=== PATIENT | male | born 1945 | race Caucasian/White ===

== ENCOUNTER → 2016-10-08 | Outpatient (CLI) | payer MEDICARE ==
[~2016-10-08] MED LIST: /ALEN70TA OR; /FENO48TA OR; /PANT40TA OR; /PANT40TA PO; /PRAV20TA PO; ASPI81TA45 PO; ASPI81TA83 OR; ATIV0.5T3 PO; AUGM500T34 PO; AUGM875T27 PO; AZAT50TA2 PO; AZAT5TAB PO; Antibiotic PO; B COCAP4 PO; BACITAB3 PO; BACT400T OR; CALC0.25 PO; CEFT500T OR; CEFT500T PO; DIAZ2TAB PO; DICL13PA TD; DICL50TAB PO; DOCU10CA PO; DOXY150C PO; DYAZCA PO; FENT1DIS14 TD; FERR325T OR; FERR325T69 PO; FOSI10TA PO; FOSI10TA2 OR; GABA300C3 PO; HYDR-4274 PO; HYDR25T PO; HYDR50TA8 OR; HYDROCHLOROTHIAZIDE; HYDROCHLOROTHIAZIDE PO; IMURAN OR; KPHOS PO; LABE10TAB PO; LABE30TA OR; LIDO5DIS36 TD; MAG400TA PO; MAGN500T PO; MAGN500T5 PO; MAGNESIUM GLUCONATE PO; META28.35 PO; METAPKT PO; MILKSUS PO; MONOPRIL PO; MULTCAP PO; NEPH1CAP4 PO; NEUR300C PO; OXYC-208 PO; OXYCO5TA PO; PERCOCET PO; POTA50TAB PO; PRAVASTATIN OR; PRED5TA PO; PRED5TAB OR; PROM25TA PO; RAPA1TAB PO; SENN15UDC PO; SENO8.6T10 PO; SENO8.6T2 PO; SENS60TA PO; SENSIPAR; SENSIPAR OR; SODI1TA PO; SOMA250T PO; SPIR25TA2 PO; SUPETAB PO; TEMA15CA2 PO; TORS20TA2 PO; TRAM50TA2 OR; TRIA37.53 PO; TRIAMTERENE; TRIAMTERENE PO; TYLE325T5 PO; TYLENOL PO; VOLT1GEL24 TD; ZANA4CAP PO; ZITH250T OR; ZOLP10TA2 PO; [UNRECOGNIZED DRUG - CODE]; [UNRECOGNIZED DRUG - CODE]; [UNRECOGNIZED DRUG - OTHER] OR; [UNRECOGNIZED DRUG - OTHER] PO; [UNRECOGNIZED DRUG - OTHER] PO; [UNRECOGNIZED DRUG - OTHER] PO; atarax PO
--- NOTE | 2016-10-08 13:21 | REP ---
MRI study left knee without contrast: History: Left knee pain. Injury in a fall 2 weeks ago. No comparison radiographs available. Technique: Axial, coronal, and sagittal imaging planes are utilized for T1, proton density and T2-weighted scans obtained in the usual fashion with and without fat saturation. MRI findings: There is evidence of mild marrow edema in the posterior aspect and medial aspect of the proximal tibia consistent with some degree of marrow contusion. No occult fracture is visible. There is a zone of marrow edema in the posterior aspect of the medial femoral condyle as well. Subcortical cyst formation is seen in the central patella. Cortical and medullary bone signal intensity are otherwise normal. There is diffuse swelling and heterogeneous increased signal intensity on T2-weighted true FISP sequence in the patellar tendon consistent with patellar tendinosis tendonitis. There is some bony hypertrophy at the patellar tendon insertion on the body of the patella. Quadriceps tendon is unremarkable. There is minimal osteophytic lipping of the patella on sagittal images. Medial and lateral patellar retinacular structures appear intact. There is no evidence of medial or lateral collateral ligament disruption. Anterior and posterior cruciate ligaments have an intact appearance. There is a complex tear involving the midbody and posterior horn of the medial meniscus with increased signal intensity extending predominately to the inferior articular margin of the meniscus. No displaced meniscal material is appreciated. No definite lateral meniscal tear is seen. There is diffuse thinning of the articular cartilage at the medial femoral condyle and medial tibial plateau consistent with chondromalacia. There is some chondromalacia in the patella too with a central fissure through the articular cartilage immediately superficial to the subcortical cyst formation mentioned above. There is a small Tariq's cyst in the posteromedial popliteal soft tissues. Impression: 1. Complex tear medial meniscus. 2. Tariq's cyst. 3. Marrow contusion pattern in the posteromedial tibial plateau and in the posterior aspect of the medial femoral condyle. 4. 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 5. Advanced tendinosis in the patellar tendon diffusely. 6. Early osteoarthritic patellar spurring. Signed by Vadim Warner MD 10/08/2016 01:44 P
== END ==
LOC: M RAD 11:20
PROVIDERS: ATTEND Physician Assistant Medical
DX: M25.562 Pain in left knee (principal)

== ENCOUNTER → 2016-11-01 | Outpatient (REF) | payer MEDICARE ==
[~2016-11-01] MED LIST changes: +OXYC-517 PO; -OXYCO5TA PO
== END ==
LOC: M LAB REF 13:19
PROVIDERS: ATTEND Internal Medicine Nephrology
DX: Z94.0 Kidney transplant status (principal)

== ENCOUNTER → 2017-01-06 | Outpatient (REF) | payer MEDICARE ==
[~2017-01-06] MED LIST changes: +GABA-282 PO; -GABA300C3 PO
== END ==
LOC: M LAB REF 14:04
PROVIDERS: ATTEND Internal Medicine Nephrology
DX: Z94.0 Kidney transplant status (principal)

== ENCOUNTER → 2017-01-20 | Outpatient (REF) | payer MEDICARE | LOC: M LAB REF 10:30 | PROVIDERS: ATTEND Surgery | DX: C44.621 Squamous cell carcinoma of skin of unspecified upper limb, including shoulder (principal) ==

== ENCOUNTER → 2017-04-11 | Outpatient (REF) | payer MEDICARE ==
[~2017-04-11] MED LIST changes: +AMIL25TA; -AUGM875T27 PO; +AUGM875T28 PO; -AZAT5TAB PO; +BACITAB PO; -BACITAB3 PO; +CINA30TA; +HYDR-3363 PO; -HYDR-4274 PO; -HYDR25T PO; +HYDR50TA70 PO; +KPHOS50TA; -LIDO5DIS36 TD; +LIDO5DIS41 TD; +METO50TA7; +POTA10TA17; -SENO8.6T2 PO; +SENO8.6T5 PO; +VOLT1GEL15 TD; -VOLT1GEL24 TD
== END ==
LOC: M LAB REF 13:38
PROVIDERS: ATTEND Internal Medicine Nephrology
DX: Z94.0 Kidney transplant status (principal)

== ENCOUNTER 2017-06-28 11:08 | Emergency (ER) | payer MEDICARE ==
[~2017-06-28] VITALS: Ht 177.8 cm; Wt 77.3 kg
[~2017-06-28 11:08] MED LIST changes: -AMIL25TA; -CINA30TA; -KPHOS50TA; -METO50TA7; -POTA10TA17
[2017-06-28] MEDS ORDERED: AMIL25TA (11:20)
[2017-06-28] MEDS ORDERED: CINA30TA (11:20)
[2017-06-28] MEDS ORDERED: POTA10TA17 (11:20)
[2017-06-28] MEDS ORDERED: METO50TA7 (11:20)
[2017-06-28] MEDS ORDERED: KPHOS50TA (11:20)
[2017-06-28 14:12] LABS: BASO % 0.1 % (0.0-1.0); EOS % 0.1 % (0.0-3.0); IMMATURE GRANULOCYTE % 0.6 % (0-0); LYMPH # 1.7 10^3/uL (1.5-4.5); LYMPH % 20.9 % (24.0-44.0); MEAN CORPUSCULAR HEMOGLOBIN 28.9 pg (27.0-33.0); MEAN CORPUSCULAR HGB CONC 32.7 g/dl (32.0-36.5); MEAN CORPUSCULAR VOLUME 88.5 fl (80.0-96.0); MONO # 0.7 10^3/uL (0.0-0.8); MONO % 8.4 % (0.0-5.0); NEUTROPHILS # 5.6 10^3/uL (1.8-7.7); NEUTROPHILS % 69.9 % (36.0-66.0); PLATELET COUNT, AUTOMATED 191 10^3/uL (150-450); RED CELL DISTRIBUTION WIDTH 14.9 % (11.5-14.5)
[2017-06-28 14:15] LABS: ADD MANUAL DIFFER NO; DIFF SLIDE NUMBER 261
[2017-06-28 14:18] LABS: INR 0.87
[2017-06-28 14:39] LABS: ALBUMIN 3.6 GM/DL (3.2-5.2); ALBUMIN/GLOBULIN RATIO 1.24 (1.00-1.93); ALKALINE PHOSPHATASE 88 U/L (45-117); ALT/SGPT 49 U/L (12-78); ANION GAP 6 MEQ/L (8-16); AST/SGOT 51 U/L (15-37); BILIRUBIN,DIRECT 0.2 MG/DL (0.0-0.2); BILIRUBIN,TOTAL 0.6 MG/DL (0.2-1.0); BLOOD UREA NITROGEN 15 MG/DL (7-18); CALCIUM LEVEL 8.9 MG/DL (8.8-10.2); CARBON DIOXIDE LEVEL 27 MEQ/L (21-32); CHLORIDE LEVEL 109 MEQ/L (98-107); CREATININE FOR GFR 0.77 MG/DL (0.70-1.30); GLOMERULAR FILTRATION RATE > 60.0 (>42); GLUCOSE, FASTING 109 MG/DL (83-110); POTASSIUM SERUM 4.4 MEQ/L (3.5-5.1); SODIUM LEVEL 142 MEQ/L (136-145); TOTAL PROTEIN 6.5 GM/DL (6.4-8.2)
[2017-06-28 15:28] VITALS: BP 143/82
== END 2017-06-28 15:32 | disposition home or self-care (01) ==
LOC: M ED 11:08
DX: K46.9 Unspecified abdominal hernia without obstruction or gangrene (principal); I10 Essential (primary) hypertension; F41.9 Anxiety disorder, unspecified; Z79.899 Other long term (current) drug therapy; Z79.82 Long term (current) use of aspirin; Z79.52 Long term (current) use of systemic steroids; Z88.5 Allergy status to narcotic agent; Z88.8 Allergy status to other drugs, medicaments and biological substances; Z94.0 Kidney transplant status; Z98.890 Other specified postprocedural states

== ENCOUNTER → 2017-09-07 | Outpatient (REF) | payer MEDICARE ==
[~2017-09-07] MED LIST changes: +AMIL25TA; +CINA30TA; +KPHOS50TA; +METO50TA7; +POTA10TA17
== END ==
LOC: M LAB REF 11:14
PROVIDERS: ATTEND Internal Medicine Nephrology
DX: Z94.0 Kidney transplant status (principal); R19.7 Diarrhea, unspecified

== ENCOUNTER → 2017-10-03 | Outpatient (CLI) | payer MEDICARE | LOC: M RAD 13:12 | DX: R13.10 Dysphagia, unspecified (principal) | CPT/HCPCS: 72040 ==

== ENCOUNTER → 2017-10-20 | Outpatient (REF) | payer MEDICARE | LOC: M LAB REF 18:09 | DX: D48.5 Neoplasm of uncertain behavior of skin (principal) | CPT/HCPCS: 88305 ==

== ENCOUNTER 2017-11-11 08:26 | Day surgery (SDC) | payer MEDICARE ==
[2017-11-11] MEDS ORDERED: LR 1,000 ML IV ×2 (08:45→13:00)
[2017-11-11] MEDS: METOPROLOL TART 50 MG TAB PO (10:44)
[2017-11-11] MEDS ORDERED: MIDAZOLAM INJ 2 MG/2 ML VIAL (J2250) As Ordered (11:09)
[2017-11-11] MEDS ORDERED: fentaNYL 100 MCG/2 ML INJECTION (J3010) As Ordered (11:09)
[2017-11-11] MEDS ORDERED: PROPOFOL 200 MG/20 ML VIAL As Ordered ×2 (11:09→12:01)
[2017-11-11] MEDS: BUPIVACAINE HCL 0.25% 10 ML VIAL As Ordered (11:55)
[2017-11-11] MEDS: LIDOCAINE W/EPINEPHRINE 1% 20ML VIAL As Ordered (11:55)
[2017-11-11] MEDS: BACITRACIN OINT 30GM As Ordered (12:00)
[2017-11-11] MEDS ORDERED: ONDANSETRON 4MG/2ML VIAL (J2405) IV ×2 (13:00)
[2017-11-11] MEDS ORDERED: PERCOCET 5MG/325MG TAB PO (13:00)
[2017-11-11] MEDS ORDERED: fentaNYL 100 MCG/2 ML INJECTION (J3010) IV (13:00)
[2017-11-11] MEDS ORDERED: NORCO, ANEXSIA 5/325MG TABLET (HYDROcodone/ACETAMINOPHEN) PO (13:00)
== END 2017-11-11 13:00 | disposition home or self-care (01) ==
LOC: M SDC 08:26
DX: C44.42 Squamous cell carcinoma of skin of scalp and neck (principal); L57.0 Actinic keratosis; I11.0 Hypertensive heart disease with heart failure; I50.32 Chronic diastolic (congestive) heart failure; E78.00 Pure hypercholesterolemia, unspecified; Z94.0 Kidney transplant status; R13.10 Dysphagia, unspecified; E83.42 Hypomagnesemia; N25.81 Secondary hyperparathyroidism of renal origin; G47.00 Insomnia, unspecified; M54.2 Cervicalgia; K21.9 Gastro-esophageal reflux disease without esophagitis; M19.90 Unspecified osteoarthritis, unspecified site; R01.0 Benign and innocent cardiac murmurs; Z79.899 Other long term (current) drug therapy; Z79.82 Long term (current) use of aspirin; Z79.52 Long term (current) use of systemic steroids; Z88.8 Allergy status to other drugs, medicaments and biological substances; Z88.1 Allergy status to other antibiotic agents; Z88.5 Allergy status to narcotic agent
CPT/HCPCS: 14020

== ENCOUNTER 2017-12-09 19:36 | Emergency (ER) | payer MEDICARE ==
[2017-12-09] MEDS: methylPREDNISolone INJ 125 MG/2 ML VIAL (J2930) IM (22:30)
[2017-12-09] MEDS: PREGABALIN 75 MG CAP(LYRICA) PO (22:30)
== END 2017-12-09 23:08 | disposition home or self-care (01) ==
LOC: M ED 19:36
DX: M54.12 Radiculopathy, cervical region (principal); G89.29 Other chronic pain; I12.9 Hypertensive chronic kidney disease with stage 1 through stage 4 chronic kidney disease, or unspecified chronic kidney disease; N18.9 Chronic kidney disease, unspecified; Z88.8 Allergy status to other drugs, medicaments and biological substances; Z88.1 Allergy status to other antibiotic agents; Z88.5 Allergy status to narcotic agent; Z94.0 Kidney transplant status; Z98.890 Other specified postprocedural states; Z87.891 Personal history of nicotine dependence
CPT/HCPCS: J2930

== ENCOUNTER → 2018-01-25 | Outpatient (REF) | payer MEDICARE ==
[2018-01-27 08:06] LABS: SIROLIMUS (RAPAMUNE) LABCORP 23.2 ng/mL (3.0-20.0)
== END ==
LOC: M LAB REF 13:11
DX: Z94.0 Kidney transplant status (principal)
CPT/HCPCS: 80195

== ENCOUNTER → 2018-02-27 | Outpatient (CLI) | payer MEDICARE ==
[2018-02-27 13:58] LABS: HEMATOCRIT 40.2 % (42.0-52.0); HEMOGLOBIN 12.9 g/dl (13.5-17.5); MEAN CORPUSCULAR HEMOGLOBIN 28.9 pg (27.0-33.0); MEAN CORPUSCULAR HGB CONC 32.1 g/dl (32.0-36.5); MEAN CORPUSCULAR VOLUME 89.9 fl (80.0-96.0); PLATELET COUNT, AUTOMATED 208 10^3/uL (150-450); RED BLOOD COUNT 4.47 10^6/uL (4.30-6.10); RED CELL DISTRIBUTION WIDTH 14.5 % (11.5-14.5); WHITE BLOOD COUNT 8.5 10^3/uL (4.0-10.0)
[2018-02-27 14:27] LABS: ANION GAP 2 MEQ/L (8-16); BLOOD UREA NITROGEN 18 MG/DL (7-18); CALCIUM LEVEL 9.4 MG/DL (8.8-10.2); CARBON DIOXIDE LEVEL 31 MEQ/L (21-32); CHLORIDE LEVEL 108 MEQ/L (98-107); CREATININE FOR GFR 0.81 MG/DL (0.70-1.30); GLOMERULAR FILTRATION RATE > 60.0 (>42); GLUCOSE, FASTING 112 MG/DL (70-100); MAGNESIUM LEVEL 1.8 MG/DL (1.8-2.4); POTASSIUM SERUM 4.6 MEQ/L (3.5-5.1); SODIUM LEVEL 141 MEQ/L (136-145); THYROID STIMULATING HORMONE 0.859 uIU/ML (0.358-3.740)
== END ==
LOC: M LAB 13:08
DX: I48.91 Unspecified atrial fibrillation (principal)
CPT/HCPCS: 83735

== ENCOUNTER → 2018-05-09 | Outpatient (REF) | payer MEDICARE ==
[2018-05-13 08:06] LABS: SIROLIMUS (RAPAMUNE) LABCORP 23.7 ng/mL (3.0-20.0)
== END ==
LOC: M LAB REF 13:21
DX: Z94.0 Kidney transplant status (principal); E83.42 Hypomagnesemia; N25.81 Secondary hyperparathyroidism of renal origin
CPT/HCPCS: 80195

== ENCOUNTER → 2018-05-16 | Outpatient (REF) | payer MEDICARE ==
[2018-05-16 13:38] LABS: INR 3.84; PROTHROMBIN TIME 38.7 SECONDS (12.1-14.4)
== END ==
LOC: M LAB REF 13:06
DX: Z79.01 Long term (current) use of anticoagulants (principal)
CPT/HCPCS: 85610

== ENCOUNTER → 2018-06-02 | Outpatient (REF) | payer MEDICARE ==
[2018-06-02 13:39] LABS: PROTHROMBIN TIME 13.3 SECONDS (12.1-14.4)
== END ==
LOC: M LAB REF 13:04
DX: Z51.81 Encounter for therapeutic drug level monitoring (principal); Z79.01 Long term (current) use of anticoagulants
CPT/HCPCS: 85610

== ENCOUNTER → 2018-06-02 | Outpatient (REF) | payer MEDICARE ==
[2018-06-09 00:07] LABS: SIROLIMUS (RAPAMUNE) LABCORP 24.1 ng/mL (3.0-20.0)
== END ==
LOC: M LAB REF 17:24
DX: Z94.0 Kidney transplant status (principal)
CPT/HCPCS: 80195

== ENCOUNTER → 2018-06-09 | Outpatient (REF) | payer MEDICARE ==
[2018-06-14 00:07] LABS: SIROLIMUS (RAPAMUNE) LABCORP 10.8 ng/mL (3.0-20.0)
== END ==
LOC: M LAB REF 13:04
DX: Z94.0 Kidney transplant status (principal); Z51.81 Encounter for therapeutic drug level monitoring; Z79.01 Long term (current) use of anticoagulants
CPT/HCPCS: 85610

== ENCOUNTER → 2018-06-09 | Outpatient (REF) | payer MEDICARE ==
[2018-06-09 14:06] LABS: INR 1.67
== END ==
LOC: M LAB REF 12:55
DX: Z51.81 Encounter for therapeutic drug level monitoring (principal); Z79.01 Long term (current) use of anticoagulants

== ENCOUNTER → 2018-06-13 | Outpatient (REF) | payer MEDICARE | LOC: M LAB REF 15:29 | DX: L08.9 Local infection of the skin and subcutaneous tissue, unspecified (principal) | CPT/HCPCS: 87186 ==

== ENCOUNTER → 2018-06-16 | Outpatient (REF) | payer MEDICARE ==
[2018-06-16 13:40] LABS: INR 2.29; PROTHROMBIN TIME 25.7 SECONDS (12.1-14.4)
== END ==
LOC: M LAB REF 12:59
DX: Z79.01 Long term (current) use of anticoagulants (principal)
CPT/HCPCS: 85610

== ENCOUNTER → 2018-06-19 | Outpatient (CLI) | payer MEDICARE ==
[2018-06-19 16:18] LABS: INR 1.19; PROTHROMBIN TIME 15.3 SECONDS (12.1-14.4)
== END ==
LOC: M LAB 15:37
DX: Z51.81 Encounter for therapeutic drug level monitoring (principal); Z79.899 Other long term (current) drug therapy; L03.113 Cellulitis of right upper limb
CPT/HCPCS: 85610

== ENCOUNTER → 2018-06-23 | Outpatient (REF) | payer MEDICARE ==
[2018-06-23 13:56] LABS: PROTHROMBIN TIME 22.1 SECONDS (12.1-14.4)
== END ==
LOC: M LAB REF 13:06
DX: Z79.01 Long term (current) use of anticoagulants (principal)
CPT/HCPCS: 85610

== ENCOUNTER → 2018-06-30 | Outpatient (REF) | payer MEDICARE ==
[2018-06-30 14:02] LABS: INR 2.34; PROTHROMBIN TIME 26.1 SECONDS (12.1-14.4)
== END ==
LOC: M LAB REF 13:07
DX: Z79.01 Long term (current) use of anticoagulants (principal)
CPT/HCPCS: 85610

== ENCOUNTER → 2018-07-10 | Outpatient (REF) | payer MEDICARE ==
[2018-07-10 14:01] LABS: INR 3.54; PROTHROMBIN TIME 36.3 SECONDS (12.1-14.4)
== END ==
LOC: M LAB REF 12:59
DX: Z79.01 Long term (current) use of anticoagulants (principal); Z94.0 Kidney transplant status
CPT/HCPCS: 85610

== ENCOUNTER → 2018-07-17 | Outpatient (REF) | payer MEDICARE ==
[2018-07-17 13:50] LABS: INR 2.23; PROTHROMBIN TIME 25.1 SECONDS (12.1-14.4)
== END ==
LOC: M LAB REF 13:13
DX: Z51.81 Encounter for therapeutic drug level monitoring (principal); Z79.01 Long term (current) use of anticoagulants
CPT/HCPCS: 85610

== ENCOUNTER → 2018-07-24 | Outpatient (REF) | payer MEDICARE ==
[2018-07-24 13:22] LABS: PROTHROMBIN TIME 20.3 SECONDS (12.1-14.4)
== END ==
LOC: M LAB REF 12:52
DX: Z79.01 Long term (current) use of anticoagulants (principal)
CPT/HCPCS: 85610

== ENCOUNTER → 2018-07-31 | Outpatient (REF) | payer MEDICARE ==
[2018-07-31 14:33] LABS: INR 1.39; PROTHROMBIN TIME 17.3 SECONDS (12.1-14.4)
== END ==
LOC: M LAB REF 12:50
DX: Z79.01 Long term (current) use of anticoagulants (principal)
CPT/HCPCS: 85610

== ENCOUNTER → 2018-08-07 | Outpatient (REF) | payer MEDICARE ==
[2018-08-07 13:50] LABS: PROTHROMBIN TIME 17.4 SECONDS (12.1-14.4)
== END ==
LOC: M LAB REF 12:48
DX: Z79.01 Long term (current) use of anticoagulants (principal)
CPT/HCPCS: 85610

== ENCOUNTER → 2018-08-11 | Outpatient (REF) | payer MEDICARE ==
[2018-08-11 13:45] LABS: INR 1.34; PROTHROMBIN TIME 16.8 SECONDS (12.1-14.4)
[2018-08-13 10:12] LABS: SIROLIMUS (RAPAMUNE) LABCORP 13.6 ng/mL (3.0-20.0)
== END ==
LOC: M LAB REF 13:13
DX: Z94.0 Kidney transplant status (principal); Z79.01 Long term (current) use of anticoagulants
CPT/HCPCS: 85610

== ENCOUNTER 2018-08-23 13:52 | Day surgery (SDC) | payer MEDICARE ==
[2018-08-23] MEDS: LR 1,000 ML IV (14:44)
[2018-08-23] MEDS: VANCOMYCIN HCL 1,000 MG, VIAL MATE ADAPTER 1 EACH in D5W 250 ML IV (15:14)
[2018-08-23 15:20] LABS: INR 0.92; PROTHROMBIN TIME 12.5 SECONDS (12.1-14.4)
[2018-08-23] MEDS ORDERED: METOCLOPRAMIDE INJ 10MG/2ML VIAL (J2765) As Ordered (16:52)
[2018-08-23] MEDS ORDERED: PROPOFOL 200 MG/20 ML VIAL As Ordered (16:52)
[2018-08-23] MEDS ORDERED: dexameTHASONE 4 MG/ML 1ML VIAL (J1100) As Ordered (16:52)
[2018-08-23] MEDS ORDERED: ONDANSETRON 4MG/2ML VIAL (J2405) As Ordered (16:52)
[2018-08-23] MEDS ORDERED: MIDAZOLAM INJ 2 MG/2 ML VIAL (J2250) As Ordered (16:52)
[2018-08-23] MEDS ORDERED: fentaNYL 100 MCG/2 ML INJECTION (J3010) As Ordered (16:52)
[2018-08-23] MEDS ORDERED: LIDOCAINE 2% INJ 100 MG/5 ML SDV (FOR ANES.) As Ordered (16:52)
[2018-08-23] MEDS: TRIAMCINOLONE ACETONIDE SUSP 40 MG/ML VIAL (J3301) As Ordered (17:11)
[2018-08-23] MEDS: ROPIvacaine 0.5% 30 ML INJECTION (J2795 PER 1MG) As Ordered (17:16)
[2018-08-23] MEDS ORDERED: MORPHINE 4 MG/ML 1ML VIAL/SYRINGE (J2270) IV (18:00)
[2018-08-23] MEDS ORDERED: LR 1,000 ML IV ×2 (18:00)
[2018-08-23] MEDS ORDERED: ONDANSETRON 4MG/2ML VIAL (J2405) IV (18:00)
[2018-08-23] MEDS ORDERED: fentaNYL 100 MCG/2 ML INJECTION (J3010) IV (18:00)
[2018-08-23] MEDS ORDERED: NORCO, ANEXSIA 5/325MG TABLET (HYDROcodone/ACETAMINOPHEN) PO ×3 (18:00)
== END 2018-08-23 18:50 | disposition home or self-care (01) ==
LOC: M SDC 13:52
DX: M23.201 Derangement of unspecified lateral meniscus due to old tear or injury, left knee (principal); M23.204 Derangement of unspecified medial meniscus due to old tear or injury, left knee; M11.262 Other chondrocalcinosis, left knee; I35.0 Nonrheumatic aortic (valve) stenosis; I48.91 Unspecified atrial fibrillation; I50.32 Chronic diastolic (congestive) heart failure; N25.81 Secondary hyperparathyroidism of renal origin; E83.42 Hypomagnesemia; N18.2 Chronic kidney disease, stage 2 (mild); F41.9 Anxiety disorder, unspecified; R51 Headache; R01.1 Cardiac murmur, unspecified; E03.9 Hypothyroidism, unspecified; M54.2 Cervicalgia; K44.9 Diaphragmatic hernia without obstruction or gangrene; K21.9 Gastro-esophageal reflux disease without esophagitis; D64.9 Anemia, unspecified; M12.9 Arthropathy, unspecified; M81.0 Age-related osteoporosis without current pathological fracture; Z88.1 Allergy status to other antibiotic agents; Z88.5 Allergy status to narcotic agent; Z88.8 Allergy status to other drugs, medicaments and biological substances; Z79.899 Other long term (current) drug therapy; Z79.01 Long term (current) use of anticoagulants; Z79.82 Long term (current) use of aspirin; Z94.0 Kidney transplant status; Z98.1 Arthrodesis status; Z85.828 Personal history of other malignant neoplasm of skin; Z87.442 Personal history of urinary calculi; Z87.891 Personal history of nicotine dependence
CPT/HCPCS: 29881

== ENCOUNTER → 2018-08-28 | Outpatient (REF) | payer MEDICARE | LOC: M LAB REF 17:20 | DX: Z94.0 Kidney transplant status (principal); N39.0 Urinary tract infection, site not specified | CPT/HCPCS: 87086 ==

== ENCOUNTER → 2018-09-01 | Outpatient (REF) | payer MEDICARE ==
[2018-09-01 13:37] LABS: INR 1.13; PROTHROMBIN TIME 14.7 SECONDS (12.1-14.4)
[2018-09-04 10:08] LABS: SIROLIMUS (RAPAMUNE) LABCORP 4.3 ng/mL (3.0-20.0)
== END ==
LOC: M LAB REF 12:59
DX: Z94.0 Kidney transplant status (principal); Z79.01 Long term (current) use of anticoagulants
CPT/HCPCS: 85610

== ENCOUNTER → 2018-09-05 | Outpatient (CLI) | payer MEDICARE | LOC: M RAD 08:02 | DX: Z94.0 Kidney transplant status (principal); N20.0 Calculus of kidney; K40.90 Unilateral inguinal hernia, without obstruction or gangrene, not specified as recurrent; M51.36 Other intervertebral disc degeneration, lumbar region; N28.1 Cyst of kidney, acquired | CPT/HCPCS: 74176 ==

== ENCOUNTER 2018-10-16 12:51 | Emergency (ER) | payer MEDICARE ==
[~2018-10-16] VITALS: Ht 172.7 cm; Wt 78.2 kg
[~2018-10-16 12:51] MED LIST changes: -AMIL25TA; +AMIL25TA PO; +ASPI81TA85 PO; +CALC1CAP31 PO; -CINA30TA; +CINA30TA PO; +CYCL10TA PO; -GABA-282 PO; +GABA-843 PO; +LYRI150C PO; -METO50TA7; +METO50TA7 PO; +MILK120011 PO; -MILKSUS PO; +ONDA4TAB5 PO; -POTA10TA17; +POTA10TA17 PO; +RANI150T PO; +SPIR-10 PO; -SPIR25TA2 PO; +VIRT1TAB8 PO; +WARF-18 PO
[2018-10-16] MEDS ORDERED: NS 500 ML IV ONE (14:00)
[2018-10-16] MEDS ORDERED: MORPHINE 4 MG/ML 1ML VIAL/SYRINGE (J2270) IV ONE (14:00)
[2018-10-16] MEDS: GASTROGRAFIN SOLUTION 30ML PO SCH ×2 (15:02→15:31)
[2018-10-16 15:09] LABS: BASO % 0.4 % (0.0-1.0); EOS % 0.3 % (0.0-3.0); HEMOGLOBIN 13.2 g/dl (13.5-17.5); LYMPH # 1.9 10^3/uL (1.5-4.5); LYMPH % 20.7 % (24.0-44.0); MEAN CORPUSCULAR VOLUME 90.9 fl (80.0-96.0); MONO % 11.3 % (0.0-5.0); NEUTROPHILS # 5.8 10^3/uL (1.8-7.7); NEUTROPHILS % 63.7 % (36.0-66.0); WHITE BLOOD COUNT 9.1 10^3/uL (4.0-10.0)
[2018-10-16 15:11] LABS: ALBUMIN 3.3 GM/DL (3.2-5.2); ALT/SGPT 31 U/L (12-78); BILIRUBIN,TOTAL 0.5 MG/DL (0.2-1.0); BLOOD UREA NITROGEN 19 MG/DL (7-18); C REACTIVE PROTEIN QUANTITATIV 2.28 MG/DL (0.00-0.30); CALCIUM LEVEL 9.6 MG/DL (8.8-10.2); CARBON DIOXIDE LEVEL 32 MEQ/L (21-32); CHLORIDE LEVEL 105 MEQ/L (98-107); CREATININE FOR GFR 0.87 MG/DL (0.70-1.30); GLOMERULAR FILTRATION RATE > 60.0 (>42); GLUCOSE, FASTING 129 MG/DL (70-100); POTASSIUM SERUM 4.4 MEQ/L (3.5-5.1); SODIUM LEVEL 140 MEQ/L (136-145); TOTAL PROTEIN 6.7 GM/DL (6.4-8.2)
[2018-10-16] MEDS ORDERED: ISOVUE-370 76% 100ML VIAL (Q9967) As Ordered ONE (16:49)
[2018-10-16 18:08] VITALS: BP 131/89
--- NOTE | 2018-10-16 18:31 | REP ---
CT abdomen and pelvis with IV and oral contrast: History: Right lower quadrant pain. History of numerous hernias. Comparison study: September 05, 2018. CT contrast dose: 100 mL of intravenous Isovue 370. Findings: The patient is status post bilateral nephrectomy. In the left renal bed and to a lesser extent, in the right renal bed. There are areas of dystrophic calcifications/fat necrosis. These are unchanged. There is another area of old appearing peripherally calcified fat necrosis in the right mid abdomen unchanged. A ventral hernia is seen transmitting loops of jejunum in the epigastric region above the level of a ventral hernia repair. A left inguinal hernia is again noted transmitting an unobstructed loop of sigmoid colon. A transplant kidney is noted on the right with a 3.4 cm cyst. This is unchanged. There is a calculus in the transplant kidney in the right iliac fossa. The calculus measures 4 mm in greatest diameter. This is also unchanged. There is no evidence of hydronephrosis. A larger calculus is seen in the lower pole of the kidney transplant. This measures 7 mm in diameter. No vascular abnormality is observed. Urinary bladder is unremarkable. No hepatic or splenic abnormality is seen. Pancreas is unremarkable. No adrenal lesion is seen. Gallbladder is unremarkable. Impression: Stable CT findings. The patient status post thoracolumbar fusion, bilateral nephrectomy, right renal transplant and ventral hernia repair. Epigastric hernia transmitting small bowel and left inguinal hernia transmitting large bowel again seen. There is a 3.4 cm cyst in the in the transplant kidney and there are two intrarenal calculi, unchanged. No acute abdominal or pelvic abnormality. Electronically Signed by Vadim Warner MD 10/16/2018 06:57 P
== END 2018-10-16 18:10 | disposition home or self-care (01) ==
LOC: M ED 12:51
DX: R10.31 Right lower quadrant pain (principal); I11.0 Hypertensive heart disease with heart failure; I50.9 Heart failure, unspecified; N28.9 Disorder of kidney and ureter, unspecified; K21.9 Gastro-esophageal reflux disease without esophagitis; F41.9 Anxiety disorder, unspecified; K44.9 Diaphragmatic hernia without obstruction or gangrene; Z87.440 Personal history of urinary (tract) infections; Z87.442 Personal history of urinary calculi; Z79.899 Other long term (current) drug therapy; Z79.82 Long term (current) use of aspirin; Z79.01 Long term (current) use of anticoagulants; Z88.0 Allergy status to penicillin; Z88.1 Allergy status to other antibiotic agents; Z88.5 Allergy status to narcotic agent; Z88.8 Allergy status to other drugs, medicaments and biological substances; Z87.891 Personal history of nicotine dependence
CPT/HCPCS: 36415; 74177; 80053; 81001; 83605; 85025; 86140; 96361; 96374; 99284; J2270; Q9963; Q9967

== ENCOUNTER 2018-10-23 08:59 | Emergency (ER) | payer MEDICARE ==
[~2018-10-23] VITALS: Ht 175.3 cm; Wt 77.3 kg
[2018-10-23 10:31] LABS: HEMATOCRIT 41.2 % (42.0-52.0); HEMOGLOBIN 13.5 g/dl (13.5-17.5); LYMPH % 15.9 % (24.0-44.0); MEAN CORPUSCULAR HEMOGLOBIN 29.8 pg (27.0-33.0); MEAN CORPUSCULAR HGB CONC 32.8 g/dl (32.0-36.5); MEAN CORPUSCULAR VOLUME 90.9 fl (80.0-96.0); MONO % 9.2 % (0.0-5.0); NEUTROPHILS % 72.5 % (36.0-66.0); PLATELET COUNT, AUTOMATED 204 10^3/uL (150-450); RED BLOOD COUNT 4.53 10^6/uL (4.30-6.10)
[2018-10-23 10:32] LABS: BASO % 0.3 % (0.0-1.0); EOS % 0.2 % (0.0-3.0); LYMPH # 1.6 10^3/uL (1.5-4.5); MONO # 0.9 10^3/uL (0.0-0.8); NEUTROPHILS # 7.2 10^3/uL (1.8-7.7)
[2018-10-23 11:04] LABS: ALBUMIN 3.2 GM/DL (3.2-5.2); ALT/SGPT 27 U/L (12-78); BILIRUBIN,DIRECT 0.2 MG/DL (0.0-0.2); BILIRUBIN,TOTAL 0.5 MG/DL (0.2-1.0); BLOOD UREA NITROGEN 19 MG/DL (7-18); CALCIUM LEVEL 9.9 MG/DL (8.8-10.2); CARBON DIOXIDE LEVEL 30 MEQ/L (21-32); CHLORIDE LEVEL 101 MEQ/L (98-107); CREATININE FOR GFR 0.79 MG/DL (0.70-1.30); GLOMERULAR FILTRATION RATE > 60.0 (>42); GLUCOSE, FASTING 132 MG/DL (70-100); LIPASE 50 U/L (73-393); POTASSIUM SERUM 3.7 MEQ/L (3.5-5.1); SODIUM LEVEL 138 MEQ/L (136-145); TOTAL PROTEIN 6.7 GM/DL (6.4-8.2)
[2018-10-23] MEDS ORDERED: MORPHINE 4 MG/ML 1ML VIAL/SYRINGE (J2270) IV ONE (12:00)
[2018-10-23] MEDS ORDERED: NS 1,000 ML IV ONE (12:00)
[2018-10-23 12:16] LABS: INR 1.35; PROTHROMBIN TIME 16.8 SECONDS (12.1-14.4)
[2018-10-23 12:35] LABS: MAGNESIUM LEVEL 1.7 MG/DL (1.8-2.4)
[2018-10-23] MEDS ORDERED: MAG SULF 1GM/100ML (MAG RUN) 1 GM in APPROPRIATE DILUENT 1 EA IV ONE (13:15)
[2018-10-23 15:19] VITALS: BP 127/89
== END 2018-10-23 15:15 | disposition home or self-care (01) ==
LOC: M ED 08:59
DX: M79.10 Myalgia, unspecified site (principal); E83.42 Hypomagnesemia; G89.29 Other chronic pain; M54.9 Dorsalgia, unspecified; Z87.442 Personal history of urinary calculi; Z79.82 Long term (current) use of aspirin; Z79.01 Long term (current) use of anticoagulants; Z79.899 Other long term (current) drug therapy; Z88.0 Allergy status to penicillin; Z88.1 Allergy status to other antibiotic agents; Z88.5 Allergy status to narcotic agent; Z88.8 Allergy status to other drugs, medicaments and biological substances
CPT/HCPCS: 36415; 80048; 80076; 81001; 83605; 83690; 83735; 85025; 85610; 96365; 96375; 99284; J2270; J3475

== ENCOUNTER → 2018-11-20 | Outpatient (REF) | payer MEDICARE ==
[2018-11-20 13:45] LABS: INR 2.11; PROTHROMBIN TIME 24.1 SECONDS (12.1-14.4)
== END ==
LOC: M LAB REF 12:42
PROVIDERS: ATTEND Internal Medicine Nephrology
DX: Z94.0 Kidney transplant status (principal); Z79.01 Long term (current) use of anticoagulants

== ENCOUNTER → 2018-11-29 | Outpatient (CLI) | payer MEDICARE ==
--- NOTE | 2018-11-29 10:53 | REP ---
MRI lumbar spine without contrast: History: Lumbar spine stenosis. Severe back and left leg pain. Comparison is made with CT imaging from October 16, 2018. Technique: Sagittal and axial T1 and T2-weighted scans are acquired in the usual fashion with and without fat saturation. Sequences include spin echo, turbo spin-echo, and STIR imaging sequences. MRI findings: The patient is status post trans pedicle screw placement and dorsal fusion at each level from T11 through L2 as seen on that prior CT study. This metallic hardware produces metallic field susceptibility artifact which obscures visualization at L1 and L2 fairly significantly. The L1-2 disc is obscured. At L2-3, there is a left posterior and left foraminal disc protrusion. This produces left foraminal nerve root compression and left thecal sac compression. There is mild central canal stenosis due to developmentally short pedicles and this disc protrusion and bulging. There is mild ligamentum flavum hypertrophy which contributes to the central canal stenosis somewhat as well. At the L3-4, there is moderate central canal stenosis due to diffuse moderate disc bulging, developmentally short pedicles, and ligamentum flavum and facet hypertrophy. AP dimension of the thecal sac in the midline at the L3-4 is 9 mm. There is bilateral disc bulging laterally, left more so than right. At L4-L5, there is severe central canal stenosis. Moderate ligamentum flavum and mild facet hypertrophy is noted bilaterally contributing to the central canal stenosis. There is a right posterior disc protrusion compressing the thecal sac. There is disc bulging and facet hypertrophy producing significant right-sided neural foraminal narrowing at L4-5. The left neural foramen appears adequate. The L4-5 thecal sac in the midline measures only 5.6 mm in AP dimension. At the L5-S1, there is a small central disc protrusion which just indents the ventral margin of the thecal sac in the midline. No nerve root compression is seen. Facet hypertrophy is noted bilaterally. There is some facet hypertrophy producing mild right-sided neural foraminal impingement. Impression: Surgical fusion hardware obscures the upper lumbar spine and the L1-2 disc levels. Degenerative disc disease and central canal stenosis is noted at L3-4 and L4-5. Most prominent central canal stenosis is noted L4-5. Mild central canal stenosis is also noted L2-3. Focal disc protrusions are visible on L2-3 L4-5 and L5-S1. Electronically Signed by Vadim Warner MD 11/29/2018 11:02 A
== END ==
LOC: M RAD 08:44
PROVIDERS: ATTEND Physician Assistant
DX: M48.061 Spinal stenosis, lumbar region without neurogenic claudication (principal); M51.26 Other intervertebral disc displacement, lumbar region; Z98.1 Arthrodesis status

== ENCOUNTER → 2018-12-20 | Outpatient (CLI) | payer MEDICARE ==
--- NOTE | 2018-12-20 21:32 | ECGEPIP ---
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
== END ==
LOC: M EKG 12:12
PROVIDERS: ATTEND Surgery
DX: Z01.818 Encounter for other preprocedural examination (principal); I48.91 Unspecified atrial fibrillation; I25.2 Old myocardial infarction

== ENCOUNTER 2018-12-22 06:06 | Day surgery (SDC) | payer MEDICARE ==
[~2018-12-22] VITALS: Ht 175.3 cm; Wt 73.9 kg
[~2018-12-22 06:06] MED LIST changes: +LR 1,000 ML IV ONE
[2018-12-22 06:48] LABS: INR 0.89; PROTHROMBIN TIME 12.1 SECONDS (12.1-14.4)
[2018-12-22] MEDS ORDERED: BUPIVACAINE LIPOSOME/PF 1.3% 20ML VIAL (13.3MG/ML)(EXPAREL)(C9290 PER1MG) As Ordered ONE (07:14)
[2018-12-22] MEDS ORDERED: BUPIVACAINE HCL 0.25% 30 ML VIAL As Ordered ONE (07:14)
[2018-12-22] MEDS ORDERED: ROCURONIUM BROMIDE 50 MG/5 ML VIAL As Ordered ONE ×2 (08:05→08:33)
[2018-12-22] MEDS ORDERED: fentaNYL 100 MCG/2 ML INJECTION (J3010) As Ordered ONE (08:05)
[2018-12-22] MEDS ORDERED: PROPOFOL 200 MG/20 ML VIAL As Ordered ONE (08:05)
[2018-12-22] MEDS ORDERED: LIDOCAINE 2% INJ 100 MG/5 ML SDV (FOR ANES.) As Ordered ONE (08:05)
[2018-12-22] MEDS ORDERED: MIDAZOLAM INJ 2 MG/2 ML VIAL (J2250) As Ordered ONE (08:05)
[2018-12-22] MEDS ORDERED: dexameTHASONE 4 MG/ML 1ML VIAL (J1100) As Ordered ONE (08:05)
[2018-12-22] MEDS ORDERED: PHENYLEPHRINE INJ 10MG/ML VIAL (J2370) As Ordered ONE (08:11)
[2018-12-22] MEDS ORDERED: ONDANSETRON 4MG/2ML VIAL (J2405) As Ordered ONE (09:10)
[2018-12-22] MEDS ORDERED: SUGAMMADEX SODIUM 500 MG/5 ML VIAL (BRIDION) As Ordered ONE (09:10)
[2018-12-22] MEDS ORDERED: PHENYLephrine HCL 500 MCG/5 ML (100MCG/ML) SYRINGE (J2370) As Ordered ONE (09:46)
[2018-12-22] MEDS ORDERED: LR 1,000 ML IV SCH (11:30)
[2018-12-22] MEDS ORDERED: METOCLOPRAMIDE INJ 10MG/2ML VIAL (J2765) IV PRN (11:30)
[2018-12-22] MEDS ORDERED: fentaNYL 100 MCG/2 ML INJECTION (J3010) IV PRN (11:30)
[2018-12-22] MEDS ORDERED: ONDANSETRON 4MG/2ML VIAL (J2405) IV PRN (11:30)
[2018-12-22] MEDS ORDERED: PERCOCET 5MG/325MG TAB PO PRN ×2 (11:30)
[2018-12-22] MEDS ORDERED: MEPERIDINE INJ 25 MG/ML VIAL (J2175) IV PRN (11:30)
[2018-12-22 13:30] VITALS: BP 135/79
--- NOTE | 2018-12-25 19:41 | RO ---
DATE OF PROCEDURE: 12/22/2018 PREOPERATIVE DIAGNOSIS: Epigastric incisional hernia. POSTOPERATIVE DIAGNOSIS: Incarcerated ventral incisional hernia. PROCEDURE PERFORMED: Laparoscopic repair of incarcerated incisional hernia with extensive lysis of adhesions. SURGEON: Dr. Yosef Gamble ESTIMATOR PROJECT MANAGER: Dr. Leonel Suarez SECOND RN HEART: Iggy Wan, MS III ANESTHESIA: General. INDICATIONS FOR PROCEDURE: Patient is a 73-year-old man who has had a previous renal transplant and several prior surgical procedures for ventral hernias. He has a fairly large hernia bulge in the epigastrium, though the fascial defect appears to be approximately 3-1/2 [address] in diameter by CT. He also has a known left inguinal hernia which is currently asymptomatic. We have elected to proceed with repair of his epigastric hernia which bothers him quite a bit. DESCRIPTION OF PROCEDURE: The patient was brought to the operating room and placed supine on the operating table. The patient was placed under general endotracheal anesthesia. The patient's abdomen was prepped and draped in a sterile fashion. Initial entry into the abdomen was in the left upper quadrant. 0.25% Marcaine was infiltrated at the trocar sites as needed. A short incision was made and a Veress needle was inserted. After a positive hanging drop test, the abdomen was insufflated with carbon dioxide gas. A 5 mm port was placed over a 5 mm scope, and this was advanced through the abdominal wall without difficulty. The camera was inserted. Examination showed extensive adhesions to the mid abdomen. There was a gap in the adhesions superiorly, and it was possible to advance the scope into the left upper quadrant. Portion of the liver appeared normal. Visualized portions of the small bowel appeared normal. However, there were extensive adhesions of omentum and bowel to the anterior abdominal wall certainly beginning around the periumbilical area and extending up high into the epigastrium. A second 5 mm trocar was placed in the left midabdomen and a third trocar was placed in the left lower quadrant. Using either cauterizing scissors or the Harmonic scalpel, an extensive lysis of adhesions was performed. The patient was found to have at least one and perhaps two pieces of prosthetic mesh placed on the anterior abdominal wall. This appeared consistent with [place] Dualmesh patch. Care was taken to avoid any bowel perforation. The defect in the epigastrium was identified, and the patient was noted to have some bowel incarcerated within this hernia. This was carefully dissected out with gentle traction on the bowel and division of the extensive adhesions. The dissection of the adhesions continued to clear an area around the fascial defect for placement of a new piece of mesh. I elected to excise a portion of the [place] mesh that extended up close to the fascial defect, and I felt this was likely to interfere with adherence of a new piece of mesh if it was not removed. Therefore, a of this mesh that extended toward the fascial defect was dissected away from the abdominal wall and then transected. This was later removed through the fascial defect. Once the anterior abdominal wall had been adequately cleared of adhesions, the defect was measured, and I estimated that a 12 cm Parietex patch would adequately cover the sutured defect and with an acceptable extension out onto surrounding tissue. I would note at this point that inspection in the left lower quadrant had confirmed his left inguinal hernia with a portion of his bowel extending into the opening of the defect, but not appearing to be incarcerated. An approximately 5-6 cm transverse skin incision was made directly over the fascial defect. The abdomen was deflated. The hernia sac was identified and the hernia sac was opened. This was dissected from within the subcutaneous pocket and passed off as a specimen. The fascial defect was approximately 3-1/2 to 4 cm in maximum diameter. The 12 cm Parietex patch was selected. A #1-0 Ethibond suture was placed at the midpoint of the fascial defect taking a very small bite of the mesh midpoint. The mesh was then reduced into the abdomen with care to place the nonadherent side against the bowel. The suture was then tied down, fixing the mesh over the center of the fascial defect. Additional 1-0 Ethibond sutures were placed to complete the closure of the fascial defect. The subcutaneous tissues were elevated off of the fascia for several centimeters surrounding the closure to alleviate some of the tension on the closure. The abdomen was then reinflated to a maximum pressure of 10 mmHg. The mesh was spread out and nicely covered the fascial closure with an excellent overlap. Using a SecureStrap tacker, the mesh was tacked along the midline and then extending out to apply the right side of the mesh to the anterior abdominal wall. A fourth 5 mm port was then placed in the right upper quadrant to insert the tacker from the right, and the left side of the mesh was tacked down to the abdominal wall securely. A total of 50 SecureStrap devices were used to apply the mesh. This resulted in an excellent application of the mesh. 20 mL of Exparel were mixed with 20 mL of 0.25% Marcaine, and this was infiltrated widely into the abdominal wall over the area of the mesh application. Small amounts were infiltrated around the trocar sites. Hemostasis was confirmed within the abdomen. The abdomen was then deflated, and the trocars were all removed. The subcutaneous tissues at the larger incision were closed with #0 Vicryl. The skin edges were approximated with Vicryl, and the wounds were all closed with running subcuticular sutures of #4-0 and #5-0 Vicryl. Steri-Strips were applied followed by light dressings. The patient tolerated the procedure well without apparent complication. He was awakened in the operating room, extubated and moved to the recovery room in stable condition.
== END 2018-12-22 14:00 | disposition home or self-care (01) ==
LOC: M SDC 06:06
PROVIDERS: ATTEND Surgery
DX: K43.0 Incisional hernia with obstruction, without gangrene (principal); K66.0 Peritoneal adhesions (postprocedural) (postinfection); I48.91 Unspecified atrial fibrillation; I10 Essential (primary) hypertension; K44.9 Diaphragmatic hernia without obstruction or gangrene; D64.9 Anemia, unspecified; E21.3 Hyperparathyroidism, unspecified; F41.9 Anxiety disorder, unspecified; Z85.828 Personal history of other malignant neoplasm of skin; Z88.1 Allergy status to other antibiotic agents; Z88.8 Allergy status to other drugs, medicaments and biological substances; Z87.891 Personal history of nicotine dependence; Z94.0 Kidney transplant status; Z79.82 Long term (current) use of aspirin; Z79.899 Other long term (current) drug therapy; Z98.1 Arthrodesis status
CPT/HCPCS: 36415; 49329; 49655; 85610; 88302; C1781; C9290; J0690; J1100; J2250; J2370; J2405; J3010

== ENCOUNTER → 2019-01-19 | Outpatient (REF) | payer MEDICARE ==
[~2019-01-19] MED LIST changes: -/FENO48TA OR; -/PANT40TA OR; -/PANT40TA PO; -/PRAV20TA PO; -CINA30TA PO; +CINA30TA4 PO; +KONS100P4 PO; -LR 1,000 ML IV ONE; -METAPKT PO; +PRAV1TAB39 PO; +PROM-190 PO; -PROM25TA PO; +PROT1TAB2 OR; +PROT1TAB2 PO; -SODI1TA PO; +SODI1TAB12 PO; +TRIC1TAB OR
[2019-01-19 14:44] LABS: PROTHROMBIN TIME 19.8 SECONDS (12.1-14.4)
[2019-01-22 06:56] LABS: INR 1.65
== END ==
LOC: M LAB REF 13:37
PROVIDERS: ATTEND Internal Medicine Nephrology
DX: Z94.0 Kidney transplant status (principal); Z79.01 Long term (current) use of anticoagulants

== ENCOUNTER → 2019-02-20 | Outpatient (REF) | payer MEDICARE ==
[2019-02-20 13:58] LABS: INR 1.46; PROTHROMBIN TIME 17.9 SECONDS (12.1-14.4)
[2019-02-22 00:11] LABS: Lyme Disease IgG/IgM Antibodie <0.91 ISR (0.00-0.90); Lyme Disease IgM Ab Quantitati <0.80 index (0.00-0.79)
== END ==
LOC: M LAB REF 13:23
PROVIDERS: ATTEND Internal Medicine Nephrology
DX: Z94.0 Kidney transplant status (principal); A69.20 Lyme disease, unspecified; Z79.01 Long term (current) use of anticoagulants

== ENCOUNTER → 2019-02-20 | Outpatient (REF) | payer MEDICARE ==
[~2019-02-20] MED LIST changes: +COLA100C5 PO
[2019-02-20 20:00] LABS: BASO % 0.3 % (0.0-1.0); EOS % 0.6 % (0.0-3.0); HEMATOCRIT 43.3 % (42.0-52.0); HEMOGLOBIN 13.6 g/dl (13.5-17.5); LYMPH # 2.3 10^3/uL (1.5-4.5); LYMPH % 33.1 % (24.0-44.0); MEAN CORPUSCULAR HEMOGLOBIN 30.4 pg (27.0-33.0); MEAN CORPUSCULAR HGB CONC 31.4 g/dl (32.0-36.5); MEAN CORPUSCULAR VOLUME 96.7 fl (80.0-96.0); NEUTROPHILS # 3.6 10^3/uL (1.8-7.7); NEUTROPHILS % 51.2 % (36.0-66.0); PLATELET COUNT, AUTOMATED 230 10^3/uL (150-450); RED BLOOD COUNT 4.48 10^6/uL (4.30-6.10); WHITE BLOOD COUNT 7.1 10^3/uL (4.0-10.0)
== END ==
LOC: M LAB REF 17:12
PROVIDERS: ATTEND Internal Medicine Nephrology
DX: Z94.0 Kidney transplant status (principal)

== ENCOUNTER 2019-02-28 08:52 | Emergency (ER) | payer MEDICARE ==
[~2019-02-28] VITALS: Ht 172.7 cm; Wt 75.0 kg
[~2019-02-28 08:52] MED LIST changes: -COLA100C5 PO
[2019-02-28 10:47] LABS: BASO % 0.2 % (0.0-1.0); EOS % 0.2 % (0.0-3.0); HEMATOCRIT 41.8 % (42.0-52.0); HEMOGLOBIN 13.4 g/dl (13.5-17.5); LYMPH # 1.6 10^3/uL (1.5-4.5); MEAN CORPUSCULAR HEMOGLOBIN 29.7 pg (27.0-33.0); MEAN CORPUSCULAR HGB CONC 32.1 g/dl (32.0-36.5); MEAN CORPUSCULAR VOLUME 92.7 fl (80.0-96.0); MONO # 0.9 10^3/uL (0.0-0.8); MONO % 8.3 % (0.0-5.0); NEUTROPHILS # 7.6 10^3/uL (1.8-7.7); NEUTROPHILS % 74.1 % (36.0-66.0); PLATELET COUNT, AUTOMATED 203 10^3/uL (150-450); RED BLOOD COUNT 4.51 10^6/uL (4.30-6.10); WHITE BLOOD COUNT 10.2 10^3/uL (4.0-10.0)
--- NOTE | 2019-02-28 10:54 | REP ---
REASON FOR EXAM: Groin pain. COMPARISON: None. Ultrasonography of the inguinal region was obtained bilaterally. There is no bowel containing right inguinal hernia. On the left there is evidence of a bowel containing inguinal hernia which on this exam has no scrotal extension. IMPRESSION: Left side inguinal hernia as described above. Electronically Signed by Clint Bhatt DO 02/28/2019 01:51 P
[2019-02-28 11:13] LABS: ALBUMIN 3.5 GM/DL (3.2-5.2); ALT/SGPT 25 U/L (12-78); BILIRUBIN,DIRECT 0.1 MG/DL (0.0-0.2); BILIRUBIN,TOTAL 0.5 MG/DL (0.2-1.0); BLOOD UREA NITROGEN 10 MG/DL (7-18); CALCIUM LEVEL 9.7 MG/DL (8.8-10.2); CARBON DIOXIDE LEVEL 29 MEQ/L (21-32); CHLORIDE LEVEL 108 MEQ/L (98-107); CREATININE FOR GFR 0.77 MG/DL (0.70-1.30); GLOMERULAR FILTRATION RATE > 60.0 (>42); GLUCOSE, FASTING 124 MG/DL (70-100); LIPASE 43 U/L (73-393); POTASSIUM SERUM 4.2 MEQ/L (3.5-5.1); SODIUM LEVEL 144 MEQ/L (136-145); TOTAL PROTEIN 6.8 GM/DL (6.4-8.2)
[2019-02-28 12:46] VITALS: BP 167/87
--- NOTE | 2019-02-28 12:53 | REP ---
ABDOMEN, FLAT UPRIGHT PA CHEST, FOUR VIEWS: HISTORY: Rule out perforation. Air is present in small and large intestine. Several air fluid levels are present. There are no dilated loops of intestine. There is no pneumoperitoneum. There is elevation of the right hemidiaphragm. The lungs are clear. The patient is status post T6-T8 and T11-L2 posterior spinal fusion. Metal hardware is present. IMPRESSION: Nonspecific bowel gas pattern. Electronically Signed by Bandar Vu MD 02/28/2019 12:57 P
[2019-02-28] MEDS ORDERED: COLA100C5 PO (13:27)
--- NOTE | 2019-02-28 20:06 | ECGEPIP ---
[facility] - ED Test Date: 2019-02-28 Pat Name: ELDA JACOBSEN Department: Room: - Gender: Male [employer]: JT : 1945 Requested By: Mine Hawley Order Number: [id number] Reading MD: Mine Hawley Measurements Intervals [place] Rate: 66 P: [place]: -1 QRS: QRSD: 87 T: 34 QT: 382 QTc: 401 Interpretive Statements ATRIAL FIBRILLATION MARKED LEFT AXIS DEVIATION ANTEROSEPTAL MYOCARDIAL INFARCTION, OF INDETERMINATE AGE DECREASED RATE 12/20/18 Electronically Signed on 02-28-2019 20:06:18 EDT by Mine Hawley
== END 2019-02-28 13:36 | disposition home or self-care (01) ==
LOC: M ED 08:52
DX: K40.90 Unilateral inguinal hernia, without obstruction or gangrene, not specified as recurrent (principal); I11.0 Hypertensive heart disease with heart failure; I50.9 Heart failure, unspecified; I48.91 Unspecified atrial fibrillation; E78.5 Hyperlipidemia, unspecified; Z87.19 Personal history of other diseases of the digestive system; Z94.0 Kidney transplant status; Z79.899 Other long term (current) drug therapy; Z79.82 Long term (current) use of aspirin; Z79.01 Long term (current) use of anticoagulants; Z88.0 Allergy status to penicillin; Z88.1 Allergy status to other antibiotic agents; Z88.5 Allergy status to narcotic agent; Z88.8 Allergy status to other drugs, medicaments and biological substances

== ENCOUNTER 2019-03-06 12:16 | Emergency (ER) | payer MEDICARE ==
[~2019-03-06] VITALS: Ht 172.7 cm; Wt 74.5 kg
[~2019-03-06 12:16] MED LIST changes: +COLA100C5 PO
[2019-03-06 13:46] LABS: BASO % 0.5 % (0.0-1.0); EOS % 0.4 % (0.0-3.0); HEMATOCRIT 42.1 % (42.0-52.0); HEMOGLOBIN 13.6 g/dl (13.5-17.5); LYMPH # 2.2 10^3/uL (1.5-4.5); LYMPH % 26.7 % (24.0-44.0); MEAN CORPUSCULAR HEMOGLOBIN 30.4 pg (27.0-33.0); MEAN CORPUSCULAR HGB CONC 32.3 g/dl (32.0-36.5); MONO # 1.1 10^3/uL (0.0-0.8); MONO % 13.3 % (0.0-5.0); NEUTROPHILS # 4.6 10^3/uL (1.8-7.7); NEUTROPHILS % 55.6 % (36.0-66.0); PLATELET COUNT, AUTOMATED 211 10^3/uL (150-450); RED BLOOD COUNT 4.48 10^6/uL (4.30-6.10); WHITE BLOOD COUNT 8.3 10^3/uL (4.0-10.0)
[2019-03-06 14:08] LABS: BLOOD UREA NITROGEN 17 MG/DL (7-18); CARBON DIOXIDE LEVEL 31 MEQ/L (21-32); CHLORIDE LEVEL 105 MEQ/L (98-107); CREATININE FOR GFR 0.69 MG/DL (0.70-1.30); GLOMERULAR FILTRATION RATE > 60.0 (>42); GLUCOSE, FASTING 118 MG/DL (70-100); POTASSIUM SERUM 3.8 MEQ/L (3.5-5.1); SODIUM LEVEL 142 MEQ/L (136-145)
[2019-03-06] MEDS: GASTROGRAFIN SOLUTION 30ML PO SCH ×2 (14:08→14:54)
[2019-03-06 14:58] LABS: APPEARANCE, URINE HAZY (CLEAR); BACTERIA, URINE AUTO NEGATIVE (NEGATIVE); BILIRUBIN, URINE AUTO NEGATIVE (NEGATIVE); BLOOD, URINE BLOOD NEGATIVE (NEGATIVE); COLOR, URINE AMBER (YELLOW); GLUCOSE, URINE (UA) AUTO NEGATIVE (NEGATIVE); KETONE, URINE AUTO NEGATIVE (NEGATIVE); LEUKOCYTE ESTERASE, URINE AUTO NEGATIVE (NEGATIVE); MUCUS, URINE SMALL (NEGATIVE); NITRITE, URINE AUTO NEGATIVE (NEGATIVE); PROTEIN, URINE AUTO NEGATIVE (NEGATIVE); RBC, URINE AUTO 5 /HPF (0-3); SPECIFIC GRAVITY URINE AUTO 1.019 (1.002-1.035); SQUAMOUS EPITHELIAL CELL UR AU 0 /HPF (0-6); WBC, URINE AUTO 0 /HPF (0-3)
[2019-03-06] MEDS ORDERED: ISOVUE-370 76% 100ML VIAL (Q9967) As Ordered ONE (15:49)
--- NOTE | 2019-03-06 16:51 | REP ---
CT abdomen and pelvis with IV and oral contrast: History: Pain. Hernia became firm. Constipation. Comparison CT study October 16, 2018. CT contrast dose: 100 ml of intravenous Isovue 70. CT findings: Preliminary digital debt recovery officer radiograph demonstrates one or two dilated small bowel loops in the left central abdomen. Moderate colonic stool is present. Vascular calcification is noted. Thoracolumbar spine fusion hardware is seen. The lung bases remain essentially clear. Mild linear fibrosis is seen. No pleural effusion is noted. No focal hepatic or splenic lesion is seen. There is a small sliding-type hiatal hernia. No adrenal lesion is observed. The gallbladder is unremarkable. No pancreatic mass is seen. There is a small cyst in the body of the pancreas measuring 8 mm in greatest diameter. This it is unchanged from CT study dating back to July 02, 2016. The [place] kidneys are profoundly atrophic and the calcified. There is a transplant kidney in the right iliac fossa unchanged. There is a cyst within the transplanted kidney 3.2 cm in diameter. There is no evidence of hydronephrosis. The recently observed intrarenal calculi are again seen unchanged. A left inguinal hernia is again noted containing unobstructed loops of sigmoid colon. The patient is status post mesh repair of the ventral hernia. Above the mesh, there is a subcutaneous fluid collection consistent with an incarcerated epigastric hernia containing a loop of small bowel. This subcutaneous fluid collection is not opacified with orally administered contrast. It measures 7.3 cm by 3.0 cm by 4.3 cm. There is a some mural thickening and some edema around the hernia sac is seen. Previous CT studies have shown the bowel loops within this hernia sac. The proximal jejunal loops are dilated today. Distal ileal small bowel loops are not dilated but do contain relatively low density small amount of orally administered contrast. This mitigates against complete small bowel obstruction. No pelvic mass or adenopathy is observed. Urinary bladder prostate and seminal vesicles are unremarkable. There is extensive vascular calcification. Impression: The epigastric ventral hernia has changed its appearance. It contains a fluid filled structure presumably representing a partially obstructed small bowel loop with mild mural thickening and edema in the hernia wall. This suggests incarceration. Unobstructed left inguinal hernia containing sigmoid colon is again seen. Right iliac fossa transplant kidney contains a 3.2 cm cyst and two intrarenal calculi without hydronephrosis. Electronically Signed by Vadim Warner MD 03/06/2019 09:11 P
[2019-03-06] MEDS ORDERED: MORPHINE 2 MG/ML 1ML SYRINGE (J2270) IV ONE (17:00)
[2019-03-06] MEDS ORDERED: MIRA3350 PO (19:27)
--- NOTE | 2019-03-06 19:29 | CR.PDOC ---
General Surgery Consultation Date of Consultation 03/06/19 History and Physical CONSULT REPORT FOR: Emergency room provider REASON FOR CONSULTATION: HISTORY OF PRESENT ILLNESS: PAST MEDICAL HISTORY: 1. . PAST SURGICAL HISTORY: INCLUDES: 1. . PREVIOUS ANESTHESIA REACTIONS: ALLERGIES: Please see below. FAMILY HISTORY: . HOME MEDICATIONS: Please see below. REVIEW OF SYSTEMS: GENERAL: [Denies chills, reports weight gain, reports feeling febrile yesterday]. HEENT: [Denies blurred vision and double vision. Denies ear symptoms. Denies hoarseness]. NECK: Denies any neck pain]. CARDIOVASCULAR: [Denies chest pain and palpitations]. MUSCULOSKELETAL: [Denies arthralgias, back pain and thrombophlebitis]. SKIN: [Denies rash]. NEUROLOGIC: [Denies headache, stroke and transient ischemic attack]. PSYCHIATRIC: [Denies anxiety and depression]. ENDOCRINE: [Denies thyroid disease]. HEMATOLOGY/ONCOLOGY: [Denies bleeding or clotting disorder]. HEART: [Denies any chest pains, palpitations, paroxysmal dyspnea, orthopnea]. PULMONARY: [Denies chronic cough, dyspnea and wheezing]. GASTROINTESTINAL: [Denies rectal bleeding, family history of colon cancer, constipation, diarrhea, dysphagia, heartburn and jaundice]. GENITOURINARY: [Denies dysuria, frequency, hematuria and nocturia]. ENDOCRINE: [Denies polydipsia, polyphagia, polyuria, heat or cold intolerance]. INFECTIOUS: [Denies any recent upper respiratory tract infection, UTI, need for use of antibiotics]. NUTRITION: [Reports good appetite]. PHYSICAL EXAMINATION: VITALS SIGNS: Please see below. GENERAL APPEARANCE:[Patient seen, laying in bed, awake, alert, and oriented. Comfortable, in no acute distress]. SKIN: [Warm and moist]. HEENT: [Normocephalic, atraumatic. [place] palpebral conjunctiva, anicteric sclerae. Lips and mucosa appear moist]. NECK: [Supple, no thyromegaly. No obvious jugular venous distention]. LUNGS: [Clear to auscultation bilaterally. No wheezing appreciated]. HEART: [No chest wall abnormalities. Regular rate and rhythm with no murmurs appreciated]. ABDOMEN: Abdomen is , soft, . [No hepatosplenomegaly. No umbilical or groin herniations, nondistended. No noticeable rebound or guarding. No grimacing with palpation. No rebound tenderness. No masses appreciated]. EXTREMITIES: [Extremities have no deformities. No edema identified] ANCILLARIES: . LABORATORY DATA: Please see below. IMAGING STUDIES: CT scan abdomen and pelvis The epigastric ventral hernia has changed its appearance. It contains a fluid filled structure presumably representing a partially obstructed small bowel loop with mild mural thickening and edema in the hernia wall. This suggests incarceration. Unobstructed left inguinal hernia containing sigmoid colon is again seen. Right iliac fossa transplant kidney contains a 3.2 cm cyst and two intrarenal calculi without hydronephrosis. IMPRESSION AND PLAN: Postoperative hematoma Intact ventral hernia repair Left inguinal hernia Constipation The fluid collection observed on the CT scan I don't think is a loop of bowel. The CAT scan that were compared span the. Before the surgery and after the surgery. Patient had laparoscopic repair of his incisional hernia on December [address] Gamble. So the fluid on the CT scan today that was not present on the prior CT was a result of postoperative changes from the prior incisional hernia repair. I aspirated the contents and got about 20 mL's of thick brownish hematin containing fluid consistent with utilizing hematoma. This does not look infected. I reassured him that his previous hernia repair seems to be still intact. He does have a fairly large left inguinal hernia that he is not symptomatic with that this is containing a loop of colon. He has scheduled appointment with Dr. Gamble on March 19. I instructed them to keep this appointment and discuss both the hematoma as well as the inguinal hernia and whether he is willing to have it repaired. Patient's main complaint of abdominal cramping is mostly related to his constipation for which she took MiraLAX yesterday and today. He has had a bowel movement early this morning and reports feeling mildly better. He was concerned about the protrusion that it was not going down in prior lid instructed to go to the emergency room if the protrusion in his epigastrium does not come down for fear of incarceration. Vital Signs Vital Signs Date Time Temp Pulse Resp B/P (MAP) Pulse Ox O2 Delivery O2 Flow Rate FiO2 03/06/19 17:10 17 98 03/06/19 16:55 97.3 70 131/75 (93) Room Air Laboratory Data Labs 24H Laboratory Tests 2 03/06/19 13:30: Immature Granulocyte % (Auto) 3.5H, White Blood Count 8.3, Red Blood Count 4.48, Hemoglobin 13.6, Hematocrit 42.1, Mean Corpuscular Volume 94.0, Mean Corpuscular Hemoglobin 30.4, Mean Corpuscular Hemoglobin Concent 32.3, Red Cell Distribution Width 13.7, Platelet Count 211, Neutrophils (%) (Auto) 55.6, Lymphocytes (%) (Auto) 26.7, Monocytes (%) (Auto) 13.3H, Eosinophils (%) (Auto) 0.4, Basophils (%) (Auto) 0.5, Neutrophils # (Auto) 4.6, Lymphocytes # (Auto) 2.2, Monocytes # (Auto) 1.1H, Eosinophils # (Auto) 0.0, Basophils # (Auto) 0.0, Nucleated Red Blood Cells % (auto) 0.0, Anion Gap 6L, Glomerular Filtration Rate > 60.0, Blood Urea Nitrogen 17, Creatinine 0.69L, Sodium Level 142, Potassium Level 3.8, Chloride Level 105, Carbon Dioxide Level 31, Calcium Level 10.0 03/06/19 14:02: Urine Appearance HAZY, Urine Color SANDEEP, Urine pH 6.0, Urine Specific [place] 1.019, Urine Protein NEGATIVE, Urine Glucose (UA) NEGATIVE, Urine Ketones NEGATIVE, Urine Urobilinogen 4.0H, Urine Bilirubin NEGATIVE, Urine Leukocyte Esterase NEGATIVE, Urine Blood NEGATIVE, Urine Nitrite NEGATIVE, Urine WBC (Auto) 0, Urine RBC (Auto) 5H, Urine Hyaline Casts (Auto) 0, Urine Bacteria (Auto) NEGATIVE, Urine Squamous Epithelial Cells 0, Urine Mucus (Auto) SMALL, Urine Sperm (Auto) CBC/BMP Laboratory Tests 03/06/19 13:30 Red Blood Count 4.48, Mean Corpuscular Volume 94.0, Mean Corpuscular Hemoglobin 30.4, Mean Corpuscular Hemoglobin Concent 32.3, Red Cell Distribution Width 13.7, Neutrophils (%) (Auto) 55.6, Lymphocytes (%) (Auto) 26.7, Monocytes (%) (Auto) 13.3 H, Eosinophils (%) (Auto) 0.4, Basophils (%) (Auto) 0.5, Neutrophils # (Auto) 4.6, Lymphocytes # (Auto) 2.2, Monocytes # (Auto) 1.1 H, Eosinophils # (Auto) 0.0, Basophils # (Auto) 0.0, Calcium Level 10.0 Home Medications Scheduled Amiloride HCl (Amiloride HCl) 2.5 Mg Tab, 5 MG PO DAILY, (Reported) Aspirin (Aspir 81) 81 Mg Tab, 81 MG PO DAILY, (Reported) Azathioprine (Azathioprine) 50 Mg Tab, 100 MG PO DAILY, (Reported) Calcitriol (Calcitriol) 0.25 Mcg Cap, 0.25 MCG PO 3XW, (Reported) tue-tue-tue Cinacalcet (Sensipar) 30 Mg Tab, 30 MG PO QWEEK, (Reported) saturdays Docusate Sodium (Colace) 100 Mg Capsule, 1 CAP PO BID Gabapentin (Gabapentin) 300 Mg Cap, 600 MG PO TID, (Reported) Magnesium Amino Acid Chelate (Magnesium) 500 Mg Tab, 3,000 MG PO BID, (Reported) Metoprolol Tartrate (Metoprolol Tartrate) 50 Mg Tab, 50 MG PO DAILY, (Reported) Potassium Chloride (Potassium Chloride) 10 Meq Tab, 10 MEQ PO DAILY, (Reported) Prednisone (Prednisone) 5 Mg Tab, 5 MG PO DAILY, (Reported) Ranitidine HCl (Ranitidine HCl) 150 Mg Tab, 1 TAB PO DAILYPRN, (Reported) Sirolimus (Rapamune) 1 Mg Tab, 3 MG PO DAILY, (Reported) Sod Phos Di, Deuel/K Phos Deuel (Virt-Phos 250 Neutral Tablet) 1 Tab Tab, 2 TAB PO BID, (Reported) Torsemide (Torsemide) 20 Mg Tab, 20 MG PO DAILY, (Reported) Vitamin B Complex Vit C No.3 (B Complex with Vitamin C) 1 Cap Cap, 1 CAP PO DAILY, (Reported) Warfarin Sodium (Warfarin Sodium) 2.5 Mg Tab, 2.5 MG PO DAILY, (Reported) Scheduled PRN Cyclobenzaprine HCl (Cyclobenzaprine HCl) 10 Mg Tab, 10 MG PO TID PRN for MUSCLE SPASMS, (Reported) Diazepam (Diazepam) 2 Mg Tab, 2 MG PO TIDP PRN for ANXIETY, (Reported) Hydroxyzine HCl (Hydroxyzine HCl) 25 Mg Tab, 25 MG PO BIDP PRN for ANXIETY, (Reported) MAY TAKE A THIRD DOSE IF NEEDED Ondansetron HCl (Ondansetron HCl) 4 Mg Tab, 4 MG PO Q6H PRN for NAUSEA, (Reported) Oxycodone/Acetaminophen (Oxycodone-Acetaminophen 5-325) 1 Tab Tab, 1 TAB PO Q6HP PRN for PAIN, (Reported) Allergies Coded Allergies: ciprofloxacin (Verified Allergy, Unknown, 12/20/18) amoxicillin (Verified Adverse Reaction, Intermediate, can take few prior to dentist but can not take for 10 days, 12/20/18) pregabalin (Verified Adverse Reaction, Intermediate, UNKNOWN, 12/20/18) tizanidine (Verified Adverse Reaction, Intermediate, 12/20/18) Quinolones (Verified Adverse Reaction, Mild, ANXIETY, 12/20/18) cefuroxime (Verified Adverse Reaction, Mild, ANXIETY, 12/20/18) codeine (Verified Adverse Reaction, Mild, AGITATION, 12/20/18) lorazepam (Verified Adverse Reaction, Mild, AGITATION, 12/20/18) XOCHILT PATEL MD Mar 06, 2019 19:29
[2019-03-06 19:33] VITALS: BP 130/76
--- NOTE | 2019-03-07 14:08 | ED PDOC ---
Post-Departure Follow-Up bruna eaton and nancy faxed formal report of ct abd/p for fu Candy Elizondo MD Mar 07, 2019 14:08
== END 2019-03-06 19:40 | disposition home or self-care (01) ==
LOC: M ED 12:16
DX: L76.32 Postprocedural hematoma of skin and subcutaneous tissue following other procedure (principal); K43.6 Other and unspecified ventral hernia with obstruction, without gangrene; K40.90 Unilateral inguinal hernia, without obstruction or gangrene, not specified as recurrent; K59.00 Constipation, unspecified; N28.1 Cyst of kidney, acquired; N20.0 Calculus of kidney; Z94.0 Kidney transplant status; I11.0 Hypertensive heart disease with heart failure; I50.9 Heart failure, unspecified; E78.5 Hyperlipidemia, unspecified; M54.9 Dorsalgia, unspecified; M51.9 Unspecified thoracic, thoracolumbar and lumbosacral intervertebral disc disorder; Z87.442 Personal history of urinary calculi; Z98.1 Arthrodesis status; Z87.891 Personal history of nicotine dependence; Z88.1 Allergy status to other antibiotic agents; Z88.0 Allergy status to penicillin; Z88.8 Allergy status to other drugs, medicaments and biological substances; Z88.5 Allergy status to narcotic agent; Z79.899 Other long term (current) drug therapy; Z79.82 Long term (current) use of aspirin; Z79.52 Long term (current) use of systemic steroids; Z79.01 Long term (current) use of anticoagulants
CPT/HCPCS: 10160; 74177; 80048; 81001; 85025; 96374; 99284; J2270; Q9963; Q9967

== ENCOUNTER → 2019-03-23 | Outpatient (REF) | payer MEDICARE ==
[~2019-03-23] MED LIST changes: +MIRA3350 PO
[2019-03-23 13:12] LABS: INR 2.24; PROTHROMBIN TIME 24.6 SECONDS (11.8-14.0)
== END ==
LOC: M LAB REF 12:40
PROVIDERS: ATTEND Internal Medicine Nephrology
DX: Z94.0 Kidney transplant status (principal); Z79.01 Long term (current) use of anticoagulants

== ENCOUNTER → 2019-04-23 | Outpatient (REF) | payer MEDICARE ==
[2019-04-23 13:56] LABS: INR 2.11; PROTHROMBIN TIME 23.4 SECONDS (11.8-14.0)
== END ==
LOC: M LAB REF 12:59
PROVIDERS: ATTEND Internal Medicine Nephrology
DX: Z94.0 Kidney transplant status (principal); Z79.01 Long term (current) use of anticoagulants

== ENCOUNTER 2019-05-14 13:11 | Emergency (ER) | payer MEDICARE ==
[~2019-05-14] VITALS: Ht 172.7 cm; Wt 75.5 kg
[2019-05-14] MEDS ORDERED: MORPHINE 4 MG/ML 1ML VIAL/SYRINGE (J2270) IV ONE ×3 (16:30→23:15)
[2019-05-14] MEDS ORDERED: ACETAMINOPHEN 500 MG TAB PO ONE (16:30)
[2019-05-14] MEDS ORDERED: LIDOCAINE 5% (LIDODERM) PATCH TD ONE ×2 (16:45→17:30)
[2019-05-14] MEDS ORDERED: diazePAM 5 MG TAB PO ONE ×2 (16:45→17:30)
[2019-05-14] MEDS ORDERED: AMIL25TA PO (16:46)
[2019-05-14] MEDS ORDERED: MAGN500T6 PO (16:51)
[2019-05-14 17:09] LABS: BASO % 0.2 % (0.0-1.0); EOS % 0.1 % (0.0-3.0); HEMATOCRIT 41.9 % (42.0-52.0); HEMOGLOBIN 13.8 g/dl (13.5-17.5); LYMPH # 1.6 10^3/uL (1.5-4.5); LYMPH % 16.4 % (24.0-44.0); MEAN CORPUSCULAR HEMOGLOBIN 30.5 pg (27.0-33.0); MEAN CORPUSCULAR HGB CONC 32.9 g/dl (32.0-36.5); MEAN CORPUSCULAR VOLUME 92.5 fl (80.0-96.0); MONO # 0.5 10^3/uL (0.0-0.8); MONO % 5.7 % (0.0-5.0); NEUTROPHILS # 7.3 10^3/uL (1.8-7.7); NEUTROPHILS % 76.3 % (36.0-66.0); PLATELET COUNT, AUTOMATED 197 10^3/uL (150-450); RED BLOOD COUNT 4.53 10^6/uL (4.30-6.10); WHITE BLOOD COUNT 9.5 10^3/uL (4.0-10.0)
--- NOTE | 2019-05-14 17:45 | REPVR ---
EXAM: CT Abdomen and Pelvis Without Contrast EXAM DATE/TIME: 05/14/2019 5:11 PM CLINICAL HISTORY: 74 years old, male; Constipation; Additional info: HX mult hernias, ? inc no bm x5 days, eval for constipation, TECHNIQUE: Imaging protocol: Axial computed tomography images of the abdomen and pelvis without contrast. Coronal and sagittal reformatted images were created and reviewed. Radiation optimization: All CT scans at this facility use at least one of these dose optimization techniques: automated exposure control; mA and/or kV adjustment per patient size (includes targeted exams where dose is matched to clinical indication); or iterative reconstruction. COMPARISON: CT ABD/PEL W/IV ORAL CONTRAS 03/06/2019 3:45 PM FINDINGS: Liver: Unremarkable. No mass. Gallbladder and bile ducts: Normal. No calcified stones. No ductal dilation. Pancreas: The cyst, measuring 7 mm within the tail of the pancreas seen on the prior examination is poorly visualized on today's study secondary to artifact from spinal instrumentation. No ductal dilation. Spleen: Unremarkable. No splenomegaly. Adrenals: Normal. No mass. Kidneys and ureters: Both nonfunctioning [place] kidneys, which are atrophied and calcified, are unchanged. A right pelvic renal transplant is present. Mild hazy density surrounding the right renal pelvis and ureter is unchanged. No hydronephrosis is present. There are right renal cysts and stones, which are unchanged. Stomach and bowel: Small gastric hiatus hernia. The stomach is otherwise unremarkable. Left inguinal hernia containing a segment of sigmoid colon without bowel obstruction is unchanged. There is a moderate fecal load within the transverse, descending, and sigmoid colon. Appendix: No evidence of appendicitis. Intraperitoneal space: No free air. No significant fluid collection. Vasculature: Severe atherosclerosis of the abdominal aorta and branch vessels is noted. No aneurysm is present. Lymph nodes: No enlarged lymph nodes. Bladder: Unremarkable as visualized. Reproductive: Unremarkable as visualized. Bones/joints: Old fracture deformities of T12 and L1 and posterior spinal fusion with gilmar instrumentation and pedicle screws extending from T11-L2 is unchanged. No acute fracture is seen. Soft tissues: The patient is status post repair of anterior abdominal wall hernia with mesh. There is a low-density collection measuring 6.5 cm transverse by 2.6 cm AP by 3.6 cm long within the subcutaneous tissues at the site of hernia repair consistent with postoperative collection. This has decreased slightly in size since the prior examination at which time it measured approximately 7.3 cm transverse by 3.0 cm AP by 4.3 cm long. IMPRESSION: 1. Moderate fecal load within the transverse, descending, and sigmoid colon. 2. Left inguinal hernia containing a segment of sigmoid colon without bowel obstruction. 3. Right renal transplant with renal stones and cysts, unchanged. Mild hazy density surrounding the right renal pelvis and ureter is unchanged. 4. Severe atherosclerosis of the abdominal aorta and iliac arteries without aneurysm. 5. Status post anterior abdominal wall hernia repair with postoperative collection within the subcutaneous tissues at the operative site, slightly decreased in size compared to the prior exam. COMMENT: Consistent with the [employer]'s Incidental Findings Committee Report (J Am Myrna Radiol 2010): Unless the patient's specific circumstances suggest otherwise, any liver lesion 0.5 cm or less, any cystic kidney lesion less than 1.0 cm, and/or any adrenal lesion 1.0 cm or less not otherwise characterized in this report as possessing suspicious or indeterminate imaging features is/are highly likely to be benign and do not require follow-up imaging or biopsy. Electronically signed by: Oscar Dillard On 05/14/2019 17:45:09 PM
[2019-05-14 17:46] LABS: ALBUMIN 3.5 GM/DL (3.2-5.2); ALT/SGPT 24 U/L (12-78); BILIRUBIN,DIRECT < 0.1 MG/DL (0.0-0.2); BILIRUBIN,TOTAL 0.4 MG/DL (0.2-1.0); BLOOD UREA NITROGEN 16 MG/DL (7-18); CALCIUM LEVEL 10.3 MG/DL (8.8-10.2); CARBON DIOXIDE LEVEL 34 MEQ/L (21-32); CHLORIDE LEVEL 102 MEQ/L (98-107); CK-MB VALUE MASS < 1.0 NG/ML (<3.6); CPK CREATINE PHOSPHOKINASE 54 U/L (39-308); CREATININE FOR GFR 0.78 MG/DL (0.70-1.30); GLOMERULAR FILTRATION RATE > 60.0 (>42); GLUCOSE, FASTING 127 MG/DL (70-100); MB/CK RELATIVE INDEX 1.85 (< OR =4); POTASSIUM SERUM 4.4 MEQ/L (3.5-5.1); SODIUM LEVEL 140 MEQ/L (136-145); THYROID STIMULATING HORMONE 0.555 uIU/ML (0.358-3.740); TOTAL PROTEIN 6.8 GM/DL (6.4-8.2); TROPONIN I < 0.02 NG/ML (< 0.10)
[2019-05-14] MEDS ORDERED: **NOTE PATIENT COMMENT** MISC XX SCH (21:00)
--- NOTE | 2019-05-14 22:58 | REPVR ---
EXAM: MR Lumbar Spine Without Contrast. EXAM DATE/TIME: 05/14/2019 9:47 PM CLINICAL HISTORY: 74 years old, male; Lumbago with sciatica and weakness; Bilateral; Prior surgery; Surgery date: 6+ months; Surgery type: Fusion both upper lspine and tspine; Additional info: Eval for cauda equina, rle weakness, constipation TECHNIQUE: Imaging protocol: Multiplanar magnetic resonance images of the lumbar spine without intravenous contrast. COMPARISON: MRI-Spine, L.S. without con 11/29/2018 9:32 AM FINDINGS: Vertebrae: Normal alignment. Status post interbody fusion of T11-L2. Regional anatomy obscured by extensive magnetic susceptibility artifact. Interval development of a sclerotic focus in the L4 vertebral body with loss of vertebral height. Findings worrisome for sclerotic metastasis versus interval vertebral collapse and sclerosis. Spinal cord: Normal signal. No cord compression. L1-L2: Examination of L1-L2 obscured by magnetic susceptibility artifact L2-L3: There is a moderate asymmetric left greater than right spinal stenosis at L2-L3 secondary to diffuse annular bulging, thickened ligamentum flavum and facet joint arthropathy. No lateral recess stenosis moderate foraminal stenosis on the left. L3-L4: There is a moderate central spinal stenosis at L3-L4 secondary to diffuse annular bulging, thickened ligamentum flavum and facet joint arthropathy. No lateral recess stenosis mild foraminal stenosis on the right and moderate foraminal stenosis on the left. L4-L5: There is a severe asymmetric right greater than left central spinal stenosis at L4-L5 secondary to diffuse annular bulging, thickened ligamentum flavum and facet joint arthropathy. Mild lateral recess stenosis on the right. Severe foraminal stenosis on the right and moderate foraminal stenosis on the left. L5-S1: Diffuse bulging annulus at L5-S1 with small central disc protrusion without evidence of a spinal stenosis or neural compromise. Moderate to severe bilateral facet joint arthropathy. No lateral recess stenosis. Mild bilateral foraminal stenosis. Other bones/joints: Mottling of the marrow space signal on T1-weighted imaging suggest changes related to chronic anemia or other myeloproliferative abnormality. Soft tissues: Unremarkable. IMPRESSION: 1. Interval development of a sclerotic focus in the L4 vertebral body with loss of vertebral height. Findings worrisome for sclerotic metastasis versus interval vertebral collapse and sclerosis. 2. Mottling of the marrow space signal on T1-weighted imaging suggest changes related to chronic anemia or other myeloproliferative abnormality. 3. Moderate spinal stenosis at L2-L3, moderate central spinal stenosis at L3-L4, severe spinal stenosis at L4-L5. 4. Bulging annulus and small central disc protrusion without neural compromise at L5-S1. Electronically signed by: Altaf Crawford On 05/14/2019 22:58:08 PM
--- NOTE | 2019-05-14 23:03 | REPVR ---
EXAM: MR Thoracic Spine Without Contrast EXAM DATE/TIME: 05/14/2019 9:47 PM CLINICAL HISTORY: 74 years old, male; Pain in thoracic spine; With radiculopathy; Bilateral; Prior surgery; Surgery date: 6+ months; Surgery type: Fusion both upper lspine and tspine; Additional info: Pain S/P fall, rle weakness, constipation TECHNIQUE: Imaging protocol: Multiplanar magnetic resonance images of the thoracic spine without contrast. COMPARISON: MRI-Spine,Thoracic without con 11/15/2014 12:35 PM FINDINGS: Vertebrae: Status post posterior interbody fusion and T6-T8 and T11 and T12. Extensive magnetic susceptibility artifact limits visualization of the regional anatomy. Marrow: Model and diffusely decreased signal in the vertebral marrow space may indicate an underlying chronic anemia or myeloproliferative disorder. Spinal cord: Normal signal. No cord compression. Discs/Spinal canal/Neural foramina: Mild loss of disc height at all levels. Soft tissues: Unremarkable. IMPRESSION: 1. Model and diffusely decreased signal in the vertebral marrow space may indicate an underlying chronic anemia or myeloproliferative disorder. 2. No cord impingement or cord abnormality. 3. No significant disc disease. Limited evaluation of the fused portions of the thoracic spine as described above. Electronically signed by: Altaf Crawford On 05/14/2019 23:03:22 PM
--- NOTE | 2019-05-14 23:12 | REPVR ---
EXAM: MR Cervical Spine Without Contrast EXAM DATE/TIME: 05/14/2019 10:08 PM CLINICAL HISTORY: 74 years old, male; Radiculopathy and weakness; Cervicothoracic region; Prior surgery; Surgery date: 6+ months; Surgery type: Cervical fusion; Additional info: Prev discectomy/fusion, pain, weakness, recent falls TECHNIQUE: Imaging protocol: Multiplanar magnetic resonance images of the cervical spine without intravenous contrast. COMPARISON: MRI-Spine,Cervical without con 03/21/2015 11:59 AM FINDINGS: Vertebrae: Status post anterior interbody fusion of C3-C7. Magnetic susceptibility artifact limits visualization of regional anatomy. Anterior compression deformity/destructive focus anterior aspect of T1. Marrow: No marrow edema demonstrated. Sclerotic foci demonstrated in T1 and T2, may represent sclerotic metastases. Spinal cord: Mild cord impingement at C7-T1. Discs/Spinal canal/Neural foramina: No significant disc disease. No significant spinal stenosis. Neural foramina largely obscured throughout the cervical spine. Vasculature: Expected flow voids in the vertebral arteries. Soft tissues: Marked soft tissue hypertrophy and thickening of the transverse ligament measuring 1.5 cm in maximum anterior posterior diameter is resulting in mild to moderate cord impingement at C1-C2. No acute edema on STIR weighted imaging demonstrated to suggest acute inflammation or infection consistent with chronic findings grossly stable in comparison to the 2015 examination. IMPRESSION: 1. Marked soft tissue hypertrophy and thickening of the transverse ligament measuring 1.5 cm in maximum anterior posterior diameter is resulting in mild to moderate cord impingement at C1-C2. No acute edema on STIR weighted imaging demonstrated to suggest acute inflammation or infection consistent with chronic findings grossly stable in comparison to the 2015 examination. 2. Sclerotic foci of T1 and T2 may represent blastic metastatic disease. 3. Mild cord impingement at C7-T1. 4. Marked wedge compression deformity/destructive focus anterior aspect of T1. Electronically signed by: Altaf Crawford On 05/14/2019 23:12:06 PM
[2019-05-14] MEDS ORDERED: PERCOCET 5MG/325MG TAB PO ONE (23:45)
--- NOTE | 2019-05-15 02:37 | CR.PDOC ---
General Date of Consultation: May 15, 2019 Referring Provider: A Primary Care Physician: ZOFIA ALCANTAR MD @ Attending Physician: CATHERINE JAMES Consultation TIME OF SERVICE: 12:30 AM CHIEF COMPLAINT: Near fall HISTORY OF PRESENT ILLNESS: This is a 74-year-old male with a history of chronic back pain and osteoporosis. He has had multiple back and neck surgeries done by Dr. Mccartney in [place]. Prior to the procedures he was evaluated by Dr. Rosales here in [facility], and other orthopedic surgeons in [facility]; he reports that they all did not feel comfortable doing surgery on him. Eventually he was referred to Dr. Mccartney in [place]. Recently he has been experiencing acute worsening of his chronic lower back pain and falls, which he attributes to legs going out from right underneath him. On he went to the hospital in [place], had a CT done reports being told that "everything was okay" and had a follow-up appointment Dr. Mccartney scheduled in In the last 3 days he has had 2 falls. Yesterday evening he presented to the hospital after nearly having a fall. On his way out of his house as he was walking down the steps he lost his balance and almost fell, but caught the banister. As a result of grabbing the banister developed arm pain. He called Dr. Mccartney's nurse who told him to go to the nearest ER. At his baseline he is able to walk 1-1.5 miles with a walker. Currently, he can only walk a few steps. He denies having fevers, chills, and urinary or fecal incontinece. He has lost some weight but is unable to quantify how much amount. He reports having a poor appetite and has not eaten in 2 days. The patient denied knowledge of multiple sclerotic lesions in his vertebrae that may represent malignancy prior to today. Per discussion with ED provider Catherine Aranda the patient did not have any urinary symptoms, fevers or chills. During her exam he could not lift his right leg off of the examination table. MRI showed multiple lesions and L4 mass and T1 fracture. These findings were discussed with the orthopedic surgeon on-call, who did not recommend steroids at this time. After my d/w she recommended that the patient be transferred to either [facility] or back to [place] where he can see his information management specialist. 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 Insomnia/anxiety Chronic back pain and with kyphosis status post back surgeries Unsteady gait, walks with a walker Cervical myelopathy status post cervical fusion and hardware placement History of Chronic hypomagnesemia and hypophosphatemia. Dyslipidemia History of nephrolithiasis Status post right heel ORIF Status post abdominal hernia repair SOCIAL HISTORY: Quit smoking 5 years ago. FAMILY HISTORY: Congestive heart failure ALLERGIES: Please see below. HOME MEDICATIONS: Please see below. PHYSICAL EXAMINATION: VITAL SIGNS: Please see below. GENERAL APPEARANCE: Well-nourished, well-developed, not in apparent distress HEENT: Wearing a c-collar around his neck, extra ocular movements intact, mucous members moist and pink CARDIOVASCULAR: Regular rate and rhythm. No murmurs, rubs or gallops LUNGS: clear auscultation bilaterally on room air MUSCULOSKELETAL: Range of motion intact in all 4 extremities, the patient has difficulty sitting up on his own and it takes a considerable amount of time for him to turn from his back onto his side and push himself to sit up. INTEGUMENT: Dorsal surface of hands and lower arms has purpura NEUROLOGICAL: Cranial nerves II-12 are grossly intact, positive Gonzalez sign bilaterally, deep tendon reflexes 3+ at both biceps, brachioradialis and both patellar tendons, there is no clonus bilaterally, strength 5 out at all extremities (the patient reports he was previously not able to lift his right leg off of the examination table, but this has improved )PSYCHIATRIC: LABORATORY DATA: See below. IMAGING: MRI cervical spine "IMPRESSION: 1. Marked soft tissue hypertrophy and thickening of the transverse ligament measuring 1.5 cm in maximum anterior posterior diameter is resulting in mild to moderate cord impingement at C1-C2. No acute edema on STIR weighted imaging demonstrated to suggest acute inflammation or infection consistent with chronic findings grossly stable in comparison to the 2015 examination. 2. Sclerotic foci of T1 and T2 may represent blastic metastatic disease. 3. Mild cord impingement at C7-T1. 4. Marked wedge compression deformity/destructive focus anterior aspect of T1. " MRI of the thoracic spine "IMPRESSION: 1. Model and diffusely decreased signal in the vertebral marrow space may indicate an underlying chronic anemia or myeloproliferative disorder. 2. No cord impingement or cord abnormality. 3. No significant disc disease. Limited evaluation of the fused portions of the thoracic spine as described above. " MRI of the lumbar spine "IMPRESSION: 1. Interval development of a sclerotic focus in the L4 vertebral body with loss of vertebral height. Findings worrisome for sclerotic metastasis versus interval vertebral collapse and sclerosis. 2. Mottling of the marrow space signal on T1-weighted imaging suggest changes re lated to chronic anemia or other myeloproliferative abnormality. 3. Moderate spinal stenosis at L2-L3, moderate central spinal stenosis at L3-L4, severe spinal stenosis at L4-L5. 4. Bulging annulus and small central disc protrusion without neural compromise at L5-S1." ASSESSMENT: Mr. Kwon is a 74-year-old male with a past medical history of ESRD, status post kidney transplant, secondary hyperparathyroidism, iron deficiency anemia, renal osteodystrophy, chronic hypertension, chronic left right imbalances, depression and anxiety who presented with complaints of acute on chronic back pa in, frequent falls, and worsening right lower extremity weakness. Per discussion with Dr. Bailon . This patient with acute worsening of his back pain and multiple sclerotic lesions on his MRI concerning for malignancy would best be served at a center with a information management specialist preferably at the center where the patient's surgeries were surgeon. PLAN: 1. Acute on chronic lower back pain and RLE weakness Acute back pain is possibly 2/2 sclerotic lesions, and L4 sclerotic lesion The patient also reports having a history of renal osteodystrophy, but denies a prior history of lesions in his spine that may represent a malignancy. Plan: Per discussion with Dr. Bailon this patient with a history of multiple spine surgeries, and osteoporosis should be transferred to another facility such as [facility] or preferably [place] 2. 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 The patient has been falling up with Dr. Alcantar, but has not seen his transplant specialist in over 3 years. Plan: The patient will need to follow up with his transplant specialist as well in the near future. He is is at risk for several malignancies, especially squamous cell cancer. Vital Signs/I&O Vital Signs Date Time Temp Pulse Resp B/P (MAP) Pulse Ox O2 Delivery O2 Flow Rate FiO2 05/15/19 02:30 18 99 05/15/19 02:12 87 05/15/19 02:00 138/84 (102) 05/14/19 23:49 98.4 05/14/19 13:13 Room Air Laboratory Data Labs 24H Laboratory Tests 2 05/14/19 16:07: Immature Granulocyte % (Auto) 1.3, White Blood Count 9.5, Red Blood Count 4.53, Hemoglobin 13.8, Hematocrit 41.9L, Mean Corpuscular Volume 92.5, Mean Corpuscular Hemoglobin 30.5, Mean Corpuscular Hemoglobin Concent 32.9, Red Cell Distribution Width 13.2, Platelet Count 197, Neutrophils (%) (Auto) 76.3H, Lymphocytes (%) (Auto) 16.4L, Monocytes (%) (Auto) 5.7H, Eosinophils (%) (Auto) 0.1, Basophils (%) (Auto) 0.2, Neutrophils # (Auto) 7.3, Lymphocytes # (Auto) 1.6, Monocytes # (Auto) 0.5, Eosinophils # (Auto) 0.0, Basophils # (Auto) 0.0, Nucleated Red Blood Cells % (auto) 0.0, Urine Color SANDEEP, Urine Appearance HAZY, Urine pH 6.0, Urine Specific Austin 1.009, Urine Protein NEGATIVE, Urine Glucose (UA) NEGATIVE, Urine Ketones NEGATIVE, Urine Blood NEGATIVE, Urine Nitrite NEGATIVE, Urine Bilirubin NEGATIVE, Urine Urobilinogen 0.2, Urine Leukocyte Esterase NEGATIVE, Urine WBC (Auto) 1, Urine RBC (Auto) 5H, Urine Hyaline Casts (Auto) 0, Urine Bacteria (Auto) NEGATIVE, Urine Squamous Epithelia l Cells 0, Urine Sperm (Auto) , Anion Gap 4L, Glomerular Filtration Rate > 60.0, Calcium Level 10.3H, Aspartate Amino Transf (AST/SGOT) 22, Alanine Aminotransferase (ALT/SGPT) 24, Alkaline Phosphatase 118H, Total Bilirubin 0.4, Direct Bilirubin < 0.1, Total Creatine Kinase 54, Creatine Kinase MB < 1.0, Creatine Kinase MB Relative Index 1.85, Troponin I < 0.02, Total Protein 6.8, Albumin 3.5, Albumin/Globulin Ratio 1.06, Thyroid Stimulating Hormone (TSH) 0.555 05/14/19 18:29: Lactic Acid Level 0.6 CBC/BMP Laboratory Tests 05/14/19 16:07 Red Blood Count 4.53, Mean Corpuscular Volume 92.5, Mean Corpuscular Hemoglobin 30.5, Mean Corpuscular Hemoglobin Concent 32.9, Red Cell Distribution Width 13.2, Neutrophils (%) (Auto) 76.3 H, Lymphocytes (%) (Auto) 16.4 L, Monocytes (%) (Auto) 5.7 H, Eosinophils (%) (Auto) 0.1, Basophils (%) (Auto) 0.2, Neutrophils # (Auto) 7.3, Lymphocytes # (Auto) 1.6, Monocytes # (Auto) 0.5, Eosinophils # (Auto) 0.0, Basophils # (Auto) 0.0 Allergies Coded Allergies: ciprofloxacin (Verified Allergy, Unknown, 12/20/18) amoxicillin (Verified Adverse Reaction, Intermediate, can take few prior to dentist but can not take for 10 days, 12/20/18) pregabalin (Verified Adverse Reaction, Intermediate, UNKNOWN, 12/20/18) tizanidine (Verified Adverse Reaction, Intermediate, 12/20/18) Quinolones (Verified Adverse Reaction, Mild, ANXIETY, 12/20/18) cefuroxime (Verified Adverse Reaction, Mild, ANXIETY, 12/20/18) codeine (Verified Adverse Reaction, Mild, AGITATION, 12/20/18) lorazepam (Verified Adverse Reaction, Mild, AGITATION, 12/20/18) Home Medications Scheduled Amiloride HCl (Amiloride HCl) 5 Mg Tablet, 5 MG PO DAILY, (Reported) Aspirin (Aspir 81) 81 Mg Tab, 81 MG PO DAILY, (Reported) Azathioprine (Azathioprine) 50 Mg Tab, 100 MG PO DAILY, (Reported) Calcitriol (Calcitriol) 0.25 Mcg Cap, 0.25 MCG PO 5XW, (Reported) tue-tue Gabapentin (Gabapentin) 300 Mg Cap, 600 MG PO TID, (Reported) Magnesium Gluconate (Magnesium Gluconate) 27 Mg Tablet, 3,000 MG PO BID, (Reported) PT TAKES 6 500MG TABLETS BID Metoprolol Tartrate (Metoprolol Tartrate) 50 Mg Tab, 50 MG PO DAILY, (Reported) Potassium Chloride (Potassium Chloride) 10 Meq Tab, 10 MEQ PO DAILY, (Reported) Prednisone (Prednisone) 5 Mg Tab, 5 MG PO DAILY, (Reported) Ranitidine HCl (Ranitidine HCl) 150 Mg Tab, 1 TAB PO DAILYPRN, (Reported) Sirolimus (Rapamune) 1 Mg Tab, 3 MG PO DAILY, (Reported) Sod Phos Di, Barrow/K Phos Barrow (Virt-Phos 250 Neutral Tablet) 1 Tab Tab, 2 TAB PO BID, (Reported) Torsemide (Torsemide) 20 Mg Tab, 20 MG PO DAILY, (Reported) Vitamin B Complex Vit C No.3 (B Complex with Vitamin C) 1 Cap Cap, 1 CAP PO DAILY, (Reported) Warfarin Sodium (Warfarin Sodium) 2.5 Mg Tab, 2.5 MG PO QPM, (Reported) Scheduled PRN Cyclobenzaprine HCl (Cyclobenzaprine HCl) 10 Mg Tab, 10 MG PO TID PRN for MUSCLE SPASMS, (Reported) Diazepam (Diazepam) 2 Mg Tab, 2 MG PO TID PRN for ANXIETY, (Reported) Hydroxyzine HCl (Hydroxyzine HCl) 25 Mg Tab, 25 MG PO BID PRN for ANXIETY, (Reported) Ondansetron HCl (Ondansetron HCl) 4 Mg Tab, 4 MG PO Q6H PRN for NAUSEA, (Reported) Oxycodone/Acetaminophen (Oxycodone-Acetaminophen 5-325) 1 Tab Tab, 1 TAB PO Q6HP PRN for PAIN, (Reported) MERON HOLMAN MD May 15, 2019 02:37
[2019-05-15 05:01] VITALS: BP 148/77
--- NOTE | 2019-05-15 10:06 | REP ---
REASON FOR EXAM: Chest pain from trauma. COMPARISON: Frontal view obtained as part of an abdominal series 02/28/2019. AP and lateral views were obtained. There is global cardiomegaly accentuated by technique status quo. The technique utilized in obtaining the radiograph has magnified the cardiac silhouette and accentuated the interstitial markings. Mild fibrotic changes are again seen throughout the lung little status quo. No acute patchy parenchymal opacities or pleural effusions have developed. There is no change in the osseous structures. IMPRESSION: Stable appearing chronic changes. Electronically Signed by Clint Bhatt DO 05/15/2019 11:28 A
--- NOTE | 2019-05-15 10:21 | ECGEPIP ---
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
[2019-05-16] MEDS ORDERED: PREVNAR 13 VACCINE SYRINGE (CPT CODE:90670) IM ONE (09:00)
== END 2019-05-15 05:07 | disposition short-term general hospital (02) ==
LOC: M ED 13:11 → CANBEDREQ 05-15 03:31 → M ED 05-15 05:07
DX: S32.000A Wedge compression fracture of unspecified lumbar vertebra, initial encounter for closed fracture (principal); Y92.9 Unspecified place or not applicable; Y93.9 Activity, unspecified; G95.20 Unspecified cord compression; I48.91 Unspecified atrial fibrillation; I70.0 Atherosclerosis of aorta; K40.90 Unilateral inguinal hernia, without obstruction or gangrene, not specified as recurrent; M51.36 Other intervertebral disc degeneration, lumbar region; N20.0 Calculus of kidney; N28.1 Cyst of kidney, acquired; Z79.01 Long term (current) use of anticoagulants; Z79.82 Long term (current) use of aspirin; Z79.899 Other long term (current) drug therapy; Z88.1 Allergy status to other antibiotic agents; Z88.5 Allergy status to narcotic agent; Z88.8 Allergy status to other drugs, medicaments and biological substances; Z94.0 Kidney transplant status; Z96.0 Presence of urogenital implants
CPT/HCPCS: 36415; 71046; 72141; 72146; 72148; 74176; 80048; 80076; 81001; 82550; 82553; 83605; 84443; 84484; 85025; 93005; 96372; 96374; 96376; 99285; J2270

== ENCOUNTER 2019-06-20 14:57 | Inpatient (IN) | payer MEDICARE ==
[~2019-06-20] VITALS: Ht 175.3 cm; Wt 79.2 kg
[~2019-06-20 14:57] MED LIST changes: +MAGN500T6 PO
[2019-06-20 17:00] VITALS: BP 131/76
[2019-06-20] MEDS ORDERED: ACETAMINOPHEN TAB 650MG DOSE (2X325MG) PO PRN (17:00)
[2019-06-20] MEDS ORDERED: CYCLOBENZAPRINE 10 MG TAB PO PRN (17:00)
[2019-06-20] MEDS ORDERED: BISACODYL 10 MG SUPP PR PRN (17:00)
[2019-06-20] MEDS ORDERED: MIRA3350 PO (17:50)
[2019-06-20] MEDS ORDERED: ACET1TAB55 PO (17:50)
[2019-06-20] MEDS ORDERED: DIGO0.25 PO (17:50)
[2019-06-20] MEDS ORDERED: TORS10TA3 PO (17:50)
[2019-06-20] MEDS ORDERED: GABA-843 PO (17:50)
[2019-06-20] MEDS ORDERED: LIDO1PAD TOP (17:50)
[2019-06-20] MEDS ORDERED: BISA10SU27 PR (17:55)
[2019-06-20] MEDS ORDERED: ICY2.5GE TOP (17:55)
[2019-06-20] MEDS ORDERED: DOCU100C17 PO (17:59)
[2019-06-20] MEDS ORDERED: RA S8.6T3 PO (17:59)
--- NOTE | 2019-06-20 18:14 | CR.PDOC ---
General Date of Consultation: Jun 20, 2019 Consultation REASON FOR CONSULTATION/CHIEF COMPLAINT: Who presented to [facility] acute rehabilitation unit as a transfer from [facility] after having a laminectomy on 06/11/2019 HISTORY OF PRESENT ILLNESS: Patient is a 74-year-old male with a PMHx of CAD, Aortic stenosis, Atrial fibrillation (s/p Coumadin), HTN, DLP, IgA Nephropathy (s/p Renal transplant 2006, s/p ESRD on HD), Multiple spinal surgeries, Multiple ventral hernia repairs, Neuropathy, Iron deficiency anemia, Osteoporosis, GERD who was transferred from [facility] after receiving a laminectomy on 06/11/2019. Patient has had a complicated course of multiple hospitalizations. Patient initially presented to [facility] on 05/15/2019 and had complained of back pain after experiencing a fall. Patient was evaluated by hospitalist service as well as orthopedic surgery who had recommended the patient be tr ansferred to a higher level of care. Patient was ultimately transferred to [facility] where he was managed by his own neurosurgeon, Dr. Mccartney. Patient remains as an inpatient for 1 week duration and was subsequent discharged home. Patient again experience a fall on June 05 while he was at home. This slowly progressed to worsening pain and difficulty walking. By June 07. Patient was unable to walk and was transported to [facility] where his found to have multiple acute on chronic vertebral fractures. Patient was admitted to [facility] where he received MRI, CT scan and x-ray imaging, which are consistent with acute on chronic spinal injury. There was compression of L4-L5 spine. Laminectomy was successfully completed on 2018. After the procedure, neurosurgery had recommended that patient be kept off of his anticoagulation with Coumadin for 2 weeks following the surgery. Patients hospital course was complicated with the development of a urinary tract infection and urinary retention. Patient did receive a Villa catheter that was subsequent the removed. . He was also treated for an Escherichia coli urinary tract infection with Bactrim for 3 days duration. Patient had developed atrial fibrillation with rapid ventricular response and was hypotensive. Patient was transitioned from metoprolol to digoxin and has remained well controlled since that point. On 06/17/2019 patient was found to have a right upper extremity DVT as a result of the midline that was placed Coumadin and anticoagulation is being held until 2 weeks after procedure. Currently, patient was transferred to [facility] for continued physical therapy and rehabilitation. Hospital services consultation for further medical management. Currently patient denies any headache, nausea, vomiting, abdominal pain, constipation, diarrhea, discomfort with urination, chest pain, shortness of breath, cough or palpitations. Patient denies any fevers over the last 1 week, but does report experiencing chills. Patient notes that his weight has relatively been consistent and his appetite is fair. ALLERGIES: Please see below. HOME MEDICATIONS: Please see below. PAST MEDICAL HISTORY: CAD, Aortic stenosis, Atrial fibrillation (s/p Coumadin), HTN, DLP, IgA Nephropathy (s/p Renal transplant 2006, s/p ESRD on HD), Neuropathy, Iron deficiency anemia, Osteoporosis, GERD PAST SURGICAL HISTORY: Multiple spinal surgeries Multiple ventral hernia repairs Status post AV facial placement and partial resection on left arm Right heel open reduction internal fixation Appendectomy FAMILY HISTORY: - Patients family history is significant for congestive heart failure SOCIAL HISTORY: - Denies the use of alcohol or illicit drugs; - Denies recent travel or sick contacts - Lives with - 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; 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 REVIEW OF SYSTEMS: 10 point review of systems complete, all negative otherwise stated in HPI PHYSICAL EXAMINATION: - Vitals: BP 131/76, HR 89, RR 18, Sat 97%RA, Temp 99.8F - General: Lying in bed, No acute distress, Speaking in full sentences, AAOx3 - HEENT: NC, AT, PERRLA, EOMI - CVS: +S1S2, no appreciable rubs / gallops - Lungs: Fair air entry bilaterally, No appreciable wheezing / rales / rhonchi - Abdomen: Soft, Non-distended, Non-tender - Extremities: 1+ pitting edema bilaterally, No calf tenderness - Neuro: No focal motor or sensory deficit - Skin: Multiple areas of ecchymosis noted on abdomen and arms LABORATORY DATA: Please see below. ASSESSMENT/PLAN: Multiple vertebral fractures - 2/2 mechanical fall - Patient was noted to have L4-6 and T11-T12 compression fractures, status post laminectomy 06/11/2019 - Patient has been transferred by [facility] neurosurgical team for continued physical therapy and rehabilitation - As per neurosurgical team recommendations; Anticoagulation will be held for 2 weeks duration from the point of surgery; patient will be reevaluated by their team prior to anticoagulation restarting - Pain control and bowel regimen as per ARU - Patient will continue with physical therapy and occupation therapy at the direction of ARU Atrial fibrillation - Currently, patient appears to be rate and rhythm control - Patient was taken off of metoprolol because of hypotension - c/w rate / rhythm control with Digoxin - Will check Digoxin level in AM; will adjust dose of digoxin accordingly - Full anticoagulation with Coumadin will be held until 2 weeks after procedure; patient will be reevaluated by neurosurgical team - Again risks and benefits about holding anticoagulation in this setting have been discussed thoroughly with patient, and daughter - they have verbalized understanding of holding anticoagulation in the setting IgA Nephropathy - s/p Renal transplant 2006 - s/p ESRD on HD - c/w Prednisone, Sirolimus and Azathioprine - Patient follows with Dr. Katharine KHANNA DVT - Patient was found to have a DVT of his right upper extremity on 06/17/2019 at [facility], as a result of the midline - Currently neurosurgical team would like to hold off on anticoagulation until 2 weeks after procedure - Again risks and benefits about holding anticoagulation in this setting have been discussed thoroughly with patient, and daughter - they have verbalized understanding of holding anticoagulation in the setting Aortic stenosis - Clinically patient appears to have signs of fluid overload - Lower extremities do reveal 1+ pitting edema - Will order 2-D echocardiogram - c/w Torsemide 10 and Amiloride 5 - Will likely have to increase dose within next 24-48 hours if no resolution is noted HTN - Blood pressure is well controlled CAD - c/w ASA 81 DLP - Currently not on medications Neuropathy - c/w Gabapentin Iron deficiency anemia - Will follow Hg trend Anxiety - c/w Hydroxyzine and Diazepam GERD - c/w Protonix DVT prophylaxis - Will start TEDs/Sequentials Vital Signs/I&O Vital Signs Date Time Temp Pulse Resp B/P (MAP) Pulse Ox O2 Delivery O2 Flow Rate FiO2 06/20/19 17:00 99.8 89 18 131/76 (94) 97 Allergies Coded Allergies: ciprofloxacin (Verified Allergy, Unknown, 12/20/18) amoxicillin (Verified Adverse Reaction, Intermediate, can take few prior to dentist but can not take for 10 days, 12/20/18) pregabalin (Verified Adverse Reaction, Intermediate, UNKNOWN, 12/20/18) tizanidine (Verified Adverse Reaction, Intermediate, 12/20/18) Quinolones (Verified Adverse Reaction, Mild, ANXIETY, 3/27/19) cefuroxime (Verified Adverse Reaction, Mild, ANXIETY, 12/20/18) codeine (Verified Adverse Reaction, Mild, AGITATION, 12/20/18) lorazepam (Verified Adverse Reaction, Mild, AGITATION, 12/20/18) Home Medications Scheduled Amiloride HCl (Amiloride HCl) 5 Mg Tablet, 5 MG PO DAILY, (Reported) Aspirin (Aspir 81) 81 Mg Tab, 81 MG PO DAILY, (Reported) Azathioprine (Azathioprine) 50 Mg Tab, 100 MG PO DAILY, (Reported) Calcitriol (Calcitriol) 0.25 Mcg Cap, 0.25 MCG PO 5XW, (Reported) MON-FRI Digoxin (Digoxin) 250 Mcg Tablet, 250 MCG PO DAILY, (Reported) Gabapentin (Gabapentin) 300 Mg Cap, 300 MG PO BID, (Reported) AM/AFTERNOON Gabapentin (Gabapentin) 300 Mg Capsule, 600 MG PO QHS, (Reported) Lidocaine (Lidocaine) 5% Adh..patch, 1 PATCH TOP DAILY, (Reported) Magnesium Gluconate (Magnesium Gluconate) 27 Mg Tablet, 3,000 MG PO BID, (Reported) Potassium Chloride (Potassium Chloride) 10 Meq Tab, 10 MEQ PO DAILY, (Reported) Prednisone (Prednisone) 5 Mg Tab, 5 MG PO DAILY, (Reported) Ranitidine HCl (Ranitidine HCl) 150 Mg Tab, 1 TAB PO QPM, (Reported) Sennosides (Senna Lax) 8.6 Mg Tablet, 17.2 MG PO QHS, (Reported) Sirolimus (Rapamune) 1 Mg Tab, 3 MG PO DAILY, (Reported) Sod Phos Di, Mcmullen/K Phos Mcmullen (Virt-Phos 250 Neutral Tablet) 1 Tab Tab, 2 TAB PO TID, (Reported) Torsemide (Torsemide) 10 Mg Tablet, 10 MG PO DAILY, (Reported) Vitamin B Complex Vit C No.3 (B Complex with Vitamin C) 1 Cap Cap, 1 CAP PO DAILY, (Reported) Scheduled PRN Acetaminophen (Acetaminophen) 325 Mg Tablet, 650 MG PO Q4H PRN for PAIN, (Reported) Bisacodyl (Bisacodyl) 10 Mg Supp.rect, 10 MG ND DAILY PRN for CONSTIPATION, (Reported) Cyclobenzaprine HCl (Cyclobenzaprine HCl) 10 Mg Tab, 10 MG PO TID PRN for MUSCLE SPASMS, (Reported) Diazepam (Diazepam) 2 Mg Tab, 2 MG PO TID PRN for ANXIETY, (Reported) Docusate Sodium (Docusate Sodium) 100 Mg Capsule, 100 MG PO DAILY PRN for CONSTIPATION, (Reported) Hydroxyzine HCl (Hydroxyzine HCl) 25 Mg Tab, 25 MG PO TID PRN for ANXIETY, (Reported) Menthol (Icy Hot Pain Relieving) 70.8 Gm Gel..gram., 1 APLCT TOP DAILY PRN for PAIN, (Reported) APPLY TO BACK/SHOULDERS Ondansetron HCl (Ondansetron HCl) 4 Mg Tab, 4 MG PO Q6H PRN for NAUSEA, (Reported) Oxycodone/Acetaminophen (Oxycodone-Acetaminophen 5-325) 1 Tab Tab, 1 TAB PO Q6HP PRN for PAIN, (Reported) Polyethylene Glycol 3350 (Miralax) 119 Gm Powder, 17 GM PO DAILY PRN for CONSTIPATION, (Reported) dilute in 8 ounces of water or juice JOVANY LEMONS MD Jun 20, 2019 18:14
[2019-06-20 20:00] VITALS: BP 167/72
[2019-06-20] MEDS: GABAPENTIN 300 MG CAP PO SCH (20:46)
[2019-06-20] MEDS: SENNA 8.6 MG TAB (SENOKOT) PO SCH (20:46)
[2019-06-20] MEDS: oxyCODONE 5MG TAB PO PRN (20:46)
[2019-06-20] MEDS: diazePAM 2 MG TAB PO PRN (20:47)
[2019-06-20] MEDS: DOCUSATE SODIUM 100 MG CAP PO SCH (20:47)
[2019-06-21] MEDS: oxyCODONE 5MG TAB PO PRN ×3 (03:33→20:46)
[2019-06-21 04:00] VITALS: BP 109/52
[2019-06-21 09:14] LABS: BASO % 0.1 % (0.0-1.0); EOS % 0.2 % (0.0-3.0); HEMATOCRIT 31.1 % (42.0-52.0); LYMPH # 1.4 10^3/uL (1.5-5.0); LYMPH % 17.1 % (24.0-44.0); MEAN CORPUSCULAR HEMOGLOBIN 29.9 pg (27.0-33.0); MEAN CORPUSCULAR HGB CONC 32.2 g/dl (32.0-36.5); MEAN CORPUSCULAR VOLUME 93.1 fl (80.0-96.0); MONO # 1.1 10^3/uL (0.0-0.8); MONO % 13.1 % (0.0-5.0); NEUTROPHILS # 5.6 10^3/uL (1.5-8.5); NEUTROPHILS % 68.4 % (36.0-66.0); PLATELET COUNT, AUTOMATED 346 10^3/uL (150-450); RED BLOOD COUNT 3.34 10^6/uL (4.30-6.10); WHITE BLOOD COUNT 8.2 10^3/uL (4.0-10.0)
[2019-06-21] MEDS: VITAMIN B COMPLEX/VIT C CAP PO SCH (09:15)
[2019-06-21] MEDS: TORSEMIDE 10 MG TABLET PO SCH (09:15)
[2019-06-21] MEDS: POTASSIUM CHLORIDE 10 MEQ SR TABLET PO SCH (09:15)
[2019-06-21] MEDS: ASPIRIN 81 MG CHEW TABLET PO SCH (09:15)
[2019-06-21] MEDS: PANTOPRAZOLE 40MG TAB (PROTONIX) PO SCH (09:15)
[2019-06-21] MEDS: DOCUSATE SODIUM 100 MG CAP PO SCH ×2 (09:16→20:46)
[2019-06-21] MEDS: aMILoride 5 MG TAB PO SCH (09:16)
[2019-06-21] MEDS: azaTHIOprine 50 MG TAB (J7500) PO SCH (09:16)
[2019-06-21] MEDS: DIGOXIN 0.25 MG TAB PO SCH (09:16)
[2019-06-21] MEDS: GABAPENTIN 300 MG CAP PO SCH ×3 (09:16→20:47)
[2019-06-21] MEDS: CALCITRIOL 0.25 MCG CAP (S0169) PO SCH (09:16)
[2019-06-21] MEDS: predniSONE 5 MG TAB PO SCH (09:19)
[2019-06-21 09:45] LABS: ALBUMIN 2.6 GM/DL (3.2-5.2); ALT/SGPT 19 U/L (12-78); BILIRUBIN,TOTAL 0.3 MG/DL (0.2-1.0); BLOOD UREA NITROGEN 13 MG/DL (7-18); CALCIUM LEVEL 9.8 MG/DL (8.8-10.2); CARBON DIOXIDE LEVEL 26 MEQ/L (21-32); CHLORIDE LEVEL 103 MEQ/L (98-107); CREATININE FOR GFR 0.76 MG/DL (0.70-1.30); DIGOXIN LEVEL 0.6 NG/ML (0.5-2.0); GLOMERULAR FILTRATION RATE > 60.0 (>42); GLUCOSE, FASTING 98 MG/DL (70-100); MAGNESIUM LEVEL 1.6 MG/DL (1.8-2.4); SODIUM LEVEL 138 MEQ/L (136-145); TOTAL PROTEIN 5.9 GM/DL (6.4-8.2)
[2019-06-21] MEDS: MAGNESIUM GLUCONATE 500 MG TAB PO SCH ×3 (12:22→20:46)
[2019-06-21] MEDS: BACTRIM 160MG/800MG DS TAB PO SCH ×2 (12:23→20:46)
[2019-06-21] MEDS: diazePAM 2 MG TAB PO PRN ×2 (12:27→20:46)
[2019-06-21 14:00] VITALS: BP 108/72
--- NOTE | 2019-06-21 14:34 | HPEPDOC ---
Credit Analysis Manager Note DATE OF ADMISSION: 06/20/19 SOURCE OF ADMISSION INFORMATION: [facility] records and patient CHIEF COMPLAINT: lumbar stenosis s/p laminectomy HISTORY OF PRESENT ILLNESS: 74M pmh Afib, IgA Nephropathy s/p kidney transplant 2006, Aortic stenosis, spinal stenosis, restless leg syndrome, CAD who presented to [facility] on 06/07/19 reporting worsening weakness in his legs and difficulty walking in addition to urinary stream weakness. MR spine without contrast showed, Acute/subacute mild compression fracture of the L4 and L5 vertebral bodiesStable chronic compression fractures of the T12 and L1 vertebral bodiesThere is moderate crowding of cauda equina. Neurosurgery was consulted, his Warfarin held, ECHO showed [id number] Aortic Stenosis, was ult imately cleared by medicine and underwent a L4-5 laminectomy performed without complications. He had burning with urination and intermittent hematuria with culture growing E. coli and started on Bactrim with partial resolution of his symptoms. He also developed a RUE DVT with US showing, Acute non occlusive deep venous thrombosis of one of the paired right brachial veins directly involving the intravenous line in the mid upper arm. Neurosurgery did not recommend anticoagulation until follow-up visit on 06/28/19. His beta-violette was held due to low blood pressures, however he had an episode of RVR and was started on digoxin. He was evaluated by therapy and noted to have difficulties in mobility and ADLs below his prior level of function and deemed medically appropriate for discharge to ARU on 06/20/19. REVIEW OF SYSTEMS: The following is a completed review of systems and has been reviewed. Review of systems otherwise unremarkable. PAIN: Patient self reports low back pain EYES: No recent vision changes EARS, NOSE, & THROAT: No throat pain, or dysphagia, or rhinorrhea CARDIOVASCULAR: Denies chest pain or palpitations PULMONARY: Denies shortness of breath GASTROINTESTINAL: Denies constipation/diarrhea GENITOURINARY: +dysuria with retention MUSCULOSKELETAL: +cervical and lumbar stenosis NEUROLOGICAL:no focal tremor or seizure activity HEMATOLOGICAL: +easy bruising SKIN: lumbar incision PSYCHIATRIC: Unremarkable All other review of systems found to be negative. PAST MEDICAL HISTORY: as per HPI PAST SURGICAL HISTORY: Appendectomy, kidney transplant, ventral hernia repairs, spinal surgeries, AV fistula ALLERGIES: Please see below. MEDICATIONS: Please see below. FAMILY HISTORY: DM, CAD, Kidney disease SOCIAL HISTORY: +ETOH, former smoker, no illicit drugs DIET: low sodium PHYSICAL EXAMINATION: VITAL SIGNS: Please see below. GENERAL: Pleasant and cooperative. No acute distress. HEENT: PERRL. Extraocular movements intact. Clear conjunctiva CARDIOVASCULAR: Irregular rate and rhythm. No murmurs, rubs, or gallops LUNGS: Clear to auscultation bilaterally. No wheezes. No rhonchi ABDOMEN: Soft, nontender, nondistended. Positive bowel sounds. NEUROLOGICAL: Alert and oriented times three. Cranial nerves II through XII grossly intact. Sensation grossly intact in all 4 extremities EXTREMITIES: 4\5 strength bilateral upper extremities. 4-\5 strength right lower extremity. 4+/5 strength in left lower extremity. +bilateral calf edema left>right SKIN: lumbar incision and drain mildly erythematous, no induration LUE old AV fistula LABORATORY DATA: Please see below. IMAGING:Imaging documentation personally reviewed by record FUNCTIONAL STATUS: Premorbid: Modified Independent with all activities of daily life as well as mobility with RW On Admission: Minimum assistance for bathing, upper body dressing, bed chair and wheelchair transfers, toilet transfers, ambulation. GOALS: Modified Independent with all activities of daily life as well as mobility with RW, Mod-I functional transfers, stairs, fall recovery ASSESSMENT:74-year-old M with past medical history of IgA nephropathy s/p kidney transplant, lumbar stenosis with claudication who presents status post L4-5 laminectomy. PLAN: 1. rehab- PT strengthen/stretch/maintain ROM bilat LE, improve gait endurance, dynamic balance training, stairs, fall recovery- spinal precautions OT strengthen/stretch/maintain ROM bilat UE, improve coordination for optimal ADL management maintaining spinal precautions 2. Neuro/Ortho- patient s/p L4-L5 laminectomy with psh of multiple spine surgeries for cervical myelopathy and spinal stenosis with gait and balance impairment with recurrent falls -f/u neurosurgery 06-28-19 3. Cardio: pmh Afib currently on digoxin started at [facility] , beta-violette held at [facility] due to drops in BP -Mod-severe aortic stenosis c/u amiloride and Torsemide, medicine consulted to assist in management 4. Resp: encourage incentive spirometry and monitor for infection 5. Renal: s/p kidney transplant 2006 c/u prednisone, sirolimus, azathioprine 6. GI ppx: protonix, optimize bowel meds 7. DVT ppx: TEDs, +DVT RUE treatment on hold until cleared by neurosurgery 8. Pain: Tylenol, oxycodone prn, valium, gabapentin 9. : patient had +Ucx for E coli and received 4 days of Bactrim with partial resolution of symptoms, will recheck UA and continue Bactrim for total dosing 14 days given complicated UTI- will monitor [employer] while on this med 10. Dispo: TBD POST ADMISSION PHYSICIAN EVALUATION: Medical and functional status: Description of medical status, medical assessment: As above. Rehabilitation diagnosis and current and prior cold morbid medical conditions as above. Risk of complications and plans to mitigate them as above. Description of functional status current status is as above. Prior status as above. Status compared to preadmission: There are no clinically significant differences between the patient's current status and the information described on the preadmission screening document. Treatment plan anticipated: Treatment plan is as described above. Required disciplines including physical therapy, occupational therapy, others as noted above. Intensity of services: 3 hours a day, 6 days a week. Special considerations: There are no specific special or safety considerations that would likely preclude immediate implementation of an intensive rehabilitation program or subsequently influence the plan of care. ATTESTATION: Considering all the information above, it is my best judgment that this patient requires intensive rehabilitation therapy as described above and an inpatient hospital environment due to the complexity of nursing, medical, and rehabilitation needs required by the patient. Furthermore, this patient can reasonably be expected to participate in an benefit from an inpatient rehabilitation stay with an interdisciplinary team approach to the delivery of rehabilitation care under the direction and supervision of rehabilitation physician. PROGNOSIS: Good ESTIMATED LENGTH OF STAY:14-18 days. PROJECTED DISCHARGE DESTINATION: Home with family support and any durable medical equipment required to increase functional safety and mobility TIME SPENT COUNSELING AND COORDINATING INITIAL CARE: Greater than 70 minutes. Vital Signs Vital Sign - Last 24 Hours 06/20/19 06/20/19 06/20/19 06/20/19 17:00 20:00 20:46 21:00 Temp 99.8 98.9 Pulse 89 87 Resp 18 18 18 18 B/P (MAP) 131/76 (94) 167/72 (103) Pulse Ox 97 99 06/20/19 06/21/19 06/21/19 06/21/19 21:16 03:33 04:00 04:18 Temp 100.2 Pulse 100 Resp 18 18 18 18 B/P (MAP) 109/52 (71) Pulse Ox 92 06/21/19 06/21/19 06/21/19 06/21/19 06:00 09:00 09:16 12:23 Temp 99.9 Pulse 74 Resp 18 16 06/21/19 12:53 Resp 16 Laboratory Data CBC/BMP Laboratory Tests 06/21/19 09:01 Red Blood Count 3.34 L, Mean Corpuscular Volume 93.1, Mean Corpuscular Hemoglobin 29.9, Mean Corpuscular Hemoglobin Concent 32.2, Red Cell Distribution Width 13.6, Neutrophils (%) (Auto) 68.4 H, Lymphocytes (%) (Auto) 17.1 L, Monocytes (%) (Auto) 13.1 H, Eosinophils (%) (Auto) 0.2, Basophils (%) (Auto) 0.1, Neutrophils # (Auto) 5.6, Lymphocytes # (Auto) 1.4 L, Monocytes # (Auto) 1.1 H, Eosinophils # (Auto) 0.0, Basophils # (Auto) 0.0, Calcium Level 9.8, Aspartate Amino Transf (AST/SGOT) 38 H, Alanine Aminotransferase (ALT/SGPT) 19, Alkaline Phosphatase 121 H, Total Bilirubin 0.3, Total Protein 5.9 L, Albumin 2.6 L Labs 24H Laboratory Tests 2 06/21/19 09:01: Immature Granulocyte % (Auto) 1.1, White Blood Count 8.2, Red Blood Count 3.34L, Hemoglobin 10.0L, Hematocrit 31.1L, Mean Corpuscular Volume 93.1, Mean Corpuscular Hemoglobin 29.9, Mean Corpuscular Hemoglobin Concent 32.2, Red Cell Distribution Width 13.6, Platelet Count 346, Neutrophils (%) (Auto) 68.4H, Lymphocytes (%) (Auto) 17.1L, Monocytes (%) (Auto) 13.1H, Eosinophils (%) (Auto) 0.2, Basophils (%) (Auto) 0.1, Neutrophils # (Auto) 5.6, Lymphocytes # (Auto) 1.4L, Monocytes # (Auto) 1.1H, Eosinophils # (Auto) 0.0, Basophils # (Auto) 0.0, Nucleated Red Blood Cells % (auto) 0.0, Anion Gap 9, Glomerular Filtration Rate > 60.0, Blood Urea Nitrogen 13, Creatinine 0.76, Sodium Level 138, Potassium Level 4.0, Chloride Level 103, Carbon Dioxide Level 26, Calcium Level 9.8, Aspartate Amino Transf (AST/SGOT) 38H, Alanine Aminotransferase (ALT/SGPT) 19, Alkaline Phosphatase 121H, Total Bilirubin 0.3, Total Protein 5.9L, Albumin 2.6L, Magnesium Level 1.6L, Albumin/Globulin Ratio 0.79L, Digoxin Level 0.6 Microbiology Microbiology 06/21/19 Blood Culture, Received Pending 06/21/19 Blood Culture, Received Pending Home Medications Scheduled Amiloride HCl (Amiloride HCl) 5 Mg Tablet, 5 MG PO DAILY, (Reported) Aspirin (Aspir 81) 81 Mg Tab, 81 MG PO DAILY, (Reported) Azathioprine (Azathioprine) 50 Mg Tab, 100 MG PO DAILY, (Reported) Calcitriol (Calcitriol) 0.25 Mcg Cap, 0.25 MCG PO 5XW, (Reported) MON-FRI Digoxin (Digoxin) 250 Mcg Tablet, 250 MCG PO DAILY, (Reported) Gabapentin (Gabapentin) 300 Mg Cap, 300 MG PO BID, (Reported) AM/AFTERNOON Gabapentin (Gabapentin) 300 Mg Capsule, 600 MG PO QHS, (Reported) Lidocaine (Lidocaine) 5% Adh..patch, 1 PATCH TOP DAILY, (Reported) Magnesium Gluconate (Magnesium Gluconate) 27 Mg Tablet, 3,000 MG PO BID, (Reported) Potassium Chloride (Potassium Chloride) 10 Meq Tab, 10 MEQ PO DAILY, (Reported) Prednisone (Prednisone) 5 Mg Tab, 5 MG PO DAILY, (Reported) Ranitidine HCl (Ranitidine HCl) 150 Mg Tab, 1 TAB PO QPM, (Reported) Sennosides (Senna Lax) 8.6 Mg Tablet, 17.2 MG PO QHS, (Reported) Sirolimus (Rapamune) 1 Mg Tab, 3 MG PO DAILY, (Reported) Sod Phos Di, [place]/K Phos [place] (Virt-Phos 250 Neutral Tablet) 1 Tab Tab, 2 TAB PO TID, (Reported) Torsemide (Torsemide) 10 Mg Tablet, 10 MG PO DAILY, (Reported) Vitamin B Complex Vit C No.3 (B Complex with Vitamin C) 1 Cap Cap, 1 CAP PO DAILY, (Reported) Scheduled PRN Acetaminophen (Acetaminophen) 325 Mg Tablet, 650 MG PO Q4H PRN for PAIN, (Reported) Bisacodyl (Bisacodyl) 10 Mg Supp.rect, 10 MG IN DAILY PRN for CONSTIPATION, (Reported) Cyclobenzaprine HCl (Cyclobenzaprine HCl) 10 Mg Tab, 10 MG PO TID PRN for MUSCLE SPASMS, (Reported) Diazepam (Diazepam) 2 Mg Tab, 2 MG PO TID PRN for ANXIETY, (Reported) Docusate Sodium (Docusate Sodium) 100 Mg Capsule, 100 MG PO DAILY PRN for CONSTIPATION, (Reported) Hydroxyzine HCl (Hydroxyzine HCl) 25 Mg Tab, 25 MG PO TID PRN for ANXIETY, (Reported) Menthol (Icy Hot Pain Relieving) 70.8 Gm Gel..gram., 1 APLCT TOP DAILY PRN for PAIN, (Reported) APPLY TO BACK/SHOULDERS Ondansetron HCl (Ondansetron HCl) 4 Mg Tab, 4 MG PO Q6H PRN for NAUSEA, (Reported) Oxycodone/Acetaminophen (Oxycodone-Acetaminophen 5-325) 1 Tab Tab, 1 TAB PO Q6HP PRN for PAIN, (Reported) Polyethylene Glycol 3350 (Miralax) 119 Gm Powder, 17 GM PO DAILY PRN for CONSTIPATION, (Reported) dilute in 8 ounces of water or juice Allergies Coded Allergies: ciprofloxacin (Verified Allergy, Unknown, 12/20/18) amoxicillin (Verified Adverse Reaction, Intermediate, can take few prior to dentist but can not take for 10 days, 12/20/18) pregabalin (Verified Adverse Reaction, Intermediate, UNKNOWN, 12/20/18) tizanidine (Verified Adverse Reaction, Intermediate, 12/20/18) Quinolones (Verified Adverse Reaction, Mild, ANXIETY, 12/20/18) cefuroxime (Verified Adverse Reaction, Mild, ANXIETY, 12/20/18) codeine (Verified Adverse Reaction, Mild, AGITATION, 12/20/18) lorazepam (Verified Adverse Reaction, Mild, AGITATION, 12/20/18) A-FIB/CHADSVASC A-FIB History Current/History of A-Fib/PAF?: Yes Current PO Anticoag Therapy: No FARHAN LAMAR MD Jun 21, 2019 14:34
[2019-06-21 20:00] VITALS: BP 113/68
[2019-06-21] MEDS: SENNA 8.6 MG TAB (SENOKOT) PO SCH (20:47)
--- NOTE | 2019-06-21 21:06 | CR ---
DATE OF CONSULTATION: 06/21/2019 NEPHROLOGY CONSULTATION FOR: Vivian Abdul MD HISTORY OF PRESENT ILLNESS: Mr. Kwon is very well known to me. He is a 74-year-old male with multiple chronic medical problems. He had end-stage renal disease several years ago and was on hemodialysis for a number of years. In 2006 he underwent a donor kidney transplant, which has been functioning well with serum creatinine at about 1.0 mg/dL at baseline. He does have a history of kidney stones in his transplant kidney and has required a nephrolithotomy in the past. Other medical problems include hypertension, severe osteoporosis due to long- term steroid use and end-stage renal disease with compression fractures. He had extensive surgery on his cervical and thoracic spine in the past. He has severe spinal stenosis. The patient also has moderate to severe aortic stenosis, which has been stable for the last few years. He has difficulty in ambulation due to severe degenerative arthritis and chronic spinal stenosis. The patient had difficulty walking and a couple of falls at home suddenly without any reason and then he presented to [facility] where he was found to have compression fractures of L4 and L5. He had been on long-term anticoagulation due to paroxysmal atrial fibrillation and Coumadin was held, and the patient was finally cleared for surgery. He had L4-L5 laminectomy done. He is very weak and had difficulty ambulating due to which he is now transferred to acute rehab unit at [facility]. A nephrology consultation was requested, and the patient is seen this morning. Past surgical history is significant for history of appendectomy, history of multiple surgeries for arteriovenous (AV) fistulas and grafts in the past, history of multiple hernia repairs - incisional and ventral hernias, history of kidney transplant, and history of spinal surgeries. ALLERGIES: The patient has multiple allergies including CIPROFLOXACIN, LYRICA, AMOXICILLIN, QUINOLONES, TIZANIDINE, CODEINE, CEFUROXIME, LORAZEPAM AND PREGABALIN. I believe most of these are not true allergies but just patient intolerance of them. MEDICATIONS: His home medications include amiloride 5 mg daily, aspirin 81 mg daily, Imuran 100 mg daily, calcitriol 0.25 mcg five times a week, digoxin 250 mcg once a day, gabapentin 300 mg twice a day and 600 mg at bedtime, magnesium gluconate 500 mg six tablets twice a day, potassium chloride 10 mEq daily, prednisone 5 mg daily, ranitidine 150 mg daily, Rapamune 3 mg daily, torsemide 10 mg daily, vitamin B complex with C one tablet daily, cyclobenzaprine 10 mg three times a day for muscle spasm, diazepam 2 mg every 6 hours as needed for anxiety, hydroxyzine 50 mg three times a day as needed for anxiety, Percocet 5/325 mg one tablet every 6 hours as needed for severe pain, Zofran 4 mg as needed for nausea. 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 No history of alcohol or drug use. He denies any tobacco use. FAMILY HISTORY: Noncontributory for this admission. There is no family history for end-stage renal disease. REVIEW OF SYSTEMS: The patient denies any fever or chills. He reports sudden falls at home prior to admission and was found to have crowding of cauda equina and compression fractures of L4 and L5 vertebrae. Ears, nose and throat are unremarkable. Cardiovascular system significant for moderate to severe aortic stenosis. Respiratory system is negative for cough or hemoptysis. Gastrointestinal (GI) system is negative for vomiting or diarrhea. Genitourinary () system is significant for dysuria and urgency. He has been treated for a urinary tract infection during recent hospitalization. He still has some symptoms. Musculoskeletal system is as per history of present illness. Endocrine system is significant for secondary hyperparathyroidism and no history of diabetes. Neurological system is significant for severe peripheral neuropathy and spinal stenosis. Psychosocial system is significant for anxiety and mild depression. Hematological system is significant for chronic anticoagulation due to atrial fibrillation. PHYSICAL EXAMINATION: At the time of my visit, the patient is sitting in the chair. He is still feeling very weak and has difficulty getting up. Temperature 97.8 degrees Fahrenheit, heart rate 74 per minute and respiratory rate 16 per minute. Blood pressure 108/72 mmHg and oxygen saturation 92% on room air. Head is atraumatic. Pupils equal and reactive to light and sclera is anicteric. Ears, nose and throat are unremarkable. Heart exam reveals regular rhythm and grade 3/6 systolic murmur at aortic area. There is no pericardial friction rub. Lungs sound clear to auscultation. Abdomen is soft and nontender and multiple old surgical scars from his prior hernia surgeries and kidney transplant. Transplant kidney in right lower quadrant is nontender. Extremities have no cyanosis or clubbing. He has mild edema on his right hand and trace edema on his ankles. Neurologically he is awake, alert and oriented times three. LABORATORY DATA: WBC count 8.2, hemoglobin 10.0 and hematocrit 31. Platelets 346. Sodium 138, potassium 4.0, CO2 26, BUN 13 and creatinine 0.76. Calcium 9.8 and magnesium 1.6. Total protein 5.9 and albumin 2.6. Digoxin level is 0.6. PROBLEM #1: Kidney transplant status. The patient has well-functioning transplant kidney since 2006. His function is stable at baseline and electrolytes are normal range except a magnesium level of 1.6. He has been on chronic antirejection medications with prednisone, azathioprine and sirolimus. I would recommend to continue with chronic medications. Sirolimus is not available at [facility], and the patient will take his own pills. PROBLEM #2: Aortic stenosis. He has known history of moderate to severe aortic stenosis for which at this point there is no emergent indication for any surgical intervention. We will monitor him closely. PROBLEM #3: Atrial fibrillation. The patient does have history of paroxysmal atrial fibrillation, and he did have an episode while at the hospital after surgery and he has been put on digoxin but anticoagulation is currently on hold due to recent surgery. PROBLEM #4: Hypomagnesemia. This is chronic and the patient would require magnesium supplement. At this point, will start with 500 mg four times a day and recheck his magnesium level in a few days. PROBLEM #5: Urinary tract infection (UTI). The patient was treated in the hospital with Bactrim for UTI. However, he still reports symptoms, and I will get another urinalysis and culture. If his symptoms do not improve, then we will consider an ultrasound of transplant kidney and bladder in order to rule out any possibility of kidney stones. PROBLEM #6: Anemia. This is most likely related to recent hospitalization. He normally does not have any significant anemia. Thank you for involving me in the care of Mr. Kwon. I will follow him along with you. VAIBHAV
[2019-06-22 06:00] VITALS: BP 94/55
[2019-06-22] MEDS: SIROLIMUS PO SCH (09:34)
[2019-06-22] MEDS: POTASSIUM CHLORIDE 10 MEQ SR TABLET PO SCH (09:35)
[2019-06-22] MEDS: VITAMIN B COMPLEX/VIT C CAP PO SCH (09:35)
[2019-06-22] MEDS: DOCUSATE SODIUM 100 MG CAP PO SCH ×2 (09:35→20:44)
[2019-06-22] MEDS: CALCITRIOL 0.25 MCG CAP (S0169) PO SCH (09:35)
[2019-06-22] MEDS: predniSONE 5 MG TAB PO SCH (09:35)
[2019-06-22] MEDS: MAGNESIUM GLUCONATE 500 MG TAB PO SCH ×4 (09:35→20:43)
[2019-06-22] MEDS: TORSEMIDE 10 MG TABLET PO SCH (09:35)
[2019-06-22] MEDS: ASPIRIN 81 MG CHEW TABLET PO SCH (09:35)
[2019-06-22] MEDS: aMILoride 5 MG TAB PO SCH (09:35)
[2019-06-22] MEDS: GABAPENTIN 300 MG CAP PO SCH ×3 (09:36→20:43)
[2019-06-22] MEDS: DIGOXIN 0.25 MG TAB PO SCH (09:36)
[2019-06-22] MEDS: PANTOPRAZOLE 40MG TAB (PROTONIX) PO SCH (09:36)
[2019-06-22] MEDS: BACTRIM 160MG/800MG DS TAB PO SCH ×2 (09:36→20:43)
[2019-06-22] MEDS: azaTHIOprine 50 MG TAB (J7500) PO SCH (09:38)
[2019-06-22] MEDS: oxyCODONE 5MG TAB PO PRN ×3 (11:20→23:41)
[2019-06-22] MEDS: diazePAM 2 MG TAB PO PRN (11:20)
--- NOTE | 2019-06-22 11:48 | ECHO ---
DATE OF PROCEDURE: 06/21/2019 HEIGHT: 69 inches WEIGHT: 160 pounds. BODY SURFACE AREA: 1.88 meters squared. REFERRING PHYSICIAN: Dr. Luz Deng. INDICATION: Edema. MEASUREMENTS: 2D Measurements: RV - 3.4 cm LV - 5.1 cm Septum -1.1 cm Posterior wall -1.1 cm Aortic root - 3.4 cm LA - 4.9 cm LVEF - 65% Doppler Measurements: AV - 3.48 meters per second LVOT - 0.88 meters per second Mean AV gradient - 21 mmHg Dimensionless index - 0.28 LVOT diameter - 1.8 cm MV-E - 149 Early mitral deceleration time - 183 milliseconds E prime 5.5 E/E prime ratio 27 PV - 0.75 Pulmonary artery acceleration time - 85 milliseconds RVSP - 41 mmHg IVC - 1.5 cm COMMENTS: Underlying atrial flutter with controlled ventricular response. No intraventricular conduction disturbance. Technically challenging study in light of the patient's body habitus but diagnostically useful information was still obtained. M-mode and two-dimensional echocardiography was performed with pulsed, continuous wave, color flow and tissue Doppler studies. Mild concentric left ventricle hypertrophy with normal wall motion. At least moderately dilated left atrium. Somewhat difficult to comment on LV diastolic function with atrial flutter/fibrillation but mean left atrial pressure was believed to be elevated. Normal right ventricular size and motion with Doppler evidence of moderate pulmonary retention. Mildly dilated right atrium but normal IVC size and collapse against an elevated central venous pressure. Severe aortic valvular sclerosis/calcification with moderately severe aortic stenosis and mild - moderate insufficiency. Normal aortic root size. Severe mitral annular calcification without significant leaflet thickening and no posterior systolic buckling but mild to possibly moderate insufficiency. Normal appearing tricuspid valve with mild insufficiency. No separate intracardiac mass or pericardial effusion. In light of the above test findings, should this the patient developed anginal pain, congestive heart failure (CHF) or syncope, cardiac catheterization would be recommended with view to aortic valve replacement. Otherwise a followup study should be obtained in 1 year.
--- NOTE | 2019-06-22 11:51 | REP ---
CT of the abdomen and pelvis without IV or bowel contrast for calculi in the transplanted kidney: Comparison is 05/14/2019. There is a transplanted kidney in the pelvis on the right as previously. There is a non obstructive calculus at the mid pole measuring up to 5 mm, unchanged. There is a nonobstructive calculus at the lower pole measuring 5 x 8 mm, unchanged. There is no hydronephrosis in the transplanted kidney. There is a renal cortical cyst in the mid pole of the transplanted kidney measuring 3.2 cm, unchanged. There is no hydronephrosis in the transplanted kidney. The [place] kidneys are markedly atrophic and calcified, as previously. There is mesh along the anterior abdominal wall in the midline . There is an ovoid fluid collection in the anterior abdominal wall subcutaneous soft tissues, unchanged from the prior study, measuring 6.1 by 2.0 centimeters, likely a seroma. Just superior to the upper margin of the mesh. There is a large left inguinal hernia containing a loop of sigmoid colon. This is unchanged. There is no evidence of bowel strangulation or obstruction. The visualized lung little demonstrate small bilateral pleural effusions as an interval change. Cardiac size is mildly enlarged. This is unchanged. The hepatic parenchyma, gallbladder, pancreas, spleen, adrenals and abdominal aorta are unremarkable. Pelvis: The bladder is unremarkable. Left inguinal hernia as described. No ascites or adenopathy. Impression: No significant interval change except for small bilateral pleural effusions. There is a pelvic renal transplant on the right. There are two nonobstructive calculi within the transplanted kidney. There is no hydronephrosis in the transplanted kidney. There is a cyst in the transplanted kidney. All of these findings are unchanged. The [place] kidneys are markedly atrophic and calcified. This is unchanged. There is midline anterior abdominal wall mesh, unchanged. There is a fluid collection in the anterior abdominal wall just above the level of the mesh, unchanged, likely a seroma. There is a large left inguinal hernia containing a loop of colon, unchanged. There is no evidence of bowel obstruction or strangulation. There are small bilateral pleural effusions as an interval change. Cardiac size is mildly enlarged, unchanged. Electronically Signed by Fantasma Clements MD 06/22/2019 11:42 A
--- NOTE | 2019-06-22 13:49 | IPNPDOC ---
PM&R Progress Note DATE OF SERVICE: Jun 21, 2019 [facility] Nurse Progress Note Subjective: Patient seen today stating he feels well, reporting he was able to walk and do some stairs in therapy. His brought in Sirolimus. REVIEW OF SYSTEMS: The following is a completed review of systems and has been reviewed. Review of systems otherwise unremarkable. PAIN: Patient self reports low back pain EYES: No recent vision changes EARS, NOSE, & THROAT: No throat pain, or dysphagia, or rhinorrhea CARDIOVASCULAR: Denies chest pain or palpitations PULMONARY: Denies shortness of breath GASTROINTESTINAL: Denies constipation/diarrhea GENITOURINARY: +dysuria with retention MUSCULOSKELETAL: +cervical and lumbar stenosis NEUROLOGICAL:no focal tremor or seizure activity HEMATOLOGICAL: +easy bruising SKIN: lumbar incision PSYCHIATRIC: Unremarkable All other review of systems found to be negative. PHYSICAL EXAMINATION: VITAL SIGNS: Please see below. GENERAL: Pleasant and cooperative. No acute distress. HEENT: PERRL. Extraocular movements intact. Clear conjunctiva CARDIOVASCULAR: Irregular rate and rhythm. No murmurs, rubs, or gallops LUNGS: Clear to auscultation bilaterally. No wheezes. No rhonchi ABDOMEN: Soft, nontender, nondistended. Positive bowel sounds. NEUROLOGICAL: Alert and oriented times three. Cranial nerves II through XII grossly intact. Sensation grossly intact in all 4 extremities EXTREMITIES: 4\5 strength bilateral upper extremities. 4-\5 strength right lower extremity. 4+/5 strength in left lower extremity. +bilateral calf edema left>right SKIN: lumbar incision and drain mildly erythematous, no induration LUE old AV fistula ASSESSMENT:74-year-old M with past medical history of IgA nephropathy s/p kidney transplant, lumbar stenosis with claudication who presents status post L4-5 laminectomy. PLAN: 1. rehab- PT strengthen/stretch/maintain ROM bilat LE, improve gait endurance, dynamic balance training, stairs, fall recovery- spinal precautions OT strengthen/stretch/maintain ROM bilat UE, improve coordination for optimal ADL management maintaining spinal precautions 2. Neuro/Ortho- patient s/p L4-L5 laminectomy with psh of multiple spine surgeries for cervical myelopathy and spinal stenosis with gait and balance impairment with recurrent falls -f/u neurosurgery 06-28-19 3. Cardio: pmh Afib currently on digoxin started at [facility] , beta-violette held at [facility] due to drops in BP -Mod-severe aortic stenosis c/u amiloride and Torsemide, medicine consulted to assist in management 4. Resp: encourage incentive spirometry and monitor for infection 5. Renal: s/p kidney transplant 2006 c/u prednisone, sirolimus, azathioprine -ok to use left arm for BPs as fistula is inactive 6. GI ppx: protonix, optimize bowel meds 7. DVT ppx: TEDs, +DVT RUE treatment on hold until cleared by neurosurgery 8. Pain: Tylenol, oxycodone prn, valium, gabapentin 9. : patient had +Ucx for E coli and received 4 days of Bactrim with partial resolution of symptoms, continue Bactrim for total dosing 14 days given complicated UTI- will monitor Integration Manager while on this med 10. ID: given immunocompromised state will check Blood cultures in addition to repeat UA and Ucx 10. Dispo: TBD Allergies Coded Allergies: ciprofloxacin (Verified Allergy, Unknown, 12/20/18) amoxicillin (Verified Adverse Reaction, Intermediate, can take few prior to dentist but can not take for 10 days, 12/20/18) pregabalin (Verified Adverse Reaction, Intermediate, UNKNOWN, 12/20/18) tizanidine (Verified Adverse Reaction, Intermediate, 12/20/18) Quinolones (Verified Adverse Reaction, Mild, ANXIETY, 12/20/18) cefuroxime (Verified Adverse Reaction, Mild, ANXIETY, 12/20/18) codeine (Verified Adverse Reaction, Mild, AGITATION, 12/20/18) lorazepam (Verified Adverse Reaction, Mild, AGITATION, 12/20/18) Vital Signs Vital Signs Date Time Temp Pulse Resp B/P (MAP) Pulse Ox O2 Delivery O2 Flow Rate FiO2 06/22/19 11:50 18 06/22/19 09:36 68 06/22/19 06:00 98.8 94/55 (68) 96 Laboratory Data Labs 24H Laboratory Tests 2 06/21/19 23:41: Urine Color YELLOW, Urine Appearance HAZY, Urine pH 7.0, Urine Specific [place] 1.011, Urine Protein NEGATIVE, Urine Glucose (UA) NEGATIVE, Urine Ketones NEGATIVE, Urine Blood NEGATIVE, Urine Nitrite NEGATIVE, Urine Bilirubin NEGATIVE, Urine Urobilinogen 4.0H, Urine Leukocyte Esterase 1+H, Urine WBC (Auto) 14H, Urine RBC (Auto) 9H, Urine Hyaline Casts (Auto) 0, Urine Bacteria (Auto) NEGATIVE, Urine Squamous Epithelial Cells 1, Urine Sperm (Auto) Microbiology Microbiology 06/21/19 Urine Culture, Received Pending 06/21/19 Blood Culture, Received Pending 06/21/19 Blood Culture - Preliminary, Resulted No growth after 24 hours . All specim... Current Medications Current Medications Current Medications Medications (Trade) Dose Ordered Sig/Dionte Route PRN Reason Start Time Stop Time Status Last Admin Dose Admin Acetaminophen (Tylenol Tab) 650 mg Q4HP PRN PO fever/MILD PAIN (PS 1-4) 06/20/19 17:00 Amiloride HCl (Midamor) 5 mg DAILY PO 06/21/19 09:00 06/22/19 09:35 Aspirin (Aspirin Chewable) 81 mg DAILY PO 06/21/19 09:00 06/22/19 09:35 Azathioprine (Imuran) 100 mg DAILY PO 06/21/19 09:00 06/22/19 09:38 Bisacodyl (Dulcolax Suppository) 10 mg DAILYPRN PRN [place] CONSTIPATION 06/20/19 17:00 Calcitriol (Rocaltrol) 0.25 mcg MoTuWeThFr@0900 PO 06/21/19 09:00 06/22/19 09:35 Cyclobenzaprine HCl (Flexeril) 10 mg Q8HP PRN PO SPASMS 06/20/19 17:00 06/21/19 14:04 DC Diazepam (Valium) 2 mg Q12HP PRN PO ANXIETY 06/20/19 17:00 06/22/19 11:20 Digoxin (Lanoxin) 0.25 mg DAILY PO 06/21/19 09:00 06/22/19 09:36 Docusate Sodium (Colace) 100 mg BID PO 06/20/19 21:00 06/22/19 09:35 Gabapentin (Neurontin) 300 mg BID@0900,1600 PO 06/21/19 09:00 06/22/19 09:36 Gabapentin (Neurontin) 600 mg QHS PO 06/20/19 21:00 06/21/19 20:47 Home Med (Med Rec Complete!) ASDIRECTED XX 06/20/19 18:00 06/20/19 18:08 DC Hydroxyzine HCl (Atarax) 25 mg Q6HP PRN PO ANXIETY 06/20/19 17:00 Magnesium Gluconate (Magnesium Gluconate) 500 mg QID PO 06/21/19 13:00 06/22/19 13:06 Magnesium Hydroxide (Milk Of Magnesia) 30 ml DAILYPRN PRN PO CONSTIPATION 06/20/19 17:00 Miscellaneous (Unresolved Patient Own Med Order) SEE LABEL COMMENTS DAILY XX 06/20/19 09:00 06/21/19 14:50 DC Ondansetron HCl (Zofran Odt) 4 mg Q6HP PRN PO NAUSEA OR VOMITING 06/20/19 17:00 Oxycodone HCl (Roxicodone, Oxyir) 5 mg Q6HP PRN PO PAIN 06/20/19 17:00 06/22/19 11:20 Pantoprazole Sodium (Protonix) 40 mg DAILY PO 06/21/19 09:00 06/22/19 09:36 Patient Own Medication (Patient'S Own Med) TAKE 3 TABLETS BY MOUTH DAILY DAILY@0900 PO 06/22/19 09:00 06/22/19 09:34 Potassium Chloride (Micro-K Extencaps) 10 meq DAILY PO 06/21/19 09:00 06/22/19 09:35 Prednisone (Deltasone) 5 mg DAILY PO 06/21/19 09:00 06/22/19 09:35 Senna (Senokot) 1 tab QHS PO 06/20/19 21:00 06/21/19 20:47 Torsemide (Demadex) 10 mg DAILY PO 06/21/19 09:00 06/22/19 09:35 Trimethoprim/ Sulfamethoxazole (Bactrim Ds, Septra Ds 160mg/ 800mg) 1 tab BID PO 06/21/19 09:00 06/22/19 09:36 Vitamin B Complex/ Vitamin C (Therapeutic B Complex w/C) 1 cap DAILY PO 06/21/19 09:00 06/22/19 09:35 FARHAN LAMAR MD Jun 22, 2019 13:49
--- NOTE | 2019-06-22 13:55 | IPNPDOC ---
PM&R Progress Note DATE OF SERVICE: Jun 22, 2019 [facility] Progress Note Subjective: Patient seen this morning stating he feels well, but would like to take Valium 3 times a day as he usually does. REVIEW OF SYSTEMS: The following is a completed review of systems and has been reviewed. Review of systems otherwise unremarkable. PAIN: Patient self reports low back pain EYES: No recent vision changes EARS, NOSE, & THROAT: No throat pain, or dysphagia, or rhinorrhea CARDIOVASCULAR: Denies chest pain or palpitations PULMONARY: Denies shortness of breath GASTROINTESTINAL: Denies constipation/diarrhea GENITOURINARY: +dysuria with retention MUSCULOSKELETAL: +cervical and lumbar stenosis NEUROLOGICAL:no focal tremor or seizure activity HEMATOLOGICAL: +easy bruising SKIN: lumbar incision PSYCHIATRIC: Unremarkable All other review of systems found to be negative. PHYSICAL EXAMINATION: VITAL SIGNS: Please see below. GENERAL: Pleasant and cooperative. No acute distress. HEENT: PERRL. Extraocular movements intact. Clear conjunctiva CARDIOVASCULAR: Irregular rate and rhythm. No murmurs, rubs, or gallops LUNGS: Clear to auscultation bilaterally. No wheezes. No rhonchi ABDOMEN: Soft, nontender, nondistended. Positive bowel sounds. NEUROLOGICAL: Alert and oriented times three. Cranial nerves II through XII grossly intact. Sensation grossly intact in all 4 extremities EXTREMITIES: 4\5 strength bilateral upper extremities. 4-\5 strength right lower extremity. 4+/5 strength in left lower extremity. +bilateral calf edema left>right SKIN: lumbar incision and drain mildly erythematous, no induration LUE old AV fistula ASSESSMENT:74-year-old M with past medical history of IgA nephropathy s/p kidney transplant, lumbar stenosis with claudication who presents status post L4-5 laminectomy. PLAN: 1. rehab- PT strengthen/stretch/maintain ROM bilat LE, improve gait endurance, dynamic balance training, stairs, fall recovery- spinal precautions OT strengthen/stretch/maintain ROM bilat UE, improve coordination for optimal ADL management maintaining spinal precautions 2. Neuro/Ortho- patient s/p L4-L5 laminectomy with psh of multiple spine surgeries for cervical myelopathy and spinal stenosis with gait and balance impairment with recurrent falls -f/u neurosurgery 06-28-19 3. Cardio: pmh Afib currently on digoxin started at [facility] , beta-violette held at [facility] due to drops in BP -Mod-severe aortic stenosis c/u amiloride and Torsemide, medicine consulted to assist in management 4. Resp: encourage incentive spirometry and monitor for infection 5. Renal: s/p kidney transplant 2006 c/u prednisone, sirolimus, azathioprine -ok to use left arm for BPs as fistula is inactive -renal following, recs appreciated, CT abdomen-pelvis ordered per Dr. Alcantar 6. GI ppx: protonix, optimize bowel meds 7. DVT ppx: TEDs, +DVT RUE treatment on hold until cleared by neurosurgery 8. Pain: Tylenol, oxycodone prn, valium, gabapentin 9. : patient had +Ucx for E coli and received 4 days of Bactrim with partial resolution of symptoms, continue Bactrim for total dosing 14 days given complicated UTI- will monitor Specialist Physicians while on this med 10. ID: given immunocompromised state checking Blood cultures in addition to repeat UA and Ucx 10. Dispo: TBD Allergies Coded Allergies: ciprofloxacin (Verified Allergy, Unknown, 12/20/18) amoxicillin (Verified Adverse Reaction, Intermediate, can take few prior to dentist but can not take for 10 days, 12/20/18) pregabalin (Verified Adverse Reaction, Intermediate, UNKNOWN, 12/20/18) tizanidine (Verified Adverse Reaction, Intermediate, 12/20/18) Quinolones (Verified Adverse Reaction, Mild, ANXIETY, 12/20/18) cefuroxime (Verified Adverse Reaction, Mild, ANXIETY, 12/20/18) codeine (Verified Adverse Reaction, Mild, AGITATION, 12/20/18) lorazepam (Verified Adverse Reaction, Mild, AGITATION, 12/20/18) Vital Signs Vital Signs Date Time Temp Pulse Resp B/P (MAP) Pulse Ox O2 Delivery O2 Flow Rate FiO2 06/22/19 11:50 18 06/22/19 09:36 68 06/22/19 06:00 98.8 94/55 (68) 96 Laboratory Data Labs 24H Laboratory Tests 2 06/21/19 23:41: Urine Color YELLOW, Urine Appearance HAZY, Urine pH 7.0, Urine Specific [place] 1.011, Urine Protein NEGATIVE, Urine Glucose (UA) NEGATIVE, Urine Ketones NEGATIVE, Urine Blood NEGATIVE, Urine Nitrite NEGATIVE, Urine Bilirubin NEGATIVE, Urine Urobilinogen 4.0H, Urine Leukocyte Esterase 1+H, Urine WBC (Auto) 14H, Urine RBC (Auto) 9H, Urine Hyaline Casts (Auto) 0, Urine Bacteria (Auto) NEGATIVE, Urine Squamous Epithelial Cells 1, Urine Sperm (Auto) Microbiology Microbiology 06/21/19 Urine Culture, Received Pending 06/21/19 Blood Culture - Preliminary, Resulted No growth after 24 hours . All specim... 06/21/19 Blood Culture - Preliminary, Resulted No growth after 24 hours . All specim... Current Medications Current Medications Current Medications Medications (Trade) Dose Ordered Sig/Dionte Route PRN Reason Start Time Stop Time Status Last Admin Dose Admin Acetaminophen (Tylenol Tab) 650 mg Q4HP PRN PO fever/MILD PAIN (PS 1-4) 06/20/19 17:00 Amiloride HCl (Midamor) 5 mg DAILY PO 06/21/19 09:00 06/22/19 09:35 Aspirin (Aspirin Chewable) 81 mg DAILY PO 06/21/19 09:00 06/22/19 09:35 Azathioprine (Imuran) 100 mg DAILY PO 06/21/19 09:00 06/22/19 09:38 Bisacodyl (Dulcolax Suppository) 10 mg DAILYPRN PRN [place] CONSTIPATION 06/20/19 17:00 Calcitriol (Rocaltrol) 0.25 mcg MoTuWeThFr@0900 PO 06/21/19 09:00 06/22/19 09:35 Cyclobenzaprine HCl (Flexeril) 10 mg Q8HP PRN PO SPASMS 06/20/19 17:00 06/21/19 14:04 DC Diazepam (Valium) 2 mg Q12HP PRN PO ANXIETY 06/20/19 17:00 06/22/19 11:20 Digoxin (Lanoxin) 0.25 mg DAILY PO 06/21/19 09:00 06/22/19 09:36 Docusate Sodium (Colace) 100 mg BID PO 06/20/19 21:00 06/22/19 09:35 Gabapentin (Neurontin) 300 mg BID@0900,1600 PO 06/21/19 09:00 06/22/19 09:36 Gabapentin (Neurontin) 600 mg QHS PO 06/20/19 21:00 06/21/19 20:47 Home Med (Med Rec Complete!) ASDIRECTED XX 06/20/19 18:00 06/20/19 18:08 DC Hydroxyzine HCl (Atarax) 25 mg Q6HP PRN PO ANXIETY 06/20/19 17:00 Magnesium Gluconate (Magnesium Gluconate) 500 mg QID PO 06/21/19 13:00 06/22/19 13:06 Magnesium Hydroxide (Milk Of Magnesia) 30 ml DAILYPRN PRN PO CONSTIPATION 06/20/19 17:00 Miscellaneous (Unresolved Patient Own Med Order) SEE LABEL COMMENTS DAILY XX 06/20/19 09:00 06/21/19 14:50 DC Ondansetron HCl (Zofran Odt) 4 mg Q6HP PRN PO NAUSEA OR VOMITING 06/20/19 17:00 Oxycodone HCl (Roxicodone, Oxyir) 5 mg Q6HP PRN PO PAIN 06/20/19 17:00 06/22/19 11:20 Pantoprazole Sodium (Protonix) 40 mg DAILY PO 06/21/19 09:00 06/22/19 09:36 Patient Own Medication (Patient'S Own Med) TAKE 3 TABLETS BY MOUTH DAILY DAILY@0900 PO 06/22/19 09:00 06/22/19 09:34 Potassium Chloride (Micro-K Extencaps) 10 meq DAILY PO 06/21/19 09:00 06/22/19 09:35 Prednisone (Deltasone) 5 mg DAILY PO 06/21/19 09:00 06/22/19 09:35 Senna (Senokot) 1 tab QHS PO 06/20/19 21:00 06/21/19 20:47 Torsemide (Demadex) 10 mg DAILY PO 06/21/19 09:00 06/22/19 09:35 Trimethoprim/ Sulfamethoxazole (Bactrim Ds, Septra Ds 160mg/ 800mg) 1 tab BID PO 06/21/19 09:00 06/22/19 09:36 Vitamin B Complex/ Vitamin C (Therapeutic B Complex w/C) 1 cap DAILY PO 06/21/19 09:00 06/22/19 09:35 FARHAN LAMAR MD Jun 22, 2019 13:55
[2019-06-22 14:00] VITALS: BP 122/80
--- NOTE | 2019-06-22 15:48 | IPNPDOC ---
Text Note Date of Service The patient was seen on 06/22/19. NOTE Subjective: Patient is a 74-year-old male with a PMHx of CAD, Aortic stenosis, Atrial fibrillation (s/p Coumadin), HTN, DLP, IgA Nephropathy (s/p Renal transplant 2006, s/p ESRD on HD), Multiple spinal surgeries, Multiple ventral hernia repairs, Neuropathy, Iron deficiency anemia, Osteoporosis, GERD who was transferred from [facility] after receiving a laminectomy on 06/11/2019. Patient has had a complicated course of multiple hospitalizations. Patient initially presented to [facility] on 05/15/2019 and had complained of back pain after experiencing a fall. Patient was evaluated by hospitalist service as well as orthopedic surgery who had recommended the patient be transferred to a higher level of care. Patient was ultimately transferred to [facility] where he was managed by his own neurosurgeon, Dr. Mccartney. Patient remains as an inpatient for 1 week duration and was subsequent discharged home. Patient again experience a fall on June 05 while he was at home. This slowly progressed to worsening pain and difficulty walking. By June 07. Patient was unable to walk and was transported to [facility] where his found to have multiple acute on chronic vertebral fractures. Patient was admitted to [facility] where he received MRI, CT scan and x-ray imaging, which are consistent with acute on chronic spinal injury. There was compression of L4-L5 spine. Laminectomy was successfully completed on 06/11/2019. After the procedure, neurosurgery had recommended that patient be kept off of his anticoagulation with Coumadin for 2 weeks following the surgery. Patients hospital course was complicated with the development of a urinary tract infection and urinary retention. Patient did receive a Villa catheter that was subsequent the removed. . He was also treated for an Escherichia coli urinary tract infection with Bactrim for 3 days duration. Patient had developed atrial fibrillation with rapid ventricular response and was hypotensive. Patient was transitioned from metoprolol to digoxin and has remained well controlled since that point. On 06/17/2019 patient was found to have a right upper extremity DVT as a result of the midline that was placed Coumadin and anticoagulation is being held until 2 weeks after procedure. Currently, patient was transferred to [facility] on 06/20/2019 for continued physical therapy and rehabilitation. Hospital services consultation for further medical management. Patient was seen and examined at the bedside. Is seen sitting up in chair, working with physical therapy. Denies chest pain, shortness of breath or palpitations. He does report some extremity swelling. He denies any nausea, vomiting, abdominal pain, diarrhea, or urinary discomfort. Objective: Vitals (See below) General: Lying in bed, no acute distress, comfortable, AAOx3 HEENT: NC, AT CVS: RRR, +S1S2 Lungs: Fair air entry b/l, no appreciable wheezing, rhonchi or rales Abdomen: Soft, ND, NT Extremities: 1+ pitting edema bilaterally, - Calf tenderness Assessment and plan: Multiple vertebral fractures - 2/ mechanical fall - Patient was noted to have L4-6 and T11-T12 compression fractures, status post laminectomy 06/11/2019 - Patient has been transferred by [facility] neurosurgical team for continued physical therapy and rehabilitation - As per neurosurgical team recommendations; Anticoagulation will be held for 2 weeks duration from the point of surgery; patient will be reevaluated by their team prior to anticoagulation restarting - Pain control and bowel regimen as per ARU - Patient will continue with physical therapy and occupation therapy at the direction of ARU Atrial fibrillation - Currently, patient appears to be rate and rhythm control - Patient was taken off of metoprolol because of hypotension - c/w rate / rhythm control with Digoxin - Will check Digoxin level in AM; will adjust dose of digoxin accordingly - Full anticoagulation with Coumadin will be held until 2 weeks after procedure; patient will be reevaluated by neurosurgical team - Again risks and benefits about holding anticoagulation in this setting have been discussed thoroughly with patient, and daughter - they have verbalized understanding of holding anticoagulation in the setting IgA Nephropathy - s/p Renal transplant 2006 - s/p ESRD on HD - c/w Prednisone, Sirolimus and Azathioprine - Patient follows with Dr. Katharine KHANNA DVT - Patient was found to have a DVT of his right upper extremity on 06/17/2019 at [facility], as a result of the midline - Currently neurosurgical team would like to hold off on anticoagulation until 2 weeks after procedure - Again risks and benefits about holding anticoagulation in this setting have been discussed thoroughly with patient, and daughter - they have verbalized understanding of holding anticoagulation in the setting Aortic stenosis - Clinically patient appears to have signs of fluid overload - Lower extremities do reveal 1+ pitting edema - ECHO 06/21: Preserved EF, unable to evaluate diastolic function, dilated right atrium, normal IVC size and collapsed against an elevated CVP, moderately severe ASA, mildmoderate AR, - c/w Torsemide 10 and Amiloride 5; will increase frequency of torsemide to BID for single day - Return back to Torsemide 10 daily thereafter HTN - Blood pressure is well controlled CAD - c/w ASA 81 DLP - Currently not on medications Neuropathy - c/w Gabapentin Iron deficiency anemia - Will follow Hg trend Anxiety - c/w Hydroxyzine and Diazepam GERD - c/w Protonix DVT prophylaxis - c/w TEDs/Sequentials VS,Fishbone, I+O VS, Fishbone, I+O Vital Signs Date Time Temp Pulse Resp B/P (MAP) Pulse Ox O2 Delivery O2 Flow Rate FiO2 06/22/19 14:00 97.7 91 16 122/80 (94) 90 I&O- Last 24 Hours up to 6 AM 06/22/19 05:59 Intake Total 840 ml Output Total 1125 ml Balance -285 ml JOVANY LEMONS MD Jun 22, 2019 15:48
[2019-06-22] MEDS: diazePAM 2 MG TAB PO SCH ×2 (16:03→20:46)
[2019-06-22] MEDS: ACETAMINOPHEN 500 MG TAB PO SCH ×2 (16:04→20:44)
[2019-06-22 20:00] VITALS: BP 113/58
[2019-06-22] MEDS: SENNA 8.6 MG TAB (SENOKOT) PO SCH (20:44)
[2019-06-22] MEDS ORDERED: TORSEMIDE 10 MG TABLET PO ONE (21:00)
[2019-06-23 06:57] LABS: BASO % 0.3 % (0.0-1.0); EOS % 0.6 % (0.0-3.0); HEMATOCRIT 28.5 % (42.0-52.0); HEMOGLOBIN 9.1 g/dl (13.5-17.5); LYMPH # 1.7 10^3/uL (1.5-5.0); MEAN CORPUSCULAR HEMOGLOBIN 29.6 pg (27.0-33.0); MEAN CORPUSCULAR HGB CONC 31.9 g/dl (32.0-36.5); MEAN CORPUSCULAR VOLUME 92.8 fl (80.0-96.0); MONO # 0.9 10^3/uL (0.0-0.8); MONO % 14.4 % (0.0-5.0); NEUTROPHILS # 3.6 10^3/uL (1.5-8.5); NEUTROPHILS % 54.6 % (36.0-66.0); PLATELET COUNT, AUTOMATED 343 10^3/uL (150-450); RED BLOOD COUNT 3.07 10^6/uL (4.30-6.10); WHITE BLOOD COUNT 6.5 10^3/uL (4.0-10.0)
[2019-06-23 07:35] LABS: BLOOD UREA NITROGEN 13 MG/DL (7-18); CALCIUM LEVEL 9.6 MG/DL (8.8-10.2); CARBON DIOXIDE LEVEL 26 MEQ/L (21-32); CHLORIDE LEVEL 106 MEQ/L (98-107); CREATININE FOR GFR 0.81 MG/DL (0.70-1.30); DIGOXIN LEVEL 0.9 NG/ML (0.5-2.0); GLOMERULAR FILTRATION RATE > 60.0 (>42); GLUCOSE, FASTING 110 MG/DL (70-100); MAGNESIUM LEVEL 1.7 MG/DL (1.8-2.4); POTASSIUM SERUM 3.8 MEQ/L (3.5-5.1); SODIUM LEVEL 139 MEQ/L (136-145)
[2019-06-23] MEDS: ASPIRIN 81 MG CHEW TABLET PO SCH (08:03)
[2019-06-23] MEDS: DIGOXIN 0.25 MG TAB PO SCH (08:03)
[2019-06-23] MEDS: SIROLIMUS PO SCH (08:03)
[2019-06-23] MEDS: BACTRIM 160MG/800MG DS TAB PO SCH ×2 (08:03→20:28)
[2019-06-23] MEDS: MAGNESIUM GLUCONATE 500 MG TAB PO SCH ×4 (08:03→20:29)
[2019-06-23] MEDS: predniSONE 5 MG TAB PO SCH (08:04)
[2019-06-23] MEDS: GABAPENTIN 300 MG CAP PO SCH ×3 (08:04→20:29)
[2019-06-23] MEDS: TORSEMIDE 10 MG TABLET PO SCH (08:04)
[2019-06-23] MEDS: PANTOPRAZOLE 40MG TAB (PROTONIX) PO SCH (08:04)
[2019-06-23] MEDS: diazePAM 2 MG TAB PO SCH ×3 (08:04→20:29)
[2019-06-23] MEDS: VITAMIN B COMPLEX/VIT C CAP PO SCH (08:04)
[2019-06-23] MEDS: aMILoride 5 MG TAB PO SCH (08:04)
[2019-06-23] MEDS: POTASSIUM CHLORIDE 10 MEQ SR TABLET PO SCH (08:04)
[2019-06-23] MEDS: oxyCODONE 5MG TAB PO PRN ×3 (08:05→21:40)
[2019-06-23] MEDS: ACETAMINOPHEN 500 MG TAB PO SCH ×3 (08:06→20:28)
[2019-06-23] MEDS: DOCUSATE SODIUM 100 MG CAP PO SCH ×2 (08:06→20:29)
[2019-06-23] MEDS: azaTHIOprine 50 MG TAB (J7500) PO SCH (08:06)
[2019-06-23 12:48] LABS: FERRITIN 893 NG/ML (26-388); IRON (FE) 45 UG/DL (65-175); PERCENT SATURATION 29.8 % (19.7-50.0); TOTAL IRON BINDING CAPACITY 151 UG/DL (250-450)
[2019-06-23] MEDS ORDERED: MAGNESIUM OXIDE 400 MG TAB (MAG-OX) PO ONE (13:00)
[2019-06-23 14:00] VITALS: BP 119/83
--- NOTE | 2019-06-23 15:05 | IPN ---
DATE: 06/23/2019 SUBJECTIVE: The patient was seen and examined at the bedside today morning at the rehabilitation unit. He was sitting in the sofa. He had just come back after doing the physical therapy. The patient denies any active complaints. His renal functions are stable. He is hemodynamically stable. OBJECTIVE: Vital signs: Temperature is 97.5 degrees Fahrenheit, fundi blood pressure 113/58, pulses is 87, respiratory of 18, saturating 100% on room air. Intake and output: Urine output recorded is 1500 mL yesterday, 250 mL so far today since overnight. Weight in the bed scale is not available. PHYSICAL EXAMINATION: GENERAL: The patient is awake, alert, oriented times three, sitting up in the sofa in no apparent distress. HEAD AND NECK: Extraocular muscles intact. The patient is wearing a soft collar at the neck. CARDIOVASCULAR: S1, S2, regular rate. Edema 1+ of the bilateral lower extremities. RESPIRATORY: Chest is clear to auscultation bilaterally. Bilateral equal air entry. No rales or rhonchi. ABDOMEN: Soft, positive bowel sounds. Nontender. MUSCULOSKELETAL: No clubbing or cyanosis. Pulses are 2+. Edema 1+ of the bilateral extremities. CENTRAL NERVOUS SYSTEM: No focal deficit. The patient is able to move extremities. LABORATORY REVIEW: CBC showed WBC 6.5, hemoglobin is 9.1, platelets are 343. BMP showed sodium 139, potassium 3.8, chloride 106, bicarbonate 26, BUN 13, creatinine is 0.81, magnesium 1.7. Microbiology: Urine culture is negative. CURRENT INPATIENT MEDICATIONS: The patient's medications were all reviewed by me, and there is no significant change in the medications today as compared with yesterday. He continues to be on torsemide 10 mg by mouth daily ASSESSMENT AND PLAN: 1. Renal allograft status. The patient has very good renal function. Creatinine has been stable. Continue current dose of prednisone, azathioprine, and sirolimus. 2. Paroxysmal atrial fibrillation. It is rate control with digoxin. He is not on anticoagulation because of recent surgery. 3. Chronic hypomagnesemia. The patient continues to be on high dose of magnesium. Hypomagnesemia is secondary to use of immunosuppression for renal transplant. 4. Anemia. Hemoglobin is 9.1. I am going to add on the iron levels with today's labs. 5. Lower extremity edema. Continue current dose of torsemide 10 mg by mouth daily and amiloride 5 mg by mouth daily.
[2019-06-23 20:00] VITALS: BP 138/81
[2019-06-23] MEDS: SENNA 8.6 MG TAB (SENOKOT) PO SCH (20:29)
[2019-06-24] MEDS: oxyCODONE 5MG TAB PO PRN ×4 (03:42→23:24)
[2019-06-24 06:00] VITALS: BP 108/66
[2019-06-24] MEDS: BACTRIM 160MG/800MG DS TAB PO SCH ×2 (09:57→20:31)
[2019-06-24] MEDS: azaTHIOprine 50 MG TAB (J7500) PO SCH (09:57)
[2019-06-24] MEDS: VITAMIN B COMPLEX/VIT C CAP PO SCH (09:57)
[2019-06-24] MEDS: SIROLIMUS PO SCH (09:58)
[2019-06-24] MEDS: PANTOPRAZOLE 40MG TAB (PROTONIX) PO SCH (09:58)
[2019-06-24] MEDS: predniSONE 5 MG TAB PO SCH (09:58)
[2019-06-24] MEDS: DOCUSATE SODIUM 100 MG CAP PO SCH ×2 (09:58→20:31)
[2019-06-24] MEDS: POTASSIUM CHLORIDE 10 MEQ SR TABLET PO SCH (09:58)
[2019-06-24] MEDS: TORSEMIDE 10 MG TABLET PO SCH (09:58)
[2019-06-24] MEDS: aMILoride 5 MG TAB PO SCH (09:58)
[2019-06-24] MEDS: MAGNESIUM GLUCONATE 500 MG TAB PO SCH ×4 (09:58→20:32)
[2019-06-24] MEDS: ASPIRIN 81 MG CHEW TABLET PO SCH (09:58)
[2019-06-24] MEDS: GABAPENTIN 300 MG CAP PO SCH ×3 (09:58→20:31)
[2019-06-24] MEDS: diazePAM 2 MG TAB PO SCH ×3 (09:58→20:31)
[2019-06-24] MEDS: ACETAMINOPHEN 500 MG TAB PO SCH ×3 (09:59→20:32)
[2019-06-24] MEDS: DIGOXIN 0.25 MG TAB PO SCH (10:01)
[2019-06-24 14:00] VITALS: BP 128/78
--- NOTE | 2019-06-24 14:29 | IPNPDOC ---
Text Note Date of Service The patient was seen on 06/24/19. NOTE Subjective: Patient is a 74-year-old male with a PMHx of CAD, Aortic stenosis, Atrial fibrillation (s/p Coumadin), HTN, DLP, IgA Nephropathy (s/p Renal transplant 2006, s/p ESRD on HD), Multiple spinal surgeries, Multiple ventral hernia repairs, Neuropathy, Iron deficiency anemia, Osteoporosis, GERD who was transferred from [facility] after receiving a laminectomy on 06/11/2019. Patient has had a complicated course of multiple hospitalizations. Patient initially presented to [facility] on 05/15/2019 and had complained of back pain after experiencing a fall. Patient was evaluated by hospitalist service as well as orthopedic surgery who had recommended the patient be transferred to a higher level of care. Patient was ultimately transferred to [facility] where he was managed by his own neurosurgeon, Dr. Mccartney. Patient remains as an inpatient for 1 week duration and was subsequent discharged home. Patient again experience a fall on June 05 while he was at home. This slowly progressed to worsening pain and difficulty walking. By June 07. Patient was unable to walk and was transported to [facility] where his found to have multiple acute on chronic vertebral fractures. Patient was admitted to [facility] where he received MRI, CT scan and x-ray imaging, which are consistent with acute on chronic spinal injury. There was compression of L4-L5 spine. Laminectomy was successfully completed on 06/11/2019. After the procedure, neurosurgery had recommended that patient be kept off of his anticoagulation with Coumadin for 2 weeks following the surgery. Patients hospital course was complicated with the development of a urinary tract infection and urinary retention. Patient did receive a Villa catheter that was subsequent the removed. . He was also treated for an Escherichia coli urinary tract infection with Bactrim for 3 days duration. Patient had developed atrial fibrillation with rapid ventricular response and was hypotensive. Patient was transitioned from metoprolol to digoxin and has remained well controlled since that point. On 06/17/2019 patient was found to have a right upper extremity DVT as a result of the midline that was placed Coumadin and anticoagulation is being held until 2 weeks after procedure. Currently, patient was transferred to [facility] on 06/20/2019 for continued physical therapy and rehabilitation. Hospital services consultation for further medical management. Patient was seen and examined at the bedside. Patient was taking a nap in his recliner. Patient reports that he has been urinating frequently after receiving an additional dose of diuretic yesterday. He reports that he still experiences of LE swelling. Denies any chest pain, shortness of breath or palpitations. Denies nausea, vomiting, abdominal pain or diarrhea. Objective: Vitals (See below) General: Lying in bed, no acute distress, comfortable, AAOx3 HEENT: NC, AT CVS: +S1S2 Lungs: Air entry remains fair bilaterally, without any auscultated rales or Abdomen: Abdomen is soft without distention, tenderness Extremities: Pitting edema at 1+ bilaterally, - Calf tenderness Assessment and plan: Multiple vertebral fractures - 2/2 mechanical fall - Patient was noted to have L4-6 and T11-T12 compression fractures, status post laminectomy 06/11/2019 - Patient has been transferred by [facility] neurosurgical team for continued physical therapy and rehabilitation - As per neurosurgical team recommendations; Anticoagulation will be held for 2 weeks duration from the point of surgery; patient will be reevaluated by their team prior to anticoagulation restarting - Pain control and bowel regimen as per ARU - Patient will continue with physical therapy and occupation therapy at the direction of ARU Atrial fibrillation - Currently, patient appears to be rate and rhythm control - Patient was taken off of metoprolol because of hypotension - c/w rate / rhythm control with Digoxin - Digoxin levels have been appropriate - will check level again on 06/25/19 - Full anticoagulation with Coumadin will be held until 2 weeks after procedure; patient will be reevaluated by neurosurgical team - Again risks and benefits about holding anticoagulation in this setting have been discussed thoroughly with patient, and daughter - they have verbalized understanding of holding anticoagulation in the setting IgA Nephropathy - s/p Renal transplant 2006 - s/p ESRD on HD - c/w Prednisone, Sirolimus and Azathioprine - Patient follows with Dr. Katharine KHANNA DVT - Patient was found to have a DVT of his right upper extremity on 06/17/2019 at [facility], as a result of the midline - Currently neurosurgical team would like to hold off on anticoagulation until 2 weeks after procedure - Again risks and benefits about holding anticoagulation in this setting have been discussed thoroughly with patient, and daughter - they have verbalized understanding of holding anticoagulation in the setting Aortic stenosis - Clinically patient appears to have signs of fluid overload - Lower extremities do reveal 1+ pitting edema - ECHO 06/21: Preserved EF, unable to evaluate diastolic function, dilated right atrium, normal IVC size and collapsed against an elevated CVP, moderately severe ASA, mildmoderate AR, - c/w Torsemide 10 and Amiloride 5; was given additional dose of diuretic on 06/23 with improved diuresis - Return back to Torsemide 10 daily thereafter HTN - Blood pressure is well controlled CAD - c/w ASA 81 DLP - Currently not on medications Neuropathy - c/w Gabapentin Iron deficiency anemia - Will follow Hg trend Anxiety - c/w Hydroxyzine and Diazepam GERD - c/w Protonix DVT prophylaxis - c/w TEDs/Sequentials Disposition: - Will consider giving additional dose of diuresis tomorrow if required VS,Fishbone, I+O VS, Fishbone, I+O Vital Signs Date Time Temp Pulse Resp B/P (MAP) Pulse Ox O2 Delivery O2 Flow Rate FiO2 06/24/19 14:00 97.9 71 18 128/78 (95) 95 I&O- Last 24 Hours up to 6 AM 06/24/19 06:00 Intake Total 1800 ml Output Total 1200 ml Balance 600 ml JOVANY LEMONS MD Jun 24, 2019 14:29
[2019-06-24 20:00] VITALS: BP 93/55
[2019-06-24] MEDS: SENNA 8.6 MG TAB (SENOKOT) PO SCH (20:31)
[2019-06-24] MEDS: ONDANSETRON 4 MG ORAL DISINTEGRATING TAB (Q0162 PER 1MG) PO PRN (23:23)
[2019-06-25 06:00] VITALS: BP 101/54
[2019-06-25] MEDS: oxyCODONE 5MG TAB PO PRN (06:55)
[2019-06-25 07:36] LABS: DIGOXIN LEVEL 1.1 NG/ML (0.5-2.0)
[2019-06-25] MEDS: diazePAM 2 MG TAB PO SCH ×3 (08:30→21:34)
[2019-06-25] MEDS: PANTOPRAZOLE 40MG TAB (PROTONIX) PO SCH (08:30)
[2019-06-25] MEDS: DIGOXIN 0.25 MG TAB PO SCH (08:30)
[2019-06-25] MEDS: TORSEMIDE 10 MG TABLET PO SCH (08:30)
[2019-06-25] MEDS: ASPIRIN 81 MG CHEW TABLET PO SCH (08:30)
[2019-06-25] MEDS: GABAPENTIN 300 MG CAP PO SCH ×3 (08:30→21:33)
[2019-06-25] MEDS: DOCUSATE SODIUM 100 MG CAP PO SCH ×2 (08:30→21:33)
[2019-06-25] MEDS: ACETAMINOPHEN 500 MG TAB PO SCH ×3 (08:31→21:33)
[2019-06-25] MEDS: azaTHIOprine 50 MG TAB (J7500) PO SCH (08:31)
[2019-06-25] MEDS: POTASSIUM CHLORIDE 10 MEQ SR TABLET PO SCH (08:31)
[2019-06-25] MEDS: predniSONE 5 MG TAB PO SCH (08:31)
[2019-06-25] MEDS: CALCITRIOL 0.25 MCG CAP (S0169) PO SCH (08:32)
[2019-06-25] MEDS: MAGNESIUM GLUCONATE 500 MG TAB PO SCH ×4 (08:32→21:33)
[2019-06-25] MEDS: VITAMIN B COMPLEX/VIT C CAP PO SCH (08:32)
[2019-06-25] MEDS: BACTRIM 160MG/800MG DS TAB PO SCH ×2 (08:32→21:33)
[2019-06-25] MEDS: aMILoride 5 MG TAB PO SCH (08:35)
[2019-06-25] MEDS: SIROLIMUS PO SCH (08:43)
[2019-06-25] MEDS: ONDANSETRON 4 MG ORAL DISINTEGRATING TAB (Q0162 PER 1MG) PO PRN (09:42)
[2019-06-25 10:17] LABS: HEMOGLOBIN 10.2 g/dl (13.5-17.5); MEAN CORPUSCULAR HEMOGLOBIN 28.7 pg (27.0-33.0); MEAN CORPUSCULAR HGB CONC 30.9 g/dl (32.0-36.5); MEAN CORPUSCULAR VOLUME 92.7 fl (80.0-96.0); PLATELET COUNT, AUTOMATED 467 10^3/uL (150-450); RED BLOOD COUNT 3.56 10^6/uL (4.30-6.10); WHITE BLOOD COUNT 7.5 10^3/uL (4.0-10.0)
[2019-06-25 10:30] LABS: BLOOD UREA NITROGEN 11 MG/DL (7-18); CALCIUM LEVEL 10.5 MG/DL (8.8-10.2); CARBON DIOXIDE LEVEL 26 MEQ/L (21-32); CHLORIDE LEVEL 106 MEQ/L (98-107); CREATININE FOR GFR 0.75 MG/DL (0.70-1.30); GLOMERULAR FILTRATION RATE > 60.0 (>42); GLUCOSE, FASTING 102 MG/DL (70-100); SODIUM LEVEL 140 MEQ/L (136-145)
[2019-06-25 14:00] VITALS: BP 118/67
[2019-06-25] MEDS: oxyCODONE 5MG TAB PO SCH ×2 (15:18→21:34)
[2019-06-25] MEDS: ANALGESIC BALM CRM 120 GM TOP SCH ×3 (15:19→22:27)
[2019-06-25 19:55] VITALS: BP 103/63
[2019-06-25] MEDS: SENNA 8.6 MG TAB (SENOKOT) PO SCH (21:34)
[2019-06-25] MEDS: hydrOXYzine 25 MG TAB PO PRN (22:27)
[2019-06-26] MEDS ORDERED: oxyCODONE 5MG TAB PO ONE (02:30)
[2019-06-26 06:00] VITALS: BP 106/58
[2019-06-26 07:14] LABS: HEMATOCRIT 31.3 % (42.0-52.0); MEAN CORPUSCULAR HGB CONC 31.9 g/dl (32.0-36.5); PLATELET COUNT, AUTOMATED 415 10^3/uL (150-450); RED BLOOD COUNT 3.33 10^6/uL (4.30-6.10)
[2019-06-26 07:38] LABS: ALBUMIN 2.7 GM/DL (3.2-5.2); BLOOD UREA NITROGEN 12 MG/DL (7-18); CALCIUM LEVEL 10.2 MG/DL (8.8-10.2); CARBON DIOXIDE LEVEL 26 MEQ/L (21-32); CHLORIDE LEVEL 106 MEQ/L (98-107); CREATININE FOR GFR 0.75 MG/DL (0.70-1.30); GLOMERULAR FILTRATION RATE > 60.0 (>42); GLUCOSE, FASTING 96 MG/DL (70-100); PHOSPHORUS LEVEL 2.4 MG/DL (2.5-4.9); POTASSIUM SERUM 4.4 MEQ/L (3.5-5.1); SODIUM LEVEL 141 MEQ/L (136-145)
[2019-06-26 08:30] LABS: ANISOCYTOSIS 1+; EOSINOPHILS 2 % (0-3); LYMPHOCYTES 29 % (16-44); METAMYELOCYTES 1 % (0-0); MONOCYTES 6 % (0-5); MYELOCYTES 3 % (0-0); NEUTROPHILS 58 % (28-66); PLATELET ESTIMATE NORMAL (NORMAL)
[2019-06-26] MEDS: SIROLIMUS PO SCH (08:31)
[2019-06-26] MEDS: azaTHIOprine 50 MG TAB (J7500) PO SCH (08:32)
[2019-06-26] MEDS: diazePAM 2 MG TAB PO SCH ×3 (08:32→21:46)
[2019-06-26] MEDS: aMILoride 5 MG TAB PO SCH (08:32)
[2019-06-26] MEDS: PANTOPRAZOLE 40MG TAB (PROTONIX) PO SCH (08:32)
[2019-06-26] MEDS: ASPIRIN 81 MG CHEW TABLET PO SCH (08:32)
[2019-06-26] MEDS: DOCUSATE SODIUM 100 MG CAP PO SCH ×2 (08:33→21:46)
[2019-06-26] MEDS: predniSONE 5 MG TAB PO SCH (08:33)
[2019-06-26] MEDS: ACETAMINOPHEN 500 MG TAB PO SCH ×3 (08:33→21:47)
[2019-06-26] MEDS: MAGNESIUM GLUCONATE 500 MG TAB PO SCH ×4 (08:33→21:48)
[2019-06-26] MEDS: CALCITRIOL 0.25 MCG CAP (S0169) PO SCH (08:34)
[2019-06-26] MEDS: BACTRIM 160MG/800MG DS TAB PO SCH ×2 (08:34→21:46)
[2019-06-26] MEDS: VITAMIN B COMPLEX/VIT C CAP PO SCH (08:34)
[2019-06-26] MEDS: TORSEMIDE 10 MG TABLET PO SCH (08:34)
[2019-06-26] MEDS: POTASSIUM CHLORIDE 10 MEQ SR TABLET PO SCH (08:34)
[2019-06-26] MEDS: DIGOXIN 0.25 MG TAB PO SCH (08:34)
[2019-06-26] MEDS: GABAPENTIN 300 MG CAP PO SCH ×3 (08:35→21:48)
[2019-06-26] MEDS: oxyCODONE 5MG TAB PO SCH ×3 (08:35→21:48)
[2019-06-26] MEDS ORDERED: PHENAZOPYRIDINE 100 MG TAB PO ONE (12:00)
--- NOTE | 2019-06-26 12:42 | IPNPDOC ---
PM&R Progress Note DATE OF SERVICE: Jun 25, 2019 Economic Development Specialist Progress Note Subjective: Patient stating he has left arm soreness now that his BPs are being taken on that side. He denies chest pain. He states he would like to take his Valium and oxycodone together as he has been doing for years. REVIEW OF SYSTEMS: The following is a completed review of systems and has been reviewed. Review of systems otherwise unremarkable. PAIN: Patient self reports low back pain EYES: No recent vision changes EARS, NOSE, & THROAT: No throat pain, or dysphagia, or rhinorrhea CARDIOVASCULAR: Denies chest pain or palpitations PULMONARY: Denies shortness of breath GASTROINTESTINAL: Denies constipation/diarrhea GENITOURINARY: +dysuria with retention MUSCULOSKELETAL: +cervical and lumbar stenosis NEUROLOGICAL:no focal tremor or seizure activity HEMATOLOGICAL: +easy bruising SKIN: lumbar incision PSYCHIATRIC: Unremarkable All other review of systems found to be negative. PHYSICAL EXAMINATION: VITAL SIGNS: Please see below. GENERAL: Pleasant and cooperative. No acute distress. HEENT: PERRL. Extraocular movements intact. Clear conjunctiva CARDIOVASCULAR: Irregular rate and rhythm. No murmurs, rubs, or gallops LUNGS: Clear to auscultation bilaterally. No wheezes. No rhonchi ABDOMEN: Soft, nontender, nondistended. Positive bowel sounds. NEUROLOGICAL: Alert and oriented times three. Cranial nerves II through XII grossly intact. Sensation grossly intact in all 4 extremities EXTREMITIES: 4\5 strength bilateral upper extremities. 4-\5 strength right lower extremity. 4+/5 strength in left lower extremity. +bilateral calf edema left>right SKIN: lumbar incision and drain mildly erythematous, no induration LUE old AV fistula ASSESSMENT:74-year-old M with past medical history of IgA nephropathy s/p kidney transplant, lumbar stenosis with claudication who presents status post L4-5 laminectomy. PLAN: 1. rehab- PT strengthen/stretch/maintain ROM bilat LE, improve gait endurance, dynamic balance training, stairs, fall recovery- spinal precautions OT strengthen/stretch/maintain ROM bilat UE, improve coordination for optimal ADL management maintaining spinal precautions 2. Neuro/Ortho- patient s/p L4-L5 laminectomy with psh of multiple spine surgeries for cervical myelopathy and spinal stenosis with gait and balance impairment with recurrent falls -f/u neurosurgery 06-28-19 3. Cardio: pmh Afib currently on digoxin started at [facility] , beta-violette held at [facility] due to drops in BP -Mod-severe aortic stenosis c/u amiloride and Torsemide, medicine consulted to assist in management 4. Resp: encourage incentive spirometry and monitor for infection 5. Renal: s/p kidney transplant 2006 c/u prednisone, sirolimus, azathioprine -ok to use left arm for BPs as fistula is inactive -renal following, recs appreciated, CT abdomen-pelvis ordered per Dr. Alcantar 6. GI ppx: protonix, optimize bowel meds 7. DVT ppx: TEDs, +DVT RUE treatment on hold until cleared by neurosurgery 8. Pain: Tylenol,gabapentin -patient reporting at home he takes valium and oxycodone together and has been doing this for years without falling, he is asking to go back to this regimen- agreed to try this, but will decrease dose of Valium to 1mg TID to be taken with oxycodone, hole for sedation- will monitor while here and adjust prn 9. : patient had +Ucx for E coli and received 4 days of Bactrim with partial resolution of symptoms, continue Bactrim for total dosing 14 days given complicated UTI- will monitor Crude Unit Operator while on this med- stable 10. ID: given immunocompromised state ordered Blood cx- negative Ucx also negative, however patient reporting improvements in burning while on Bactrim 10. Dispo: TBD Allergies Coded Allergies: ciprofloxacin (Verified Allergy, Unknown, 12/20/18) amoxicillin (Verified Adverse Reaction, Intermediate, can take few prior to dentist but can not take for 10 days, 12/20/18) pregabalin (Verified Adverse Reaction, Intermediate, UNKNOWN, 12/20/18) tizanidine (Verified Adverse Reaction, Intermediate, 12/20/18) Quinolones (Verified Adverse Reaction, Mild, ANXIETY, 12/20/18) cefuroxime (Verified Adverse Reaction, Mild, ANXIETY, 12/20/18) codeine (Verified Adverse Reaction, Mild, AGITATION, 12/20/18) lorazepam (Verified Adverse Reaction, Mild, AGITATION, 12/20/18) Vital Signs Vital Signs Date Time Temp Pulse Resp B/P (MAP) Pulse Ox O2 Delivery O2 Flow Rate FiO2 06/26/19 09:05 18 06/26/19 08:34 82 06/26/19 06:00 98.7 106/58 (74) 98 Laboratory Data CBC/BMP Laboratory Tests 06/26/19 07:01 Red Blood Count 3.33 L, Mean Corpuscular Volume 94.0, Mean Corpuscular Hemoglobin 30.0, Mean Corpuscular Hemoglobin Concent 31.9 L, Red Cell D istribution Width 14.2, Anion Gap 9 Labs 24H Laboratory Tests 2 06/26/19 07:01: Immature Granulocyte % (Auto) , Nucleated Red Blood Cells % (auto) 0.0, Neutro phils 58, Band Neutrophils 1, Lymphocytes (Manual) 29, Monocytes (Manual) 6H, Eosinophils (Manual) 2, Metamyelocytes 1H, Myelocytes 3H, Platelet Estimate NORMAL, Anisocytosis 1+, Macrocytosis 1+, Blood Urea Nitrogen 12, Creatinine 0.75, Sodium Level 141, Potassium Level 4.4, Chloride Level 106, Carbon Dioxide Level 26, Anion Gap 9, Glomerular Filtration Rate > 60.0, Calcium Level 10.2, Phosphorus Level 2.4L, Albumin 2.7L Microbiology Microbiology 06/21/19 Urine Culture - Final, Complete 06/21/19 Blood Culture - Preliminary, Resulted No Growth after 72 hours. All specime... 06/21/19 Blood Culture - Preliminary, Resulted No Growth after 72 hours. All specime... Current Medications Current Medications Current Medications Medications (Trade) Dose Ordered Sig/Dionte Route PRN Reason Start Time Stop Time Status Last Admin Dose Admin Acetaminophen (Tylenol Tab) 650 mg Q4HP PRN PO fever/MILD PAIN (PS 1-4) 06/20/19 17:00 06/22/19 13:54 DC Acetaminophen (Tylenol Tab) 1,000 mg TID PO 06/22/19 16:00 06/26/19 08:33 Amiloride HCl (Midamor) 5 mg DAILY PO 06/21/19 09:00 06/26/19 08:32 Aspirin (Aspirin Chewable) 81 mg DAILY PO 06/21/19 09:00 06/26/19 08:32 Azathioprine (Imuran) 100 mg DAILY PO 06/21/19 09:00 06/26/19 08:32 Bisacodyl (Dulcolax Suppository) 10 mg DAILYPRN PRN [place] CONSTIPATION 06/20/19 17:00 Calcitriol (Rocaltrol) 0.25 mcg MoTuWeThFr@0900 PO 06/21/19 09:00 06/26/19 08:34 Cyclobenzaprine HCl (Flexeril) 10 mg Q8HP PRN PO SPASMS 06/20/19 17:00 06/21/19 14:04 DC Diazepam (Valium) 1 mg TID PO 06/25/19 16:00 06/26/19 08:32 Diazepam (Valium) 2 mg Q12HP PRN PO ANXIETY 06/20/19 17:00 06/22/19 13:53 DC 06/22/19 11:20 Diazepam (Valium) 2 mg TID PO 06/22/19 16:00 06/25/19 14:54 DC 06/25/19 08:30 Digoxin (Lanoxin) 0.25 mg DAILY PO 06/21/19 09:00 06/26/19 08:34 Docusate Sodium (Colace) 100 mg BID PO 06/20/19 21:00 06/26/19 08:33 Gabapentin (Neurontin) 300 mg BID@0900,1600 PO 06/21/19 09:00 06/26/19 08:35 Gabapentin (Neurontin) 600 mg QHS PO 06/20/19 21:00 06/25/19 21:33 Home Med (Med Rec Complete!) ASDIRECTED XX 06/20/19 18:00 06/20/19 18:08 DC Hydroxyzine HCl (Atarax) 25 mg Q6HP PRN PO ANXIETY 06/20/19 17:00 06/25/19 22:27 Magnesium Gluconate (Magnesium Gluconate) 500 mg QID PO 06/21/19 13:00 06/26/19 08:33 Magnesium Hydroxide (Milk Of Magnesia) 30 ml DAILYPRN PRN PO CONSTIPATION 06/20/19 17:00 Menthol/Methyl Salicylate (Bengay Cream) 1 dose TID TOP 06/25/19 16:00 06/25/19 22:27 Miscellaneous (Unresolved Patient Own Med Order) SEE LABEL COMMENTS DAILY XX 06/20/19 09:00 06/21/19 14:50 DC Ondansetron HCl (Zofran Odt) 4 mg Q4HP PRN SL NAUSEA OR VOMITING 06/25/19 10:00 Ondansetron HCl (Zofran Odt) 4 mg Q6HP PRN PO NAUSEA OR VOMITING 06/20/19 17:00 06/25/19 10:03 DC 06/25/19 09:42 Oxycodone HCl (Roxicodone, Oxyir) 5 mg Q6HP PRN PO PAIN 06/20/19 17:00 06/25/19 14:54 DC 06/25/19 06:55 Oxycodone HCl (Roxicodone, Oxyir) 5 mg TID PO 06/25/19 16:00 06/26/19 08:35 Pantoprazole Sodium (Protonix) 40 mg DAILY PO 06/21/19 09:00 06/26/19 08:32 Patient Own Medication (Patient'S Own Med) TAKE 3 TABLETS BY MOUTH DAILY DAILY@0900 PO 06/22/19 09:00 06/26/19 08:31 Phenazopyridine HCl (Pyridium) 100 mg Q8H PO 06/26/19 22:00 06/28/19 06:01 Potassium Chloride (Micro-K Extencaps) 10 meq DAILY PO 06/21/19 09:00 06/26/19 08:34 Prednisone (Deltasone) 5 mg DAILY PO 06/21/19 09:00 06/26/19 08:33 Senna (Senokot) 1 tab QHS PO 06/20/19 21:00 06/25/19 21:34 Torsemide (Demadex) 10 mg DAILY PO 06/21/19 09:00 06/22/19 15:42 DC 06/22/19 09:35 Torsemide (Demadex) 10 mg DAILY PO 06/23/19 09:00 06/26/19 08:34 Trimethoprim/ Sulfamethoxazole (Bactrim Ds, Septra Ds 160mg/ 800mg) 1 tab BID PO 06/21/19 09:00 06/26/19 08:34 Vitamin B Complex/ Vitamin C (Therapeutic B Complex w/C) 1 cap DAILY PO 06/21/19 09:00 06/26/19 08:34 FARHAN LAMAR MD Jun 26, 2019 12:42
--- NOTE | 2019-06-26 12:45 | IPNPDOC ---
PM&R Progress Note DATE OF SERVICE: Jun 26, 2019 Abstracter Progress Note Subjective: Patient stating he is very tired today because he was up all night urinating and felt burning. He states it is still better on the antibiotic. REVIEW OF SYSTEMS: The following is a completed review of systems and has been reviewed. Review of systems otherwise unremarkable. PAIN: Patient self reports low back pain EYES: No recent vision changes EARS, NOSE, & THROAT: No throat pain, or dysphagia, or rhinorrhea CARDIOVASCULAR: Denies chest pain or palpitations PULMONARY: Denies shortness of breath GASTROINTESTINAL: Denies constipation/diarrhea GENITOURINARY: +dysuria with retention MUSCULOSKELETAL: +cervical and lumbar stenosis NEUROLOGICAL:no focal tremor or seizure activity HEMATOLOGICAL: +easy bruising SKIN: lumbar incision PSYCHIATRIC: Unremarkable All other review of systems found to be negative. PHYSICAL EXAMINATION: VITAL SIGNS: Please see below. GENERAL: Pleasant and cooperative. No acute distress. HEENT: PERRL. Extraocular movements intact. Clear conjunctiva CARDIOVASCULAR: Irregular rate and rhythm. No murmurs, rubs, or gallops LUNGS: Clear to auscultation bilaterally. No wheezes. No rhonchi ABDOMEN: Soft, nontender, nondistended. Positive bowel sounds. NEUROLOGICAL: Alert and oriented times three. Cranial nerves II through XII grossly intact. Sensation grossly intact in all 4 extremities EXTREMITIES: 4\5 strength bilateral upper extremities. 4-\5 strength right lower extremity. 4+/5 strength in left lower extremity. +bilateral calf edema left>right SKIN: lumbar incision and drain mildly erythematous, no induration LUE old AV fistula ASSESSMENT:74-year-old M with past medical history of IgA nephropathy s/p kidney transplant, lumbar stenosis with claudication who presents status post L4-5 laminectomy. PLAN: 1. rehab- PT strengthen/stretch/maintain ROM bilat LE, improve gait endurance, dynamic balance training, stairs, fall recovery- spinal precautions OT strengthen/stretch/maintain ROM bilat UE, improve coordination for optimal ADL management maintaining spinal precautions 2. Neuro/Ortho- patient s/p L4-L5 laminectomy with psh of multiple spine surgeries for cervical myelopathy and spinal stenosis with gait and balance impairment with recurrent falls -f/u neurosurgery 06-28-19 3. Cardio: pmh Afib currently on digoxin started at [facility] , beta-violette held at [facility] due to drops in BP -Mod-severe aortic stenosis c/u amiloride and Torsemide, medicine consulted to assist in management 4. Resp: encourage incentive spirometry and monitor for infection 5. Renal: s/p kidney transplant 2006 c/u prednisone, sirolimus, azathioprine -ok to use left arm for BPs as fistula is inactive -renal following, recs appreciated, CT abdomen-pelvis ordered per Dr. Alcantar 6. GI ppx: protonix, optimize bowel meds 7. DVT ppx: TEDs, +DVT RUE treatment on hold until cleared by neurosurgery 8. Pain: Tylenol,gabapentin -patient reporting at home he takes valium and oxycodone together and has been doing this for years without falling, he is asking to go back to this regimen- agreed to try this, but will decrease dose of Valium to 1mg TID to be taken with oxycodone, hole for sedation- will monitor while here and adjust prn 9. : patient had +Ucx for E coli and received 4 days of Bactrim with partial resolution of symptoms, continue Bactrim for total dosing 14 days given complicated UTI- will monitor Risk Management Internship while on this med- stable -however patient reporting improvements in burning, but that it kept him up last night will start Pyridium 10. ID: given immunocompromised state ordered Blood cx- negative 11. Psych: Insomnia, will trial trazodone, patient asking for extra dose of valium at night, but will avoid this at this time 10. Dispo: TBD Allergies Coded Allergies: ciprofloxacin (Verified Allergy, Unknown, 12/20/18) amoxicillin (Verified Adverse Reaction, Intermediate, can take few prior to dentist but can not take for 10 days, 12/20/18) pregabalin (Verified Adverse Reaction, Intermediate, UNKNOWN, 12/20/18) tizanidine (Verified Adverse Reaction, Intermediate, 12/20/18) Quinolones (Verified Adverse Reaction, Mild, ANXIETY, 12/20/18) cefuroxime (Verified Adverse Reaction, Mild, ANXIETY, 12/20/18) codeine (Verified Adverse Reaction, Mild, AGITATION, 12/20/18) lorazepam (Verified Adverse Reaction, Mild, AGITATION, 12/20/18) Vital Signs Vital Signs Date Time Temp Pulse Resp B/P (MAP) Pulse Ox O2 Delivery O2 Flow Rate FiO2 06/26/19 09:05 18 06/26/19 08:34 82 06/26/19 06:00 98.7 106/58 (74) 98 Laboratory Data CBC/BMP Laboratory Tests 06/26/19 07:01 Red Blood Count 3.33 L, Mean Corpuscular Volume 94.0, Mean Corpuscular Hemoglobin 30.0, Mean Corpuscular Hemoglobin Concent 31.9 L, Red Cell Distribution Width 14.2, Anion Gap 9 Labs 24H Laboratory Tests 2 06/26/19 07:01: Immature Granulocyte % (Auto) , Nucleated Red Blood Cells % (auto) 0.0, Neutrophils 58, Band Neutrophils 1, Lymphocytes (Manual) 29, Monocytes (Manual) 6H, Eosinophils (Manual) 2, Metamyelocytes 1H, Myelocytes 3H, Platelet Estimate NORMAL, Anisocytosis 1+, Macrocytosis 1+, Blood Urea Nitrogen 12, Creatinine 0.75, Sodium Level 141, Potassium Level 4.4, Chloride Level 106, Carbon Dioxide Level 26, Anion Gap 9, Glomerular Filtration Rate > 60.0, Calcium Level 10.2, Phosphorus Level 2.4L, Albumin 2.7L Microbiology Microbiology 06/21/19 Urine Culture - Final, Complete 06/21/19 Blood Culture - Preliminary, Resulted No Growth after 72 hours. All specime... 06/21/19 Blood Culture - Preliminary, Resulted No Growth after 72 hours. All specime... Current Medications Current Medications Current Medications Medications (Trade) Dose Ordered Sig/Dionte Route PRN Reason Start Time Stop Time Status Last Admin Dose Admin Acetaminophen (Tylenol Tab) 650 mg Q4HP PRN PO fever/MILD PAIN (PS 1-4) 06/20/19 17:00 06/22/19 13:54 DC Acetaminophen (Tylenol Tab) 1,000 mg TID PO 06/22/19 16:00 06/26/19 08:33 Amiloride HCl (Midamor) 5 mg DAILY PO 06/21/19 09:00 06/26/19 08:32 Aspirin (Aspirin Chewable) 81 mg DAILY PO 06/21/19 09:00 06/26/19 08:32 Azathioprine (Imuran) 100 mg DAILY PO 06/21/19 09:00 06/26/19 08:32 Bisacodyl (Dulcolax Suppository) 10 mg DAILYPRN PRN [place] CONSTIPATION 06/20/19 17:00 Calcitriol (Rocaltrol) 0.25 mcg MoTuWeThFr@0900 PO 06/21/19 09:00 06/26/19 08:34 Cyclobenzaprine HCl (Flexeril) 10 mg Q8HP PRN PO SPASMS 06/20/19 17:00 06/21/19 14:04 DC Diazepam (Valium) 1 mg TID PO 06/25/19 16:00 06/26/19 08:32 Diazepam (Valium) 2 mg Q12HP PRN PO ANXIETY 06/20/19 17:00 06/22/19 13:53 DC 06/22/19 11:20 Diazepam (Valium) 2 mg TID PO 06/22/19 16:00 06/25/19 14:54 DC 06/25/19 08:30 Digoxin (Lanoxin) 0.25 mg DAILY PO 06/21/19 09:00 06/26/19 08:34 Docusate Sodium (Colace) 100 mg BID PO 06/20/19 21:00 06/26/19 08:33 Gabapentin (Neurontin) 300 mg BID@0900,1600 PO 06/21/19 09:00 06/26/19 08:35 Gabapentin (Neurontin) 600 mg QHS PO 06/20/19 21:00 06/25/19 21:33 Home Med (Med Rec Complete!) ASDIRECTED XX 06/20/19 18:00 06/20/19 18:08 DC Hydroxyzine HCl (Atarax) 25 mg Q6HP PRN PO ANXIETY 06/20/19 17:00 06/25/19 22:27 Magnesium Gluconate (Magnesium Gluconate) 500 mg QID PO 06/21/19 13:00 06/26/19 08:33 Magnesium Hydroxide (Milk Of Magnesia) 30 ml DAILYPRN PRN PO CONSTIPATION 06/20/19 17:00 Menthol/Methyl Salicylate (Bengay Cream) 1 dose TID TOP 06/25/19 16:00 06/25/19 22:27 Miscellaneous (Unresolved Patient Own Med Order) SEE LABEL COMMENTS DAILY XX 06/20/19 09:00 06/21/19 14:50 DC Ondansetron HCl (Zofran Odt) 4 mg Q4HP PRN SL NAUSEA OR VOMITING 06/25/19 10:00 Ondansetron HCl (Zofran Odt) 4 mg Q6HP PRN PO NAUSEA OR VOMITING 06/20/19 17:00 06/25/19 10:03 DC 06/25/19 09:42 Oxycodone HCl (Roxicodone, Oxyir) 5 mg Q6HP PRN PO PAIN 06/20/19 17:00 06/25/19 14:54 DC 06/25/19 06:55 Oxycodone HCl (Roxicodone, Oxyir) 5 mg TID PO 06/25/19 16:00 06/26/19 08:35 Pantoprazole Sodium (Protonix) 40 mg DAILY PO 06/21/19 09:00 06/26/19 08:32 Patient Own Medication (Patient'S Own Med) TAKE 3 TABLETS BY MOUTH DAILY DAILY@0900 PO 06/22/19 09:00 06/26/19 08:31 Phenazopyridine HCl (Pyridium) 100 mg Q8H PO 06/26/19 22:00 06/28/19 06:01 Potassium Chloride (Micro-K Extencaps) 10 meq DAILY PO 06/21/19 09:00 06/26/19 08:34 Prednisone (Deltasone) 5 mg DAILY PO 06/21/19 09:00 06/26/19 08:33 Senna (Senokot) 1 tab QHS PO 06/20/19 21:00 06/25/19 21:34 Torsemide (Demadex) 10 mg DAILY PO 06/21/19 09:00 06/22/19 15:42 DC 06/22/19 09:35 Torsemide (Demadex) 10 mg DAILY PO 06/23/19 09:00 06/26/19 08:34 Trimethoprim/ Sulfamethoxazole (Bactrim Ds, Septra Ds 160mg/ 800mg) 1 tab BID PO 06/21/19 09:00 06/26/19 08:34 Vitamin B Complex/ Vitamin C (Therapeutic B Complex w/C) 1 cap DAILY PO 06/21/19 09:00 06/26/19 08:34 FARHAN LAMAR MD Jun 26, 2019 12:45
[2019-06-26 14:00] VITALS: BP 114/89
[2019-06-26] MEDS: ANALGESIC BALM CRM 120 GM TOP SCH ×2 (16:13→21:48)
--- NOTE | 2019-06-26 20:19 | IPN ---
DATE: 06/26/2019 SUBJECTIVE: The patient was seen and examined at the bedside today morning. The patient reports that he was feeling tired today morning, and he took a long nap. He continues to get physical therapy. Renal function is stable. He is hemodynamically stable. He denies any active complaints at this time. OBJECTIVE: Vital signs: Temperature is 97.4 degrees Fahrenheit, blood pressure 114/89, pulse is 75, respiratory rate of 18, saturating 98% on room air. Intake and output: Urine output recorded is 1 liter since overnight. Weight on the bed scale is not available. PHYSICAL EXAMINATION: General: The patient is awake, alert, oriented times three, sitting up on the sofa in no apparent distress. Head and neck exam: Pupils are equally round and reactive to light. He is wearing a neck collar. Cardiovascular: S1, S2, regular rate. Trace edema of the bilateral lower extremities. Respiratory: Chest is clear to auscultation bilaterally. Bilateral equal air entry. No rales or rhonchi. Abdomen: Soft, positive bowel sounds. Nontender. Musculoskeletal: No clubbing or cyanosis. Pulses are 2+. 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 The patient is able to move all extremities. LAB REVIEW: CBC showed a WBC of 7, hemoglobin is 10, platelets are 415. BMP showed sodium 141, potassium 4.4, chloride 106, bicarbonate 26, BUN 12, creatinine 0.75, calcium 10.2, phosphorus is 2.4, albumin 2.7. CURRENT INPATIENT MEDICATIONS: The patient's medications were all reviewed by me. He was started on Pyridium today. He was also started on trazodone 25 mg nightly. ASSESSMENT/PLAN: 1. Renal allograft status. Renal function is stable. Continue current dose of sirolimus, azathioprine, and prednisone. 2. Paroxysmal atrial fibrillation. Rate controlled with digoxin. No anticoagulation. 3. Chronic hypomagnesemia. Continue current dose of oral magnesium (mag). 4. Dysuria. The patient has been started on Pyridium. Continue current dose. 5. Lower extremity edema. Continue current dose of torsemide and amiloride.
[2019-06-26 21:00] VITALS: BP 113/61
[2019-06-26] MEDS: PHENAZOPYRIDINE 100 MG TAB PO SCH (21:46)
[2019-06-26] MEDS: MOM 30ML SUSPENSION UDC PO PRN (21:46)
[2019-06-26] MEDS: traZODone 25MG PER 1/2 TABLET PO SCH (21:46)
[2019-06-26] MEDS: SENNA 8.6 MG TAB (SENOKOT) PO SCH (21:47)
[2019-06-27] MEDS: PHENAZOPYRIDINE 100 MG TAB PO SCH ×3 (06:10→21:21)
[2019-06-27 06:15] VITALS: BP 122/73
[2019-06-27] MEDS: CALCITRIOL 0.25 MCG CAP (S0169) PO SCH (08:40)
[2019-06-27] MEDS: DOCUSATE SODIUM 100 MG CAP PO SCH ×2 (08:41→21:21)
[2019-06-27] MEDS: TORSEMIDE 10 MG TABLET PO SCH (08:41)
[2019-06-27] MEDS: ASPIRIN 81 MG CHEW TABLET PO SCH (08:41)
[2019-06-27] MEDS: MAGNESIUM GLUCONATE 500 MG TAB PO SCH ×4 (08:41→21:21)
[2019-06-27] MEDS: DIGOXIN 0.25 MG TAB PO SCH (08:41)
[2019-06-27] MEDS: POTASSIUM CHLORIDE 10 MEQ SR TABLET PO SCH (08:41)
[2019-06-27] MEDS: BACTRIM 160MG/800MG DS TAB PO SCH ×2 (08:41→21:21)
[2019-06-27] MEDS: PANTOPRAZOLE 40MG TAB (PROTONIX) PO SCH (08:41)
[2019-06-27] MEDS: diazePAM 2 MG TAB PO SCH ×3 (08:42→21:18)
[2019-06-27] MEDS: ACETAMINOPHEN 500 MG TAB PO SCH ×3 (08:42→21:20)
[2019-06-27] MEDS: VITAMIN B COMPLEX/VIT C CAP PO SCH (08:42)
[2019-06-27] MEDS: azaTHIOprine 50 MG TAB (J7500) PO SCH (08:42)
[2019-06-27] MEDS: predniSONE 5 MG TAB PO SCH (08:42)
[2019-06-27] MEDS: aMILoride 5 MG TAB PO SCH (08:43)
[2019-06-27] MEDS: GABAPENTIN 300 MG CAP PO SCH ×3 (08:43→21:20)
[2019-06-27] MEDS: oxyCODONE 5MG TAB PO SCH ×3 (08:43→21:19)
[2019-06-27] MEDS: SIROLIMUS PO SCH (08:44)
[2019-06-27] MEDS: ANALGESIC BALM CRM 120 GM TOP SCH ×3 (08:45→21:23)
--- NOTE | 2019-06-27 15:10 | IPNPDOC ---
PM&R Progress Note DATE OF SERVICE: Jun 27, 2019 Manager Analysis Progress Note Subjective: Patient reporting he still has pain all over his body, but is participating in therapy well. REVIEW OF SYSTEMS: The following is a completed review of systems and has been reviewed. Review of systems otherwise unremarkable. PAIN: Patient self reports low back pain EYES: No recent vision changes EARS, NOSE, & THROAT: No throat pain, or dysphagia, or rhinorrhea CARDIOVASCULAR: Denies chest pain or palpitations PULMONARY: Denies shortness of breath GASTROINTESTINAL: Denies constipation/diarrhea GENITOURINARY: +dysuria with retention MUSCULOSKELETAL: +cervical and lumbar stenosis NEUROLOGICAL:no focal tremor or seizure activity HEMATOLOGICAL: +easy bruising SKIN: lumbar incision PSYCHIATRIC: Unremarkable All other review of systems found to be negative. PHYSICAL EXAMINATION: VITAL SIGNS: Please see below. GENERAL: Pleasant and cooperative. No acute distress. HEENT: PERRL. Extraocular movements intact. Clear conjunctiva CARDIOVASCULAR: Irregular rate and rhythm. No murmurs, rubs, or gallops LUNGS: Clear to auscultation bilaterally. No wheezes. No rhonchi ABDOMEN: Soft, nontender, nondistended. Positive bowel sounds. NEUROLOGICAL: Alert and oriented times three. Cranial nerves II through XII grossly intact. Sensation grossly intact in all 4 extremities EXTREMITIES: 4\5 strength bilateral upper extremities. 4-\5 strength right lower extremity. 4+/5 strength in left lower extremity. +bilateral calf edema left>right SKIN: lumbar incision and drain mildly erythematous, no induration LUE old AV fistula ASSESSMENT:74-year-old M with past medical history of IgA nephropathy s/p kidney transplant, lumbar stenosis with claudication who presents status post L4-5 laminectomy. PLAN: 1. rehab- PT strengthen/stretch/maintain ROM bilat LE, improve gait endurance, dynamic balance training, stairs, fall recovery- spinal precautions OT strengthen/stretch/maintain ROM bilat UE, improve coordination for optimal ADL management maintaining spinal precautions 2. Neuro/Ortho- patient s/p L4-L5 laminectomy with psh of multiple spine surgeries for cervical myelopathy and spinal stenosis with gait and balance impairment with recurrent falls -f/u neurosurgery 06-28-19 3. Cardio: pmh Afib currently on digoxin started at [facility] , beta-violette held at [facility] due to drops in BP -Mod-severe aortic stenosis c/u amiloride and Torsemide, medicine consulted to assist in management 4. Resp: encourage incentive spirometry and monitor for infection 5. Renal: s/p kidney transplant 2006 c/u prednisone, sirolimus, azathioprine -ok to use left arm for BPs as fistula is inactive -renal following, recs appreciated, CT abdomen-pelvis ordered per Dr. Alcantar 6. GI ppx: protonix, optimize bowel meds 7. DVT ppx: TEDs, +DVT RUE treatment on hold until cleared by neurosurgery 8. Pain: Tylenol,gabapentin -patient reporting at home he takes valium and oxycodone together and has been doing this for years without falling, he is asking to go back to this regimen- agreed to try this, but will decrease dose of Valium to 1mg TID to be taken with oxycodone, hold for sedation- will monitor while here and adjust prn 9. : patient had +Ucx for E coli and received 4 days of Bactrim with partial resolution of symptoms, continue Bactrim for total dosing 14 days given complicated UTI- will monitor [employer] while on this med- stable -however patient reporting improvements in burning, c/u Pyridium 10. ID: given immunocompromised state ordered Blood cx- negative 11. Psych: Insomnia, c/u trazodone 10. Dispo: 07-06-19 to home Allergies Coded Allergies: ciprofloxacin (Verified Allergy, Unknown, 12/20/18) amoxicillin (Verified Adverse Reaction, Intermediate, can take few prior to dentist but can not take for 10 days, 12/20/18) pregabalin (Verified Adverse Reaction, Intermediate, UNKNOWN, 12/20/18) tizanidine (Verified Adverse Reaction, Intermediate, 12/20/18) Quinolones (Verified Adverse Reaction, Mild, ANXIETY, 12/20/18) cefuroxime (Verified Adverse Reaction, Mild, ANXIETY, 12/20/18) codeine (Verified Adverse Reaction, Mild, AGITATION, 12/20/18) lorazepam (Verified Adverse Reaction, Mild, AGITATION, 12/20/18) Vital Signs Vital Signs Date Time Temp Pulse Resp B/P (MAP) Pulse Ox O2 Delivery O2 Flow Rate FiO2 06/27/19 09:13 16 06/27/19 08:41 70 06/27/19 06:15 97.6 122/73 (89) 98 Laboratory Data Labs 24H Laboratory Tests 2 06/27/19 06:19: Digoxin Level 1.2 Microbiology Microbiology 06/21/19 Urine Culture - Final, Complete 06/21/19 Blood Culture - Final, Complete NO GROWTH AFTER 5 DAYS 06/21/19 Blood Culture - Final, Complete NO GROWTH AFTER 5 DAYS Current Medications Current Medications Current Medications Medications (Trade) Dose Ordered Sig/Dionte Route PRN Reason Start Time Stop Time Status Last Admin Dose Admin Acetaminophen (Tylenol Tab) 650 mg Q4HP PRN PO fever/MILD PAIN (PS 1-4) 06/20/19 17:00 06/22/19 13:54 DC Acetaminophen (Tylenol Tab) 1,000 mg TID PO 06/22/19 16:00 06/27/19 08:42 Amiloride HCl (Midamor) 5 mg DAILY PO 06/21/19 09:00 06/27/19 08:43 Aspirin (Aspirin Chewable) 81 mg DAILY PO 06/21/19 09:00 06/27/19 08:41 Azathioprine (Imuran) 100 mg DAILY PO 06/21/19 09:00 06/27/19 08:42 Bisacodyl (Dulcolax Suppository) 10 mg DAILYPRN PRN VT CONSTIPATION 06/20/19 17:00 Calcitriol (Rocaltrol) 0.25 mcg MoTuWeThFr@0900 PO 06/21/19 09:00 06/27/19 08:40 Cyclobenzaprine HCl (Flexeril) 10 mg Q8HP PRN PO SPASMS 06/20/19 17:00 06/21/19 14:04 DC Diazepam (Valium) 1 mg TID PO 06/25/19 16:00 06/27/19 08:42 Diazepam (Valium) 2 mg Q12HP PRN PO ANXIETY 06/20/19 17:00 06/22/19 13:53 DC 06/22/19 11:20 Diazepam (Valium) 2 mg TID PO 06/22/19 16:00 06/25/19 14:54 DC 06/25/19 08:30 Digoxin (Lanoxin) 0.25 mg DAILY PO 06/21/19 09:00 06/27/19 08:41 Docusate Sodium (Colace) 100 mg BID PO 06/20/19 21:00 06/27/19 08:41 Gabapentin (Neurontin) 300 mg BID@0900,1600 PO 06/21/19 09:00 06/27/19 08:43 Gabapentin (Neurontin) 600 mg QHS PO 06/20/19 21:00 06/26/19 21:48 Home Med (Med Rec Complete!) ASDIRECTED XX 06/20/19 18:00 06/20/19 18:08 DC Hydroxyzine HCl (Atarax) 25 mg Q6HP PRN PO ANXIETY 06/20/19 17:00 06/25/19 22:27 Magnesium Gluconate (Magnesium Gluconate) 500 mg QID PO 06/21/19 13:00 06/27/19 12:25 Magnesium Hydroxide (Milk Of Magnesia) 30 ml DAILYPRN PRN PO CONSTIPATION 06/20/19 17:00 06/26/19 21:46 Menthol/Methyl Salicylate (Bengay Cream) 1 dose TID TOP 06/25/19 16:00 06/27/19 08:45 Miscellaneous (Unresolved Patient Own Med Order) SEE LABEL COMMENTS DAILY XX 06/20/19 09:00 06/21/19 14:50 DC Ondansetron HCl (Zofran Odt) 4 mg Q4HP PRN SL NAUSEA OR VOMITING 06/25/19 10:00 Ondansetron HCl (Zofran Odt) 4 mg Q6HP PRN PO NAUSEA OR VOMITING 06/20/19 17:00 06/25/19 10:03 DC 06/25/19 09:42 Oxycodone HCl (Roxicodone, Oxyir) 5 mg Q6HP PRN PO PAIN 06/20/19 17:00 06/25/19 14:54 DC 06/25/19 06:55 Oxycodone HCl (Roxicodone, Oxyir) 5 mg TID PO 06/25/19 16:00 06/27/19 08:43 Pantoprazole Sodium (Protonix) 40 mg DAILY PO 06/21/19 09:00 06/27/19 08:41 Patient Own Medication (Patient'S Own Med) TAKE 3 TABLETS BY MOUTH DAILY DAILY@0900 PO 06/22/19 09:00 06/27/19 08:44 Phenazopyridine HCl (Pyridium) 100 mg Q8H PO 06/26/19 22:00 06/28/19 06:01 06/27/19 06:10 Potassium Chloride (Micro-K Extencaps) 10 meq DAILY PO 06/21/19 09:00 06/27/19 08:41 Prednisone (Deltasone) 5 mg DAILY PO 06/21/19 09:00 06/27/19 08:42 Senna (Senokot) 1 tab QHS PO 06/20/19 21:00 06/26/19 21:47 Torsemide (Demadex) 10 mg DAILY PO 06/21/19 09:00 06/22/19 15:42 DC 06/22/19 09:35 Torsemide (Demadex) 10 mg DAILY PO 06/23/19 09:00 06/27/19 08:41 Trazodone HCl (Desyrel) 25 mg QHS PO 06/26/19 21:00 06/26/19 21:46 Trimethoprim/ Sulfamethoxazole (Bactrim Ds, Septra Ds 160mg/ 800mg) 1 tab BID PO 06/21/19 09:00 06/27/19 08:41 Vitamin B Complex/ Vitamin C (Therapeutic B Complex w/C) 1 cap DAILY PO 06/21/19 09:00 06/27/19 08:42 FARHAN LAMAR MD Jun 27, 2019 15:10
[2019-06-27 15:17] VITALS: BP 170/94
--- NOTE | 2019-06-27 15:31 | IPNPDOC ---
Text Note Date of Service The patient was seen on 06/27/19. NOTE Subjective: Patient is a 74-year-old male with a PMHx of CAD, Aortic stenosis, Atrial fibrillation (s/p Coumadin), HTN, DLP, IgA Nephropathy (s/p Renal transplant 2006, s/p ESRD on HD), Multiple spinal surgeries, Multiple ventral hernia repairs, Neuropathy, Iron deficiency anemia, Osteoporosis, GERD who was transferred from [facility] after receiving a laminectomy on 06/11/2019. Patient has had a complicated course of multiple hospitalizations. Patient initially presented to [facility] on 05/15/2019 and had complained of back pain after experiencing a fall. Patient was evaluated by hospitalist service as well as orthopedic surgery who had recommended the patient be transferred to a higher level of care. Patient was ultimately transferred to [facility] where he was managed by his own neurosurgeon, Dr. Mccartney. Patient remains as an inpatient for 1 week duration and was subsequent discharged home. Patient again experience a fall on June 05 while he was at home. This slowly progressed to worsening pain and difficulty walking. By June 07. Patient was unable to walk and was transported to [facility] where his found to have multiple acute on chronic vertebral fractures. Patient was admitted to [facility] where he received MRI, CT scan and x-ray imaging, which are consistent with acute on chronic spinal injury. There was compression of L4-L5 spine. Laminectomy was successfully completed on 06/11/2019. After the procedure, neurosurgery had recommended that patient be kept off of his anticoagulation with Coumadin for 2 weeks following the surgery. Patients hospital course was complicated with the development of a urinary tract infection and urinary retention. Patient did receive a Villa catheter that was subsequent the removed. . He was also treated for an Escherichia coli urinary tract infection with Bactrim for 3 days duration. Patient had developed atrial fibrillation with rapid ventricular response and was hypotensive. Patient was transitioned from metoprolol to digoxin and has remained well controlled since that point. On 06/17/2019 patient was found to have a right upper extremity DVT as a result of the midline that was placed Coumadin and anticoagulation is being held until 2 weeks after procedure. Currently, patient was transferred to [facility] on 06/20/2019 for continued physical therapy and rehabilitation. Hospital services consultation for further medical management. Patient was seen and examined at the bedside. Patient reported that he has had no events overnight. Denies nausea, vomiting, abdominal pain, diarrhea, or urinary discomfort. He has reported that he is urinating and a however, his frequency has decreased and was ordered yesterday evening he is only gotten up twice to urinate. Objective: Vitals (See below) General: Lying in bed, no acute distress, comfortable, AAOx3 HEENT: NC, AT CVS: +S1S2 Lungs: There is fair air entry bilaterally without auscultated wheezing, rhonchi or crackles Abdomen: Soft without distention or tenderness Extremities: 1+ pitting edema still appreciated bilaterally. Lower extremities, tye compression stockings are noted, - Calf tenderness Assessment and plan: Multiple vertebral fractures - 2/2 mechanical fall - Patient was noted to have L4-6 and T11-T12 compression fractures, status post laminectomy 06/11/2019 - Patient has been transferred by [facility] neurosurgical team for continued physical therapy and rehabilitation - As per neurosurgical team recommendations; Anticoagulation will be held for 2 weeks duration from the point of surgery; patient will be reevaluated by their team prior to anticoagulation restarting; following up with neurosurgery 06/28/2019 - Pain control and bowel regimen as per ARU - Patient will continue with physical therapy and occupation therapy at the direction of ARU Atrial fibrillation - Currently, patient appears to be rate and rhythm control - Patient was taken off of metoprolol because of hypotension - c/w rate / rhythm control with Digoxin - Digoxin levels are appropriate - Full anticoagulation with Coumadin will be held until 2 weeks after procedure - Again risks and benefits about holding anticoagulation in this setting have been discussed thoroughly with patient, and daughter - they have verbalized understanding of holding anticoagulation in the setting - Resume anticoagulation when cleared by Neurosurgery - Follow up appointment on 06/28/19 IgA Nephropathy - s/p Renal transplant 2006 - s/p ESRD on HD - c/w Prednisone, Sirolimus and Azathioprine - Patient follows with Dr. Katharine KHANNA DVT - Patient was found to have a DVT of his right upper extremity on 06/17/2019 at [facility], as a result of the midline - Currently neurosurgical team would like to hold off on anticoagulation until 2 weeks after procedure - Again risks and benefits about holding anticoagulation in this setting have been discussed thoroughly with patient, and daughter - they have verbalized understanding of holding anticoagulation in the setting - Plan on resuming anticoagulation when cleared by Neurosurgery Aortic stenosis - Clinically patient appears to have signs of fluid overload - Lower extremities do reveal 1+ pitting edema - ECHO 06/21: Preserved EF, unable to evaluate diastolic function, dilated right atrium, normal IVC size and collapsed against an elevated CVP, moderately severe ASA, mildmoderate AR, - c/w Torsemide 10 and Amiloride 5 HTN - Blood pressure is well controlled CAD - c/w ASA 81 DLP - Currently not on medications Neuropathy - c/w Gabapentin Iron deficiency anemia - Will follow Hg trend Anxiety - c/w Hydroxyzine and Diazepam GERD - c/w Protonix DVT prophylaxis - c/w TEDs/Sequentials Disposition: - Will need to resume anticoagulation when cleared by Neurosurgery VS,Josebone, I+O VS, Josebone, I+O Vital Signs Date Time Temp Pulse Resp B/P (MAP) Pulse Ox O2 Delivery O2 Flow Rate FiO2 06/27/19 15:17 97.8 61 18 170/94 (119) 96 I&O- Last 24 Hours up to 6 AM 06/27/19 06:00 Intake Total 1320 ml Output Total 825 ml Balance 495 ml JOVANY LEMONS MD Jun 27, 2019 15:31
[2019-06-27] MEDS: ONDANSETRON 4 MG ORAL DISINTEGRATING TAB (Q0162 PER 1MG) SL PRN (16:12)
[2019-06-27 20:00] VITALS: BP 160/94
[2019-06-27] MEDS: traZODone 25MG PER 1/2 TABLET PO SCH (21:21)
[2019-06-27] MEDS: SENNA 8.6 MG TAB (SENOKOT) PO SCH (21:21)
[2019-06-28] MEDS: hydrOXYzine 25 MG TAB PO PRN (01:03)
[2019-06-28] MEDS: PHENAZOPYRIDINE 100 MG TAB PO SCH (06:23)
[2019-06-28 06:33] VITALS: BP 135/77
[2019-06-28] MEDS: diazePAM 2 MG TAB PO SCH ×3 (08:15→21:51)
[2019-06-28] MEDS: SIROLIMUS PO SCH (08:15)
[2019-06-28] MEDS: ACETAMINOPHEN 500 MG TAB PO SCH ×3 (08:16→21:51)
[2019-06-28] MEDS: CALCITRIOL 0.25 MCG CAP (S0169) PO SCH (08:16)
[2019-06-28] MEDS: ASPIRIN 81 MG CHEW TABLET PO SCH (08:16)
[2019-06-28] MEDS: VITAMIN B COMPLEX/VIT C CAP PO SCH (08:16)
[2019-06-28] MEDS: BACTRIM 160MG/800MG DS TAB PO SCH ×2 (08:16→21:51)
[2019-06-28] MEDS: DOCUSATE SODIUM 100 MG CAP PO SCH ×2 (08:16→21:50)
[2019-06-28] MEDS: PANTOPRAZOLE 40MG TAB (PROTONIX) PO SCH (08:16)
[2019-06-28] MEDS: predniSONE 5 MG TAB PO SCH (08:17)
[2019-06-28] MEDS: GABAPENTIN 300 MG CAP PO SCH ×3 (08:18→21:50)
[2019-06-28] MEDS: TORSEMIDE 10 MG TABLET PO SCH (08:18)
[2019-06-28] MEDS: aMILoride 5 MG TAB PO SCH (08:18)
[2019-06-28] MEDS: POTASSIUM CHLORIDE 10 MEQ SR TABLET PO SCH (08:18)
[2019-06-28] MEDS: azaTHIOprine 50 MG TAB (J7500) PO SCH (08:18)
[2019-06-28] MEDS: oxyCODONE 5MG TAB PO SCH ×3 (08:18→21:52)
[2019-06-28] MEDS: MAGNESIUM GLUCONATE 500 MG TAB PO SCH ×4 (08:18→21:51)
[2019-06-28] MEDS: DIGOXIN 0.25 MG TAB PO SCH (08:20)
[2019-06-28] MEDS: ANALGESIC BALM CRM 120 GM TOP SCH ×3 (08:21→21:00)
[2019-06-28 14:00] VITALS: BP 132/63
[2019-06-28] MEDS: traZODone 25MG PER 1/2 TABLET PO SCH (21:50)
[2019-06-28] MEDS: SENNA 8.6 MG TAB (SENOKOT) PO SCH (21:50)
[2019-06-28 22:03] VITALS: BP 123/75
[2019-06-29] MEDS: ONDANSETRON 4 MG ORAL DISINTEGRATING TAB (Q0162 PER 1MG) SL PRN (03:45)
--- NOTE | 2019-06-29 06:35 | IPNPDOC ---
Text Note Date of Service The patient was seen on 06/29/19. NOTE Subjective: -No events overnight. -ROS negative for chest pain, nausea, vomiting, abdominal pain, diarrhea, or dysuria. Objective: Vitals (See below) General: Lying in bed, no acute distress, comfortable, AAOx3 HEENT: NC, AT CVS: +S1S2 Lungs: CTAB, no crackles or wheezing Abdomen: Soft without distention or tenderness Extremities: 1+ pitting edema bilaterally. Compression stockings on with no calf tenderness Assessment and plan: Multiple vertebral fractures - 2/2 mechanical fall - L4-6 and T11-T12 compression fractures, s/p laminectomy 06/11/2019 - Transferred from [facility] neurosurgical team for continued physical therapy and rehabilitation - Seen by neurosurgery 06/28/2019, pending anticoagulation recs given ongoing upper extremity DVT during a period which he is supposed off anticoagulation for 2 weeks - Pain control and bowel regimen as per ARU - Patient will continue with physical therapy and occupation therapy at the direction of ARU Atrial fibrillation - Currently rate and rhythm controlled - metoprolol held due to hypotension - c/w with Digoxin, w/ levels check - Follow up anticoagulation recs per neurosurgery, was to see patient on yesterday 06/28/2019, AC was to be held for 2 weeks after procedure but has DVT - Risks and benefits about holding anticoagulation in this setting have been discussed thoroughly with patient, and daughter and they previously verbalized understanding of holding anticoagulation in the setting IgA Nephropathy - s/p Renal transplant 2006 - s/p ESRD on HD - c/w Prednisone, Sirolimus and Azathioprine - Patient follows with Dr. Katharine KHANNA DVT - Patient was found to have a DVT of his right upper extremity on 06/17/2019 at [facility], as a result of the midline - Currently neurosurgical team would like to hold off on anticoagulation until 2 weeks after procedure, was to be reassessed yesterday and pending recs on anticoagulation. Will follow up their recs today. - Plan on resuming anticoagulation when cleared by Neurosurgery Aortic stenosis - Clinically patient appears to have signs of fluid overload - Lower extremities do reveal 1+ pitting edema - ECHO 06/21: Preserved EF, unable to evaluate diastolic function, dilated right atrium, normal IVC size and collapsed against an elevated CVP, moderately severe ASA, mildmoderate AR, - c/w Torsemide 10 and Amiloride 5 HTN - Blood pressure is well controlled CAD - c/w ASA 81 DLP - Currently not on medications Neuropathy - c/w Gabapentin Iron deficiency anemia - Will follow Hg trend Anxiety - c/w Hydroxyzine and Diazepam GERD - c/w Protonix DVT prophylaxis - c/w TEDs/Sequentials Disposition: - To resume anticoagulation when cleared by Neurosurgery - Otherwise continue w/ PT VS,Fishbone, I+O VS, Fishbone, I+O Vital Signs Date Time Temp Pulse Resp B/P (MAP) Pulse Ox O2 Delivery O2 Flow Rate FiO2 06/28/19 22:22 18 06/28/19 22:03 99.3 86 123/75 (91) 98 I&O- Last 24 Hours up to 6 AM 06/29/19 06:00 Intake Total 1200 ml Balance 1200 ml MANNY HERRERA MD Jun 29, 2019 06:34
[2019-06-29] MEDS: diazePAM 2 MG TAB PO SCH ×3 (06:52→21:57)
[2019-06-29] MEDS: oxyCODONE 5MG TAB PO SCH ×3 (06:52→21:57)
[2019-06-29 07:21] LABS: BASO % 0.4 % (0.0-1.0); EOS % 0.3 % (0.0-3.0); HEMATOCRIT 33.2 % (42.0-52.0); HEMOGLOBIN 10.6 g/dl (13.5-17.5); LYMPH # 1.8 10^3/uL (1.5-5.0); LYMPH % 26.2 % (24.0-44.0); MEAN CORPUSCULAR HEMOGLOBIN 30.4 pg (27.0-33.0); MEAN CORPUSCULAR HGB CONC 31.9 g/dl (32.0-36.5); MEAN CORPUSCULAR VOLUME 95.1 fl (80.0-96.0); MONO # 0.8 10^3/uL (0.0-0.8); MONO % 11.2 % (0.0-5.0); NEUTROPHILS # 3.9 10^3/uL (1.5-8.5); NEUTROPHILS % 57.9 % (36.0-66.0); PLATELET COUNT, AUTOMATED 419 10^3/uL (150-450); RED BLOOD COUNT 3.49 10^6/uL (4.30-6.10); WHITE BLOOD COUNT 6.7 10^3/uL (4.0-10.0)
[2019-06-29 07:35] VITALS: BP 134/66
[2019-06-29 07:42] LABS: ALBUMIN 3.1 GM/DL (3.2-5.2); BLOOD UREA NITROGEN 11 MG/DL (7-18); CALCIUM LEVEL 10.5 MG/DL (8.8-10.2); CARBON DIOXIDE LEVEL 28 MEQ/L (21-32); CHLORIDE LEVEL 106 MEQ/L (98-107); CREATININE FOR GFR 0.81 MG/DL (0.70-1.30); GLOMERULAR FILTRATION RATE > 60.0 (>42); GLUCOSE, FASTING 98 MG/DL (70-100); PHOSPHORUS LEVEL 2.3 MG/DL (2.5-4.9); POTASSIUM SERUM 4.3 MEQ/L (3.5-5.1); SODIUM LEVEL 140 MEQ/L (136-145)
[2019-06-29] MEDS: POTASSIUM CHLORIDE 10 MEQ SR TABLET PO SCH (08:49)
[2019-06-29] MEDS: ASPIRIN 81 MG CHEW TABLET PO SCH (08:49)
[2019-06-29] MEDS: predniSONE 5 MG TAB PO SCH (08:49)
[2019-06-29] MEDS: BACTRIM 160MG/800MG DS TAB PO SCH ×2 (08:49→21:58)
[2019-06-29] MEDS: GABAPENTIN 300 MG CAP PO SCH ×3 (08:49→21:56)
[2019-06-29] MEDS: CALCITRIOL 0.25 MCG CAP (S0169) PO SCH (08:49)
[2019-06-29] MEDS: DOCUSATE SODIUM 100 MG CAP PO SCH ×2 (08:49→21:58)
[2019-06-29] MEDS: PANTOPRAZOLE 40MG TAB (PROTONIX) PO SCH (08:49)
[2019-06-29] MEDS: MAGNESIUM GLUCONATE 500 MG TAB PO SCH ×4 (08:50→21:58)
[2019-06-29] MEDS: ACETAMINOPHEN 500 MG TAB PO SCH ×3 (08:50→21:57)
[2019-06-29] MEDS: SIROLIMUS PO SCH (08:51)
[2019-06-29] MEDS: VITAMIN B COMPLEX/VIT C CAP PO SCH (08:51)
[2019-06-29] MEDS: DIGOXIN 0.25 MG TAB PO SCH (08:51)
[2019-06-29] MEDS: azaTHIOprine 50 MG TAB (J7500) PO SCH (08:51)
[2019-06-29] MEDS: TORSEMIDE 10 MG TABLET PO SCH (08:51)
[2019-06-29] MEDS: aMILoride 5 MG TAB PO SCH (08:51)
[2019-06-29] MEDS: ANALGESIC BALM CRM 120 GM TOP SCH ×3 (08:52→21:59)
[2019-06-29] MEDS: MOM 30ML SUSPENSION UDC PO PRN (10:01)
--- NOTE | 2019-06-29 12:26 | IPN ---
DATE: 06/29/2019 SUBJECTIVE: The patient was seen and examined at the bedside this morning in the rehabilitation unit. He was getting his physical therapy when I saw him. The patient is afebrile, hemodynamically stable. His renal function continues to be stable. He reports he has low back pain and he is going to discuss this with the rehab physician. OBJECTIVE: Vital signs: Temperature is 98.9 degrees Fahrenheit, blood pressure 134/66, pulse is 82, respiratory of 20, saturating 97% on room air. Intake and output: There is no urine output recorded. There of five voids recorded. Weight on the bed scale is not available. PHYSICAL EXAMINATION: GENERAL: The patient is awake, alert, oriented x3. Standing up and in no apparent distress. Head and neck exam: Extraocular muscles intact. Pupils equally round and reactive to light. Mucous membranes are moist. Neck is supple. Cardiovascular: S1, S2. Regular rate. 1+ edema of the ankles. Respiratory: Chest is clear to auscultation bilaterally. Bilateral equal air entry. No rales or rhonchi. Abdomen: Soft, positive bowel sounds. Nontender. Musculoskeletal: No clubbing or cyanosis. He is doing physical therapy at this point. LABORATORY REVIEW: CBC showed WBC of 6.7, hemoglobin 10.6, platelets of 419. BMP showed sodium 140, potassium 4.3, chloride 106, bicarbonate 28, BUN 11, creatinine is 0.81, calcium 10.5, albumin is 3.1. Parathyroid hormone was 19.2. CURRENT INPATIENT MEDICATIONS: The patient's medications were all reviewed by me. I am stopping the calcitriol at this time because of hypercalcemia. No other change in the medications today. ASSESSMENT/PLAN: 1. Renal allograft status. The patient has excellent renal allograft function. Continue current dose azathioprine, sirolimus and prednisone. 2. Hypercalcemia, most likely secondary to use of calcitriol. The patient is not on any calcium supplements. Calcitriol is being stopped. 3. Secondary hyperparathyroidism. PTH level is mildly elevated because of high calcium levels. Calcitriol was being held now. It will be restarted once the calcium level gets better but it would be a lower dose. 4. Lower extremity edema. Continue current dose of torsemide and amiloride. Potassium level is within the acceptable limit.
[2019-06-29 14:00] VITALS: BP 127/57
[2019-06-29] MEDS: WARFARIN SOD 2.5 MG TAB PO SCH (17:59)
[2019-06-29 20:00] VITALS: BP 136/78
[2019-06-29] MEDS: SENNA 8.6 MG TAB (SENOKOT) PO SCH (21:56)
[2019-06-29] MEDS: traZODone 25MG PER 1/2 TABLET PO SCH (21:56)
[2019-06-30 04:00] VITALS: BP 182/80
[2019-06-30] MEDS: diazePAM 2 MG TAB PO SCH ×3 (05:32→21:29)
[2019-06-30] MEDS: oxyCODONE 5MG TAB PO SCH ×3 (05:34→21:29)
[2019-06-30 07:36] VITALS: BP 140/91
[2019-06-30 08:09] LABS: PROTHROMBIN TIME 12.9 SECONDS (11.8-14.0)
--- NOTE | 2019-06-30 08:14 | IPNPDOC ---
Text Note Date of Service The patient was seen on 06/30/19. NOTE Subjective: -No events overnight. Has some lower back pain. -ROS negative for chest pain, nausea, vomiting, abdominal pain, diarrhea, or dysuria. Objective: Vitals (See below) General: Lying in bed, no acute distress, comfortable, AAOx3 HEENT: NC, AT CVS: +S1S2, RRR Lungs: CTAB, no crackles or wheezing Abdomen: Soft without distention or tenderness Extremities: Stable pitting edema bilaterally. Compression stockings on with no calf tenderness Assessment and plan: Multiple vertebral fractures - 2/2 mechanical fall - L4-6 and T11-T12 compression fractures, s/p laminectomy 06/11/2019 - Transferred from [facility] neurosurgical team for continued physical therapy and rehabilitation - Seen by neurosurgery 06/28/2019, pending anticoagulation recs given ongoing upper extremity DVT during a period which he is supposed off anticoagulation for 2 weeks - Pain control and bowel regimen as per ARU - Patient will continue with physical therapy and occupation therapy at the direction of ARU Atrial fibrillation - Currently rate and rhythm controlled - metoprolol held due to hypotension - c/w with Digoxin, w/ levels check - AC to be held for 2 weeks after procedure despite DVT per neurosurgery. There had been a mention of a 06/28 review but being inpatient at this time, he will not see the neurosurgeon until he is discharged from the ARU - Risks and benefits about holding anticoagulation in this setting were previously discussed thoroughly with patient, and daughter and they previously verbalized understanding of holding anticoagulation in the setting IgA Nephropathy - s/p Renal transplant 2006 - s/p ESRD on HD - c/w Prednisone, Sirolimus and Azathioprine - Patient follows with Dr. Alcantar, being followed inpatient by Dr. Federico KHANNA DVT - Patient was found to have a DVT of his right upper extremity on 06/17/2019 at [facility], as a result of the midline - Currently neurosurgical team would like to hold off on anticoagulation until 2 weeks after procedure. - Plan on resuming anticoagulation when cleared by Neurosurgery Aortic stenosis - Clinically patient appears to have signs of fluid overload - Lower extremities do reveal 1+ pitting edema - ECHO 06/21: Preserved EF, unable to evaluate diastolic function, dilated right atrium, normal IVC size and collapsed against an elevated CVP, moderately severe ASA, mildmoderate AR, - c/w Torsemide 10 and Amiloride 5 HTN - Blood pressure is well controlled CAD - c/w ASA 81 DLP - Currently not on medications Neuropathy - c/w Gabapentin Iron deficiency anemia - Will follow Hg trend Anxiety - c/w Hydroxyzine and Diazepam GERD - c/w Protonix DVT prophylaxis - c/w TEDs/Sequentials Disposition: - To resume anticoagulation when cleared by Neurosurgery - Otherwise continue w/ PT VS,Fishbone, I+O VS, Fishbone, I+O Vital Signs Date Time Temp Pulse Resp B/P (MAP) Pulse Ox O2 Delivery O2 Flow Rate FiO2 06/30/19 07:36 140/91 (107) 06/30/19 06:11 18 06/30/19 04:00 97.3 78 97 I&O- Last 24 Hours up to 6 AM 06/30/19 06:00 Intake Total 1160 ml Output Total 350 ml Balance 810 ml MANNY HERRERA MD Jun 30, 2019 08:14
[2019-06-30] MEDS: POTASSIUM CHLORIDE 10 MEQ SR TABLET PO SCH (08:49)
[2019-06-30] MEDS: SIROLIMUS PO SCH (08:49)
[2019-06-30] MEDS: predniSONE 5 MG TAB PO SCH (08:49)
[2019-06-30] MEDS: VITAMIN B COMPLEX/VIT C CAP PO SCH (08:49)
[2019-06-30] MEDS: MAGNESIUM GLUCONATE 500 MG TAB PO SCH ×4 (08:49→21:27)
[2019-06-30] MEDS: aMILoride 5 MG TAB PO SCH (08:49)
[2019-06-30] MEDS: BACTRIM 160MG/800MG DS TAB PO SCH ×2 (08:49→21:27)
[2019-06-30] MEDS: DOCUSATE SODIUM 100 MG CAP PO SCH ×2 (08:49→21:27)
[2019-06-30] MEDS: azaTHIOprine 50 MG TAB (J7500) PO SCH (08:50)
[2019-06-30] MEDS: ASPIRIN 81 MG CHEW TABLET PO SCH (08:50)
[2019-06-30] MEDS: DIGOXIN 0.25 MG TAB PO SCH (08:50)
[2019-06-30] MEDS: TORSEMIDE 10 MG TABLET PO SCH (08:50)
[2019-06-30] MEDS: PANTOPRAZOLE 40MG TAB (PROTONIX) PO SCH (08:50)
[2019-06-30] MEDS: GABAPENTIN 300 MG CAP PO SCH ×3 (08:50→21:28)
[2019-06-30] MEDS: ACETAMINOPHEN 500 MG TAB PO SCH ×3 (08:51→21:27)
[2019-06-30] MEDS: ANALGESIC BALM CRM 120 GM TOP SCH ×3 (08:51→21:30)
[2019-06-30 13:46] VITALS: BP 147/80
[2019-06-30] MEDS ORDERED: TORSEMIDE 10 MG TABLET PO ONE (14:00)
[2019-06-30] MEDS: ONDANSETRON 4 MG ORAL DISINTEGRATING TAB (Q0162 PER 1MG) SL PRN (16:01)
[2019-06-30] MEDS: hydrOXYzine 25 MG TAB PO PRN (16:01)
[2019-06-30] MEDS: WARFARIN SOD 2.5 MG TAB PO SCH (16:01)
--- NOTE | 2019-06-30 16:37 | IPN ---
DATE: 06/30/2019 Mr. Kwon is seen this morning in acute rehabilitation floor. He is currently in the gym performing his physical therapy. He is feeling gradual improvement in his strength; however, back pain is still significant. He reports it about level 9 out of 10. He has lower extremity edema but denies any dyspnea or chest pain. He does not have any nausea, vomiting, fever, or chills. PHYSICAL EXAMINATION: Temperature 97.3 degrees Fahrenheit, heart rate 78 per minute, respiratory rate 18 per minute, blood pressure 140/90 mm of mercury, and oxygen saturation 97% on room air. He is wearing a cervical collar. Head is atraumatic. Heart sounds are regular with systolic murmur grade 2/6. Lungs clear to auscultation. Abdomen soft and nontender, and bowel sounds are present. Transplant kidney nontender. Extremities without any cyanosis or clubbing. Lower extremity edema is about 1+ bilaterally. The patient did not have any labs done today. His labs from yesterday showed a BUN 11 and creatinine 0.81. Calcium level 10.5 and phosphorus 2.3. Albumin 3.1. Hemoglobin 10.6 and hematocrit 33.2. INR today is 1.0. PROBLEMS: 1. Kidney transplant status. Kidney function has been stable and doing well. Electrolytes are stable at this time. We will continue with chronic immunosuppressive therapy. 2. Anemia. His anemia is mild and stable and does not need any intervention at present. 3. Hypertension. Earlier his blood pressure was high at 182/80; however, now it is down to 140/90 mm of mercury. His chronic antihypertensive medications are not being changed. 4. Lower extremity edema. The patient has been on chronic diuretic therapy, and I will give him an extra dose of torsemide 10 mg this afternoon. 5. Hypercalcemia. This is related to calcitriol, which has already been stopped. The patient will be given one dose of Sensipar 30 mg tomorrow morning. I will put him on Sensipar 30 mg three times a week while he is here in the hospital.
[2019-06-30 19:43] VITALS: BP 133/65
[2019-06-30] MEDS: SENNA 8.6 MG TAB (SENOKOT) PO SCH (21:28)
[2019-06-30] MEDS: traZODone 25MG PER 1/2 TABLET PO SCH (21:28)
[2019-07-01] MEDS: diazePAM 2 MG TAB PO SCH ×3 (05:56→21:34)
[2019-07-01] MEDS: oxyCODONE 5MG TAB PO SCH ×3 (05:57→21:35)
[2019-07-01 07:49] LABS: PROTHROMBIN TIME 12.9 SECONDS (11.8-14.0)
[2019-07-01] MEDS: ASPIRIN 81 MG CHEW TABLET PO SCH (09:07)
[2019-07-01] MEDS: MAGNESIUM GLUCONATE 500 MG TAB PO SCH ×4 (09:07→21:36)
[2019-07-01] MEDS: PANTOPRAZOLE 40MG TAB (PROTONIX) PO SCH (09:07)
[2019-07-01] MEDS: VITAMIN B COMPLEX/VIT C CAP PO SCH (09:07)
[2019-07-01] MEDS: DOCUSATE SODIUM 100 MG CAP PO SCH ×2 (09:07→21:36)
[2019-07-01] MEDS: DIGOXIN 0.25 MG TAB PO SCH (09:08)
[2019-07-01] MEDS: predniSONE 5 MG TAB PO SCH (09:08)
[2019-07-01] MEDS: azaTHIOprine 50 MG TAB (J7500) PO SCH (09:09)
[2019-07-01] MEDS: GABAPENTIN 300 MG CAP PO SCH ×3 (09:09→21:36)
[2019-07-01] MEDS: POTASSIUM CHLORIDE 10 MEQ SR TABLET PO SCH (09:09)
[2019-07-01] MEDS: TORSEMIDE 10 MG TABLET PO SCH (09:09)
[2019-07-01] MEDS: BACTRIM 160MG/800MG DS TAB PO SCH ×2 (09:09→21:36)
[2019-07-01] MEDS: aMILoride 5 MG TAB PO SCH (09:09)
[2019-07-01] MEDS: ACETAMINOPHEN 500 MG TAB PO SCH ×3 (09:09→21:36)
[2019-07-01] MEDS: SIROLIMUS PO SCH (09:10)
[2019-07-01] MEDS: CINACALCET 30 MG TAB (SENSIPAR) PO SCH (09:10)
[2019-07-01] MEDS: ANALGESIC BALM CRM 120 GM TOP SCH ×3 (09:11→21:37)
[2019-07-01 14:00] VITALS: BP 140/84
[2019-07-01] MEDS: WARFARIN SOD 5 MG TAB PO SCH (17:46)
[2019-07-01] MEDS: ONDANSETRON 4 MG ORAL DISINTEGRATING TAB (Q0162 PER 1MG) SL PRN (18:46)
[2019-07-01 19:55] VITALS: BP 116/58
[2019-07-01] MEDS: SENNA 8.6 MG TAB (SENOKOT) PO SCH (21:34)
[2019-07-01] MEDS: traZODone 25MG PER 1/2 TABLET PO SCH (21:36)
[2019-07-02 05:33] VITALS: BP 118/64
[2019-07-02] MEDS: oxyCODONE 5MG TAB PO SCH ×3 (05:43→20:48)
[2019-07-02] MEDS: diazePAM 2 MG TAB PO SCH ×3 (05:43→20:48)
[2019-07-02] MEDS: PANTOPRAZOLE 40MG TAB (PROTONIX) PO SCH (08:40)
[2019-07-02] MEDS: ASPIRIN 81 MG CHEW TABLET PO SCH (08:40)
[2019-07-02] MEDS: POTASSIUM CHLORIDE 10 MEQ SR TABLET PO SCH (08:40)
[2019-07-02] MEDS: GABAPENTIN 300 MG CAP PO SCH ×3 (08:40→20:49)
[2019-07-02] MEDS: predniSONE 5 MG TAB PO SCH (08:40)
[2019-07-02] MEDS: DOCUSATE SODIUM 100 MG CAP PO SCH ×2 (08:40→20:49)
[2019-07-02] MEDS: VITAMIN B COMPLEX/VIT C CAP PO SCH (08:40)
[2019-07-02] MEDS: BACTRIM 160MG/800MG DS TAB PO SCH (08:40)
[2019-07-02] MEDS: DIGOXIN 0.25 MG TAB PO SCH (08:41)
[2019-07-02] MEDS: MAGNESIUM GLUCONATE 500 MG TAB PO SCH ×4 (08:41→20:49)
[2019-07-02] MEDS: ACETAMINOPHEN 500 MG TAB PO SCH ×3 (08:41→20:49)
[2019-07-02] MEDS: TORSEMIDE 10 MG TABLET PO SCH (08:41)
[2019-07-02] MEDS: aMILoride 5 MG TAB PO SCH (08:41)
[2019-07-02] MEDS: azaTHIOprine 50 MG TAB (J7500) PO SCH (08:42)
[2019-07-02] MEDS: SIROLIMUS PO SCH (08:42)
[2019-07-02] MEDS: ANALGESIC BALM CRM 120 GM TOP SCH ×3 (08:42→20:48)
[2019-07-02 08:43] LABS: INR 1.3; PROTHROMBIN TIME 15.9 SECONDS (11.8-14.0)
[2019-07-02 14:00] VITALS: BP 134/70
[2019-07-02] MEDS: WARFARIN SOD 5 MG TAB PO SCH (16:36)
--- NOTE | 2019-07-02 17:02 | IPNPDOC ---
Text Note Date of Service The patient was seen on 07/02/19. NOTE Subjective: Patient continues to complain of back pain, legs and neck pain. He denies fever, chills, nausea, vomiting, shortness of breath, palpitations, diarrhea or dysuria. Objective:Vitals (See below) General: Lying in bed, no acute distress, comfortable, AAOx3 HEENT: NC, AT CVS: +S1S2, RRR Lungs: CTAB, no crackles or wheezing Abdomen: Soft without distention or tenderness Extremities: +1 pitting edema bilaterally Assessment and plan Patient is 74 years old male with past medical history of kidney transplant, hypertension, severe osteoporosis currently in the ARU after transfer from [facility] where he had T11-T12, L4 and L5 laminectomy. Multiple vertebral fractures - 2/2 mechanical fall - L4-6 and T11-T12 compression fractures, s/p laminectomy 06/11/2019 - Transferred from [facility] neurosurgical team for continued physical therapy and rehabilitation - Seen by neurosurgery 06/28/2019, pending anticoagulation recs given ongoing upper extremity DVT during a period which he is supposed off anticoagulation for 2 weeks - Pain control and bowel regimen as per ARU - Patient will continue with physical therapy and occupation therapy at the direction of ARU Atrial fibrillation - Currently rate and rhythm controlled - metoprolol held due to hypotension - c/w with Digoxin, w/ levels check - Anticoagulation started with Coumadin on 06/28/19 -Continue to monitor INR. Keep INR in therapeutic range 2-3 IgA Nephropathy - s/p Renal transplant 2006 - s/p ESRD on HD - c/w Prednisone, Sirolimus and Azathioprine - Patient follows with Dr. Alcantar, being followed inpatient by Dr. Federico KHANNA DVT - Patient was found to have a DVT of his right upper extremity on 06/17/2019 at [facility], as a result of the midline -Was 2 weeks off Coumadin therapy after laminectomy Aortic stenosis - Clinically patient appears to have signs of fluid overload - Lower extremities do reveal 1+ pitting edema - ECHO 06/21: Preserved EF, unable to evaluate diastolic function, dilated right atrium, normal IVC size and collapsed against an elevated CVP, moderately severe ASA, mildmoderate AR, - c/w Torsemide 10 and Amiloride 5 HTN - Blood pressure is well controlled CAD - c/w ASA 81 DLP - Currently not on medications Neuropathy - c/w Gabapentin Iron deficiency anemia - Will follow Hg trend Anxiety - c/w Hydroxyzine and Diazepam GERD - c/w Protonix DVT prophylaxis - c/w TEDs/Sequentials Currently on Coumadin Disposition: - Otherwise continue w/ PT VS,Fishbone, I+O VS, Fishbone, I+O Vital Signs Date Time Temp Pulse Resp B/P (MAP) Pulse Ox O2 Delivery O2 Flow Rate FiO2 07/02/19 16:36 20 07/02/19 08:41 85 07/02/19 05:33 97.8 118/64 (82) 96 I&O- Last 24 Hours up to 6 AM 07/02/19 06:00 Intake Total 1200 ml Output Total 2300 ml Balance -1100 ml CICI LI DO Jul 02, 2019 17:02
--- NOTE | 2019-07-02 17:54 | IPNPDOC ---
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 He is asking for his pain medication earlier in the morning. REVIEW OF SYSTEMS: The following is a completed review of systems and has been reviewed. Review of systems otherwise unremarkable. PAIN: Patient self reports low back pain EYES: No recent vision changes EARS, NOSE, & THROAT: No throat pain, or dysphagia, or rhinorrhea CARDIOVASCULAR: Denies chest pain or palpitations PULMONARY: Denies shortness of breath GASTROINTESTINAL: Denies constipation/diarrhea GENITOURINARY: +dysuria with retention MUSCULOSKELETAL: +cervical and lumbar stenosis NEUROLOGICAL:no focal tremor or seizure activity HEMATOLOGICAL: +easy bruising SKIN: lumbar incision PSYCHIATRIC: Unremarkable All other review of systems found to be negative. PHYSICAL EXAMINATION: VITAL SIGNS: Please see below. GENERAL: Pleasant and cooperative. No acute distress. HEENT: PERRL. Extraocular movements intact. Clear conjunctiva CARDIOVASCULAR: Irregular rate and rhythm. No murmurs, rubs, or gallops LUNGS: Clear to auscultation bilaterally. No wheezes. No rhonchi ABDOMEN: Soft, nontender, nondistended. Positive bowel sounds. NEUROLOGICAL: Alert and oriented times three. Cranial nerves II through XII grossly intact. Sensation grossly intact in all 4 extremities EXTREMITIES: 4\5 strength bilateral upper extremities. 4-\5 strength right lower extremity. 4+/5 strength in left lower extremity. +bilateral calf edema left>right SKIN: lumbar incision and drain mildly erythematous, no induration LUE old AV fistula ASSESSMENT:74-year-old M with past medical history of IgA nephropathy s/p kidney transplant, lumbar stenosis with claudication who presents status post L4-5 laminectomy. PLAN: 1. rehab- PT strengthen/stretch/maintain ROM bilat LE, improve gait endurance, dynamic balance training, stairs, fall recovery- spinal precautions OT strengthen/stretch/maintain ROM bilat UE, improve coordination for optimal ADL management maintaining spinal precautions 2. Neuro/Ortho- patient s/p L4-L5 laminectomy with psh of multiple spine surgeries for cervical myelopathy and spinal stenosis with gait and balance impairment with recurrent falls -f/u neurosurgery 06-28-19 3. Cardio: pmh Afib currently on digoxin started at [facility] , beta-violette held at [facility] due to drops in BP -Mod-severe aortic stenosis c/u amiloride and Torsemide, medicine consulted to assist in management 4. Resp: encourage incentive spirometry and monitor for infection 5. Renal: s/p kidney transplant 2006 c/u prednisone, sirolimus, azathioprine -ok to use left arm for BPs as fistula is inactive -renal following, recs appreciated, CT abdomen-pelvis ordered per Dr. Alcantar 6. GI ppx: protonix, optimize bowel meds 7. DVT ppx: TEDs, +DVT RUE treatment on hold until cleared by neurosurgery 8. Pain: Tylenol, c/u gabapentin -patient reporting at home he takes valium and oxycodone together and has been doing this for years without falling, c/u combination while here with lower dose Valium (1mg) and will coordinate so patient receives it earlier in the morning 9. 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 ID: given immunocompromised state ordered Blood cx- negative 11. Psych: Insomnia, c/u trazodone 10. Dispo: 07-06-19 to home Allergies Coded Allergies: ciprofloxacin (Verified Allergy, Unknown, 12/20/18) amoxicillin (Verified Adverse Reaction, Intermediate, can take few prior to dentist but can not take for 10 days, 12/20/18) pregabalin (Verified Adverse Reaction, Intermediate, UNKNOWN, 12/20/18) tizanidine (Verified Adverse Reaction, Intermediate, 12/20/18) Quinolones (Verified Adverse Reaction, Mild, ANXIETY, 12/20/18) cefuroxime (Verified Adverse Reaction, Mild, ANXIETY, 12/20/18) codeine (Verified Adverse Reaction, Mild, AGITATION, 12/20/18) lorazepam (Verified Adverse Reaction, Mild, AGITATION, 12/20/18) Vital Signs Vital Signs Date Time Temp Pulse Resp B/P (MAP) Pulse Ox O2 Delivery O2 Flow Rate FiO2 07/02/19 16:36 20 07/02/19 08:41 85 07/02/19 05:33 97.8 118/64 (82) 96 Laboratory Data Labs 24H Laboratory Tests 2 07/02/19 08:06: Prothrombin Time 15.9H, Prothromb Time International Ratio 1.30 Current Medications Current Medications Current Medications Medications (Trade) Dose Ordered Sig/Dionte Route PRN Reason Start Time Stop Time Status Last Admin Dose Admin Acetaminophen (Tylenol Tab) 650 mg Q4HP PRN PO fever/MILD PAIN (PS 1-4) 06/20/19 17:00 06/22/19 13:54 DC Acetaminophen (Tylenol Tab) 1,000 mg TID PO 06/22/19 16:00 07/02/19 16:35 Amiloride HCl (Midamor) 5 mg DAILY PO 06/21/19 09:00 07/02/19 08:41 Aspirin (Aspirin Chewable) 81 mg DAILY PO 06/21/19 09:00 07/02/19 08:40 Azathioprine (Imuran) 100 mg DAILY PO 06/21/19 09:00 07/02/19 08:42 Bisacodyl (Dulcolax Suppository) 10 mg DAILYPRN PRN SD CONSTIPATION 06/20/19 17:00 Calcitriol (Rocaltrol) 0.25 mcg MoTuWeThFr@0900 PO 06/21/19 09:00 06/29/19 09:04 DC 06/29/19 08:49 Cinacalcet (Sensipar) 30 mg Q48H PO 07/01/19 09:00 07/01/19 09:10 Cyclobenzaprine HCl (Flexeril) 10 mg Q8HP PRN PO SPASMS 06/20/19 17:00 06/21/19 14:04 DC Diazepam (Valium) 1 mg 0600,1600,2100 PO 06/28/19 10:32 07/02/19 16:36 Diazepam (Valium) 1 mg TID PO 06/25/19 16:00 06/28/19 10:32 DC 06/28/19 08:15 Diazepam (Valium) 2 mg Q12HP PRN PO ANXIETY 06/20/19 17:00 06/22/19 13:53 DC 06/22/19 11:20 Diazepam (Valium) 2 mg TID PO 06/22/19 16:00 06/25/19 14:54 DC 06/25/19 08:30 Digoxin (Lanoxin) 0.25 mg DAILY PO 06/21/19 09:00 07/02/19 08:41 Docusate Sodium (Colace) 100 mg BID PO 06/20/19 21:00 07/02/19 08:40 Gabapentin (Neurontin) 300 mg BID@0900,1600 PO 06/21/19 09:00 07/02/19 16:36 Gabapentin (Neurontin) 600 mg QHS PO 06/20/19 21:00 07/01/19 21:36 Home Med (Med Rec Complete!) ASDIRECTED XX 06/20/19 18:00 06/20/19 18:08 DC Hydroxyzine HCl (Atarax) 25 mg Q6HP PRN PO ANXIETY 06/20/19 17:00 06/30/19 16:01 Magnesium Gluconate (Magnesium Gluconate) 500 mg QID PO 06/21/19 13:00 07/02/19 16:35 Magnesium Hydroxide (Milk Of Magnesia) 30 ml DAILYPRN PRN PO CONSTIPATION 06/20/19 17:00 06/29/19 10:01 Menthol/Methyl Salicylate (Bengay Cream) 1 dose TID TOP 06/25/19 16:00 07/01/19 21:37 Miscellaneous (Unresolved Clarification Entry) SEE LABEL COMMENTS DAILY XX 07/02/19 09:00 07/02/19 12:40 DC Miscellaneous (Unresolved Patient Own Med Order) SEE LABEL COMMENTS DAILY XX 06/20/19 09:00 06/21/19 14:50 DC Ondansetron HCl (Zofran Odt) 4 mg Q4HP PRN SL NAUSEA OR VOMITING 06/25/19 10:00 07/01/19 18:46 Ondansetron HCl (Zofran Odt) 4 mg Q6HP PRN PO NAUSEA OR VOMITING 06/20/19 17:00 06/25/19 10:03 DC 06/25/19 09:42 Oxycodone HCl (Roxicodone, Oxyir) 5 mg 0600,1600,2100 PO 06/28/19 10:34 07/02/19 16:36 Oxycodone HCl (Roxicodone, Oxyir) 5 mg Q6HP PRN PO PAIN 06/20/19 17:00 06/25/19 14:54 DC 06/25/19 06:55 Oxycodone HCl (Roxicodone, Oxyir) 5 mg TID PO 06/25/19 16:00 06/28/19 10:34 DC 06/28/19 08:18 Pantoprazole Sodium (Protonix) 40 mg DAILY PO 06/21/19 09:00 07/02/19 08:40 Patient Own Medication (Patient'S Own Med) TAKE 3 TABLETS BY MOUTH DAILY DAILY@0900 PO 06/22/19 09:00 07/02/19 08:42 Phenazopyridine HCl (Pyridium) 100 mg Q8H PO 06/26/19 22:00 06/28/19 06:01 DC 06/28/19 06:23 Potassium Chloride (Micro-K Extencaps) 10 meq DAILY PO 06/21/19 09:00 07/02/19 08:40 Prednisone (Deltasone) 5 mg DAILY PO 06/21/19 09:00 07/02/19 08:40 Senna (Senokot) 1 tab QHS PO 06/20/19 21:00 07/01/19 21:34 Torsemide (Demadex) 10 mg DAILY PO 06/21/19 09:00 06/22/19 15:42 DC 06/22/19 09:35 Torsemide (Demadex) 10 mg DAILY PO 06/23/19 09:00 07/02/19 08:41 Trazodone HCl (Desyrel) 25 mg QHS PO 06/26/19 21:00 07/01/19 21:36 Trimethoprim/ Sulfamethoxazole (Bactrim Ds, Septra Ds 160mg/ 800mg) 1 tab BID PO 06/21/19 09:00 07/02/19 12:40 DC 07/02/19 08:40 Vitamin B Complex/ Vitamin C (Therapeutic B Complex w/C) 1 cap DAILY PO 06/21/19 09:00 07/02/19 08:40 Warfarin Sodium (Coumadin) 2.5 mg DAILY@17 PO 06/29/19 17:00 07/01/19 11:56 DC 06/30/19 16:01 Warfarin Sodium (Coumadin) 5 mg DAILY@17 PO 07/01/19 17:00 07/02/19 16:36 FARHAN LAMAR MD Jul 02, 2019 17:54
--- NOTE | 2019-07-02 17:58 | IPNPDOC ---
PM&R Progress Note DATE OF SERVICE: Jul 02, 2019 [employer] Progress Note Subjective: Patient reporting he slept well last night because he turned over onto his left side. He reports when he is not using his cervical collar it feels like his throat is closing up and he has difficulty swallowing water. He says this sometimes happens when he doesn't wear the collar. REVIEW OF SYSTEMS: The following is a completed review of systems and has been reviewed. Review of systems otherwise unremarkable. PAIN: Patient self reports low back pain EYES: No recent vision changes EARS, NOSE, & THROAT: No throat pain, or dysphagia, or rhinorrhea CARDIOVASCULAR: Denies chest pain or palpitations PULMONARY: Denies shortness of breath GASTROINTESTINAL: Denies constipation/diarrhea GENITOURINARY: +dysuria with retention MUSCULOSKELETAL: +cervical and lumbar stenosis NEUROLOGICAL:no focal tremor or seizure activity HEMATOLOGICAL: +easy bruising SKIN: lumbar incision PSYCHIATRIC: Unremarkable All other review of systems found to be negative. PHYSICAL EXAMINATION: VITAL SIGNS: Please see below. GENERAL: Pleasant and cooperative. No acute distress. HEENT: PERRL. Extraocular movements intact. Clear conjunctiva CARDIOVASCULAR: Irregular rate and rhythm. No murmurs, rubs, or gallops LUNGS: Clear to auscultation bilaterally. No wheezes. No rhonchi ABDOMEN: Soft, nontender, nondistended. Positive bowel sounds. NEUROLOGICAL: Alert and oriented times three. Cranial nerves II through XII grossly intact. Sensation grossly intact in all 4 extremities EXTREMITIES: 4\5 strength bilateral upper extremities. 4-\5 strength right lower extremity. 4+/5 strength in left lower extremity. +bilateral calf edema left>right SKIN: lumbar incision and drain mildly erythematous, no induration LUE old AV fistula ASSESSMENT:74-year-old M with past medical history of IgA nephropathy s/p kidney transplant, lumbar stenosis with claudication who presents status post L4-5 laminectomy. PLAN: 1. rehab- PT strengthen/stretch/maintain ROM bilat LE, improve gait endurance, dynamic balance training, stairs, fall recovery- spinal precautions OT strengthen/stretch/maintain ROM bilat UE, improve coordination for optimal ADL management maintaining spinal precautions [employer] eval ordered for dysphagia screen 2. Neuro/Ortho- patient s/p L4-L5 laminectomy with psh of multiple spine surgeri es for cervical myelopathy and spinal stenosis with gait and balance impairment with recurrent falls -f/u neurosurgery postponed till after rehab stay 3. Cardio: pmh Afib currently on digoxin started at [facility] , beta-violette held at [facility] due to drops in BP -Mod-severe aortic stenosis c/u amiloride and Torsemide, medicine consulted to assist in management -Coumadin restarted 06-29-19 goal INR 2-3 4. Resp: encourage incentive spirometry and monitor for infection 5. Renal: s/p kidney transplant 2006 c/u prednisone, sirolimus, azathioprine -ok to use left arm for BPs as fistula is inactive -renal following, recs appreciated, CT abdomen-pelvis ordered per Dr. Alcantar 6. GI ppx: protonix, optimize bowel meds 7. DVT ppx: TEDs, +DVT RUE treatment initially on hold until cleared by neurosurgery- discussed with [facility] neurosurgeon on-call 06-29-19 ok to restart AC, started on Coumadin over the weekend, patient unaware of his dose, per his pharmacy it is 5mg daily 8. Pain: Tylenol, c/u gabapentin -patient reporting at home he takes valium and oxycodone together and has been doing this for years without falling, c/u combination while here with lower dose Valium (1mg) and will coordinate so patient receives it earlier in the morning 9. : patient had +Ucx for E coli s/p 14 day course of Bactrim, dysuria improving 10. ID: given immunocompromised state ordered Blood cx- negative 11. Psych: Insomnia, c/u trazodone 10. Dispo: 07-06-19 to home Allergies Coded Allergies: ciprofloxacin (Verified Allergy, Unknown, 12/20/18) amoxicillin (Verified Adverse Reaction, Intermediate, can take few prior to dentist but can not take for 10 days, 12/20/18) pregabalin (Verified Adverse Reaction, Intermediate, UNKNOWN, 12/20/18) tizanidine (Verified Adverse Reaction, Intermediate, 12/20/18) Quinolones (Verified Adverse Reaction, Mild, ANXIETY, 12/20/18) cefuroxime (Verified Adverse Reaction, Mild, ANXIETY, 12/20/18) codeine (Verified Adverse Reaction, Mild, AGITATION, 12/20/18) lorazepam (Verified Adverse Reaction, Mild, AGITATION, 12/20/18) Vital Signs Vital Signs Date Time Temp Pulse Resp B/P (MAP) Pulse Ox O2 Delivery O2 Flow Rate FiO2 07/02/19 16:36 20 07/02/19 08:41 85 07/02/19 05:33 97.8 118/64 (82) 96 Laboratory Data Labs 24H Laboratory Tests 2 07/02/19 08:06: Prothrombin Time 15.9H, Prothromb Time International Ratio 1.30 Current Medications Current Medications Current Medications Medications (Trade) Dose Ordered Sig/Dionte Route PRN Reason Start Time Stop Time Status Last Admin Dose Admin Acetaminophen (Tylenol Tab) 650 mg Q4HP PRN PO fever/MILD PAIN (PS 1-4) 06/20/19 17:00 06/22/19 13:54 DC Acetaminophen (Tylenol Tab) 1,000 mg TID PO 06/22/19 16:00 07/02/19 16:35 Amiloride HCl (Midamor) 5 mg DAILY PO 06/21/19 09:00 07/02/19 08:41 Aspirin (Aspirin Chewable) 81 mg DAILY PO 06/21/19 09:00 07/02/19 08:40 Azathioprine (Imuran) 100 mg DAILY PO 06/21/19 09:00 07/02/19 08:42 Bisacodyl (Dulcolax Suppository) 10 mg DAILYPRN PRN [place] CONSTIPATION 06/20/19 17:00 Calcitriol (Rocaltrol) 0.25 mcg MoTuWeThFr@0900 PO 06/21/19 09:00 06/29/19 09:04 DC 06/29/19 08:49 Cinacalcet (Sensipar) 30 mg Q48H PO 07/01/19 09:00 07/01/19 09:10 Cyclobenzaprine HCl (Flexeril) 10 mg Q8HP PRN PO SPASMS 06/20/19 17:00 06/21/19 14:04 DC Diazepam (Valium) 1 mg 0600,1600,2100 PO 06/28/19 10:32 07/02/19 16:36 Diazepam (Valium) 1 mg TID PO 06/25/19 16:00 06/28/19 10:32 DC 06/28/19 08:15 Diazepam (Valium) 2 mg Q12HP PRN PO ANXIETY 06/20/19 17:00 06/22/19 13:53 DC 06/22/19 11:20 Diazepam (Valium) 2 mg TID PO 06/22/19 16:00 06/25/19 14:54 DC 06/25/19 08:30 Digoxin (Lanoxin) 0.25 mg DAILY PO 06/21/19 09:00 07/02/19 08:41 Docusate Sodium (Colace) 100 mg BID PO 06/20/19 21:00 07/02/19 08:40 Gabapentin (Neurontin) 300 mg BID@0900,1600 PO 06/21/19 09:00 07/02/19 16:36 Gabapentin (Neurontin) 600 mg QHS PO 06/20/19 21:00 07/01/19 21:36 Home Med (Med Rec Complete!) ASDIRECTED XX 06/20/19 18:00 06/20/19 18:08 DC Hydroxyzine HCl (Atarax) 25 mg Q6HP PRN PO ANXIETY 06/20/19 17:00 06/30/19 16:01 Magnesium Gluconate (Magnesium Gluconate) 500 mg QID PO 06/21/19 13:00 07/02/19 16:35 Magnesium Hydroxide (Milk Of Magnesia) 30 ml DAILYPRN PRN PO CONSTIPATION 06/20/19 17:00 06/29/19 10:01 Menthol/Methyl Salicylate (Bengay Cream) 1 dose TID TOP 06/25/19 16:00 07/01/19 21:37 Miscellaneous (Unresolved Clarification Entry) SEE LABEL COMMENTS DAILY XX 07/02/19 09:00 07/02/19 12:40 DC Miscellaneous (Unresolved Patient Own Med Order) SEE LABEL COMMENTS DAILY XX 06/20/19 09:00 06/21/19 14:50 DC Ondansetron HCl (Zofran Odt) 4 mg Q4HP PRN SL NAUSEA OR VOMITING 06/25/19 10:00 07/01/19 18:46 Ondansetron HCl (Zofran Odt) 4 mg Q6HP PRN PO NAUSEA OR VOMITING 06/20/19 17:00 06/25/19 10:03 DC 06/25/19 09:42 Oxycodone HCl (Roxicodone, Oxyir) 5 mg 0600,1600,2100 PO 06/28/19 10:34 07/02/19 16:36 Oxycodone HCl (Roxicodone, Oxyir) 5 mg Q6HP PRN PO PAIN 06/20/19 17:00 06/25/19 14:54 DC 06/25/19 06:55 Oxycodone HCl (Roxicodone, Oxyir) 5 mg TID PO 06/25/19 16:00 06/28/19 10:34 DC 06/28/19 08:18 Pantoprazole Sodium (Protonix) 40 mg DAILY PO 06/21/19 09:00 07/02/19 08:40 Patient Own Medication (Patient'S Own Med) TAKE 3 TABLETS BY MOUTH DAILY DAILY@0900 PO 06/22/19 09:00 07/02/19 08:42 Phenazopyridine HCl (Pyridium) 100 mg Q8H PO 06/26/19 22:00 06/28/19 06:01 DC 06/28/19 06:23 Potassium Chloride (Micro-K Extencaps) 10 meq DAILY PO 06/21/19 09:00 07/02/19 08:40 Prednisone (Deltasone) 5 mg DAILY PO 06/21/19 09:00 07/02/19 08:40 Senna (Senokot) 1 tab QHS PO 06/20/19 21:00 07/01/19 21:34 Torsemide (Demadex) 10 mg DAILY PO 06/21/19 09:00 06/22/19 15:42 DC 06/22/19 09:35 Torsemide (Demadex) 10 mg DAILY PO 06/23/19 09:00 07/02/19 08:41 Trazodone HCl (Desyrel) 25 mg QHS PO 06/26/19 21:00 07/01/19 21:36 Trimethoprim/ Sulfamethoxazole (Bactrim Ds, Septra Ds 160mg/ 800mg) 1 tab BID PO 06/21/19 09:00 07/02/19 12:40 DC 07/02/19 08:40 Vitamin B Complex/ Vitamin C (Therapeutic B Complex w/C) 1 cap DAILY PO 06/21/19 09:00 07/02/19 08:40 Warfarin Sodium (Coumadin) 2.5 mg DAILY@17 PO 06/29/19 17:00 07/01/19 11:56 DC 06/30/19 16:01 Warfarin Sodium (Coumadin) 5 mg DAILY@17 PO 07/01/19 17:00 07/02/19 16:36 FARHAN LAMAR MD Jul 02, 2019 17:58
[2019-07-02 20:40] VITALS: BP 135/72
[2019-07-02] MEDS: SENNA 8.6 MG TAB (SENOKOT) PO SCH (20:49)
[2019-07-02] MEDS: traZODone 25MG PER 1/2 TABLET PO SCH (20:49)
[2019-07-03] MEDS: hydrOXYzine 25 MG TAB PO PRN (03:22)
[2019-07-03] MEDS: diazePAM 2 MG TAB PO SCH ×3 (06:12→20:18)
[2019-07-03] MEDS: oxyCODONE 5MG TAB PO SCH ×3 (06:12→20:19)
[2019-07-03 06:14] VITALS: BP 112/68
[2019-07-03 06:44] LABS: BASO % 0.2 % (0.0-1.0); EOS % 0.6 % (0.0-3.0); HEMATOCRIT 32.3 % (42.0-52.0); LYMPH # 1.9 10^3/uL (1.5-5.0); LYMPH % 29.8 % (24.0-44.0); MEAN CORPUSCULAR HEMOGLOBIN 29.5 pg (27.0-33.0); MEAN CORPUSCULAR VOLUME 95.3 fl (80.0-96.0); MONO # 0.7 10^3/uL (0.0-0.8); MONO % 11.4 % (0.0-5.0); NEUTROPHILS # 3.7 10^3/uL (1.5-8.5); NEUTROPHILS % 56.3 % (36.0-66.0); PLATELET COUNT, AUTOMATED 337 10^3/uL (150-450); RED BLOOD COUNT 3.39 10^6/uL (4.30-6.10); WHITE BLOOD COUNT 6.5 10^3/uL (4.0-10.0)
[2019-07-03 06:56] LABS: INR 1.9; PROTHROMBIN TIME 21.6 SECONDS (11.8-14.0)
[2019-07-03 07:21] LABS: BLOOD UREA NITROGEN 12 MG/DL (7-18); CALCIUM LEVEL 10.1 MG/DL (8.8-10.2); CARBON DIOXIDE LEVEL 30 MEQ/L (21-32); CHLORIDE LEVEL 103 MEQ/L (98-107); CREATININE FOR GFR 0.76 MG/DL (0.70-1.30); DIGOXIN LEVEL 1.2 NG/ML (0.5-2.0); GLOMERULAR FILTRATION RATE > 60.0 (>42); GLUCOSE, FASTING 108 MG/DL (70-100); POTASSIUM SERUM 4.3 MEQ/L (3.5-5.1); SODIUM LEVEL 139 MEQ/L (136-145)
[2019-07-03] MEDS: SIROLIMUS PO SCH (08:22)
[2019-07-03] MEDS: DIGOXIN 0.25 MG TAB PO SCH (08:23)
[2019-07-03] MEDS: ACETAMINOPHEN 500 MG TAB PO SCH ×3 (08:23→20:18)
[2019-07-03] MEDS: aMILoride 5 MG TAB PO SCH (08:24)
[2019-07-03] MEDS: CINACALCET 30 MG TAB (SENSIPAR) PO SCH (08:24)
[2019-07-03] MEDS: azaTHIOprine 50 MG TAB (J7500) PO SCH (08:24)
[2019-07-03] MEDS: POTASSIUM CHLORIDE 10 MEQ SR TABLET PO SCH (08:24)
[2019-07-03] MEDS: ASPIRIN 81 MG CHEW TABLET PO SCH (08:24)
[2019-07-03] MEDS: PANTOPRAZOLE 40MG TAB (PROTONIX) PO SCH (08:25)
[2019-07-03] MEDS: VITAMIN B COMPLEX/VIT C CAP PO SCH (08:25)
[2019-07-03] MEDS: MAGNESIUM GLUCONATE 500 MG TAB PO SCH ×4 (08:25→20:19)
[2019-07-03] MEDS: ANALGESIC BALM CRM 120 GM TOP SCH ×3 (08:25→20:20)
[2019-07-03] MEDS: GABAPENTIN 300 MG CAP PO SCH ×3 (08:25→20:18)
[2019-07-03] MEDS: DOCUSATE SODIUM 100 MG CAP PO SCH ×2 (08:26→20:19)
[2019-07-03] MEDS: predniSONE 5 MG TAB PO SCH (08:28)
[2019-07-03] MEDS: TORSEMIDE 10 MG TABLET PO SCH (08:28)
--- NOTE | 2019-07-03 11:32 | REP ---
Right upper extremity deep vein duplex ultrasound for thrombus: The deep veins demonstrate normal compression, normal Doppler color flow and normal Doppler waveforms with respiration augmentation at multiple levels from the brachial veins to the jugular vein. Impression: There is no right upper extremity deep vein thrombus. However, there is a focal zone of acoustic shadowing measuring approximately 9 mm in diameter arising from the soft tissues of the right bicep, possibly a calcification. Plain films of the right humerus might be worthwhile for further evaluation of this finding. Electronically Signed by Fantasma Clements MD 07/03/2019 11:23 A
--- NOTE | 2019-07-03 11:43 | REP ---
ULTRASOUND RIGHT RENAL TRANSPLANT: Real-time sonographic evaluation of the right renal transplant performed with duplex Doppler evaluation. Transplant measures 13.3 x 5.7 x 8.0 cm. There is very mild hydronephrosis. A cyst in the upper aspect measures 3.0 x 2.4 x 2.9 cm. There is another adjacent subcentimeter cyst just superior to that approximately 7 mm. 8 mm calculus is seen in the lower pole. Duplex Doppler evaluation of the intrarenal vasculature demonstrates resistive indices in the upper, middle, and lower thirds ranged between 0.72 and 0.77 and acceleration times to range between 0.04 and 0.06. Peak systolic velocity of the iliac artery above the level of the renal artery anastomosis is 134 cm/s. Peak systolic velocity of the transplant renal artery at the anastomosis is 233 cm/s, mid aspect 192 cm/s and at the renal hilum 67.8 cm/s. Renal to iliac artery ratio is 1.7. There is patent flow of the main renal vein. Doppler evaluation at the urinary bladder shows a right ureteral jet. IMPRESSION: Right renal transplant demonstrates very mild hydronephrosis with 3 cm cyst in the upper pole and 8 mm calculus in the lower pole. There is no definite duplex Doppler sonographic evidence of hemodynamically significant stenosis of the transplant renal artery. Electronically Signed by Fantasma Dunn MD 07/04/2019 04:13 P
--- NOTE | 2019-07-03 12:37 | IPNPDOC ---
PM&R Progress Note DATE OF SERVICE: Jul 03, 2019 [employer] Progress Note Subjective: REVIEW OF SYSTEMS: The following is a completed review of systems and has been reviewed. Review of systems otherwise unremarkable. PAIN: Patient self reports low back pain EYES: No recent vision changes EARS, NOSE, & THROAT: No throat pain, or dysphagia, or rhinorrhea CARDIOVASCULAR: Denies chest pain or palpitations PULMONARY: Denies shortness of breath GASTROINTESTINAL: Denies constipation/diarrhea GENITOURINARY: +dysuria with retention MUSCULOSKELETAL: +cervical and lumbar stenosis NEUROLOGICAL:no focal tremor or seizure activity HEMATOLOGICAL: +easy bruising SKIN: lumbar incision PSYCHIATRIC: Unremarkable All other review of systems found to be negative. PHYSICAL EXAMINATION: VITAL SIGNS: Please see below. GENERAL: Pleasant and cooperative. No acute distress. HEENT: PERRL. Extraocular movements intact. Clear conjunctiva CARDIOVASCULAR: Irregular rate and rhythm. No murmurs, rubs, or gallops LUNGS: Clear to auscultation bilaterally. No wheezes. No rhonchi ABDOMEN: Soft, nontender, nondistended. Positive bowel sounds. NEUROLOGICAL: Alert and oriented times three. Cranial nerves II through XII grossly intact. Sensation grossly intact in all 4 extremities EXTREMITIES: 4\\5 strength bilateral upper extremities. 4-\\5 strength right lower extremity. 4+/5 strength in left lower extremity. +bilateral calf edema left>right SKIN: lumbar incision and drain mildly erythematous, no induration LUE old AV fistula ASSESSMENT:74-year-old M with past medical history of IgA nephropathy s/p kidney transplant, lumbar stenosis with claudication who presents status post L4-5 laminectomy. PLAN: 1. rehab- PT strengthen/stretch/maintain ROM bilat LE, improve gait endurance, dynamic balance training, stairs, fall recovery- spinal precautions OT strengthen/stretch/maintain ROM bilat UE, improve coordination for optimal ADL management maintaining spinal precautions [employer] eval ordered for dysphagia screen 2. Neuro/Ortho- patient s/p L4-L5 laminectomy with psh of multiple spine surgeries for cervical myelopathy and spinal stenosis with gait and balance impairment with recurrent falls -f/u neurosurgery postponed till after rehab stay 3. Cardio: pmh Afib currently on digoxin started at [facility] , beta-violette held at [facility] due to drops in BP -Mod-severe aortic stenosis c/u amiloride and Torsemide, medicine consulted to assist in management -Coumadin restarted 06-29-19 goal INR 2-3 4. Resp: encourage incentive spirometry and monitor for infection 5. Renal: s/p kidney transplant 2006 c/u prednisone, sirolimus, azathioprine -ok to use left arm for BPs as fistula is inactive -renal following, recs appreciated, CT abdomen-pelvis ordered per Dr. Alcantar 6. GI ppx: protonix, optimize bowel meds 7. DVT ppx: TEDs, +DVT RUE on admission, US today shows resolution of DVT 8. Pain: Tylenol, c/u gabapentin -patient reporting at home he takes valium and oxycodone together and has been doing this for years without falling, c/u combination while here with lower dose Valium (1mg) and will coordinate so patient receives it earlier in the morning 9. : patient had +Ucx for E coli s/p 14 day course of Bactrim, dysuria improving, however episode of hematuria overnight, repeat UA ordered and REnal US- showing mild hydronephrosis with 3 cm cyst the upper pole and 8mm calculus in the lower pole".-discussed ese chichi Alcantar who recommends no intervention at this time, but will come see the patient tomorrow 10. ID: given immunocompromised state ordered Blood cx- negative 11. Psych: Insomnia, c/u trazodone 10. Dispo: 07-06-19 to home Allergies Coded Allergies: ciprofloxacin (Verified Allergy, Unknown, 12/20/18) amoxicillin (Verified Adverse Reaction, Intermediate, can take few prior to dentist but can not take for 10 days, 12/20/18) pregabalin (Verified Adverse Reaction, Intermediate, UNKNOWN, 12/20/18) tizanidine (Verified Adverse Reaction, Intermediate, 12/20/18) Quinolones (Verified Adverse Reaction, Mild, ANXIETY, 12/20/18) cefuroxime (Verified Adverse Reaction, Mild, ANXIETY, 12/20/18) codeine (Verified Adverse Reaction, Mild, AGITATION, 12/20/18) lorazepam (Verified Adverse Reaction, Mild, AGITATION, 12/20/18) Vital Signs Vital Signs Date Time Temp Pulse Resp B/P (MAP) Pulse Ox O2 Delivery O2 Flow Rate FiO2 07/03/19 08:23 80 07/03/19 07:12 18 07/03/19 06:14 98.5 112/68 (83) 99 Laboratory Data CBC/BMP Laboratory Tests 07/03/19 06:33 Red Blood Count 3.39 L, Mean Corpuscular Volume 95.3, Mean Corpuscular Hemoglobin 29.5, Mean Corpuscular Hemoglobin Concent 31.0 L, Red Cell Distribution Width 16.2 H, Neutrophils (%) (Auto) 56.3, Lymphocytes (%) (Auto) 29.8, Monocytes (%) (Auto) 11.4 H, Eosinophils (%) (Auto) 0.6, Basophils (%) (A uto) 0.2, Neutrophils # (Auto) 3.7, Lymphocytes # (Auto) 1.9, Monocytes # (Auto) 0.7, Eosinophils # (Auto) 0.0, Basophils # (Auto) 0.0, Calcium Level 10.1 Labs 24H Laboratory Tests 2 07/03/19 06:33: Immature Granulocyte % (Auto) 1.7, White Blood Count 6.5, Red Blood Count 3.39L, Hemoglobin 10.0L, Hematocrit 32.3L, Mean Corpuscular Volume 95.3, Mean Corpusc ular Hemoglobin 29.5, Mean Corpuscular Hemoglobin Concent 31.0L, Red Cell Distribution Width 16.2H, Platelet Count 337, Neutrophils (%) (Auto) 56.3, Lymphocytes (%) (Auto) 29.8, Monocytes (%) (Auto) 11.4H, Eosinophils (%) (Auto) 0.6, Basophils (%) (Auto) 0.2, Neutrophils # (Auto) 3.7, Lymphocytes # (Auto) 1.9, Monocytes # (Auto) 0.7, Eosinophils # (Auto) 0.0, Basophils # (Auto) 0.0, Nucleated Red Blood Cells % (auto) 0.0, Prothrombin Time 21.6H, Prothromb Time International Ratio 1.90, Anion Gap 6L, Glomerular Filtration Rate > 60.0, Blood Urea Nitrogen 12, Creatinine 0.76, Sodium Level 139, Potassium Level 4.3, Chloride Level 103, Carbon Dioxide Level 30, Calcium Level 10.1, Digoxin Level 1 .2 07/03/19 06:54: Urine Color SANDEEP, Urine Appearance CLOUDYH, Urine pH 7.0, Urine Specific [place] 1.010, Urine Protein 2+H, Urine Glucose (UA) NEGATIVE, Urine Ketones NEGATIVE, Urine Blood 3+H, Urine Nitrite NEGATIVE, Urine Bilirubin NEGATIVE, Urine Urobilinogen 0.2, Urine Leukocyte Esterase TRACEH, Urine WBC (Auto) 9H, Urine RBC (Auto) TNTCH, Urine Hyaline Casts (Auto) 0, Urine Bacteria (Auto) 1+H, Urine Squamous Epithelial Cells 0, Urine Amorphous Sediment MODERATEH, Urine Mucus (Auto) SMALL, Urine Sperm (Auto) Microbiology Microbiology 07/03/19 Urine Culture, Received Pending Current Medications Current Medications Current Medications Medications (Trade) Dose Ordered Sig/Dionte Route PRN Reason Start Time Stop Time Status Last Admin Dose Admin Acetaminophen (Tylenol Tab) 650 mg Q4HP PRN PO fever/MILD PAIN (PS 1-4) 06/20/19 17:00 06/22/19 13:54 DC Acetaminophen (Tylenol Tab) 1,000 mg TID PO 06/22/19 16:00 07/03/19 08:23 Amiloride HCl (Midamor) 5 mg DAILY PO 06/21/19 09:00 07/03/19 08:24 Aspirin (Aspirin Chewable) 81 mg DAILY PO 06/21/19 09:00 07/03/19 08:24 Azathioprine (Imuran) 100 mg DAILY PO 06/21/19 09:00 07/03/19 08:24 Bisacodyl (Dulcolax Suppository) 10 mg DAILYPRN PRN [place] CONSTIPATION 06/20/19 17:00 Calcitriol (Rocaltrol) 0.25 mcg MoTuWeThFr@0900 PO 06/21/19 09:00 06/29/19 09:04 DC 06/29/19 08:49 Cinacalcet (Sensipar) 30 mg Q48H PO 07/01/19 09:00 07/03/19 08:24 Cyclobenzaprine HCl (Flexeril) 10 mg Q8HP PRN PO SPASMS 06/20/19 17:00 06/21/19 14:04 DC Diazepam (Valium) 1 mg 0600,1600,2100 PO 06/28/19 10:32 07/03/19 06:12 Diazepam (Valium) 1 mg TID PO 06/25/19 16:00 06/28/19 10:32 DC 06/28/19 08:15 Diazepam (Valium) 2 mg Q12HP PRN PO ANXIETY 06/20/19 17:00 06/22/19 13:53 DC 06/22/19 11:20 Diazepam (Valium) 2 mg TID PO 06/22/19 16:00 06/25/19 14:54 DC 06/25/19 08:30 Digoxin (Lanoxin) 0.25 mg DAILY PO 06/21/19 09:00 07/03/19 08:23 Docusate Sodium (Colace) 100 mg BID PO 06/20/19 21:00 07/03/19 08:26 Gabapentin (Neurontin) 300 mg BID@0900,1600 PO 06/21/19 09:00 07/03/19 08:25 Gabapentin (Neurontin) 600 mg QHS PO 06/20/19 21:00 07/02/19 20:49 Home Med (Med Rec Complete!) ASDIRECTED XX 06/20/19 18:00 06/20/19 18:08 DC Hydroxyzine HCl (Atarax) 25 mg Q6HP PRN PO ANXIETY 06/20/19 17:00 07/03/19 03:22 Magnesium Gluconate (Magnesium Gluconate) 500 mg QID PO 06/21/19 13:00 07/03/19 12:08 Magnesium Hydroxide (Milk Of Magnesia) 30 ml DAILYPRN PRN PO CONSTIPATION 06/20/19 17:00 06/29/19 10:01 Menthol/Methyl Salicylate (Bengay Cream) 1 dose TID TOP 06/25/19 16:00 07/03/19 08:25 Miscellaneous (Unresolved Clarification Entry) SEE LABEL COMMENTS DAILY XX 07/02/19 09:00 07/02/19 12:40 DC Miscellaneous (Unresolved Patient Own Med Order) SEE LABEL COMMENTS DAILY XX 06/20/19 09:00 06/21/19 14:50 DC Ondansetron HCl (Zofran Odt) 4 mg Q4HP PRN SL NAUSEA OR VOMITING 06/25/19 10:00 07/01/19 18:46 Ondansetron HCl (Zofran Odt) 4 mg Q6HP PRN PO NAUSEA OR VOMITING 06/20/19 17:00 06/25/19 10:03 DC 06/25/19 09:42 Oxycodone HCl (Roxicodone, Oxyir) 5 mg 0600,1600,2100 PO 06/28/19 10:34 07/03/19 06:12 Oxycodone HCl (Roxicodone, Oxyir) 5 mg Q6HP PRN PO PAIN 06/20/19 17:00 06/25/19 14:54 DC 06/25/19 06:55 Oxycodone HCl (Roxicodone, Oxyir) 5 mg TID PO 06/25/19 16:00 06/28/19 10:34 DC 06/28/19 08:18 Pantoprazole Sodium (Protonix) 40 mg DAILY PO 06/21/19 09:00 07/03/19 08:25 Patient Own Medication (Patient'S Own Med) TAKE 3 TABLETS BY MOUTH DAILY DAILY@0900 PO 06/22/19 09:00 07/03/19 08:22 Phenazopyridine HCl (Pyridium) 100 mg Q8H PO 06/26/19 22:00 06/28/19 06:01 DC 06/28/19 06:23 Potassium Chloride (Micro-K Extencaps) 10 meq DAILY PO 06/21/19 09:00 07/03/19 08:24 Prednisone (Deltasone) 5 mg DAILY PO 06/21/19 09:00 07/03/19 08:28 Senna (Senokot) 1 tab QHS PO 06/20/19 21:00 07/02/19 20:49 Torsemide (Demadex) 10 mg DAILY PO 06/21/19 09:00 06/22/19 15:42 DC 06/22/19 09:35 Torsemide (Demadex) 10 mg DAILY PO 06/23/19 09:00 07/03/19 08:28 Trazodone HCl (Desyrel) 25 mg QHS PO 06/26/19 21:00 07/02/19 20:49 Trimethoprim/ Sulfamethoxazole (Bactrim Ds, Septra Ds 160mg/ 800mg) 1 tab BID PO 06/21/19 09:00 07/02/19 12:40 DC 07/02/19 08:40 Vitamin B Complex/ Vitamin C (Therapeutic B Complex w/C) 1 cap DAILY PO 06/21/19 09:00 07/03/19 08:25 Warfarin Sodium (Coumadin) 2.5 mg DAILY@17 PO 06/29/19 17:00 07/01/19 11:56 DC 06/30/19 16:01 Warfarin Sodium (Coumadin) 5 mg DAILY@17 PO 07/01/19 17:00 07/02/19 16:36 FARHAN LAMAR MD Jul 03, 2019 12:37
[2019-07-03 14:00] VITALS: BP 128/63
[2019-07-03] MEDS ORDERED: PILL CUTTER 1 EACH XX PRN (16:15)
[2019-07-03] MEDS: WARFARIN SOD 5 MG TAB PO SCH (17:35)
[2019-07-03 20:00] VITALS: BP 129/64
[2019-07-03] MEDS: SENNA 8.6 MG TAB (SENOKOT) PO SCH (20:19)
[2019-07-03] MEDS: traZODone 25MG PER 1/2 TABLET PO SCH (20:20)
[2019-07-03] MEDS: AMITRIPTYLINE 25 MG TAB PO SCH (20:20)
[2019-07-03] MEDS: diazePAM 2 MG TAB PO PRN (23:46)
[2019-07-04] MEDS: diazePAM 2 MG TAB PO SCH ×3 (05:16→21:58)
[2019-07-04] MEDS: oxyCODONE 5MG TAB PO SCH ×3 (05:16→21:59)
[2019-07-04 06:00] VITALS: BP 142/68
[2019-07-04 06:43] LABS: BASO % 0.3 % (0.0-1.0); EOS # 0.1 10^3/uL (0.0-0.5); EOS % 0.9 % (0.0-3.0); HEMATOCRIT 34.2 % (42.0-52.0); HEMOGLOBIN 10.5 g/dl (13.5-17.5); LYMPH # 2.2 10^3/uL (1.5-5.0); LYMPH % 32.9 % (24.0-44.0); MEAN CORPUSCULAR HEMOGLOBIN 29.2 pg (27.0-33.0); MEAN CORPUSCULAR HGB CONC 30.7 g/dl (32.0-36.5); MEAN CORPUSCULAR VOLUME 95.3 fl (80.0-96.0); MONO # 0.8 10^3/uL (0.0-0.8); MONO % 12.5 % (0.0-5.0); NEUTROPHILS # 3.4 10^3/uL (1.5-8.5); PLATELET COUNT, AUTOMATED 325 10^3/uL (150-450); RED BLOOD COUNT 3.59 10^6/uL (4.30-6.10); WHITE BLOOD COUNT 6.5 10^3/uL (4.0-10.0)
[2019-07-04 06:55] LABS: INR 2.46; PROTHROMBIN TIME 26.5 SECONDS (11.8-14.0)
[2019-07-04] MEDS: SIROLIMUS PO SCH (08:26)
[2019-07-04] MEDS: MAGNESIUM GLUCONATE 500 MG TAB PO SCH ×4 (08:26→21:59)
[2019-07-04] MEDS: aMILoride 5 MG TAB PO SCH (08:26)
[2019-07-04] MEDS: ASPIRIN 81 MG CHEW TABLET PO SCH (08:26)
[2019-07-04] MEDS: VITAMIN B COMPLEX/VIT C CAP PO SCH (08:26)
[2019-07-04] MEDS: azaTHIOprine 50 MG TAB (J7500) PO SCH (08:28)
[2019-07-04] MEDS: ACETAMINOPHEN 500 MG TAB PO SCH ×3 (08:28→21:59)
[2019-07-04] MEDS: PANTOPRAZOLE 40MG TAB (PROTONIX) PO SCH (08:29)
[2019-07-04] MEDS: GABAPENTIN 300 MG CAP PO SCH ×3 (08:29→22:00)
[2019-07-04] MEDS: DIGOXIN 0.25 MG TAB PO SCH (08:29)
[2019-07-04] MEDS: DOCUSATE SODIUM 100 MG CAP PO SCH ×2 (08:29→22:00)
[2019-07-04] MEDS: TORSEMIDE 10 MG TABLET PO SCH (08:29)
[2019-07-04] MEDS: predniSONE 5 MG TAB PO SCH (08:29)
[2019-07-04] MEDS: POTASSIUM CHLORIDE 10 MEQ SR TABLET PO SCH (08:29)
[2019-07-04] MEDS: ANALGESIC BALM CRM 120 GM TOP SCH ×3 (08:30→21:00)
[2019-07-04] MEDS: MOM 30ML SUSPENSION UDC PO PRN (08:47)
[2019-07-04] MEDS ORDERED: MIRALAX *UNIT DOSE* 17GM PACKET PO PRN (12:00)
[2019-07-04] MEDS: diazePAM 2 MG TAB PO PRN (12:05)
--- NOTE | 2019-07-04 13:20 | IPN ---
DATE: 07/04/2019 Mr. Kwon is seen this morning on his bedside. I received a call from Dr. Pennington yesterday afternoon about his right lower quadrant pain and dysuria. Patient has transplant kidney in his right lower quadrant. He had a CT scan of abdomen and pelvis done on June 22 with two nonobstructing calculi without any hydronephrosis and a renal cyst which is unchanged. The patient did have hematuria previously and was treated with Bactrim for 2 weeks for possible UTI. His symptoms never completely resolved but they did improve. Now since yesterday he has complained of pain in his right lower quadrant and groin area. He has no fever or chills. He does have known history of left inguinal hernia. The patient had an ultrasound done on July 03 due to discomfort in his transplant kidney area and groin area. Ultrasound showed only one stone with mild hydronephrosis. PHYSICAL EXAMINATION: The patient is awake and alert and without any acute distress. Temperature is 97.4 degrees Fahrenheit, heart rate 76 per minute and respiratory rate 18 per minute. Blood pressure 142/68 mmHg and oxygen saturation 97% on room air. His head is atraumatic. Neck is supple and without JVD or thyroid enlargement. Heart sounds regular and with systolic murmur, grade 2/6, which is unchanged. Lungs with slightly diminished breath sounds at bases. Abdomen is soft and old surgical scars are all well-healed. He has a small fluid collection in his anterior abdominal wall where he had a seroma just above the mesh for his incisional hernia repair. He has a large left inguinal hernia which is not easily reducible and a small right inguinal hernia which was easily reducible. He has some tenderness in right lower quadrant around the transplant kidney. Extremities have no cyanosis or clubbing. Neurologically, he is at his baseline mentation. Today's labs show WBC count 6.5, hemoglobin 10.5 and hematocrit 34.2. Platelets 325. Sodium 139, potassium 4.3, CO2 30, BUN 12 and creatinine 0.76. His calcium is 10.1. PROBLEMS: 1. Right lower quadrant pain, probably multifactorial. He had two stones on the CT scan done on June 22 and ultrasound on July 03 showed only one stone and probably he has passed one stone, which may have caused his pain and hematuria. His urine culture has been negative since he was treated for UTI. He had another culture done on July 03 which was again negative. At this point, we will continue to monitor his renal function closely. The patient will continue to receive his pain medications as needed. He also has a new right inguinal hernia, which may have caused some of the pain and hernia is easily reducible. 2. Transplant kidney status. His kidney function is stable at baseline and he will continue with his chronic immunosuppressive therapy. 3. Hypercalcemia. Calcium level has improved with Sensipar and we will continue the same as long as he is here in the hospital. Unfortunately, he could not afford Sensipar as outpatient due to very high copay. 4. Hyperparathyroidism. This is very mild and we will continue to monitor and his calcitriol has already been stopped due to hypercalcemia. 5. Inguinal hernia. The patient has a large left inguinal hernia and a small and new right inguinal hernia. He has seen Dr. Gamble in the past and will need his hernia repair done. He can follow up with Dr. Gamble as an outpatient. I do not feel that any urgent intervention is indicated at this point. 6. Anemia. His anemia has been stable and does not need any intervention.
[2019-07-04 14:00] VITALS: BP 163/91
--- NOTE | 2019-07-04 17:08 | IPNPDOC ---
PM&R Progress Note [employer] Progress Note DATE OF ADMISSION: Jun 20, 2019 at 16:30 INPATIENT REHABILITATION ADMISSION DAY: # SUBJECTIVE: Patient is a -year-old with . ALLERGIES: See Below MEDICATIONS: Reviewed, see below. OBJECTIVE: VITAL SIGNS: Please see below. PHYSICAL EXAMINATION: GENERAL: [Cachectic, well developed, sitting up in bed, no acute distress]. HEENT: [Normocephalic, atraumatic]. [No facial droop]. [Poor dentition, missing teeth. PERRL, EOMI]. CARDIOVASCULAR: [S1, S2, irregular rate]. [No lower limb edema or calf tenderness]. LUNGS: [Decreased breath sounds, coarse throughout]. ABDOMEN: [Soft, nontender, nondistended. Normoactive bowel sounds throughout]. MUSCULOSKELETAL: MMT: /5 strength proximally bilateral shoulder abduction, forward flexion and bilateral hip flexion. /5 strength bilateral elbow flexion, knee flexion, /5 bilateral elbow extension and knee extension. /5 sheet metal superintendent, dorsiflexion, plantar flexion. NEUROLOGICAL: [Alert and oriented times three]. [Answers all question appropriately]. SKIN: . LABORATORY DATA: Reviewed. Please see below. MICROBIOLOGY: Please see below. IMAGING: ASSESSMENT AND PLAN: 1. . 2. . 3. . TIME SPENT: Chart Review, examination and documentation minutes. Allergies Coded Allergies: ciprofloxacin (Verified Allergy, Unknown, 12/20/18) amoxicillin (Verified Adverse Reaction, Intermediate, can take few prior to dentist but can not take for 10 days, 12/20/18) pregabalin (Verified Adverse Reaction, Intermediate, UNKNOWN, 12/20/18) tizanidine (Verified Adverse Reaction, Intermediate, 12/20/18) Quinolones (Verified Adverse Reaction, Mild, ANXIETY, 12/20/18) cefuroxime (Verified Adverse Reaction, Mild, ANXIETY, 12/20/18) codeine (Verified Adverse Reaction, Mild, AGITATION, 12/20/18) lorazepam (Verified Adverse Reaction, Mild, AGITATION, 12/20/18) Vital Signs Vital Signs Date Time Temp Pulse Resp B/P (MAP) Pulse Ox O2 Delivery O2 Flow Rate FiO2 07/04/19 14:00 98.2 64 18 163/91 (115) 90 Laboratory Data CBC/BMP Laboratory Tests 07/04/19 06:22 Red Blood Count 3.59 L, Mean Corpuscular Volume 95.3, Mean Corpuscular H emoglobin 29.2, Mean Corpuscular Hemoglobin Concent 30.7 L, Red Cell Distribution Width 16.4 H, Neutrophils (%) (Auto) 52.0, Lymphocytes (%) (Auto) 32.9, Monocytes (%) (Auto) 12.5 H, Eosinophils (%) (Auto) 0.9, Basophils (%) (Auto) 0.3, Neutrophils # (Auto) 3.4, Lymphocytes # (Auto) 2.2, Monocytes # (Auto) 0.8, Eosinophils # (Auto) 0.1, Basophils # (Auto) 0.0 Labs 24H Laboratory Tests 2 07/04/19 06:22: Immature Granulocyte % (Auto) 1.4, White Blood Count 6.5, Red Blood Count 3.59L, Hemoglobin 10.5L, Hematocrit 34.2L, Mean Corpuscular Volume 95.3, Mean Corpuscular Hemoglobin 29.2, Mean Corpuscular Hemoglobin Concent 30.7L, Red Cell Distribution Width 16.4H, Platelet Count 325, Neutrophils (%) (Auto) 52.0, Lymphocytes (%) (Auto) 32.9, Monocytes (%) (Auto) 12.5H, Eosinophils (%) (Auto) 0.9, Basophils (%) (Auto) 0.3, Neutrophils # (Auto) 3.4, Lymphocytes # (Auto) 2.2, Monocytes # (Auto) 0.8, Eosinophils # (Auto) 0.1, Basophils # (Auto) 0.0, Nucleated Red Blood Cells % (auto) 0.0, Prothrombin Time 26.5H, Prothromb Time International Ratio 2.46 Microbiology Microbiology 07/03/19 Urine Culture - Final, Complete Current Medications Current Medications Current Medications Medications (Trade) Dose Ordered Sig/Dionte Route PRN Reason Start Time Stop Time Status Last Admin Dose Admin Acetaminophen (Tylenol Tab) 650 mg Q4HP PRN PO fever/MILD PAIN (PS 1-4) 06/20/19 17:00 06/22/19 13:54 DC Acetaminophen (Tylenol Tab) 1,000 mg TID PO 06/22/19 16:00 07/04/19 08:28 Amiloride HCl (Midamor) 5 mg DAILY PO 06/21/19 09:00 07/04/19 08:26 Amitriptyline HCl (Elavil) 25 mg QHS PO 07/03/19 21:00 Aspirin (Aspirin Chewable) 81 mg DAILY PO 06/21/19 09:00 07/04/19 08:26 Azathioprine (Imuran) 100 mg DAILY PO 06/21/19 09:00 07/04/19 08:28 Bisacodyl (Dulcolax Suppository) 10 mg DAILYPRN PRN MI CONSTIPATION 06/20/19 17:00 Calcitriol (Rocaltrol) 0.25 mcg MoTuWeThFr@0900 PO 06/21/19 09:00 06/29/19 09:04 DC 06/29/19 08:49 Cinacalcet (Sensipar) 30 mg Q48H PO 07/01/19 09:00 07/03/19 08:24 Cyclobenzaprine HCl (Flexeril) 10 mg Q8HP PRN PO SPASMS 06/20/19 17:00 06/21/19 14:04 DC Diazepam (Valium) 1 mg 0600,1600,2100 PO 06/28/19 10:32 07/04/19 05:16 Diazepam (Valium) 1 mg Q8HP PRN PO pain 07/03/19 16:00 07/04/19 12:05 Diazepam (Valium) 1 mg TID PO 06/25/19 16:00 06/28/19 10:32 DC 06/28/19 08:15 Diazepam (Valium) 2 mg Q12HP PRN PO ANXIETY 06/20/19 17:00 06/22/19 13:53 DC 06/22/19 11:20 Diazepam (Valium) 2 mg TID PO 06/22/19 16:00 06/25/19 14:54 DC 06/25/19 08:30 Digoxin (Lanoxin) 0.25 mg DAILY PO 06/21/19 09:00 07/04/19 08:29 Docusate Sodium (Colace) 100 mg BID PO 06/20/19 21:00 07/04/19 08:29 Gabapentin (Neurontin) 300 mg BID@0900,1600 PO 06/21/19 09:00 07/04/19 08:29 Gabapentin (Neurontin) 600 mg QHS PO 06/20/19 21:00 07/03/19 20:18 Home Med (Med Rec Complete!) ASDIRECTED XX 06/20/19 18:00 06/20/19 18:08 DC Hydroxyzine HCl (Atarax) 25 mg Q6HP PRN PO ANXIETY 06/20/19 17:00 07/03/19 03:22 Magnesium Gluconate (Magnesium Gluconate) 500 mg QID PO 06/21/19 13:00 07/04/19 12:05 Magnesium Hydroxide (Milk Of Magnesia) 30 ml DAILYPRN PRN PO CONSTIPATION 06/20/19 17:00 07/04/19 08:47 Menthol/Methyl Salicylate (Bengay Cream) 1 dose TID TOP 06/25/19 16:00 07/04/19 08:30 Miscellaneous (Unresolved Clarification Entry) SEE LABEL COMMENTS DAILY XX 07/02/19 09:00 07/02/19 12:40 DC Miscellaneous (Unresolved Patient Own Med Order) SEE LABEL COMMENTS DAILY XX 06/20/19 09:00 06/21/19 14:50 DC Ondansetron HCl (Zofran Odt) 4 mg Q4HP PRN SL NAUSEA OR VOMITING 06/25/19 10:00 07/01/19 18:46 Ondansetron HCl (Zofran Odt) 4 mg Q6HP PRN PO NAUSEA OR VOMITING 06/20/19 17:00 06/25/19 10:03 DC 06/25/19 09:42 Oxycodone HCl (Roxicodone, Oxyir) 5 mg 0600,1600,2100 PO 06/28/19 10:34 07/04/19 05:16 Oxycodone HCl (Roxicodone, Oxyir) 5 mg Q6HP PRN PO PAIN 06/20/19 17:00 06/25/19 14:54 DC 06/25/19 06:55 Oxycodone HCl (Roxicodone, Oxyir) 5 mg TID PO 06/25/19 16:00 06/28/19 10:34 DC 06/28/19 08:18 Pantoprazole Sodium (Protonix) 40 mg DAILY PO 06/21/19 09:00 07/04/19 08:29 Patient Own Medication (Patient'S Own Med) TAKE 3 TABLETS BY MOUTH DAILY DAILY@0900 PO 06/22/19 09:00 07/04/19 08:26 Phenazopyridine HCl (Pyridium) 100 mg Q8H PO 06/26/19 22:00 06/28/19 06:01 DC 06/28/19 06:23 Polyethylene Glycol (Miralax) 1 pkt DAILYPRN PRN PO CONSTIPATION 07/04/19 12:00 07/04/19 12:05 Potassium Chloride (Micro-K Extencaps) 10 meq DAILY PO 06/21/19 09:00 07/04/19 08:29 Prednisone (Deltasone) 5 mg DAILY PO 06/21/19 09:00 07/04/19 08:29 Senna (Senokot) 1 tab QHS PO 06/20/19 21:00 07/03/19 20:19 Torsemide (Demadex) 10 mg DAILY PO 06/21/19 09:00 06/22/19 15:42 DC 06/22/19 09:35 Torsemide (Demadex) 10 mg DAILY PO 06/23/19 09:00 07/04/19 08:29 Trazodone HCl (Desyrel) 25 mg QHS PO 06/26/19 21:00 07/03/19 20:20 Trimethoprim/ Sulfamethoxazole (Bactrim Ds, Septra Ds 160mg/ 800mg) 1 tab BID PO 06/21/19 09:00 07/02/19 12:40 DC 07/02/19 08:40 Vitamin B Complex/ Vitamin C (Therapeutic B Complex w/C) 1 cap DAILY PO 06/21/19 09:00 07/04/19 08:26 Warfarin Sodium (Coumadin) 2.5 mg DAILY@17 PO 06/29/19 17:00 07/01/19 11:56 DC 06/30/19 16:01 Warfarin Sodium (Coumadin) 4 mg DAILY@17 PO 07/04/19 17:00 Warfarin Sodium (Coumadin) 5 mg DAILY@17 PO 07/01/19 17:00 07/04/19 10:23 DC 07/03/19 17:35 FARHAN LAMAR MD Jul 04, 2019 17:08
[2019-07-04] MEDS: WARFARIN SOD 4 MG TAB PO SCH (17:44)
[2019-07-04 19:55] VITALS: BP 115/55
[2019-07-04] MEDS: PREPARATION H PR PRN (20:36)
[2019-07-04] MEDS: traZODone 25MG PER 1/2 TABLET PO SCH (21:59)
[2019-07-04] MEDS: SENNA 8.6 MG TAB (SENOKOT) PO SCH (21:59)
[2019-07-04] MEDS: AMITRIPTYLINE 25 MG TAB PO SCH (22:09)
[2019-07-05 06:00] VITALS: BP 120/68
[2019-07-05] MEDS: oxyCODONE 5MG TAB PO SCH ×3 (06:29→21:52)
[2019-07-05] MEDS: diazePAM 2 MG TAB PO SCH ×3 (06:29→21:50)
[2019-07-05 07:14] LABS: INR 2.75
[2019-07-05] MEDS: CINACALCET 30 MG TAB (SENSIPAR) PO SCH (09:00)
[2019-07-05] MEDS: TORSEMIDE 10 MG TABLET PO SCH (10:05)
[2019-07-05] MEDS: predniSONE 5 MG TAB PO SCH (10:05)
[2019-07-05] MEDS: ASPIRIN 81 MG CHEW TABLET PO SCH (10:05)
[2019-07-05] MEDS: DOCUSATE SODIUM 100 MG CAP PO SCH ×2 (10:05→21:49)
[2019-07-05] MEDS: aMILoride 5 MG TAB PO SCH (10:06)
[2019-07-05] MEDS: VITAMIN B COMPLEX/VIT C CAP PO SCH (10:06)
[2019-07-05] MEDS: DIGOXIN 0.25 MG TAB PO SCH (10:07)
[2019-07-05] MEDS: ACETAMINOPHEN 500 MG TAB PO SCH ×3 (10:08→21:51)
[2019-07-05] MEDS: POTASSIUM CHLORIDE 10 MEQ SR TABLET PO SCH (10:08)
[2019-07-05] MEDS: GABAPENTIN 300 MG CAP PO SCH ×3 (10:08→21:51)
[2019-07-05] MEDS: MAGNESIUM GLUCONATE 500 MG TAB PO SCH ×4 (10:10→21:52)
[2019-07-05] MEDS: PANTOPRAZOLE 40MG TAB (PROTONIX) PO SCH (10:10)
[2019-07-05] MEDS: SIROLIMUS PO SCH (10:11)
[2019-07-05] MEDS: ANALGESIC BALM CRM 120 GM TOP SCH ×3 (10:12→21:00)
[2019-07-05] MEDS: azaTHIOprine 50 MG TAB (J7500) PO SCH (10:13)
[2019-07-05 15:20] VITALS: BP 132/90
[2019-07-05] MEDS: WARFARIN SOD 4 MG TAB PO SCH (17:36)
[2019-07-05 20:19] VITALS: BP 139/97
[2019-07-05] MEDS: AMITRIPTYLINE 25 MG TAB PO SCH (21:00)
--- NOTE | 2019-07-05 21:33 | IPNPDOC ---
Subjective Date Seen The patient was seen on 07/05/19. Subjective Chief Complaint/HPI Back pain, shortness of breath when he went around the hospital in his wheel chair and inguinal hernia pain. Does not want to take Elavil for neuropathy pain in legs just Diazepam General: Reports: Fatigue Constitutional: Reports: Weakness Eyes: Reports: Pain ENT: Denies: Head Aches, Ear Pain, Dysphagia, Sinus Congestion, Post Nasal Drip, Sore Throat, Epistaxis, Other Symptoms Skin: Denies: Rash, Lesions, Jaundice, Bruising, Itching, Dry, Breakdown, Nail Changes, Other Pulmonary: Denies: Dyspnea, Cough, Pleuritic Chest Pain, Other Symptoms Cardiovascular: Denies: Chest Pain, Palpitations, Orthopnea, Paroxysmal Noc. Dyspnea, Edema, Lt Headedness, Other Symptoms Gastrointestinal: Denies: Nausea, Vomiting, Abdominal Pain, Diarrhea, Constipation, Melena, Hematochezia, Other Symptoms Hematologic: Reports: Bruising, Bleeding Excessively Endocrine: Denies: Polydipsia, Polyphagia, Polyuria, Heat Intolerance, Cold Intolerance, Other Endocrine Sx Musculoskeletal: Reports: Back Pain, Leg Pain, Joint Pain Neurological: Denies: Weakness, Numbness, Incoordination, Change in speech, Confusion, Seizures, Other Symptoms Psych: Denies: Mood Normal, Anxiety, Depression, Memory Issues, Thoughts of Self Harm, Anger, Thoughts of Harming Other, Other Psych Objective Physical Examination General Exam: Positive: Alert, Cooperative, Mild Distress Eye Exam: Positive: PERRLA, Conjunctiva & lids normal ENT Exam: Positive: Atraumatic, Mucous membr. moist/pink, Pharynx Normal Neck Exam: Positive: Supple, +2 carotid pulse wo bruit Chest Exam: Positive: Clear to auscultation, Normal air movement Heart Exam: Positive: Rate Normal, Normal S1, Normal S2 Abdomen Exam: Positive: Normal bowel sounds, Soft Extremity Exam: Positive: Edema (right hand and upper arm due to DVT), Tenderness (right upper extremity), Swelling Skin Exam: Positive: Other skin issue (bruising, bilateral upper extremities) Neuro Exam: Positive: Cranial Nerves 3-12 NL Psych Exam: Positive: Mental status NL, Anxiety (on diazepam and approved for extra half a tablet as needed), Oriented x 3 Assessment /Plan Problems (1) S/P laminectomy Status: Acute Response to Treatment: Improving Discussed With: Patient Problem Specific Plan: Monitor Clinically Problem Text: 74-year-old elderly male on contact precaution had no overnight events been seen today follow-up visit by hospitalist services for medical assessment. He is currently receiving inpatient acute rehabilitation for spinal fractures. -No acute events overnight. -ROS negative for chest pain, nausea, vomiting, abdominal pain, diarrhea, or dysuria. Objective: Vitals (See below) General: Lying in bed, no acute distress, comfortable, AAOx3 HEENT: NC, AT CVS: +S1S2 Lungs: CTAB, no crackles or wheezing Abdomen: Soft without distention or tenderness Extremities: 1+ pitting edema bilaterally. Compression stockings on with no calf tenderness Assessment and plan: RUE DVT - Patient was found to have a DVT of his right upper extremity on 06/17/2019 at [facility], as a result of the midline -Continue taking Coumadin 4 mg by mouth , frequent PT/INR Multiple vertebral fractures - 2/2 mechanical fall - L4-6 and T11-T12 compression fractures, s/p laminectomy 06/11/2019 - Transferred from [facility] neurosurgical team for continued physical therapy and rehabilitation - Seen by neurosurgery 06/28/2019, pending anticoagulation recs given ongoing upper extremity DVT during a period which he is supposed off anticoagulation for 2 weeks - Pain control and bowel regimen oxycodone 5 mg every 4 hours along with diazepam - Patient will continue with physical therapy and occupation therapy at the direction of [facility] Atrial fibrillation - Currently rate and rhythm controlled - metoprolol held due to hypotension - c/w with Digoxin, w/ levels check Insomnia -Continue taking Trazodone at bedtime IgA Nephropathy - s/p Renal transplant 2006 - s/p ESRD on HD - c/w Prednisone, Sirolimus and Azathioprine - Patient follows with Dr. Alcantar Aortic stenosis - Clinically patient appears to have signs of fluid overload - Lower extremities do reveal 1+ pitting edema - ECHO 06/21: Preserved EF, unable to evaluate diastolic function, dilated right atrium, normal IVC size and collapsed against an elevated CVP, moderately severe ASA, mildmoderate AR, - c/w Torsemide 10 and Amiloride 5 HTN -Continue taking Amloride 5mg po daily CAD - c/w ASA 81 DLP - Currently not on medications Neuropathy -Continue taking Gabapentin 300 mg 9:00 AM, 4:00 PM and 600 mg at bedtime Iron deficiency anemia - Monitor CBC and ferrous sulfate 325 mg by mouth daily Anxiety - c/w Hydroxyzine and Diazepam GERD - c/w Protonix DR 40 mg daily DVT prophylaxis - c/w TEDs/Sequentials Disposition: - To resume anticoagulation when cleared by Neurosurgery - Otherwise continue w/ PT Plan/VTE VTE Prophylaxis Ordered?: Yes VTE Exclusion Pharmacological: N/A:VTE Prophy Ordered Plan Diet: Continue Current Therapy: PT (continue therapy), OT (continue therapy) Medications: Bowel Regimen, Other Med: (continue current pain management plan) Diagnostics: Check Labs Anticipated Discharge: Sub Acute Rehab (per acute rehabilitation unit) VS, I&O, 24H, Fishbone Vital Signs/I&O Vital Signs Date Time Temp Pulse Resp B/P (MAP) Pulse Ox O2 Delivery O2 Flow Rate FiO2 07/05/19 20:19 99.0 95 18 139/97 (111) 95 I&O- Last 24 Hours up to 6 AM 07/05/19 06:00 Intake Total 840 ml Output Total 2125 ml Balance -1285 ml Laboratory Data 24H LABS Laboratory Tests 2 07/05/19 06:45: Prothrombin Time 29.0H, Prothromb Time International Ratio 2.75 Microbiology Microbiology 07/03/19 Urine Culture - Final, Complete DOLORES HARDY Jul 05, 2019 21:33
[2019-07-05] MEDS: traZODone 25MG PER 1/2 TABLET PO SCH (21:51)
[2019-07-05] MEDS: SENNA 8.6 MG TAB (SENOKOT) PO SCH (21:51)
[2019-07-05] MEDS: PREPARATION H PR PRN (21:53)
[2019-07-06] MEDS: diazePAM 2 MG TAB PO PRN (01:43)
[2019-07-06] MEDS: oxyCODONE 5MG TAB PO SCH (05:56)
[2019-07-06 05:57] VITALS: BP 129/79
[2019-07-06] MEDS: diazePAM 2 MG TAB PO SCH (06:04)
[2019-07-06 08:13] LABS: INR 2.63
[2019-07-06] MEDS ORDERED: FERROUS SULFATE 325MG TAB PO SCH (09:00)
[2019-07-06] MEDS: SIROLIMUS PO SCH (09:08)
[2019-07-06] MEDS: GABAPENTIN 300 MG CAP PO SCH (09:09)
[2019-07-06] MEDS: TORSEMIDE 10 MG TABLET PO SCH (09:09)
[2019-07-06] MEDS: predniSONE 5 MG TAB PO SCH (09:09)
[2019-07-06] MEDS: DIGOXIN 0.25 MG TAB PO SCH (09:09)
[2019-07-06] MEDS: PANTOPRAZOLE 40MG TAB (PROTONIX) PO SCH (09:09)
[2019-07-06] MEDS: ASPIRIN 81 MG CHEW TABLET PO SCH (09:09)
[2019-07-06] MEDS: aMILoride 5 MG TAB PO SCH (09:09)
[2019-07-06] MEDS: MAGNESIUM GLUCONATE 500 MG TAB PO SCH (09:10)
[2019-07-06] MEDS: ACETAMINOPHEN 500 MG TAB PO SCH (09:10)
[2019-07-06] MEDS: azaTHIOprine 50 MG TAB (J7500) PO SCH (09:11)
[2019-07-06] MEDS: POTASSIUM CHLORIDE 10 MEQ SR TABLET PO SCH (09:11)
[2019-07-06] MEDS: ANALGESIC BALM CRM 120 GM TOP SCH (09:11)
[2019-07-06] MEDS: DOCUSATE SODIUM 100 MG CAP PO SCH (09:11)
[2019-07-06] MEDS: VITAMIN B COMPLEX/VIT C CAP PO SCH (09:11)
[2019-07-06] MEDS ORDERED: AMIL5TAB4 PO (10:30)
[2019-07-06] MEDS ORDERED: DIGO0.25 PO (10:30)
[2019-07-06] MEDS ORDERED: CINA30TA5 PO (10:30)
[2019-07-06] MEDS ORDERED: KLOR10TA76 PO (10:30)
[2019-07-06] MEDS ORDERED: GABA-843 PO ×2 (10:30)
[2019-07-06] MEDS ORDERED: PRED5TA PO (10:30)
[2019-07-06] MEDS ORDERED: COUM1TAB14 PO (10:30)
[2019-07-06] MEDS ORDERED: DIAZ2TAB PO (10:30)
[2019-07-06] MEDS ORDERED: ASPI81CH8 PO (10:30)
[2019-07-06] MEDS ORDERED: TORS10TA3 PO (10:30)
[2019-07-06] MEDS ORDERED: AZAT50TA2 PO (10:30)
[2019-07-06] MEDS ORDERED: OXYCO5TA PO (10:30)
== END 2019-07-06 12:20 | disposition home or self-care (01) | DRG 551 ==
LOC: M PM&R 16:30
PROVIDERS: ADMIT Physical Medicine & Rehabilitation; ATTEND Physical Medicine & Rehabilitation
DX: M48.062 Spinal stenosis, lumbar region with neurogenic claudication (principal); N18.6 End stage renal disease; Z94.0 Kidney transplant status; N39.0 Urinary tract infection, site not specified; N25.81 Secondary hyperparathyroidism of renal origin; I35.0 Nonrheumatic aortic (valve) stenosis; G25.81 Restless legs syndrome; I25.10 Atherosclerotic heart disease of native coronary artery without angina pectoris; Z79.899 Other long term (current) drug therapy; Z79.82 Long term (current) use of aspirin; Z88.0 Allergy status to penicillin; Z88.8 Allergy status to other drugs, medicaments and biological substances; I48.0 Paroxysmal atrial fibrillation; D50.9 Iron deficiency anemia, unspecified; M81.0 Age-related osteoporosis without current pathological fracture; K21.9 Gastro-esophageal reflux disease without esophagitis; B96.29 Other Escherichia coli [E. coli] as the cause of diseases classified elsewhere; G62.9 Polyneuropathy, unspecified; F41.9 Anxiety disorder, unspecified; Z79.52 Long term (current) use of systemic steroids; E83.42 Hypomagnesemia; R29.6 Repeated falls; R26.89 Other abnormalities of gait and mobility; E83.52 Hypercalcemia; K40.90 Unilateral inguinal hernia, without obstruction or gangrene, not specified as recurrent; Z86.718 Personal history of other venous thrombosis and embolism

== ENCOUNTER → 2019-07-09 | Outpatient (REF) | payer MEDICARE ==
[~2019-07-09] MED LIST changes: +ACET1TAB55 PO; +AMIL5TAB4 PO; +ASPI81CH8 PO; +BISA10SU27 PR; +CINA30TA5 PO; +COUM1TAB14 PO; +DIGO0.25 PO; +DOCU100C17 PO; +ICY2.5GE TOP; +KLOR10TA76 PO; +LIDO1PAD TOP; +OXYCO5TA PO; +RA S8.6T3 PO; +TORS10TA3 PO
[2019-07-09 18:19] LABS: INR 2.74; PROTHROMBIN TIME 28.9 SECONDS (11.8-14.0)
== END ==
LOC: M LAB REF 17:02
PROVIDERS: ATTEND Internal Medicine Nephrology
DX: Z79.01 Long term (current) use of anticoagulants (principal); Z94.0 Kidney transplant status

== ENCOUNTER → 2019-07-11 | Outpatient (REF) | payer MEDICARE ==
[2019-07-11 17:23] LABS: INR 3.37; PROTHROMBIN TIME 34.1 SECONDS (11.8-14.0)
== END ==
LOC: M LAB REF 16:38
PROVIDERS: ATTEND Internal Medicine Nephrology
DX: Z94.0 Kidney transplant status (principal); Z79.01 Long term (current) use of anticoagulants

== ENCOUNTER → 2019-07-11 | Outpatient (REF) | payer MEDICARE | LOC: M LAB REF 13:12 | PROVIDERS: ATTEND Nurse Practitioner Family | DX: N39.0 Urinary tract infection, site not specified (principal) ==

== ENCOUNTER → 2019-07-16 | Outpatient (REF) | payer MEDICARE ==
[2019-07-16 13:53] LABS: INR 3.35; PROTHROMBIN TIME 33.9 SECONDS (11.8-14.0)
== END ==
LOC: M LAB REF 13:13
PROVIDERS: ATTEND Nurse Practitioner Family
DX: Z79.01 Long term (current) use of anticoagulants (principal)
CPT/HCPCS: 85610; G0463

== ENCOUNTER → 2019-07-16 | Outpatient (REF) | payer MEDICARE ==
[2019-07-16 19:53] LABS: APPEARANCE, URINE CLOUDY (CLEAR); BACTERIA, URINE AUTO NEGATIVE (NEGATIVE); BILIRUBIN, URINE AUTO NEGATIVE (NEGATIVE); BLOOD, URINE BLOOD 3+ (NEGATIVE); CALCIUM OXALATE CRYSTALS MODERATE; COLOR, URINE AMBER (YELLOW); GLUCOSE, URINE (UA) AUTO NEGATIVE (NEGATIVE); KETONE, URINE AUTO NEGATIVE (NEGATIVE); LEUKOCYTE ESTERASE, URINE AUTO NEGATIVE (NEGATIVE); NITRITE, URINE AUTO NEGATIVE (NEGATIVE); PROTEIN, URINE AUTO 2+ mg/dL (NEGATIVE); RBC, URINE AUTO TNTC /HPF (0-3); SPECIFIC GRAVITY URINE AUTO 1.019 (1.002-1.035); SQUAMOUS EPITHELIAL CELL UR AU 2 /HPF (0-6); WBC, URINE AUTO 0 /HPF (0-3)
== END ==
LOC: M SMT 18:09
PROVIDERS: ATTEND Nurse Practitioner Family
DX: R31.0 Gross hematuria (principal)

== ENCOUNTER → 2019-07-26 | Outpatient (RCR) | payer MEDICARE | LOC: M OT 07-09 08:11 → M PT 07-09 09:15 → M OT 07-12 08:15 → M PT 07-12 08:48 → M OT 07-12 08:48 → M PT 07-17 09:05 → M OT 07-19 08:20 | PROVIDERS: ATTEND Internal Medicine Nephrology | DX: M96.1 Postlaminectomy syndrome, not elsewhere classified (principal) ==

== ENCOUNTER → 2019-08-07 | Outpatient (REF) | payer MEDICARE ==
[2019-08-07 18:18] LABS: INR 1.57; PROTHROMBIN TIME 18.5 SECONDS (11.8-14.0)
== END ==
LOC: M LAB REF 17:17
PROVIDERS: ATTEND Nurse Practitioner Family
DX: Z79.01 Long term (current) use of anticoagulants (principal)

== ENCOUNTER → 2019-08-22 | Outpatient (REF) | payer MEDICARE ==
[2019-08-22 17:56] LABS: APPEARANCE, URINE CLOUDY (CLEAR); BACTERIA, URINE AUTO NEGATIVE (NEGATIVE); BILIRUBIN, URINE AUTO NEGATIVE (NEGATIVE); BLOOD, URINE BLOOD 3+ (NEGATIVE); COLOR, URINE AMBER (YELLOW); GLUCOSE, URINE (UA) AUTO NEGATIVE (NEGATIVE); KETONE, URINE AUTO NEGATIVE (NEGATIVE); LEUKOCYTE ESTERASE, URINE AUTO NEGATIVE (NEGATIVE); NITRITE, URINE AUTO NEGATIVE (NEGATIVE); PROTEIN, URINE AUTO 2+ mg/dL (NEGATIVE); RBC, URINE AUTO TNTC /HPF (0-3); SPECIFIC GRAVITY URINE AUTO 1.008 (1.002-1.035); SQUAMOUS EPITHELIAL CELL UR AU 0 /HPF (0-6); UROBILINOGEN, URINE AUTO 0.2 mg/dL (0.0-2.0); WBC, URINE AUTO 9 /HPF (0-3)
== END ==
LOC: M SMT 17:02
PROVIDERS: ATTEND Nurse Practitioner Family
DX: N39.0 Urinary tract infection, site not specified (principal)

== ENCOUNTER → 2019-09-10 | Outpatient (REF) | payer MEDICARE ==
[~2019-09-10] MED LIST changes: -DIGO0.25 PO; +DIGO0.253 PO
[2019-09-10 13:34] LABS: INR 2.07; PROTHROMBIN TIME 23.1 SECONDS (11.8-14.0)
== END ==
LOC: M LAB REF 12:46
PROVIDERS: ATTEND Nurse Practitioner Family
DX: Z79.01 Long term (current) use of anticoagulants (principal)

== ENCOUNTER 2019-09-12 19:11 | Emergency (ER) | payer MEDICARE ==
[~2019-09-12] VITALS: Ht 175.3 cm; Wt 67.3 kg
[~2019-09-12 19:11] MED LIST changes: -GASTROGRAFIN SOLUTION 30ML (Q9963) As Ordered ONE
[2019-09-12] MEDS ORDERED: MORPHINE 2 MG/ML 1ML VIAL (J2270) IV ONE (19:45)
[2019-09-12] MEDS ORDERED: ONDANSETRON 4MG/2ML VIAL (J2405) IV ONE (19:45)
[2019-09-12] MEDS ORDERED: KETOROLAC 30 MG/ML VIAL (J1885) IV ONE (19:45)
[2019-09-12 20:05] LABS: BASO % 0.1 % (0.0-1.0); HEMATOCRIT 43.3 % (42.0-52.0); HEMOGLOBIN 13.4 g/dl (13.5-17.5); LYMPH # 2.1 10^3/uL (1.5-5.0); LYMPH % 29.1 % (24.0-44.0); MEAN CORPUSCULAR HEMOGLOBIN 29.5 pg (27.0-33.0); MEAN CORPUSCULAR HGB CONC 30.9 g/dl (32.0-36.5); MEAN CORPUSCULAR VOLUME 95.4 fl (80.0-96.0); MONO # 0.8 10^3/uL (0.0-0.8); MONO % 10.5 % (0.0-5.0); NEUTROPHILS # 4.4 10^3/uL (1.5-8.5); PLATELET COUNT, AUTOMATED 177 10^3/uL (150-450); RED BLOOD COUNT 4.54 10^6/uL (4.30-6.10); WHITE BLOOD COUNT 7.3 10^3/uL (4.0-10.0)
[2019-09-12 20:16] LABS: INR 1.82; PROTHROMBIN TIME 20.8 SECONDS (11.8-14.0)
[2019-09-12 20:45] LABS: ALBUMIN 3.8 GM/DL (3.2-5.2); ALT/SGPT 17 U/L (12-78); BILIRUBIN,DIRECT 0.1 MG/DL (0.0-0.2); BILIRUBIN,TOTAL 0.5 MG/DL (0.2-1.0); DIGOXIN LEVEL 0.8 NG/ML (0.5-2.0)
[2019-09-12 21:06] LABS: BLOOD UREA NITROGEN 10 MG/DL (7-18); CALCIUM LEVEL 10.1 MG/DL (8.8-10.2); CARBON DIOXIDE LEVEL 32 MEQ/L (21-32); CHLORIDE LEVEL 100 MEQ/L (98-107); GLOMERULAR FILTRATION RATE > 60.0 (>42); GLUCOSE, FASTING 114 MG/DL (70-100); SODIUM LEVEL 139 MEQ/L (136-145)
[2019-09-12] MEDS ORDERED: TAMSULOSIN 0.4 MG CAP PO ONE (22:15)
[2019-09-12 22:29] VITALS: BP 135/63
== END 2019-09-12 22:34 | disposition home or self-care (01) ==
LOC: M ED 19:11
DX: N13.30 Unspecified hydronephrosis (principal); N23 Unspecified renal colic; N20.1 Calculus of ureter; I10 Essential (primary) hypertension; Z79.899 Other long term (current) drug therapy; Z79.82 Long term (current) use of aspirin; Z79.01 Long term (current) use of anticoagulants; Z88.0 Allergy status to penicillin; Z88.1 Allergy status to other antibiotic agents; Z88.5 Allergy status to narcotic agent; Z88.8 Allergy status to other drugs, medicaments and biological substances
CPT/HCPCS: 80048; 80076; 80162; 81001; 85025; 85610; 96374; 96375; 99284; J1885; J2270; J2405

== ENCOUNTER → 2019-09-12 | Outpatient (CLI) | payer MEDICARE ==
[~2019-09-12] MED LIST changes: +GASTROGRAFIN SOLUTION 30ML (Q9963) As Ordered ONE
--- NOTE | 2019-09-12 18:50 | REPVR ---
PROCEDURE INFORMATION: Exam: CT Abdomen And Pelvis Without Contrast Exam date and time: 09/12/2019 6:03 PM Age: 74 years old Clinical indication: Abdominal pain; Generalized; Prior surgery; Surgery date: 6+ months; Surgery type: Kidney transplant; Additional info: Generalized abd pain ? bilateral inguinal hernia TECHNIQUE: Imaging protocol: Computed tomography of the abdomen and pelvis without contrast. Oral contrast was administered. Radiation optimization: All CT scans at this facility use at least one of these dose optimization techniques: automated exposure control; mA and/or kV adjustment per patient size (includes targeted exams where dose is matched to clinical indication); or iterative reconstruction. Other contrast: Route: Oral, Material: GASTROGRAPHIN DILUTED IN WATER, Volume: 600CC; COMPARISON: CT ABD PELVIS W/O CONTRAST 06/22/2019 8:39 AM FINDINGS: Limitations: Lack of intravenous contrast material limits evaluation of the vascular and visceral structures. Liver: Normal. No mass. Gallbladder and bile ducts: Normal. No calcified stones. No ductal dilation. Pancreas: Hypoplastic or atrophic pancreatic tail. Spleen: Normal. No splenomegaly. Adrenals: Normal. No mass. Kidneys and ureters: Severely atrophic and calcified [place] kidneys. Right lower quadrant renal transplant. Mild hydronephrosis of the transplant kidney secondary to an obstructing 5 mm x 5 mm calculus in the proximal transplant ureter. 2.7 cm cyst within the right lower quadrant transplant kidney. Nonobstructing 3 mm calyceal calculus of the transplant kidney. Stomach and bowel: See Soft Tissues Finding. Appendix: No evidence of appendicitis. Intraperitoneal space: Unremarkable. No free air. No significant fluid collection. Vasculature: Mitral annulus and coronary artery calcifications. Moderate atherosclerotic vascular calcifications. Lymph nodes: Unremarkable. No enlarged lymph nodes. Bladder: Mild wall thickening of the bladder dome. Reproductive: Unremarkable as visualized. Bones/joints: Postsurgical change of the lumbar spine. Chronic T12, L1, L4, and L5 vertebral body compression fractures. New L3 vertebral body moderate compression fracture with mild retropulsion. Posterior spinal fixation hardware. Imaged portion of the hardware appears intact. Bilateral hip and sacroiliac joint DJD. Chondrocalcinosis. Mild degenerative change of the pubic symphysis. Soft tissues: Moderate sized indirect left inguinal hernia, containing the proximal sigmoid colon. No evidence of bowel obstruction or strangulation. Surgical mesh associated with the ventral abdominal wall. Low density fluid collection within the subcutaneous tissues along the cephalad ventral aspect of this mesh. This measures 5.1 cm x 1.5 cm, slightly decreased in size. This is favored to represent a seroma. Fluid collection within the posterior paraspinal muscles and overlying dorsal subcutaneous tissues at the L2-L5 levels. This appears increased in size since the prior CT. IMPRESSION: 1. Mild hydronephrosis of the right lower quadrant transplant kidney secondary to an obstructing 5 mm x 5 mm calculus in the proximal right ureter. 2. New L3 vertebral body compression fracture, with mild retropulsion. 3. Fluid collection within the posterior paraspinal musculature and overlying subcutaneous tissues at the L2-L5 levels. This appears increased in size since the prior CT. Sterility is indeterminant. Correlate clinically. 4. Mild bladder wall thickening. Correlate with urinalysis. 5. Several additional non-acute findings, as above. Electronically signed by: Donna Singer On 09/12/2019 18:50:13 PM
== END ==
LOC: M RAD 16:19
PROVIDERS: ATTEND Nurse Practitioner Family
DX: R10.84 Generalized abdominal pain (principal); Z94.0 Kidney transplant status; K40.01 Bilateral inguinal hernia, with obstruction, without gangrene, recurrent
CPT/HCPCS: 74176; Q9963

== ENCOUNTER 2019-09-17 17:07 | Emergency (ER) | payer MEDICARE ==
[~2019-09-17] VITALS: Ht 175.3 cm; Wt 65.4 kg
[2019-09-17] MEDS ORDERED: LIDO5DIS41 TOP (19:25)
[2019-09-17] MEDS ORDERED: ZOFR4TAB16 PO (19:25)
[2019-09-17] MEDS ORDERED: CYMB1CAP5 PO (19:25)
[2019-09-17] MEDS ORDERED: CYCL10TA PO (19:25)
[2019-09-17] MEDS ORDERED: MELA10CA2 PO (19:25)
[2019-09-17 21:08] LABS: BASO % 0.2 % (0.0-1.0); EOS % 0.5 % (0.0-3.0); HEMATOCRIT 38.2 % (42.0-52.0); LYMPH # 2.2 10^3/uL (1.5-5.0); LYMPH % 37.5 % (24.0-44.0); MEAN CORPUSCULAR HEMOGLOBIN 29.6 pg (27.0-33.0); MEAN CORPUSCULAR HGB CONC 31.4 g/dl (32.0-36.5); MEAN CORPUSCULAR VOLUME 94.1 fl (80.0-96.0); MONO # 0.6 10^3/uL (0.0-0.8); MONO % 10.3 % (0.0-5.0); NEUTROPHILS % 51.3 % (36.0-66.0); PLATELET COUNT, AUTOMATED 168 10^3/uL (150-450); RED BLOOD COUNT 4.06 10^6/uL (4.30-6.10); WHITE BLOOD COUNT 5.8 10^3/uL (4.0-10.0)
[2019-09-17 21:19] LABS: INR 1.16; PROTHROMBIN TIME 14.5 SECONDS (11.8-14.0)
[2019-09-17 21:20] LABS: PARTIAL THROMBOPLASTIN TIME 31.3 SECONDS (25.0-38.4)
[2019-09-17 22:14] LABS: ALBUMIN 3.3 GM/DL (3.2-5.2); ALT/SGPT 29 U/L (12-78); BILIRUBIN,DIRECT 0.2 MG/DL (0.0-0.2); BILIRUBIN,TOTAL 0.5 MG/DL (0.2-1.0); BLOOD UREA NITROGEN 12 MG/DL (7-18); CALCIUM LEVEL 9.9 MG/DL (8.8-10.2); CARBON DIOXIDE LEVEL 29 MEQ/L (21-32); CHLORIDE LEVEL 105 MEQ/L (98-107); CK-MB VALUE MASS < 1.0 NG/ML (<3.6); CPK CREATINE PHOSPHOKINASE 32 U/L (39-308); GLOMERULAR FILTRATION RATE > 60.0 (>42); GLUCOSE, FASTING 91 MG/DL (70-100); LIPASE 38 U/L (73-393); MB/CK RELATIVE INDEX 3.12 (< OR =4); POTASSIUM SERUM 4.2 MEQ/L (3.5-5.1); SODIUM LEVEL 143 MEQ/L (136-145); TOTAL PROTEIN 6.5 GM/DL (6.4-8.2); TROPONIN I < 0.02 NG/ML (< 0.10)
[2019-09-17] MEDS ORDERED: MORPHINE 4 MG/ML 1ML VIAL/SYRINGE (J2270) IV ONE (22:30)
[2019-09-17] MEDS ORDERED: ONDANSETRON 4MG/2ML VIAL (J2405) IV ONE (22:30)
[2019-09-17] MEDS ORDERED: ISOVUE-370 76% 100ML VIAL (Q9967) As Ordered ONE (22:41)
--- NOTE | 2019-09-17 23:35 | REPVR ---
PROCEDURE INFORMATION: Exam: XR Chest, 2 Views Exam date and time: 09/17/2019 9:45 PM Age: 74 years old Clinical indication: Pain; Other: Abdomen; Additional info: Abdominal pain TECHNIQUE: Imaging protocol: XR of the chest Views: 2 views. COMPARISON: CR Chest, 2 view PA, Lat 2019-05-14 16:06 FINDINGS: Lungs: No focal airspace consolidation. Pleural space: Unremarkable. No pleural effusion. No pneumothorax. Heart/Mediastinum: Small hiatal hernia. Upper abdomen: No free air under the diaphragm. Bones/joints: Unremarkable. Other findings: Spinal hardware. IMPRESSION: 1. No focal airspace consolidation. 2. Small hiatal hernia. Electronically signed by: Yassine Kunz On 09/17/2019 23:35:19 PM
--- NOTE | 2019-09-17 23:40 | REPVR ---
PROCEDURE INFORMATION: Exam: CT Abdomen And Pelvis With Contrast Exam date and time: 09/17/2019 10:57 PM Age: 74 years old Clinical indication: Abdominal pain; Generalized; Prior surgery; Surgery date: 3-7 days post-operative; Additional info: Diffuse abd pain sp nephrostomy placement TECHNIQUE: Imaging protocol: Computed tomography of the abdomen and pelvis with intravenous contrast. Radiation optimization: All CT scans at this facility use at least one of these dose optimization techniques: automated exposure control; mA and/or kV adjustment per patient size (includes targeted exams where dose is matched to clinical indication); or iterative reconstruction. Contrast material: ISOVUE 370; Contrast volume: 100 ml; Contrast route: IV; COMPARISON: CT ABD/PEL W/PO CONTRAST ONLY 2019-09-12 18:10 FINDINGS: Tubes, catheters and devices: Right lower quadrant percutaneous nephrostomy tube extending into the bladder. Mediastinum: Small gastroesophageal sliding type hiatal hernia. Liver: Normal. No mass. Gallbladder and bile ducts: Gallbladder distention with calcification at the gallbladder neck. No pericholecystic inflammation. Pancreas: Normal. No ductal dilation. Spleen: Normal. No splenomegaly. Adrenals: Normal. No mass. Kidneys and ureters: Dilated calyx or cyst measuring 2.2 cm in the right lower quadrant kidney is unchanged. Small region of renal scarring. Absent koi kidneys. Stomach and bowel: Left inguinal hernia containing nondilated bowel loop, sigmoid colon. Appendix: No evidence of appendicitis. Intraperitoneal space: Unremarkable. No free air. No significant fluid collection. Retroperitoneal space: Left retroperitoneal calcifications. Vasculature: Unremarkable. No abdominal aortic aneurysm. Lymph nodes: Unremarkable. No enlarged lymph nodes. Bladder: Unremarkable as visualized. Reproductive: Unremarkable as visualized. Bones/joints: Thoracic lumbar junction spinal hardware. Relatively hypodense bones indicating osteopenia. Multiple insufficiency fractures of the spine. L3 moderate compression fracture is unchanged but appears recent, presumably occurred within the last couple months. Soft tissues: Ventral abdominal wall hernia. Small amount of fluid within the anterior abdominal wall, unchanged from the comparison. Ventral abdominal wall hernia repair. Lower lumbar laminectomies with fluid in the laminectomy bed and posterior spinal soft tissues. IMPRESSION: 1. Interval percutaneous right iliac fossa transplant kidney nephrostomy tube in appropriate position. Otherwise no substantial change. 2. Left inguinal hernia containing nondilated bowel loop, sigmoid colon. 3. Lower lumbar laminectomies with fluid in the laminectomy bed and posterior spinal soft tissues. 4. L3 moderate compression fracture is unchanged but appears recent, presumably occurred within the last couple months. Electronically signed by: Yassine Kunz On 09/17/2019 23:40:20 PM
[2019-09-18] MEDS ORDERED: MORPHINE 4 MG/ML 1ML VIAL/SYRINGE (J2270) IV ONE ×2 (00:30→03:45)
[2019-09-18] MEDS ORDERED: cefTRIAXone SOD 1 GM in D5W MINI-BAG PLUS 50 ML IV ONE (01:00)
[2019-09-18 03:52] VITALS: BP 174/79
--- NOTE | 2019-09-18 05:42 | ECGEPIP ---
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
== END 2019-09-18 03:55 | disposition short-term general hospital (02) ==
LOC: M ED 17:07
DX: K40.90 Unilateral inguinal hernia, without obstruction or gangrene, not specified as recurrent (principal); K44.9 Diaphragmatic hernia without obstruction or gangrene; T86.13 Kidney transplant infection; N10 Acute pyelonephritis; N39.0 Urinary tract infection, site not specified; R31.9 Hematuria, unspecified; I44.4 Left anterior fascicular block; I48.91 Unspecified atrial fibrillation; I77.0 Arteriovenous fistula, acquired; I10 Essential (primary) hypertension; M48.00 Spinal stenosis, site unspecified; N18.6 End stage renal disease; Z79.52 Long term (current) use of systemic steroids; Z79.82 Long term (current) use of aspirin; Z79.899 Other long term (current) drug therapy; Z88.1 Allergy status to other antibiotic agents; Z88.5 Allergy status to narcotic agent; Z88.8 Allergy status to other drugs, medicaments and biological substances; Z96.0 Presence of urogenital implants
CPT/HCPCS: 71046; 74177; 80047; 80048; 80076; 81001; 82550; 82553; 83605; 83690; 84484; 85025; 85610; 85730; 87086; 93005; 96365; 96374; 96375; 96376; 99284; J0696; J2270; J2405; Q9967

== ENCOUNTER → 2019-09-24 | Outpatient (REF) | payer MEDICARE ==
[~2019-09-24] MED LIST changes: +CYMB1CAP5 PO; +LIDO5DIS41 TOP; +MELA10CA2 PO; +ZOFR4TAB16 PO
[2019-09-24 13:53] LABS: INR 1.63; PROTHROMBIN TIME 19.1 SECONDS (11.8-14.0)
[2019-09-24 13:54] LABS: TOTAL PROTEIN 6.5 GM/DL (6.4-8.2)
[2019-09-24 14:28] LABS: URINE TOTAL PROTEIN 138.9 MG/DL (0-12)
[2019-09-28 08:30] LABS: ALBUMIN 3.84 GM/DL (3.29-5.55); ALBUMIN % 59.1 % (55.8-66.1); ALPHA-1-GLOBULIN % 5.7 % (2.9-4.9); ALPHA-1-GLOBULINS 0.37 GM/DL (0.17-0.41); ALPHA-2-GLOBULINS 0.84 GM/DL (0.42-0.99); ALPHA-2-GLOBULINS % 12.9 % (7.1-11.8); BETA-1-GLOBULINS 0.38 GM/DL (0.28-0.60); BETA-1-GLOBULINS % 5.8 % (4.7-7.2); BETA-2-GLOBULINS 0.33 GM/DL (0.19-0.55); BETA-2-GLOBULINS % 5.1 % (3.2-6.5); GAMMA GLOBULIN % 11.4 % (11.1-18.8); GAMMA GLOBULINS 0.74 GM/DL (0.65-1.58)
[2019-09-28 08:39] LABS: UPEP INTERPRETATION NO M-SPIKE NOTED; URINE VOLUME RANDOM ML
== END ==
LOC: M LAB REF 13:00
PROVIDERS: ATTEND Nurse Practitioner Family
DX: Z79.01 Long term (current) use of anticoagulants (principal); E83.52 Hypercalcemia; Z94.0 Kidney transplant status

== ENCOUNTER → 2019-10-05 | Outpatient (REF) | payer MEDICARE ==
[~2019-10-05] MED LIST changes: +ONDA-83 PO; -ONDA4TAB5 PO
[2019-10-05 14:06] LABS: ALBUMIN 3.5 GM/DL (3.2-5.2); BLOOD UREA NITROGEN 11 MG/DL (7-18); CALCIUM LEVEL 10.3 MG/DL (8.8-10.2); CARBON DIOXIDE LEVEL 29 MEQ/L (21-32); CHLORIDE LEVEL 104 MEQ/L (98-107); CREATININE FOR GFR 0.76 MG/DL (0.70-1.30); GLOMERULAR FILTRATION RATE > 60.0 (>42); GLUCOSE, FASTING 144 MG/DL (70-100); MAGNESIUM LEVEL 1.4 MG/DL (1.8-2.4); PHOSPHORUS LEVEL 2.6 MG/DL (2.5-4.9); SODIUM LEVEL 141 MEQ/L (136-145)
[2019-10-05 14:20] LABS: INR 1.02; PROTHROMBIN TIME 13.1 SECONDS (11.8-14.0)
== END ==
LOC: M LAB REF 13:14
PROVIDERS: ATTEND Internal Medicine Nephrology
DX: Z94.0 Kidney transplant status (principal); E83.42 Hypomagnesemia; N39.0 Urinary tract infection, site not specified; Z79.01 Long term (current) use of anticoagulants

== ENCOUNTER 2019-10-11 12:52 | Outpatient (CLI) | payer MEDICARE ==
[~2019-10-11] VITALS: Ht 175.3 cm; Wt 65.4 kg
[2019-10-11 12:55] VITALS: BP 128/89
[2019-10-11] MEDS: MAG SULF 1GM/100ML (MAG RUN) X 2 DOSES (2GM TOTAL) IV SCH ×4 (13:31→14:30)
[2019-10-11] MEDS ORDERED: NEUR600T PO (13:45)
[2019-10-11] MEDS ORDERED: MIRA3350 PO (13:46)
[2019-10-11 16:00] VITALS: BP 119/72
== END 2019-10-11 16:00 | disposition home or self-care (01) ==
LOC: M INFU 12:52
PROVIDERS: ATTEND Internal Medicine Nephrology
DX: E83.42 Hypomagnesemia (principal); Z88.1 Allergy status to other antibiotic agents; Z88.5 Allergy status to narcotic agent; Z88.8 Allergy status to other drugs, medicaments and biological substances
CPT/HCPCS: 96365; 96366; J3475

== ENCOUNTER → 2019-10-15 | Outpatient (REF) | payer MEDICARE ==
[~2019-10-15] MED LIST changes: +NEUR600T PO
[2019-10-15 14:30] LABS: INR 2.72; PROTHROMBIN TIME 28.7 SECONDS (11.8-14.0)
== END ==
LOC: M LAB REF 12:50
PROVIDERS: ATTEND Internal Medicine Nephrology
DX: Z79.01 Long term (current) use of anticoagulants (principal)

== ENCOUNTER → 2019-10-24 | Outpatient (REF) | payer MEDICARE ==
[2019-10-24 15:51] LABS: INR 2.26; PARTIAL THROMBOPLASTIN TIME 38.5 SECONDS (25.0-38.4); PROTHROMBIN TIME 24.8 SECONDS (11.8-14.0)
== END ==
LOC: M LAB REF 12:48
PROVIDERS: ATTEND Internal Medicine Nephrology
DX: N39.0 Urinary tract infection, site not specified (principal); Z79.01 Long term (current) use of anticoagulants; I48.0 Paroxysmal atrial fibrillation

== ENCOUNTER 2019-10-30 07:31 | Outpatient (CLI) | payer MEDICARE ==
[~2019-10-30] VITALS: Ht 177.8 cm; Wt 71.2 kg
[2019-10-30 07:59] VITALS: BP 124/76
[2019-10-30] MEDS: MAG SULF 1GM/100ML (MAG RUN) X 2 DOSES (2GM TOTAL) IV SCH ×4 (10:11→11:09)
[2019-10-30 12:30] VITALS: BP 129/66
--- NOTE | 2019-10-30 18:38 | ECGEPIP ---
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
== END 2019-10-30 12:50 | disposition home or self-care (01) ==
LOC: M INFU 07:31
PROVIDERS: ATTEND Internal Medicine Nephrology
DX: E83.42 Hypomagnesemia (principal); Z88.0 Allergy status to penicillin; Z88.1 Allergy status to other antibiotic agents; Z88.5 Allergy status to narcotic agent; Z88.8 Allergy status to other drugs, medicaments and biological substances
CPT/HCPCS: 93005; 96365; 96366; J3475

== ENCOUNTER 2019-11-04 08:24 | Inpatient (IN) | payer MEDICARE ==
[~2019-11-04] VITALS: Ht 177.8 cm; Wt 70.5 kg
--- NOTE | 2019-11-04 09:24 | REP ---
Clinical: Right-sided chest pain. Technique: Portable upright AP view. Comparison: 09/17/2019. Findings: Stable cardiomegaly. Lung little demonstrate chronic interstitial changes and calcified granulomata/hilar lymph nodes unchanged from prior examination. No acute consolidation, effusion, or pneumothorax. Skeletal structures demonstrate osteopenia and degenerative changes along with evidence for prior spinal surgery. Impression: Chronic stable changes. No acute cardiopulmonary process. Electronically Signed by Grupo Christianson MD 11/04/2019 09:15 A
[2019-11-04 10:13] LABS: BASO % 0.1 % (0.0-1.0); EOS # 0.1 10^3/uL (0.0-0.5); HEMATOCRIT 41.6 % (42.0-52.0); HEMOGLOBIN 12.6 g/dl (13.5-17.5); LYMPH # 1.5 10^3/uL (1.5-5.0); LYMPH % 20.8 % (24.0-44.0); MEAN CORPUSCULAR HGB CONC 30.3 g/dl (32.0-36.5); MEAN CORPUSCULAR VOLUME 95.6 fl (80.0-96.0); MONO # 0.9 10^3/uL (0.0-0.8); MONO % 11.9 % (0.0-5.0); NEUTROPHILS # 4.7 10^3/uL (1.5-8.5); NEUTROPHILS % 65.5 % (36.0-66.0); PLATELET COUNT, AUTOMATED 197 10^3/uL (150-450); RED BLOOD COUNT 4.35 10^6/uL (4.30-6.10); WHITE BLOOD COUNT 7.2 10^3/uL (4.0-10.0)
[2019-11-04 10:24] LABS: INR 3.21; PROTHROMBIN TIME 32.8 SECONDS (11.8-14.0)
[2019-11-04 10:25] LABS: PARTIAL THROMBOPLASTIN TIME 60.9 SECONDS (25.0-38.4)
[2019-11-04] MEDS ORDERED: cefTRIAXone SOD 1 GM in D5W MINI-BAG PLUS 50 ML IV ONE (10:30)
[2019-11-04] MEDS ORDERED: NS 1,000 ML IV ONE (10:30)
--- NOTE | 2019-11-04 10:30 | REP ---
Clinical: Abdominal pain. History of kidney transplant along with ureteral stent placement at Technique: Axial noncontrast images from the lung bases to the pubic symphysis with coronal and sagittal re-formations. Comparison: 09/12/2019, 09/17/2019. Findings: Transplant kidney in the right liz pelvis is again identified and the percutaneous ureteral stent extending via the right anterolateral abdominal wall into the kidney and extending via the right ureter into the bladder is in stable position as compared to prior examination. The previously identified 9 mm obstructing ureteral calculus has now regressed back into the renal pelvis. Current examination demonstrates mild perinephric stranding and small amount of gas in the renal collecting system and bladder. Correlation with urinalysis is recommended to exclude pyelonephritis. Liver, spleen, pancreas, gallbladder, and bilateral adrenal glands are normal / stable. Evaluation of the enteric system demonstrates stable left inguinal hernia containing nonobstructed loop of sigmoid colon. There is no evidence for bowel obstruction or acute inflammatory process of the enteric system. Pelvis demonstrates partially collapsed bladder along with age appropriate prostate/seminal vesicles. No ascites. No free air. No significant adenopathy. Atherosclerotic changes to the aorta and vasculature noted. Evidence for prior ventral hernia repair with small stable seroma in the anterior subcutaneous tissue. Osseous structures demonstrate degenerative changes and evidence for prior fixation and laminectomy with stable fluid collection in the subcutaneous tissue posterior midline surrounding the L3 - S1 region. Impression: 1. Right transplant kidney as described above with mild perinephric stranding raising the possibility of pyelonephritis and correlation with urinalysis is recommended. The previously identified 9 mm obstructing proximal ureteral calculus has regressed back into the right renal pelvis. 2. Stable nonobstructing left inguinal hernia with loop of sigmoid colon. 3. Further nonacute chronic findings as described above. Electronically Signed by Grupo Christianson MD 11/04/2019 10:20 A
[2019-11-04 10:40] LABS: BILIRUBIN, URINE MANUAL NEGATIVE (NEGATIVE); GLUCOSE, URINE (UA) MANUAL NEGATIVE (NEGATIVE); KETONE, URINE MANUAL NEGATIVE (NEGATIVE); UROBILINOGEN, URINE MANUAL NORMAL (NORMAL)
[2019-11-04 10:46] LABS: ALBUMIN 3.4 GM/DL (3.2-5.2); ALT/SGPT 17 U/L (12-78); BILIRUBIN,DIRECT 0.2 MG/DL (0.0-0.2); BILIRUBIN,TOTAL 0.6 MG/DL (0.2-1.0); CPK CREATINE PHOSPHOKINASE 52 U/L (39-308); LIPASE 40 U/L (73-393); MAGNESIUM LEVEL 1.6 MG/DL (1.8-2.4); MB/CK RELATIVE INDEX 1.92 (< OR =4); TOTAL PROTEIN 6.4 GM/DL (6.4-8.2); TROPONIN I < 0.02 NG/ML (< 0.10)
[2019-11-04 10:51] LABS: RBC, URINE 40-50 /hpf (0-3)
[2019-11-04 10:53] LABS: SQUAMOUS EPITHELIAL CELL URINE NONE SEEN /hpf (SMALL AMT)
[2019-11-04 10:55] LABS: BACTERIA, URINE MOD AMOUNT; HYALINE CAST, URINE NONE SEEN /lpf (0-1); RENAL EPITHELIAL CELLS, URINE SMALL AMOUNT /hpf
[2019-11-04 10:56] LABS: AMORPHOUS SEDIMENT, URINE SMALL AMOUNT (NEGATIVE)
[2019-11-04] MEDS ORDERED: WARF-58 PO (11:28)
[2019-11-04] MEDS ORDERED: SIRO1TAB4 PO (11:28)
[2019-11-04] MEDS ORDERED: AZAT50TA2 PO (11:28)
[2019-11-04] MEDS ORDERED: TORS10TA3 PO (11:28)
[2019-11-04] MEDS ORDERED: OXYC1TAB23 PO (11:28)
[2019-11-04] MEDS ORDERED: DIGO0.253 PO (11:28)
[2019-11-04] MEDS ORDERED: DIAZ2TAB PO (11:28)
[2019-11-04] MEDS ORDERED: ACETAMINOPHEN TAB 650MG DOSE (2X325MG) PO PRN (12:00)
[2019-11-04] MEDS ORDERED: ONDANSETRON 4 MG TAB (S0181) PO PRN (12:00)
[2019-11-04] MEDS ORDERED: NS 1,000 ML IV SCH (12:00)
[2019-11-04] MEDS ORDERED: BISACODYL 10 MG SUPP PR PRN (12:00)
[2019-11-04] MEDS ORDERED: DOCUSATE SODIUM 100 MG CAP PO PRN (12:00)
[2019-11-04] MEDS ORDERED: MIRALAX *UNIT DOSE* 17GM PACKET PO PRN (12:00)
--- NOTE | 2019-11-04 12:09 | HPEPDOC ---
[facility] Medical History & Physical Date of Admission Nov 04, 2019 Date of Service: Nov 04, 2019 Attending Physician: BLESSING DIEZ MD History and Physical CHIEF COMPLAINT: Dysuria, chills HISTORY OF PRESENT ILLNESS: 74-year-old male with past medical history of end- stage renal disease, was temporarily on dialysis, status post renal transplant in 2006, atrial fibrillation (on Coumadin), hypertension, compression fracture, status post multiple back surgeries, presents from home with dysuria, chills and decreased urine output. Patient has a nephrostomy tube placed in the transplanted kidney, less than 2 months ago due to an obstructive calculi, reports hematuria started a few days ago through the nephrostomy tube, usually makes less than 30 mL of urine from the bladder per day, reports slight dysuria with urination along with suprapubic pain. Patient has chronic back pain from multiple compression fractures and back surgeries, reports pain is also worsened recently. Imaging in the ED shows pallor nephritis, evaluated by nephrology in the ED and I reviewed were recommended. 10 point review of system is negative except for above PAST MEDICAL HISTORY: 1. End-stage renal disease. 2. Hypertension. 3. Atrial fibrillation. 4. Compression fracture. 5. Hypomagnesemia PAST SURGICAL HISTORY: 1. AV fistula. 2. Renal transplant. 3. Multiple back surgeries. SOCIAL HISTORY: Previous smoker, quit over 30 years ago. Denies alcohol use. Denies drug use FAMILY HISTORY: Father had heart disease ALLERGIES: Please see below. HOME MEDICATIONS: Please see below. PHYSICAL EXAMINATION: VITAL SIGNS: Please see below. GENERAL: No distress HEENT: Normocephalic, atraumatic, moist mucous membranes NECK: Supple CARDIOVASCULAR EXAMINATION: S1, S2, systolic murmur appreciated RESPIRATORY EXAMINATION: Clear to auscultation, no wheezing ABDOMINAL EXAMINATION: Soft, transplanted kidney appreciated in the right lower quadrant, mild tenderness over the kidney, nephrostomy draining pink/red urine, nondistended, positive bowel sounds EXTREMITIES: Range of motion intact SKIN: No rash NEUROLOGICAL EXAMINATION: Alert and oriented 3, no focal deficits PSYCHIATRIC EXAMINATION: Calm and cooperative LABORATORY DATA: See below. IMAGING: CT scan of the abdomen and pelvis concerning for pyelonephritis MICROBIOLOGY: Please see below. ASSESSMENT: 74-year-old male with history of end-stage renal disease, status post renal transplant, now presenting with pyelonephritis. PLAN: 1. Pyelonephritis. History of renal transplant, recent obstructive calculi in the transplanted kidney, status post nephrostomy tube placement less than 2 months ago, continue ceftriaxone, urine and blood cultures pending. Evaluated by nephrology in the emergency department. Gentle IV hydration. 2. End-stage renal disease. Was on hemodialysis, status post renal transplant in 2006, recent nephrostomy placement, reportedly had decreased urine output and having hematuria, creatinine at baseline, will hold torsemide for now, continue amiloride, gentle IV hydration, will monitor clinically. Continue azathioprine sirolimus and prednisone 5 mg daily 3. Atrial fibrillation. Continue Coumadin, INR therapeutic, digoxin for rate control. 4. Hypomagnesemia. Continue oral magnesium supplementation. DVT prophylaxis on Coumadin. GI prophylaxis: Not needed Vital Signs Vital Signs Date Time Temp Pulse Resp B/P (MAP) Pulse Ox O2 Delivery O2 Flow Rate FiO2 11/04/19 08:38 11/04/19 08:24 98.4 84 20 97 Room Air Laboratory Data Labs 24H Laboratory Tests 2 11/04/19 09:01: Urine Color YELLOW, Urine Appearance CLOUDYH, Urine pH 7.0, Urine Specific [place] 1.013, Urine Protein 2+H, Urine Glucose (UA) NEGATIVE, Urine Ketones NEGATIVE, Urine Blood 3+H, Urine Nitrite POSITIVEH, Urine Bilirubin NEGATIVE, Urine Urobilinogen 0.2, Urine Leukocyte Esterase 3+H, Urine WBC (Auto) 171H, Urine RBC (Auto) TNTCH, Urine Hyaline Casts (Auto) 0, Urine Bacteria (Auto) 3+H, Urine Squamous Epithelial Cells 1, Urine Mucus (Auto) SMALL, Urine Sperm (Auto) 11/04/19 09:45: Magnesium Level 1.6L, Total Bilirubin 0.6, Direct Bilirubin 0.2, Aspartate Amino Transf (AST/SGOT) 14, Alanine Aminotransferase (ALT/SGPT) 17, Alkaline Phosphatase 109, Total Creatine Kinase 52, Creatine Kinase MB 1.0, Creatine Kinase MB Relative Index 1.92, Troponin I < 0.02, Total Protein 6.4, Albumin 3.4, Albumin/Globulin Ratio 1.13, Lipase 40L 11/04/19 09:46: Immature Granulocyte % (Auto) 0.7, Neutrophils (%) (Auto) 65.5, Lymphocytes (%) (Auto) 20.8L, Monocytes (%) (Auto) 11.9H, Eosinophils (%) (Auto) 1.0, Basophils (%) (Auto) 0.1, Neutrophils # (Auto) 4.7, Lymphocytes # (Auto) 1.5, Monocytes # (Auto) 0.9H, Eosinophils # (Auto) 0.1, Basophils # (Auto) 0.0, Nucleated Red Blood Cells % (auto) 0.0, Prothrombin Time 32.8H, Prothromb Time International Ratio 3.21, Activated Partial Thromboplast Time 60.9H, Lactic Acid Level 0.9 11/04/19 10:07: POC Glucose (Misc Panel) 107H, POC Sodium (Misc Panel) 140, POC Potassium (Misc Panel) 4.3, POC Chloride (Misc Panel) 103, POC Total CO2 (Misc Panel) 31.0H, POC Blood Urea Nitrogen (Misc Panel 11, POC Ionized Calcium (Misc Panel) 5.7H, POC Creatinine (Misc Panel) 0.8, POC Hematocrit (Misc Panel) 39.0 11/04/19 10:12: Urine Color (SHERON) PINKH, Urine Appearance (SHERON) CLOUDYH, Urine pH (SHERON) 8.0, Urine Specific [place] (SHERON) 1.010, Bedside Urine Glucose (UA) NEGATIVE, Bedside Urine Ketones (LAB) NEGATIVE, Bedside Urine Blood POSITIVEH, Bedside Urine Nitrite (LAB) POSITIVEH, Bedside Urine Bilirubin (LAB) NEGATIVE, Bedside Urine Urobilinogen (LAB) NORMAL, Bedside Urine Leukocyte Esterase (L POSITIVEH, Urine Sediment Examination PERFORMED, Urine RBC 40-50, Urine WBC 20-30H, Urine Bladder Epithelial Cells , Urine Squamous Epithelial Cells NONE SEEN, Urine Transitional Epithelial Cells , Urine Renal Epithelial Cells SMALL AMOUNTH, Urine Amorphous Sediment SMALL AMOUNTH, Urine Bacteria MOD AMOUNTH, Urine Hyaline Casts NONE SEEN CBC/BMP Laboratory Tests 11/04/19 09:46 Microbiology Microbiology 11/04/19 Blood Culture, Received Pending 11/04/19 Urine Culture, Received Pending 11/04/19 Urine Culture, Received Pending 11/04/19 Blood Culture, Received Pending Home Medications Scheduled Amiloride HCl (Amiloride HCl) 5 Mg Tablet, 5 MG PO DAILY Aspirin (Aspir 81) 81 Mg Tab, 81 MG PO DAILY Azathioprine (Azathioprine) 50 Mg Tablet, 100 MG PO DAILY Calcitriol (Calcitriol) 0.25 Mcg Cap, 0.25 MCG PO 5XW MON-FRI Digoxin (Digoxin) 250 Mcg Tablet, 250 MCG PO DAILY Duloxetine Hcl (Cymbalta) 30 Mg Capsule.dr, 30 MG PO DAILY Gabapentin (Neurontin) 600 Mg Tablet, 600 MG PO TID Magnesium Gluconate (Magnesium Gluconate) 27 Mg Tablet, 3,000 MG PO BID Prednisone (Prednisone) 5 Mg Tab, 5 MG PO DAILY Sennosides (Senna Lax) 8.6 Mg Tablet, 17.2 MG PO QHS Sirolimus (Sirolimus) 2 Mg Tablet, 2 MG PO DAILY Sod Phos Di, Swift/K Phos Swift (Virt-Phos 250 Neutral Tablet) 1 Tab Tab, 2 TAB PO TID Torsemide (Torsemide) 10 Mg Tablet, 10 MG PO DAILY Vitamin B Complex Vit C No.3 (B Complex with Vitamin C) 1 Cap Cap, 1 CAP PO DAILY Warfarin Sodium (Warfarin Sodium) 3 Mg Tablet, 3 MG PO QHS Scheduled PRN Acetaminophen (Acetaminophen) 325 Mg Tablet, 650 MG PO Q4H PRN for PAIN Bisacodyl (Bisacodyl) 10 Mg Supp.rect, 10 MG TN DAILY PRN for CONSTIPATION Cyclobenzaprine HCl (Cyclobenzaprine HCl) 10 Mg Tablet, 10 MG PO BID PRN for MUSCLE SPASMS Diazepam (Diazepam) 2 Mg Tablet, 2 MG PO TID PRN for ANXIETY Docusate Sodium (Docusate Sodium) 100 Mg Capsule, 100 MG PO DAILY PRN for CONS TIPATION Lidocaine (Lidoderm) 5% Adh..patch, 1 PATCH TOP DAILY PRN for PAIN may wear up to 12 hours Melatonin (Melatonin) 10 Mg Capsule, 10 MG PO QHS PRN for SLEEP Ondansetron HCl (Zofran) 4 Mg Tablet, 4 MG PO TID PRN for NAUSEA OR VOMITING Oxycodone HCl/Acetaminophen (Oxycodone-Acetaminophen 5-325) 1 Each Tablet, 1 TAB PO Q6H PRN for PAIN Polyethylene Glycol 3350 (Miralax) 119 Gm Powder, 17 GRAM PO DAILY PRN for CONSTIPATION DISSOLVE IN WATER OR JUICE Allergies Coded Allergies: ciprofloxacin (Verified Allergy, Unknown, 12/20/18) amoxicillin (Verified Adverse Reaction, Intermediate, can take few prior to dentist but can not take for 10 days, 12/20/18) pregabalin (Verified Adverse Reaction, Intermediate, UNKNOWN, 12/20/18) tizanidine (Verified Adverse Reaction, Intermediate, 12/20/18) Quinolones (Verified Adverse Reaction, Mild, ANXIETY, 12/20/18) cefuroxime (Verified Adverse Reaction, Mild, ANXIETY, 12/20/18) codeine (Verified Adverse Reaction, Mild, AGITATION, 12/20/18) lorazepam (Verified Adverse Reaction, Mild, AGITATION, 12/20/18) A-FIB/CHADSVASC A-FIB History Current/History of A-Fib/PAF?: Yes Current PO Anticoag Therapy: Yes BLESSING DIEZ MD Nov 04, 2019 12:09
[2019-11-04] MEDS: LIDOCAINE 5% (LIDODERM) PATCH TOP PRN (13:04)
[2019-11-04] MEDS: CYCLOBENZAPRINE 10 MG TAB PO PRN (13:04)
[2019-11-04] MEDS: predniSONE 5 MG TAB PO SCH (13:05)
[2019-11-04] MEDS: DULoxetine 30 MG CAP (CYMBALTA) PO SCH (13:05)
[2019-11-04] MEDS: DIGOXIN 0.25 MG TAB PO SCH (13:05)
[2019-11-04] MEDS: ASPIRIN 81 MG ENTERIC TAB PO SCH (13:05)
[2019-11-04] MEDS: PERCOCET 5MG/325MG TAB PO PRN ×2 (13:05→19:46)
[2019-11-04 13:52] VITALS: BP 135/86
[2019-11-04] MEDS: MORPHINE 2 MG/ML 1ML VIAL (J2270) IV PRN ×2 (14:09→20:28)
[2019-11-04] MEDS: azaTHIOprine 50 MG TAB (J7500) PO SCH (16:02)
[2019-11-04] MEDS: aMILoride 5 MG TAB PO SCH (16:03)
[2019-11-04] MEDS: VITAMIN B COMPLEX/VIT C CAP PO SCH (16:03)
[2019-11-04] MEDS: GABAPENTIN 300 MG CAP PO SCH ×2 (16:03→20:14)
[2019-11-04] MEDS: K-PHOS NEUTRAL 250MG TABLET (SOD.PHOSPHATE/POT.PHOSPHATE) PO SCH ×2 (16:03→20:13)
[2019-11-04] MEDS ORDERED: WARFARIN SOD 3 MG TAB PO SCH (17:00)
--- NOTE | 2019-11-04 19:12 | ECGEPIP ---
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
[2019-11-04] MEDS: MAGNESIUM GLUCONATE 500 MG TAB PO SCH (20:14)
[2019-11-04] MEDS: **NOTE PATIENT COMMENT** MISC XX SCH (20:14)
[2019-11-04] MEDS: SENNA 8.6 MG TAB (SENOKOT) PO SCH (20:14)
[2019-11-04 22:00] VITALS: BP 110/81
[2019-11-04] MEDS: diazePAM 2 MG TAB PO PRN (23:03)
[2019-11-05] MEDS: PERCOCET 5MG/325MG TAB PO PRN ×3 (02:17→16:49)
[2019-11-05] MEDS: MORPHINE 2 MG/ML 1ML VIAL (J2270) IV PRN ×3 (03:27→20:57)
[2019-11-05] MEDS: CYCLOBENZAPRINE 10 MG TAB PO PRN (05:20)
[2019-11-05 06:00] VITALS: BP 118/80
[2019-11-05 06:49] LABS: HEMATOCRIT 34.9 % (42.0-52.0); HEMOGLOBIN 10.8 g/dl (13.5-17.5); MEAN CORPUSCULAR HEMOGLOBIN 29.7 pg (27.0-33.0); MEAN CORPUSCULAR HGB CONC 30.9 g/dl (32.0-36.5); MEAN CORPUSCULAR VOLUME 95.9 fl (80.0-96.0); PLATELET COUNT, AUTOMATED 180 10^3/uL (150-450); RED BLOOD COUNT 3.64 10^6/uL (4.30-6.10); WHITE BLOOD COUNT 6.4 10^3/uL (4.0-10.0)
--- NOTE | 2019-11-05 06:51 | CR ---
DATE OF CONSULTATION: 11/04/2019 REQUESTING PHYSICIAN: Dr. Dunn CONSULTING PHYSICIAN: Dr. Caballero. CHIEF COMPLAINT: Dysuria and pain at the transplant site. HISTORY OF PRESENT ILLNESS: Mr. 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 A few days ago he started having hematuria to the nephrostomy tube and then the amount of urine output from the nephrostomy decreased and then he started urinating through the urethra and it was a bloody tinged urine. After that the patient started having some chills. The patient presented to the emergency room for further evaluation. On further evaluation in the emergency room the patient was found to have cloudy urine with large leukocyte esterase and nitrites in the urine with too numerous to count rbc's and a high amount of wbc's and bacteria. CAT scan of the abdomen was also done which showed stranding around the renal allograft but with no hydronephrosis. The patient is being admitted under the hospitalist service for acute pyelonephritis of the renal allograft. The nephrology service was called for further help in the management of this patient with history of renal allograft status. I saw and evaluated the patient at the bedside today morning. Plan of care was discussed with the emergency room (ER) physician Dr. Candy Dunn; managed to get this patient intravenous (IV) antibiotics and if he had any issues with the nephrostomy tube he can be seen by interventional radiology tomorrow morning. PAST MEDICAL HISTORY: 1. Renal allograft status. 2. Hypertension. 3. Atrial fibrillation. 4. Multiple compression fractures because of severe osteoporosis. 5. Hypomagnesemia. 6. History of appendectomy in the past. 7. History of arteriovenous (AV) graft placement in the left. 8. Hernia repair surgery. 9. Spinal surgery. 10. Renal allograft surgery. ALLERGIES: The patient the patient is allergic to QUINOLONES, PENICILLINS, CEFUROXIME, CODEINE, LORAZEPAM, PREGABALIN and TIZANIDINE. FAMILY HISTORY: No significant family history of end-stage renal disease requiring hemodialysis. SOCIAL HISTORY: The patient lives at home denies any illicit drug abuse or alcohol abuse. REVIEW OF SYSTEMS: Constitutional: The patient does report some weakness and chills. Eyes: He denies any blurry vision, or double vision. ENT: Denies any dysphagia, odynophagia. Cardiovascular: Denies any chest pain, palpitation. Respiratory: Denies any shortness of breath. Gastrointestinal (GI) Denies any nausea, vomiting. Genitourinary: He reports pain at the transplant site, dysuria and hematuria in the nephrostomy tube. Musculoskeletal: He denies any muscle aches and pains but he does report multiple spinal surgeries and history of back pain. Skin: He denies any rashes or ulcers. Hematology/Oncology: He denies any easy bleeding or bruising. Psych: He denies any depression or anxiety. 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 All other review of systems is negative. PHYSICAL EXAMINATION: General: The patient is awake, alert, oriented times three laying in bed. Vital signs: Temperature is 97.6 degrees Fahrenheit, blood pressure 135/86, pulse is 81, respiratory of 18, saturating 96% on room air. Head and neck exam: Extraocular muscles intact. Pupils equally round and reactive to light. Mucous membranes are moist. Neck is supple. There is no jugular venous distention (JVD). Cardiovascular: S1, S2, regular rate. Trace edema of the bilateral lower extremities. Respiratory: Chest is clear to auscultation bilaterally. Bilateral equal air entry. No rales or rhonchi. Abdomen: Soft, mildly tender, right lower quadrant renal allograft and there is a nephrostomy tube coming out from the allograft. The urine in the bag is slightly blood tinged. Musculoskeletal: No clubbing or cyanosis. Pulses are 2+. Central nervous system (DROP FORGER HELPER): No focal deficits, power is 5/5 in bilateral upper extremities. LABORATORY REVIEW: CBC showed WBC 7.2, hemoglobin 12.6, platelets of 197, INR is 3.2. Urinalysis done showed it was cloudy with positive blood. Rbc's are too numerous to count, wbc's are 171, 3+ bacteria. Microbiology: Urine culture is pending. IMAGING STUDIES: A CAT scan of the abdomen and pelvis was done today which showed right transplant kidney with mild perinephric stranding raising the possibility of pyelonephritis. Previously identified 9 mm obstructing proximal ureteral calculus has regressed back into the right renal pelvis. Stable non obstructing left inguinal hernia. CURRENT INPATIENT MEDICATIONS: The patient is currently on: - ceftriaxone 1 gram IV daily - he was given normal saline 1 liter bolus followed by 50 mL an hour - Tylenol taken as needed - amiloride 5 mg by mouth daily - aspirin 81 mg daily - azathioprine 100 mg by mouth daily - calcitriol 0.25 mcg by mouth Tuesday, Tuesday, Tuesday, and Tuesday - Flexeril 10 mg by mouth twice a day as needed - diazepam 2 mg by mouth three times as needed for anxiety - digoxin 0. 25 mg by mouth daily - Colace 100 mg by mouth daily as needed - Cymbalta 30 mg by mouth daily - gabapentin 600 mg by mouth three times a day - magnesium 3000 mg by mouth twice a day - morphine injection as needed - Zofran as needed - Percocet as needed - MiraLAX 1 packet daily as needed - K-Phos 500 mg by mouth three times a day - prednisone 5 mg by mouth daily - Senokot 2 tablets nightly - vitamin B complex - Warfarin 3 mg by mouth daily ASSESSMENT/PLAN: 1. Acute pyelonephritis. Urinary tract infection (UTI) in a transplant the patient is treated as a complicated UTI because of proximity of the renal allograft to the bladder, short transplanted ureter and the reflux from the bladder to the transplanted kidney. The patient is being treated empirically with IV ceftriaxone, final culture reports are pending. The patient is hemodynamically stable. I am going to stop the IV fluids at this time. 2. Renal allograft status. Continue current dose of prednisone and azathioprine 100 mg by mouth daily. The allograft function is normal. 3. Secondary hyperparathyroidism. Continue home dose of calcitriol. 4. Atrial fibrillation. Heart rate is controlled with digoxin. He is currently anticoagulated with Coumadin 3 mg by mouth daily. 5. Chronic hypomagnesemia. Continue current dose of oral magnesium oxide. Continue amiloride 5 mg by mouth daily. 6. Lower extremity edema. The patient's torsemide is being held. 7. Nephrostomy status. The patient has a nephrostomy tube and a renal allograft. If he has further issues with the nephrostomy tube drainage he can be seen by interventional radiology tomorrow morning. Thank you for involving me in the care of this patient. I shall be happy to follow the patient along with you tomorrow morning. Plan of care was discussed with the emergency room (ER) physician, Dr. Candy Dunn. VAIBHAV
[2019-11-05 07:06] LABS: INR 3.62; PROTHROMBIN TIME 36.1 SECONDS (11.8-14.0)
[2019-11-05 07:17] LABS: ALBUMIN 2.7 GM/DL (3.2-5.2); ALT/SGPT 12 U/L (12-78); BILIRUBIN,TOTAL 0.5 MG/DL (0.2-1.0); BLOOD UREA NITROGEN 10 MG/DL (7-18); CALCIUM LEVEL 9.3 MG/DL (8.8-10.2); CARBON DIOXIDE LEVEL 27 MEQ/L (21-32); CHLORIDE LEVEL 107 MEQ/L (98-107); CREATININE FOR GFR 0.62 MG/DL (0.70-1.30); GLOMERULAR FILTRATION RATE > 60.0 (>42); GLUCOSE, FASTING 101 MG/DL (70-100); MAGNESIUM LEVEL 1.5 MG/DL (1.8-2.4); POTASSIUM SERUM 3.8 MEQ/L (3.5-5.1); SODIUM LEVEL 138 MEQ/L (136-145); TOTAL PROTEIN 5.8 GM/DL (6.4-8.2)
[2019-11-05] MEDS: GABAPENTIN 300 MG CAP PO SCH ×3 (08:26→20:37)
[2019-11-05] MEDS: RAPAMUNE 1 MG PO SCH (08:26)
[2019-11-05] MEDS: ASPIRIN 81 MG ENTERIC TAB PO SCH (08:26)
[2019-11-05] MEDS: CALCITRIOL 0.25 MCG CAP (S0169) PO SCH (08:26)
[2019-11-05] MEDS: MAGNESIUM GLUCONATE 500 MG TAB PO SCH ×2 (08:27→20:38)
[2019-11-05] MEDS: K-PHOS NEUTRAL 250MG TABLET (SOD.PHOSPHATE/POT.PHOSPHATE) PO SCH ×3 (08:27→20:37)
[2019-11-05] MEDS: VITAMIN B COMPLEX/VIT C CAP PO SCH (08:27)
[2019-11-05] MEDS: DULoxetine 30 MG CAP (CYMBALTA) PO SCH (08:27)
[2019-11-05] MEDS: predniSONE 5 MG TAB PO SCH (08:27)
[2019-11-05] MEDS: LIDOCAINE 5% (LIDODERM) PATCH TOP PRN (08:28)
[2019-11-05] MEDS: azaTHIOprine 50 MG TAB (J7500) PO SCH (08:28)
[2019-11-05] MEDS: aMILoride 5 MG TAB PO SCH (08:28)
[2019-11-05] MEDS: DIGOXIN 0.25 MG TAB PO SCH (08:28)
--- NOTE | 2019-11-05 09:11 | IPN ---
DATE: 11/05/2019 Chato Kwon is a hospitalist patient seen on . He was admitted with presumed pyelonephritis. He has a history of a renal transplant, has a nephrostomy tube that has been in place to his kidney since the end of August. He was admitted with presumed pyelonephritis and decreased urinary output through the nephrostomy. Currently on intravenous (IV) ceftriaxone with cultures pending. He has been seen by nephrology, Dr. Caballero. His consultation has been reviewed. The patient has a history of chronic lower extremity edema, atrial fibrillation, chronic hypomagnesemia. He feels well, better than yesterday. No flank pain. He is putting out urine into the nephrostomy, 600 mL overnight. PHYSICAL EXAM: Afebrile, maximum temperature (Tmax) 100.2, 118/80. General Appearance: Alert, conversant, in no distress. Lungs: Clear. Heart: Regular rhythm. Abdomen: Soft, nontender. Nephrostomy is draining clear urine. 1+ peripheral edema. LABS: White count 6.4, hemoglobin 10.8, platelets 180. Sodium 138, potassium 3.8, BUN 10, creatinine 0.6, glucose 101, magnesium 1.5. Cultures are pending. IMPRESSION: 1. Presumed pyelonephritis in transplanted kidney. Continue ceftriaxone until cultures back. 2. Nephrostomy tube issues. Interventional radiology consulted. He did put out quite a bit more urine yesterday. If nephrology does not feel the that the interventional radiology evaluation is warranted, I can cancel it. 3. Chronic hypomagnesemia. Continue his magnesium supplement. 4. Atrial fibrillation. His rate is controlled. His international normalized ratio (INR) is supratherapeutic at 3.6. I will hold his warfarin today, then use warfarin eventually restarted and daily INRs have been ordered.
[2019-11-05] MEDS: cefTRIAXone SOD 1 GM in D5W MINI-BAG PLUS 50 ML IV SCH (11:13)
[2019-11-05] MEDS ORDERED: WARFARIN SOD 3 MG TAB PO SCH (17:00)
[2019-11-05] MEDS: SENNA 8.6 MG TAB (SENOKOT) PO SCH (20:37)
[2019-11-05] MEDS: diazePAM 2 MG TAB PO PRN (20:37)
[2019-11-05] MEDS: **NOTE PATIENT COMMENT** MISC XX SCH (20:38)
[2019-11-05 22:00] VITALS: BP 107/72
[2019-11-06] MEDS: PERCOCET 5MG/325MG TAB PO PRN ×3 (02:06→18:38)
[2019-11-06 06:00] VITALS: BP 138/66
[2019-11-06 06:30] LABS: HEMATOCRIT 35.6 % (42.0-52.0); HEMOGLOBIN 10.9 g/dl (13.5-17.5); MEAN CORPUSCULAR HEMOGLOBIN 29.3 pg (27.0-33.0); MEAN CORPUSCULAR HGB CONC 30.6 g/dl (32.0-36.5); MEAN CORPUSCULAR VOLUME 95.7 fl (80.0-96.0); PLATELET COUNT, AUTOMATED 190 10^3/uL (150-450); RED BLOOD COUNT 3.72 10^6/uL (4.30-6.10); WHITE BLOOD COUNT 6.1 10^3/uL (4.0-10.0)
[2019-11-06 06:41] LABS: INR 2.6; PROTHROMBIN TIME 27.7 SECONDS (11.8-14.0)
[2019-11-06 06:50] LABS: ALBUMIN 2.8 GM/DL (3.2-5.2); BLOOD UREA NITROGEN 9 MG/DL (7-18); CALCIUM LEVEL 9.7 MG/DL (8.8-10.2); CARBON DIOXIDE LEVEL 27 MEQ/L (21-32); CHLORIDE LEVEL 109 MEQ/L (98-107); CREATININE FOR GFR 0.65 MG/DL (0.70-1.30); GLOMERULAR FILTRATION RATE > 60.0 (>42); GLUCOSE, FASTING 109 MG/DL (70-100); MAGNESIUM LEVEL 1.6 MG/DL (1.8-2.4); PHOSPHORUS LEVEL 2.7 MG/DL (2.5-4.9); POTASSIUM SERUM 4.1 MEQ/L (3.5-5.1); SODIUM LEVEL 142 MEQ/L (136-145)
--- NOTE | 2019-11-06 07:24 | IPN ---
DATE: 11/05/2019 SUBJECTIVE: The patient was seen and examined at the bedside this morning. He reports that his pain at the renal allograft site is better today as compared with yesterday. He denies any fevers and chills. Renal allograft function is stable and urine in the percutaneous nephrostomy bag is getting more clear now. OBJECTIVE: Vital Signs: Temperature was 99.2 degrees Fahrenheit early in the morning. T-max was 100.1 degrees Fahrenheit at around 2-o'clock in the morning. Blood pressure is 118/80, pulse is 82, respiratory of 18, saturating 99% on room air. Intake and output urine output recorded is 300 mL yesterday, almost 2 liters so far today since overnight. Weight on the bed scale is not available. PHYSICAL EXAMINATION: GENERAL: The patient is awake, alert, oriented times three, laying in bed in no apparent distress. HEAD AND NECK EXAM: Extraocular muscles intact. Pupils equally round and reactive to light. Mucous membranes are moist. Neck is supple. There is no jugular venous distention (JVD). CARDIOVASCULAR: S1, S2 regular rate. Trace edema of the bilateral lower extremities. RESPIRATORY: Chest is clear to auscultation bilaterally. Bilateral equal air entry. No rales or rhonchi. ABDOMEN: Soft, positive bowel sounds. He has a right lower quadrant renal allograft which is mildly tender to deep palpation. There is percutaneous nephrostomy in the renal allograft. Urine in the <<1:38>> nephrostomy bag is getting more clear now. MUSCULOSKELETAL: No clubbing or cyanosis. Pulses are 2+. PROPERTY MAINTENANCE TECHNICIAN: No focal deficit. Power is 5/5 in bilateral upper extremities. LAB REVIEW: CBC showed WBC 6.4, hemoglobin 10.8, platelets of 780. BMP showed sodium 138, potassium 3.85, chloride 107, bicarb 27, BUN 10, creatinine is 0.62, calcium 9.3, magnesium 1.5, albumin is 2.7. Microbiology: Blood cultures are negative so far. Urine cultures are still pending. CURRENT INPATIENT MEDICATIONS: The patient's medications were all reviewed by me. He continues to been IV ceftriaxone. He continues to be on amiloride. Loop diuretic is on hold at this time. Warfarin was held today because of supratherapeutic INR. ASSESSMENT/PLAN: 1. Acute pyelonephritis of the renal allograft: The patient's cultures are pending so far. He continues to be on empiric IV ceftriaxone. His pain is better now. Urine is getting more clear. 2. Renal allograft status. Continue current dose of azathioprine, prednisone and sirolimus 2 mg p.o. daily. 3. Percutaneous nephrostomy status: I have discussed the nephrostomy tube with interventional radiology today. The patient got the nephrostomy placed on September 20, 2019. The patient will be placed on outpatient list for regular nephrostomy tube exchange every 3 months. No urgent need to change nephrostomy as recommended by interventional radiology. 4. Atrial fibrillation: Heart rate is controlled with digoxin. Coumadin was held today because supratherapeutic INR. 5. Chronic hypomagnesemia. Continue current dose of magnesium oxide and amiloride.
[2019-11-06] MEDS: MORPHINE 2 MG/ML 1ML VIAL (J2270) IV PRN (10:06)
[2019-11-06] MEDS ORDERED: FUROSEMIDE 40 MG/4 ML VIAL (J1940) IV ONE (11:00)
[2019-11-06] MEDS ORDERED: MAG SULF 1GM/100ML (MAG RUN) 1 GM in IV 1 EA IV ONE (11:00)
[2019-11-06] MEDS: VITAMIN B COMPLEX/VIT C CAP PO SCH (11:14)
[2019-11-06] MEDS: RAPAMUNE 1 MG PO SCH (11:14)
[2019-11-06] MEDS: MAGNESIUM GLUCONATE 500 MG TAB PO SCH ×2 (11:15→20:41)
[2019-11-06] MEDS: K-PHOS NEUTRAL 250MG TABLET (SOD.PHOSPHATE/POT.PHOSPHATE) PO SCH ×3 (11:15→20:41)
[2019-11-06] MEDS: GABAPENTIN 300 MG CAP PO SCH ×3 (11:15→20:40)
[2019-11-06] MEDS: ASPIRIN 81 MG ENTERIC TAB PO SCH (11:16)
[2019-11-06] MEDS: DULoxetine 30 MG CAP (CYMBALTA) PO SCH (11:16)
[2019-11-06] MEDS: aMILoride 5 MG TAB PO SCH (11:16)
[2019-11-06] MEDS: CALCITRIOL 0.25 MCG CAP (S0169) PO SCH (11:16)
[2019-11-06] MEDS: predniSONE 5 MG TAB PO SCH (11:16)
[2019-11-06] MEDS: cefTRIAXone SOD 1 GM in D5W MINI-BAG PLUS 50 ML IV SCH (11:17)
[2019-11-06] MEDS: azaTHIOprine 50 MG TAB (J7500) PO SCH (11:17)
[2019-11-06] MEDS: DIGOXIN 0.25 MG TAB PO SCH (11:17)
--- NOTE | 2019-11-06 11:34 | IPN ---
DATE: 11/06/2019 SUBJECTIVE: The patient was seen and examined at the bedside this morning. He is afebrile, hemodynamically stable. I talked to the microbiology laboratories, preliminarily he is growing gram-negative rods in the urine culture, final speciation is not available at this time. He continues to be on intravenous ceftriaxone. His renal function is stable. He does complain of worsening lower extremity edema. OBJECTIVE Vital signs: Temperature is 98.2 degrees Fahrenheit, blood pressure 138/66, pulse is 54, respiratory of 18, saturating 99% on room air. Intake and output: urine output recorded is 1.5 liters yesterday, 750 mL so far today. Weight on the bed scale is not available. PHYSICAL EXAMINATION General: The patient is awake, alert, oriented times three, laying in bed in no apparent distress. Head and neck exam: Extraocular muscles intact. Pupils equal round and reactive to light. Mucous membranes are moist. Neck is supple. THere is no jugular venous distention (JVD). Cardiovascular: S1, S2 regular rate, 2+ edema of the ankles and 1+ edema of the upper extremities. Respiratory: Chest is clear to auscultation bilaterally. Bilateral equal air entry. No rales or rhonchi. Abdomen: Soft, positive bowel sounds. Right lower quadrant nephrostomy tube and the renal allograft was noted. There is no tenderness of the nephrostomy site. Musculoskeletal: No clubbing or cyanosis. Pulses are 2+. Central nervous system (TREATING ENGINEER): No focal deficit. Power is 5/5 in all extremities. LABORATORY REVIEW: CBC showed WBC 6.1, hemoglobin 10.9, platelets of 190. BMP showed sodium 142, potassium 4.1, chloride 109, bicarb 27, BUN 9, creatinine is 0.65, calcium 9.7, phosphorus 2.7, magnesium is 1.6, albumin 2.8. Microbiology: Final urine culture result is still pending; however, preliminary verbal report shows that it looks like gram-negative rods. CURRENT INPATIENT MEDICATIONS: The patient's medications were all reviewed by me. There is no significant change in the medications today as compared with yesterday, warfarin is still on hold. I have restarted the patient on torsemide 10 mg p.o. daily starting tomorrow and I ordered a dose of Lasix 40 mg IV times one dose today. ASSESSMENT/PLAN 1. Acute pyelonephritis of the renal allograft. The patient continues to been IV ceftriaxone. Final urine culture results are pending. Symptomatically, he is getting better. 2. Renal allograft status. Continue current dose of azathioprine, prednisone and sirolimus. 3. Percutaneous nephrostomy status. Interventional radiology plans to change it as an outpatient. It is due to be exchanged in mid November. The patient is more interested in having it changed during this hospitalization. Final decision will be made once the culture sensitivity results come back. 4. Atrial fibrillation. Heart rate is controlled with digoxin, Coumadin is on hold. 5. Lower extremity edema. The patient has been restarted on torsemide. He continues to be on amiloride. He was also given a dose of IV Lasix today.
--- NOTE | 2019-11-06 12:52 | IPNPDOC ---
Text Note Date of Service The patient was seen on 11/06/19. NOTE S: Pt examined at bedside. No events overnight. Continues to have right flank pain and hematuria in nephrostomy output. H&H stable at 10. Remains on antibiotics with question of nephrostomy removal vs exchange. Urine output has improved, with 1.5L out yesterday. PE: Vitals: see below General: NAD, A&Ox3, resting comfortably HEENT: NCAT, EOMI, anicteric sclera, MMM CV: rate controlled, irregular rhythm, 2/6 pansystolic murmue, no clicks or rub. 1+ b/l LE edema, edematous b/l hands as well RESP: CTAB, no w/r/r/ ABD: soft, NT, ND. Benign : nephrostomy tube in right flank without signs of infection in surrounding skin. Urine output bloody without visible clots. +CVA tenderness right side EXTREMITIES: 2+ radial pulses b/l, able to move all extremities NEURO: no focal deficits or acute changes A/P: Mr. Kwon is a 74-year-old male with a history of end-stage renal disease previously on dialysis, underwent a kidney transplant in 2006, with recurrent nephrolithiasis in that kidney, with a nephrostomy tube placed in end of August 2019. Came in for flank pain and decreased urine output and found to have perinephric stranding & 9 mm obstructing stone. 1. Pyelonephritis 2/2 obstructing nephrolithiasis in transplanted kidney: * He continues on ceftriaxone and urine cultures currently pending. Microbiology Lab was called who reported that his initial results showed gram-negative rods in the urine culture, with sensitivities pending - likely to result tomorrow morning. Blood cultures negative thus far. Continue antibiotic and supportive care. * There were tentative plans for patient to have nephrostomy tube removal versus exchange with IR today. However, after discussions with nephrology and IR, they suggest to leave the tube in place and to have Mr. Kwon follow-up with his initial transplant center for further management of the tube and obstructing stone. * Continue chronic azithioprine, sirolimus, prednisone for hx of kidney transplant 2. Chronic hypomagnesemia: * Despite chronic supplementation, continues to have low mag this am. * Asymptomatic. Additional supplement added 3. Chronic A. fib: * Rate is controlled on Amiloride & Digoxin * INR 2.6 today. Will f/u INR tomorrow and consider resuming Warfarin-on hold for initially supra-therapeutic levels 4. Depression/anxiety * Controlled continue Valium and Cymbalta 5. Chronic low back pain with history of fractures * S/P multiple spinal surgeries * No acute complaint. Continue chronic pain meds DVT ppx: chronic coumadin DISPO: pending urine culture sensitivity & clinical improvement. Likely dc home tomorrow. VS,Fishbone, I+O VS, Fishbone, I+O Laboratory Tests 11/06/19 05:28 Vital Signs Date Time Temp Pulse Resp B/P (MAP) Pulse Ox O2 Delivery O2 Flow Rate FiO2 11/06/19 11:17 77 11/06/19 10:06 16 133/87 11/06/19 06:00 98.2 99 Room Air I&O- Last 24 Hours up to 6 AM 11/06/19 05:59 Intake Total 2060 ml Output Total 2650 ml Balance -590 ml GME ATTESTATION GME ATTESTATION My faculty preceptor for this patient encounter was physically present during the encounter and was fully available. All aspects of the patient interview, examination, medical decision making process, and medical care plan development were reviewed and approved by the faculty preceptor. The faculty preceptor is aware and concurs with the plan as stated in the body of this note and will attest to such by his/her cosignature. ATTENDING NOTE I, Luz Lemons, have independently examined this patient and performed my own physical exam, as well as reviewed the documentation and edited where necessary. I have discussed in detail with the resident / student the findings and plan of treatment as documented by the resident / student and edited their note. I agree with their findings and treatment plan and have edited their documentation. I will continue to follow the patient during this hospital stay. LIBIA MANRIQUE DO Nov 06, 2019 12:03 LUZ LEMONS MD Nov 06, 2019 14:38
[2019-11-06 13:40] VITALS: BP 131/87
[2019-11-06] MEDS ORDERED: MAGNESIUM OXIDE 400 MG TAB (MAG-OX) PO ONE (15:00)
[2019-11-06] MEDS ORDERED: FUROSEMIDE 80 MG TAB PO ONE (15:00)
[2019-11-06] MEDS: diazePAM 2 MG TAB PO PRN ×2 (17:37→23:45)
[2019-11-06] MEDS ORDERED: traMADol 50 MG TAB PO PRN (17:45)
[2019-11-06] MEDS: SENNA 8.6 MG TAB (SENOKOT) PO SCH (20:40)
[2019-11-06] MEDS: CEFDINIR 300 MG CAP (OMNICEF) PO SCH (20:40)
[2019-11-06] MEDS: **NOTE PATIENT COMMENT** MISC XX SCH (21:26)
[2019-11-06 22:00] VITALS: BP 112/71
[2019-11-07] MEDS: PERCOCET 5MG/325MG TAB PO PRN ×2 (04:06→13:16)
[2019-11-07 06:00] VITALS: BP 121/73
[2019-11-07] MEDS ORDERED: LevoFLOXacin 750 MG TABLET PO SCH (06:00)
[2019-11-07 06:48] LABS: HEMATOCRIT 36.7 % (42.0-52.0); HEMOGLOBIN 11.2 g/dl (13.5-17.5); MEAN CORPUSCULAR HEMOGLOBIN 28.7 pg (27.0-33.0); MEAN CORPUSCULAR HGB CONC 30.5 g/dl (32.0-36.5); MEAN CORPUSCULAR VOLUME 94.1 fl (80.0-96.0); PLATELET COUNT, AUTOMATED 208 10^3/uL (150-450); WHITE BLOOD COUNT 6.2 10^3/uL (4.0-10.0)
[2019-11-07 06:57] LABS: INR 1.63; PROTHROMBIN TIME 19.1 SECONDS (11.8-14.0)
[2019-11-07 07:05] LABS: BLOOD UREA NITROGEN 15 MG/DL (7-18); CALCIUM LEVEL 9.4 MG/DL (8.8-10.2); CARBON DIOXIDE LEVEL 30 MEQ/L (21-32); CHLORIDE LEVEL 104 MEQ/L (98-107); CREATININE FOR GFR 0.73 MG/DL (0.70-1.30); GLOMERULAR FILTRATION RATE > 60.0 (>42); GLUCOSE, FASTING 119 MG/DL (70-100); MAGNESIUM LEVEL 1.6 MG/DL (1.8-2.4); PHOSPHORUS LEVEL 2.9 MG/DL (2.5-4.9); POTASSIUM SERUM 3.6 MEQ/L (3.5-5.1); SODIUM LEVEL 140 MEQ/L (136-145)
[2019-11-07] MEDS ORDERED: TORSEMIDE 10 MG TABLET PO SCH (09:00)
[2019-11-07] MEDS: DIGOXIN 0.25 MG TAB PO SCH (09:44)
[2019-11-07] MEDS: K-PHOS NEUTRAL 250MG TABLET (SOD.PHOSPHATE/POT.PHOSPHATE) PO SCH (09:44)
[2019-11-07] MEDS: ASPIRIN 81 MG ENTERIC TAB PO SCH (09:45)
[2019-11-07] MEDS: MAGNESIUM GLUCONATE 500 MG TAB PO SCH (09:45)
[2019-11-07] MEDS: aMILoride 5 MG TAB PO SCH (09:45)
[2019-11-07] MEDS: diazePAM 2 MG TAB PO PRN (09:45)
[2019-11-07] MEDS: VITAMIN B COMPLEX/VIT C CAP PO SCH (09:45)
[2019-11-07] MEDS: CALCITRIOL 0.25 MCG CAP (S0169) PO SCH (09:45)
[2019-11-07] MEDS: CEFDINIR 300 MG CAP (OMNICEF) PO SCH ×2 (09:46→10:00)
[2019-11-07] MEDS: RAPAMUNE 1 MG PO SCH (09:46)
[2019-11-07] MEDS: GABAPENTIN 300 MG CAP PO SCH (09:46)
[2019-11-07] MEDS: DULoxetine 30 MG CAP (CYMBALTA) PO SCH (09:46)
[2019-11-07] MEDS: predniSONE 5 MG TAB PO SCH (09:46)
[2019-11-07] MEDS: azaTHIOprine 50 MG TAB (J7500) PO SCH (09:46)
[2019-11-07] MEDS ORDERED: LEVA750T7 PO ×2 (10:43→12:31)
--- NOTE | 2019-11-07 12:19 | DS.PDOC ---
Discharge Summary General Date of Admission Nov 04, 2019 at 11:51 Date of Discharge 11/07/19 Specialist/Consultants Involve: PATRIA KHAN MD Discharge Summary PROCEDURES PERFORMED DURING STAY: None. DISCHARGE DIAGNOSES: 1. Pyelonephritis 2. Occluding nephrolithiasis 3. ESRD with HD in past, s/p renal transplant 2006 4. Chronic A. fib on Coumadin 5. Depression/anxiety 6. Chronic low back pain with history of fractures 7. Chronic hypomagnesemia HISTORY OF PRESENT ILLNESS: This is 74-year-old male with a history of end-stage renal disease previously on dialysis, s/p renal transplant 2006 with history of nephrolithiasis in the new kidney. He presented for decreased urine output and new onset hematuria. He reports he has had multiple episodes of kidney stones in his new transplanted kidney, however no urologic intervention was done in the past. It appears it was managed symptomatically and with supportive care. He recently had nephrostomy tube placed in the end of August 2019, however recently started noting bloody output and decreased urine along with suprapubic tenderness and pelvic discomfort. Imaging on admission revealed pyelonephritis. HOSPITAL COURSE: Patient was admitted and started on IV Ceftriaxone ultimately switched to po abx as he improved and neared discharge. Seen by nephrology - recommended gentle fluids and adjusted diuretics. Blood cultures were negative, and urine cultures grew Aeromonas Hydrophilia/Caviae susceptible to quinolones. His Cefdinir was switched to Levaquin, which he tolerated well and was sent home on 6 additional doses, equaling a total 10-day course of antibiotices. Also note, he was supratherapeutic on admission, Coumadin was held, INR monitored, and Coumadin resumed on discharge as he was no longer supratherapeutic. His hematuria resolved and urine output greatly increased, nearing 3L/day. He felt ready to go home, ambulated hallways well. He was discharged with instructions to follow-up closely with his renal transfer center in [place] regarding his nephrostomy tube and recent infection of his transplanted kidney. DISCHARGE MEDICATIONS: Please see below. ALLERGIES: Please see below. PHYSICAL EXAMINATION ON DISCHARGE: VITAL SIGNS: Please see below. General: NAD, A&Ox3, resting comfortably HEENT: NCAT, EOMI, anicteric sclera, MMM CV: rate controlled, irregular rhythm, 2/6 pansystolic murmur, no clicks or rub. 1+ b/l LE edema, edematous b/l hands RESP: CTAB, no w/r/r/ ABD: soft, NT, ND. Benign : nephrostomy tube in right flank without signs of infection, clear urine output. +CVA tenderness right side EXTREMITIES: 2+ radial pulses b/l, able to move all extremities NEURO: no focal deficits or acute changes LABORATORY DATA: Please see below. IMAGING: * 11/04/2019 CXR: Chronic stable changes. No acute cardiopulmonary process. * 11/04/2019 CT abdomen and pelvis: 1. Right transplant kidney as described above with mild perinephric stranding raising the possibility of pyelonephritis and correlation with urinalysis is recommended. The previously identified 9 mm obstructing proximal ureteral calculus has regressed back into the right renal pelvis. 2. Stable nonobstructing left inguinal hernia with loop of sigmoid colon. 3. Further nonacute chronic findings as described above. PROGNOSIS: good ACTIVITY: As tolerated. DIET: 2g sodium DISPOSITION: home DISCHARGE INSTRUCTIONS: 1. Follow-up with PCP within a week 2. Return to ER for emergency 3. Follow up with your renal transplant center within the week 4. Follow up with Nephrology within 1-2 weeks DISCHARGE CONDITION: Stable. TIME SPENT ON DISCHARGE: Greater than 35 minutes. Vital Signs/I&Os Vital Signs Date Time Temp Pulse Resp B/P (MAP) Pulse Ox O2 Delivery O2 Flow Rate FiO2 11/07/19 09:44 85 11/07/19 06:00 98.2 17 121/73 (89) 96 Room Air I&O- Last 24 Hours up to 6 AM 11/07/19 06:00 Intake Total 1590 ml Output Total 2700 ml Balance -1110 ml Laboratory Data Labs 24H Laboratory Tests 2 11/07/19 06:10: Nucleated Red Blood Cells % (auto) 0.0, Prothrombin Time 19.1H, Prothromb Time International Ratio 1.63, Anion Gap 6L, Glomerular Filtration Rate > 60.0, Calcium Level 9.4, Phosphorus Level 2.9, Magnesium Level 1.6L, Albumin 3.0L CBC/BMP Laboratory Tests 11/07/19 06:10 Microbiology Microbiology 11/04/19 Blood Culture - Preliminary, Resulted No Growth after 72 hours. All specime... 11/04/19 Urine Culture - Preliminary, Resulted Aeromonas Hydrophila/Caviae 11/04/19 Urine Culture - Preliminary, Resulted Aeromonas Hydrophila/Caviae 11/04/19 Blood Culture - Preliminary, Resulted No Growth after 72 hours. All specime... Discharge Medications Scheduled Amiloride HCl (Amiloride HCl) 5 Mg Tablet, 5 MG PO DAILY, (Reported) Aspirin (Aspir 81) 81 Mg Tab, 81 MG PO DAILY, (Reported) Azathioprine (Azathioprine) 50 Mg Tablet, 100 MG PO DAILY, (Reported) Calcitriol (Calcitriol) 0.25 Mcg Cap, 0.25 MCG PO 5XW, (Reported) MON-TUE Digoxin (Digoxin) 250 Mcg Tablet, 250 MCG PO DAILY, (Reported) Duloxetine Hcl (Cymbalta) 30 Mg Capsule.dr, 30 MG PO DAILY, (Reported) Gabapentin (Neurontin) 600 Mg Tablet, 600 MG PO TID, (Reported) Levofloxacin (Levaquin) 750 Mg Tablet, 750 MG PO DAILY@06 Magnesium Gluconate (Magnesium Gluconate) 27 Mg Tablet, 3,000 MG PO BID, (Reported) Prednisone (Prednisone) 5 Mg Tab, 5 MG PO DAILY, (Reported) Sennosides (Senna Lax) 8.6 Mg Tablet, 17.2 MG PO QHS, (Reported) Sirolimus (Sirolimus) 2 Mg Tablet, 2 MG PO DAILY, (Reported) Sod Phos Di, [place]/K Phos [place] (Virt-Phos 250 Neutral Tablet) 1 Tab Tab, 2 TAB PO TID, (Reported) Torsemide (Torsemide) 10 Mg Tablet, 10 MG PO DAILY, (Reported) Vitamin B Complex Vit C No.3 (B Complex with Vitamin C) 1 Cap Cap, 1 CAP PO DAILY, (Reported) Warfarin Sodium (Warfarin Sodium) 3 Mg Tablet, 3 MG PO QHS, (Reported) Scheduled PRN Acetaminophen (Acetaminophen) 325 Mg Tablet, 650 MG PO Q4H PRN for PAIN, (Reported) Bisacodyl (Bisacodyl) 10 Mg Supp.rect, 10 MG AL DAILY PRN for CONSTIPATION, (Reported) Cyclobenzaprine HCl (Cyclobenzaprine HCl) 10 Mg Tablet, 10 MG PO BID PRN for MUSCLE SPASMS, (Reported) Diazepam (Diazepam) 2 Mg Tablet, 2 MG PO TID PRN for ANXIETY, (Reported) Docusate Sodium (Docusate Sodium) 100 Mg Capsule, 100 MG PO DAILY PRN for CONSTIPATION, (Reported) Lidocaine (Lidoderm) 5% Adh..patch, 1 PATCH TOP DAILY PRN for PAIN, (Reported) APPLY TO AFFECTED SHOULDER. 12HR ON, 12HR OFF Melatonin (Melatonin) 10 Mg Capsule, 10 MG PO QHS PRN for SLEEP, (Reported) Ondansetron HCl (Zofran) 4 Mg Tablet, 4 MG PO TID PRN for NAUSEA OR VOMITING, (Reported) Oxycodone HCl/Acetaminophen (Oxycodone-Acetaminophen 5-325) 1 Each Tablet, 1 TAB PO Q6H PRN for PAIN, (Reported) Polyethylene Glycol 3350 (Miralax) 119 Gm Powder, 17 GRAM PO DAILY PRN for CONSTIPATION, (Reported) DISSOLVE IN WATER OR JUICE Allergies Coded Allergies: amoxicillin (Verified Adverse Reaction, Intermediate, can take few prior to dentist but can not take for 10 days, 12/20/18) pregabalin (Verified Adverse Reaction, Intermediate, UNKNOWN, 12/20/18) tizanidine (Verified Adverse Reaction, Intermediate, 12/20/18) cefuroxime (Verified Adverse Reaction, Mild, ANXIETY, 12/20/18) codeine (Verified Adverse Reaction, Mild, AGITATION, 12/20/18) lorazepam (Verified Adverse Reaction, Mild, AGITATION, 12/20/18) GME ATTESTATION GME ATTESTATION My faculty preceptor for this patient encounter was physically present during the encounter and was fully available. All aspects of the patient interview, examination, medical decision making process, and medical care plan development were reviewed and approved by the faculty preceptor. The faculty preceptor is aware and concurs with the plan as stated in the body of this note and will attest to such by his/her cosignature. ATTENDING NOTE I, Luz Lemons, have independently examined this patient and performed my own physical exam, as well as reviewed the documentation and edited where necessary. I have discussed in detail with the resident / student the findings and plan of treatment as documented by the resident / student and edited their note. I agree with their findings and treatment plan and have edited their documentation. I will continue to follow the patient during this hospital stay. Time spent on discharge 35 minutes LIBIA MANRIQUE DO Nov 07, 2019 12:18 LUZ LEMONS MD Nov 07, 2019 12:31
[2019-11-07 14:56] LABS: APPEARANCE, URINE HAZY (CLEAR); BACTERIA, URINE AUTO 1+ (NEGATIVE); BILIRUBIN, URINE AUTO NEGATIVE (NEGATIVE); BLOOD, URINE BLOOD 2+ (NEGATIVE); COLOR, URINE YELLOW (YELLOW); GLUCOSE, URINE (UA) AUTO NEGATIVE (NEGATIVE); KETONE, URINE AUTO NEGATIVE (NEGATIVE); LEUKOCYTE ESTERASE, URINE AUTO 3+ (NEGATIVE); MUCUS, URINE SMALL (NEGATIVE); NITRITE, URINE AUTO NEGATIVE (NEGATIVE); PROTEIN, URINE AUTO 1+ mg/dL (NEGATIVE); RBC, URINE AUTO TNTC /HPF (0-3); SPECIFIC GRAVITY URINE AUTO 1.009 (1.002-1.035); SQUAMOUS EPITHELIAL CELL UR AU 1 /HPF (0-6); UROBILINOGEN, URINE AUTO 0.2 mg/dL (0.0-2.0); WBC, URINE AUTO 12 /HPF (0-3)
--- NOTE | 2019-11-07 16:16 | IPNPDOC ---
Text Note Date of Service The patient was seen on 11/07/19. NOTE This note pertains to the nephrology service with Lucrecia Caballero MD super vising my work. Please see E attestation below. SUBJECTIVE: Patient was seen in the at bedside this morning. He remains afebrile and in no acute distress. Pt states that he still has mild generalized right-sided abdominal pain, but that this corresponds with him habitually laying on that side. That side is also where his nephrostomy tubing lies. OBJECTIVE: Vital Signs: See below. General: Pt appears stated age, is in no acute distress, and is seated in a chair. HEENT: Normocephalic, atraumatic. EOMI. Mucous membranes are moist. Neck is supple. Cardiovascular: Regular rate and rhythm. Normal S1 and S2. 2+ b/l ankle and 1+ b/l forearm swelling present. Respiratory: Lungs are clear to auscultation b/l. No wheezes, rales, or rhonchi. Abdomen: Soft. Right lower quadrant nephrostomy tube present with no tenderness at the site. Psychological: Pt is calm and cooperative. He answers questions appropriately. Insight is good. Intake and Output: Urine output recorded as 2.90L yesterday, 575 mL so far today. Lab values: BMP showed sodium 140, potassium 3.6, chloride 104, bicarb 30, BUN 15, and creatinine 0.73. ASSESSMENT/PLAN: 1. Acute pyelonephritis of the renal allograft - Urine culture final report lists growth of Aeromonas hydrophila/caviae and states that this species is typically sensitive to quinolones and resistant to ampicillin, cefazoil, cephalotin, cefoxitin, cefotetan and cefmetazole. - Pt has been on ceftriaxone with concurrent improvement in clinical status. Further discussion of pt's allergy list revealed that his documented adverse reaction to ciprofloxacin was confusion. Pt stated that he is willing to try levofloxacin per likely sensitivity of the pathogen above. This was discussed with Dr. Rowan from the hospitalist team. Pt received his first dose of levofloxacin in the hospital and will complete the 10-day course on an outpati ent basis. - Recommend continuing care from renal transplant center. We will also be happy to follow up with him in 2 weeks. 2. Renal allograft status - Continue current dose of azathioprine, prednisone, and sirolimus. Pt will follow with the renal transplant center. 3. Percutaneous nephrostomy status - Tubing was not changed during this admission per recommendation by interventional radiology. Pt will have it changed as scheduled as an outpatient. 4. Atrial fibrillation - Continue digoxin and continue to hold warfarin. This is being managed by the hospitalist team. 5. Lower extremity edema - Continue torsemide and amiloride. VS,Fishbone, I+O VS, Fishbone, I+O Laboratory Tests 11/07/19 06:10 Vital Signs Date Time Temp Pulse Resp B/P (MAP) Pulse Ox O2 Delivery O2 Flow Rate FiO2 11/07/19 13:46 20 11/07/19 09:44 85 11/07/19 06:00 98.2 121/73 (89) 96 Room Air I&O- Last 24 Hours up to 6 AM 11/07/19 06:00 Intake Total 1590 ml Output Total 2700 ml Balance -1110 ml GME ATTESTATION GME ATTESTATION My faculty preceptor for this patient encounter was physically present during the encounter and was fully available. All aspects of the patient interview, examination, medical decision making process, and medical care plan development were reviewed and approved by the faculty preceptor. The faculty preceptor is aware and concurs with the plan as stated in the body of this note and will attest to such by his/her cosignature. SHARRON SEVILLA OMS-III Nov 07, 2019 15:50
[2019-11-07] MEDS ORDERED: WARFARIN SOD 3 MG TAB PO SCH (17:00)
== END 2019-11-07 15:30 | disposition home or self-care (01) | DRG 698 ==
LOC: M ED 08:24 → M ED INP 11:51 → ENRESERVDT 12:49 → ENRESERVTM 12:49 → M MS5PR 13:45
PROVIDERS: ADMIT Internal Medicine; ATTEND Internal Medicine
DX: T86.13 Kidney transplant infection (principal); N18.6 End stage renal disease; N10 Acute pyelonephritis; I48.20 Chronic atrial fibrillation, unspecified; N25.81 Secondary hyperparathyroidism of renal origin; N20.0 Calculus of kidney; E83.42 Hypomagnesemia; M54.5 Low back pain; F41.9 Anxiety disorder, unspecified; F32.9 Major depressive disorder, single episode, unspecified; Z79.01 Long term (current) use of anticoagulants; R31.9 Hematuria, unspecified; Z79.82 Long term (current) use of aspirin; Z79.899 Other long term (current) drug therapy; Z88.0 Allergy status to penicillin; Z88.5 Allergy status to narcotic agent; Z88.8 Allergy status to other drugs, medicaments and biological substances; Z87.891 Personal history of nicotine dependence; M81.0 Age-related osteoporosis without current pathological fracture; Y83.0 Surgical operation with transplant of whole organ as the cause of abnormal reaction of the patient, or of later complication, without mention of misadventure at the time of the procedure

== ENCOUNTER → 2019-11-30 | Outpatient (REF) | payer MEDICARE ==
[~2019-11-30] MED LIST changes: +LEVA750T7 PO; +OXYC1TAB23 PO; +SIRO1TAB4 PO; +WARF-58 PO
[2019-11-30 13:48] LABS: INR 2.69; PROTHROMBIN TIME 28.5 SECONDS (11.8-14.0)
== END ==
LOC: M LAB REF 13:06
PROVIDERS: ATTEND Internal Medicine Nephrology
DX: Z79.01 Long term (current) use of anticoagulants (principal)

== ENCOUNTER 2019-12-06 13:55 | Outpatient (CLI) | payer MEDICARE ==
[~2019-12-06] VITALS: Ht 177.8 cm; Wt 71.3 kg
[2019-12-06] MEDS: MAGNESIUM SULFATE 1 GM/100 ML D5W BAG (10MG/ML) (J3475) IV SCH ×2 (14:25→15:27)
[2019-12-06 14:50] VITALS: BP 119/78
[2019-12-06 16:34] VITALS: BP 133/81
== END 2019-12-06 16:35 | disposition home or self-care (01) ==
LOC: M INFU 13:55
PROVIDERS: ATTEND Internal Medicine Nephrology
DX: E83.42 Hypomagnesemia (principal); Z88.1 Allergy status to other antibiotic agents; Z88.5 Allergy status to narcotic agent; Z88.8 Allergy status to other drugs, medicaments and biological substances
CPT/HCPCS: 96365; 96366; J3475

== ENCOUNTER 2019-12-10 11:52 | Emergency (ER) | payer MEDICARE ==
[~2019-12-10] VITALS: Ht 172.7 cm; Wt 69.7 kg
[~2019-12-10 11:52] MED LIST changes: -ISOVUE-300 61% 50ML VIAL (Q9967) As Ordered ONE; -LIDOCAINE 1% MDV 20ML VIAL As Ordered ONE; -MIDAZOLAM INJ 2 MG/2 ML VIAL (J2250) As Ordered ONE; -ceFAZolin 1GM INJ (J0690 PER 500MG) As Ordered ONE; -diphenhydrAMINE INJ 50MG/ML VIAL (J1200) As Ordered ONE; -fentaNYL 100 MCG/2 ML INJECTION (J3010) As Ordered ONE
[2019-12-10 13:09] LABS: BASO % 0.1 % (0.0-1.0); EOS % 0.6 % (0.0-3.0); HEMATOCRIT 41.7 % (42.0-52.0); HEMOGLOBIN 13.3 g/dl (13.5-17.5); LYMPH # 1.3 10^3/uL (1.5-5.0); LYMPH % 18.6 % (24.0-44.0); MEAN CORPUSCULAR HEMOGLOBIN 30.1 pg (27.0-33.0); MEAN CORPUSCULAR HGB CONC 31.9 g/dl (32.0-36.5); MEAN CORPUSCULAR VOLUME 94.3 fl (80.0-96.0); MONO # 0.7 10^3/uL (0.0-0.8); MONO % 9.6 % (0.0-5.0); NEUTROPHILS # 4.9 10^3/uL (1.5-8.5); NEUTROPHILS % 70.5 % (36.0-66.0); PLATELET COUNT, AUTOMATED 205 10^3/uL (150-450); RED BLOOD COUNT 4.42 10^6/uL (4.30-6.10)
[2019-12-10 13:41] LABS: ALBUMIN 3.5 GM/DL (3.2-5.2); ALT/SGPT 18 U/L (12-78); BILIRUBIN,DIRECT 0.2 MG/DL (0.0-0.2); BILIRUBIN,TOTAL 0.8 MG/DL (0.2-1.0); BLOOD UREA NITROGEN 12 MG/DL (7-18); CALCIUM LEVEL 10.6 MG/DL (8.8-10.2); CARBON DIOXIDE LEVEL 33 MEQ/L (21-32); CHLORIDE LEVEL 104 MEQ/L (98-107); CREATININE FOR GFR 0.77 MG/DL (0.70-1.30); GLOMERULAR FILTRATION RATE > 60.0 (>42); GLUCOSE, FASTING 115 MG/DL (70-100); LIPASE 31 U/L (73-393); POTASSIUM SERUM 4.4 MEQ/L (3.5-5.1); SODIUM LEVEL 139 MEQ/L (136-145); TOTAL PROTEIN 6.9 GM/DL (6.4-8.2)
[2019-12-10 14:11] LABS: PROTHROMBIN TIME 22.5 SECONDS (11.8-14.0)
[2019-12-10 14:12] LABS: PARTIAL THROMBOPLASTIN TIME 38.5 SECONDS (25.0-38.4)
[2019-12-10 14:35] VITALS: BP 142/69
== END 2019-12-10 14:36 | disposition home or self-care (01) ==
LOC: M ED 11:52
DX: R31.9 Hematuria, unspecified (principal); T83.192A Other mechanical complication of indwelling ureteral stent, initial encounter; T81.9XXA Unspecified complication of procedure, initial encounter; I48.91 Unspecified atrial fibrillation; N18.6 End stage renal disease; I11.9 Hypertensive heart disease without heart failure; E78.5 Hyperlipidemia, unspecified; G89.29 Other chronic pain; M54.5 Low back pain; F41.9 Anxiety disorder, unspecified; Z88.1 Allergy status to other antibiotic agents; Z88.5 Allergy status to narcotic agent; Z79.01 Long term (current) use of anticoagulants; Z79.82 Long term (current) use of aspirin; Z79.899 Other long term (current) drug therapy

== ENCOUNTER → 2019-12-10 | Outpatient (CLI) | payer MEDICARE ==
[~2019-12-10] MED LIST changes: +ISOVUE-300 61% 50ML VIAL (Q9967) As Ordered ONE; +LIDOCAINE 1% MDV 20ML VIAL As Ordered ONE; +MIDAZOLAM INJ 2 MG/2 ML VIAL (J2250) As Ordered ONE; +ceFAZolin 1GM INJ (J0690 PER 500MG) As Ordered ONE; +diphenhydrAMINE INJ 50MG/ML VIAL (J1200) As Ordered ONE; +fentaNYL 100 MCG/2 ML INJECTION (J3010) As Ordered ONE
--- NOTE | 2019-12-10 15:49 | IRMSE ---
[facility] IR Moderate Sedation Eval. Date and Time Date: Dec 10, 2019 Time: 15:49 ASA Classification ASA Classification: III-Severe systemic dis. Mallampati Score: II NPO: Yes Obstructive Sleep Apnea: No Interval Plan: moderate sedation ERICH TATUM MD Dec 10, 2019 15:49
--- NOTE | 2019-12-10 16:46 | POST-OPPD ---
Postoperative Procedure Note Date Of Procedure: Dec 10, 2019 Time Of Procedure: 16:43 PREOPERATIVE DIAGNOSIS: right ureteral obstruction. transplant kidney. right NEphU hurts. can't tolerate stent without bag. hematuria. POSTOPERATIVE DIAGNOSIS: same FINDINGS: right transplant neph U. PROCEDURE: neph U removed over wire. nephrostomy placed over the wire. routine exchange every 12 weeks. SURGEON: mihaela ANESTHESIA: mod sed ESTIMATED BLOOD LOSS: < 5 ml COMPLICATIONS: none POSTOPERATIVE CONDITION: stable ERICH TATUM MD Dec 10, 2019 16:46
[2019-12-10 18:29] VITALS: BP 177/90
--- NOTE | 2019-12-11 12:06 | REP ---
IR Nephrostomy catheter exchange. IR Nephroureteral catheter to nephrostomy conversion. IR Nephrostogram and ureterogram. Clinical information: Right lower quadrant transplant kidney. Ureteral obstruction. Hydronephrosis. The patient had a nephroureteral catheter placed at [facility] however, complains of pain and bleeding. Unable to cap catheter for internal drainage due to difficulties with urination and therefore always has bag attached to the catheter. Physician: Dr. Quach. Procedure: The patient was advised of the benefits, risks and alternatives of the procedure and informed consent was obtained. The time-out was performed with verification of the patient's name, MRN, site of procedure and type of procedure to be performed. The patient was positioned in the supine position on the angiographic table. The site was prepped and draped in the usual sterile fashion. Moderate sedation was performed by the physician including the presence of an independent trained observer who assisted in monitoring the patient's level of consciousness and physiologic status. Following the administration of Versed and Fentanyl, the physician spent 45 minutes of continuous face to face time with the patient. 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 The distal pigtail is not formed. An initial nephrostogram and ureterogram was performed through the preexisting catheter confirming patency. There is moderate hydronephrosis. The catheter terminates proximal to the bladder; at the ureterovesicular junction. The pigtail is not formed. Lidocaine was injected around the catheter exit site. The catheter and sutures were cut, an Amplatz wire was passed into the renal collecting system. The preexisting nephroureteral catheter was removed over the wire. A new 10 -[place] nephrostomy catheter was advanced into the renal collecting system and formed. A final nephrostogram and ureterogram was performed confirming position of the pigtail in the renal pelvis with hydronephrosis. The catheter was secured in position with 2-0 Prolene and a sterile dressing was applied. The catheter was placed gravity drainage. The patient tolerated the procedure well and was returned to the P R U in stable condition. EBL: Less than 5 ml. Complications: None. Conclusion: 1. Nephrostogram and ureterogram demonstrate hydronephrosis. The existing nephroureteral catheter distal pigtail is unformed and terminates proximal to the ureterovesicular junction. 2. Failed stent due to pain and hematuria. Nephroureteral catheter converted to nephrostomy. Successful right nephrostomy catheter exchange. Patient to return in 12 weeks for routine catheter exchange. Thank you this referral. Electronically Signed by Rafia Quach MD 12/11/2019 12:05 P
== END ==
LOC: M IRPRO 14:52
PROVIDERS: ATTEND Radiology Diagnostic Radiology
DX: N13.0 Hydronephrosis with ureteropelvic junction obstruction (principal)
CPT/HCPCS: 50435; 99152; 99153; C1729; C1769; J0690; J1200; J1644; J2250; J3010; Q9967

== ENCOUNTER → 2019-12-28 | Outpatient (REF) | payer MEDICARE ==
[2019-12-28 14:11] LABS: INR 2.83; PROTHROMBIN TIME 29.7 SECONDS (11.8-14.0)
== END ==
LOC: M LAB REF 13:09
PROVIDERS: ATTEND Internal Medicine Nephrology
DX: Z79.01 Long term (current) use of anticoagulants (principal); Z48.22 Encounter for aftercare following kidney transplant; I48.20 Chronic atrial fibrillation, unspecified; N39.0 Urinary tract infection, site not specified

== ENCOUNTER → 2020-01-02 | Outpatient (REF) | payer MEDICARE | LOC: M LAB REF 09:40 | PROVIDERS: ATTEND Dermatology | DX: L90.5 Scar conditions and fibrosis of skin (principal) ==

== ENCOUNTER → 2020-01-09 | Outpatient (REF) | payer MEDICARE ==
[~2020-01-09] MED LIST changes: +CYCL-707 PO; -CYCL10TA PO
[2020-01-09 14:05] LABS: INR 1.81; PROTHROMBIN TIME 20.7 SECONDS (11.8-14.0)
== END ==
LOC: M LAB REF 13:03
PROVIDERS: ATTEND Internal Medicine Nephrology
DX: Z79.01 Long term (current) use of anticoagulants (principal)

== ENCOUNTER 2020-01-14 15:24 | Inpatient (IN) | payer MEDICARE ==
[~2020-01-14] VITALS: Ht 177.8 cm; Wt 69.0 kg
[2020-01-14] MEDS ORDERED: CEFEPIME HCL 2 GM in D5W MINI-BAG PLUS 50 ML IV ONE (16:00)
[2020-01-14] MEDS ORDERED: NS 2,100 ML in IV 1 EA IV ONE (16:00)
[2020-01-14] MEDS ORDERED: ACETAMINOPHEN TAB 650MG DOSE (2X325MG) PO ONE (16:00)
[2020-01-14 16:10] LABS: VENOUS BASE EXCESS -0.8 (-2.0-2.0); VENOUS HCO3 26.4 MEQ/L (23.0-27.0); VENOUS O2 SATURATION 57.9 % (60.0-80.0); VENOUS PARTIAL PRESSURE O2 33.8 mmHg (30.0-50.0); VENOUS PH 7.299 UNITS (7.330-7.430); VENOUS STANDARD HCO3 23.1 MEQ/L; VENOUS TOTAL CO2 28.1 MEQ/L (24.0-28.0)
[2020-01-14] MEDS: MORPHINE 2 MG/ML 1ML VIAL (J2270) IV PRN ×2 (16:11→16:59)
[2020-01-14 16:14] LABS: BASO % 0.1 % (0.0-1.0); HEMATOCRIT 35.2 % (42.0-52.0); HEMOGLOBIN 11.2 g/dl (13.5-17.5); LYMPH # 1.4 10^3/uL (1.5-5.0); LYMPH % 9.3 % (24.0-44.0); MEAN CORPUSCULAR HEMOGLOBIN 29.5 pg (27.0-33.0); MEAN CORPUSCULAR HGB CONC 31.8 g/dl (32.0-36.5); MEAN CORPUSCULAR VOLUME 92.6 fl (80.0-96.0); MONO # 1.5 10^3/uL (0.0-0.8); MONO % 10.2 % (0.0-5.0); NEUTROPHILS # 11.9 10^3/uL (1.5-8.5); NEUTROPHILS % 79.9 % (36.0-66.0); PLATELET COUNT, AUTOMATED 247 10^3/uL (150-450); WHITE BLOOD COUNT 14.9 10^3/uL (4.0-10.0)
[2020-01-14] MEDS ORDERED: RAPA1TAB PO (16:18)
[2020-01-14 16:29] LABS: INR 1.73
[2020-01-14 16:30] LABS: PARTIAL THROMBOPLASTIN TIME 50.4 SECONDS (25.0-38.4)
[2020-01-14] MEDS ORDERED: HYDR-3363 PO (16:30)
[2020-01-14] MEDS ORDERED: GABA-843 PO (16:30)
[2020-01-14] MEDS ORDERED: ICYCRE TOP (16:30)
[2020-01-14] MEDS ORDERED: DIGO0.123 PO (16:30)
[2020-01-14 16:59] LABS: APPEARANCE, URINE CLOUDY (CLEAR); BACTERIA, URINE AUTO 1+ (NEGATIVE); BILIRUBIN, URINE AUTO NEGATIVE (NEGATIVE); BLOOD, URINE BLOOD 1+ (NEGATIVE); COLOR, URINE AMBER (YELLOW); GLUCOSE, URINE (UA) AUTO NEGATIVE (NEGATIVE); KETONE, URINE AUTO NEGATIVE (NEGATIVE); LEUKOCYTE ESTERASE, URINE AUTO 3+ (NEGATIVE); MUCUS, URINE SMALL (NEGATIVE); NITRITE, URINE AUTO NEGATIVE (NEGATIVE); PROTEIN, URINE AUTO NEGATIVE (NEGATIVE); RBC, URINE AUTO 30 /HPF (0-3); SPECIFIC GRAVITY URINE AUTO 1.014 (1.002-1.035); SQUAMOUS EPITHELIAL CELL UR AU 0 /HPF (0-6); WBC, URINE AUTO TNTC /HPF (0-3)
[2020-01-14 17:03] LABS: ALBUMIN 3.4 GM/DL (3.2-5.2); ALT/SGPT 14 U/L (12-78); AMYLASE 21 U/L (25-115); BILIRUBIN,DIRECT 0.3 MG/DL (0.0-0.2); BILIRUBIN,TOTAL 1.1 MG/DL (0.2-1.0); BLOOD UREA NITROGEN 15 MG/DL (7-18); CALCIUM LEVEL 9.5 MG/DL (8.8-10.2); CARBON DIOXIDE LEVEL 30 MEQ/L (21-32); CHLORIDE LEVEL 98 MEQ/L (98-107); CK-MB VALUE MASS 1.2 NG/ML (<3.6); CPK CREATINE PHOSPHOKINASE 83 U/L (39-308); CREATININE FOR GFR 1.04 MG/DL (0.70-1.30); DIGOXIN LEVEL 0.9 NG/ML (0.5-2.0); GLOMERULAR FILTRATION RATE > 60.0 (>42); GLUCOSE, FASTING 162 MG/DL (70-100); MB/CK RELATIVE INDEX 1.45 (< OR =4); SODIUM LEVEL 133 MEQ/L (136-145); TOTAL PROTEIN 6.8 GM/DL (6.4-8.2); TROPONIN I < 0.02 NG/ML (< 0.10)
[2020-01-14] MEDS ORDERED: diazePAM 2 MG TAB PO PRN (17:30)
[2020-01-14] MEDS ORDERED: ACETAMINOPHEN TAB 650MG DOSE (2X325MG) PO PRN (17:30)
[2020-01-14] MEDS ORDERED: MIRALAX *UNIT DOSE* 17GM PACKET PO PRN (17:30)
[2020-01-14 18:33] VITALS: BP 97/75
[2020-01-14 19:07] VITALS: BP 102/58
--- NOTE | 2020-01-14 19:08 | HPEPDOC ---
[facility] Medical History & Physical Date of Admission Jan 14, 2020 Date of Service: Jan 14, 2020 Attending Physician: BLESSING DIEZ MD History and Physical CHIEF COMPLAINT: Sent by Engine Buildup Mechanic for urinary infection HISTORY OF PRESENT ILLNESS: 74-year-old male with past medical history of end-stage renal disease, was temporarily on dialysis, status post renal transplant in 2006, atrial fibrillation (on Coumadin), hypertension, compression fracture, status post multiple back surgeries, presents from Engine Buildup Mechanic office for UTI. Patient has a nephrostomy tube placed in the transplanted kidney due to an obstructive calculi. He was admitted in October, for the same reason and has been feeling well since discharge. He reports experiencing lower abdominal pain, radiating towards his back & legs along with nausea & fever for the past 3-4 days. He went to his Engine Buildup Mechanic's office & UA was concerning for UTI. He reports decreased urine output via Nephrostomy for the past few days along with urination; he normally urinates <50 ml/day. He has no other complaints at this time. He denies any SOB, CP, headache or diarrhea. 10 point review of system is negative except for above PAST MEDICAL HISTORY: 1. End-stage renal disease. 2. Hypertension. 3. Atrial fibrillation. 4. Compression fracture. 5. Hypomagnesemia PAST SURGICAL HISTORY: 1. AV fistula. 2. Renal transplant. 3. Multiple back surgeries. SOCIAL HISTORY: Previous smoker, quit over 30 years ago. Denies alcohol use. Denies drug use FAMILY HISTORY: Father had heart disease ALLERGIES: Please see below. HOME MEDICATIONS: Please see below. PHYSICAL EXAMINATION: VITAL SIGNS: Please see below. GENERAL: Mild distress HEENT: Normocephalic, atraumatic, moist mucous membranes NECK: Supple CARDIOVASCULAR EXAMINATION: S1, S2, systolic murmur appreciated RESPIRATORY EXAMINATION: Clear to auscultation, no wheezing ABDOMINAL EXAMINATION: Soft, RLQ nephrostomy with moderate tenderness to palpation over transplanted kidney, nondistended, positive bowel sounds EXTREMITIES: Range of motion intact SKIN: No rash NEUROLOGICAL EXAMINATION: Alert and oriented 3, no focal deficits PSYCHIATRIC EXAMINATION: Calm and cooperative LABORATORY DATA: See below. IMAGING: CXR without acute pathology MICROBIOLOGY: Please see below. ASSESSMENT: 74-year-old male with history of end-stage renal disease, status post renal transplant being admitted for Pyelonephritis. PLAN: 1. Pyelonephritis. History of renal transplant, status post nephrostomy tube due to obstructing calculi, urine and blood cultures pending, admitted 2 months ago for Pyelonephritis, Vancomycin based on cultures at that time along with ceftriaxone. s/p IV fluids in the ED. 2. End-stage renal disease. Was on hemodialysis, status post renal transplant in 2006, creatinine at baseline, will hold torsemide for now, continue amiloride, azathioprine, sir olimus and prednisone 5 mg daily 3. Atrial fibrillation. Continue Coumadin, INR sub-therapeutic, digoxin for rate control. 4. Hypomagnesemia. Continue oral magnesium supplementation. DVT prophylaxis on Coumadin. GI prophylaxis: Not needed Vital Signs Vital Signs Date Time Temp Pulse Resp B/P (MAP) Pulse Ox O2 Delivery O2 Flow Rate FiO2 01/14/20 18:33 100.4 83 97/75 (82) 96 01/14/20 17:59 18 01/14/20 16:59 Room Air Laboratory Data Labs 24H Laboratory Tests 2 01/14/20 15:58: Immature Granulocyte % (Auto) 0.5, Neutrophils (%) (Auto) 79.9H, Lymphocytes (%) (Auto) 9.3L, Monocytes (%) (Auto) 10.2H, Eosinophils (%) (Auto) 0.0, Basophils (%) (Auto) 0.1, Neutrophils # (Auto) 11.9H, Lymphocytes # (Auto) 1.4L, Monocytes # (Auto) 1.5H, Eosinophils # (Auto) 0.0, Basophils # (Auto) 0.0, Nucleated Red Blood Cells % (auto) 0.0, Prothrombin Time 20.0H, Prothromb Time International Ratio 1.73, Activated Partial Thromboplast Time 50.4H, Blood Gas Bicarbonate Standard 23.1, Venous Blood pH 7.299L, Venous Blood Partial Pressure CO2 55.0H, Venous Blood Partial Pressure O2 33.8, Venous Blood Total Carbon Dioxide 28.1H, Venous Blood HCO3 26.4, Venous Blood Oxygen Saturation 57.9L, Venous Blood Base Excess -0.8, Anion Gap 5L, Glomerular Filtration Rate > 60.0, Lactic Acid Level 3.0*H, Calcium Level 9.5, Total Bilirubin 1.1H, Direct Bilirubin 0.3H, Aspartate Amino Transf (AST/SGOT) 19, Alanine Aminotransferase (ALT/SGPT) 14, Alkaline Phosphatase 91, Total Creatine Kinase 83, Creatine Kinase MB 1.2, Creatine Kinase MB Relative Index 1.45, Troponin I < 0.02, C-Reactive Protein, Quantitative 14.40H, Total Protein 6.8, Albumin 3.4, Albumin/Globulin Ratio 1.00, Amylase Level 21L, Digoxin Level 0.9 01/14/20 16:35: Urine Color SANDEEP, Urine Appearance CLOUDYH, Urine pH 6.0, Urine Specific [place] 1.014, Urine Protein NEGATIVE, Urine Glucose (Auto)(UA) NEGATIVE, Urine Ketones (Auto) NEGATIVE, Urine Blood 1+H, Urine Nitrite NEGATIVE, Urine Bilirubi n NEGATIVE, Urine Urobilinogen 2.0H, Urine Leukocyte Esterase (Auto) 3+H, Urine WBC (Auto) TNTCH, Urine RBC (Auto) 30H, Urine Hyaline Casts (Auto) 0, Urine Bacteria (Auto) 1+H, Urine Squamous Epithelial Cells 0, Urine Mucus (Auto) SMALL, Urine Sperm (Auto) CBC/BMP Laboratory Tests 01/14/20 15:58 Microbiology Microbiology 01/14/20 Blood Culture, Received Pending 01/14/20 Urine Culture, Received Pending 01/14/20 Blood Culture, Received Pending Home Medications Scheduled Amiloride HCl (Amiloride HCl) 5 Mg Tablet, 5 MG PO DAILY Aspirin (Aspir 81) 81 Mg Tab, 81 MG PO DAILY Azathioprine (Azathioprine) 50 Mg Tablet, 100 MG PO DAILY Calcitriol (Calcitriol) 0.25 Mcg Cap, 0.25 MCG PO 5XW MON-FRI Digoxin (Digoxin) 125 Mcg Tablet, 125 MCG PO DAILY Docusate Sodium (Docusate Sodium) 100 Mg Capsule, 100 MG PO QHS Duloxetine Hcl (Cymbalta) 30 Mg Capsule.dr, 30 MG PO DAILY Gabapentin (Gabapentin) 300 Mg Capsule, 600 MG PO TID Magnesium Gluconate (Magnesium Gluconate) 27 Mg Tablet, 6 TABS PO BID Melatonin (Melatonin) 10 Mg Capsule, 10 MG PO QHS Oxycodone HCl/Acetaminophen (Oxycodone-Acetaminophen 5-325) 1 Each Tablet, 1 TAB PO Q6H Polyethylene Glycol 3350 (Miralax) 119 Gm Powder, 17 GRAM PO QHS DISSOLVE IN WATER OR JUICE Prednisone (Prednisone) 5 Mg Tab, 5 MG PO DAILY Sennosides (Senna Lax) 8.6 Mg Tablet, 17.2 MG PO QHS Sirolimus (Rapamune) 1 Mg Tablet, 2 MG PO DAILY Sod Phos Di, Ceiba/K Phos Ceiba (Virt-Phos 250 Neutral Tablet) 1 Tab Tab, 2 TAB PO BID Vitamin B Complex Vit C No.3 (B Complex with Vitamin C) 1 Cap Cap, 1 CAP PO DAILY Warfarin Sodium (Warfarin Sodium) 3 Mg Tablet, 3 MG PO QHS Scheduled PRN Acetaminophen (Acetaminophen) 325 Mg Tablet, 650 MG PO Q4H PRN for PAIN Cyclobenzaprine HCl (Cyclobenzaprine HCl) 10 Mg Tablet, 10 MG PO BID PRN for MUSCLE SPASMS Diazepam (Diazepam) 2 Mg Tablet, 2 MG PO TID PRN for ANXIETY Hydroxyzine HCl (Hydroxyzine HCl) 25 Mg Tablet, 50 MG PO QHS PRN for INSOMNIA Lidocaine (Lidoderm) 5% Adh..patch, 1 PATCH TOP DAILY PRN for PAIN APPLY TO BACK 12HR ON, 12HR OFF Methyl Salicylate/Menthol (Icy Hot Cream) 35.4 Gm Cream..g., 1 APLCT TOP DAILY PRN for BACK PAIN Ondansetron HCl (Zofran) 4 Mg Tablet, 4 MG PO TID PRN for NAUSEA OR VOMITING Allergies Coded Allergies: cefuroxime (Verified Adverse Reaction, Mild, ANXIETY, 12/20/18) codeine (Verified Adverse Reaction, Mild, AGITATION, 12/20/18) doxycycline (Verified Adverse Reaction, Mild, UPSET STOMACH, 01/14/20) lorazepam (Verified Adverse Reaction, Mild, AGITATION, 12/20/18) pregabalin (Verified Adverse Reaction, Mild, ANXIETY, DROWSINESS, 01/14/20) amoxicillin (Verified Adverse Reaction, Unknown, can take few prior to dentist but can not take for 10 days, 01/14/20) tizanidine (Verified Adverse Reaction, Unknown, 01/14/20) A-FIB/CHADSVASC A-FIB History Current/History of A-Fib/PAF?: Yes Current PO Anticoag Therapy: Yes BLESSING DIEZ MD Jan 14, 2020 19:08
--- NOTE | 2020-01-14 19:11 | ECGEPIP ---
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
[2020-01-14] MEDS: PERCOCET 5MG/325MG TAB PO SCH ×2 (19:30→23:36)
[2020-01-14] MEDS: NS 1,000 ML IV SCH ×2 (19:34→20:45)
[2020-01-14] MEDS ORDERED: VANCOMYCIN HCL 1,000 MG, VIAL MATE ADAPTER 1 EACH in D5W 250 ML IV ONE (20:00)
[2020-01-14] MEDS: MAGNESIUM GLUCONATE 500 MG TAB PO SCH (20:43)
[2020-01-14] MEDS: SENNA 8.6 MG TAB (SENOKOT) PO SCH (20:43)
[2020-01-14] MEDS: hydrOXYzine 25 MG TAB PO PRN (20:43)
[2020-01-14] MEDS: WARFARIN SOD 3 MG TAB PO SCH (20:43)
[2020-01-14] MEDS: GABAPENTIN 300 MG CAP PO SCH (20:44)
[2020-01-14] MEDS: K-PHOS NEUTRAL 250MG TABLET (SOD.PHOSPHATE/POT.PHOSPHATE) PO SCH (20:44)
[2020-01-14] MEDS: DOCUSATE SODIUM 100 MG CAP PO SCH (20:44)
[2020-01-14] MEDS: **NOTE PATIENT COMMENT** MISC XX SCH (21:00)
[2020-01-14 22:00] VITALS: BP 113/66
[2020-01-14] MEDS: CYCLOBENZAPRINE 10MG TABLET PO PRN (22:09)
--- NOTE | 2020-01-14 23:33 | REP ---
REASON: Sepsis. COMPARISON: 11/04/2019, the latest prior. The technique utilized in obtaining the radiograph has magnified the cardiac silhouette and accentuated the interstitial markings. There is cardiomegaly accentuated by technique. Mild interstitial fibrotic changes are noted, status quo. No acute patchy parenchymal opacities or pleural effusions have developed. Chronic changes are seen involving the imaged spine. IMPRESSION: Stable appearing chronic changes without plain radiographic evidence of acute cardiopulmonary disease. Electronically Signed by Clint Bhatt DO 01/15/2020 08:30 A
[2020-01-15] MEDS: PERCOCET 5MG/325MG TAB PO SCH ×4 (05:50→23:28)
[2020-01-15 06:00] VITALS: BP 120/76
[2020-01-15 07:19] LABS: ALBUMIN 2.6 GM/DL (3.2-5.2); ALT/SGPT 14 U/L (12-78); BILIRUBIN,TOTAL 0.8 MG/DL (0.2-1.0); BLOOD UREA NITROGEN 13 MG/DL (7-18); CARBON DIOXIDE LEVEL 20 MEQ/L (21-32); CHLORIDE LEVEL 109 MEQ/L (98-107); CREATININE FOR GFR 0.85 MG/DL (0.70-1.30); GLOMERULAR FILTRATION RATE > 60.0 (>42); GLUCOSE, FASTING 114 MG/DL (70-100); MAGNESIUM LEVEL 1.3 MG/DL (1.8-2.4); POTASSIUM SERUM 4.2 MEQ/L (3.5-5.1); SODIUM LEVEL 138 MEQ/L (136-145)
[2020-01-15 08:49] LABS: HEMOGLOBIN 9.7 g/dl (13.5-17.5); MEAN CORPUSCULAR HEMOGLOBIN 29.4 pg (27.0-33.0); MEAN CORPUSCULAR HGB CONC 32.3 g/dl (32.0-36.5); MEAN CORPUSCULAR VOLUME 90.9 fl (80.0-96.0); PLATELET COUNT, AUTOMATED 169 10^3/uL (150-450); WHITE BLOOD COUNT 11.3 10^3/uL (4.0-10.0)
[2020-01-15] MEDS: ONDANSETRON 4 MG TAB PO PRN ×2 (08:58→16:29)
[2020-01-15] MEDS ORDERED: cefTRIAXone SOD 1 GM in D5W MINI-BAG PLUS 50 ML IV SCH (09:00)
[2020-01-15] MEDS ORDERED: ENTER DRUG NAME HERE (PATIENT'S OWN MED) PO SCH (09:00)
[2020-01-15] MEDS ORDERED: azaTHIOprine 50 MG TAB (J7500) PO SCH (09:00)
[2020-01-15] MEDS ORDERED: aMILoride 5 MG TAB PO SCH (09:00)
[2020-01-15 09:06] LABS: INR 2.21; PROTHROMBIN TIME 24.3 SECONDS (11.8-14.0)
[2020-01-15] MEDS ORDERED: PERCOCET 5MG/325MG TAB PO PRN (10:15)
[2020-01-15] MEDS ORDERED: PILL CUTTER 1 EACH XX PRN (10:30)
[2020-01-15] MEDS: VANCOMYCIN HCL 1,000 MG, VIAL MATE ADAPTER 1 EACH in D5W 250 ML IV SCH (10:31)
[2020-01-15] MEDS: CALCITRIOL 0.25 MCG CAP (S0169) PO SCH (10:53)
[2020-01-15] MEDS: MAGNESIUM GLUCONATE 500 MG TAB PO SCH ×2 (10:54→21:29)
[2020-01-15] MEDS: predniSONE 5 MG TAB PO SCH (10:54)
[2020-01-15] MEDS: GABAPENTIN 300 MG CAP PO SCH ×3 (10:54→21:29)
[2020-01-15] MEDS: ASPIRIN 81 MG ENTERIC TAB PO SCH (10:55)
[2020-01-15] MEDS: VITAMIN B COMPLEX/VIT C CAP PO SCH (10:57)
[2020-01-15] MEDS: DIGOXIN 0.125 MG TAB PO SCH (10:57)
[2020-01-15] MEDS: K-PHOS NEUTRAL 250MG TABLET (SOD.PHOSPHATE/POT.PHOSPHATE) PO SCH ×2 (10:57→21:29)
[2020-01-15] MEDS: DULoxetine 30 MG CAP (CYMBALTA) PO SCH (10:57)
--- NOTE | 2020-01-15 13:32 | IPNPDOC ---
Subjective Date Seen The patient was seen on 01/15/20. Subjective Chief Complaint/HPI Patient seen and examined at bedside this morning. Patient was in good spirits although complained of having intermittent fevers and chills. He states that he has not been feeling well and is likely due to urinary infection that he has. He also states that his catheter is leaking at times and it was last changed several weeks ago. Otherwise, patient denies any chest pain, shortness of breath, nausea, vomiting, headaches. He has no other complaints at this time. General: Reports: Chills, Fatigue Constitutional: Reports: Fever, Weakness Eyes: Denies: Pain, Vision change ENT: Denies: Head Aches, Ear Pain, Dysphagia Skin: Denies: Rash, Lesions, Jaundice, Bruising Pulmonary: Denies: Dyspnea, Cough Cardiovascular: Denies: Chest Pain, Palpitations, Orthopnea, Edema Gastrointestinal: Reports: Abdominal Pain; Denies: Nausea, Vomiting Genitourinary: Reports: Incontinence, Other Symptoms (leaking of nephrostomy tube and foul-smelling urine) Musculoskeletal: Reports: Neck Pain, Back Pain Neurological: Denies: Change in speech, Confusion, Seizures Psych: Reports: Mood Normal Objective Physical Examination General Exam: Positive: Alert, Cooperative, No Acute Distress, Other (wearing neck brace) Eye Exam: Positive: PERRLA, Conjunctiva & lids normal, EOMI ENT Exam: Positive: Atraumatic, Mucous membr. moist/pink, Pharynx Normal Chest Exam: Positive: Other (mild crackles at lung base with decreased air entry and movement); Negative: Rales, Rhonchi, Wheezing Heart Exam: Positive: Rate Normal, Regular Rhythm, Normal S1, Normal S2, Murmu rs (faint systolic murmur appreciated); Negative: Tachycardic Abdomen Exam: Positive: Normal bowel sounds, Soft, Other (right-sided nephrostomy tube noted. Dressing up round and appears to be slightly moist. Urine is dark in color but appears mainly clear in nephrostomy bag); Negative: Tenderness, Hepatospenomegaly Extremity Exam: Negative: Clubbing, Cyanosis, Edema Skin Exam: Positive: Nl turgor and temperature; Negative: Rash, Breakdown Neuro Exam: Positive: Normal Tone, Sensation Intact, Cranial Nerves 3-12 NL Psych Exam: Positive: Mental status NL Assessment /Plan Assessment 75-year-old male status post renal transplant in 2006, A. fib, chronic back pain, presents from regulation supervisor office for likely UTI. Patient has a nephrostomy tube due to obstructive calculi and has been getting UTIs ever since. Urine [place] consistent with infection with ID and sensitivity still pending. Blood cultures are now showing gram-negative bacteremia which is likely seeded from this urine infection. Currently remains hemodynamic stable. We'll need to continue IV antibiotics for now as well as fluids when necessary. Plan/VTE VTE Prophylaxis Ordered?: Yes Plan IVF: Initiate Activity: Continue Current Therapy: PT, OT Medications: Replete Electrolytes PO, Increase Pain Meds 1. Complicated pyelonephritis, nephrostomy tube placement, gram-negative bacteremia Patient has history of UTI secondary to infected nephrostomy tubes in the past. P is to have gram-negative bacteremia which is likely seeded from urinary source. We'll continue with broad-spectrum antibiotics with vancomycin and ceftriaxone for now. - Follow up blood cultures - follow up urine culture - Continue with ceftriaxone and vancomycin - Continue with IV fluids as needed 2. History of renal transplant, on immunosuppression No signs of acute rejection currently. Creatinine appears to be slightly above baseline around baseline. - We'll continue with amiloride, azathioprine, sirolimus, prednisone as per home dose 3. Chronic atrial fibrillation On Coumadin at home. INR now therapeutic today. - Continue with current dose warfarin as well as digoxin for rate control. 4. Hypomagnesemia - Replete as needed via oral supplementation 5. Chronic back pain We'll continue his home regimen and dosage pain medications when necessary - Percocet 1.5 tablets every 6 hours when necessary VS, I&O, 24H, Fishbone Vital Signs/I&O Vital Signs Date Time Temp Pulse Resp B/P (MAP) Pulse Ox O2 Delivery O2 Flow Rate FiO2 01/15/20 11:23 18 01/15/20 10:57 98 01/15/20 06:00 99.1 120/76 (91) 92 Room Air I&O- Last 24 Hours up to 6 AM 01/15/20 05:59 Intake Total 1570 ml Output Total 675 ml Balance 895 ml Laboratory Data 24H LABS Laboratory Tests 2 01/14/20 15:58: Immature Granulocyte % (Auto) 0.5, Neutrophils (%) (Auto) 79.9H, Lymphocytes (%) (Auto) 9.3L, Monocytes (%) (Auto) 10.2H, Eosinophils (%) (Auto) 0.0, Basophils (%) (Auto) 0.1, Neutrophils # (Auto) 11.9H, Lymphocytes # (Auto) 1.4L, Monocytes # (Auto) 1.5H, Eosinophils # (Auto) 0.0, Basophils # (Auto) 0.0, Nucleated Red Blood Cells % (auto) 0.0, Prothrombin Time 20.0H, Prothromb Time International Ratio 1.73, Activated Partial Thromboplast Time 50.4H, Blood Gas Bicarbonate Standard 23.1, Venous Blood pH 7.299L, Venous Blood Partial Pressure CO2 55.0H, Venous Blood Partial Pressure O2 33.8, Venous Blood Total Carbon Dioxide 28.1H, Venous Blood HCO3 26.4, Venous Blood Oxygen Saturation 57.9L, Venous Blood Base Excess -0.8, Anion Gap 5L, Glomerular Filtration Rate > 60.0, Lactic Acid Level 3.0*H, Calcium Level 9.5, Total Bilirubin 1.1H, Direct Bilirubin 0.3H, Aspartate Amino Transf (AST/SGOT) 19, Alanine Aminotransferase (ALT/SGPT) 14, Alkaline Phosphatase 91, Total Creatine Kinase 83, Creatine Kinase MB 1.2, Creatine Kinase MB Relative Index 1.45, Troponin I < 0.02, C-Reactive Protein, Quantitative 14.40H, Total Protein 6.8, Albumin 3.4, Albumin/Globulin Ratio 1.00, Amylase Level 21L, Digoxin Level 0.9 01/14/20 16:35: Urine Color SANDEEP, Urine Appearance CLOUDYH, Urine pH 6.0, Urine Specific [place] 1.014, Urine Protein NEGATIVE, Urine Glucose (Auto)(UA) NEGATIVE, Urine Ketones (Auto) NEGATIVE, Urine Blood 1+H, Urine Nitrite NEGATIVE, Urine Bilirubin NEGATIVE, Urine Urobilinogen 2.0H, Urine Leukocyte Esterase (Auto) 3+H, Urine WBC (Auto) TNTCH, Urine RBC (Auto) 30H, Urine Hyaline Casts (Auto) 0, Urine Bacteria (Auto) 1+H, Urine Squamous Epithelial Cells 0, Urine Mucus (Auto) SMALL, Urine Sperm (Auto) 01/14/20 20:34: Lactic Acid Followup at 4 Hours 1.7 01/15/20 06:49: Anion Gap 9, Glomerular Filtration Rate > 60.0, Calcium Level 8.0#L, Total Bilirubin 0.8, Aspartate Amino Transf (AST/SGOT) 32, Alanine Aminotransferase (ALT/SGPT) 14, Alkaline Phosphatase 79, Total Protein 6.0L, Albumin 2.6#L, Albumin/Globulin Ratio 0.76L, Magnesium Level 1.3L 01/15/20 08:16: Nucleated Red Blood Cells % (auto) 0.0, Prothrombin Time 24.3H, Prothromb Time International Ratio 2.21 CBC/BMP Laboratory Tests 01/14/20 15:58 01/15/20 06:49 01/15/20 08:16 Microbiology Microbiology 01/14/20 Blood Culture - Preliminary, Resulted 01/14/20 Urine Culture, Received Pending 01/14/20 Blood Culture, Received Pending TRENA SIMPSON MD Jan 15, 2020 13:32
[2020-01-15 14:00] VITALS: BP 99/64
[2020-01-15] MEDS: RAPAMUNE 1 MG PO SCH (16:29)
[2020-01-15] MEDS: WARFARIN SOD 3 MG TAB PO SCH (16:30)
--- NOTE | 2020-01-15 17:41 | CR ---
DATE OF CONSULTATION: 01/15/2020 REQUESTING PHYSICIAN: Dr. Jacky Hadley CONSULTING PHYSICIAN: Dr. Cablalero REASON FOR CONSULTATION: Management of renal allograft status in this patient with acute pyelonephritis. CHIEF COMPLAINT: He was sent from nephrology office because of acute pyelonephritis. HISTORY OF PRESENT ILLNESS: Mr. David Kwon is a 75-year-old male with past medical history of renal allograft status, history of multiple compression fractures in the spine, atrial fibrillation. 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 He has a history of urinary tract infection (UTI) and pyelonephritis in the past as well. He was having generalized body aches and pains, fever and chills for the last 3-4 days. He was found to have a dirty UA in the nephrology office, and he was also complaining of decreased urine output from the nephrostomy and the urine was cloudy, so the patient was sent to the hospital for admission. The patient was found to have leukocytosis with a WBC count of 14.9 on arrival. His urine was cloudy and too numerous to count WBCs in the urine. The patient was admitted under the hospitalist service. He initially had an elevated lactic acid level as well. He has been started on broad-spectrum antibiotic. Nephrology service was called for further help in the management of this patient because of history of renal allograft status. I saw and evaluated the patient today morning at the bedside. He reports that he is still feeling almost the same as yesterday. PAST MEDICAL HISTORY: Past medical history of renal allograft status, history of nephrostomy in the renal allograft secondary to obstructive uropathy, hypertension, atrial fibrillation, compression fractures of the vertebra, hypomagnesemia secondary to immunosuppression, chronic pain syndrome, secondary hyperparathyroidism of renal origin. PAST SURGICAL HISTORY: Status post right lower quadrant renal allograft placement, status post arteriovenous (AV) fistula placement in the past, back surgeries in the past. ALLERGIES: The patient is allergic to AMOXICILLIN, CEFUROXIME, CODEINE, DOXYCYCLINE, ATIVAN, PREGABALIN and TIZANIDINE. FAMILY HISTORY: No significant family history of end-stage renal disease. SOCIAL HISTORY: The patient lives at home. He denies any smoking, illicit drug abuse or alcohol abuse. REVIEW OF SYSTEMS: Constitutional: Patient reports generalized weakness, chills. Eyes: He denies any blurry vision, double vision. ENT: Denies any dysphagia, odynophagia. Cardiovascular: He denies any chest pain or palpitations. Respiratory: He denies any shortness of breath or cough. Gastrointestinal (GI): He reports nausea and decreased appetite. Genitourinary: He reports decreased urine output from renal allograft nephrostomy and cloudy urine. Musculoskeletal: He reports generalized muscle aches and pains. Skin: He denies any rashes or ulcers. Central nervous system (CHANGE MANAGEMENT ANALYST): He denies any strokes or seizures. Psychiatric: He denies any depression or anxiety at this time. Hematology/Oncology: He denies any easy bleeding or bruising. All other review of systems is negative. PHYSICAL EXAMINATION: General: The patient is awake, alert, oriented times three, mild painful distress, laying in bed. Vital signs: Temperature is 99.1 degrees Fahrenheit, blood pressure 120/76, pulse is 85, respiratory rate of 20, saturating 92% on room air. Head and neck exam: Extraocular muscles intact. Pupils are equally round and reactive to light. He is wearing a soft collar around the neck. Mucous membranes are moist. Cardiovascular: S1, S2, regular rate. Trace edema of the bilateral lower extremities. Respiratory: Chest is clear to auscultation bilaterally. Bilateral equal air entry. No rales or rhonchi. Abdomen: Soft, positive bowel sounds. He has right lower quadrant renal allograft with a nephrostomy tube. Urine in the bag is slightly cloudy. Musculoskeletal: No clubbing or cyanosis. Pulses are 2+. CHANGE MANAGEMENT ANALYST: No focal deficit. The patient is moving all extremities. Psychiatric: Normal mood and affect. LAB REVIEW: CBC showed a WBC of 14.9 yesterday. Repeat CBC done today morning shows WBC 11.3, hemoglobin 9.7, platelets of 169, INR is 2.2. Urinalysis done yesterday showed it was cloudy with 1+ blood, leukocyte esterase was 3+, too numerous to count WBCs and some RBCs. BMP done today morning showed sodium 138, potassium 4.2, chloride 109, bicarbonate 20, BUN 13, creatinine is 0.85. Lactic acid initially was 3, repeat one is 1.7, magnesium is 1.3, albumin is 2.6. Digoxin level is 0.9. Microbiology: Blood cultures prelim is growing gram-negative rods. Urine culture is pending. IMAGING STUDIES: A chest x-ray was done yesterday, which showed stable appearing chronic changes. No acute cardiopulmonary disease. CURRENT INPATIENT MEDICATIONS: The patient is currently on ceftriaxone 1 gram IV daily; I have changed it 1 gram IV twice a day because of bacteremia. He was given normal saline bolus, and he is also getting normal saline at 60 mL an hour. He is also getting vancomycin 1 gram IV every 24 hours. He is on amiloride 5 mg by mouth daily; I am going to hold it for now when he is getting IV fluids. Aspirin 81 mg daily. Azathioprine 100 mg by mouth daily, calcitriol 0.25 mcg by mouth Tuesday, Tuesday, Tuesday, Flexeril 10 mg by mouth twice a day as needed for muscle spasm, Valium 2 mg by mouth three times a day as needed for anxiety and digoxin 0.125 mg by mouth daily, Colace 100 mg by mouth nightly, Cymbalta 30 mg nightly, gabapentin 600 mg by mouth three times a day, hydroxyzine as needed, magnesium gluconate 3 grams by mouth twice a day, Zofran as needed, Percocet 1.5 tablets every 6 hours as needed for pain, Rapamune 1 mg by mouth daily, MiraLax one packet by mouth nightly as needed for constipation, K-Phos 500 mg by mouth twice a day, prednisone 5 mg by mouth daily, Senna one tablet nightly, vitamin B complex and warfarin 3 mg by mouth nightly. ASSESSMENT: 75-year-old male with a history of renal allograft status, history of atrial fibrillation, chronic hypomagnesemia, nephrostomy tube status in the renal allograft, admitted at this time with sepsis secondary to pyelonephritis. PLAN: 1. Sepsis secondary to pyelonephritis. The patient has gram-negative gilmar bacteremia. He had fever, leukocytosis, lactic acidosis and evidence of urinary tract infection (UTI). Continue broad-spectrum antibiotics until the final culture/sensitivity results come back. As mentioned above, ceftriaxone dose has been increased to 1 gram twice a day. Continue IV fluid hydration. Amiloride has been stopped, but it will be restarted because it is being used for renal magnesium wasting. Because of sepsis and bacteremia, I am going to hold the Azathioprine for a few days. 2. Pyelonephritis of the renal allograft. The patient has a nephrostomy tube in the renal allograft. He is getting the IV antibiotics at this time. Renal allograft function is stable. If needed once his infection clears, he might need exchange of the nephrostomy tube. 3. Renal allograft status. Continue current dose of Rapamune and prednisone. Azathioprine is being held because of sepsis. 4. Chronic hypomagnesemia. Continue current dose of oral magnesium. Amiloride will be started once his sepsis resolves. 5. Chronic hypophosphatemia. Continue current dose of K-Phos. 6. Secondary hyperparathyroidism of renal origin. Continue current dose of calcitriol 0.25 mcg Tuesday, Tuesday, Tuesday. 7. Chronic pain syndrome. Continue current dose of Valium, Flexeril and Percocet. 8. Atrial fibrillation. Continue current dose of her digoxin. Heart rate is controlled. He is anticoagulated with Coumadin. Thank you for involving me in the care of this patient. I shall be happy to follow the patient along with you tomorrow morning.
[2020-01-15] MEDS: **NOTE PATIENT COMMENT** MISC XX SCH (21:00)
[2020-01-15] MEDS: cefTRIAXone SOD 1 GM in D5W MINI-BAG PLUS 50 ML IV SCH (21:28)
[2020-01-15] MEDS: DOCUSATE SODIUM 100 MG CAP PO SCH (21:29)
[2020-01-15] MEDS: SENNA 8.6 MG TAB (SENOKOT) PO SCH (21:29)
[2020-01-15 22:00] VITALS: BP 135/70
[2020-01-16] MEDS: NS 1,000 ML IV SCH (05:42)
[2020-01-16] MEDS: PERCOCET 5MG/325MG TAB PO SCH ×4 (05:42→23:59)
[2020-01-16 06:00] VITALS: BP 123/68
[2020-01-16 06:47] LABS: INR 2.86; PROTHROMBIN TIME 29.9 SECONDS (11.8-14.0)
[2020-01-16 07:04] LABS: BASO % 0.1 % (0.0-1.0); EOS % 0.1 % (0.0-3.0); HEMATOCRIT 30.8 % (42.0-52.0); HEMOGLOBIN 9.9 g/dl (13.5-17.5); LYMPH # 1.3 10^3/uL (1.5-5.0); MEAN CORPUSCULAR HEMOGLOBIN 29.3 pg (27.0-33.0); MEAN CORPUSCULAR HGB CONC 32.1 g/dl (32.0-36.5); MEAN CORPUSCULAR VOLUME 91.1 fl (80.0-96.0); MONO % 11.8 % (0.0-5.0); NEUTROPHILS % 72.4 % (36.0-66.0); PLATELET COUNT, AUTOMATED 195 10^3/uL (150-450); RED BLOOD COUNT 3.38 10^6/uL (4.30-6.10); WHITE BLOOD COUNT 8.3 10^3/uL (4.0-10.0)
[2020-01-16 07:07] LABS: ALBUMIN 2.7 GM/DL (3.2-5.2); BLOOD UREA NITROGEN 15 MG/DL (7-18); CALCIUM LEVEL 9.1 MG/DL (8.8-10.2); CARBON DIOXIDE LEVEL 26 MEQ/L (21-32); CHLORIDE LEVEL 102 MEQ/L (98-107); CREATININE FOR GFR 0.91 MG/DL (0.70-1.30); GLOMERULAR FILTRATION RATE > 60.0 (>42); GLUCOSE, FASTING 113 MG/DL (70-100); MAGNESIUM LEVEL 1.5 MG/DL (1.8-2.4); PHOSPHORUS LEVEL 2.4 MG/DL (2.5-4.9); POTASSIUM SERUM 3.9 MEQ/L (3.5-5.1); SODIUM LEVEL 136 MEQ/L (136-145)
[2020-01-16] MEDS: VANCOMYCIN HCL 1,000 MG, VIAL MATE ADAPTER 1 EACH in D5W 250 ML IV SCH (08:21)
[2020-01-16] MEDS: GABAPENTIN 300 MG CAP PO SCH ×3 (08:22→21:10)
[2020-01-16] MEDS: VITAMIN B COMPLEX/VIT C CAP PO SCH (08:22)
[2020-01-16] MEDS: K-PHOS NEUTRAL 250MG TABLET (SOD.PHOSPHATE/POT.PHOSPHATE) PO SCH ×2 (08:23→21:10)
[2020-01-16] MEDS: DULoxetine 30 MG CAP (CYMBALTA) PO SCH (08:23)
[2020-01-16] MEDS: ASPIRIN 81 MG ENTERIC TAB PO SCH (08:23)
[2020-01-16] MEDS: DIGOXIN 0.125 MG TAB PO SCH (08:23)
[2020-01-16] MEDS: CALCITRIOL 0.25 MCG CAP (S0169) PO SCH (08:23)
[2020-01-16] MEDS: MAGNESIUM GLUCONATE 500 MG TAB PO SCH ×2 (08:23→21:09)
[2020-01-16] MEDS: predniSONE 5 MG TAB PO SCH (08:23)
[2020-01-16] MEDS: RAPAMUNE 1 MG PO SCH (08:24)
[2020-01-16] MEDS: cefTRIAXone SOD 1 GM in D5W MINI-BAG PLUS 50 ML IV SCH ×2 (09:56→21:09)
[2020-01-16] MEDS ORDERED: MAG SULF 1GM/100ML (MAG RUN) 1 GM in IV 1 EA IV ONE (10:15)
--- NOTE | 2020-01-16 12:55 | IPN ---
DATE OF SERVICE: 01/16/2020 SUBJECTIVE: The patient was seen and examined at the bedside today morning. He had fever spikes yesterday. However, he is afebrile today. His renal function is stable. He continues to get intravenous (IV) antibiotics. Leukocytosis is getting significantly better. He continues to complain about leakage at the percutaneous nephrostomy site. His pain is better optimized today. OBJECTIVE: Vital signs: Temperature is 97.6 degrees Fahrenheit, blood pressure 123/68, pulse is 64, respiratory rate of 17, saturating 93% on room air. Intake and output: Urine output recorded is 1.3 liters yesterday, 500 mL so far today since overnight. PHYSICAL EXAMINATION: General: The patient is awake, alert, oriented times three, laying in bed, no apparent distress. Head and neck examination: Pupils are equally round and reactive to light. Mucous membranes are moist. Neck is supple. He is wearing a soft collar. Cardiovascular: S1, S2, regular rate. Trace edema of the bilateral lower extremities. Respiratory: Chest is clear to auscultation bilaterally. Bilateral equal air entry. No rales or rhonchi. Abdomen: Soft, positive bowel sounds. Right lower quadrant renal allograft with a percutaneous nephrostomy. There is some leakage around the nephrostomy site. Musculoskeletal: No clubbing or cyanosis. Pulses are 2+. Central nervous system (COOLER SERVICE SUPERVISOR): No focal deficit. Power is 5/5 in bilateral upper extremities. LABORATORY REVIEW: Complete blood count (CBC) showed a WBC 8.3, hemoglobin 9.9, platelets are 195. INR is 2.8. Basic metabolic profile (BMP) showed sodium 136, potassium 3.9, chloride 102, bicarbonate 26, BUN 15, creatinine is 0.9, calcium 9.1, phosphorus 2.4, magnesium is 1.5, albumin 2.7. MICROBIOLOGY: Urine culture is growing Enterobacter cloacae complex, which is sensitive to ceftriaxone. Blood culture preliminary is growing gram negative rods. CURRENT INPATIENT MEDICATIONS: The patient's medications were all reviewed by me. The patient continues to be on intravenous (IV) ceftriaxone. I ordered a dose of magnesium sulfate 1 gram IV to be given. I stopped the IV fluids, and IV vancomycin has been stopped. No other change in the medications today as compared with yesterday. ASSESSMENT AND PLAN: 1. Sepsis secondary to pyelonephritis. The patient's sepsis is resolving. Leukocytosis is getting better. Urine culture sensitivity were reviewed. Continue current dose of ceftriaxone for now. Final culture results on the blood cultures are still pending. Continue to hold azathioprine at this time. 2. Pyelonephritis of the renal allograft. The patient has a nephrostomy tube in the renal allograft. It is leaking. I have ordered exchange of nephrostomy tube to be done by interventional radiology. 3. Renal allograft status. Continue Rapamune and prednisone. Azathioprine is on hold because he is recovering from sepsis. 4. Chronic hypomagnesemia. Continue current dose of oral magnesium. I have ordered IV magnesium, as well. Amiloride will be started in another one or two days. 5. Chronic hypophosphatemia. Continue current dose of K-Phos. 6. Secondary hyperparathyroidism. Continue current dose of calcitriol Tuesday, Tuesday, Tuesday. 7. Atrial fibrillation. Continue current dose of digoxin. International normalized ratio (INR) is therapeutic. Coumadin is being adjusted by primary team.
--- NOTE | 2020-01-16 13:45 | IPNPDOC ---
Subjective Date Seen The patient was seen on 01/16/20. Subjective Chief Complaint/HPI Patient seen and examined at bedside this morning. Patient appears to be in much better spirits than he was yesterday. He was sitting in the chair and appeared to be more energetic. States that he has not had any recent fevers, chills, shortness of breath, chest pain, abdominal pain. He does have continuous leakage at his nephrostomy tube site that he wishes to be addressed. Otherwise patient has no other complaints at this time. Other systems 10 point review of systems is negative except for what is stated above in the subjective Objective Physical Examination General Exam: Positive: Alert, Cooperative, No Acute Distress, Other (wearing neck brace) Eye Exam: Positive: PERRLA, Conjunctiva & lids normal, EOMI ENT Exam: Positive: Atraumatic, Mucous membr. moist/pink, Pharynx Normal Chest Exam: Positive: Other (mild crackles at lung base with decreased air entry and movement); Negative: Rales, Rhonchi, Wheezing Heart Exam: Positive: Rate Normal, Regular Rhythm, Normal S1, Normal S2, Murmurs (faint systolic murmur appreciated); Negative: Tachycardic Abdomen Exam: Positive: Normal bowel sounds, Soft, Other (right-sided nephrostomy tube noted. Dressing up round and appears to be slightly moist. Urine is dark in color but appears mainly clear in nephrostomy bag); Negative: Tenderness, Hepatospenomegaly Extremity Exam: Negative: Clubbing, Cyanosis, Edema Skin Exam: Positive: Nl turgor and temperature; Negative: Rash, Breakdown Neuro Exam: Positive: Normal Tone, Sensation Intact, Cranial Nerves 3-12 NL Psych Exam: Positive: Mental status NL Assessment /Plan Assessment 75-year-old male status post renal transplant in 2007, A. fib, chronic back pain, presents from [facility] for likely UTI. Patient has a ne phrostomy tube due to obstructive calculi and has been getting UTIs ever since. Patient now has gram-negative bacteremia. White count is beginning to defervesce with antibiotic therapy. Patient appears to be much more alert and clinically well today. Urine cultures are growing Enterobacter which is sensitive to ceftriaxone. As per nephrology, patient will undergo IR procedure for nephrostomy tube exchange to help prevent the leak. We will continue current management for now. Plan/VTE VTE Prophylaxis Ordered?: Yes Plan IVF: Initiate Activity: Continue Current Therapy: PT, OT Medications: Replete Electrolytes PO, Increase Pain Meds 1. Complicated pyelonephritis, nephrostomy tube placement, gram-negative bacteremia Patient has history of UTI secondary to infected nephrostomy tubes in the past. P is to have gram-negative bacteremia which is likely seeded from urinary source. Urine cultures growing Enterobacter which is sensitive to ceftriaxone. Vancomycin to be discontinued. Nephrostomy tube continues to leak. As per nephrology note, IR to be contacted for nephrostomy tube exchange - Follow up blood cultures - follow up urine culture - growing Enterobacter - Continue with ceftriaxone - DC Vanco - Continue with IV fluids as needed - IR for nephrostomy tube exchange 2. History of renal transplant, on immunosuppression No signs of acute rejection currently. Creatinine appears to be slightly above baseline around baseline. - continue with amiloride, sirolimus, prednisone as per home dose - Hold as a azathioprine in the setting of sepsis as per nephro recs 3. Chronic atrial fibrillation On Coumadin at home. INR now therapeutic today. - Continue with current dose warfarin as well as digoxin for rate control. 4. Hypomagnesemia - Replete as needed via oral supplementation 5. Chronic back pain We'll continue his home regimen and dosage pain medications when necessary - Percocet 1.5 tablets every 6 hours when necessary VS, I&O, 24H, [facility] Vital Signs/I&O Vital Signs Date Time Temp Pulse Resp B/P (MAP) Pulse Ox O2 Delivery O2 Flow Rate FiO2 01/16/20 12:28 18 01/16/20 08:23 95 01/16/20 06:00 97.6 123/68 (86) 93 Room Air I&O- Last 24 Hours up to 6 AM 01/16/20 06:00 Intake Total 1537 ml Output Total 1875 ml Balance -338 ml Laboratory Data 24H LABS Laboratory Tests 2 01/16/20 06:01: Immature Granulocyte % (Auto) 0.6, Neutrophils (%) (Auto) 72.4H, Lymphocytes (%) (Auto) 15.0L, Monocytes (%) (Auto) 11.8H, Eosinophils (%) (Auto) 0.1, Basophils (%) (Auto) 0.1, Neutrophils # (Auto) 6.0, Lymphocytes # (Auto) 1.3L, Monocytes # (Auto) 1.0H, Eosinophils # (Auto) 0.0, Basophils # (Auto) 0.0, Nucleated Red Blood Cells % (auto) 0.2H, Prothrombin Time 29.9H, Prothromb Time International Ratio 2.86, Anion Gap 8, Glomerular Filtration Rate > 60.0, Calcium Level 9.1, Phosphorus Level 2.4L, Magnesium Level 1.5L, Albumin 2.7L CBC/BMP Laboratory Tests 01/16/20 06:01 Microbiology Microbiology 01/14/20 Blood Culture - Preliminary, Resulted 01/14/20 Urine Culture - Final, Complete Enterobacter Cloacae Complex 01/14/20 Blood Culture - Preliminary, Resulted No growth after 24 hours . All specim... TRENA SIMPSON MD Jan 16, 2020 13:45
[2020-01-16 14:00] VITALS: BP 115/62
[2020-01-16] MEDS: WARFARIN SOD 3 MG TAB PO SCH (17:21)
[2020-01-16] MEDS: DOCUSATE SODIUM 100 MG CAP PO SCH (21:00)
[2020-01-16] MEDS: **NOTE PATIENT COMMENT** MISC XX SCH (21:00)
[2020-01-16] MEDS: SENNA 8.6 MG TAB (SENOKOT) PO SCH (21:00)
[2020-01-16 22:00] VITALS: BP 99/62
[2020-01-16] MEDS: hydrOXYzine 25 MG TAB PO PRN (23:58)
[2020-01-17] VITALS (8 sets, daily range): BP systolic 96–144; BP diastolic 52–84
[2020-01-17] MEDS: PERCOCET 5MG/325MG TAB PO SCH ×4 (05:34→23:04)
[2020-01-17 07:29] LABS: HEMATOCRIT 28.6 % (42.0-52.0); HEMOGLOBIN 9.4 g/dl (13.5-17.5); MEAN CORPUSCULAR HEMOGLOBIN 29.3 pg (27.0-33.0); MEAN CORPUSCULAR HGB CONC 32.9 g/dl (32.0-36.5); MEAN CORPUSCULAR VOLUME 89.1 fl (80.0-96.0); PLATELET COUNT, AUTOMATED 189 10^3/uL (150-450); RED BLOOD COUNT 3.21 10^6/uL (4.30-6.10); WHITE BLOOD COUNT 6.7 10^3/uL (4.0-10.0)
[2020-01-17 07:49] LABS: ALBUMIN 2.3 GM/DL (3.2-5.2); ALT/SGPT 17 U/L (12-78); BILIRUBIN,TOTAL 0.5 MG/DL (0.2-1.0); BLOOD UREA NITROGEN 12 MG/DL (7-18); CALCIUM LEVEL 8.6 MG/DL (8.8-10.2); CARBON DIOXIDE LEVEL 25 MEQ/L (21-32); CHLORIDE LEVEL 102 MEQ/L (98-107); CREATININE FOR GFR 0.63 MG/DL (0.70-1.30); GLOMERULAR FILTRATION RATE > 60.0 (>42); GLUCOSE, FASTING 104 MG/DL (70-100); MAGNESIUM LEVEL 1.8 MG/DL (1.8-2.4); POTASSIUM SERUM 3.7 MEQ/L (3.5-5.1); SODIUM LEVEL 134 MEQ/L (136-145); TOTAL PROTEIN 5.5 GM/DL (6.4-8.2)
[2020-01-17 07:55] LABS: INR 3.32; PROTHROMBIN TIME 33.7 SECONDS (11.8-14.0)
[2020-01-17] MEDS: RAPAMUNE 1 MG PO SCH (08:43)
[2020-01-17] MEDS: ASPIRIN 81 MG ENTERIC TAB PO SCH (08:43)
[2020-01-17] MEDS: CALCITRIOL 0.25 MCG CAP (S0169) PO SCH (08:43)
[2020-01-17] MEDS: predniSONE 5 MG TAB PO SCH (08:44)
[2020-01-17] MEDS: DIGOXIN 0.125 MG TAB PO SCH (08:45)
[2020-01-17] MEDS: K-PHOS NEUTRAL 250MG TABLET (SOD.PHOSPHATE/POT.PHOSPHATE) PO SCH ×2 (08:45→21:58)
[2020-01-17] MEDS: GABAPENTIN 300 MG CAP PO SCH ×3 (08:45→21:57)
[2020-01-17] MEDS: cefTRIAXone SOD 1 GM in D5W MINI-BAG PLUS 50 ML IV SCH ×2 (08:46→21:59)
[2020-01-17] MEDS: DULoxetine 30 MG CAP (CYMBALTA) PO SCH (08:46)
[2020-01-17] MEDS: MAGNESIUM GLUCONATE 500 MG TAB PO SCH ×2 (08:46→21:58)
[2020-01-17] MEDS: VITAMIN B COMPLEX/VIT C CAP PO SCH (08:46)
[2020-01-17] MEDS: CYCLOBENZAPRINE 10MG TABLET PO PRN (08:55)
[2020-01-17] MEDS: LIDOCAINE 5% (LIDODERM) PATCH TOP PRN (08:56)
--- NOTE | 2020-01-17 12:04 | IPNPDOC ---
Subjective Date Seen The patient was seen on 01/17/20. Subjective Chief Complaint/HPI Patient seen and examined at bedside this morning. Patient reports that he slept well last night. He denies any new fevers, chills, shortness of breath, chest pain, nausea, vomiting. He still states that the nephrostomy tube is leaking. Otherwise patient has no other complaints at this time Other systems 10 point review systems is negative except for what is stated above in subjective Objective Physical Examination General Exam: Positive: Alert, Cooperative, No Acute Distress, Other (wearing neck brace) Eye Exam: Positive: PERRLA, Conjunctiva & lids normal, EOMI ENT Exam: Positive: Atraumatic, Mucous membr. moist/pink, Pharynx Normal Chest Exam: Positive: Other (mild crackles at lung base with decreased air entry and movement); Negative: Rales, Rhonchi, Wheezing Heart Exam: Positive: Rate Normal, Regular Rhythm, Normal S1, Normal S2, Murmurs (faint systolic murmur appreciated); Negative: Tachycardic Abdomen Exam: Positive: Normal bowel sounds, Soft, Other (right-sided nephrostomy tube noted. Dressing up round and appears to be slightly moist. Uri ne is dark in color but appears mainly clear in nephrostomy bag); Negative: Tenderness, Hepatospenomegaly Extremity Exam: Negative: Clubbing, Cyanosis, Edema Skin Exam: Positive: Nl turgor and temperature; Negative: Rash, Breakdown Neuro Exam: Positive: Normal Tone, Sensation Intact, Cranial Nerves 3-12 NL Psych Exam: Positive: Mental status NL Assessment /Plan Assessment 75-year-old male status post renal transplant in 2007, A. fib, chronic back pain, presents from [facility] office for likely UTI. Patient has a nephrostomy tube due to obstructive calculi and has been getting UTIs ever since. Patient is being treated appropriately for Enterobacter infection at this time. White count has now normalized. Currently pending IR evaluation to see whether or not patient can get his nephrostomy tubes exchanged today. Otherwise, patient should be medically stable for discharge tomorrow morning. Plan/VTE VTE Prophylaxis Ordered?: Yes Plan IVF: Decrease Diet: Continue Current Activity: Continue Current Therapy: PT, OT Medications: Replete Electrolytes PO, Increase Pain Meds, Taper Antibiotics 1. Complicated pyelonephritis, nephrostomy tube placement, gram-negative bacteremia Patient has history of UTI secondary to infected nephrostomy tubes in the past. P is to have gram-negative bacteremia which is likely seeded from urinary source. Urine cultures growing Enterobacter which is sensitive to ceftriaxone. Vancomycin to be discontinued. Nephrostomy tube continues to leak. As per nephrology note, IR to be contacted for nephrostomy tube exchange - Follow up blood cultures - follow up urine culture - growing Enterobacter - c/w ceftriaxone - Pending IR consult for nephrostomy tube exchange 2. History of renal transplant, on immunosuppression No signs of acute rejection currently. Creatinine appears to be slightly above baseline around baseline. - continue with amiloride, sirolimus, prednisone as per home dose - Hold as a azathioprine in the setting of sepsis as per nephro recs 3. Chronic atrial fibrillation On Coumadin at home. INR now therapeutic today. - Continue with current dose warfarin as well as digoxin for rate control. 4. Hypomagnesemia - Replete as needed via oral supplementation 5. Chronic back pain We'll continue his home regimen and dosage pain medications when necessary - Percocet 1.5 tablets every 6 hours when necessary VS, I&O, [facility]H, [facility] Vital Signs/I&O Vital Signs Date Time Temp Pulse Resp B/P (MAP) Pulse Ox O2 Delivery O2 Flow Rate FiO2 01/17/20 11:53 16 Room Air 01/17/20 08:45 75 01/17/20 06:00 99.8 102/64 (77) 94 I&O- Last 24 Hours up to 6 AM 01/17/20 05:59 Intake Total 1150 ml Output Total 250 ml Balance 900 ml Laboratory Data 24H LABS Laboratory Tests 2 01/17/20 06:57: Nucleated Red Blood Cells % (auto) 0.0, Prothrombin Time 33.7H, Prothromb Time International Ratio 3.32, Anion Gap 7L, Glomerular Filtration Rate > 60.0, Calcium Level 8.6L, Magnesium Level 1.8, Total Bilirubin 0.5, Aspartate Amino Transf (AST/SGOT) 28, Alanine Aminotransferase (ALT/SGPT) 17, Alkaline Phosphatase 68, Total Protein 5.5L, Albumin 2.3L, Albumin/Globulin Ratio 0.72L CBC/BMP Laboratory Tests 01/17/20 06:57 Microbiology Microbiology 01/17/20 Blood Culture, Received Pending 01/17/20 Blood Culture, Received Pending 01/14/20 Blood Culture - Final, Complete Enterobacter Cloacae Complex 01/14/20 Urine Culture - Final, Complete Enterobacter Cloacae Complex 01/14/20 Blood Culture - Preliminary, Resulted No Growth after 48 hours. All Specime... TRENA SIMPSON MD Jan 17, 2020 12:04
--- NOTE | 2020-01-17 12:30 | REP ---
CT ABDOMEN AND PELVIS WITHOUT CONTRAST: CT abdomen and pelvis performed without oral or IV contrast. Sagittal and coronal reconstruction images are performed. Comparison is made with a prior study of 11/04/2019. A new moderate right effusion with mild adjacent right lower lobe atelectasis/infiltrate. There is a very small left pleural effusion with mild dependent atelectatic changes in the left lung base. The liver is grossly unremarkable. The spleen, adrenals and pancreas are grossly unremarkable. Left retroperitoneal calcifications are unchanged. Right lower quadrant renal transplant is again noted. There is a right percutaneous nephrostomy tube. The pigtail is located in the region of the cortex of the mid aspect of the renal transplant. There does not appear to be definite hydronephrosis. Anteriorly in the cortex just below the level of the pigtail drainage catheter, there is a rounded area of fluid containing a small focus of air as well as a small dependent calcification, the calcification measures 3 mm. The diameter of this fluid is approximately 2.2 cm and appears slightly less than on the prior CT exam. There is a 3 mm calcification in the adjacent posterior collecting system and a 7 mm calcification in the lower pole collecting system. No perinephric fluid collection is seen. There appear to be focal fat necrosis just above the renal transplant. There is moderate atherosclerotic calcification of he abdominal aorta without aneurysm. There is no adenopathy. There is no free air or free fluid. There is no bowel wall thickening. There is evidence of prior anterior abdominal wall hernia surgery. There is again noted a left inguinal hernia containing nonobstructed bowel. Urinary bladder is not well distended. There are degenerative changes of the spine. Metallic rods and screws are seen in the lower thoracic and upper lumbar spine. There are multiple compression deformities of the vertebral bodies unchanged since the prior exam. There is a chronic stable area of focal fluid in the midline of the posterior lumbar soft tissues which measures about 5.9 x 5.6 cm. IMPRESSION: New moderate right effusion. Small left effusion. There is mild streaky atelectasis or infiltrate in the right lung base. Right lower quadrant renal transplant is again noted. The percutaneous nephrostomy tube demonstrates the distal pigtail tip in the cortical medullary region of the renal transplant. I do not see evidence of definite hydronephrosis. In the anterior cortex of the renal transplant there is again noted a small area of fluid containing a tiny focus of air which appears mildly decreased in size since the prior study 2.2 cm in maximum diameter. There is no perinephric fluid collection. Renal calculi are again noted as discussed above. Left inguinal hernia is again noted containing nonobstructed bowel. There is a chronic stable area of focal fluid in the midline of the posterior lumbar soft tissues which measures about 5.9 x 5.6 cm. Electronically Signed by Fantasma Dunn MD 01/17/2020 12:56 P
[2020-01-17] MEDS ORDERED: MIDAZOLAM INJ 2MG/2ML VIAL (J2250 PER 1MG) As Ordered ONE (13:03)
[2020-01-17] MEDS ORDERED: diphenhydrAMINE 50MG/ML VIAL (J1200) As Ordered ONE (13:03)
[2020-01-17] MEDS ORDERED: fentaNYL 100 MCG/2 ML INJECTION (J3010) As Ordered ONE (13:03)
[2020-01-17] MEDS ORDERED: ceFAZolin 1GM VIAL (J0690 PER 500MG) As Ordered ONE (13:12)
[2020-01-17] MEDS ORDERED: LIDOCAINE 1% MDV 20ML VIAL As Ordered ONE (13:15)
[2020-01-17] MEDS ORDERED: ISOVUE-300 61% 50ML VIAL As Ordered ONE (13:16)
--- NOTE | 2020-01-17 13:50 | POST-OPPD ---
Postoperative Procedure Note Date Of Procedure: Jan 17, 2020 Time Of Procedure: 13:49 PREOPERATIVE DIAGNOSIS: ureteral stricture. Transplant kidney POSTOPERATIVE DIAGNOSIS: same FINDINGS: retracted right PCN PROCEDURE: right PCN replacement SURGEON: mihaela ANESTHESIA: mod sed ESTIMATED BLOOD LOSS: < 5 ml COMPLICATIONS: none POSTOPERATIVE CONDITION: stable ERICH TATUM MD Jan 17, 2020 13:50
[2020-01-17] MEDS: aMILoride 5 MG TAB PO SCH (14:22)
--- NOTE | 2020-01-17 14:58 | REP ---
IR Nephrostomy Catheter ReplacementClinical Information: Patient with indwelling right transplant nephrostomy catheter which is inadvertently dislodged.Physician: Dr. AceProcedure: The patient was advised of the benefits, risks, and alternatives of the procedure and informed consent was obtained.A time out was performed with verification of the patient's name, MRN, site of procedure, and type of procedure to be performed. The patient was positioned in the supine position on the angiographic table. The site was prepped and draped in the usual sterile fashion.Moderate sedation was not required. 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 Lidocaine was used for local anesthesia. A Glidewire was advanced through the existing nephrostomy catheter into the right renal collecting system. The catheter was removed and a new 10 Fr nephrostomy catheter was advanced over the wire and the pigtail was formed in the renal pelvis. A final nephrostogram demonstrates hydropnephrosis and hydroureter and confirms appropriate position of the pigtail within the renal pelvis.The nephrostomy catheter was secured to the skin using 2-0 Prolene sutures. The catheter was attached to a gravity drainage bag. The patient tolerated the procedure well and was returned to the PRU in stable condition.EBL: < 5 mlComplications: NoneConclusion:1. Patient with indwelling right sided nephrostomy catheter which was inadvertently disclodged.2. Successful fluoroscopically guided nephrostomy catheter replacement with a new 10 Fr Resolve nephrostomy catheter.3. Patient should return for routine Nephrostomy catheter exchange in 12 weeks. Thank you for this referral. Electronically Signed by Rafia Quach MD 01/17/2020 02:50 P
[2020-01-17] MEDS: WARFARIN SOD 3 MG TAB PO SCH (15:22)
[2020-01-17] MEDS: **NOTE PATIENT COMMENT** MISC XX SCH (21:00)
[2020-01-17] MEDS: hydrOXYzine 25 MG TAB PO PRN (21:58)
[2020-01-17] MEDS: SENNA 8.6 MG TAB (SENOKOT) PO SCH (21:59)
[2020-01-17] MEDS: DOCUSATE SODIUM 100 MG CAP PO SCH (21:59)
--- NOTE | 2020-01-17 23:21 | IPN ---
DATE: 01/17/2020 SUBJECTIVE: The patient was seen and examined at the bedside today morning. The patient is afebrile, hemodynamically stable. He reports that he persistently is having leakage around the percutaneous nephrostomy tube site. He also feels like there is a fluid collection in the right lower quadrant close to his transplant site, and this fluid collection is getting worse. I had requested the nephrostomy tube change to be done yesterday; it has not been done so far. I discussed with radiology, and they requested a stat CT scan of the abdomen and pelvis to rule out a collection of fluid around the right lower quadrant renal allograft. OBJECTIVE: Vital signs: Temperature is 98.4 degrees Fahrenheit, blood pressure 96/54, pulse is 88, respiratory rate of 18, saturating 93% on room air. Intake and output: Urine output recorded is 550 mL yesterday, 1000 mL so far today since overnight. Weight in the bed scale is not available. PHYSICAL EXAMINATION: General: The patient is awake, alert and oriented times three, laying in bed, no apparent distress. Head and neck exam: Pupils are equally round and reactive to light. Mucous membranes are moist. Neck is supple. He is wearing a soft neck collar. Cardiovascular: S1, S2, regular rate. Trace edema of the bilateral lower extremities. Respiratory: Chest is clear to auscultation bilaterally. Bilateral equal air entry. No rales or rhonchi. Abdomen: Soft, positive bowel sounds. The patient has a right lower quadrant renal allograft with mild tenderness and some fluid collection around the renal allograft site, and he has a nephrostomy tube in the renal allograft, and there is some leakage of urine at the exit site. Musculoskeletal: No clubbing or cyanosis. Pulses are 2+. 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 He moves all of his extremities. LAB REVIEW: CBC showed a WBC of 6.7, hemoglobin 9.4, platelets are 189, INR is 3.3. BMP showed sodium 134, potassium 3.7, chloride 102, bicarbonate 25, BUN 12, creatinine is 0.6, calcium 8.6, magnesium is 1.8 today, albumin is 2.3. Microbiology: Blood culture and urine culture both are growing Enterobacter cloacae complex and both of the cultures are sensitive to ceftriaxone. IMAGING: CT scan abdomen and pelvis without contrast showed nephrostomy tube and distal pigtail tip in the cortical medullary region of the renal transplant. CURRENT INPATIENT MEDICATIONS: The patient continues to be on ceftriaxone 1 gram IV twice a day. He is being started back on amiloride 5 mg by mouth daily. Azathioprine will be restarted in 2 days. No other change in the medications today as compared with yesterday. ASSESSMENT/PLAN: 1. Pyelonephritis of the renal allograft. The patient is growing Enterobacter cloacae in the urine culture, which is sensitive to ceftriaxone. Continue current dose of ceftriaxone. 2. Enterobacter cloacae bacteremia. The patient is growing the same organism in the blood culture as well. He will need at least 2 weeks of IV antibiotics; duration of the antibiotics is being increased. 3. Renal allograft status. Continue Rapamune and prednisone. Azathioprine is on hold, and it will be restarted in 2 days. 4. Chronic hypomagnesemia. Amiloride has been restarted. He was given IV magnesium. Magnesium level is better today. 5. Chronic hypophosphatemia. Continue current dose of K-Phos. 6. Dislodged right lower quadrant renal allograft nephrostomy tube. The patient is going to have a new nephrostomy tube placed by interventional radiology (IR) today.
[2020-01-18] MEDS: PERCOCET 5MG/325MG TAB PO SCH ×2 (05:37→11:29)
[2020-01-18 05:47] VITALS: BP 109/63
[2020-01-18 05:57] LABS: HEMATOCRIT 28.7 % (42.0-52.0); HEMOGLOBIN 9.3 g/dl (13.5-17.5); MEAN CORPUSCULAR HEMOGLOBIN 29.2 pg (27.0-33.0); MEAN CORPUSCULAR HGB CONC 32.4 g/dl (32.0-36.5); MEAN CORPUSCULAR VOLUME 90.3 fl (80.0-96.0); PLATELET COUNT, AUTOMATED 191 10^3/uL (150-450); RED BLOOD COUNT 3.18 10^6/uL (4.30-6.10); WHITE BLOOD COUNT 5.8 10^3/uL (4.0-10.0)
[2020-01-18 06:07] LABS: INR 3.12
[2020-01-18 06:24] LABS: ALBUMIN 2.1 GM/DL (3.2-5.2); ALT/SGPT 15 U/L (12-78); BILIRUBIN,TOTAL 0.3 MG/DL (0.2-1.0); BLOOD UREA NITROGEN 15 MG/DL (7-18); CALCIUM LEVEL 9.4 MG/DL (8.8-10.2); CARBON DIOXIDE LEVEL 26 MEQ/L (21-32); CHLORIDE LEVEL 105 MEQ/L (98-107); CREATININE FOR GFR 0.69 MG/DL (0.70-1.30); GLOMERULAR FILTRATION RATE > 60.0 (>42); GLUCOSE, FASTING 99 MG/DL (70-100); MAGNESIUM LEVEL 1.2 MG/DL (1.8-2.4); POTASSIUM SERUM 3.6 MEQ/L (3.5-5.1); SODIUM LEVEL 138 MEQ/L (136-145); TOTAL PROTEIN 5.8 GM/DL (6.4-8.2)
[2020-01-18] MEDS: WARFARIN SOD 3 MG TAB PO SCH (08:18)
[2020-01-18] MEDS: CYCLOBENZAPRINE 10MG TABLET PO PRN (08:45)
[2020-01-18] MEDS: VITAMIN B COMPLEX/VIT C CAP PO SCH (08:45)
[2020-01-18] MEDS: GABAPENTIN 300 MG CAP PO SCH (08:45)
[2020-01-18] MEDS: ASPIRIN 81 MG ENTERIC TAB PO SCH (08:45)
[2020-01-18] MEDS: RAPAMUNE 1 MG PO SCH (08:45)
[2020-01-18] MEDS: DULoxetine 30 MG CAP (CYMBALTA) PO SCH (08:46)
[2020-01-18] MEDS: CALCITRIOL 0.25 MCG CAP (S0169) PO SCH (08:46)
[2020-01-18] MEDS: DIGOXIN 0.125 MG TAB PO SCH (08:46)
[2020-01-18] MEDS: predniSONE 5 MG TAB PO SCH (08:46)
[2020-01-18] MEDS: aMILoride 5 MG TAB PO SCH (08:46)
[2020-01-18] MEDS: MAGNESIUM GLUCONATE 500 MG TAB PO SCH (08:47)
[2020-01-18] MEDS: cefTRIAXone SOD 1 GM in D5W MINI-BAG PLUS 50 ML IV SCH (08:47)
[2020-01-18] MEDS: LIDOCAINE 5% (LIDODERM) PATCH TOP PRN (08:50)
[2020-01-18] MEDS: K-PHOS NEUTRAL 250MG TABLET (SOD.PHOSPHATE/POT.PHOSPHATE) PO SCH (08:53)
[2020-01-18] MEDS ORDERED: LEVA1TAB2 PO (10:01)
--- NOTE | 2020-01-18 10:10 | DS.PDOC ---
Discharge Summary General Date of Admission Jan 14, 2020 at 17:24 Date of Discharge 01/18/20 Specialist/Consultants Involve: PATRIA KHAN MD Discharge Summary PROCEDURES PERFORMED DURING STAY: Nephrostomy tube exchange via IR. ADMITTING DIAGNOSES: 1. Sepsis due to UTI. DISCHARGE DIAGNOSES: 1. Sepsis and bacteremia due to Enterobacter. COMPLICATIONS/CHIEF COMPLAINT: Afib,Esrd,Htn,Pyelonephritis. HISTORY OF PRESENT ILLNESS: HISTORY OF PRESENT ILLNESS: 74-year-old male with past medical history of end-stage renal disease, was temporarily on dialysis, status post renal transplant in 2006, atrial fibrillation (on Coumadin), hypertension, compression fracture, status post multiple back surgeries, presents from [employer] office for UTI. Patient has a nephrostomy tube placed in the transplanted kidney due to an obstructive calculi. He was admitted in October, for the same reason and has been feeling well since discharge. He reports experiencing lower abdominal pain, radiating towards his back & legs along with nausea & fever for the past 3-4 days. He went to his Middleware Consultant's office & UA was concerning for UTI. He reports decreased urine output via Neph rostomy for the past few days along with urination; he normally urinates <50 ml/day. He has no other complaints at this time. He denies any SOB, CP, headache or diarrhea. . HOSPITAL COURSE: Patient was admitted to the medical floor for further evaluation and management. Blood cultures were drawn and patient was started on empiric ceftriaxone therapy. Urine cultures and blood cultures grew Enterobacter that was sensitive to ceftriaxone. Patient's labs were monitored and his white count defervesced patient clinically improved. Patient's nephrostomy tube was seen to be leaking a copious monitor urine making the patient comfortable as well as serving as a nidus for infection. Interventional radiology was consult to nephrostomy tube exchange was done under fluoroscopy. Repeat blood cultures d rawn at the appropriate times and were found to be negative after initiation of antibiotics. Patient will require 2 weeks of antibiotic therapy after his last set of negative blood cultures. He is now currently medically stable for discharge at this time. Patient will be discharged on Levaquin for 13 additional days. Patient will need to follow-up with his outside maintenance worker as well as his PCP given his mildly elevated INR. DISCHARGE MEDICATIONS: Please see below. ALLERGIES: Please see below. PHYSICAL EXAMINATION ON DISCHARGE: General Exam: Positive: Alert, Cooperative, No Acute Distress, Other (wearing neck brace) Eye Exam: Positive: PERRLA, Conjunctiva & lids normal, EOMI ENT Exam: Positive: Atraumatic, Mucous membr. moist/pink, Pharynx Normal Chest Exam: Positive: Other (mild crackles at lung base with decreased air entry and movement); Negative: Rales, Rhonchi, Wheezing Heart Exam: Positive: Rate Normal, Regular Rhythm, Normal S1, Normal S2, Murmurs (faint systolic murmur appreciated); Negative: Tachycardic Abdomen Exam: Positive: Normal bowel sounds, Soft, Other (right-sided nephrostomy tube noted. Dressing is clean/dry/intact. Urine is clear and yellow); Negative: Tenderness, Hepatospenomegaly Extremity Exam: Negative: Clubbing, Cyanosis, Edema Skin Exam: Positive: Nl turgor and temperature; Negative: Rash, Breakdown Neuro Exam: Positive: Normal Tone, Sensation Intact, Cranial Nerves 3-12 NL Psych Exam: Positive: Mental status NL LABORATORY DATA: Please see below. IMAGING: CT abd pelvis - IMPRESSION: New moderate right effusion. Small left effusion. There is mild streaky atelectasis or infiltrate in the right lung base. Right lower quadrant renal transplant is again noted. The percutaneous nephrostomy tube demonstrates the distal pigtail tip in the cortical medullary region of the renal transplant. I do not see evidence of definite hydronephrosis. In the anterior cortex of the renal transplant there is again noted a small area of fluid containing a tiny focus of air which appears mildly decreased in size since the prior study 2.2 cm in maximum diameter. There is no perinephric fluid collection. Renal calculi are again noted as discussed above. Left inguinal hernia is again noted containing nonobstructed bowel. There is a chronic stable area of focal fluid in the midline of the posterior lumbar soft tissues which measures about 5.9 x 5.6 cm. PROGNOSIS: Good, patient expected to make full recovery ACTIVITY: As tolerated. DIET: No dietary selections DISCHARGE PLAN: Medically stable for discharge home DISCHARGE INSTRUCTIONS: 1. Please resume your home medications as prescribed. 2. Please take 1 Levaquin 500 mg tab daily for the next 13 days to complete antibiotic treatment. 3. Please follow up with the nephrology clinic within the next 7 days. Appointment has been made for you by the nursing staff. 4. Please follow-up with the INR clinic CP within the next 3 days. He will need to hold her home dose of warfarin tonight and resume tomorrow. ITEMS TO FOLLOWUP ON ON OUTPATIENT: 1. INR 2. Follow-up after UTI and nephrostomy tube exchange. DISCHARGE CONDITION: Medically stable for discharge. TIME SPENT ON DISCHARGE: 20 minutes Vital Signs/I&Os Vital Signs Date Time Temp Pulse Resp B/P (MAP) Pulse Ox O2 Delivery O2 Flow Rate FiO2 01/18/20 08:46 67 01/18/20 06:07 14 01/18/20 05:47 98.5 109/63 (78) 97 Room Air I&O- Last 24 Hours up to 6 AM 01/18/20 06:00 Intake Total 1590 ml Output Total 1750 ml Balance -160 ml Laboratory Data Labs 24H Laboratory Tests 2 01/18/20 05:36: Nucleated Red Blood Cells % (auto) 0.0, Prothrombin Time 32.0H, Prothromb Time International Ratio 3.12, Anion Gap 7L, Glomerular Filtration Rate > 60.0, Calcium Level 9.4, Magnesium Level 1.2L, Total Bilirubin 0.3, Aspartate Amino Transf (AST/SGOT) 25, Alanine Aminotransferase (ALT/SGPT) 15, Alkaline Phosphatase 63, Total Protein 5.8L, Albumin 2.1L, Albumin/Globulin Ratio 0.57L CBC/BMP Laboratory Tests 01/18/20 05:36 Microbiology Microbiology 01/17/20 Blood Culture - Preliminary, Resulted No growth after 24 hours . All specim... 01/17/20 Blood Culture - Preliminary, Resulted No growth after 24 hours . All specim... 01/14/20 Blood Culture - Final, Complete Enterobacter Cloacae Complex 01/14/20 Urine Culture - Final, Complete Enterobacter Cloacae Complex 01/14/20 Blood Culture - Preliminary, Resulted No Growth after 72 hours. All specime... Discharge Medications Scheduled Amiloride HCl (Amiloride HCl) 5 Mg Tablet, 5 MG PO DAILY, (Reported) Aspirin (Aspir 81) 81 Mg Tab, 81 MG PO DAILY, (Reported) Azathioprine (Azathioprine) 50 Mg Tablet, 100 MG PO DAILY, (Reported) Calcitriol (Calcitriol) 0.25 Mcg Cap, 0.25 MCG PO 5XW, (Reported) MON-FRI Digoxin (Digoxin) 125 Mcg Tablet, 125 MCG PO DAILY, (Reported) Docusate Sodium (Docusate Sodium) 100 Mg Capsule, 100 MG PO QHS, (Reported) Duloxetine Hcl (Cymbalta) 30 Mg Capsule.dr, 30 MG PO DAILY, (Reported) Gabapentin (Gabapentin) 300 Mg Capsule, 600 MG PO TID, (Reported) Levofloxacin (Levaquin) 500 Mg Tablet, 500 MG PO DAILY Magnesium Gluconate (Magnesium Gluconate) 27 Mg Tablet, 6 TABS PO BID, (Reported) Melatonin (Melatonin) 10 Mg Capsule, 10 MG PO QHS, (Reported) Oxycodone HCl/Acetaminophen (Oxycodone-Acetaminophen 5-325) 1 Each Tablet, 1 TAB PO Q6H, (Reported) Polyethylene Glycol 3350 (Miralax) 119 Gm Powder, 17 GRAM PO QHS, (Reported) DISSOLVE IN WATER OR JUICE Prednisone (Prednisone) 5 Mg Tab, 5 MG PO DAILY, (Reported) Sennosides (Senna Lax) 8.6 Mg Tablet, 17.2 MG PO QHS, (Reported) Sirolimus (Rapamune) 1 Mg Tablet, 2 MG PO DAILY, (Reported) Sod Phos Di, Ector/K Phos Ector (Virt-Phos 250 Neutral Tablet) 1 Tab Tab, 2 TAB PO BID, (Reported) Vitamin B Complex Vit C No.3 (B Complex with Vitamin C) 1 Cap Cap, 1 CAP PO DAILY, (Reported) Warfarin Sodium (Warfarin Sodium) 3 Mg Tablet, 3 MG PO QHS, (Reported) Scheduled PRN Acetaminophen (Acetaminophen) 325 Mg Tablet, 650 MG PO Q4H PRN for PAIN, (Reported) Cyclobenzaprine HCl (Cyclobenzaprine HCl) 10 Mg Tablet, 10 MG PO BID PRN for MUSCLE SPASMS, (Reported) Diazepam (Diazepam) 2 Mg Tablet, 2 MG PO TID PRN for ANXIETY, (Reported) Hydroxyzine HCl (Hydroxyzine HCl) 25 Mg Tablet, 50 MG PO QHS PRN for INSOMNIA, (Reported) Lidocaine (Lidoderm) 5% Adh..patch, 1 PATCH TOP DAILY PRN for PAIN, (Reported) APPLY TO BACK 12HR ON, 12HR OFF Methyl Salicylate/Menthol (Icy Hot Cream) 35.4 Gm Cream..g., 1 APLCT TOP DAILY PRN for BACK PAIN, (Reported) Ondansetron HCl (Zofran) 4 Mg Tablet, 4 MG PO TID PRN for NAUSEA OR VOMITING, (Reported) Allergies Coded Allergies: cefuroxime (Verified Adverse Reaction, Mild, ANXIETY, 12/20/18) codeine (Verified Adverse Reaction, Mild, AGITATION, 12/20/18) doxycycline (Verified Adverse Reaction, Mild, UPSET STOMACH, 01/14/20) lorazepam (Verified Adverse Reaction, Mild, AGITATION, 12/20/18) pregabalin (Verified Adverse Reaction, Mild, ANXIETY, DROWSINESS, 01/14/20) amoxicillin (Verified Adverse Reaction, Unknown, can take few prior to dentist but can not take for 10 days, 01/14/20) tizanidine (Verified Adverse Reaction, Unknown, 01/14/20) TRENA SIMPSON MD Jan 18, 2020 10:10
[2020-01-18 11:59] VITALS: BP 109/63
[2020-01-30] MEDS ORDERED: cefTRIAXone SOD 1 GM in D5W MINI-BAG PLUS 50 ML IV SCH (08:00)
== END 2020-01-18 12:16 | disposition home or self-care (01) | DRG 698 ==
LOC: M ED 15:24 → M ED INP 17:24 → ENRESERV 17:39 → M MSPAV 18:31
PROVIDERS: ADMIT Internal Medicine; ATTEND Internal Medicine
PROC: 0T767DZ Dilation of Right Ureter with Intraluminal Device, Via Natural or Artificial Opening (ICD-10-PCS; 2020-01-17)
PROC: 0TP98DZ Removal of Intraluminal Device from Ureter, Via Natural or Artificial Opening Endoscopic (ICD-10-PCS; principal; 2020-01-17 13:00)
DX: T86.13 Kidney transplant infection (principal); A41.9 Sepsis, unspecified organism; N18.6 End stage renal disease; N10 Acute pyelonephritis; I48.20 Chronic atrial fibrillation, unspecified; I12.0 Hypertensive chronic kidney disease with stage 5 chronic kidney disease or end stage renal disease; N25.81 Secondary hyperparathyroidism of renal origin; N20.0 Calculus of kidney; E83.42 Hypomagnesemia; Z79.01 Long term (current) use of anticoagulants; Z79.899 Other long term (current) drug therapy; Z79.82 Long term (current) use of aspirin; Z88.5 Allergy status to narcotic agent; Z88.0 Allergy status to penicillin; Z88.8 Allergy status to other drugs, medicaments and biological substances; Z87.891 Personal history of nicotine dependence; G89.29 Other chronic pain; E83.39 Other disorders of phosphorus metabolism; Y83.0 Surgical operation with transplant of whole organ as the cause of abnormal reaction of the patient, or of later complication, without mention of misadventure at the time of the procedure

== ENCOUNTER → 2020-01-21 | Outpatient (REF) | payer MEDICARE ==
[~2020-01-21] MED LIST changes: +DIGO0.123 PO; +ICYCRE TOP; +LEVA1TAB2 PO
[2020-01-21 17:33] LABS: INR 2.15; PROTHROMBIN TIME 23.8 SECONDS (11.8-14.0)
== END ==
LOC: M LAB REF 16:46
PROVIDERS: ATTEND Internal Medicine Nephrology
DX: Z79.01 Long term (current) use of anticoagulants (principal)

== ENCOUNTER 2020-01-23 15:59 | Outpatient (CLI) | payer MEDICARE ==
[~2020-01-23] VITALS: Ht 177.8 cm; Wt 69.0 kg
[2020-01-23 16:05] VITALS: BP 118/63
[2020-01-23] MEDS ORDERED: cefTRIAXone SOD 2 GM in D5W MINI-BAG PLUS 50 ML IV SCH (16:30)
[2020-01-23 17:15] VITALS: BP 135/83
== END 2020-01-23 17:15 | disposition home or self-care (01) ==
LOC: M INFU 15:59
PROVIDERS: ATTEND Internal Medicine Nephrology
DX: R78.81 Bacteremia (principal); N17.9 Acute kidney failure, unspecified; Z88.1 Allergy status to other antibiotic agents; Z88.5 Allergy status to narcotic agent; Z88.8 Allergy status to other drugs, medicaments and biological substances
CPT/HCPCS: 96365; J0696

== ENCOUNTER → 2020-01-23 | Outpatient (REF) | payer MEDICARE | LOC: M LAB REF 10:27 | PROVIDERS: ATTEND Dermatology | DX: C44.320 Squamous cell carcinoma of skin of unspecified parts of face (principal); D04.4 Carcinoma in situ of skin of scalp and neck; L90.5 Scar conditions and fibrosis of skin ==

== ENCOUNTER → 2020-01-24 | Outpatient (CLI) | payer MEDICARE ==
[~2020-01-24] VITALS: Ht 175.3 cm; Wt 69.0 kg
[~2020-01-24] MED LIST changes: +cefTRIAXone SOD 2 GM in D5W MINI-BAG PLUS 50 ML IV ONE
[2020-01-24 16:00] VITALS: BP 126/57
[2020-01-24 16:46] VITALS: BP 120/58
== END ==
LOC: M INFU 15:58
PROVIDERS: ATTEND Internal Medicine Nephrology
DX: R78.81 Bacteremia (principal); Z88.1 Allergy status to other antibiotic agents; Z88.5 Allergy status to narcotic agent; Z88.8 Allergy status to other drugs, medicaments and biological substances
CPT/HCPCS: 96365; J0696

== ENCOUNTER → 2020-01-24 | Outpatient (REF) | payer MEDICARE ==
[~2020-01-24] MED LIST changes: -cefTRIAXone SOD 2 GM in D5W MINI-BAG PLUS 50 ML IV ONE
[2020-01-24 18:25] LABS: INR 2.37; PROTHROMBIN TIME 25.8 SECONDS (11.8-14.0)
== END ==
LOC: M LAB REF 16:37
PROVIDERS: ATTEND Internal Medicine Nephrology
DX: Z79.01 Long term (current) use of anticoagulants (principal)

== ENCOUNTER 2020-01-25 16:06 | Outpatient (CLI) | payer MEDICARE ==
[~2020-01-25] VITALS: Ht 180.3 cm; Wt 69.0 kg
[~2020-01-25 16:06] MED LIST changes: +cefTRIAXone SOD 2 GM in D5W MINI-BAG PLUS 50 ML IV ONE
[2020-01-25 16:21] VITALS: BP 126/66
[2020-01-25 16:45] VITALS: BP 114/65
== END 2020-01-25 16:45 | disposition home or self-care (01) ==
LOC: M INFU 16:06
PROVIDERS: ATTEND Internal Medicine Nephrology
DX: R78.81 Bacteremia (principal); Z88.1 Allergy status to other antibiotic agents; Z88.5 Allergy status to narcotic agent; Z88.8 Allergy status to other drugs, medicaments and biological substances
CPT/HCPCS: 96365; J0696

== ENCOUNTER 2020-01-26 15:29 | Outpatient (CLI) | payer MEDICARE ==
[~2020-01-26] VITALS: Ht 172.7 cm; Wt 67.3 kg
[~2020-01-26 15:29] MED LIST changes: -cefTRIAXone SOD 2 GM in D5W MINI-BAG PLUS 50 ML IV ONE
[2020-01-26] MEDS ORDERED: cefTRIAXone SOD 2 GM in D5W MINI-BAG PLUS 50 ML IV ONE (16:15)
[2020-01-26 16:50] VITALS: BP 128/75
[2020-01-26 17:15] VITALS: BP 127/77
== END 2020-01-26 17:45 | disposition home or self-care (01) ==
LOC: M OPCLI4PV 15:29 → M MSPAV 15:29 → M OPCLI4PV 17:45
PROVIDERS: ATTEND Internal Medicine Nephrology
DX: R78.81 Bacteremia (principal); Z88.1 Allergy status to other antibiotic agents; Z88.5 Allergy status to narcotic agent; Z88.8 Allergy status to other drugs, medicaments and biological substances
CPT/HCPCS: 96365; J0696

== ENCOUNTER 2020-01-27 15:32 | Outpatient (CLI) | payer MEDICARE ==
[~2020-01-27] VITALS: Ht 172.7 cm; Wt 68.1 kg
[2020-01-27] MEDS ORDERED: cefTRIAXone SOD 2 GM in D5W MINI-BAG PLUS 50 ML IV ONE (16:00)
[2020-01-27 16:01] VITALS: BP 133/72
== END 2020-01-27 17:44 | disposition home or self-care (01) ==
LOC: M OPCLI4PV 15:32 → M MSPAV 15:34 → M OPCLI4PV 17:44
PROVIDERS: ATTEND Internal Medicine Nephrology
DX: R78.81 Bacteremia (principal); Z88.1 Allergy status to other antibiotic agents; Z88.5 Allergy status to narcotic agent; Z88.8 Allergy status to other drugs, medicaments and biological substances
CPT/HCPCS: 96374; J0696

== ENCOUNTER 2020-01-28 15:48 | Outpatient (CLI) | payer MEDICARE ==
[~2020-01-28] VITALS: Ht 177.8 cm; Wt 69.0 kg
[~2020-01-28 15:48] MED LIST changes: +cefTRIAXone SOD 2 GM in D5W MINI-BAG PLUS 50 ML IV ONE
[2020-01-28 15:55] VITALS: BP 132/67
[2020-01-28 17:00] VITALS: BP 123/71
== END 2020-01-28 17:00 | disposition home or self-care (01) ==
LOC: M INFU 15:48
PROVIDERS: ATTEND Internal Medicine Nephrology
DX: R78.81 Bacteremia (principal); Z88.0 Allergy status to penicillin; Z88.5 Allergy status to narcotic agent; Z88.8 Allergy status to other drugs, medicaments and biological substances
CPT/HCPCS: 96365; J0696

== ENCOUNTER 2020-01-29 15:38 | Outpatient (CLI) | payer MEDICARE ==
[~2020-01-29] VITALS: Ht 177.8 cm; Wt 69.0 kg
[2020-01-29 15:51] VITALS: BP 157/83
[2020-01-29 16:35] VITALS: BP 127/74
== END 2020-01-29 16:39 | disposition home or self-care (01) ==
LOC: M INFU 15:38
PROVIDERS: ATTEND Internal Medicine Nephrology
DX: R78.81 Bacteremia (principal); Z88.1 Allergy status to other antibiotic agents; Z88.5 Allergy status to narcotic agent
CPT/HCPCS: 96365; J0696

== ENCOUNTER 2020-01-30 16:19 | Outpatient (CLI) | payer MEDICARE ==
[~2020-01-30] VITALS: Ht 182.9 cm; Wt 69.0 kg
[~2020-01-30 16:19] MED LIST changes: +cefTRIAXone SOD 2 GM in D5W MINI-BAG PLUS 50 ML IV ONE
[2020-01-30 16:30] VITALS: BP 139/78
[2020-01-30 17:29] VITALS: BP 125/61
== END 2020-01-30 17:32 | disposition home or self-care (01) ==
LOC: M INFU 16:19
PROVIDERS: ATTEND Internal Medicine Nephrology
DX: R78.81 Bacteremia (principal); Z88.1 Allergy status to other antibiotic agents; Z88.5 Allergy status to narcotic agent; Z88.8 Allergy status to other drugs, medicaments and biological substances
CPT/HCPCS: 11102; 11603; 11604; 12034; 88305; 96365; J0696

== ENCOUNTER → 2020-01-30 | Outpatient (REF) | payer MEDICARE ==
[~2020-01-30] MED LIST changes: -cefTRIAXone SOD 2 GM in D5W MINI-BAG PLUS 50 ML IV ONE
== END ==
LOC: M LAB REF 07:52
PROVIDERS: ATTEND Dermatology
DX: C44.612 Basal cell carcinoma of skin of right upper limb, including shoulder (principal); C44.619 Basal cell carcinoma of skin of left upper limb, including shoulder; L90.5 Scar conditions and fibrosis of skin; L57.8 Other skin changes due to chronic exposure to nonionizing radiation

== ENCOUNTER 2020-01-31 15:52 | Outpatient (CLI) | payer MEDICARE ==
[~2020-01-31] VITALS: Ht 177.8 cm; Wt 69.0 kg
[~2020-01-31 15:52] MED LIST changes: -cefTRIAXone SOD 2 GM in D5W MINI-BAG PLUS 50 ML IV ONE
[2020-01-31 16:00] VITALS: BP 143/85
[2020-01-31] MEDS ORDERED: cefTRIAXone SOD 2 GM in D5W MINI-BAG PLUS 50 ML IV ONE (16:00)
[2020-01-31 17:10] VITALS: BP 132/81
== END 2020-01-31 17:10 | disposition home or self-care (01) ==
LOC: M INFU 15:52
PROVIDERS: ATTEND Internal Medicine Nephrology
DX: R78.81 Bacteremia (principal); Z88.0 Allergy status to penicillin; Z88.1 Allergy status to other antibiotic agents; Z88.5 Allergy status to narcotic agent; Z88.8 Allergy status to other drugs, medicaments and biological substances
CPT/HCPCS: 96365; J0696

== ENCOUNTER 2020-02-01 15:39 | Outpatient (CLI) | payer MEDICARE ==
[~2020-02-01] VITALS: Ht 177.8 cm; Wt 69.0 kg
[~2020-02-01 15:39] MED LIST changes: +cefTRIAXone SOD 2 GM in D5W MINI-BAG PLUS 50 ML IV ONE
[2020-02-01 15:55] VITALS: BP 134/75
[2020-02-01 17:01] VITALS: BP 143/72
== END 2020-02-01 17:00 | disposition home or self-care (01) ==
LOC: M INFU 15:39
PROVIDERS: ATTEND Internal Medicine Nephrology
DX: R78.81 Bacteremia (principal); Z88.0 Allergy status to penicillin; Z88.1 Allergy status to other antibiotic agents; Z88.5 Allergy status to narcotic agent; Z88.8 Allergy status to other drugs, medicaments and biological substances
CPT/HCPCS: 96365; J0696

== ENCOUNTER 2020-02-07 12:10 | Inpatient (IN) | payer MEDICARE ==
[~2020-02-07] VITALS: Ht 172.7 cm; Wt 68.5 kg
[~2020-02-07 12:10] MED LIST changes: -cefTRIAXone SOD 2 GM in D5W MINI-BAG PLUS 50 ML IV ONE
[2020-02-07] MEDS ORDERED: NS 1,000 ML IV ONE (13:30)
[2020-02-07 14:40] LABS: BASO % 0.2 % (0.0-1.0); EOS % 0.6 % (0.0-3.0); HEMATOCRIT 38.5 % (42.0-52.0); HEMOGLOBIN 12.2 g/dl (13.5-17.5); LYMPH # 1.3 10^3/uL (1.5-5.0); LYMPH % 19.8 % (24.0-44.0); MEAN CORPUSCULAR HEMOGLOBIN 29.3 pg (27.0-33.0); MEAN CORPUSCULAR HGB CONC 31.7 g/dl (32.0-36.5); MEAN CORPUSCULAR VOLUME 92.5 fl (80.0-96.0); MONO # 0.6 10^3/uL (0.0-0.8); MONO % 8.6 % (0.0-5.0); NEUTROPHILS # 4.5 10^3/uL (1.5-8.5); NEUTROPHILS % 70.2 % (36.0-66.0); PLATELET COUNT, AUTOMATED 183 10^3/uL (150-450); RED BLOOD COUNT 4.16 10^6/uL (4.30-6.10); WHITE BLOOD COUNT 6.4 10^3/uL (4.0-10.0)
[2020-02-07 14:50] LABS: INR 1.15; PROTHROMBIN TIME 14.4 SECONDS (11.8-14.0)
[2020-02-07 15:21] LABS: BLOOD UREA NITROGEN 11 MG/DL (7-18); CALCIUM LEVEL 9.6 MG/DL (8.8-10.2); CARBON DIOXIDE LEVEL 30 MEQ/L (21-32); CHLORIDE LEVEL 104 MEQ/L (98-107); GLOMERULAR FILTRATION RATE > 60.0 (>42); GLUCOSE, FASTING 113 MG/DL (70-100); POTASSIUM SERUM 4.6 MEQ/L (3.5-5.1); SODIUM LEVEL 140 MEQ/L (136-145)
[2020-02-07] MEDS ORDERED: cefTRIAXone SOD 1 GM in D5W MINI-BAG PLUS 50 ML IV ONE (15:30)
--- NOTE | 2020-02-07 16:22 | REP ---
CHEST, TWO VIEWS: Two views of the chest are performed and compared to a prior study of 01/14/2020 as well as other prior exams. There is no acute infiltrate. Mild chronic interstitial prominence is stable. There is mild elevation of the right hemidiaphragm. The heart is upper limits of normal in size. There is mild calcification and tortuosity of the thoracic aorta. Mediastinal silhouette is unchanged. Metallic rods and screws are seen in the thoracic spine. There are degenerative changes of the spine. IMPRESSION: Stable chronic findings. No acute pulmonary disease. Electronically Signed by Fantasma Dunn MD 02/07/2020 04:25 P
--- NOTE | 2020-02-07 16:26 | REP ---
CT ABDOMEN AND PELVIS WITHOUT IV OR ORAL CONTRAST: HISTORY: Malaise. Possible UTI. Renal transplant patient. Comparison CT study January 17, 2020. CT FINDINGS: Preliminary digital electric tripper machine operator radiograph demonstrates air-filled loops of small and large bowel at the mid abdomen with some air in the rectum. There is stool overlying left inguinal soft tissues consistent with a previously noted left inguinal hernia. Spine fusion hardware is seen at the thoracolumbar junction. There is bibasilar fibrosis. Mild discoid atelectasis is seen in the right base. The previously noted pleural effusions have resolved. No focal hepatic or splenic lesion is seen. There are some splenic granulomatous calcifications. A small hiatal hernia is noted. Gallbladder is mildly distended and appears to contain sludge or noncalcified gravel-like stones. No adrenal lesion is seen. There are calcifications in the renal fossa bilaterally. The [place] kidneys are not otherwise visible. There is a right iliac fossa renal transplant. The right nephrostomy tube in the transplanted kidney is in good position today in the renal pelvis. It was partially dislodged previously. There is a cyst in the renal transplant anteriorly which contains a calcific density. This cyst is unchanged measuring 2.4 cm in diameter. There is another intrarenal calculus in the transplant kidney lower pole and yet a third in the upper pole region. There is a UPJ calculus in the transplant kidney just below the nephrostomy tube. This calculus measures 8 mm. No bladder calculus is seen. The patient is status post ventral hernia repair. Left inguinal hernia containing unobstructed loop of sigmoid colon is again seen. Nonspecific large and small bowel loops containing air and some fluid. These are prominently large bowel. No evidence of obstruction. Dorsal paraspinal hematoma seroma cavity versus at the L3 through L5 level unchanged. IMPRESSION: The nephrostomy tube in the transplant kidney in the right fossa has been repositioned and is seen in good position. There is intrarenal nephrolithiasis in the right transplant kidney and there is an 8 mm calculus in the proximal ureter in the right kidney. There is a left inguinal hernia containing an unobstructed loop of sigmoid colon. The gallbladder is mildly distended. The recently identified pleural effusions have resolved. Chronic dorsal paraspinal hematoma seroma cavity persists unchanged measuring up to a 8 cm in craniocaudal span. Electronically Signed by Vadim Warner MD 02/07/2020 04:40 P
[2020-02-07] MEDS ORDERED: PERCOCET 5MG/325MG TAB PO ONE (16:45)
[2020-02-07] MEDS ORDERED: MEROPENEM INJ 1 GM in IV 1 EA IV ONE (17:15)
[2020-02-07] MEDS ORDERED: TORS20TA2 PO (17:32)
[2020-02-07] MEDS ORDERED: PERCOCET 5MG/325MG TAB PO SCH (18:00)
[2020-02-07] MEDS ORDERED: MIRALAX *UNIT DOSE* 17GM PACKET PO PRN (19:00)
[2020-02-07] MEDS ORDERED: hydrOXYzine 25 MG TAB PO PRN (19:00)
[2020-02-07] MEDS ORDERED: diazePAM 2 MG TAB PO PRN (19:00)
[2020-02-07] MEDS ORDERED: ACETAMINOPHEN 325 MG TAB PO PRN (19:00)
[2020-02-07] MEDS ORDERED: ONDANSETRON 4 MG TAB PO PRN (19:00)
[2020-02-07] MEDS ORDERED: DOCUSATE SODIUM 100 MG CAP PO PRN (19:00)
[2020-02-07 20:03] LABS: INR 1.16; PROTHROMBIN TIME 14.5 SECONDS (11.8-14.0)
[2020-02-07] MEDS ORDERED: K-PHOS NEUTRAL 250MG TABLET (SOD.PHOSPHATE/POT.PHOSPHATE) PO SCH (21:00)
[2020-02-07] MEDS: **NOTE PATIENT COMMENT** MISC XX SCH (21:00)
--- NOTE | 2020-02-07 21:39 | HPE ---
DATE OF ADMISSION: 02/07/2020 CHIEF COMPLAINT: Muscle aches. HISTORY OF THE PRESENT ILLNESS: This is a 75-year-old male with a history of end-stage renal disease, status post renal transplant in 2006, atrial fibrillation, hypertension, compression fractures, multiple back surgeries, obstructive calculi requiring nephrostomy tube and nephrostomy tube exchange with previous admissions for sepsis due to urinary tract infection (UTI) from Enterobacter. Had completed his last dose of IV ceftriaxone infusion last Tuesday, felt well and on Tuesday walked about a half a mile, felt great walking about 30 laps with his walker, to and from the house, about 50 feet. Patient then noticed into later on Tuesday that he had body aches and muscle aches, most notably in bilateral arms, back. He felt much more lethargic, had taken oxycodone 1-1/2 tablets every 6 hours. He had not noted any fever. He saw Dr. Vargas yesterday, who is the principal network architect who had done a skin biopsy, and told him that he was hurting all over. Dr. Vargas, his principal network architect, told him to come to the hospital, but he said he could not come yesterday and decided to come in first thing this morning. During his visit with Dr. Vargas, his temperature was 100.1. Ten minutes after, he asked the nurse to recheck and it was 98. Patient had his nephrostomy tube changed last Tuesday. His temperature at that time was 98.6. He had not noticed any cloudiness or malodorous urine as he has been emptying out his urostomy bag. He has not noted any chills, but felt a lot of body aches. In the emergency room (ER), he was found to have a temperature of 100.4 times two, white count was normal. Lactic acid was normal. Urinalysis showed 3+ leukocyte esterase, 57 WBCs, and 1+ bacteria. Urine culture, blood cultures had been sent. Repeat CT abdomen showed nephrostomy tube in the transplant kidney in the right fossa, repositioned and in good position, intrarenal nephrolithiasis in the right transplant kidney, and an 8 mm calculus proximal ureter of the right kidney, left inguinal hernia containing unobstructed loop of sigmoid colon. Gallbladder is mildly distended. Recent identified pleural effusions have resolved. Chronic dorsal paraspinal hematoma seroma cavity persists and unchanged in the craniocaudal span of 8 cm. Hospitalist was asked to admit for complicated urinary tract infection (UTI) due to retained stones with right-sided nephrostomy in a transplanted kidney. PAST MEDICAL HISTORY: Renal transplant 2006. Atrial fibrillation. Hypertension. Compression fractures. Multiple back surgeries. UTI with Enterobacter, sepsis and bacteremia due to Enterobacter. Nephrostomy tube placement on the right. PAST SURGICAL HISTORY: Arteriovenous (AV) fistula graft placement on the left. Hernia repair surgeries. Spinal surgery. Renal allograft surgery. ALLERGIES: QUINOLONE, PENICILLIN, CEFUROXIME, CODEINE, LORAZEPAM, PREGABALIN, TIZANIDINE. HOME MEDICATIONS: The patient had completed IV ceftriaxone as an infusion previously. Last dose was Tuesday. CURRENT HOME MEDICATIONS: - acetaminophen 650 mg every 4 hours as needed - amiloride 5 mg daily - aspirin 81 mg daily - azathioprine 100 mg daily - calcitriol 0.25 mcg five times a week - cyclobenzaprine 10 mg twice a day as needed - diazepam 2 mg three times a day as needed for anxiety - digoxin 125 mcg daily - Colace 100 mg daily as needed - Cymbalta 30 mg daily - gabapentin 600 mg three times a day - hydroxyzine 50 mg nightly as needed for insomnia - Lidoderm patch daily - magnesium gluconate six tablets by mouth twice a day - Zofran 4 mg by mouth three times a day - oxycodone 1-1/2 tablets every 6 hours - MiraLAX 17 grams nightly as needed - prednisone 5 mg daily - Senokot 17.2 mg nightly - sodium phosphate di mono potassium phosphate neutral tablet two tablets twice a day - torsemide 10 mg daily - vitamin B complex one daily - warfarin 3 mg nightly - melatonin 10 mg daily - Icy Hot cream as needed - Rapamune 2 mg daily SOCIAL HISTORY: Lives with his at home, 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 Walks with a walker. Denies alcohol or smoking history. Denies illicit drug use. FAMILY HISTORY: Father of heart failure at the age of 85, had CVA, diabetes. Mother ae 91 of old age, had a hip fracture. Patient does not speak with his two brothers, one at the age of 72, possible CVA. Older brother with kidney problems, still alive, 2 years older than he is currently, possibly 78 years old. REVIEW OF SYSTEMS: Per history of the present illness. 12-point system otherwise negative. PHYSICAL EXAMINATION: Vital Signs: Temperature 98.5, maximum temperature (T max) 100.4, pulse 90, respiratory rate 17, blood pressure 121/82, 96% on room air. Generally, patient is awake, alert, oriented times three, answering questions appropriately, no conversational dyspnea. No use of respiratory accessory muscles. Patient has a cervical collar. He has multiple ecchymotic areas bilateral upper extremities. No use of respiratory accessory muscles. Lungs are clear to auscultation. No wheezing, rales or rhonchi. Heart: S1, S2, irregularly irregular. Abdomen is soft, nontender, nondistended. Urostomy has cloudy urine. Extremities: No cyanosis, clubbing or pitting edema. LABORATORY DATA: White count 6.4, hemoglobin 12, hematocrit 38, platelet count 183. Sodium 140, potassium 4.6, chloride 104, bicarbonate 30, BUN 11, creatinine 0.7, glucose of 113, INR 1.15, digoxin 1.0. ASSESSMENT AND PLAN: This is a 75-year-old male with a history of transplanted kidney on the right secondary to obstructive recurrent urolithiasis with retained stones requiring nephrostomy tube placement, sepsis secondary to UTI from Enterobacter, returns with body aches, as well as fever 100.7. Patient is admitted for a UTI secondary to retained stone with nephrostomy tube. IMPRESSION: 1. Urinary tract infection. Currently on meropenem. Patient completed IV ceftriaxone last Tuesday, said that he felt well until recently. Blood cultures, urine culture have been checked. Patient will be continued on his home medications. 2. Transplanted kidney, on Imuran and Rapamune. Nephrology has been consulted. He is on chronic prednisone for chronic immunosuppression. 3. Atrial fibrillation, on chronic warfarin, which we may continue. Continue with checking serial INRs. 4. Deep vein thrombosis (DVT) prophylaxis. Continue on Coumadin. MTDD
[2020-02-07 22:00] VITALS: BP 120/86
--- NOTE | 2020-02-07 22:19 | ECGEPIP ---
[facility] - ED Test Date: 2020-02-07 Pat Name: ELDA JACOBSEN Department: Room: - Gender: Male Project Administrative Assistant: : [id number] Requested By: AARON AMAYA PA-C. Order Number: [id number] Reading MD: Chuck Vázquez Measurements Intervals [place] Rate: 76 P: IA: 0 QRS: -58 QRSD: 96 T: 5 QT: 358 QTc: 403 Interpretive Statements ATRIAL FIBRILLATION LEFT ANTERIOR FASCICULAR BLOCK MODERATE VOLTAGE CRITERIA FOR LVH, CONSIDER NORMAL VARIANT ANTEROSEPTAL MYOCARDIAL INFARCTION, OF INDETERMINATE AGE SIMILAR TO 01/14/20 Electronically Signed on 02-07-2020 22:19:06 EDT by Chuck Vázquez
[2020-02-07] MEDS: WARFARIN SOD 3 MG TAB PO SCH (22:44)
[2020-02-07] MEDS: K-PHOS NEUTRAL 250MG TABLET (SOD.PHOSPHATE/POT.PHOSPHATE) PO SCH (22:45)
[2020-02-07] MEDS: SENNA 8.6 MG TAB (SENOKOT) PO SCH (22:45)
[2020-02-07] MEDS: MAGNESIUM GLUCONATE 500 MG TAB PO SCH (22:45)
[2020-02-07] MEDS: GABAPENTIN 300 MG CAP PO SCH (22:45)
[2020-02-08] MEDS: PERCOCET 5MG/325MG TAB PO SCH ×4 (00:13→18:10)
[2020-02-08] MEDS: MEROPENEM INJ 1 GM in IV 1 EA IV SCH ×3 (01:10→17:08)
[2020-02-08] MEDS ORDERED: RAMELTEON 8 MG TAB (ROZEREM) PO ONE (01:15)
[2020-02-08 06:00] VITALS: BP 125/69
[2020-02-08 07:17] LABS: BASO % 0.2 % (0.0-1.0); EOS # 0.2 10^3/uL (0.0-0.5); EOS % 2.7 % (0.0-3.0); HEMATOCRIT 35.4 % (42.0-52.0); HEMOGLOBIN 10.8 g/dl (13.5-17.5); LYMPH # 2.3 10^3/uL (1.5-5.0); LYMPH % 40.8 % (24.0-44.0); MEAN CORPUSCULAR HEMOGLOBIN 28.3 pg (27.0-33.0); MEAN CORPUSCULAR HGB CONC 30.5 g/dl (32.0-36.5); MEAN CORPUSCULAR VOLUME 92.9 fl (80.0-96.0); MONO # 0.7 10^3/uL (0.0-0.8); MONO % 13.4 % (0.0-5.0); NEUTROPHILS # 2.3 10^3/uL (1.5-8.5); NEUTROPHILS % 42.2 % (36.0-66.0); PLATELET COUNT, AUTOMATED 189 10^3/uL (150-450); RED BLOOD COUNT 3.81 10^6/uL (4.30-6.10); WHITE BLOOD COUNT 5.5 10^3/uL (4.0-10.0)
[2020-02-08 07:45] LABS: BLOOD UREA NITROGEN 11 MG/DL (7-18); CALCIUM LEVEL 9.6 MG/DL (8.8-10.2); CARBON DIOXIDE LEVEL 29 MEQ/L (21-32); CHLORIDE LEVEL 105 MEQ/L (98-107); CPK CREATINE PHOSPHOKINASE 54 U/L (39-308); GLOMERULAR FILTRATION RATE > 60.0 (>42); GLUCOSE, FASTING 123 MG/DL (70-100); SODIUM LEVEL 142 MEQ/L (136-145)
[2020-02-08] MEDS ORDERED: PREVNAR 13 VACCINE SYRINGE (CPT CODE:90670) IM ONE (09:00)
[2020-02-08] MEDS ORDERED: MORPHINE 2 MG/ML 1ML VIAL (J2270) IV ONE (09:30)
[2020-02-08] MEDS: ASPIRIN 81 MG ENTERIC TAB PO SCH (10:23)
[2020-02-08] MEDS: GABAPENTIN 300 MG CAP PO SCH ×3 (10:24→20:45)
[2020-02-08] MEDS: MAGNESIUM GLUCONATE 500 MG TAB PO SCH ×2 (10:24→20:45)
[2020-02-08] MEDS: TORSEMIDE 10 MG TABLET PO SCH (10:27)
[2020-02-08] MEDS: DIGOXIN 0.125 MG TAB PO SCH (10:27)
[2020-02-08] MEDS: predniSONE 5 MG TAB PO SCH (10:28)
[2020-02-08] MEDS: RAPAMUNE PO SCH (10:28)
[2020-02-08] MEDS: K-PHOS NEUTRAL 250MG TABLET (SOD.PHOSPHATE/POT.PHOSPHATE) PO SCH ×2 (10:28→20:45)
[2020-02-08] MEDS: VITAMIN B COMPLEX/VIT C CAP PO SCH (10:28)
[2020-02-08] MEDS: azaTHIOprine 50 MG TAB (J7500) PO SCH (10:28)
[2020-02-08] MEDS: aMILoride 5 MG TAB PO SCH (10:28)
[2020-02-08] MEDS: CALCITRIOL 0.25 MCG CAP (S0169) PO SCH (10:28)
[2020-02-08] MEDS: DULoxetine 30 MG CAP (CYMBALTA) PO SCH (10:29)
[2020-02-08 11:41] LABS: INR 1.27; PROTHROMBIN TIME 15.6 SECONDS (11.8-14.0)
[2020-02-08 14:00] VITALS: BP 125/85
--- NOTE | 2020-02-08 14:05 | IPNPDOC ---
Date Seen The patient was seen on 02/08/20. Progress Note CHRONIC AFIB-resumed on warfarin. check serial INR. will adjust dose if needed. SECONDARY HYPERPARATHYROIDISM-resumed home meds. VS, I&O, 24H, Fishbone Vital Signs/I&O Vital Signs Date Time Temp Pulse Resp B/P (MAP) Pulse Ox O2 Delivery O2 Flow Rate FiO2 02/08/20 12:22 18 02/08/20 10:27 76 02/08/20 06:50 Room Air 02/08/20 06:00 98.5 125/69 (87) 100 I&O- Last 24 Hours up to 6 AM 02/08/20 06:00 Intake Total 2550 ml Output Total 625 ml Balance 1925 ml Laboratory Data 24H LABS Laboratory Tests 2 02/07/20 14:20: Urine Color SANDEEP, Urine Appearance CLOUDYH, Urine pH 6.0, Urine Specific [place] 1.009, Urine Protein 1+H, Urine Glucose (UA) NEGATIVE, Urine Ketones NEGATIVE, Urine Blood NEGATIVE, Urine Nitrite NEGATIVE, Urine Bilirubin NEGATIVE, Urine Urobilinogen 0.2, Urine Leukocyte Esterase 3+H, Urine WBC (Auto) 57H, Urine RBC (Auto) 10H, Urine Hyaline Casts (Auto) 4, Urine Bacteria (Auto) 1+H, Urine Squamous Epithelial Cells 0, Urine Mucus (Auto) SMALL, Urine Sperm (Auto) 02/07/20 19:13: Coronavirus (COVID-19)(PCR) NEGATIVE 02/07/20 19:34: Prothrombin Time 14.5H, Prothromb Time International Ratio 1.16 02/08/20 06:34: Immature Granulocyte % (Auto) 0.7, Neutrophils (%) (Auto) 42.2, Lymphocytes (%) (Auto) 40.8, Monocytes (%) (Auto) 13.4H, Eosinophils (%) (Auto) 2.7, Basophils (%) (Auto) 0.2, Neutrophils # (Auto) 2.3, Lymphocytes # (Auto) 2.3, Monocytes # (Auto) 0.7, Eosinophils # (Auto) 0.2, Basophils # (Auto) 0.0, Nucleated Red Blood Cells % (auto) 0.0, Anion Gap 8, Glomerular Filtration Rate > 60.0, Calcium Level 9.6, Total Creatine Kinase 54 02/08/20 11:13: Prothrombin Time 15.6H, Prothromb Time International Ratio 1.27 CBC/BMP Laboratory Tests 02/08/20 06:34 Microbiology Microbiology 02/07/20 Respiratory Virus Panel (PCR) (VAL) - Final, Complete 02/07/20 Blood Culture, Received Pending 02/07/20 Urine Culture - Final, Complete 02/07/20 Blood Culture - Preliminary, Resulted No growth after 24 hours . All specim... MARIA DEL CARMEN CAMPBELL MD February 08, 2020 14:05
[2020-02-08] MEDS ORDERED: LIDOCAINE 1% MDV 20ML VIAL As Ordered ONE (14:29)
--- NOTE | 2020-02-08 15:17 | REP ---
ULTRASOUND-GUIDED ABSCESS DRAIN The procedure was performed under the direct supervision of Dr. Dunn. The patient has a history of a dorsal paraspinal hematoma from the L3-L5 level seen on a previous CT scan dated 02/07/2020. The risks and benefits of the procedure were explained to the patient and informed consent was obtained. The paraspinal hematoma was localized using ultrasound guidance. The skin was prepped and draped in a sterile fashion. 1% lidocaine was used as a local anesthetic. Using ultrasound guidance a 5-Belgian centesis catheter was inserted using trocar technique. 90 ml of low viscosity red colored fluid was withdrawn and sent to the lab for analysis. The patient tolerated the procedure well and there were no immediate complications. After the appropriate amount of monitored convalescence the patient was discharged from the department. Electronically Signed by СЕРГЕЙ Blas 02/08/2020 03:04 P Electronically Signed by Fantasma Dunn MD 02/08/2020 03:08 P
[2020-02-08] MEDS: MORPHINE 4 MG/ML 1ML VIAL/SYRINGE (J2270) IV PRN (17:09)
[2020-02-08 19:33] LABS: APPEARANCE, BODY FLUID TURBID
[2020-02-08 20:09] VITALS: BP 105/68
[2020-02-08] MEDS: WARFARIN SOD 3 MG TAB PO SCH (20:44)
[2020-02-08] MEDS: SENNA 8.6 MG TAB (SENOKOT) PO SCH (20:45)
[2020-02-08] MEDS: **NOTE PATIENT COMMENT** MISC XX SCH (20:46)
--- NOTE | 2020-02-08 21:30 | IPN ---
DATE: 02/08/2020 Patient complains of severe pain yesterday rated at 10/10 despite his hydrocodone, which has been continued at 1-1/2 tablets every 6 hours. Patient complained of insomnia, unable to sleep due to severe pain yesterday in the flank. No diarrhea, nausea, vomiting. Continues to have body aches and muscle aches in bilateral upper extremities. Maximum temperature (T max) of 100.4, current temperature 98.5, pulse 76, respiratory rate 18, blood pressure is 125/69, saturating 100% on room air. Generally, patient is awake, alert, oriented times three. Anicteric sclerae. No jaundice/icterus. Pupils round and reactive. Extraocular muscles are intact. Dry mucous membranes. Patient has a collar around his neck. No conversational dyspnea. No use of respiratory accessory muscles. Lungs are clear to auscultation. No wheezing, rales or rhonchi. Heart: S1, S2, irregularly irregular. Abdomen is soft, nontender, nondistended. Urostomy in place. No erythema around the area. Patient does have multiple well-healed scars on the back with a mobile sacral nontender spinal seroma. LABORATORY DATA: White count 5.5, hemoglobin 10, hematocrit 35, platelet count 189. Sodium 142, potassium 4, chloride 105, bicarbonate 29, BUN 11, creatinine 0.7, glucose of 123. Blood culture pending. Urine culture 02/07/2020: No growth. Respiratory panel negative. COVID-19 negative. IMAGING STUDIES: Chest x-ray, 02/07/2020: Stable chronic findings. No acute pulmonary disease. CT abdomen and pelvis: Nephrostomy tube in the transplant kidney in the right fossa has been repositioned and seen in good position. There is intrarenal nephrolithiasis in the right transplant kidney. There is an 8 mm calculus in the proximal ureter in the right kidney. There is a left inguinal hernia containing an obstructive loop of sigmoid colon. Gallbladder is mildly distended. 1. Complicated Urinary tract infection in the setting of nephrostomy tube due to recurrent UTIs with a transplanted kidney. Currently on meropenem. Patient completed IV ceftriaxone last week, said that he felt well until recently. Blood cultures, urine culture have been checked. Patient will be continued on his home medications. ID consulted. 2. Transplanted kidney, on Imuran and Rapamune. Nephrology has been consulted. He is on chronic prednisone for chronic immunosuppression. 3. Atrial fibrillation, on chronic warfarin, which we may continue. Continue with checking serial INRs. 4. Dorsal paraspinal seroma incision and drainage per ID recommendations. follow culture results and await sensitivities Deep vein thrombosis (DVT) prophylaxis. Continue on Coumadin. MTDD
[2020-02-09] MEDS: MEROPENEM INJ 1 GM in IV 1 EA IV SCH ×3 (00:17→15:55)
[2020-02-09] MEDS: PERCOCET 5MG/325MG TAB PO SCH ×4 (00:18→17:59)
[2020-02-09] MEDS: RAMELTEON 8 MG TAB (ROZEREM) PO PRN (01:20)
[2020-02-09 06:35] VITALS: BP 114/60
[2020-02-09 08:22] LABS: BASO % 0.2 % (0.0-1.0); EOS # 0.2 10^3/uL (0.0-0.5); EOS % 2.5 % (0.0-3.0); HEMOGLOBIN 10.5 g/dl (13.5-17.5); LYMPH % 33.4 % (24.0-44.0); MEAN CORPUSCULAR HEMOGLOBIN 28.3 pg (27.0-33.0); MEAN CORPUSCULAR HGB CONC 30.9 g/dl (32.0-36.5); MEAN CORPUSCULAR VOLUME 91.6 fl (80.0-96.0); MONO # 0.8 10^3/uL (0.0-0.8); MONO % 14.2 % (0.0-5.0); NEUTROPHILS # 2.9 10^3/uL (1.5-8.5); NEUTROPHILS % 49.2 % (36.0-66.0); PLATELET COUNT, AUTOMATED 167 10^3/uL (150-450); RED BLOOD COUNT 3.71 10^6/uL (4.30-6.10); WHITE BLOOD COUNT 5.9 10^3/uL (4.0-10.0)
[2020-02-09 08:33] LABS: BLOOD UREA NITROGEN 11 MG/DL (7-18); CARBON DIOXIDE LEVEL 29 MEQ/L (21-32); CHLORIDE LEVEL 108 MEQ/L (98-107); CREATININE FOR GFR 0.63 MG/DL (0.70-1.30); GLOMERULAR FILTRATION RATE > 60.0 (>42); GLUCOSE, FASTING 105 MG/DL (70-100); SODIUM LEVEL 143 MEQ/L (136-145)
[2020-02-09 08:35] LABS: INR 1.74; PROTHROMBIN TIME 20.1 SECONDS (11.8-14.0)
[2020-02-09] MEDS ORDERED: PREVNAR 13 VACCINE SYRINGE (CPT CODE:90670) IM ONE (09:00)
[2020-02-09] MEDS: RAPAMUNE PO SCH (09:00)
[2020-02-09] MEDS: ASPIRIN 81 MG ENTERIC TAB PO SCH (10:04)
[2020-02-09] MEDS: MAGNESIUM GLUCONATE 500 MG TAB PO SCH ×2 (10:05→21:09)
[2020-02-09] MEDS: DULoxetine 30 MG CAP (CYMBALTA) PO SCH (10:05)
[2020-02-09] MEDS: GABAPENTIN 300 MG CAP PO SCH ×3 (10:05→21:08)
[2020-02-09] MEDS: azaTHIOprine 50 MG TAB (J7500) PO SCH (10:05)
[2020-02-09] MEDS: TORSEMIDE 10 MG TABLET PO SCH (10:07)
[2020-02-09] MEDS: aMILoride 5 MG TAB PO SCH (10:07)
[2020-02-09] MEDS: DIGOXIN 0.125 MG TAB PO SCH (10:07)
[2020-02-09] MEDS: K-PHOS NEUTRAL 250MG TABLET (SOD.PHOSPHATE/POT.PHOSPHATE) PO SCH ×2 (10:08→21:09)
[2020-02-09] MEDS: VITAMIN B COMPLEX/VIT C CAP PO SCH (10:08)
[2020-02-09] MEDS: predniSONE 5 MG TAB PO SCH (10:08)
[2020-02-09] MEDS ORDERED: ONDANSETRON 4MG/2ML VIAL IV PRN (10:30)
[2020-02-09] MEDS: NS 1,000 ML IV SCH (10:53)
[2020-02-09] MEDS: MORPHINE 4 MG/ML 1ML VIAL/SYRINGE (J2270) IV PRN ×2 (10:53→22:41)
[2020-02-09] MEDS ORDERED: ONDANSETRON 4MG/2ML VIAL IV ONE (11:00)
[2020-02-09] MEDS: LIDOCAINE 5% (LIDODERM) PATCH TOP PRN (11:09)
[2020-02-09 11:13] VITALS: BP 113/63
--- NOTE | 2020-02-09 11:47 | CR ---
DATE OF CONSULTATION: 02/08/2020 Asked to consult by Dr. Davis for evaluation of recurrent fever in a patient with renal transplant and recurrent urinary tract infection. Mr. Kwon is a 75-year-old gentleman with a history of end-stage renal disease, status post renal transplant in 2006 from IgA nephropathy who has been treated for recurrent urinary tract infection for the past 6 months. The patient was recently on hospitalized on 01/15/2020 with fever, leukocytosis of 14.9 and positive blood cultures for Enterobacter cloacae with a positive urine culture. The patient had a right percutaneous nephrostomy tube that had dislodged in his transplanted kidney that was replaced by Dr. Quach. He was discharged home on Levaquin. According to the patient, it did not help him and therefore he was restarted on IV Rocephin on 01/23/2020 through the infusion unit. He finished his IV antibiotic on 02/01/2020. He was receiving 2 grams of Rocephin and received a total of 2 weeks of IV Rocephin and 4 days of Levaquin. The patient did well on the weekend, Tuesday and Tuesday, was able to walk and be outdoors then for the past couple of days he was having increasing body aches, muscle aches, especially the low back, the upper arms and neck area associated with low grade fever. He went to see Dr. Vargas, Dermatology for followup on squamous cell carcinoma biopsy. His temperature was 100.1. He refused admission at that point, went home, but due to worsening symptoms he came back to be hospitalized. The patient states he had some discomfort in the right lower quadrant but his right nephrostomy bag looks like it has clear urine. He denied any cloudiness or malodorous urine. He has increasing low back pain at the site of his previous back surgery for spinal stenosis where he has a seroma. He also complains of severe neck pain and headache. His past medical history is significant for end-stage renal disease, IgA nephropathy status post renal transplantation in 2006, history of hemodialysis prior to that, atrial fibrillation, hypertension, multiple compression fractures requiring surgery, including recent surgery that was done in May 2019 at [facility] where he presented with lower extremity weakness and decreased urinary stream. He had an L4-L5 laminectomy, transferred to acute rehab on 06/20/2020, where he was discharged on 07/06 rehabilitation. The patient states since that surgery he has had this bulge in his low back that has caused increasing pain. Urinary tract infection most recently with Enterobacter cloacae. Prior to that, he had erogenous and Staphylococcus warneri admission for urinary tract infection in October of 2018. Right nephrostomy tube in the transplanted kidney, nephrolithiasis that need to be surgically removed but patient was still waiting for his surgical clearance, severe aortic stenosis. History of right upper extremity deep venous thrombosis (DVT). PAST SURGICAL HISTORY: Arteriovenous (AV) fistula graft placement on the left, multiple hernia repairs, colonoscopy [place] [address] 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 Reed, July 2018 left medial meniscectomy by Dr. Gross, [facility] L4-L5 laminectomy May 2019. ALLERGIES: QUINOLONE, PENICILLIN, CEFUROXIME, CODEINE, LORAXEPAM, PREGABALIN, TIZANIDINE. MEDICATIONS: - Tylenol 650 mg every 4 as needed - amiloride 5 mg by mouth daily - aspirin 81 mg by mouth daily - azathioprine 100 mg by mouth daily - calcitriol 0.25 mcg five times a week - cyclobenzaprine 10 mg twice a day as needed - diazepam 2 mg three times a day as needed for anxiety - digoxin 125 mcg daily - Colace 100 mg daily as needed - Cymbalta 30 mg daily - gabapentin 600 mg three times a day - hydroxyzine 50 mg at bedtime as needed - Lidoderm patch daily - prednisone 5 mg by mouth daily - Senokot 1 tablet at bedtime - torsemide 10 mg by mouth daily - warfarin 3 mg by mouth daily - melatonin 10 mg by mouth at bedtime - Rapamune 2 mg daily - meropenem 1 gram intravenous every 8 hours - currently day #2 LABORATORY DATA: White count 5.5, hemoglobin 10.8, hematocrit 35.4, platelets 189, 42% neutrophils, 40% lymphocytes, 13% monocytes. Sodium 142, potassium 4, chloride 105, bicarbonate 29, BUN 11, creatinine 0.7, glucose 123, calcium 9.6, CPK 54. Digoxin 1. COVID negative. Urinalysis had 57 white cells. Urine culture was negative. Blood culture on 02/07/2020, two sets are negative so far. Respiratory panel is negative. IMAGING: Needle aspiration was done by Jordan Briceño, 90 mL of flow viscosity red-colored fluid was withdrawn and sent to the lab for analysis. That was drained from a dorsal paraspinal hematoma at L3-L4-L5. Chest x-ray: No acute pulmonary findings, two view PA and lateral, chronic interstitial changes. CT abdomen and pelvis done on 02/07/2020, nephrostomy tube in the transplanted kidney in the right fossa has been repositioned in good position. There is intrarenal nephrolithiasis in the right transplanted kidney, 8 mm calculus in the proximal ureter. Left inguinal hernia containing unobstructed loop of sigmoid colon. Gallbladder is slightly distended and a large dorsal paraspinal seroma measuring about 8 cm in length. On physical exam, he is a frail elderly gentleman, in no acute distress, seems to be in pain. Temperature is 100.2, pulse 80, respirations 16, oxygen saturation 96% on room air. Blood pressure 125/85. HEENT: Pupils are equal and reactive. Oropharynx is clear. He has poor dentition. He has poor teeth on the bottom and with some periodontal disease but there is no tenderness along the mandible. No lesions. Heart: Normal, S1, S2 with a systolic ejection murmur 2/6 at the left upper sternal border. Lungs: Clear. No wheezes, rales, or rhonchi. Abdomen is soft. Multiple surgical scars well healed midline with umbilical hernia. Right lower quadrant mild tenderness. Back: No costovertebral angle (CVA) tenderness. He has a large fluid bones along the paraspinal area measuring about 8-9 cm, soft. Neck: Stiff. He is in a neck brace. He has difficulty with neck movement. Extremities: Trace edema bilaterally. No clubbing or cyanosis. Skin: No rashes. Musculoskeletal Exam: He has a large scar in the cervical area where he had a discectomy. His neck is in a flexed position. Back: Large midline scar lumbar area with the paraspinal fluid. IMPRESSION: This is a 75-year-old gentleman status post renal transplant immunocompromised on Rapamune, prednisone, history of recurrent urinary tract infection, nephrolithiasis, has a nephrostomy tube, just recently finished a 2 week course of IV ceftriaxone for Enterobacter cloacae, bacteremia and with IV Rocephin. He presented within 5 days with recurrent fever mostly associated with generalized body aches, specifically neck pain, back pain and headache. The patient states that the paraspinal fluid collection has been there since his surgery over 6 months ago and has stayed the same size but he seems to have increasing pain at the site. He has improved with IV antibiotics, currently on meropenem 1 gram every 8 hours. Urine culture was negative. PLAN: Suggest aspiration of paraspinal fluid collection to make sure that it is not infected causing a source of nidus of infection. I will discuss the case with nephrology. I am not sure whether this is a postoperative seroma versus a cerebrospinal fluid (CSF) leak which puts him at of having chronic low grade meningitis. I am not sure of the details of that surgery. In the time being, he will go down to interventional radiology, under ultrasound guidance will have fluid aspirated and sent for aerobic, anaerobic cultures, cell count, gram stain, fungal, AFB smear and culture. Continue IV meropenem 1 gram every 8 hours.
[2020-02-09] MEDS: METOCLOPRAMIDE INJ 10MG/2ML VIAL (J2765 PER 1) IV SCH ×3 (12:33→21:08)
--- NOTE | 2020-02-09 13:38 | CR ---
DATE OF CONSULTATION: 02/08/2020 REQUESTING PHYSICIAN: Dr. Mary Davis. CONSULTING PHYSICIAN: Dr. Caballero. REASON FOR CONSULTATION: Management of immunosuppression in this patient with history of renal transplant and admission with sepsis. CHIEF COMPLAINT: The patient presented to the hospital yesterday with generalized body aches and pains and fevers with chills. HISTORY OF PRESENT ILLNESS: Mr. Chato Kwon is a 75-year-old male with past medical history of renal allograft status. He has a renal transplant in the right lower quadrant since 2006 and the patient has a stone in renal allograft ureter causing hydronephrosis and requiring percutaneous nephrostomy of the renal allograft which is complicated by recurrent urinary tract infection (UTI) and pyelonephritis. He was recently admitted with sepsis secondary to UTI from Enterobacter. He was discharged on IV antibiotics. He finished the IV ceftriaxone course of 1 week ago on Tuesday. He presented to the emergency room (ER) yesterday with generalized body aches and pains. He was feeling very weak. His pains are not relieved by the oxycodone medication pain medication that he was taking at home. He was found to have low grade temperatures in the emergency room maximum temperature (T-max) of 100.4 degrees Fahrenheit. Urinalysis showed that he had leukocyte esterase and elevated WBC count. Because of the immunocompromise status, the patient was discussed with myself by the ER physician and decision was made to admit the patient and start him on broad-spectrum IV antibiotic meropenem and repeat his urine and blood cultures. The patient was admitted under the hospitalist service. I saw and evaluated the patient this morning at the bedside. The patient reports that he is feeling much better today as compared with yesterday ever since the IV antibiotics were started. PAST MEDICAL HISTORY: Past medical history of renal allograft status is 2017. History of atrial fibrillation. Hypertension. Chronic pain syndrome. Multiple compression fractures in the spine. Multiple spine surgeries with severe osteoporosis. Chronic hypomagnesemia. Recurrent UTI and sepsis. Most recent episode was about 2 weeks ago. Percutaneous nephrostomy status in the renal allograft. Secondary hyperparathyroidism. PAST SURGICAL HISTORY: History of left arm AV fistula placement. History of hernia repair surgery. Spinal surgeries. Renal allograft since 2006. Percutaneous nephrostomy in the renal allograft. ALLERGIES: The patient is allergic to AMOXICILLIN, CEFUROXIME. CODEINE, DOXYCYCLINE LEVAQUIN LORAZEPAM, PREGABALIN TIZANIDINE. FAMILY HISTORY: No significant family history of end-stage renal disease requiring hemodialysis. SOCIAL HISTORY: The patient lives at home denies any smoking, illicit drug abuse or alcohol abuse. REVIEW OF SYSTEMS: CONSTITUTIONAL: Patient reported generalized weakness when he came in. EYES: He denies any blurry vision, double vision. ENT: Denies any dysphagia, odynophagia. CARDIOVASCULAR: Denies any chest pain or palpitation. RESPIRATORY: Denies any shortness of breath or cough. GASTROINTESTINAL (GI): Denies any nausea, vomiting. GENITOURINARY: He reports the percutaneous nephrostomy and renal allograft status. MUSCULOSKELETAL: He reported generalized muscle aches and pains when he presented. SKIN: He denies any rashes or ulcers. PSYCH: He denies any depression or anxiety. ENDOCRINE: Reports secondary hyperparathyroidism. Central nervous system (BUSINESS RECORDS MANAGER): He denies any strokes or seizures. He does report spinal stenosis. All other review of systems is negative. PHYSICAL EXAMINATION: GENERAL: The patient is awake, alert, oriented times three, laying in the bed. VITAL SIGNS: Temperature T-max is 100.4 degrees Fahrenheit, blood pressure is 105/68, pulse is 82, respiratory of 20, saturating 96% on room air. HEAD AND NECK EXAM: Patient is wearing a soft cervical collar. Pupils are equally round and reactive to light. Mucous membranes are moist. CARDIOVASCULAR: S1, S2, regular rate. Trace edema of the bilateral lower extremities. RESPIRATORY: Chest is clear to auscultation bilaterally. Bilateral equal air entry. No rales or rhonchi. ABDOMEN: Soft, positive bowel sounds. He has a right lower quadrant renal allograft which is slightly tender to deep palpation and a right-sided percutaneous nephrostomy in the renal allograft is noted and there is some debris in the urine in the bag. MUSCULOSKELETAL: No clubbing or cyanosis. BUSINESS RECORDS MANAGER: No focal deficit. Power is 5/5 in bilateral upper extremities. LABORATORY REVIEW: CBC showed WBC of 5.5, hemoglobin 10.8, platelets are 189, INR is 1.27. Urinalysis done on arrival showed it was cloudy with 1+ protein, 3+ leukocyte esterase, 57 WBCs and 10 RBCs. BMP showed sodium 142, potassium 4, chloride 105, bicarb 29, BUN 11, creatinine 0.7, lactic acid 0.7, calcium 9.6. Digoxin 1. Urine culture done on arrival is negative so far. Blood cultures negative so far. Respiratory: Viral panel is negative. IMAGING: A chest x-ray was done which showed no acute cardiopulmonary disease. A CT scan of the abdomen, pelvis was done yesterday which showed nephrostomy tube in the transplanted kidney in good position. Intrarenal left lower lithiasis in the right transplanted kidney in the proximal ureter. Left inguinal hernia, gallbladder is mildly distended. Chronic dorsal paraspinal hematoma or seroma cavity persistent which measures 8 cm. CURRENT INPATIENT MEDICATIONS: The patient's medications were all reviewed by myself. He is currently on meropenem 1 gram IV every 8 hours. He is on Tylenol as needed, amiloride 5 mg by mouth daily, aspirin 81 mg daily, [id number] mg by mouth daily, calcitriol 0.25 mcg by mouth Tuesday, Tuesday, Tuesday, , Tuesday. Flexeril 10 mg by mouth twice a day, diazepam 2 mg three times a day as needed anxiety, digoxin 0.15 mcg by mouth daily, Colace 100 mg by mouth daily, Cymbalta 30 mg by mouth daily, gabapentin 600 mg by mouth three times a day, Lidoderm patch, magnesium gluconate 3 grams by mouth twice a day, morphine sulfate 3 mg IV every 2 hours as needed severe pain, Zofran as needed, Percocet 1.5 tablets every 6 hours as needed, MiraLAX as needed, K-phos tablet 500 mg by mouth twice a day, prednisone 5 mg by mouth daily, Rozerem 8 mg by mouth nightly as needed insomnia, Senokot two tablets nightly, torsemide 10 mg by mouth daily, warfarin 3 mg by mouth nightly. ASSESSMENT: 75-year-old male with history of renal allograft status on immunosuppression, percutaneous nephrostomy status in the renal allograft, history of osteoporosis secondary hyperparathyroidism, depression, anxiety, chronic pain syndrome, admitted this time with fevers, chills and a recent outpatient treatment for Enterobacter urinary tract infection. PLAN: 1. Fevers, chills and generalized body aches. Urine culture is negative so far blood culture is pending. The patient was recently treated as outpatient. He is currently covered with broad-spectrum antibiotic IV meropenem. I discussed with infectious disease and they commended draining the paraspinal absence and sending it for cultures. Continue the antibiotic at this time. 2. Renal allograft status. The patient is currently on azathioprine, Imuran and prednisone. Continue the current immunosuppression at this time. 3. Atrial fibrillation: Heart rate is controlled. Continue digoxin and warfarin. 4. Chronic hypomagnesemia: Continue current dose amiloride 5 mg by mouth daily along with magnesium 3 grams by mouth twice a day. 5. Secondary hyperparathyroidism. Continue calcitriol 0.25 mcg Tuesday and Tuesday. 6. Chronic pain syndrome: Continue current dose of her Percocet, gabapentin. He is also getting as needed IV morphine injections. 7. Lower extremity edema: It is well controlled with current dose of torsemide continue current dose. 8. Anemia on chronic kidney disease: Hemoglobin level is 10.8 which is optimal. No need of MAEVE administration at this time. Thank you for involving me in the care of this patient. I shall be happy to follow the patient along with you tomorrow morning.
--- NOTE | 2020-02-09 13:44 | IPNPDOC ---
Date Seen The patient was seen on 02/09/20. Progress Note SUBJECTIVE: "I woke up alright, but I feel bad now." pt c/o nausea and didn't feel like eating much. he tolerated peaches this morning, but "I don't feel good." No fever, chills, abd pain, dysuria, urgency. Pt says nephrostomy tube has not drained much over the past 24hrs."I empty it out about 3x at night when I'm at home. " s/p drainage of dorsal paraspinal seroma yesterday with cultures pending. still on merem PHYSICAL EXAMINATION: Vital Signs: pls see below Generally, patient is awake, alert, oriented times three, answering questions appropriately, no conversational dyspnea. No use of respiratory accessory muscles. HEENT:Patient has a cervical collar.PERRL. EOMI. He has multiple ecchymotic areas bilateral upper extremities. No use of respiratory accessory muscles. Lungs are clear to auscultation. No wheezing, rales or rhonchi. Heart: S1, S2, irregularly irregular. Abdomen is soft, nontender, nondistended. Urostomy has cloudy urine. Extremities: No cyanosis, clubbing or pitting edema. skin: s/p aspiration of dorsal spinal seroma. multiple well healed scars. on back. LABORATORY DATA: pls see below MICROBIOLOGY: PLS see below IMAGING STUDIES: reviewed. ASSESSMENT AND PLAN: This is a 75-year-old male with a history of end-stage renal disease, status post renal transplant in 2006, atrial fibrillation, hypertension, compression fractures, multiple back surgeries, obstructive calculi requiring nephrostomy tube and nephrostomy tube exchange with previous admissions for sepsis due to urinary tract infection (UTI) from Enterobacter. Had completed his last dose of IV ceftriaxone infusion last Tuesday, felt well and on Tuesday walked about a half a mile, felt great walking about 30 laps with his walker, to and from the house, about 50 feet. Patient then noticed into later on Tuesday that he had body aches and muscle aches, most notably in bilateral arms, back. He felt much more lethargic, had taken oxycodone 1-1/2 tablets every 6 hours. He had not noted any fever. He saw Dr. Vargas , ferruler who had done a skin biopsy, and told him to come to the hospital.He had not noticed any cloudiness or malodorous urine as he has been emptying out his urostomy bag. He has not noted any chills, but felt a lot of body aches. In the emergency room (ER), he was found to have a temperature of 100.4 times two, white count was normal. Lactic acid was normal. Urinalysis showed 3+ leukocyte esterase, 57 WBCs, and 1+ bacteria. Urine culture, blood cultures had been sent.Repeat CT abdomen showed nephrostomy tube in the transplant kidney in the right fossa, repositioned and in good position, intrarenal nephrolithiasis in the right transplant kidney, and an 8 mm calculus proximal ureter of the right kidney, left inguinal hernia containing unobstructed loop of sigmoid colon. Gallbladder is mildly distended. Recent identified pleural effusions have resolved. Chronic dorsal paraspinal hematoma seroma cavity persists and unchanged in the craniocaudal span of 8 cm.Hospitalist was asked to admit for complicated urinary tract infection (UTI) due to retained stones with right-sided nephrostomy in a transplanted kidney. 1. Complicated Urinary tract infection. Currently on meropenem. Patient completed IV ceftriaxone last week, said that he felt well until recently. Blood cultures, urine culture have been checked. Patient will be continued on his home medications. ID consulted. 2. Transplanted kidney, on Imuran and Rapamune. Nephrology has been consulted. He is on chronic prednisone for chronic immunosuppression. 3. Atrial fibrillation, on chronic warfarin, which we may continue. Continue with checking serial INRs. 4. Dorsal paraspinal seroma s/p incision and drainage 02/08/20 per ID recommendations. awaiting culture results. 5.Recurrent nausea. will monitor for dehydration. prn antiemetics. Deep vein thrombosis (DVT) prophylaxis. Continue on Coumadin. VS, I&O, 24H, Fishbone Vital Signs/I&O Vital Signs Date Time Temp Pulse Resp B/P (MAP) Pulse Ox O2 Delivery O2 Flow Rate FiO2 02/09/20 12:34 18 02/09/20 11:13 66 113/63 (80) Room Air 02/09/20 06:35 97.0 95 I&O- Last 24 Hours up to 6 AM 02/09/20 06:00 Intake Total 1190 ml Output Total 1500 ml Balance -310 ml Laboratory Data 24H LABS Laboratory Tests 2 02/08/20 13:49: Body Fluid Source OTHER, Body Fluid Color RED, Body Fluid Appearance TURBID, Body Fluid WBC (Auto) 371H, Body Fluid RBC (Auto) 424, Body Fluid Mononuclear Cells % Auto 83.9H, Fluid Polymorphonuclear Cell % Auto 16.1H 02/08/20 15:00: 02/09/20 07:53: Immature Granulocyte % (Auto) 0.5, Neutrophils (%) (Auto) 49.2, Lymphocytes (%) (Auto) 33.4, Monocytes (%) (Auto) 14.2H, Eosinophils (%) (Auto) 2.5, Basophils (%) (Auto) 0.2, Neutrophils # (Auto) 2.9, Lymphocytes # (Auto) 2.0, Monocytes # (Auto) 0.8, Eosinophils # (Auto) 0.2, Basophils # (Auto) 0.0, Nucleated Red Blood Cells % (auto) 0.0, Prothrombin Time 20.1H, Prothromb Time International Ratio 1.74, Anion Gap 6L, Glomerular Filtration Rate > 60.0, Calcium Level 9.0 CBC/BMP Laboratory Tests 02/09/20 07:53 Microbiology Microbiology 02/08/20 Gram Stain - Final, Resulted 02/08/20 Abscess Culture, Resulted Pending 02/08/20 Acid Fast Stain, Received Pending 02/08/20 Mycobacterial Culture, Received Pending 02/08/20 Fungal Smear, Received Pending 02/08/20 Fungal Culture, Received Pending 02/07/20 Respiratory Virus Panel (PCR) (VAL) - Final, Complete 02/07/20 Blood Culture - Preliminary, Resulted No growth after 24 hours . All specim... 02/07/20 Urine Culture - Final, Complete 02/07/20 Blood Culture - Preliminary, Resulted No growth after 24 hours . All specim... MARIA DEL CARMEN CAMPBELL MD February 09, 2020 13:33
[2020-02-09 14:00] VITALS: BP 128/72
[2020-02-09] MEDS: **NOTE PATIENT COMMENT** MISC XX SCH (21:00)
[2020-02-09] MEDS: CYCLOBENZAPRINE 10MG TABLET PO PRN (21:08)
[2020-02-09] MEDS: SENNA 8.6 MG TAB (SENOKOT) PO SCH (21:08)
[2020-02-09] MEDS: WARFARIN SOD 3 MG TAB PO SCH (21:09)
[2020-02-10] MEDS: NS 1,000 ML IV SCH (01:24)
[2020-02-10] MEDS: MEROPENEM INJ 1 GM in IV 1 EA IV SCH ×3 (01:24→16:34)
[2020-02-10] MEDS: PERCOCET 5MG/325MG TAB PO SCH ×4 (01:25→17:15)
[2020-02-10] MEDS: RAMELTEON 8 MG TAB (ROZEREM) PO PRN ×2 (01:28→21:02)
[2020-02-10 05:37] LABS: EOS # 0.1 10^3/uL (0.0-0.5); EOS % 2.1 % (0.0-3.0); HEMATOCRIT 34.8 % (42.0-52.0); HEMOGLOBIN 10.7 g/dl (13.5-17.5); LYMPH # 2.2 10^3/uL (1.5-5.0); LYMPH % 40.9 % (24.0-44.0); MEAN CORPUSCULAR HEMOGLOBIN 28.6 pg (27.0-33.0); MEAN CORPUSCULAR HGB CONC 30.7 g/dl (32.0-36.5); MONO # 0.7 10^3/uL (0.0-0.8); MONO % 13.6 % (0.0-5.0); NEUTROPHILS # 2.3 10^3/uL (1.5-8.5); PLATELET COUNT, AUTOMATED 173 10^3/uL (150-450); RED BLOOD COUNT 3.74 10^6/uL (4.30-6.10); WHITE BLOOD COUNT 5.3 10^3/uL (4.0-10.0)
[2020-02-10 05:59] LABS: BLOOD UREA NITROGEN 12 MG/DL (7-18); CALCIUM LEVEL 8.9 MG/DL (8.8-10.2); CARBON DIOXIDE LEVEL 28 MEQ/L (21-32); CHLORIDE LEVEL 108 MEQ/L (98-107); CREATININE FOR GFR 0.64 MG/DL (0.70-1.30); GLOMERULAR FILTRATION RATE > 60.0 (>42); GLUCOSE, FASTING 89 MG/DL (70-100); SODIUM LEVEL 142 MEQ/L (136-145)
[2020-02-10 06:00] VITALS: BP 138/78
[2020-02-10] MEDS: METOCLOPRAMIDE INJ 10MG/2ML VIAL (J2765 PER 1) IV SCH ×4 (06:34→21:02)
--- NOTE | 2020-02-10 08:16 | IPN ---
DATE: 02/09/2020 Mr. Kwon is seen this morning on his bedside. He has complicated medical problems with prior history of end-stage renal disease, status post kidney transplant. He has a stone in his transplant kidney ureter for which he had a nephrostomy tube placed several months ago. Plan was to remove his nephrostomy tube after PC, however, it was delayed due to various problems including COVID-19. In any event he was recently admitted with urosepsis and treated with 2 weeks of IV antibiotic. He is now admitted again with worsening pains and aches and possible sepsis. His transplant kidney has been functioning very well and nephrostomy tube was replaced during this recent admission. This morning, he is not feeling well and reports worsening pain and nausea while he was feeling better yesterday. PHYSICAL EXAMINATION: Temperature 97 degrees Fahrenheit, heart rate 66 per minute and respiratory rate 18 per minute. Blood pressure 113/63 mmHg and oxygen saturation 95% on room air. His head is atraumatic. Neck: Supple and without jugular venous distention (JVD) or thyroid enlargement. He is edentulous with upper and lower dentures. Heart sounds are regular with systolic murmur grade 3/6 which is chronic and unchanged. Lungs sound clear to auscultation. Abdomen is soft and nontender. Bowel sounds are normal. Multiple old surgical scars from his hernia surgeries are present. Extremities have no cyanosis or clubbing. Neurologically he is awake, alert and at his baseline mentation. Today's labs show WBC count 5.9, hemoglobin 10.5 and hematocrit 34.0. Platelets 167, sodium 143, potassium 4.0, CO2 29, BUN 11 and creatinine 0.63, glucose 105 and calcium 9.0. Blood and urine cultures have been negative so far. His respiratory panel was also negative. He had a fluid collection drained from his lumbar area in the back and those cultures are still pending. PROBLEMS: 1. Kidney transplant status: Kidney function is stable and the patient will continue with his chronic immunosuppressive medications. He has been on [id number] mg daily, prednisone 5 mg daily and sirolimus 2 mg daily. The patient will continue his own sirolimus as it is not available in the hospital. 2. History of recurrent kidney stones with ureteral stone and status post transplant nephrostomy. Nephrostomy has been draining well and urine culture is negative. He was recently treated for urosepsis. At this point he will need to continue maintaining his nephrostomy tube until he is medically stable and cleared by cardiology for his surgery. 3. Degenerative arthritis and chronic disc disease. The patient had spinal reconstruction done with bilateral rods. He has chronic pains and aches related to degenerative arthritis and radiculopathy. He has been on gabapentin and Percocet as an outpatient which works reasonably well. 4. Sepsis: The patient remains on meropenem at present and being followed by infectious disease.
[2020-02-10] MEDS: ASPIRIN 81 MG ENTERIC TAB PO SCH (08:30)
[2020-02-10] MEDS: TORSEMIDE 10 MG TABLET PO SCH (08:30)
[2020-02-10] MEDS: RAPAMUNE PO SCH (08:30)
[2020-02-10] MEDS: DULoxetine 30 MG CAP (CYMBALTA) PO SCH (08:31)
[2020-02-10] MEDS: azaTHIOprine 50 MG TAB (J7500) PO SCH (08:31)
[2020-02-10] MEDS: MAGNESIUM GLUCONATE 500 MG TAB PO SCH ×2 (08:31→21:03)
[2020-02-10] MEDS: VITAMIN B COMPLEX/VIT C CAP PO SCH (08:31)
[2020-02-10] MEDS: GABAPENTIN 300 MG CAP PO SCH ×3 (08:31→21:03)
[2020-02-10] MEDS: aMILoride 5 MG TAB PO SCH (08:31)
[2020-02-10] MEDS: predniSONE 5 MG TAB PO SCH (08:31)
[2020-02-10] MEDS: K-PHOS NEUTRAL 250MG TABLET (SOD.PHOSPHATE/POT.PHOSPHATE) PO SCH ×2 (08:31→21:03)
[2020-02-10] MEDS: DIGOXIN 0.125 MG TAB PO SCH (08:32)
[2020-02-10] MEDS ORDERED: ACETAMINOPHEN TAB 650MG DOSE (2X325MG) PO PRN (10:30)
[2020-02-10] MEDS ORDERED: ANEXSIA, NORCO 7.5MG/325MG TABLET(HYDROCODONE/APAP) PO ONE (10:45)
--- NOTE | 2020-02-10 12:14 | IPNPDOC ---
Date Seen The patient was seen on 02/10/20. Progress Note SUBJECTIVE: afebrile. no white count. no recurrent nausea/vomiting. pt c/o 7/10 pain lower back where i&d done. no c/o dysuria. walked around floor with walker several times w/o dizziness, weakness, or muscle pain. PHYSICAL EXAMINATION: Vital Signs: pls see below Generally, patient is awake, alert, oriented times three, answering questions appropriately, no conversational dyspnea. No use of respiratory accessory muscles. HEENT:face is symmetric. Patient has a cervical collar.PERRL. EOMI. He has multiple ecchymotic areas bilateral upper extremities. No use of respiratory accessory muscles. Lungs are clear to auscultation. No wheezing, rales or rhonchi. Heart: S1, S2, irregularly irregular. Abdomen is soft, nontender, nondistended. Urostomy has cloudy urine. Extremities: No cyanosis, clubbing or pitting edema. skin: s/p aspiration of dorsal spinal seroma. multiple well healed scars. on back. LABORATORY DATA: pls see below MICROBIOLOGY: PLS see below IMAGING STUDIES: reviewed. ASSESSMENT AND PLAN: This is a 75-year-old male with a history of end-stage renal disease, status post renal transplant in 2006, atrial fibrillation, hypertension, compression fractures, multiple back surgeries, obstructive calculi requiring nephrostomy tube and nephrostomy tube exchange with previous admissions for sepsis due to urinary tract infection (UTI) from Enterobacter. Had completed his last dose of IV ceftriaxone infusion last Tuesday, felt well and on Tuesday walked about a half a mile, felt great walking about 30 laps with his walker, to and from the house, about 50 feet. Patient then noticed into later on Tuesday that he had body aches and muscle aches, most notably in bilateral arms, back. He felt much more lethargic, had taken oxycodone 1-1/2 tablets every 6 hours. He had not noted any fever. He saw Dr. Vargas , mixed crop and livestock farm worker who had done a skin biopsy, and told him to come to the hospital.He had not noticed any cloudiness or malodorous urine as he has been emptying out his urostomy bag. He has not noted any chills, but felt a lot of body aches. In the emergency room (ER), he was found to have a temperature of 100.4 times two, white count was normal. Lactic acid was normal. Urinalysis showed 3+ leukocyte esterase, 57 WBCs, and 1+ bacteria. Urine culture, blood cultures had been sent.Repeat CT abdomen showed nephrostomy tube in the transplant kidney in the right fossa, repositioned and in good position, intrarenal nephrolithiasis in the right transplant kidney, and an 8 mm calculus proximal ureter of the right kidney, left inguinal hernia containing unobstructed loop of sigmoid colon. Gallbladder is mildly distended. Recent identified pleural effusions have resolved. Chronic dorsal paraspinal hematoma seroma cavity persists and unchanged in the craniocaudal span of 8 cm.Hospitalist was asked to admit for complicated urinary tract infection (UTI) due to retained stones with right-sided nephrostomy in a transplanted kidney. 1. Complicated Urinary tract infection in the setting of a transplanted kidney due to recurrent nephrolithiasis .Currently on meropenem. Patient completed IV ceftriaxone last week, said that he felt well until recently. Blood cultures, urine culture reviewed.Patient will be continued on his home medications. ID consulted. 2. Transplanted kidney, on Imuran and Rapamune. Nephrology has been consulted. He is on chronic prednisone for chronic immunosuppression. 3. Atrial fibrillation, on chronic warfarin, which we may continue. Continue with checking serial INRs. 4. Dorsal paraspinal seroma s/p incision and drainage 02/08/20 per ID recommendations. culture: no organism. negative. 5.Recurrent nausea. will monitor for dehydration. prn antiemetics. Deep vein thrombosis (DVT) prophylaxis. Continue on Coumadin. VS, I&O, 24H, Fishbone Vital Signs/I&O Vital Signs Date Time Temp Pulse Resp B/P (MAP) Pulse Ox O2 Delivery O2 Flow Rate FiO2 02/10/20 11:20 18 02/10/20 08:32 75 02/10/20 06:35 Room Air 02/10/20 06:00 98.9 138/78 (98) 97 I&O- Last 24 Hours up to 6 AM 02/10/20 06:00 Intake Total 2120 ml Output Total 1420 ml Balance 700 ml Laboratory Data 24H LABS Laboratory Tests 2 02/10/20 05:10: Immature Granulocyte % (Auto) 0.4, Neutrophils (%) (Auto) 43.0, Lymphocytes (%) (Auto) 40.9, Monocytes (%) (Auto) 13.6H, Eosinophils (%) (Auto) 2.1, Basophils (%) (Auto) 0.0, Neutrophils # (Auto) 2.3, Lymphocytes # (Auto) 2.2, Monocytes # (Auto) 0.7, Eosinophils # (Auto) 0.1, Basophils # (Auto) 0.0, Nucleated Red Blood Cells % (auto) 0.0, Anion Gap 6L, Glomerular Filtration Rate > 60.0, Calcium Level 8.9 CBC/BMP Laboratory Tests 02/10/20 05:10 Microbiology Microbiology 02/08/20 Gram Stain - Final, Complete 02/08/20 Abscess Culture - Final, Complete 02/08/20 Acid Fast Stain, Received Pending 02/08/20 Mycobacterial Culture, Received Pending 02/08/20 Fungal Smear, Received Pending 02/08/20 Fungal Culture, Received Pending 02/07/20 Respiratory Virus Panel (PCR) (VAL) - Final, Complete 02/07/20 Blood Culture - Preliminary, Resulted No Growth after 48 hours. All Specime... 02/07/20 Urine Culture - Final, Complete 02/07/20 Blood Culture - Preliminary, Resulted No Growth after 48 hours. All Specime... MARIA DEL CARMEN CAMPBELL MD February 10, 2020 12:14
--- NOTE | 2020-02-10 13:05 | IPN ---
DATE OF VISIT: 02/10/2020 Mr. Kwon is seen this morning on his bedside. He is feeling much better today and reports that his nausea and generalized pains and aches improved significantly. He still has some chronic back pain, which is not any worse than his usual. He denies any fever or chills. On physical exam, temperature 98.9 degrees Fahrenheit, heart rate 68 per minute and respiratory rate 18 per minute. Blood pressure 138/78 mmHg and oxygen saturation 97% on room air. Head is atraumatic. Neck supple and without jugular venous distention (JVD) or thyroid enlargement. Heart sounds regular with systolic murmur grade 3/6. There is no pericardial friction rub. Abdomen soft and nontender. Transplant kidney has a nephrostomy tube in the right lower quadrant. Extremities without any cyanosis or clubbing. Neurologically, he is at his baseline mentation without focal deficit. Today's labs show WBC count 5.3, hemoglobin 10.7 and hematocrit 34.8. Sodium 142, potassium 4.0, CO2 28, BUN 12 and creatinine 0.64. Glucose 89 and calcium 8.9. PROBLEMS: 1. Kidney transplant status. Kidney function has been stable and patient will continue with his chronic immunosuppressive therapy including prednisone, sirolimus, and Imuran. 2. Secondary hyperparathyroidism. Patient has been on calcitriol, which should be continued as per home dose. No changes are being made today. 3. Sepsis. He is currently on meropenem with all cultures negative so far. 4. Hypertension. Blood pressure very well controlled on current antihypertensives and no changes are being made today.
[2020-02-10 14:00] VITALS: BP 134/79
[2020-02-10] MEDS: LACTOBACILLUS ACIDOPHILUS CAP (BACID) PO SCH (18:31)
[2020-02-10] MEDS: **NOTE PATIENT COMMENT** MISC XX SCH (21:00)
[2020-02-10] MEDS: SENNA 8.6 MG TAB (SENOKOT) PO SCH (21:00)
[2020-02-10] MEDS: WARFARIN SOD 3 MG TAB PO SCH (21:04)
[2020-02-10] MEDS: MORPHINE 4 MG/ML 1ML VIAL/SYRINGE (J2270) IV PRN (21:05)
[2020-02-10 22:00] VITALS: BP 131/78
[2020-02-11] MEDS: RAMELTEON 8 MG TAB (ROZEREM) PO PRN (00:28)
[2020-02-11] MEDS: PERCOCET 5MG/325MG TAB PO SCH ×4 (00:29→16:22)
[2020-02-11] MEDS: MEROPENEM INJ 1 GM in IV 1 EA IV SCH ×2 (00:29→08:18)
[2020-02-11] MEDS: MORPHINE 4 MG/ML 1ML VIAL/SYRINGE (J2270) IV PRN ×2 (05:00→20:33)
[2020-02-11 06:00] VITALS: BP 122/61
[2020-02-11 06:21] LABS: BASO % 0.2 % (0.0-1.0); EOS # 0.1 10^3/uL (0.0-0.5); EOS % 2.3 % (0.0-3.0); HEMATOCRIT 32.8 % (42.0-52.0); LYMPH # 1.8 10^3/uL (1.5-5.0); LYMPH % 38.3 % (24.0-44.0); MEAN CORPUSCULAR HEMOGLOBIN 28.2 pg (27.0-33.0); MEAN CORPUSCULAR HGB CONC 30.5 g/dl (32.0-36.5); MEAN CORPUSCULAR VOLUME 92.7 fl (80.0-96.0); MONO # 0.7 10^3/uL (0.0-0.8); MONO % 14.7 % (0.0-5.0); NEUTROPHILS # 2.1 10^3/uL (1.5-8.5); NEUTROPHILS % 44.1 % (36.0-66.0); PLATELET COUNT, AUTOMATED 164 10^3/uL (150-450); RED BLOOD COUNT 3.54 10^6/uL (4.30-6.10); WHITE BLOOD COUNT 4.7 10^3/uL (4.0-10.0)
[2020-02-11 06:42] LABS: BLOOD UREA NITROGEN 9 MG/DL (7-18); CALCIUM LEVEL 9.3 MG/DL (8.8-10.2); CARBON DIOXIDE LEVEL 29 MEQ/L (21-32); CHLORIDE LEVEL 109 MEQ/L (98-107); CREATININE FOR GFR 0.58 MG/DL (0.70-1.30); GLOMERULAR FILTRATION RATE > 60.0 (>42); GLUCOSE, FASTING 101 MG/DL (70-100); POTASSIUM SERUM 3.7 MEQ/L (3.5-5.1); SODIUM LEVEL 142 MEQ/L (136-145)
[2020-02-11] MEDS: METOCLOPRAMIDE INJ 10MG/2ML VIAL (J2765 PER 1) IV SCH ×2 (08:18→12:47)
[2020-02-11] MEDS: LACTOBACILLUS ACIDOPHILUS CAP (BACID) PO SCH ×3 (08:19→16:22)
[2020-02-11] MEDS: DULoxetine 30 MG CAP (CYMBALTA) PO SCH (08:19)
[2020-02-11] MEDS: ASPIRIN 81 MG ENTERIC TAB PO SCH (08:19)
[2020-02-11] MEDS: predniSONE 5 MG TAB PO SCH (08:19)
[2020-02-11] MEDS: GABAPENTIN 300 MG CAP PO SCH ×3 (08:19→20:31)
[2020-02-11] MEDS: RAPAMUNE PO SCH (08:19)
[2020-02-11] MEDS: K-PHOS NEUTRAL 250MG TABLET (SOD.PHOSPHATE/POT.PHOSPHATE) PO SCH ×2 (08:20→20:31)
[2020-02-11] MEDS: aMILoride 5 MG TAB PO SCH (08:20)
[2020-02-11] MEDS: CALCITRIOL 0.25 MCG CAP (S0169) PO SCH (08:20)
[2020-02-11] MEDS: TORSEMIDE 10 MG TABLET PO SCH (08:20)
[2020-02-11] MEDS: DIGOXIN 0.125 MG TAB PO SCH (08:20)
[2020-02-11] MEDS: VITAMIN B COMPLEX/VIT C CAP PO SCH (08:20)
[2020-02-11] MEDS: azaTHIOprine 50 MG TAB (J7500) PO SCH (08:20)
[2020-02-11] MEDS: MAGNESIUM GLUCONATE 500 MG TAB PO SCH ×2 (08:21→20:32)
[2020-02-11 13:19] LABS: MAGNESIUM LEVEL 1.7 MG/DL (1.8-2.4)
[2020-02-11 14:00] VITALS: BP 121/61
--- NOTE | 2020-02-11 14:11 | REP ---
CT ABDOMEN/PELVIS WITHOUT CONTRAST: CT abdomen/pelvis performed without oral or IV contrast. Sagittal and coronal reconstruction images are performed. COMPARISON: 02/07/2020 There is a small right pleural effusion. There are chronic interstitial changes in both lung bases. The liver is grossly unremarkable as is the spleen and adrenal glands. Pancreas is grossly unremarkable. Calcified densities are seen in the renal fossae bilaterally. There is a right renal transplant again seen containing a nephrostomy tube with the pigtail formed in the renal pelvis. A calculus is seen in the adjacent proximal ureter. It measures 8 mm. There is a cystic structure anteriorly in the renal transplant. There is moderate atherosclerotic calcification of the abdominal aorta without aneurysm. There is no adenopathy, free air, or free fluid. I see no bowel wall thickening. Anterior mesh is seen in the abdominal wall from prior surgery for hernia repair. There is a left inguinal hernia containing colon. There is no bowel wall thickening, inflammatory change, or free fluid, with no CT findings of strangulation. This could be incarcerated but needs to be correlated clinically. Urinary bladder is not well distended and not well evaluated. There are degenerative changes of the spine with multiple compression deformities, unchanged. Metallic rods and screws are seen in the lower thoracic and upper lumbar spine. IMPRESSION: Left inguinal hernia contains sigmoid colon with no signs of strangulation. There is no complete bowel obstruction. There could be incarceration but this needs to be correlated clinically. Small right pleural effusion. No other acute finding. Electronically Signed by Fantasma Dunn MD 02/11/2020 02:25 P
[2020-02-11] MEDS: cefTRIAXone SOD 2 GM in D5W MINI-BAG PLUS 50 ML IV SCH (15:50)
[2020-02-11] MEDS ORDERED: METOCLOPRAMIDE 5 MG TAB PO PRN (16:45)
--- NOTE | 2020-02-11 19:06 | IPN ---
DATE: 02/11/2020 Patient complains of left lower quadrant abdominal pain, rated at a 10/10, continues to have a cervical collar. No fever or chills, nausea, vomiting, tolerating his diet. Temperature 97.1, pulse 70, respiratory rate 16, blood pressure 122/61, 96% on room air. Generally, awake, alert, oriented, has a cervical collar, answering questions appropriately. Moist mucous membranes. Lungs are clear to auscultation. No wheezing or rales. Heart: S1, S2, irregularly irregular. Abdomen is soft, has a nephrostomy tube, clear urine, and a left inguinal hernia that is reducible but tender. Positive bowel sounds times four quadrants. No rebound or guarding. No costovertebral angle tenderness. Right lower quadrant transplant kidney nephrostomy tube. Dorsal paraspinal seroma still slightly tender but decreased in size. No erythema. Extremities: Chronic venous stasis changes. LABORATORY DATA: White count 4.7, hemoglobin 10, hematocrit 32, platelet count 164. Sodium 142, potassium 3.7, chloride 109, bicarbonate 29, BUN 9, creatinine 0.58, glucose 101. Lactic acid is pending. Respiratory panel, blood culture is negative. Urine culture negative. Dorsal paraspinal stoma fluid pending, gram stain no organism, no growth aerobically. ASSESSMENT AND PLAN: This is a 75-year-old male with a history of end-stage renal disease, status post renal transplant 2006, chronic atrial fibrillation, hypertension, compression fracture, multiple back surgeries with a dorsal paraspinal seroma, recurrent obstructive calculi requiring nephrostomy tube, nephrostomy tube exchanged with prior history of urinary tract infection (UTI) from Enterobacter and sepsis. He completed last dose of IV ceftriaxone infusion a week ago and felt well. On Tuesday, he walked about a mile but then developed significant muscle aches. He was found to have a low grade temperature 100.4 and was sent to the emergency room (ER) by his global technical writer that he had seen on scheduled followup for skin cancer and biopsies. He was found to have 3+ leukocyte esterase, 57 WBCs and 1+ bacteria on UA. CT abdomen showed left inguinal hernia but no abscesses or perinephric stranding. Patient was started on renally dosed intravenous Zosyn, apartment leasing manager was consulted due to renal allograft management. Dr. Johns was consulted due to complicated UTI and the dorsal paraspinal hematoma seroma cavity was evaluated with incision and drainage. Patient's urine culture remained negative. The seroma fluid has no organisms and no growth. IMPRESSION: 1. Low grade fever. Patient's urine culture was negative. Reason for low grade fever is unknown. Seroma fluid is negative with no organisms and negative cultures. Currently still on renally dosed IV Zosyn. Defer to infectious disease regarding further changes in antibiotics. 2. Left lower quadrant inguinal hernia. Patient has complained of pain 7/10, as well as clinically tender. The hernia itself is reducible. We have decided to check a lactic acid and repeat CT abdomen and pelvis without oral or IV contrast. General Surgeon, Dr. Tor Kiran, has been consulted for evaluation of the left inguinal hernia to see if it needs to be emergently repaired. 3. Chronic atrial fibrillation. On warfarin. International normalized ratio (INR) is 1.74 on 02/09/2020, will check daily INR. If patient is going for hernia repair, we will have to hold the patient's warfarin until the INR is less than 1.5. 4. Deep vein thrombosis (DVT) prophylaxis. On warfarin.
--- NOTE | 2020-02-11 20:18 | IPN ---
DATE: 02/11/2020 Mr. Kwon is seen this morning on his bedside. He continues to have liquid stools. He is also complaining of bloating in his abdomen. He has a left inguinal hernia, and he has been pushing on it. His chronic back pain is unchanged. He denies any vomiting, fever or chills. He has no dyspnea. PHYSICAL EXAMINATION: Temperature 97.1 degrees Fahrenheit, heart rate 70 per minute and respiratory rate 14 per minute. Blood pressure 122/60 mmHg and oxygen saturation 96% on room air. Head is atraumatic. Neck: Supple and without jugular venous distention (JVD) or thyroid enlargement. Heart sounds are regular with systolic murmur grade 3/6. Lungs: Clear to auscultation. Abdomen: Soft and bowel sounds are present. He has a left inguinal hernia with swishing sounds when he presses on it. Transplant kidney in right lower quadrant has a nephrostomy tube in it. Extremities have no cyanosis or clubbing. Chronic edema on right upper extremity and trace edema on bilateral lower extremities is unchanged. Neurologically he is awake, alert and oriented times three. Today's labs show a lactic acid level of 2.7, sodium 142, potassium 3.7, CO2 of 29, BUN 9, and creatinine 0.58. Glucose 101 and calcium 9.3. WBC count is 4.7, hemoglobin 10.0, and hematocrit 32.8. He also had a CT scan of abdomen and pelvis done this morning; the results are still pending. PROBLEMS: 1. Kidney transplant status. Kidney function is stable, and the patient will continue with chronic immunosuppressive therapy. No changes are needed. 2. Diarrhea and lactic acidosis. I am concerned about possibility of Clostridium difficile colitis as he does have a history of antibiotic use for a couple of weeks for urosepsis recently and he is still on antibiotic. I would strongly recommend to test for C diff. 3. Anemia. At present, his anemia is stable and does not need any urgent intervention. 4. Generalized pains and aches. Chronic issue and had been on chronic pain medications. 5. Sepsis. At present, all his cultures have been negative so far. He is being followed by Dr. Johns and remains on meropenem. 6. Hypertension. Blood pressure is very well controlled and no changes are being made today.
[2020-02-11] MEDS: WARFARIN SOD 3 MG TAB PO SCH (20:31)
[2020-02-11] MEDS: SENNA 8.6 MG TAB (SENOKOT) PO SCH (20:32)
[2020-02-11] MEDS: LIDOCAINE 5% (LIDODERM) PATCH TOP PRN (20:36)
[2020-02-11] MEDS: **NOTE PATIENT COMMENT** MISC XX SCH (21:00)
[2020-02-11 22:00] VITALS: BP 110/75
[2020-02-12] MEDS: RAMELTEON 8 MG TAB (ROZEREM) PO PRN
[2020-02-12 06:00] VITALS: BP 137/88
[2020-02-12 06:15] LABS: BASO % 0.2 % (0.0-1.0); EOS # 0.1 10^3/uL (0.0-0.5); EOS % 2.2 % (0.0-3.0); HEMATOCRIT 34.3 % (42.0-52.0); HEMOGLOBIN 10.5 g/dl (13.5-17.5); LYMPH # 1.9 10^3/uL (1.5-5.0); LYMPH % 37.3 % (24.0-44.0); MEAN CORPUSCULAR HEMOGLOBIN 28.3 pg (27.0-33.0); MEAN CORPUSCULAR HGB CONC 30.6 g/dl (32.0-36.5); MEAN CORPUSCULAR VOLUME 92.5 fl (80.0-96.0); MONO # 0.7 10^3/uL (0.0-0.8); MONO % 14.1 % (0.0-5.0); NEUTROPHILS # 2.3 10^3/uL (1.5-8.5); NEUTROPHILS % 45.8 % (36.0-66.0); PLATELET COUNT, AUTOMATED 179 10^3/uL (150-450); RED BLOOD COUNT 3.71 10^6/uL (4.30-6.10); WHITE BLOOD COUNT 5.1 10^3/uL (4.0-10.0)
[2020-02-12] MEDS: PERCOCET 5MG/325MG TAB PO SCH ×3 (06:15→11:50)
[2020-02-12 06:24] LABS: INR 3.51; PROTHROMBIN TIME 35.2 SECONDS (11.8-14.0)
[2020-02-12 06:33] LABS: BLOOD UREA NITROGEN 11 MG/DL (7-18); CALCIUM LEVEL 9.5 MG/DL (8.8-10.2); CARBON DIOXIDE LEVEL 28 MEQ/L (21-32); CHLORIDE LEVEL 108 MEQ/L (98-107); CREATININE FOR GFR 0.55 MG/DL (0.70-1.30); GLOMERULAR FILTRATION RATE > 60.0 (>42); GLUCOSE, FASTING 96 MG/DL (70-100); POTASSIUM SERUM 3.8 MEQ/L (3.5-5.1); SODIUM LEVEL 143 MEQ/L (136-145)
[2020-02-12 07:41] LABS: ERYTHROCYTE SEDIMENTATION RATE 50 mm/hr (0-20)
--- NOTE | 2020-02-12 07:51 | IPN ---
DATE: 02/11/2020 Mr. Kwon seems to be doing better. He states his neck pain and back pain have improved since we have drained some fluid from his lower back. He denies any nausea or vomiting. He does complain of some pain in his groin, which he relates to his hernia. He had CT of abdomen and pelvis which does not show any incarceration. He does complain of diarrhea as well. On physical exam, heart normal S1, S2, with a systolic ejection murmur. Irregularly irregular. Lungs are clear. No wheezes, rales or rhonchi. Abdomen soft, nontender. No hepatosplenomegaly. Nephrostomy with clear urine with some specks. Extremities: No clubbing, cyanosis or edema. Lower back has a seroma along the dorsal spine which has decreased in size. Multiple healed scars on the back. LABS: White count 4.7, hemoglobin 10, hematocrit 32.8, platelets 164, with 44% neutrophils, 38% lymphocytes, 14% monocytes. Sodium 142, potassium 3.7, chloride 109, bicarbonate 29, BUN 9, creatinine 0.58, glucose 101, lactic acid 2.7 down to 1.5 six hours later, calcium 9.3, magnesium 1.7, CRP 1.41, digoxin level 1. Urine culture was negative. Blood culture two sets were negative. Respiratory panel was negative. COVID-19 was negative. Seroma fluid had no cells, no organisms seen, and culture was negative. AFB smear and culture, fungal smear and culture pending. IMPRESSION: 1. History of renal transplant infection previously treated with IV Rocephin with recurrent symptoms in spite of a negative urine culture this hospitalization. Patient has improved with IV meropenem except for diarrhea. CT of abdomen and pelvis showed no evidence of infection. 2. History of kidney transplant. On Imuran, Rapamune and prednisone with stable creatinine. 3. Dorsal paraspinal seroma. Status post aspiration. Culture negative. That does not seem to be the source of infection either. 4. Diarrhea. Most likely antibiotic induced. PLAN: Will switch meropenem to Rocephin. He is currently day #5 of IV antibiotics. Will discuss with primary team plan of treatment upon discharge as well as with his primary attending Dr. Alcantar in the morning anticipating his discharge. [facility] CENTERJuan
[2020-02-12] MEDS: RAPAMUNE PO SCH (09:00)
[2020-02-12] MEDS: predniSONE 5 MG TAB PO SCH (09:48)
[2020-02-12] MEDS: GABAPENTIN 300 MG CAP PO SCH ×2 (09:48→15:30)
[2020-02-12] MEDS: TORSEMIDE 10 MG TABLET PO SCH (09:48)
[2020-02-12] MEDS: DIGOXIN 0.125 MG TAB PO SCH (09:48)
[2020-02-12] MEDS: DULoxetine 30 MG CAP (CYMBALTA) PO SCH (09:48)
[2020-02-12] MEDS: VITAMIN B COMPLEX/VIT C CAP PO SCH (09:49)
[2020-02-12] MEDS: LACTOBACILLUS ACIDOPHILUS CAP (BACID) PO SCH ×2 (09:49→11:50)
[2020-02-12] MEDS: K-PHOS NEUTRAL 250MG TABLET (SOD.PHOSPHATE/POT.PHOSPHATE) PO SCH (09:49)
[2020-02-12] MEDS: aMILoride 5 MG TAB PO SCH (09:49)
[2020-02-12] MEDS: CALCITRIOL 0.25 MCG CAP (S0169) PO SCH (09:49)
[2020-02-12] MEDS: ASPIRIN 81 MG ENTERIC TAB PO SCH (09:49)
[2020-02-12] MEDS: azaTHIOprine 50 MG TAB (J7500) PO SCH (09:49)
[2020-02-12] MEDS: MAGNESIUM GLUCONATE 500 MG TAB PO SCH (09:50)
[2020-02-12] MEDS: CYCLOBENZAPRINE 10MG TABLET PO PRN (09:56)
--- NOTE | 2020-02-12 13:52 | CR ---
DATE OF CONSULTATION: 02/11/2020 The patient is a 75-year-old male who was hospitalized for infection of unknown etiology possibly secondary to a urosepsis. Has had a renal transplant and essentially a nephrostomy tube and presented to the hospital with ongoing infection. During his admission, he has been doing well but was complaining of some left groin discomfort. He has had a longstanding left inguinal hernia that has not been as of yet repaired. He has had a previous ventral hernia that was repaired laparoscopically. PAST MEDICAL HISTORY: His past medical history is significant for history of renal transplantation, Atrial fibrillation, hypertension, compression fracture and with multiple back surgery, history of urinary tract infection (UTI) sepsis, bacteremia, nephrostomy tubes, AV fistula placement on the left, hernia repairs, spinal surgery, renal allograft. MEDICATIONS AT HOME: Include - Tylenol - amiloride - aspirin - azathioprine - Calcitriol - cyclobenzaprine - Valium - digoxin - Colace - Cymbalta - gabapentin - hydroxyzine - Lidoderm patch - magnesium gluconate - Zofran - oxycodone - MiraLax - prednisone - Senokot - sodium phosphate - torsemide - vitamin B complex - Coumadin - melatonin - Rapamune PHYSICAL EXAMINATION: Reveals a pleasant 75-year-old male of stated age. HEENT is unremarkable. Lungs were clear anteriorly. Heart: Irregular with multiple irregular beats. Abdomen is softly distended and nontender. He has a nephrostomy tube in the right- hand side. His left inguinal hernia is nontender and easily reducible. IMPRESSION AND PLAN: The patient has evidence of a left inguinal hernia. I am not appreciate any residual ventral hernia present after his previous mesh repair. He has a mildly symptomatic inguinal hernia. However, with all of his current infectious processes that are ongoing at this time, it is a relative if not, an absolute contraindication to place a mesh in at this time when he has episodes of bacteremia, sepsis, etc. I would recommend that he be treated with some more aggressive stool softeners and if he becomes more symptomatic, then consideration of operative intervention is reasonable. Operative intervention may be possible laparoscopically/robotically, although given his previous abdominal surgery, this may be somewhat difficult and an open operative intervention may be required. In any case at this time I would recommend observation and followup as an outpatient. He has seen Dr. Gamble in the past. He can either followup with Dr. Gamble or myself in 2-3 weeks after discharge.
[2020-02-12 14:00] VITALS: BP 140/84
[2020-02-12] MEDS: cefTRIAXone SOD 2 GM in D5W MINI-BAG PLUS 50 ML IV SCH (15:30)
[2020-02-12] MEDS: MORPHINE 4 MG/ML 1ML VIAL/SYRINGE (J2270) IV PRN (15:56)
--- NOTE | 2020-02-12 16:29 | DS.PDOC ---
Discharge Summary General Date of Admission February 07, 2020 at 17:40 Date of Discharge 02/12/20 Discharge Summary CHIEF COMPLAINT: Muscle aches. Final diagnosis: UTI Dorsal paraspinal seroma Chronic A. fib History of present illness the hospital course This is a 75-year-old male with a history of end-stage renal disease, status post renal transplant 2006, chronic atrial fibrillation, hypertension, jyoti emery fracture, multiple back surgeries with a dorsal paraspinal seroma, recurrent obstructive calculi requiring nephrostomy tube, nephrostomy tube exchanged with prior history of urinary tract infection (UTI) from Enterobacter and sepsis. He completed last dose of IV ceftriaxone infusion a week ago and felt well. On Tuesday, he walked about a mile but then developed significant muscle aches. He was found to have a low grade temperature 100.4 and was sent to the emergency room (ER) by his automotive tire tester that he had seen on scheduled followup for skin cancer and biopsies. He was found to have 3+ leukocyte esterase, 57 WBCs and 1+ bacteria on UA. CT abdomen showed left inguinal hernia but no abscesses or perinephric stranding. Patient was started on renally dosed intravenous Zosyn, salesperson used cars was consulted due to renal allograft management. Dr. Johns was consulted due to complicated UTI and the dorsal paraspinal hematoma seroma cavity was evaluated with incision and drainage. Patient's urine culture remained negative. The seroma fluid has no organisms and no growth. The patient was continued on IV antibiotics with IV Rocephin and ID, as well as nephrology saw the patient and as per ID, the patient will be discharged on cefdinir 300 mg twice a day for 8 more days. He'll be continued on his immunosuppressants for his renal transplant. As per recommendations from nephrology. The patient's urostomy site looks okay. The patient's urostomy bag is clear urine. He already has an appointment scheduled with his urologist to change urostomy tube in ending February as per him, which he is going to comply the appointment with. The patient has been afebrile counts have been normal and he is medically optimized for discharge and maximal benefit from this inpatient stay has been optimized. Lyla severino is in rate control and continues to be on warfarin home dose and has been advised to follow up INRs with his PCP. His Respiratory panel, blood culture is negative. Urine culture negative.Dorsal paraspinal stoma fluid culture is negative so far, gram stain no organism, no growth aerobically. He is medically optimized for discharge. His advised to follow with PCP and ID, urology as an outpatient as an outpatient Physical examination Generally, awake, alert, oriented, has a cervical collar, answering questions appropriately. Moist mucous membranes. Lungs are clear to auscultation. No wheezing or rales. Heart: S1, S2, irregularly irregular. Abdomen is soft, has a nephrostomy tube, clear urine, and a left inguinal hernia that is reducible but tender. Positive bowel sounds times four quadrants. No rebound or guarding. No costovertebral angle tenderness. Right lower quadrant transplant kidney nephrostomy tube. Back : Dorsal paraspinal seroma still slightly tender but decreased in size. Noerythema. Extremities: Chronic venous stasis changes. Medications. As per discharge reconciliation medication list Activity as tolerated Diet. 2 g sodium diet Follow-up appointments. PCP in 1 week, nephrology in 1 week. Urology in 4 weeks Condition on discharge. Patient is medically optimized for discharge Discharge disposition: Home Total time spent on this discharge including coordination of care, review of chart documentation and extubation contact is around 35 minutes Vital Signs/I&Os Vital Signs Date Time Temp Pulse Resp B/P (MAP) Pulse Ox O2 Delivery O2 Flow Rate FiO2 02/12/20 16:06 18 Room Air 02/12/20 14:00 97.8 69 140/84 (102) 95 I&O- Last 24 Hours up to 6 AM 02/12/20 06:00 Intake Total 1010 ml Output Total 1835 ml Balance -825 ml Laboratory Data Labs 24H Laboratory Tests 2 02/12/20 05:36: Immature Granulocyte % (Auto) 0.4, Neutrophils (%) (Auto) 45.8, Lymphocytes (%) (Auto) 37.3, Monocytes (%) (Auto) 14.1H, Eosinophils (%) (Auto) 2.2, Basophils (%) (Auto) 0.2, Neutrophils # (Auto) 2.3, Lymphocytes # (Auto) 1.9, Monocytes # (Auto) 0.7, Eosinophils # (Auto) 0.1, Basophils # (Auto) 0.0, Nucleated Red Blood Cells % (auto) 0.0, Erythrocyte Sedimentation Rate 50H, Prothrombin Time 35.2H, Prothromb Time International Ratio 3.51, Anion Gap 7L, Glomerular Filtration Rate > 60.0, Calcium Level 9.5 CBC/BMP Laboratory Tests 02/12/20 05:36 Microbiology Microbiology 02/08/20 Gram Stain - Final, Complete 02/08/20 Abscess Culture - Final, Complete 02/08/20 Acid Fast Stain, Received Pending 02/08/20 Mycobacterial Culture, Received Pending 02/08/20 Fungal Smear, Received Pending 02/08/20 Fungal Culture, Received Pending 02/07/20 Respiratory Virus Panel (PCR) (VAL) - Final, Complete 02/07/20 Blood Culture - Preliminary, Resulted No Growth after 72 hours. All specime... 02/07/20 Urine Culture - Final, Complete 02/07/20 Blood Culture - Final, Complete NO GROWTH AFTER 5 DAYS Discharge Medications Scheduled Amiloride HCl (Amiloride HCl) 5 Mg Tablet, 5 MG PO DAILY, (Reported) Aspirin (Aspir 81) 81 Mg Tab, 81 MG PO DAILY, (Reported) Azathioprine (Azathioprine) 50 Mg Tablet, 100 MG PO DAILY, (Reported) Calcitriol (Calcitriol) 0.25 Mcg Cap, 0.25 MCG PO 5XW, (Reported) MON-FRI Digoxin (Digoxin) 125 Mcg Tablet, 125 MCG PO DAILY, (Reported) Duloxetine Hcl (Cymbalta) 30 Mg Capsule.dr, 30 MG PO DAILY, (Reported) Gabapentin (Gabapentin) 300 Mg Capsule, 600 MG PO TID, (Reported) Magnesium Gluconate (Magnesium Gluconate) 27 Mg Tablet, 6 TABS PO BID, (Reported) Melatonin (Melatonin) 10 Mg Capsule, 10 MG PO QHS, (Reported) Oxycodone HCl/Acetaminophen (Oxycodone-Acetaminophen 5-325) 1 Each Tablet, 1.5 TAB PO Q6H, (Reported) Prednisone (Prednisone) 5 Mg Tab, 5 MG PO DAILY, (Reported) Sennosides (Senna Lax) 8.6 Mg Tablet, 17.2 MG PO QHS, (Reported) Sirolimus (Rapamune) 1 Mg Tablet, 2 MG PO DAILY, (Reported) Sod Phos Di, Knott/K Phos Knott (Virt-Phos 250 Neutral Tablet) 1 Tab Tab, 2 TAB PO BID, (Reported) Torsemide (Torsemide) 20 Mg Tablet, 10 MG PO DAILY, (Reported) Vitamin B Complex Vit C No.3 (B Complex with Vitamin C) 1 Cap Cap, 1 CAP PO DAILY, (Reported) Warfarin Sodium (Warfarin Sodium) 3 Mg Tablet, 3 MG PO QHS, (Reported) Scheduled PRN Acetaminophen (Acetaminophen) 325 Mg Tablet, 650 MG PO Q4H PRN for PAIN, (Reported) Cyclobenzaprine HCl (Cyclobenzaprine HCl) 10 Mg Tablet, 10 MG PO BID PRN for MUSCLE SPASMS, (Reported) Diazepam (Diazepam) 2 Mg Tablet, 2 MG PO TID PRN for ANXIETY, (Reported) Docusate Sodium (Docusate Sodium) 100 Mg Capsule, 100 MG PO DAILY PRN for CONSTIPATION, (Reported) Hydroxyzine HCl (Hydroxyzine HCl) 25 Mg Tablet, 50 MG PO QHS PRN for INSOMNIA, (Reported) Lidocaine (Lidoderm) 5% Adh..patch, 1 PATCH TOP DAILY PRN for PAIN, (Reported) APPLY TO BACK 12HR ON, 12HR OFF Methyl Salicylate/Menthol (Icy Hot Cream) 35.4 Gm Cream..g., 1 APLCT TOP DAILY PRN for BACK PAIN, (Reported) Ondansetron HCl (Zofran) 4 Mg Tablet, 4 MG PO TID PRN for NAUSEA OR VOMITING, (Reported) Polyethylene Glycol 3350 (Miralax) 119 Gm Powder, 17 GRAM PO QHS PRN for CONSTIPATION, (Reported) DISSOLVE IN WATER OR JUICE Allergies Coded Allergies: cefuroxime (Verified Adverse Reaction, Mild, ANXIETY, 12/20/18) codeine (Verified Adverse Reaction, Mild, AGITATION, 12/20/18) doxycycline (Verified Adverse Reaction, Mild, UPSET STOMACH, 01/14/20) lorazepam (Verified Adverse Reaction, Mild, AGITATION, 12/20/18) pregabalin (Verified Adverse Reaction, Mild, ANXIETY, DROWSINESS, 01/14/20) amoxicillin (Verified Adverse Reaction, Unknown, can take few prior to dentist but can not take for 10 days, 01/14/20) levofloxacin (Verified Adverse Reaction, Unknown, HEART RACES, 02/07/20) tizanidine (Verified Adverse Reaction, Unknown, 01/14/20) HERMILA LIANG MD February 12, 2020 16:29
[2020-02-12] MEDS ORDERED: CEFD300CAP PO (16:55)
--- NOTE | 2020-02-12 21:27 | IPN ---
DATE: 02/12/2020 Mr. Kwon is seen this morning on his bedside. He just finished physical therapy and walked in the hallway. He is feeling much better now and is looking forward to going home. He had a CT scan of the abdomen and pelvis done yesterday, which showed left inguinal hernia containing sigmoid colon with no signs of strangulation. Small right pleural effusion was noted. The patient is feeling much better now and denies any dyspnea or chest pain. Diarrhea is also improved. He has no fever or chills. PHYSICAL EXAMINATION: Temperature 98.5 degrees Fahrenheit, heart rate 70 per minute and respiratory rate 18 per minute. Blood pressure 137/88 mmHg and oxygen saturation 94% on room air. Head is atraumatic. Neck is supple and without jugular venous distention (JVD) or thyroid enlargement. Heart sounds are irregular with systolic murmur grade 3/6. Lungs sound clear to auscultation. Abdomen: Soft and nontender. Bowel sounds are normal. Left sided inguinal hernia is unchanged. Extremities have chronic edema on the right hand and forearm. Lower extremity edema is minimal. There is no cyanosis or clubbing. His transplant kidney in right lower quadrant has a nephrostomy tube in place. Today's labs show sodium 143, potassium 3.8, CO2 of 28, BUN 11 and creatinine 0.55. WBC count 5.1, hemoglobin 10.5 and hematocrit 34.3. INR is 3.5. Blood cultures have remained negative so far. PROBLEMS: 1. Kidney transplant status. Kidney function remains stable at baseline, and the patient remains on chronic immunosuppressive therapy with Imuran, prednisone and sirolimus. 2. Chronic kidney disease. His kidney function is stable at baseline and electrolytes are stable. 3. Hypertension. Blood pressure is very well controlled on current medications and no changes are being made today. 4. Anemia. His anemia is also stable and no changes are being made today. 5. Recurrent kidney stone, status post nephrostomy right kidney. The patient has a stone in his transplant kidney ureter. He is going to need a nephrolithotomy done at some point once he gets cleared medically. At this point, he has a nephrostomy tube which is draining urine clear and will continue to maintain it. 6. Weakness and back pain. The patient seems to be making good progress and walked four laps on the floor. His chronic back pain is related to severe degenerative arthritis and spine problems. He remains on pain medications.
--- NOTE | 2020-02-13 05:13 | IPN ---
DATE: 02/12/2020 Mr. Kwon is doing well. He walks, and he is anxious to go home. He denies any fever or chills. No nausea, vomiting, or diarrhea. LABS: White count is 5.1, hemoglobin 10.5, hematocrit 34.3, platelets 179, ESR 50. Sodium 143, potassium 3.8, chloride 108, bicarbonate 28, BUN 11, creatinine 0.55, glucose 96, calcium 9.5, lactic acid 1.5, CRP 1.4. All cultures have remained negative. IMPRESSION: 1. Probable lower urinary tract infection. Patient is currently day #6 of intravenous (IV) antibiotics with Rocephin. 2. History of paraspinal seroma. Culture negative. Acid-fast bacillus (AFB) smear and culture are pending on that specimen. 3. History of renal transplant. On immunosuppressive therapy with prednisone. Imuran and Rapamune stable. PLAN: Patient is stable for discharge. He could be discharged home on oral cefdinir 300 mg twice a day for 8 days to finish a 14-day course of antibiotic.
[2020-02-13] MEDS ORDERED: CEFDINIR 300 MG CAP (OMNICEF) PO SCH (09:00)
== END 2020-02-12 17:51 | disposition home or self-care (01) | DRG 920 ==
LOC: M ED 12:10 → M ED INP 17:40 → ENRESERV 19:19 → M MSPAV 21:06
PROVIDERS: ADMIT General Practice; ATTEND Internal Medicine
PROC: 009U3ZX Drainage of Spinal Canal, Percutaneous Approach, Diagnostic (ICD-10-PCS; principal; 2020-02-08 14:30)
DX: M96.842 Postprocedural seroma of a musculoskeletal structure following a musculoskeletal system procedure (principal); I48.20 Chronic atrial fibrillation, unspecified; N25.81 Secondary hyperparathyroidism of renal origin; N39.0 Urinary tract infection, site not specified; Z94.0 Kidney transplant status; N20.0 Calculus of kidney; I10 Essential (primary) hypertension; Z79.899 Other long term (current) drug therapy; Z88.5 Allergy status to narcotic agent; Z88.8 Allergy status to other drugs, medicaments and biological substances; Z79.82 Long term (current) use of aspirin; Z88.0 Allergy status to penicillin; D63.1 Anemia in chronic kidney disease; E83.42 Hypomagnesemia; K40.90 Unilateral inguinal hernia, without obstruction or gangrene, not specified as recurrent; R19.7 Diarrhea, unspecified

== ENCOUNTER → 2020-02-15 | Outpatient (CLI) | payer MEDICARE ==
[~2020-02-15] MED LIST changes: +CEFD300CAP PO
[2020-02-15 17:19] LABS: INR 3.92; PROTHROMBIN TIME 38.5 SECONDS (11.8-14.0)
== END ==
LOC: M LAB 14:27
DX: Z51.81 Encounter for therapeutic drug level monitoring (principal); Z79.01 Long term (current) use of anticoagulants

== ENCOUNTER → 2020-03-03 | Outpatient (CLI) | payer MEDICARE ==
[~2020-03-03] MED LIST changes: +CIPROFLOXACIN/D5W 400 MG/200 ML BAG (J0744) As Ordered ONE; -COUM1TAB14 PO; +COUM4TAB8 PO; +ISOVUE-300 61% 50ML VIAL As Ordered ONE; +LIDOCAINE 1% MDV 20ML VIAL As Ordered ONE; +MIDAZOLAM INJ 2MG/2ML VIAL (J2250 PER 1MG) As Ordered ONE; +fentaNYL 100 MCG/2 ML INJECTION (J3010) As Ordered ONE
--- NOTE | 2020-03-03 14:17 | IRHP ---
[facility] IR Pre-Procedure H & P General Date of Service: Mar 03, 2020 Procedure: Same Day Surgery Interval History and Physical I have seen the patient and reviewed last H & P performed within 30 days. There is no significant interval change. History of Present Illness Chief Complaint The patient is a 75-year-old male admitted with a reason for visit of Obstructive Uropathy. PRE-PROCEDURE DIAGNOSIS:ureteral stricture HEART: normal rate. LUNGS: normal breathing at rest. ASA Classification ASA Classification: III-Severe systemic dis. Mallampati Score: II NPO: Yes Problems with prior sedation: No Obstructive Sleep Apnea: No Plan moderate sedation Allergies Coded Allergies: cefuroxime (Verified Adverse Reaction, Mild, ANXIETY, 12/20/18) codeine (Verified Adverse Reaction, Mild, AGITATION, 12/20/18) doxycycline (Verified Adverse Reaction, Mild, UPSET STOMACH, 01/14/20) lorazepam (Verified Adverse Reaction, Mild, AGITATION, 12/20/18) pregabalin (Verified Adverse Reaction, Mild, ANXIETY, DROWSINESS, 01/14/20) amoxicillin (Verified Adverse Reaction, Unknown, can take few prior to dentist but can not take for 10 days, 01/14/20) levofloxacin (Verified Adverse Reaction, Unknown, HEART RACES, 02/07/20) tizanidine (Verified Adverse Reaction, Unknown, 01/14/20) Home Medications Scheduled Amiloride HCl (Amiloride HCl), 5 MG PO DAILY, (Reported) Aspirin (Aspir 81), 81 MG PO DAILY, (Reported) Azathioprine (Azathioprine), 100 MG PO DAILY, (Reported) Calcitriol (Calcitriol), 0.25 MCG PO 5XW, (Reported) Digoxin (Digoxin), 125 MCG PO DAILY, (Reported) Duloxetine Hcl (Cymbalta), 30 MG PO DAILY, (Reported) Gabapentin (Gabapentin), 600 MG PO TID, (Reported) Magnesium Gluconate (Magnesium Gluconate), 6 TABS PO BID, (Reported) Melatonin (Melatonin), 10 MG PO QHS, (Reported) Oxycodone HCl/Acetaminophen (Oxycodone-Acetaminophen 5-325), 1.5 TAB PO Q6H, (Reported) Prednisone (Prednisone), 5 MG PO DAILY, (Reported) Sennosides (Senna Lax), 17.2 MG PO QHS, (Reported) Sirolimus (Rapamune), 2 MG PO DAILY, (Reported) Sod Phos Di, [place]/K Phos [place] (Virt-Phos 250 Neutral Tablet), 2 TAB PO BID, (Reported) Torsemide (Torsemide), 10 MG PO DAILY, (Reported) Vitamin B Complex Vit C No.3 (B Complex with Vitamin C), 1 CAP PO DAILY, (Reported) Warfarin Sodium (Warfarin Sodium), 3 MG PO QHS, (Reported) Scheduled PRN Acetaminophen (Acetaminophen), 650 MG PO Q4H PRN for PAIN, (Reported) Cyclobenzaprine HCl (Cyclobenzaprine HCl), 10 MG PO BID PRN for MUSCLE SPASMS, (Reported) Diazepam (Diazepam), 2 MG PO TID PRN for ANXIETY, (Reported) Docusate Sodium (Docusate Sodium), 100 MG PO DAILY PRN for CONSTIPATION, (Reported) Hydroxyzine HCl (Hydroxyzine HCl), 50 MG PO QHS PRN for INSOMNIA, (Reported) Lidocaine (Lidoderm), 1 PATCH TOP DAILY PRN for PAIN, (Reported) Methyl Salicylate/Menthol (Icy Hot Cream), 1 APLCT TOP DAILY PRN for BACK PAIN, (Reported) Ondansetron HCl (Zofran), 4 MG PO TID PRN for NAUSEA OR VOMITING, (Reported) Polyethylene Glycol 3350 (Miralax), 17 GRAM PO QHS PRN for CONSTIPATION, (Reported) Discontinued Medications Cefdinir (Cefdinir), 300 MG PO BID Discontinued Reason: Pt states not taking VS, I&O, 24H, Fishbone Vital Signs/I&O Vital Signs Date Time Temp Pulse Resp B/P (MAP) Pulse Ox O2 Delivery O2 Flow Rate FiO2 03/03/20 14:08 62 18 100 Nasal Cannula 2 03/03/20 13:00 100 ERICH TATUM MD Mar 03, 2020 14:17
--- NOTE | 2020-03-03 14:17 | REP ---
IR Nephrostomy catheter exchange. IR Nephrostogram and ureterogram. Clinical information: Transplant kidney. Ureteral stricture. Physician: Dr. Quach. Procedure: The patient was advised of the benefits, risks and alternatives of the procedure and informed consent was obtained. The time-out was performed with verification of the patient's name, MRN, site of procedure and type of procedure to be performed. The patient was positioned in the supine position on the angiographic table. The site was prepped and draped in the usual sterile fashion. Moderate sedation was performed by the physician including the presence of an independent trained observer who assisted in monitoring the patient's level of consciousness and physiologic status. Following the administration of Versed and Fentanyl, the physician spent 30 minutes of continuous face to face time with the patient. A sap manager radiograph reveals a right-sided transplant nephrostomy catheter in expected location. An initial nephrostogram and ureterogram was performed through the preexisting catheter confirming pigtail positioned in the renal collecting system. The catheter and sutures were cut, an Amplatz wire was passed into the renal collecting system. The preexisting nephrostomy catheter was removed over the wire. A new 10 -Bengali nephrostomy catheter was advanced in the renal collecting system. A final nephrostogram and ureterogram was performed confirming position of the pigtail in the renal pelvis with mild hydronephrosis. Ureterogram demonstrates the ureter is patent to the bladder. The catheter was secured in position with 2-0 Prolene and a sterile dressing was applied. The catheter was placed gravity drainage. The patient tolerated the procedure well and was returned to the [facility] in stable condition. EBL: Less than 5 ml. Complications: None. Conclusion: 1. Nephrostogram and ureterogram demonstrate ureter is patent to bladder. Consider capping trial. 2. Successful right nephrostomy catheter exchange. Patient to return in 3 months for routine catheter exchange. Thank you this referral. Cc patient's urologist Electronically Signed by Rafia Quach MD 03/03/2020 02:16 P
[2020-03-03 16:00] VITALS: BP 140/74
== END ==
LOC: M IRPRO 12:31
PROVIDERS: ATTEND Radiology Diagnostic Radiology
DX: N13.9 Obstructive and reflux uropathy, unspecified (principal); Z94.0 Kidney transplant status
CPT/HCPCS: 50435; 99152; 99153; C1729; C1769; J0744; J2250; J3010; Q9967

== ENCOUNTER → 2020-03-16 | Outpatient (CLI) | payer MEDICARE ==
[~2020-03-16] MED LIST changes: -CIPROFLOXACIN/D5W 400 MG/200 ML BAG (J0744) As Ordered ONE; -ISOVUE-300 61% 50ML VIAL As Ordered ONE; -LIDOCAINE 1% MDV 20ML VIAL As Ordered ONE; -MIDAZOLAM INJ 2MG/2ML VIAL (J2250 PER 1MG) As Ordered ONE; -fentaNYL 100 MCG/2 ML INJECTION (J3010) As Ordered ONE
== END ==
LOC: M LABSMTC 09:21
PROVIDERS: ATTEND Internal Medicine Cardiovascular Disease
DX: Z03.818 Encounter for observation for suspected exposure to other biological agents ruled out (principal)
CPT/HCPCS: C9803; U0003

== ENCOUNTER → 2020-03-24 | Outpatient (REF) | payer MEDICARE ==
[2020-03-24 18:15] LABS: INR 1.11
== END ==
LOC: M LAB REF 16:37
PROVIDERS: ATTEND Internal Medicine Nephrology
DX: Z79.01 Long term (current) use of anticoagulants (principal); Z48.22 Encounter for aftercare following kidney transplant; I48.20 Chronic atrial fibrillation, unspecified

== ENCOUNTER → 2020-04-22 | Outpatient (REF) | payer MEDICARE ==
[~2020-04-22] MED LIST changes: +AMLO2.5T3 PO; -ASPI81TA85 PO; +ASPI81TA86 PO; +BACT800T5 PO; +BISA10SU PR; +MERO500V2 IV; +METO1TAB87 PO; +SENN18TA PO
[2020-05-16 09:28] LABS: INR 3.8; PROTHROMBIN TIME 38.3 SECONDS (11.8-14.0)
== END ==
LOC: M LAB REF 17:12
PROVIDERS: ATTEND Internal Medicine Nephrology
DX: Z79.01 Long term (current) use of anticoagulants (principal)

== ENCOUNTER → 2020-04-28 | Outpatient (CLI) | payer MEDICARE | LOC: M RAD 14:00 | PROVIDERS: ATTEND Radiology Diagnostic Radiology | DX: Z53.9 Procedure and treatment not carried out, unspecified reason (principal) ==

== ENCOUNTER 2020-04-29 10:52 | Inpatient (IN) | payer MEDICARE ==
[~2020-04-29 10:52] MED LIST changes: -AMLO2.5T3 PO; -BACT800T5 PO; -BISA10SU PR; -MERO500V2 IV; -METO1TAB87 PO; -SENN18TA PO
[2020-04-29] MEDS ORDERED: MEROPENEM 1GM IN NACL 0.9% 50ML IVBAG (J2185 PER 100MG) As Ordered ONE (13:32)
[2020-04-29] MEDS ORDERED: MEROPENEM 1GM IN NACL 0.9% 50ML IVBAG (J2185 PER 100MG) ONE (13:32)
[2020-04-29] MEDS ORDERED: WARFARIN SOD 3MG TAB ONE (22:10)
[2020-04-29] MEDS ORDERED: hydrOXYzine 25 MG TAB ONE (22:10)
[2020-04-29] MEDS ORDERED: PERCOCET 5MG/325MG TAB ONE (22:10)
[2020-04-29] MEDS ORDERED: hydrOXYzine 25 MG TAB As Ordered ONE (23:10)
[2020-04-29] MEDS ORDERED: PERCOCET 5MG/325MG TAB As Ordered ONE (23:10)
[2020-04-29] MEDS ORDERED: WARFARIN SOD 3MG TAB As Ordered ONE (23:10)
[2020-04-30] MEDS ORDERED: PERCOCET 5MG/325MG TAB As Ordered ONE ×4 (04:31→23:17)
[2020-04-30] MEDS ORDERED: PERCOCET 5MG/325MG TAB ONE ×4 (04:31→23:17)
[2020-04-30] MEDS ORDERED: DULoxetine 30 MG CAP (CYMBALTA) ONE (08:36)
[2020-04-30] MEDS ORDERED: CALCITRIOL 0.25 MCG CAP (S0169) ONE (08:36)
[2020-04-30] MEDS ORDERED: CLOPIDOGREL 75 MG TAB ONE (08:36)
[2020-04-30] MEDS ORDERED: predniSONE 5 MG TAB ONE (08:36)
[2020-04-30] MEDS ORDERED: CLOPIDOGREL 75 MG TAB As Ordered ONE (08:36)
[2020-04-30] MEDS ORDERED: GABAPENTIN 300 MG CAP ONE ×2 (08:36→16:17)
[2020-04-30] MEDS ORDERED: TORSEMIDE 20 MG TAB ONE ×2 (08:37→17:59)
[2020-04-30] MEDS ORDERED: predniSONE 5 MG TAB As Ordered ONE (08:37)
[2020-04-30] MEDS ORDERED: DIGOXIN 0.125 MG TAB As Ordered ONE (08:37)
[2020-04-30] MEDS ORDERED: ASPIRIN 81 MG ENTERIC TAB ONE (08:37)
[2020-04-30] MEDS ORDERED: DIGOXIN 0.125 MG TAB ONE (08:37)
[2020-04-30] MEDS ORDERED: GABAPENTIN 300 MG CAP As Ordered ONE ×2 (08:37→16:17)
[2020-04-30] MEDS ORDERED: CALCITRIOL 0.25 MCG CAP (S0169) As Ordered ONE (08:37)
[2020-04-30] MEDS ORDERED: DULoxetine 30 MG CAP (CYMBALTA) As Ordered ONE (08:37)
[2020-04-30] MEDS ORDERED: TORSEMIDE 20 MG TAB As Ordered ONE ×2 (08:38→17:59)
[2020-04-30] MEDS ORDERED: ASPIRIN 81 MG ENTERIC TAB As Ordered ONE (08:38)
[2020-04-30] MEDS ORDERED: ACETAMINOPHEN TAB 650MG DOSE (2X325MG) As Ordered ONE (09:02)
[2020-04-30] MEDS ORDERED: ACETAMINOPHEN TAB 650MG DOSE (2X325MG) ONE (09:02)
[2020-04-30] MEDS ORDERED: LIDOCAINE 1% MDV 20ML VIAL As Ordered ONE ×2 (09:44→15:15)
[2020-04-30] MEDS ORDERED: MEROPENEM 1GM IN NACL 0.9% 50ML IVBAG (J2185 PER 100MG) As Ordered ONE ×2 (11:25→19:55)
[2020-04-30] MEDS ORDERED: MEROPENEM 1GM IN NACL 0.9% 50ML IVBAG (J2185 PER 100MG) ONE ×2 (11:25→19:55)
[2020-04-30] MEDS ORDERED: MAGNESIUM GLUCONATE 500 MG TAB ONE (13:00)
[2020-04-30] MEDS ORDERED: K-PHOS NEUTRAL 250MG TABLET (SOD.PHOSPHATE/POT.PHOSPHATE) ONE (13:00)
[2020-04-30] MEDS ORDERED: azaTHIOprine 50 MG TAB (J7500) ONE (13:00)
[2020-04-30] MEDS ORDERED: aMILoride 5 MG TAB ONE (13:00)
[2020-04-30] MEDS ORDERED: ISOVUE-300 61% 50ML VIAL As Ordered ONE (15:15)
[2020-04-30] MEDS ORDERED: WARFARIN SOD 3MG TAB ONE (19:55)
[2020-04-30] MEDS ORDERED: hydrOXYzine 25 MG TAB ONE (19:55)
[2020-04-30] MEDS ORDERED: hydrOXYzine 25 MG TAB As Ordered ONE (19:55)
[2020-04-30] MEDS ORDERED: WARFARIN SOD 3MG TAB As Ordered ONE (19:55)
[2020-04-30] MEDS ORDERED: diazePAM 2 MG TAB As Ordered ONE (20:04)
[2020-04-30] MEDS ORDERED: diazePAM 2 MG TAB ONE (20:04)
[2020-05-01] MEDS ORDERED: PERCOCET 5MG/325MG TAB As Ordered ONE ×4 (05:05→18:38)
[2020-05-01] MEDS ORDERED: MEROPENEM 1GM IN NACL 0.9% 50ML IVBAG (J2185 PER 100MG) ONE ×3 (05:05→20:16)
[2020-05-01] MEDS ORDERED: MEROPENEM 1GM IN NACL 0.9% 50ML IVBAG (J2185 PER 100MG) As Ordered ONE ×3 (05:05→20:16)
[2020-05-01] MEDS ORDERED: PERCOCET 5MG/325MG TAB ONE ×3 (05:05→18:38)
[2020-05-01] MEDS ORDERED: CLOPIDOGREL 75 MG TAB As Ordered ONE (09:02)
[2020-05-01] MEDS ORDERED: CLOPIDOGREL 75 MG TAB ONE (09:02)
[2020-05-01] MEDS ORDERED: CALCITRIOL 0.25 MCG CAP (S0169) ONE (09:02)
[2020-05-01] MEDS ORDERED: DULoxetine 30 MG CAP (CYMBALTA) As Ordered ONE (09:02)
[2020-05-01] MEDS ORDERED: DULoxetine 30 MG CAP (CYMBALTA) ONE (09:02)
[2020-05-01] MEDS ORDERED: GABAPENTIN 300 MG CAP ONE ×3 (09:02→20:28)
[2020-05-01] MEDS ORDERED: predniSONE 5 MG TAB ONE (09:02)
[2020-05-01] MEDS ORDERED: CALCITRIOL 0.25 MCG CAP (S0169) As Ordered ONE (09:02)
[2020-05-01] MEDS ORDERED: ASPIRIN 81 MG ENTERIC TAB ONE (09:02)
[2020-05-01] MEDS ORDERED: TORSEMIDE 20 MG TAB ONE ×2 (09:02→16:32)
[2020-05-01] MEDS ORDERED: DIGOXIN 0.125 MG TAB ONE (09:02)
[2020-05-01] MEDS ORDERED: GABAPENTIN 300 MG CAP As Ordered ONE ×3 (09:02→20:28)
[2020-05-01] MEDS ORDERED: DIGOXIN 0.125 MG TAB As Ordered ONE (09:03)
[2020-05-01] MEDS ORDERED: TORSEMIDE 20 MG TAB As Ordered ONE ×2 (09:03→16:35)
[2020-05-01] MEDS ORDERED: predniSONE 5 MG TAB As Ordered ONE (09:03)
[2020-05-01] MEDS ORDERED: ASPIRIN 81 MG ENTERIC TAB As Ordered ONE (09:03)
[2020-05-01] MEDS ORDERED: diazePAM 2 MG TAB As Ordered ONE ×2 (13:44→20:23)
[2020-05-01] MEDS ORDERED: diazePAM 2 MG TAB ONE ×2 (13:44→20:23)
[2020-05-01] MEDS ORDERED: POTASSIUM CHLORIDE 10 MEQ SR TABLET As Ordered ONE (15:05)
[2020-05-01] MEDS ORDERED: POTASSIUM CHLORIDE 10 MEQ SR TABLET ONE (15:05)
[2020-05-01] MEDS ORDERED: hydrOXYzine 25 MG TAB As Ordered ONE (20:16)
[2020-05-01] MEDS ORDERED: WARFARIN SOD 3MG TAB ONE (20:16)
[2020-05-01] MEDS ORDERED: WARFARIN SOD 3MG TAB As Ordered ONE (20:16)
[2020-05-01] MEDS ORDERED: hydrOXYzine 25 MG TAB ONE (20:16)
[2020-05-02] MEDS ORDERED: PERCOCET 5MG/325MG TAB As Ordered ONE ×5 (00:05→23:24)
[2020-05-02] MEDS ORDERED: PERCOCET 5MG/325MG TAB ONE ×4 (00:05→23:24)
[2020-05-02] MEDS ORDERED: MEROPENEM 1GM IN NACL 0.9% 50ML IVBAG (J2185 PER 100MG) As Ordered ONE (05:15)
[2020-05-02] MEDS ORDERED: MEROPENEM 1GM IN NACL 0.9% 50ML IVBAG (J2185 PER 100MG) ONE (05:15)
[2020-05-02] MEDS ORDERED: GABAPENTIN 300 MG CAP As Ordered ONE ×3 (10:18→20:15)
[2020-05-02] MEDS ORDERED: CLOPIDOGREL 75 MG TAB As Ordered ONE (10:18)
[2020-05-02] MEDS ORDERED: DULoxetine 30 MG CAP (CYMBALTA) ONE (10:18)
[2020-05-02] MEDS ORDERED: DULoxetine 30 MG CAP (CYMBALTA) As Ordered ONE (10:18)
[2020-05-02] MEDS ORDERED: POTASSIUM CHLORIDE 10 MEQ SR TABLET ONE (10:18)
[2020-05-02] MEDS ORDERED: CLOPIDOGREL 75 MG TAB ONE (10:18)
[2020-05-02] MEDS ORDERED: CALCITRIOL 0.25 MCG CAP (S0169) ONE (10:18)
[2020-05-02] MEDS ORDERED: GABAPENTIN 300 MG CAP ONE ×3 (10:18→20:15)
[2020-05-02] MEDS ORDERED: DIGOXIN 0.125 MG TAB ONE (10:19)
[2020-05-02] MEDS ORDERED: DIGOXIN 0.125 MG TAB As Ordered ONE (10:19)
[2020-05-02] MEDS ORDERED: ASPIRIN 81 MG ENTERIC TAB ONE (10:19)
[2020-05-02] MEDS ORDERED: POTASSIUM CHLORIDE 10 MEQ SR TABLET As Ordered ONE (10:19)
[2020-05-02] MEDS ORDERED: predniSONE 5 MG TAB As Ordered ONE (10:19)
[2020-05-02] MEDS ORDERED: CALCITRIOL 0.25 MCG CAP (S0169) As Ordered ONE (10:19)
[2020-05-02] MEDS ORDERED: predniSONE 5 MG TAB ONE (10:19)
[2020-05-02] MEDS ORDERED: TORSEMIDE 20 MG TAB As Ordered ONE (10:19)
[2020-05-02] MEDS ORDERED: TORSEMIDE 20 MG TAB ONE (10:19)
[2020-05-02] MEDS ORDERED: ASPIRIN 81 MG ENTERIC TAB As Ordered ONE (10:20)
[2020-05-02] MEDS ORDERED: KCL 10MEQ IN STERILE WATER 100ML ONE (15:09)
[2020-05-02] MEDS ORDERED: KCL 10MEQ IN STERILE WATER 100ML As Ordered ONE (15:11)
[2020-05-02] MEDS ORDERED: WARFARIN SOD 3MG TAB As Ordered ONE (20:15)
[2020-05-02] MEDS ORDERED: WARFARIN SOD 3MG TAB ONE (20:15)
[2020-05-02] MEDS ORDERED: hydrOXYzine 25 MG TAB ONE (23:24)
[2020-05-02] MEDS ORDERED: hydrOXYzine 25 MG TAB As Ordered ONE (23:27)
[2020-05-03] MEDS ORDERED: PERCOCET 5MG/325MG TAB ONE ×4 (05:55→23:44)
[2020-05-03] MEDS ORDERED: PERCOCET 5MG/325MG TAB As Ordered ONE ×4 (05:55→23:44)
[2020-05-03] MEDS ORDERED: predniSONE 5 MG TAB ONE (08:25)
[2020-05-03] MEDS ORDERED: CLOPIDOGREL 75 MG TAB ONE (08:25)
[2020-05-03] MEDS ORDERED: TORSEMIDE 20 MG TAB ONE (08:25)
[2020-05-03] MEDS ORDERED: CLOPIDOGREL 75 MG TAB As Ordered ONE (08:25)
[2020-05-03] MEDS ORDERED: GABAPENTIN 300 MG CAP ONE ×3 (08:25→19:58)
[2020-05-03] MEDS ORDERED: DIGOXIN 0.125 MG TAB ONE ×2 (08:25→08:59)
[2020-05-03] MEDS ORDERED: DULoxetine 30 MG CAP (CYMBALTA) As Ordered ONE (08:25)
[2020-05-03] MEDS ORDERED: DULoxetine 30 MG CAP (CYMBALTA) ONE (08:25)
[2020-05-03] MEDS ORDERED: POTASSIUM CHLORIDE 10 MEQ SR TABLET ONE (08:25)
[2020-05-03] MEDS ORDERED: GABAPENTIN 300 MG CAP As Ordered ONE ×4 (08:25→19:58)
[2020-05-03] MEDS ORDERED: POTASSIUM CHLORIDE 10 MEQ SR TABLET As Ordered ONE (08:25)
[2020-05-03] MEDS ORDERED: predniSONE 5 MG TAB As Ordered ONE (08:26)
[2020-05-03] MEDS ORDERED: ASPIRIN 81 MG ENTERIC TAB As Ordered ONE (08:26)
[2020-05-03] MEDS ORDERED: ASPIRIN 81 MG ENTERIC TAB ONE (08:26)
[2020-05-03] MEDS ORDERED: TORSEMIDE 20 MG TAB As Ordered ONE (08:26)
[2020-05-03] MEDS ORDERED: DIGOXIN 0.125 MG TAB As Ordered ONE ×2 (08:26→08:59)
[2020-05-03] MEDS ORDERED: CYCLOBENZAPRINE 10MG TABLET ONE (18:49)
[2020-05-03] MEDS ORDERED: CYCLOBENZAPRINE 10MG TABLET As Ordered ONE (18:49)
[2020-05-03] MEDS ORDERED: WARFARIN SOD 3MG TAB As Ordered ONE (19:58)
[2020-05-03] MEDS ORDERED: WARFARIN SOD 3MG TAB ONE (19:58)
[2020-05-04] MEDS ORDERED: hydrOXYzine 25 MG TAB As Ordered ONE (02:06)
[2020-05-04] MEDS ORDERED: hydrOXYzine 25 MG TAB ONE (02:06)
[2020-05-04] MEDS ORDERED: ACETAMINOPHEN TAB 650MG DOSE (2X325MG) ONE ×3 (04:02→22:31)
[2020-05-04] MEDS ORDERED: ACETAMINOPHEN TAB 650MG DOSE (2X325MG) As Ordered ONE ×3 (04:02→22:31)
[2020-05-04] MEDS ORDERED: PERCOCET 5MG/325MG TAB ONE ×3 (05:51→18:42)
[2020-05-04] MEDS ORDERED: PERCOCET 5MG/325MG TAB As Ordered ONE ×3 (05:51→18:42)
[2020-05-04] MEDS ORDERED: diazePAM 5 MG TAB ONE (06:28)
[2020-05-04] MEDS ORDERED: diazePAM 5 MG TAB As Ordered ONE (06:28)
[2020-05-04] MEDS ORDERED: CYCLOBENZAPRINE 10MG TABLET As Ordered ONE ×2 (06:38→22:32)
[2020-05-04] MEDS ORDERED: CYCLOBENZAPRINE 10MG TABLET ONE ×2 (06:38→22:31)
[2020-05-04] MEDS ORDERED: MEROPENEM 500MG IN NACL 0.9% 50ML IVBAG (J2185 PER 100MG) ONE (09:00)
[2020-05-04] MEDS ORDERED: GABAPENTIN 300 MG CAP ONE ×3 (09:36→20:01)
[2020-05-04] MEDS ORDERED: CLOPIDOGREL 75 MG TAB ONE (09:36)
[2020-05-04] MEDS ORDERED: POTASSIUM CHLORIDE 10 MEQ SR TABLET ONE (09:36)
[2020-05-04] MEDS ORDERED: DIGOXIN 0.125 MG TAB ONE (09:36)
[2020-05-04] MEDS ORDERED: predniSONE 5 MG TAB ONE (09:36)
[2020-05-04] MEDS ORDERED: DULoxetine 30 MG CAP (CYMBALTA) ONE (09:36)
[2020-05-04] MEDS ORDERED: CLOPIDOGREL 75 MG TAB As Ordered ONE (09:36)
[2020-05-04] MEDS ORDERED: DULoxetine 30 MG CAP (CYMBALTA) As Ordered ONE (09:36)
[2020-05-04] MEDS ORDERED: GABAPENTIN 300 MG CAP As Ordered ONE ×3 (09:37→20:01)
[2020-05-04] MEDS ORDERED: POTASSIUM CHLORIDE 10 MEQ SR TABLET As Ordered ONE (09:37)
[2020-05-04] MEDS ORDERED: predniSONE 5 MG TAB As Ordered ONE (09:37)
[2020-05-04] MEDS ORDERED: DIGOXIN 0.125 MG TAB As Ordered ONE (09:37)
[2020-05-04] MEDS ORDERED: TORSEMIDE 20 MG TAB ONE ×2 (09:37→16:18)
[2020-05-04] MEDS ORDERED: TORSEMIDE 20 MG TAB As Ordered ONE ×2 (09:37→16:18)
[2020-05-04] MEDS ORDERED: ASPIRIN 81 MG ENTERIC TAB ONE (09:37)
[2020-05-04] MEDS ORDERED: ASPIRIN 81 MG ENTERIC TAB As Ordered ONE (09:38)
[2020-05-04] MEDS ORDERED: oxyCODONE 20 MG CR TAB As Ordered ONE ×2 (14:04→20:05)
[2020-05-04] MEDS ORDERED: oxyCODONE 20 MG CR TAB ONE ×2 (14:04→20:05)
[2020-05-04] MEDS ORDERED: LIDOCAINE 5% (LIDODERM) PATCH As Ordered ONE (15:07)
[2020-05-04] MEDS ORDERED: LIDOCAINE 5% (LIDODERM) PATCH ONE (15:07)
[2020-05-04] MEDS ORDERED: WARFARIN SOD 3MG TAB ONE (20:01)
[2020-05-04] MEDS ORDERED: WARFARIN SOD 3MG TAB As Ordered ONE (20:02)
[2020-05-05] MEDS ORDERED: MEROPENEM 500MG IN NACL 0.9% 50ML IVBAG (J2185 PER 100MG) ONE ×2 (09:00→09:59)
[2020-05-05] MEDS ORDERED: DIGOXIN 0.125 MG TAB ONE (09:12)
[2020-05-05] MEDS ORDERED: predniSONE 5 MG TAB ONE (09:12)
[2020-05-05] MEDS ORDERED: DULoxetine 30 MG CAP (CYMBALTA) ONE (09:12)
[2020-05-05] MEDS ORDERED: CLOPIDOGREL 75 MG TAB As Ordered ONE (09:12)
[2020-05-05] MEDS ORDERED: GABAPENTIN 300 MG CAP ONE (09:12)
[2020-05-05] MEDS ORDERED: POTASSIUM CHLORIDE 10 MEQ SR TABLET ONE (09:12)
[2020-05-05] MEDS ORDERED: CALCITRIOL 0.25 MCG CAP (S0169) ONE (09:12)
[2020-05-05] MEDS ORDERED: oxyCODONE 10 MG CR TAB ONE (09:12)
[2020-05-05] MEDS ORDERED: DULoxetine 30 MG CAP (CYMBALTA) As Ordered ONE (09:12)
[2020-05-05] MEDS ORDERED: CLOPIDOGREL 75 MG TAB ONE (09:12)
[2020-05-05] MEDS ORDERED: ASPIRIN 81 MG ENTERIC TAB ONE (09:12)
[2020-05-05] MEDS ORDERED: TORSEMIDE 20 MG TAB ONE (09:12)
[2020-05-05] MEDS ORDERED: DIGOXIN 0.125 MG TAB As Ordered ONE (09:13)
[2020-05-05] MEDS ORDERED: GABAPENTIN 300 MG CAP As Ordered ONE (09:13)
[2020-05-05] MEDS ORDERED: oxyCODONE 10 MG CR TAB As Ordered ONE (09:13)
[2020-05-05] MEDS ORDERED: POTASSIUM CHLORIDE 10 MEQ SR TABLET As Ordered ONE (09:13)
[2020-05-05] MEDS ORDERED: predniSONE 5 MG TAB As Ordered ONE (09:13)
[2020-05-05] MEDS ORDERED: CALCITRIOL 0.25 MCG CAP (S0169) As Ordered ONE (09:13)
[2020-05-05] MEDS ORDERED: ASPIRIN 81 MG ENTERIC TAB As Ordered ONE (09:14)
[2020-05-05] MEDS ORDERED: TORSEMIDE 20 MG TAB As Ordered ONE (09:14)
--- NOTE | 2020-05-30 11:15 | POST-OPPD ---
Postoperative Procedure Note Date Of Procedure: Apr 30, 2020 Time Of Procedure: 11:14 Full procedure note. Egg Packer radiograph demonstrates right transplant kidney nephrostomy in expected location. Nephrostogram and ureterogram performed through the existing right nephrostomy demonstrates no hydronephrosis. The ureter is patent to the bladder. Nephrostomy catheter was cut and removed in its entirety, hemostasis achieved and a sterile dressing was applied to the site. Impression: Right transplant kidney ureter is patent to the bladder. Nephrostomy catheter removed. Thank you for this referral ERICH TATUM MD May 30, 2020 11:15
[2020-06-18 14:43] LABS: INR 2.25; PROTHROMBIN TIME 25.3 SECONDS (12.5-14.3)
[2020-06-18 19:59] LABS: WHITE BLOOD COUNT 7.7 10^3/uL (4.0-10.0)
[2020-06-18 20:00] LABS: BASO % 0.1 % (0.0-1.0); EOS % 1.2 % (0.0-3.0); HEMATOCRIT 32.7 % (42.0-52.0); HEMOGLOBIN 10.2 g/dl (13.5-17.5); LYMPH % 28.7 % (24.0-44.0); MEAN CORPUSCULAR HEMOGLOBIN 28.1 pg (27.0-33.0); MEAN CORPUSCULAR HGB CONC 31.2 g/dl (32.0-36.5); MEAN CORPUSCULAR VOLUME 90.1 fl (80.0-96.0); MONO % 16.8 % (0.0-5.0); NEUTROPHILS % 51.6 % (36.0-66.0); PLATELET COUNT, AUTOMATED 262 10^3/uL (150-450); RED BLOOD COUNT 3.63 10^6/uL (4.30-6.10)
[2020-06-18 20:01] LABS: EOS # 0.1 10^3/uL (0.0-0.5); LYMPH # 2.2 10^3/uL (1.5-5.0); MONO # 1.3 10^3/uL (0.0-0.8)
[2020-06-19 10:58] LABS: INR 1.46; PARTIAL THROMBOPLASTIN TIME 52.2 SECONDS (24.2-38.5); PROTHROMBIN TIME 18.1 SECONDS (12.5-14.3)
[2020-06-19 11:07] LABS: APPEARANCE, URINE TURBID (CLEAR); BACTERIA, URINE AUTO 2+ (NEGATIVE); BILIRUBIN, URINE AUTO NEGATIVE (NEGATIVE); BLOOD, URINE BLOOD 2+ (NEGATIVE); COLOR, URINE AMBER (YELLOW); GLUCOSE, URINE (UA) AUTO NEGATIVE (NEGATIVE); KETONE, URINE AUTO NEGATIVE (NEGATIVE); LEUKOCYTE ESTERASE, URINE AUTO 3+ (NEGATIVE); NITRITE, URINE AUTO NEGATIVE (NEGATIVE); PROTEIN, URINE AUTO 1+ mg/dL (NEGATIVE); RBC, URINE AUTO 29 /HPF (0-3); SPECIFIC GRAVITY URINE AUTO 1.014 (1.002-1.035); SQUAMOUS EPITHELIAL CELL UR AU 0 /HPF (0-6); WBC, URINE AUTO TNTC /HPF (0-3)
[2020-06-19 12:09] LABS: BASO % 0.1 % (0.0-1.0); EOS % 0.1 % (0.0-3.0); HEMOGLOBIN 9.8 g/dl (13.5-17.5); LYMPH % 7.9 % (24.0-44.0); MEAN CORPUSCULAR HEMOGLOBIN 28.1 pg (27.0-33.0); MEAN CORPUSCULAR HGB CONC 31.6 g/dl (32.0-36.5); MEAN CORPUSCULAR VOLUME 88.8 fl (80.0-96.0); NEUTROPHILS # 9.1 10^3/uL (1.5-8.5); NEUTROPHILS % 75.1 % (36.0-66.0); PLATELET COUNT, AUTOMATED 242 10^3/uL (150-450); RED BLOOD COUNT 3.49 10^6/uL (4.30-6.10); WHITE BLOOD COUNT 12.2 10^3/uL (4.0-10.0)
--- NOTE | 2020-06-20 10:14 | REP ---
MIDLINE CATHETER INSERTION WITH NAHED The procedure was performed under the direct supervision of Dr. Warner. PROCEDURE: The risks and benefits of the procedure were explained to the patient and informed consent was obtained. The right basilic vein was localized using ultrasound guidance. The skin was prepped and draped in a sterile fashion. 1% lidocaine was used as a local anesthetic. Using ultrasound guidance, the basilic vein was cannulated and a 0.018 guidewire was inserted. The needle was removed and a 5.5 Malagasy dilator and peel-away sheath was inserted over the guidewire. A 5.5 Malagasy dual lumen catheter was length at a length of 16.5 cm. The dilator was removed and the catheter was inserted over the guidewire. The peel-away sheath was removed and the catheter was flushed with heparinized saline as per hospital protocol. The catheter was affixed to the skin and a sterile dressing was applied. The patient tolerated the procedure well and there were no immediate complications. After the appropriate amount of monitored convalescence, the patient was discharged from the department. VAIBHAV
[2020-06-20 11:42] LABS: INR 2.98; PROTHROMBIN TIME 31.6 SECONDS (12.5-14.3)
[2020-06-20 14:29] LABS: BASO % 0.3 % (0.0-1.0); EOS # 0.1 10^3/uL (0.0-0.5); EOS % 1.3 % (0.0-3.0); HEMATOCRIT 34.1 % (42.0-52.0); HEMOGLOBIN 10.5 g/dl (13.5-17.5); LYMPH # 1.9 10^3/uL (1.5-5.0); LYMPH % 30.7 % (24.0-44.0); MEAN CORPUSCULAR HGB CONC 30.8 g/dl (32.0-36.5); MEAN CORPUSCULAR VOLUME 90.9 fl (80.0-96.0); MONO % 15.3 % (0.0-5.0); NEUTROPHILS % 48.4 % (36.0-66.0); PLATELET COUNT, AUTOMATED 267 10^3/uL (150-450); RED BLOOD COUNT 3.75 10^6/uL (4.30-6.10); WHITE BLOOD COUNT 6.2 10^3/uL (4.0-10.0)
--- NOTE | 2020-06-24 11:59 | ECGEPIP ---
ATRIAL FIBRILLATION LAD LVH WITH STRAIN PRIOR A/S ND SEE SCANNED DOWNTIME REPORT MTDD
[2020-06-25 11:21] LABS: HEMATOCRIT 35.3 % (42.0-52.0); HEMOGLOBIN 10.8 g/dl (13.5-17.5); MEAN CORPUSCULAR HGB CONC 30.6 g/dl (32.0-36.5); MEAN CORPUSCULAR VOLUME 91.5 fl (80.0-96.0); PLATELET COUNT, AUTOMATED 308 10^3/uL (150-450); RED BLOOD COUNT 3.86 10^6/uL (4.30-6.10); WHITE BLOOD COUNT 7.4 10^3/uL (4.0-10.0)
[2020-06-28 07:28] LABS: INR 1.5; PROTHROMBIN TIME 18.5 SECONDS (12.5-14.3)
[2020-06-28 08:42] LABS: BASO % 0.1 % (0.0-1.0); EOS # 0.1 10^3/uL (0.0-0.5); EOS % 0.6 % (0.0-3.0); HEMATOCRIT 32.4 % (42.0-52.0); HEMOGLOBIN 10.2 g/dl (13.5-17.5); LYMPH # 1.8 10^3/uL (1.5-5.0); LYMPH % 17.9 % (24.0-44.0); MEAN CORPUSCULAR HEMOGLOBIN 28.3 pg (27.0-33.0); MEAN CORPUSCULAR HGB CONC 31.5 g/dl (32.0-36.5); MEAN CORPUSCULAR VOLUME 89.8 fl (80.0-96.0); MONO # 1.8 10^3/uL (0.0-0.8); MONO % 18.6 % (0.0-5.0); NEUTROPHILS # 6.1 10^3/uL (1.5-8.5); NEUTROPHILS % 62.1 % (36.0-66.0); PLATELET COUNT, AUTOMATED 236 10^3/uL (150-450); RED BLOOD COUNT 3.61 10^6/uL (4.30-6.10); WHITE BLOOD COUNT 9.9 10^3/uL (4.0-10.0)
[2020-06-28 10:20] LABS: INR 2.1; PROTHROMBIN TIME 24.1 SECONDS (12.5-14.3)
[2020-06-28 11:02] LABS: BASO % 0.1 % (0.0-1.0); EOS # 0.1 10^3/uL (0.0-0.5); EOS % 0.9 % (0.0-3.0); HEMATOCRIT 31.7 % (42.0-52.0); LYMPH # 1.5 10^3/uL (1.5-5.0); LYMPH % 20.3 % (24.0-44.0); MEAN CORPUSCULAR HEMOGLOBIN 28.3 pg (27.0-33.0); MEAN CORPUSCULAR HGB CONC 31.5 g/dl (32.0-36.5); MEAN CORPUSCULAR VOLUME 89.8 fl (80.0-96.0); MONO # 1.3 10^3/uL (0.0-0.8); NEUTROPHILS # 4.5 10^3/uL (1.5-8.5); NEUTROPHILS % 60.8 % (36.0-66.0); PLATELET COUNT, AUTOMATED 228 10^3/uL (150-450); RED BLOOD COUNT 3.53 10^6/uL (4.30-6.10); WHITE BLOOD COUNT 7.5 10^3/uL (4.0-10.0)
--- NOTE | 2020-07-04 16:34 | ECHO ---
DATE OF PROCEDURE: 04/30/2020 Age: 75 Gender: Male Height: 175 cm Weight: 66 kg REFERRING PHYSICIAN: Dr. Riggs INDICATION: Atrial fibrillation, unspecified. MEASUREMENTS: 2D Measurements: Aortic Root 3.3 cm Proximal ascending aorta 3.1 cm Left atrium 4.6 cm Interventricular septum 3.9 cm Left ventricle diastole 1.36 cm Posterior wall 1.22 cm. Left ventricle diastole 5.0 cm. Inferior vena cava 1.0 cm Doppler Measurements: Moderate aortic stenosis. Mild aortic regurgitation Peak aortic valve velocity 320 cm/s Peak aortic valve gradient 41 mmHg Mean aortic valve gradient 42 mmHg Aortic valve VTI 66 cm with dimensionless index 0.30 LVOT velocity 86.5 cm/s LVOT VTI 20.0 cm Mild mitral regurgitation No mitral stenosis Trace tricuspid regurgitation No pulmonic regurgitation MITRAL ANNULAR TISSUE DOPPLER E prime septal 6.1 cm/s E prime lateral 9.0 cm/s DESCRIPTION: Rhythm was atrial fibrillation with controlled ventricular response. Image quality was fair. No pericardial effusion. This was a 2D, M- mode, color flow Doppler, and pulsed wave Doppler examination including mitral annular tissue Doppler. CONCLUSIONS: * Mild concentric left ventricular hypertrophy. Normal regional LV wall motion and wall thickening. Normal LV systolic function. LVEF 65% by visual estimate. Abnormal LV diastolic function (reduced mitral annular tissue Doppler velocity). * Severe left atrial dilatation by visual assessment. * Moderate aortic valve sclerosis of a 3-cuspid aortic valve. Moderate aortic stenosis. Mild aortic regurgitation. * Severe mitral annular calcification. Mild mitral regurgitation. No mitral stenosis. * Otherwise normal appearing echocardiogram Doppler findings. [facility]
[2020-07-06 13:50] LABS: APPEARANCE, URINE CLOUDY (CLEAR); BACTERIA, URINE AUTO 1+ (NEGATIVE); BILIRUBIN, URINE AUTO NEGATIVE (NEGATIVE); BLOOD, URINE BLOOD 1+ (NEGATIVE); COLOR, URINE YELLOW (YELLOW); GLUCOSE, URINE (UA) AUTO NEGATIVE (NEGATIVE); KETONE, URINE AUTO NEGATIVE (NEGATIVE); LEUKOCYTE ESTERASE, URINE AUTO 3+ (NEGATIVE); NITRITE, URINE AUTO NEGATIVE (NEGATIVE); PROTEIN, URINE AUTO 1+ mg/dL (NEGATIVE); RBC, URINE AUTO 39 /HPF (0-3); SPECIFIC GRAVITY URINE AUTO 1.012 (1.002-1.035); SQUAMOUS EPITHELIAL CELL UR AU 0 /HPF (0-6); WBC, URINE AUTO TNTC /HPF (0-3)
[2020-07-13 14:47] LABS: ALBUMIN 3.1 GM/DL (3.2-5.2); ALT/SGPT 14 U/L (12-78); BILIRUBIN,DIRECT 0.3 MG/DL (0.0-0.2); BILIRUBIN,TOTAL 1.1 MG/DL (0.2-1.0); BLOOD UREA NITROGEN 17 MG/DL (7-18); CALCIUM LEVEL 9.5 MG/DL (8.8-10.2); CARBON DIOXIDE LEVEL 34 MEQ/L (21-32); CHLORIDE LEVEL 97 MEQ/L (98-107); CHOLESTEROL LEVEL 201 MG/DL (<200); CHOLESTEROL RISK RATIO 4.187 (<5); CK-MB VALUE MASS < 1.0 NG/ML (<3.6); CPK CREATINE PHOSPHOKINASE 46 U/L (39-308); CREATININE FOR GFR 0.91 MG/DL (0.70-1.30); DIGOXIN LEVEL 0.9 NG/ML (0.5-2.0); GLOMERULAR FILTRATION RATE > 60.0 (>42); GLUCOSE, FASTING 111 MG/DL (70-100); HDL CHOLESTEROL 48 MG/DL (>40); LDL CHOLESTEROL 118 MG/DL (<100); LIPASE 28 U/L (73-393); MB/CK RELATIVE INDEX 2.17 (< OR =4); NON-HDL-C 153 MG/DL; NT-PRO BNP 4665 PG/ML (<450); POTASSIUM SERUM 3.6 MEQ/L (3.5-5.1); SODIUM LEVEL 135 MEQ/L (136-145); TOTAL PROTEIN 6.7 GM/DL (6.4-8.2); TRIGLYCERIDES LEVEL 177 MG/DL (<150); TROPONIN I < 0.02 NG/ML (< 0.10)
[2020-07-21 10:22] LABS: ALBUMIN 2.8 GM/DL (3.2-5.2); ALT/SGPT 12 U/L (12-78); BILIRUBIN,TOTAL 0.3 MG/DL (0.2-1.0); BLOOD UREA NITROGEN 21 MG/DL (7-18); CALCIUM LEVEL 9.6 MG/DL (8.8-10.2); CARBON DIOXIDE LEVEL 35 MEQ/L (21-32); CHLORIDE LEVEL 103 MEQ/L (98-107); CREATININE FOR GFR 0.85 MG/DL (0.70-1.30); GLOMERULAR FILTRATION RATE > 60.0 (>42); GLUCOSE, FASTING 105 MG/DL (70-100); MAGNESIUM LEVEL 1.6 MG/DL (1.8-2.4); POTASSIUM SERUM 3.4 MEQ/L (3.5-5.1); SODIUM LEVEL 142 MEQ/L (136-145); TOTAL PROTEIN 6.1 GM/DL (6.4-8.2)
[2020-07-21 16:42] LABS: ALBUMIN 2.8 GM/DL (3.2-5.2); ALT/SGPT 14 U/L (12-78); BILIRUBIN,TOTAL 0.5 MG/DL (0.2-1.0); BLOOD UREA NITROGEN 19 MG/DL (7-18); CALCIUM LEVEL 9.4 MG/DL (8.8-10.2); CARBON DIOXIDE LEVEL 34 MEQ/L (21-32); CHLORIDE LEVEL 100 MEQ/L (98-107); CREATININE FOR GFR 0.86 MG/DL (0.70-1.30); GLOMERULAR FILTRATION RATE > 60.0 (>42); GLUCOSE, FASTING 104 MG/DL (70-100); POTASSIUM SERUM 3.3 MEQ/L (3.5-5.1); SODIUM LEVEL 139 MEQ/L (136-145); TOTAL PROTEIN 6.2 GM/DL (6.4-8.2)
[2020-07-23 20:47] LABS: ALBUMIN 3.2 GM/DL (3.2-5.2); ALT/SGPT 14 U/L (12-78); BILIRUBIN,TOTAL 0.7 MG/DL (0.2-1.0); BLOOD UREA NITROGEN 15 MG/DL (7-18); CALCIUM LEVEL 9.8 MG/DL (8.8-10.2); CARBON DIOXIDE LEVEL 31 MEQ/L (21-32); CHLORIDE LEVEL 97 MEQ/L (98-107); CREATININE FOR GFR 0.73 MG/DL (0.70-1.30); GLOMERULAR FILTRATION RATE > 60.0 (>42); GLUCOSE, FASTING 101 MG/DL (70-100); POTASSIUM SERUM 4.1 MEQ/L (3.5-5.1); SODIUM LEVEL 133 MEQ/L (136-145)
[2020-07-29 02:52] LABS: ALBUMIN 2.7 GM/DL (3.2-5.2); ALT/SGPT 13 U/L (12-78); BILIRUBIN,TOTAL 0.2 MG/DL (0.2-1.0); BLOOD UREA NITROGEN 17 MG/DL (7-18); CALCIUM LEVEL 9.6 MG/DL (8.8-10.2); CARBON DIOXIDE LEVEL 35 MEQ/L (21-32); CHLORIDE LEVEL 104 MEQ/L (98-107); CREATININE FOR GFR 0.72 MG/DL (0.70-1.30); GLOMERULAR FILTRATION RATE > 60.0 (>42); GLUCOSE, FASTING 114 MG/DL (70-100); PHOSPHORUS LEVEL 2.5 MG/DL (2.5-4.9); POTASSIUM SERUM 3.6 MEQ/L (3.5-5.1); SODIUM LEVEL 142 MEQ/L (136-145); TOTAL PROTEIN 5.9 GM/DL (6.4-8.2)
[2020-07-29 04:12] LABS: BLOOD UREA NITROGEN 21 MG/DL (7-18); CALCIUM LEVEL 9.8 MG/DL (8.8-10.2); CARBON DIOXIDE LEVEL 33 MEQ/L (21-32); CHLORIDE LEVEL 105 MEQ/L (98-107); CREATININE FOR GFR 0.86 MG/DL (0.70-1.30); GLOMERULAR FILTRATION RATE > 60.0 (>42); GLUCOSE, FASTING 103 MG/DL (70-100); MAGNESIUM LEVEL 1.6 MG/DL (1.8-2.4); PHOSPHORUS LEVEL 3.2 MG/DL (2.5-4.9); POTASSIUM SERUM 4.3 MEQ/L (3.5-5.1); SODIUM LEVEL 142 MEQ/L (136-145)
== END 2020-05-05 10:00 | disposition home or self-care (01) | DRG 699 ==
LOC: M ED 10:52 → M PCU 18:56
PROVIDERS: ADMIT Internal Medicine Nephrology; ATTEND Internal Medicine Nephrology
PROC: 0TP5X0Z Removal of Drainage Device from Kidney, External Approach (ICD-10-PCS; principal; 2020-04-30)
DX: T86.13 Kidney transplant infection (principal); N39.0 Urinary tract infection, site not specified; N10 Acute pyelonephritis; I48.91 Unspecified atrial fibrillation; E87.6 Hypokalemia; E83.42 Hypomagnesemia; I10 Essential (primary) hypertension; M19.90 Unspecified osteoarthritis, unspecified site; Y83.0 Surgical operation with transplant of whole organ as the cause of abnormal reaction of the patient, or of later complication, without mention of misadventure at the time of the procedure

== ENCOUNTER 2020-05-06 13:00 | Outpatient (CLI) | payer MEDICARE ==
[2020-05-06] MEDS ORDERED: MEROPENEM 1GM IN NACL 0.9% 50ML IVBAG (J2185 PER 100MG) ONE (13:01)
== END 2020-05-06 14:10 | disposition home or self-care (01) ==
LOC: M INFU 13:00
PROVIDERS: ATTEND Internal Medicine
DX: N39.0 Urinary tract infection, site not specified (principal)
CPT/HCPCS: 96365; J1642; J2185

== ENCOUNTER 2020-05-07 13:00 | Outpatient (CLI) | payer MEDICARE ==
[2020-05-07] MEDS ORDERED: MEROPENEM 1GM IN NACL 0.9% 50ML IVBAG (J2185 PER 100MG) ONE (13:01)
== END 2020-05-07 14:00 ==
LOC: M INFU 13:00
PROVIDERS: ATTEND Internal Medicine
DX: N39.0 Urinary tract infection, site not specified (principal)
CPT/HCPCS: 96374; J1642; J2185

== ENCOUNTER 2020-05-08 13:00 | Outpatient (CLI) | payer MEDICARE ==
[2020-05-08] MEDS ORDERED: MEROPENEM 1GM IN NACL 0.9% 50ML IVBAG (J2185 PER 100MG) ONE (13:39)
== END 2020-05-08 13:50 | disposition home or self-care (01) ==
LOC: M INFU 13:00
PROVIDERS: ATTEND Internal Medicine Nephrology
DX: N39.0 Urinary tract infection, site not specified (principal)
CPT/HCPCS: 96365; J1642; J2185

== ENCOUNTER 2020-05-09 13:30 | Outpatient (CLI) | payer MEDICARE ==
[2020-05-09] MEDS ORDERED: MEROPENEM 1GM IN NACL 0.9% 50ML IVBAG (J2185 PER 100MG) ONE (13:31)
== END 2020-05-09 14:30 | disposition home or self-care (01) ==
LOC: M INFU 13:30
PROVIDERS: ATTEND Internal Medicine Nephrology
DX: N39.0 Urinary tract infection, site not specified (principal)
CPT/HCPCS: 96365; J1642; J2185

== ENCOUNTER → 2020-05-10 | Outpatient (CLI) | payer MEDICARE ==
[~2020-05-10] MED LIST changes: +AMLO2.5T3 PO; +BACT800T5 PO; +BISA10SU PR; +MERO500V2 IV; +MEROPENEM 1GM IN NACL 0.9% 50ML IVBAG (J2185 PER 100MG) ONE; +METO1TAB87 PO; +SENN18TA PO
== END ==
LOC: M OPCLI4PV 15:30
PROVIDERS: ATTEND Internal Medicine Nephrology
DX: N39.0 Urinary tract infection, site not specified (principal)
CPT/HCPCS: 96365; J1642; J2185

== ENCOUNTER → 2020-05-11 | Outpatient (CLI) | payer MEDICARE ==
[~2020-05-11] MED LIST changes: +MEROPENEM 1GM IN NACL 0.9% 50ML IVBAG (J2185 PER 100MG) As Ordered ONE; -MEROPENEM 1GM IN NACL 0.9% 50ML IVBAG (J2185 PER 100MG) ONE
== END ==
LOC: M INFU 14:10
PROVIDERS: ATTEND Internal Medicine Nephrology
DX: N39.0 Urinary tract infection, site not specified (principal)
CPT/HCPCS: 96365; J1642; J2185

== ENCOUNTER 2020-05-12 11:39 | Outpatient (CLI) | payer MEDICARE ==
[~2020-05-12 11:39] MED LIST changes: -AMLO2.5T3 PO; -BACT800T5 PO; -BISA10SU PR; -MERO500V2 IV; -MEROPENEM 1GM IN NACL 0.9% 50ML IVBAG (J2185 PER 100MG) As Ordered ONE; -METO1TAB87 PO; -SENN18TA PO
[2020-05-12] MEDS ORDERED: MEROPENEM 1GM IN NACL 0.9% 50ML IVBAG (J2185 PER 100MG) ONE (13:54)
== END 2020-05-12 14:05 | disposition home or self-care (01) ==
LOC: M INFU 11:39
PROVIDERS: ATTEND Internal Medicine Nephrology
DX: N39.0 Urinary tract infection, site not specified (principal)
CPT/HCPCS: 96365; J1642; J2185

== ENCOUNTER 2020-05-27 11:47 | Inpatient (IN) | payer MEDICARE ==
[~2020-05-27] VITALS: Ht 177.8 cm; Wt 74.0 kg
[2020-05-27 14:09] LABS: BASO % 0.1 % (0.0-1.0); HEMATOCRIT 37.3 % (42.0-52.0); HEMOGLOBIN 11.7 g/dl (13.5-17.5); LYMPH # 1.1 10^3/uL (1.5-5.0); LYMPH % 7.2 % (24.0-44.0); MEAN CORPUSCULAR HEMOGLOBIN 28.3 pg (27.0-33.0); MEAN CORPUSCULAR HGB CONC 31.4 g/dl (32.0-36.5); MEAN CORPUSCULAR VOLUME 90.1 fl (80.0-96.0); MONO # 1.8 10^3/uL (0.0-0.8); MONO % 11.7 % (0.0-5.0); NEUTROPHILS # 12.2 10^3/uL (1.5-8.5); NEUTROPHILS % 80.1 % (36.0-66.0); PLATELET COUNT, AUTOMATED 214 10^3/uL (150-450); RED BLOOD COUNT 4.14 10^6/uL (4.30-6.10); WHITE BLOOD COUNT 15.2 10^3/uL (4.0-10.0)
[2020-05-27 14:21] LABS: PROTHROMBIN TIME 48.1 SECONDS (11.8-14.0)
[2020-05-27 14:22] LABS: PARTIAL THROMBOPLASTIN TIME 81.5 SECONDS (25.0-38.4)
[2020-05-27 14:32] LABS: INR 5.07
[2020-05-27 14:41] LABS: ALBUMIN 3.5 GM/DL (3.2-5.2); ALT/SGPT 13 U/L (12-78); BILIRUBIN,DIRECT 0.2 MG/DL (0.0-0.2); BILIRUBIN,TOTAL 0.9 MG/DL (0.2-1.0); BLOOD UREA NITROGEN 19 MG/DL (7-18); CALCIUM LEVEL 9.7 MG/DL (8.8-10.2); CARBON DIOXIDE LEVEL 29 MEQ/L (21-32); CHLORIDE LEVEL 96 MEQ/L (98-107); CK-MB VALUE MASS < 1.0 NG/ML (<3.6); CPK CREATINE PHOSPHOKINASE 63 U/L (39-308); CREATININE FOR GFR 1.01 MG/DL (0.70-1.30); GLOMERULAR FILTRATION RATE > 60.0 (>42); GLUCOSE, FASTING 122 MG/DL (70-100); LIPASE 30 U/L (73-393); MB/CK RELATIVE INDEX 1.59 (< OR =4); POTASSIUM SERUM 3.8 MEQ/L (3.5-5.1); SODIUM LEVEL 134 MEQ/L (136-145); TOTAL PROTEIN 7.7 GM/DL (6.4-8.2); TROPONIN I < 0.02 NG/ML (< 0.10)
[2020-05-27] MEDS: GASTROGRAFIN SOLUTION 30ML PO SCH ×2 (14:58→15:34)
--- NOTE | 2020-05-27 17:26 | REPVR ---
PROCEDURE INFORMATION: Exam: CT Abdomen And Pelvis Without Contrast Exam date and time: 05/27/2020 5:01 PM Age: 75 years old Clinical indication: Abdominal pain; Additional info: Gen abd pain TECHNIQUE: Imaging protocol: Computed tomography of the abdomen and pelvis without contrast. Radiation optimization: All CT scans at this facility use at least one of these dose optimization techniques: automated exposure control; mA and/or kV adjustment per patient size (includes targeted exams where dose is matched to clinical indication); or iterative reconstruction. COMPARISON: CT ABD PELVIS W/O CONTRAST 04/10/2020 5:11 PM FINDINGS: Lungs: Mild bibasilar atelectasis/fibrotic change. Mediastinal space: A small hiatal hernia is present. Liver: Normal. No mass. Gallbladder and bile ducts: Normal. No calcified stones. No ductal dilation. Pancreas: Normal. No ductal dilation. Spleen: Normal. No splenomegaly. Adrenals: Normal. No mass. Kidneys and ureters: Redemonstration of calcifications in the renal fossa bilaterally. There is a right renal transplant demonstrated. Nonobstructive calculi demonstrated within the transplanted kidney. 7 mm obstructive calculus demonstrated in the collecting system of the transplant at the UV junction. Stomach and bowel: There is poor distention and thickening of the warner of the gastric fundus, body, proximal antrum most likely related to incomplete distention with oral contrast media or water. If there is any suspicion for infiltrative pathology further evaluation suggested. There is increased feces throughout the colon consistent with constipation. Appendix: No evidence of appendicitis. Intraperitoneal space: Unremarkable. No free air. No significant fluid collection. Vasculature: There is severe atherosclerotic calcification of the coronary arteries. Diffuse atherosclerotic changes involving the aorta iliac vessels and branch arteries throughout the abdomen and pelvis. Lymph nodes: Unremarkable. No enlarged lymph nodes. Bladder: There is mild diffuse thickening of the wall of the bladder without significant perivesicular inflammatory changes. Findings may be related to incomplete distention or chronic bladder outlet obstruction however clinical correlation to exclude cystitis suggested. Reproductive: Unremarkable as visualized. Bones/joints: Status post interbody fusion of T11-L2 using transpedicular screws metallic side plates. Compression deformities involving T11, T12, L1, and L2 as well as L3-L4 in 5 to a lesser degree a stable likely representing chronic osteoporotic compression fractures. Severe central spinal stenosis at L2-L3, L3-L4. Decompression surgery status post bilateral laminectomies at L4 with satisfactory decompression of the thecal sac. Postoperative soft tissue changes demonstrated in the posterior paraspinal region. Soft tissues: There is a moderate left inguinal hernia. There is large bowel (sigmoid colon) within the hernia. There is no evidence of incarceration. Impression Status post repair of a mid ventral abdominal hernia using mesh. No recurrent hernia. Other findings: Osteoporosis. IMPRESSION: 1. A small hiatal hernia is present. 2. There is a right renal transplant demonstrated. Nonobstructive calculi demonstrated within the transplanted kidney. 7 mm obstructive calculus demonstrated in the collecting system of the transplant at the UV junction, previously intrarenal in location. 3. There is increased feces throughout the colon consistent with constipation. 4. There is mild diffuse thickening of the wall of the bladder without significant perivesicular inflammatory changes. Findings may be related to incomplete distention or chronic bladder outlet obstruction however clinical correlation to exclude cystitis suggested. Electronically signed by: Altaf Crawford On 05/27/2020 17:26:08 PM
[2020-05-27] MEDS ORDERED: PERCOCET 5MG/325MG TAB PO ONE (18:30)
[2020-05-27] MEDS ORDERED: CYCLOBENZAPRINE 10MG TABLET PO ONE (18:30)
[2020-05-27] MEDS ORDERED: MEROPENEM INJ 1 GM in IV 1 EA IV ONE (18:45)
[2020-05-27] MEDS ORDERED: SODIUM CHLORIDE 0.9% 1000ML IV SCH (19:30)
[2020-05-27] MEDS ORDERED: SENNA 8.6 MG TAB (SENOKOT) PO PRN (19:30)
[2020-05-27] MEDS ORDERED: MOM 30ML SUSPENSION UDC PO PRN (19:30)
[2020-05-27] MEDS ORDERED: TORS20TA2 PO (19:31)
[2020-05-27] MEDS ORDERED: DERMABOND TOPICAL SKIN ADHESIVE TOP ONE (20:45)
[2020-05-27 21:23] VITALS: BP 138/70
--- NOTE | 2020-05-27 22:10 | HPEPDOC ---
[facility] Medical History & Physical Date of Admission May 26, 2020 Date of Service: May 26, 2020 Primary Care Physician: ZOFIA TESFAYE MD @ Attending Physician: MERON HOLMAN MD History and Physical TIME OF SERVICE: 830pm CHIEF COMPLAINT: had a feeling I was getting an infection HISTORY OF PRESENT ILLNESS: This 75 yr old M has a hx of UTIs and came to the hospital because he had a feeling I was getting an infection. The symptoms started last night with chills & urinary urgency; this morning he had sharp constant 10/10 in severity lower abdominal pain that was so severe that he had difficulties standing up. He had nausea but denied having fevers or diarrhea and added that he feels constipated. 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 HOME MEDICATIONS: Please see below. PHYSICAL EXAM Vital Signs Date Time Temp Pulse Resp B/P (MAP) Pulse Ox O2 Delivery O2 Flow Rate FiO2 05/27/20 11:48 100.2 93 20 124/73 (90) 96 Room Air GENERAL APPEARANCE: well-nourished / well developed /NAD HEENT: no scleral icterus / EOMI CARDIOVASCULAR: RRR/NMRG / AV fistula at LUE LUNGS: CTAB on RA ABDOMEN: soft not tender w palpitation MUSCULOSKELETAL: ANN MARIE x 4 / femoral line at right groin INTEGUMENT: no generalized palor / extensive ecchymosis at both upper arms NEUROLOGICAL: CN -12 intact / speech not dysarthric PSYCHIATRIC: A&Ox 3 /able to understand and follow all commands LABORATORY DATA: 05/27/20 13:39 Immature Granulocyte % (Auto) 0.9, Neutrophils (%) (Auto) 80.1H, Lymphocytes (%) (Auto) 7.2L, Monocytes (%) (Auto) 11.7H, Eosinophils (%) (Auto) 0.0, Basophils (%) (Auto) 0.1, Neutrophils # (Auto) 12.2H, Lymphocytes # (Auto) 1.1L, Monocytes # (Auto) 1.8H, Eosinophils # (Auto) 0.0, Basophils # (Auto) 0.0, Nucleated Red Blood Cells % (auto) 0.0, Prothrombin Time 48.1H, Prothromb Time International Ratio 5.07*H, Activated Partial Thromboplast Time 81.5H, Urine Color YELLOW, Urine Appearance HAZY, Urine pH 7.0, Urine Specific [place] 1.005, Urine Protein NEGATIVE, Urine Glucose (UA) NEGATIVE, Urine Ketones NEGATIVE, Urine Blood 2+H, Urine Nitrite NEGATIVE, Urine Bilirubin NEGATIVE, Urine Urobilinogen 0.2, Urine Leukocyte Esterase 3+H, Urine WBC (Auto) 137H, Urine RBC (Auto) 21H, Urine Hyaline Casts (Auto) 0, Urine Bacteria (Auto) NEGATIVE, Urine Squamous Epithelial Cells 0, Urine Mucus (Auto) SMALL, Urine Sperm (Auto) , Anion Gap 9, Glomerular Filtration Rate > 60.0, Calcium Level 9.7, Total Bilirubin 0.9, Direct Bilirubin 0.2, Aspartate Amino Transf (AST/SGOT) 18, Alanine Aminotransferase (ALT/SGPT) 13, Alkaline Phosphatase 91, Total Creatine Kinase 63, Creatine Kinase MB < 1.0, Creatine Kinase MB Relative Index 1.59, Troponin I < 0.02, Total Protein 7.7, Albumin 3.5, Albumin/Globulin Ratio 0.8, Lipase 30L 05/27/20 20:20: Lactic Acid Level 1.0 IMAGING: CT abd/pelvis IMPRESSION: 1. A small hiatal hernia is present. 2. There is a right renal transplant demonstrated. Nonobstructive calculi demonstrated within the transplanted kidney. 7 mm obstructive calculus demonstrated in the collecting system of the transplant at the UV junction, previously intrarenal in location. 3. There is increased feces throughout the colon consistent with constipation. 4. There is mild diffuse thickening of the wall of the bladder without significant perivesicular inflammatory changes. Findings may be related to incomplete distention or chronic bladder outlet obstruction however clinical correlation to exclude cystitis suggested. MICROBIOLOGY: 05/27/20 Blood Culture, Received Pending 05/27/20 Urine Culture, Received Pending 05/27/20 Blood Culture, Received Pending ASSESSMENT: is a 75 yr old w a hx of IgA nephropathy, renal transplant, nephrostomy tubes for obstructing calculi and a fib on Coumadin who presented w c/ of abdominal pain, chills and urinary urgency; he will be admitted for sepsis 2/2 UTI. PLAN: 1 Sepsis 2/2 UTI SIRS criteria HR >90 / WBC >12 Has non diabetic hyperglycemia Lactic acid <2 Qsofa Score = 0 points = low risk Plan: admit to PCU / telemetry / c/w meropenem (bx of allergies) / c/w IVF /f/u blood cx & UA w Cx 2 Supratherapeutic INR Pt is on Coumadin for afib / elevation in INR is likely due to acute illness Plan: hold Coumadin / monitor for bleeding / trend INR 3 Atrial fibrillation Plan: hold Coumadin / c/w digoxin / bc he is having nausea will check serum digoxin level 4 Chronic RAYRAY Hg close to base line Iron panel from March Plan: f/u w PCP to discuss iron supplements on an out pt basis 5 IgA Nephropathy / Renal Transplant s/p Renal transplant 2006, s/p ESRD w HD / left AV fistula is inactive CT showed Non-obstructing 7mm kidney stone Plan: monitor renal function if Cr is up trending day time team may consider Uro consult for stent / c/w azathioprine, calcitriol, sirolimus & torsemide 6 Chronic CAD s/p stent x 2(03/19/2020) despite recent stent pt is not on Plavix, not sure if this is due to hx of bleeding ??? Plan: ASA 7 Chronic HTN Plan: amiloride, torsemide 8 Mod/Severe Aortic Stenosis Last Echo 2018 Plan: f/u w Cardio as scheduled for surveillance 9 Neuropathy Plan: gabapentin 10 Nausea Plan: check serum digoxin levels & order zofran 11 Constipation Plan: stool softeners DVT Px n/a bc of supratherapeutic INR Dispo: home after more than 2 midnights stay Home Medications Scheduled Amiloride HCl (Amiloride HCl) 5 Mg Tablet, 5 MG PO DAILY Aspirin (Aspir 81) 81 Mg Tab, 81 MG PO DAILY Azathioprine (Azathioprine) 50 Mg Tablet, 100 MG PO DAILY Calcitriol (Calcitriol) 0.25 Mcg Cap, 0.25 MCG PO 5XW MON-FRI Digoxin (Digoxin) 125 Mcg Tablet, 125 MCG PO DAILY Duloxetine Hcl (Cymbalta) 30 Mg Capsule.dr, 30 MG PO DAILY Gabapentin (Gabapentin) 300 Mg Capsule, 600 MG PO TID Magnesium Gluconate (Magnesium Gluconate) 27 Mg Tablet, 6 TABS PO BID Melatonin (Melatonin) 10 Mg Capsule, 10 MG PO QHS Oxycodone HCl/Acetaminophen (Oxycodone-Acetaminophen 5-325) 1 Each Tablet, 1 TAB PO Q6H Prednisone (Prednisone) 5 Mg Tab, 5 MG PO DAILY Sirolimus (Rapamune) 1 Mg Tablet, 2 MG PO DAILY Sod Phos Di, [place]/K Phos [place] (Virt-Phos 250 Neutral Tablet) 1 Tab Tab, 2 TAB PO BID Torsemide (Torsemide) 20 Mg Tablet, 20 MG PO DAILY Vitamin B Complex Vit C No.3 (B Complex with Vitamin C) 1 Cap Cap, 1 CAP PO DAILY Warfarin Sodium (Warfarin Sodium) 3 Mg Tablet, 3 MG PO QPM Scheduled PRN Acetaminophen (Acetaminophen) 325 Mg Tablet, 650 MG PO Q4H PRN for PAIN Cyclobenzaprine HCl (Cyclobenzaprine HCl) 10 Mg Tablet, 10 MG PO BID PRN for MUSCLE SPASMS Diazepam (Diazepam) 2 Mg Tablet, 2 MG PO TID PRN for ANXIETY Hydroxyzine HCl (Hydroxyzine HCl) 25 Mg Tablet, 50 MG PO QHS PRN for INSOMNIA Lidocaine (Lidoderm) 5% Adh..patch, 1 PATCH TOP DAILY PRN for PAIN APPLY TO BACK 12HR ON, 12HR OFF Methyl Salicylate/Menthol (Icy Hot Cream) 35.4 Gm Cream..g., 1 APLCT TOP DAILY PRN for BACK PAIN Ondansetron HCl (Zofran) 4 Mg Tablet, 4 MG PO TID PRN for NAUSEA OR VOMITING Polyethylene Glycol 3350 (Miralax) 119 Gm Powder, 17 GRAM PO QHS PRN for CONSTIPATION DISSOLVE IN WATER OR JUICE Allergies Coded Allergies: cefuroxime (Verified Adverse Reaction, Mild, ANXIETY, 12/20/18) codeine (Verified Adverse Reaction, Mild, AGITATION, 12/20/18) doxycycline (Verified Adverse Reaction, Mild, UPSET STOMACH, 01/14/20) lorazepam (Verified Adverse Reaction, Mild, AGITATION, 12/20/18) pregabalin (Verified Adverse Reaction, Mild, ANXIETY, DROWSINESS, 01/14/20) amoxicillin (Verified Adverse Reaction, Unknown, can take few prior to dentist but can not take for 10 days, 01/14/20) ciprofloxacin (Verified Adverse Reaction, Unknown, HEART RACES, 04/10/20) levofloxacin (Verified Adverse Reaction, Unknown, HEART RACES, 02/07/20) tizanidine (Verified Adverse Reaction, Unknown, 01/14/20) A-FIB/CHADSVASC A-FIB History Current/History of A-Fib/PAF?: Yes Current PO Anticoag Therapy: No Treatment Other anticoagulant ordered: elevated INR Reason Anticoagulant not given: Supratherapeutic Warfarin MERON HOLMAN MD May 27, 2020 22:09
[2020-05-27] MEDS ORDERED: K-PHOS NEUTRAL 250MG TABLET (SOD.PHOSPHATE/POT.PHOSPHATE) PO SCH (22:15)
[2020-05-27] MEDS ORDERED: ONDANSETRON 4 MG TAB PO PRN (22:15)
[2020-05-27] MEDS ORDERED: LIDOCAINE 5% (LIDODERM) PATCH TOP PRN (22:15)
[2020-05-27] MEDS ORDERED: MIRALAX *UNIT DOSE* 17GM PACKET PO PRN (22:15)
[2020-05-27] MEDS: MIRALAX *UNIT DOSE* 17GM PACKET PO SCH (22:39)
[2020-05-27] MEDS: NS 1,000 ML IV SCH (22:39)
[2020-05-27] MEDS: GABAPENTIN 300 MG CAP PO SCH (22:39)
[2020-05-28] VITALS (7 sets, daily range): BP systolic 105–154; BP diastolic 52–88
[2020-05-28] MEDS: K-PHOS NEUTRAL 250MG TABLET (SOD.PHOSPHATE/POT.PHOSPHATE) PO SCH ×3 (00:39→20:11)
[2020-05-28] MEDS: MAGNESIUM GLUCONATE 500 MG TAB PO SCH ×3 (00:40→20:11)
[2020-05-28] MEDS ORDERED: PHYTONADIONE 5 MG TAB PO ONE ×2 (01:15→05:15)
[2020-05-28] MEDS: diazePAM 2 MG TAB PO PRN ×3 (01:42→20:10)
[2020-05-28] MEDS: MEROPENEM INJ 500 MG in IV 1 EA IV SCH ×3 (04:27→20:00)
[2020-05-28 06:26] LABS: HEMATOCRIT 33.4 % (42.0-52.0); HEMOGLOBIN 10.5 g/dl (13.5-17.5); MEAN CORPUSCULAR HEMOGLOBIN 28.6 pg (27.0-33.0); MEAN CORPUSCULAR HGB CONC 31.4 g/dl (32.0-36.5); PLATELET COUNT, AUTOMATED 192 10^3/uL (150-450); RED BLOOD COUNT 3.67 10^6/uL (4.30-6.10); WHITE BLOOD COUNT 13.5 10^3/uL (4.0-10.0)
[2020-05-28 06:44] LABS: INR 4.57; PROTHROMBIN TIME 44.3 SECONDS (11.8-14.0)
[2020-05-28 07:12] LABS: BLOOD UREA NITROGEN 20 MG/DL (7-18); CARBON DIOXIDE LEVEL 30 MEQ/L (21-32); CHLORIDE LEVEL 98 MEQ/L (98-107); CREATININE FOR GFR 0.86 MG/DL (0.70-1.30); GLOMERULAR FILTRATION RATE > 60.0 (>42); GLUCOSE, FASTING 114 MG/DL (70-100); MAGNESIUM LEVEL 1.6 MG/DL (1.8-2.4); SODIUM LEVEL 136 MEQ/L (136-145)
--- NOTE | 2020-05-28 07:38 | IPNPDOC ---
Date Seen The patient was seen on 05/28/20. Progress Note SUBJECTIVE: patient seen and examined at bedside. Vital signs were stable. Per overnight report, had bleeding from femoral central line. C/o pain in the back, arms, legs. Has a hx of numerous spinal surgeries. Anxious. OBJECTIVE PHYSICAL EXAMINATION: VITAL SIGNS: Please see below. GENERAL: NAD HEENT: PERRLA CARDIOVASCULAR: RRR, normal S1, S2. RESPIRATORY: lungs CTAB. ABDOMINAL: soft, nontender EXTREMITIES: no edema, no joint deformity NEUROLOGICAL: no focal neuro deficit PSYCHOLOGICAL: calm, cooperative. IMAGING: CT abdo pelvis without contrast (05/27/20) IMPRESSION: 1. A small hiatal hernia is present. 2. There is a right renal transplant demonstrated. Nonobstructive calculi demonstrated within the transplanted kidney. 7 mm obstructive calculus demonstrated in the collecting system of the transplant at the UV junction, previously intrarenal in location. 3. There is increased feces throughout the colon consistent with constipation. 4. There is mild diffuse thickening of the wall of the bladder without significant perivesicular inflammatory changes. Findings may be related to incomplete distention or chronic bladder outlet obstruction however clinical correlation to exclude cystitis suggested. Echocardiogram: last echo 05/2019, showing severe Aortic Sclerosis with moderately severe aortic stenosis. Severe mitral annular calcification. LVEF 65%. DVT prophylaxis ordered?: SCD, LAVERN ASSESSMENT AND PLAN: 75 yo M with a hx of IgA nephropathy (s/p R renal transplant in 2006), afib on AC (coumadin), CAD (s/p stent 02/2020), HTN, chronic anemia, neuropathy presenting to [facility] with fevers, chills, lower abdominal pain, dysuria and frequency. Febrile on arrival (Tmax 100.8). HR > 90. WBC 15.2. Admitted for SIRS from UTI as source. Meropenem for empiric antimicrobial treatment given allergies. Blood and urine cultures were drawn and sent. PROBLEMS: #SIRS: UTI as source. WBC trending down (15.2 -> 13.5). VSS. Meropenem. IVF. F/u BCx. F/u UCx. LA wnl. # Supratherapeutic INR: 5 on admission, warfarin held. S/p 5 mg vit K. INR 4.5 this morning. Continue to hold. Monitor for signs of bleeding, michael from femoral CVC site. #Afib: on digoxin. F/u digoxin level. AC on coumadin, held as INR supratherapeutic. Determine if he follows with cardiology. # Acute on chronic anemia: Hgb 11.7 -> 10.5. Likely dilution, s/p 2L NS bolus. Will require PO iron as outpatient. # IgA Nephropathy: s/p R renal transplant 2006. Prev ESRD, L AV fistula inactive. C/w azathioprine, sirolimus, calcitriol, torsemide. # R renal calculus: non obstructing 7 mm stone, UV junction. Trend Cr. If rising, consider urology consult for stenting. # CAD: s/p stent 03/19/20. Not on plavix, perhaps due to risk of bleeding. ASA for now. #HTN: home med amiloride, torsemide. Check K+ # Aortic Stenosis: Last echo 05/2019. Repeat annually for surveillance. Ensure cardiology follow up. # Neuropathy: home med. Gabapentin 600 mg TID. # Nausea: zofran prn. # Constipation: stool seen on CT. senna. Milk of magnesia. DVT PPX: SCDs, TEDs. Avoid chemoppx as INR supratherapeutic. Cultures: Urine (CC) 05/27/20 - pending Blood (venous) 05/27/20 x 2 - pending VS, I&O, 24H, Fishbone Vital Signs/I&O Vital Signs Date Time Temp Pulse Resp B/P (MAP) Pulse Ox O2 Delivery O2 Flow Rate FiO2 05/28/20 04:00 99.3 74 18 143/64 (90) 93 Room Air I&O- Last 24 Hours up to 6 AM 05/28/20 05:59 Intake Total 50 ml Output Total 100 ml Balance -50 ml Laboratory Data 24H LABS Laboratory Tests 2 05/27/20 13:39: Immature Granulocyte % (Auto) 0.9, Neutrophils (%) (Auto) 80.1H, Lymphocytes (%) (Auto) 7.2L, Monocytes (%) (Auto) 11.7H, Eosinophils (%) (Auto) 0.0, Basophils (%) (Auto) 0.1, Neutrophils # (Auto) 12.2H, Lymphocytes # (Auto) 1.1L, Monocytes # (Auto) 1.8H, Eosinophils # (Auto) 0.0, Basophils # (Auto) 0.0, Nucleated Red Blood Cells % (auto) 0.0, Prothrombin Time 48.1H, Prothromb Time International Ratio 5.07*H, Activated Partial Thromboplast Time 81.5H, Urine Color YELLOW, Urine Appearance HAZY, Urine pH 7.0, Urine Specific [place] 1.005, Urine Protein NEGATIVE, Urine Glucose (UA) NEGATIVE, Urine Ketones NEGATIVE, Urine Blood 2+H, Urine Nitrite NEGATIVE, Urine Bilirubin NEGATIVE, Urine Urobilinogen 0.2, Urine Leukocyte Esterase 3+H, Urine WBC (Auto) 137H, Urine RBC (Auto) 21H, Urine Hyaline Casts (Auto) 0, Urine Bacteria (Auto) NEGATIVE, Urine Squamous Epithelial Cells 0, Urine Mucus (Auto) SMALL, Urine Sperm (Auto) , Anion Gap 9, Glomerular Filtration Rate > 60.0, Calcium Level 9.7, Total Bilirubin 0.9, Direct Bilirubin 0.2, Aspartate Amino Transf (AST/SGOT) 18, Alanine Aminotransferase (ALT/SGPT) 13, Alkaline Phosphatase 91, Total Creatine Kinase 63, Creatine Kinase MB < 1.0, Creatine Kinase MB Relative Index 1.59, Troponin I < 0.02, Total Protein 7.7, Albumin 3.5, Albumin/Globulin Ratio 0.8, Lipase 30L 05/27/20 20:20: Lactic Acid Level 1.0 05/28/20 05:48: Nucleated Red Blood Cells % (auto) 0.0, Prothrombin Time 44.3H, Prothromb Time International Ratio 4.57, Anion Gap 8, Glomerular Filtration Rate > 60.0, Calcium Level 9.0, Magnesium Level 1.6L, Digoxin Level 1.0 CBC/BMP Laboratory Tests 05/27/20 13:39 05/28/20 05:48 Microbiology Microbiology 05/27/20 Blood Culture, Received Pending 05/27/20 Urine Culture, Received Pending 05/27/20 Blood Culture, Received Pending LUDA GAY MD May 28, 2020 07:38
[2020-05-28] MEDS: MIRALAX *UNIT DOSE* 17GM PACKET PO SCH ×2 (08:01→20:08)
[2020-05-28] MEDS: azaTHIOprine 50 MG TAB (J7500) PO SCH (08:01)
[2020-05-28] MEDS: VITAMIN B COMPLEX/VIT C CAP PO SCH (08:02)
[2020-05-28] MEDS: DIGOXIN 0.125 MG TAB PO SCH (08:03)
[2020-05-28] MEDS: CALCITRIOL 0.25 MCG CAP (S0169) PO SCH (08:03)
[2020-05-28] MEDS: ASPIRIN 81 MG ENTERIC TAB PO SCH (08:03)
[2020-05-28] MEDS: aMILoride 5 MG TAB PO SCH (08:03)
[2020-05-28] MEDS: TORSEMIDE 20 MG TAB PO SCH (08:03)
[2020-05-28] MEDS: predniSONE 5 MG TAB PO SCH (08:04)
[2020-05-28] MEDS: ACETAMINOPHEN TAB 650MG DOSE (2X325MG) PO PRN (08:04)
[2020-05-28] MEDS: DULoxetine 30 MG CAP (CYMBALTA) PO SCH (08:04)
[2020-05-28] MEDS: GABAPENTIN 300 MG CAP PO SCH ×3 (08:04→20:10)
[2020-05-28] MEDS: CYCLOBENZAPRINE 10MG TABLET PO PRN (09:45)
[2020-05-28] MEDS ORDERED: MAG SULF 1GM/100ML (MAG RUN) 1 GM in IV 1 EA IV ONE (11:00)
[2020-05-28] MEDS: PERCOCET 5MG/325MG TAB PO SCH ×2 (11:27→17:32)
[2020-05-28] MEDS: NS 1,000 ML IV SCH (11:36)
[2020-05-28] MEDS: RAPAMUNE 1 MG PO SCH (13:27)
[2020-05-28] MEDS: hydrOXYzine 25 MG TAB PO PRN (20:10)
[2020-05-28] MEDS: **NOTE PATIENT COMMENT** MISC XX SCH (20:13)
[2020-05-29] VITALS (11 sets, daily range): BP systolic 107–142; BP diastolic 54–81
[2020-05-29] MEDS: PERCOCET 5MG/325MG TAB PO SCH ×5 (00:52→23:57)
[2020-05-29] MEDS: NS 1,000 ML IV SCH (00:52)
[2020-05-29] MEDS: ACETAMINOPHEN TAB 650MG DOSE (2X325MG) PO PRN ×2 (03:01→17:31)
[2020-05-29] MEDS: MEROPENEM INJ 500 MG in IV 1 EA IV SCH ×3 (03:01→20:32)
[2020-05-29 06:04] LABS: BASO % 0.1 % (0.0-1.0); EOS % 0.2 % (0.0-3.0); HEMATOCRIT 23.8 % (42.0-52.0); LYMPH # 1.4 10^3/uL (1.5-5.0); LYMPH % 15.7 % (24.0-44.0); MEAN CORPUSCULAR HEMOGLOBIN 28.7 pg (27.0-33.0); MEAN CORPUSCULAR HGB CONC 30.7 g/dl (32.0-36.5); MEAN CORPUSCULAR VOLUME 93.7 fl (80.0-96.0); MONO # 1.7 10^3/uL (0.0-0.8); MONO % 19.3 % (0.0-5.0); NEUTROPHILS # 5.7 10^3/uL (1.5-8.5); NEUTROPHILS % 63.8 % (36.0-66.0); PLATELET COUNT, AUTOMATED 120 10^3/uL (150-450); RED BLOOD COUNT 2.54 10^6/uL (4.30-6.10); WHITE BLOOD COUNT 8.9 10^3/uL (4.0-10.0)
[2020-05-29 06:15] LABS: INR 1.19; PROTHROMBIN TIME 15.4 SECONDS (11.8-14.0)
[2020-05-29 06:16] LABS: HEMOGLOBIN 7.3 g/dl (13.5-17.5)
[2020-05-29 06:31] LABS: ALBUMIN 2.6 GM/DL (3.2-5.2); ALT/SGPT 11 U/L (12-78); BILIRUBIN,TOTAL 0.5 MG/DL (0.2-1.0); BLOOD UREA NITROGEN 25 MG/DL (7-18); CALCIUM LEVEL 8.8 MG/DL (8.8-10.2); CARBON DIOXIDE LEVEL 23 MEQ/L (21-32); CHLORIDE LEVEL 103 MEQ/L (98-107); CREATININE FOR GFR 0.83 MG/DL (0.70-1.30); GLOMERULAR FILTRATION RATE > 60.0 (>42); GLUCOSE, FASTING 138 MG/DL (70-100); POTASSIUM SERUM 3.8 MEQ/L (3.5-5.1); SODIUM LEVEL 136 MEQ/L (136-145); TOTAL PROTEIN 5.8 GM/DL (6.4-8.2)
--- NOTE | 2020-05-29 09:33 | CR ---
DATE OF CONSULTATION: 05/28/2020 REQUESTING PHYSICIAN: Dr Albino Melara MD REASON FOR CONSULTATION: Management of pyelonephritis of renal allograft. CHIEF COMPLAINT: Patient presented to the hospital yesterday with fever, chills, pain at the transplant site and feeling weak. HISTORY OF PRESENT ILLNESS: Mr. David Kwon is a 75-year-old male with a past medical history of end-stage renal disease; status post renal transplant, right lower quadrant with history of hydronephrosis of the renal allograft which needed nephrostomy tube placement secondary to obstructing calculi. Nephrostomy tube stayed from August of 2019 up until April of 2020. At that point, since on the repeat imaging there was no obstructing calculi and nephrostomy was clamped for almost a month and he was having recent UTIs, the nephrostomy tube was removed and he finished a course of I.V. Meropenem. Patient remained asymptomatic for a few weeks, however, he presented to the Emergency Room yesterday with constant 10/10 pain in the right lower quadrant at the renal allograft site. He had chills and felt like he had another episode of UTI. Patient was admitted under hospitalist service last night with sepsis secondary to UTI. Nephrology service was called for further help in the management of this patient. I saw and evaluated the patient today morning at the bedside. He needed a triple lumen catheter in the right groin last time because of hypertension and he needed I.V. antibiotics and I.V. fluids. His catheter has been removed today morning, however, patient still reports mild amount of pain at the renal allograft site. 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 PAST SURGICAL HISTORY: Multiple spinal surgeries in the past because of spinal stenosis, hernia surgery and renal allograft as mentioned above, history of percutaneous nephrostomy in August of 2019, which was removed recently about a month ago. The nephrostomy was in the renal allograft. FAMILY HISTORY: No significant family history of end-stage renal disease requiring hemodialysis. SOCIAL HISTORY: He denies any smoking, illicit drug abuse or alcohol abuse. ALLERGIES: Patient is allergic to Amoxicillin, Cefuroxime, Ciprofloxacin, Codeine, Doxycycline, Levaquin, Lorazepam, Pregabalin, Tizanidine. REVIEW OF SYSTEMS: CONSTITUTIONAL: Patient reports feeling weak and tired. EYES: He denies any blurry vision or double vision. ENT: He denies any dysphagia or odynophagia. CARDIOVASCULAR: Denies any chest pain or palpitations. RESPIRATORY: He denies any shortness of breath. GI: He reports decreased appetite. GENITOURINARY: He reports pain of the renal allograft in the right lower quadrant. MUSCULOSKELETAL: He denies any muscle aches and pains. SKIN: He denies any rashes or ulcers. HEMATOLOGIC/ONCOLOGIC: He denies any easy bleeding or bruising. MEMBER OF TECHNICAL STAFF: He denies any strokes or seizures. All other review of systems negative. PHYSICAL EXAMINATION: GENERAL: Patient is awake, alert and oriented x3, laying in bed, mild painful distress. VITAL SIGNS: Temperature 97.8 degrees Fahrenheit, blood pressure 105/52, pulse 53, respiratory rate 18, saturating 97% on room air. Temperature on arrival 101.4 degrees Fahrenheit. He was tachycardic on arrival. INTAKE AND OUTPUT: Urine output recorded as 620 mL. Weight in the bed scale is 69.2 kg. HEAD AND NECK: Extraocular muscles intact. Pupils equally round, reactive to light. Neck is supple. He has an old surgical scar on the back of his neck. There is no JVD. CARDIOVASCULAR: S1, S2. Regular rate. 1+ edema of the bilateral lower extremities. RESPIRATORY: Chest is clear to auscultation bilaterally. Bilateral equal air entry. No rales or rhonchi. ABDOMEN: Soft, positive bowel sounds. Moderate amount of tenderness on deep palpation of the renal allograft site. Bladder is not palpable. MUSCULOSKELETAL: No clubbing or cyanosis. Pulses are 2+. Old surgical scars in the spine are noted. MEMBER OF TECHNICAL STAFF: No focal deficit at this time. He moves all extremities and follows commands. LABORATORY REVIEW: CBC showed WBC 15.2 on arrival and today morning 13.5, hemoglobin 10.5, platelets 192,000. INR 5 yesterday and 4.5 today. BMP showed sodium 136, potassium 4, chloride 98, bicarb 30, BUN 20, creatinine 0.86. Magnesium 1.6, calcium 9. MICROBIOLOGY: Blood cultures are negative. Urine culture is pending. IMAGING STUDIES: A CAT scan of the abdomen and pelvis was done on arrival, which showed a small hiatal hernia, right renal transplant, non-obstructive calculi demonstrated within the transplanted kidney. A 7 mm obstructive calculus demonstrated in the collecting system of the renal allograft at UV junction. Previously this stone was intrarenal in location. There was constipation seen in the colon. CURRENT INPATIENT MEDICATIONS: Patient was given a dose of magnesium sulfate 1 gram I.V. by myself today. He continues to be on Meropenem 500 mg p.o. every 8 hours. He is on normal saline at 80 cc an hour. Tylenol p.r.n., Amiloride 5 mg p.o. daily, aspirin 81 mg p.o. daily, Imuran 100 mg p.o. daily, Calcitriol 0.25 mcg p.o. five days a week, Flexeril 10 mg p.o. b.i.d., Diazepam 2 mg p.o. three times daily p.r.n. anxiety, Digoxin 0.125 mg p.o. daily, Duloxetine 30 mg p.o. daily, Gabapentin 600 mg p.o. three times a day, Hydroxyzine p.r.n., magnesium 3 grams p.o. twice a day, Milk of Magnesia p.r.n., Zofran 4 mg p.o. three times a day p.r.n., Percocet one tablet every 6 hours p.r.n., Vitamin K 5 mg one dose was given, K-phos 200 mg p.o. twice a day, prednisone 5 mg p.o. daily, Sirolimus 2 mg p.o. daily, Senna two tablets p.o. twice a day, Torsemide 20 mg p.o. daily and Vitamin B Complex. ASSESSMENT AND PLAN: 1. Pyelonephritis of the renal allograft: Patient has a recurrent pyelonephritis. He is either resistant or allergic to most of the antibiotics. He responds very well to I.V. Meropenem. Continue current dose of Meropenem at this time. He is adequately hydrated. WBC is improving. Blood pressures are better. 2. Stone in the transplant kidneys ureter: Patients renal function is stable. I am hopeful that he should be able to pass the stone, however if his symptoms do not improve, I would have to get urology on board to see if we need to get any procedure on the ureter done. 3. Hypomagnesemia: Patient was already given I.V. magnesium. He continues to be on high dose of oral magnesium and he continues to be on Amiloride 5 mg p.o. daily for chronic hypomagnesemia. 4. Renal allograft status: Continue current dose of Azathioprine, prednisone and Sirolimus. 5. Secondary hyperparathyroidism: Continue current dose of Calcitriol 0.25 mcg five days a week. 6. Atrial fibrillation: Digoxin is at 0.125 mg p.o. daily. He is anticoagulated with Coumadin. He has supratherapeutic INR and he was given Vitamin K. 7. Chronic hypophosphatemia: Continue current dose of K-Phos 250 mg p.o. twice a day. Thank you for involving me in the care of this patient. I will be happy to follow the patient along with you tomorrow morning. MTDD
[2020-05-29] MEDS: RAPAMUNE 1 MG PO SCH (09:43)
[2020-05-29] MEDS: MAGNESIUM GLUCONATE 500 MG TAB PO SCH ×2 (09:44→20:24)
[2020-05-29] MEDS: TORSEMIDE 20 MG TAB PO SCH (09:44)
[2020-05-29] MEDS: VITAMIN B COMPLEX/VIT C CAP PO SCH (09:44)
[2020-05-29] MEDS: ASPIRIN 81 MG ENTERIC TAB PO SCH (09:44)
[2020-05-29] MEDS: K-PHOS NEUTRAL 250MG TABLET (SOD.PHOSPHATE/POT.PHOSPHATE) PO SCH ×2 (09:44→20:24)
[2020-05-29] MEDS: azaTHIOprine 50 MG TAB (J7500) PO SCH (09:44)
[2020-05-29] MEDS: DIGOXIN 0.125 MG TAB PO SCH (09:45)
[2020-05-29] MEDS: GABAPENTIN 300 MG CAP PO SCH ×3 (09:45→20:24)
[2020-05-29] MEDS: predniSONE 5 MG TAB PO SCH (09:45)
[2020-05-29] MEDS: aMILoride 5 MG TAB PO SCH (09:45)
[2020-05-29] MEDS: CALCITRIOL 0.25 MCG CAP (S0169) PO SCH (09:45)
[2020-05-29] MEDS: DULoxetine 30 MG CAP (CYMBALTA) PO SCH (09:45)
[2020-05-29] MEDS: MIRALAX *UNIT DOSE* 17GM PACKET PO SCH ×2 (09:46→20:25)
[2020-05-29 12:44] LABS: MAGNESIUM LEVEL 1.9 MG/DL (1.8-2.4); PHOSPHORUS LEVEL 2.1 MG/DL (2.5-4.9)
[2020-05-29 15:27] LABS: HEMOGLOBIN 10.5 g/dl (13.5-17.5)
--- NOTE | 2020-05-29 17:21 | IPNPDOC ---
Date Seen The patient was seen on 05/29/20. Progress Note SUBJECTIVE: patient seen and examined at bedside. Vital signs were stable. Per overnight report, had bleeding from femoral central line. C/o pain in the back, arms, legs. Has a hx of numerous spinal surgeries. Anxious. OBJECTIVE PHYSICAL EXAMINATION: VITAL SIGNS: Please see below. GENERAL: NAD HEENT: PERRLA CARDIOVASCULAR: RRR, normal S1, S2. RESPIRATORY: lungs CTAB. ABDOMINAL: soft, nontender EXTREMITIES: no edema, no joint deformity NEUROLOGICAL: no focal neuro deficit PSYCHOLOGICAL: calm, cooperative. IMAGING: CT abdo pelvis without contrast (05/27/20) IMPRESSION: 1. A small hiatal hernia is present. 2. There is a right renal transplant demonstrated. Nonobstructive calculi demonstrated within the transplanted kidney. 7 mm obstructive calculus demonstrated in the collecting system of the transplant at the UV junction, previously intrarenal in location. 3. There is increased feces throughout the colon consistent with constipation. 4. There is mild diffuse thickening of the wall of the bladder without significant perivesicular inflammatory changes. Findings may be related to incomplete distention or chronic bladder outlet obstruction however clinical correlation to exclude cystitis suggested. Echocardiogram: last echo 05/2019, showing severe Aortic Sclerosis with moderately severe aortic stenosis. Severe mitral annular calcification. LVEF 65%. DVT prophylaxis ordered?: SCD, LAVERN ASSESSMENT AND PLAN: 75 yo M with a hx of IgA nephropathy (s/p R renal transplant in 2006), afib on AC (coumadin), CAD (s/p stent 02/2020), HTN, chronic anemia, neuropathy presenting to [facility] with fevers, chills, lower abdominal pain, dysuria and frequency. Febrile on arrival (Tmax 100.8). HR > 90. WBC 15.2. Admitted for SIRS from UTI as source. Meropenem for empiric antimicrobial treatment given allergies. Blood and urine cultures were drawn and sent. PROBLEMS: #SIRS: UTI as source. WBC trending down (15.2 -> 13.5). VSS. Meropenem. IVF. BCX positive for Enterobacter Coacae.. Sensitive to meropenem. Continue. # Supratherapeutic INR: INR 1.19. No bleeding. Resume warfarin at reduced dose 2 mg. Check INR in am. #Afib: on digoxin. Digoxin level 1.0 . AC on coumadin, resumed. # Acute on chronic anemia: Hg 7.3 this morning. Transfuse 1 unit. Repeat HH 10.5. # IgA Nephropathy: s/p R renal transplant 2006. Prev ESRD, L AV fistula inactive. C/w azathioprine, sirolimus, calcitriol, torsemide. Dr. Caballero following. # R renal calculus: non obstructing 7 mm stone, UV junction. Trend Cr. If rising, consider urology consult for stenting. Pain seems to have resolved. P juilo chambers. # Hypomagnesemia: magnesium PO. Amiloride 5 mg PO daily. # CAD: s/p stent 03/19/20. Not on plavix, perhaps due to risk of bleeding. ASA for now. #HTN: home med amiloride, torsemide. Check K+ # Aortic Stenosis: Last echo 05/2019. Repeat annually for surveillance. Ensure cardiology follow up. # Neuropathy: home med. Gabapentin 600 mg TID. # Nausea: zofran prn. # Constipation: stool seen on CT. senna. Milk of magnesia. DVT PPX: SCDs, TEDs. Avoid chemoppx as INR supratherapeutic. Cultures: Urine (CC) 05/27/20 - pending Blood (venous) 05/27/20 x 2 - pending VS, I&O, 24H, Fishbone Vital Signs/I&O Vital Signs Date Time Temp Pulse Resp B/P (MAP) Pulse Ox O2 Delivery O2 Flow Rate FiO2 05/29/20 16:00 98.7 62 17 118/58 (78) 97 Room Air I&O- Last 24 Hours up to 6 AM 05/29/20 05:59 Intake Total 4385 ml Output Total 995 ml Balance 3390 ml Laboratory Data 24H LABS Laboratory Tests 2 05/29/20 05:45: Immature Granulocyte % (Auto) 0.9, Neutrophils (%) (Auto) 63.8, Lymphocytes (%) (Auto) 15.7L, Monocytes (%) (Auto) 19.3H, Eosinophils (%) (Auto) 0.2, Basophils (%) (Auto) 0.1, Neutrophils # (Auto) 5.7, Lymphocytes # (Auto) 1.4L, Monocytes # (Auto) 1.7H, Eosinophils # (Auto) 0.0, Basophils # (Auto) 0.0, Nucleated Red Blood Cells % (auto) 0.0, Prothrombin Time 15.4H, Prothromb Time International Ratio 1.19, Anion Gap 10, Glomerular Filtration Rate > 60.0, Calcium Level 8.8, Total Bilirubin 0.5, Aspartate Amino Transf (AST/SGOT) 23, Alanine Aminotransferase (ALT/SGPT) 11L, Alkaline Phosphatase 64, Total Protein 5.8#L, Albumin 2.6#L, Albumin/Globulin Ratio 0.8 05/29/20 11:59: Phosphorus Level 2.1L, Magnesium Level 1.9 CBC/BMP Laboratory Tests 05/29/20 05:45 05/29/20 15:10 Microbiology Microbiology 05/27/20 Blood Culture - Preliminary, Resulted No Growth after 48 hours. All Specime... 05/27/20 Urine Culture - Final, Complete Enterobacter Cloacae Complex 05/27/20 Blood Culture - Preliminary, Resulted No Growth after 48 hours. All Specime... LUDA GAY MD May 29, 2020 17:21
[2020-05-29] MEDS ORDERED: K-PHOS NEUTRAL 250MG TABLET (SOD.PHOSPHATE/POT.PHOSPHATE) PO ONE (18:00)
[2020-05-29] MEDS: diazePAM 2 MG TAB PO PRN (18:49)
[2020-05-29] MEDS: CYCLOBENZAPRINE 10MG TABLET PO PRN (18:52)
[2020-05-29] MEDS: hydrOXYzine 25 MG TAB PO PRN (20:24)
[2020-05-29] MEDS ORDERED: WARFARIN SOD 3MG TAB PO SCH (21:00)
[2020-05-29] MEDS: **NOTE PATIENT COMMENT** MISC XX SCH (21:00)
[2020-05-30] VITALS: BP 114/67
[2020-05-30 04:00] VITALS: BP 109/59
[2020-05-30] MEDS: MEROPENEM INJ 500 MG in IV 1 EA IV SCH ×3 (04:50→20:49)
[2020-05-30] MEDS: PERCOCET 5MG/325MG TAB PO SCH ×4 (05:25→23:38)
[2020-05-30 08:00] VITALS: BP 118/65
[2020-05-30] MEDS: MIRALAX *UNIT DOSE* 17GM PACKET PO SCH ×2 (09:00→20:50)
[2020-05-30] MEDS: RAPAMUNE 1 MG PO SCH (09:00)
[2020-05-30] MEDS: VITAMIN B COMPLEX/VIT C CAP PO SCH (10:46)
[2020-05-30] MEDS: K-PHOS NEUTRAL 250MG TABLET (SOD.PHOSPHATE/POT.PHOSPHATE) PO SCH ×2 (10:46→20:50)
[2020-05-30] MEDS: predniSONE 5 MG TAB PO SCH (10:46)
[2020-05-30] MEDS: aMILoride 5 MG TAB PO SCH (10:46)
[2020-05-30] MEDS: MAGNESIUM GLUCONATE 500 MG TAB PO SCH ×2 (10:46→20:50)
[2020-05-30] MEDS: GABAPENTIN 300 MG CAP PO SCH ×3 (10:47→20:50)
[2020-05-30] MEDS: azaTHIOprine 50 MG TAB (J7500) PO SCH (10:47)
[2020-05-30] MEDS: CALCITRIOL 0.25 MCG CAP (S0169) PO SCH (10:48)
[2020-05-30] MEDS: DULoxetine 30 MG CAP (CYMBALTA) PO SCH (10:48)
[2020-05-30] MEDS: DIGOXIN 0.125 MG TAB PO SCH (10:48)
[2020-05-30] MEDS: TORSEMIDE 20 MG TAB PO SCH (10:48)
[2020-05-30] MEDS: ASPIRIN 81 MG ENTERIC TAB PO SCH (10:48)
[2020-05-30 11:01] LABS: BASO % 0.1 % (0.0-1.0); EOS # 0.1 10^3/uL (0.0-0.5); EOS % 0.6 % (0.0-3.0); HEMATOCRIT 35.8 % (42.0-52.0); HEMOGLOBIN 11.4 g/dl (13.5-17.5); LYMPH # 1.2 10^3/uL (1.5-5.0); LYMPH % 12.4 % (24.0-44.0); MEAN CORPUSCULAR HEMOGLOBIN 28.7 pg (27.0-33.0); MEAN CORPUSCULAR HGB CONC 31.8 g/dl (32.0-36.5); MEAN CORPUSCULAR VOLUME 90.2 fl (80.0-96.0); MONO # 1.1 10^3/uL (0.0-0.8); MONO % 11.3 % (0.0-5.0); NEUTROPHILS % 74.6 % (36.0-66.0); PLATELET COUNT, AUTOMATED 213 10^3/uL (150-450); RED BLOOD COUNT 3.97 10^6/uL (4.30-6.10); WHITE BLOOD COUNT 9.4 10^3/uL (4.0-10.0)
[2020-05-30] MEDS: diazePAM 2 MG TAB PO PRN ×2 (11:01→18:56)
[2020-05-30 11:02] LABS: BASO % 0.1 % (0.0-1.0); EOS # 0.1 10^3/uL (0.0-0.5); EOS % 0.5 % (0.0-3.0); HEMATOCRIT 36.2 % (42.0-52.0); HEMOGLOBIN 11.4 g/dl (13.5-17.5); LYMPH # 1.1 10^3/uL (1.5-5.0); LYMPH % 11.6 % (24.0-44.0); MEAN CORPUSCULAR HEMOGLOBIN 28.4 pg (27.0-33.0); MEAN CORPUSCULAR HGB CONC 31.5 g/dl (32.0-36.5); MEAN CORPUSCULAR VOLUME 90.3 fl (80.0-96.0); MONO # 1.1 10^3/uL (0.0-0.8); MONO % 11.7 % (0.0-5.0); NEUTROPHILS # 7.1 10^3/uL (1.5-8.5); NEUTROPHILS % 75.3 % (36.0-66.0); PLATELET COUNT, AUTOMATED 208 10^3/uL (150-450); RED BLOOD COUNT 4.01 10^6/uL (4.30-6.10); WHITE BLOOD COUNT 9.5 10^3/uL (4.0-10.0)
[2020-05-30 11:09] LABS: INR 1.12; PROTHROMBIN TIME 14.7 SECONDS (11.8-14.0)
[2020-05-30 11:25] LABS: ALBUMIN 2.9 GM/DL (3.2-5.2); ALT/SGPT 13 U/L (12-78); BILIRUBIN,TOTAL 0.6 MG/DL (0.2-1.0); BLOOD UREA NITROGEN 17 MG/DL (7-18); CALCIUM LEVEL 9.6 MG/DL (8.8-10.2); CARBON DIOXIDE LEVEL 29 MEQ/L (21-32); CHLORIDE LEVEL 101 MEQ/L (98-107); CREATININE FOR GFR 0.79 MG/DL (0.70-1.30); GLOMERULAR FILTRATION RATE > 60.0 (>42); GLUCOSE, FASTING 149 MG/DL (70-100); POTASSIUM SERUM 3.7 MEQ/L (3.5-5.1); SODIUM LEVEL 138 MEQ/L (136-145); TOTAL PROTEIN 6.5 GM/DL (6.4-8.2)
[2020-05-30 11:40] LABS: BLOOD UREA NITROGEN 17 MG/DL (7-18); CALCIUM LEVEL 9.6 MG/DL (8.8-10.2); CARBON DIOXIDE LEVEL 28 MEQ/L (21-32); CHLORIDE LEVEL 101 MEQ/L (98-107); CREATININE FOR GFR 0.76 MG/DL (0.70-1.30); GLOMERULAR FILTRATION RATE > 60.0 (>42); GLUCOSE, FASTING 153 MG/DL (70-100); PHOSPHORUS LEVEL 1.6 MG/DL (2.5-4.9); POTASSIUM SERUM 3.6 MEQ/L (3.5-5.1); SODIUM LEVEL 135 MEQ/L (136-145)
[2020-05-30 12:00] VITALS: BP 134/84
--- NOTE | 2020-05-30 12:01 | IPNPDOC ---
Date Seen The patient was seen on 05/30/20. Progress Note SUBJECTIVE: patient seen and examined at bedside. Vital signs were stable. No acute events overnight. No fevers. Doing well. OBJECTIVE PHYSICAL EXAMINATION: VITAL SIGNS: Please see below. GENERAL: NAD HEENT: PERRLA CARDIOVASCULAR: RRR, normal S1, S2. RESPIRATORY: lungs CTAB. ABDOMINAL: soft, nontender EXTREMITIES: no edema, no joint deformity NEUROLOGICAL: no focal neuro deficit PSYCHOLOGICAL: calm, cooperative. IMAGING: CT abdo pelvis without contrast (05/27/20) IMPRESSION: 1. A small hiatal hernia is present. 2. There is a right renal transplant demonstrated. Nonobstructive calculi demonstrated within the transplanted kidney. 7 mm obstructive calculus demonstrated in the collecting system of the transplant at the UV junction, previously intrarenal in location. 3. There is increased feces throughout the colon consistent with constipation. 4. There is mild diffuse thickening of the wall of the bladder without significant perivesicular inflammatory changes. Findings may be related to incomplete distention or chronic bladder outlet obstruction however clinical correlation to exclude cystitis suggested. Echocardiogram: last echo 05/2019, showing severe Aortic Sclerosis with moderately severe aortic stenosis. Severe mitral annular calcification. LVEF 65%. DVT prophylaxis ordered?: SCD, LAVERN ASSESSMENT AND PLAN: 75 yo M with a hx of IgA nephropathy (s/p R renal tra nsplant in 2006), afib on AC (coumadin), CAD (s/p stent 02/2020), HTN, chronic anemia, neuropathy presenting to [facility] with fevers, chills, lower abdominal pain, dysuria and frequency. Febrile on arrival (Tmax 100.8). HR > 90. WBC 15.2. Admitted for SIRS from UTI as source. Meropenem for empiric antimicrobial treatment given allergies. Blood and urine cultures were drawn and sent. PROBLEMS: #SIRS: UTI as source. WBC trending down (15.2 -> 13.5). VSS. Meropenem. IVF. BCX positive for Enterobacter Coacae. Discussed with Dr. Caballero, patient has failed PO therapy several times due to resistance or has been unable to comply given allergies. Will require an additional 4 days of meropenem therapy before DC. # Supratherapeutic INR: INR 1.19. No bleeding. Resume warfarin at reduced dose 2 mg. Check INR in am. #Afib: on digoxin. Digoxin level 1.0 . AC on coumadin, resumed. # Acute on chronic anemia: Hg 7.3 this morning. Transfuse 1 unit. Repeat HH 10.5. # IgA Nephropathy: s/p R renal transplant 2006. Prev ESRD, L AV fistula inactive. C/w azathioprine, sirolimus, calcitriol, torsemide. Dr. Caballero following. # R renal calculus: obstructing 7 mm stone at UV junction of transplant. Cr has been normal. Discussed with Dr. Pool. CT scan does not show hydronephrosis. Recommends close f/u nephrology, may need to have intervention by IR or transplant center in [facility] if develops hydronephrosis to remove stone. Watch for now. # Hypomagnesemia: magnesium PO. Amiloride 5 mg PO daily. # CAD: s/p stent 03/19/20. Not on plavix, perhaps due to risk of bleeding. ASA for now. #HTN: home med amiloride, torsemide. Check K+ # Aortic Stenosis: Last echo 05/2019. Repeat annually for surveillance. Ensure cardiology follow up. # Neuropathy: home med. Gabapentin 600 mg TID. # Nausea: zofran prn. # Constipation: stool seen on CT. senna. Milk of magnesia. Dispo: working with PT to clear stairs, likely return to prior level of function. DVT PPX: SCDs, TEDs. Resumed warfarin. Cultures: Urine (CC) 05/27/20 - positive for Enterobacter Cloacae (sens to meropenem) Blood (venous) 05/27/20 x 2 - pending Abx: Meropenem: 05/28/20 - until 06/03/20. VS, I&O, 24H, Fishbone Vital Signs/I&O Vital Signs Date Time Temp Pulse Resp B/P (MAP) Pulse Ox O2 Delivery O2 Flow Rate FiO2 05/30/20 10:48 94 05/30/20 08:00 98.1 16 118/65 (82) 95 Room Air I&O- Last 24 Hours up to 6 AM 05/30/20 06:00 Intake Total 2880 ml Output Total 2265 ml Balance 615 ml Laboratory Data 24H LABS Laboratory Tests 2 05/29/20 11:59: Phosphorus Level 2.1L, Magnesium Level 1.9 05/30/20 10:22: Immature Granulocyte % (Auto) 0.8, Neutrophils (%) (Auto) 75.3H, Lymphocytes (%) (Auto) 11.6L, Monocytes (%) (Auto) 11.7H, Eosinophils (%) (Auto) 0.5, Basophils (%) (Auto) 0.1, Neutrophils # (Auto) 7.1, Lymphocytes # (Auto) 1.1L, Monocytes # (Auto) 1.1H, Eosinophils # (Auto) 0.1, Basophils # (Auto) 0.0, Nucleated Red Blood Cells % (auto) 0.0 05/30/20 10:23: Phosphorus Level 1.6#L, Immature Granulocyte % (Auto) 1.0, Neutrophils (%) (Auto) 74.6H, Lymphocytes (%) (Auto) 12.4L, Monocytes (%) (Auto) 11.3H, Eosinophils (%) (Auto) 0.6, Basophils (%) (Auto) 0.1, Neutrophils # (Auto) 7.0, Lymphocytes # (Auto) 1.2L, Monocytes # (Auto) 1.1H, Eosinophils # (Auto) 0.1, Basophils # (Auto) 0.0, Nucleated Red Blood Cells % (auto) 0.0, Prothrombin Time 14.7H, Prothromb Time International Ratio 1.12, Anion Gap 6L, Glomerular Pete tration Rate > 60.0, Calcium Level 9.6, Total Bilirubin 0.6, Aspartate Amino Transf (AST/SGOT) 17, Alanine Aminotransferase (ALT/SGPT) 13, Alkaline Phosphatase 78, Total Protein 6.5, Albumin 3.0L, Albumin/Globulin Ratio 0.8 CBC/BMP Laboratory Tests 05/29/20 15:10 05/30/20 10:22 05/30/20 10:23 Microbiology Microbiology 05/27/20 Blood Culture - Preliminary, Resulted No Growth after 48 hours. All Specime... 05/27/20 Urine Culture - Final, Complete Enterobacter Cloacae Complex 05/27/20 Blood Culture - Preliminary, Resulted No Growth after 48 hours. All Specime... LUDA GAY MD May 30, 2020 12:01
[2020-05-30 14:00] VITALS: BP 136/76
[2020-05-30] MEDS ORDERED: LIDOCAINE 1% MDV 20ML VIAL As Ordered ONE (15:12)
--- NOTE | 2020-05-30 15:57 | IPN ---
DATE: 05/29/2020 SUBJECTIVE: Patient was seen and examined at the bedside today morning. He is afebrile, hemodynamically stable. He reports that he had a lot of bleeding from the right groin from where the triple-lumen catheter was removed. He needed sandbags in the groin. His hemoglobin has dropped today. Otherwise, he reports that he is afebrile, he is feeling much better, and pain at the transplant site is improving. OBJECTIVE: Vital signs: Temperature is 97.8 degrees Fahrenheit, blood pressure 109/64, pulse is 58, respiratory rate of 18, saturating 967% on room air. Intake and output: Urine output recorded is 1.9 liters yesterday. Weight in the bed scale is 71.1 kg. PHYSICAL EXAMINATION: General: Patient is awake, alert, oriented times three, laying in bed, no apparent distress. Head and neck exam: Extraocular muscles intact. Pupils equally round and reactive to light. Neck is supple. He has an old surgical scar in the back of the neck. Cardiovascular: S1, S2, regular rate. 2+ edema of the bilateral lower extremities. Respiratory: Chest is clear to auscultation bilaterally. Bilateral equal air entry. No rales or rhonchi. Abdomen: Soft, positive bowel sounds. Right lower quadrant renal allograft is noted. There is no tenderness at this time and there is a dressing in the right groin with no hematoma noted. Musculoskeletal: No clubbing or cyanosis. Pulses are 2+. 2+ edema as noted above. Central nervous system (TEMPORARY STAFF ACCOUNTANT): No focal deficits. Power is 5/5 in all extremities. LABORATORY REVIEW: CBC showed WBC of 8.9, hemoglobin 7.3, platelets are 120. BMP done today morning showed sodium 136, potassium 3.8, chloride 103, bicarbonate 23, BUN 25, creatinine is 0.83, calcium 8.8, phosphorous 2.1, magnesium 1.9, albumin is 2.6. Microbiology: Urine culture is growing Enterobacter cloacae complex which is sensitive to meropenem that patient is receiving. CURRENT INPATIENT MEDICATIONS: Patients medications were all reviewed by myself. There is no significant change in the medications today as compared with yesterday. IV fluids have been stopped now. One unit of packed red blood cell (PRBC) transfusion has been ordered. ASSESSMENT AND PLAN: 1. Pyelonephritis of the renal allograft. Patient is on meropenem which adequately covers Enterobacter cloacae complex. Continue current medication. 2. Stone in the transplant ureter. There is no evidence of change in the renal function. He is making good amount of urine. Continue to monitor for now. Patients pain is also getting better. Most likely patient has passed the stone or hopefully will pass the stone soon. Repeat imaging will be done in a few days. 3. Hypomagnesemia. Continue current dose of oral magnesium and amiloride. 4. Renal allograft status. Continue current dose of sirolimus, prednisone, and azathioprine. 5. Atrial fibrillation. Patient is on digoxin. He is anticoagulated with Coumadin. INR was supratherapeutic and he bled from the groin. He was given vitamin K. INR is 1.1 today morning. 6. Anemia after recent hemorrhage from the right groin. Patient is status post one unit of packed red blood cell (PRBC) transfusion. Repeat hemoglobin after transfusion. MTDD
[2020-05-30] MEDS: WARFARIN SOD 2MG TAB PO SCH (16:37)
[2020-05-30] MEDS: SODIUM CHLORIDE 0.9% INJ 10 ML SYR IV SCH (18:47)
[2020-05-30 20:00] VITALS: BP 123/73
[2020-05-30] MEDS: **NOTE PATIENT COMMENT** MISC XX SCH (20:51)
[2020-05-31] VITALS: BP 105/62
[2020-05-31 01:24] LABS: BLOOD UREA NITROGEN 22 MG/DL (7-18); CALCIUM LEVEL 9.6 MG/DL (8.8-10.2); CARBON DIOXIDE LEVEL 33 MEQ/L (21-32); CHLORIDE LEVEL 101 MEQ/L (98-107); CREATININE FOR GFR 0.74 MG/DL (0.70-1.30); GLOMERULAR FILTRATION RATE > 60.0 (>42); GLUCOSE, FASTING 107 MG/DL (70-100); MAGNESIUM LEVEL 1.8 MG/DL (1.8-2.4); PHOSPHORUS LEVEL 2.4 MG/DL (2.5-4.9); POTASSIUM SERUM 3.3 MEQ/L (3.5-5.1); SODIUM LEVEL 138 MEQ/L (136-145)
[2020-05-31] MEDS: MEROPENEM INJ 500 MG in IV 1 EA IV SCH ×3 (03:57→20:39)
[2020-05-31 04:00] VITALS: BP 105/59
[2020-05-31 04:46] LABS: BASO % 0.1 % (0.0-1.0); EOS # 0.1 10^3/uL (0.0-0.5); EOS % 0.7 % (0.0-3.0); HEMATOCRIT 31.2 % (42.0-52.0); LYMPH # 1.8 10^3/uL (1.5-5.0); LYMPH % 26.1 % (24.0-44.0); MEAN CORPUSCULAR HEMOGLOBIN 29.1 pg (27.0-33.0); MEAN CORPUSCULAR HGB CONC 32.1 g/dl (32.0-36.5); MEAN CORPUSCULAR VOLUME 90.7 fl (80.0-96.0); MONO # 1.2 10^3/uL (0.0-0.8); MONO % 16.6 % (0.0-5.0); NEUTROPHILS # 3.9 10^3/uL (1.5-8.5); NEUTROPHILS % 54.7 % (36.0-66.0); PLATELET COUNT, AUTOMATED 200 10^3/uL (150-450); RED BLOOD COUNT 3.44 10^6/uL (4.30-6.10); WHITE BLOOD COUNT 7.1 10^3/uL (4.0-10.0)
[2020-05-31 05:07] LABS: INR 1.28; PROTHROMBIN TIME 16.2 SECONDS (11.8-14.0)
[2020-05-31 05:09] LABS: ALBUMIN 2.4 GM/DL (3.2-5.2); ALT/SGPT 11 U/L (12-78); BILIRUBIN,TOTAL 0.4 MG/DL (0.2-1.0); BLOOD UREA NITROGEN 23 MG/DL (7-18); CALCIUM LEVEL 9.4 MG/DL (8.8-10.2); CARBON DIOXIDE LEVEL 31 MEQ/L (21-32); CHLORIDE LEVEL 103 MEQ/L (98-107); CREATININE FOR GFR 0.73 MG/DL (0.70-1.30); GLOMERULAR FILTRATION RATE > 60.0 (>42); GLUCOSE, FASTING 114 MG/DL (70-100); POTASSIUM SERUM 3.2 MEQ/L (3.5-5.1); SODIUM LEVEL 139 MEQ/L (136-145); TOTAL PROTEIN 6.1 GM/DL (6.4-8.2)
[2020-05-31] MEDS: PERCOCET 5MG/325MG TAB PO SCH ×4 (05:54→23:26)
[2020-05-31] MEDS: SODIUM CHLORIDE 0.9% INJ 10 ML SYR IV SCH ×2 (05:55→18:08)
[2020-05-31 08:00] VITALS: BP 108/57
[2020-05-31] MEDS ORDERED: POTASSIUM CHLORIDE 10 MEQ SR TABLET PO ONE (09:00)
[2020-05-31] MEDS ORDERED: K-PHOS ORIGINAL (POT.ACID PHOSPHATE) 500MG TAB PO ONE (09:00)
[2020-05-31] MEDS: MAGNESIUM GLUCONATE 500 MG TAB PO SCH ×2 (09:33→20:41)
[2020-05-31] MEDS: MIRALAX *UNIT DOSE* 17GM PACKET PO SCH ×2 (09:33→20:46)
[2020-05-31] MEDS: GABAPENTIN 300 MG CAP PO SCH ×3 (09:33→20:40)
[2020-05-31] MEDS: DIGOXIN 0.125 MG TAB PO SCH (09:33)
[2020-05-31] MEDS: predniSONE 5 MG TAB PO SCH (09:33)
[2020-05-31] MEDS: K-PHOS NEUTRAL 250MG TABLET (SOD.PHOSPHATE/POT.PHOSPHATE) PO SCH ×2 (09:34→20:40)
[2020-05-31] MEDS: ASPIRIN 81 MG ENTERIC TAB PO SCH (09:34)
[2020-05-31] MEDS: DULoxetine 30 MG CAP (CYMBALTA) PO SCH (09:34)
[2020-05-31] MEDS: aMILoride 5 MG TAB PO SCH (09:34)
[2020-05-31] MEDS: VITAMIN B COMPLEX/VIT C CAP PO SCH (09:34)
[2020-05-31] MEDS: TORSEMIDE 20 MG TAB PO SCH (09:34)
[2020-05-31] MEDS: azaTHIOprine 50 MG TAB (J7500) PO SCH (09:35)
[2020-05-31] MEDS: RAPAMUNE 1 MG PO SCH (09:35)
[2020-05-31 12:00] VITALS: BP 149/82
[2020-05-31] MEDS: diazePAM 2 MG TAB PO PRN (12:19)
[2020-05-31] MEDS: SODIUM CHLORIDE 0.9% INJ 10 ML SYR IV PRN (13:11)
--- NOTE | 2020-05-31 14:49 | REPVR ---
PROCEDURE INFORMATION: Exam: CT Abdomen And Pelvis Without Contrast Exam date and time: 05/31/2020 2:12 PM Age: 75 years old Clinical indication: Other: Nephrolithiasis in transplant kidney; Prior surgery; Surgery date: 6+ months; Surgery type: Kidney transplant TECHNIQUE: Imaging protocol: Computed tomography of the abdomen and pelvis without contrast. Radiation optimization: All CT scans at this facility use at least one of these dose optimization techniques: automated exposure control; mA and/or kV adjustment per patient size (includes targeted exams where dose is matched to clinical indication); or iterative reconstruction. COMPARISON: CT ABD/PEL W/PO CONTRAST ONLY 05/27/2020 4:55 PM FINDINGS: Tubes, catheters and devices: Right iliac fossa transplant. Lungs: Mild atelectatic changes slightly is increased in the lung bases. Mediastinal space: Small stable hiatal hernia. Liver: Normal. No mass. Gallbladder and bile ducts: Normal. No calcified stones. No ductal dilation. Pancreas: Normal. No ductal dilation. Spleen: Normal. No splenomegaly. Adrenals: Calcifications are stable involving the adrenal glands. Kidneys and ureters: Calcifications stable within the left renal fossa. Both [place] kidneys have been removed. Suspect a cyst stable within the right kidney at 20 mm. Stable nonobstructing left renal stone measuring 4 mm. Slight dilatation of the proximal left ureter. The stone that was previously seen has been removed or has migrated to the renal pelvis measuring 7 mm. Other additional pelvic calcifications are seen. Stomach and bowel: Unremarkable. No obstruction. No mucosal thickening. Appendix: No evidence of appendicitis. Intraperitoneal space: Unremarkable. No free air. No significant fluid collection. Vasculature: Stable vascular calcifications. Lymph nodes: Unremarkable. No enlarged lymph nodes. Bladder: Unremarkable as visualized. Reproductive: Unremarkable as visualized. Bones/joints: Stable postoperative changes is in the spine with compression fractures. Soft tissues: Stable colon within the left inguinal hernia. No signs of obstruction. Other findings: Artifact from the patient's arms by his side. Moderate amount of retained feces. Anterior abdominal wall stable mesh. IMPRESSION: 1. There is prominence of the left right proximal renal transplant ureter. The calcification that was seen at the UPJ is no longer present. I suspect this is migrated back into the renal pelvis. 2. Nonobstructing right intrarenal stone and suspected cyst. 3. Retained feces. 4. Left inguinal hernia. 5. Stable spine. 6. Postoperative nephrectomies with calcifications of the adrenal glands and calcifications peripherally rimmed involving the left perinephric space. Electronically signed by: Nahum Vernon On 05/31/2020 14:48:41 PM
[2020-05-31 16:00] VITALS: BP 124/77
[2020-05-31] MEDS: WARFARIN SOD 2MG TAB PO SCH (16:17)
--- NOTE | 2020-05-31 19:27 | IPNPDOC ---
Date Seen The patient was seen on 05/31/20. Progress Note SUBJECTIVE: patient seen and examined at bedside. Vital signs were stable. No acute events overnight. No fevers. Doing well. OBJECTIVE PHYSICAL EXAMINATION: VITAL SIGNS: Please see below. GENERAL: NAD HEENT: PERRLA CARDIOVASCULAR: RRR, normal S1, S2. RESPIRATORY: lungs CTAB. ABDOMINAL: soft, nontender EXTREMITIES: no edema, no joint deformity NEUROLOGICAL: no focal neuro deficit PSYCHOLOGICAL: calm, cooperative. IMAGING: CT abdo pelvis without contrast (05/27/20) IMPRESSION: 1. A small hiatal hernia is present. 2. There is a right renal transplant demonstrated. Nonobstructive calculi demonstrated within the transplanted kidney. 7 mm obstructive calculus demonstrated in the collecting system of the transplant at the UV junction, previously intrarenal in location. 3. There is increased feces throughout the colon consistent with constipation. 4. There is mild diffuse thickening of the wall of the bladder without significant perivesicular inflammatory changes. Findings may be related to incomplete distention or chronic bladder outlet obstruction however clinical correlation to exclude cystitis suggested. CT abdo pel w PO contrast only (05/31/20) 1. There is prominence of the left right proximal renal transplant ureter. The calcification that was seen at the UPJ is no longer present. I suspect this is migrated back into the renal pelvis. 2. Nonobstructing right intrarenal stone and suspected cyst. 3. Retained feces. 4. Left inguinal hernia. 5. Stable spine. 6. Postoperative nephrectomies with calcifications of the adrenal glands and calcifications peripherally rimmed involving the left perinephric space. Echocardiogram: last echo 05/2019, showing severe Aortic Sclerosis with moderately severe aortic stenosis. Severe mitral annular calcification. LVEF 65%. DVT prophylaxis ordered?: SCD, LAVERN ASSESSMENT AND PLAN: 75 yo M with a hx of IgA nephropathy (s/p R renal transplant in 2006), afib on AC (coumadin), CAD (s/p stent 02/2020), HTN, chronic anemia, neuropathy presenting to [facility] with fevers, chills, lower abdominal pain, dysuria and frequency. Febrile on arrival (Tmax 100.8). HR > 90. WBC 15.2. Admitted for SIRS from UTI as source. Meropenem for empiric antimicrobial treatment given allergies. Blood cultures positive for Enterobacter Cloacae, sensitive to meropenem. PROBLEMS: 1.SIRS: UTI as source. WBC trending down (15.2 -> 13.5). VSS. Meropenem. IVF. BCX positive for Enterobacter Cloacae. Discussed with Dr. Caballero, patient has failed PO therapy several times due to resistance or has been unable to comply given allergies. Will require an additional 3 days of meropenem therapy before DC. 2. Supratherapeutic INR: INR 1.19. No bleeding. Resume warfarin at reduced dose 2 mg. Check INR in am. 3. Afib: on digoxin. Digoxin level 1.0. Had episodes of RVR, 4 runs of non sustained vtach. Start metoprolol 12.5 mg BID. AC on coumadin, resumed. 4. Acute on chronic anemia: Hg 7.3 this morning. Transfuse 1 unit. Repeat HH 10.5. 5. IgA Nephropathy: s/p R renal transplant 2006. Prev ESRD, L AV fistula inactive. C/w azathioprine, sirolimus, calcitriol, torsemide. Dr. Caballero following. 6. R renal calculus: obstructing 7 mm stone at UV junction of transplant. Repeat CT shows passage of stone from UPJ junction. Cr has been normal. Discussed with Dr. Pool. CT scan does not show hydronephrosis. Recommends close f/u nephrol ogy, may need to have intervention by IR or transplant center in [place] if develops hydronephrosis to remove stone. Watch for now. 7. Hypomagnesemia: magnesium PO. Amiloride 5 mg PO daily. 8. CAD: s/p stent 03/19/20. Not on plavix, perhaps due to risk of bleeding. ASA for now. 9. HTN: home med amiloride, torsemide. Check K+ 10. Aortic Stenosis: Last echo 05/2019. Repeat annually for surveillance. Ensure cardiology follow up. 11. Neuropathy: home med. Gabapentin 600 mg TID. 12. Nausea: zofran prn. 13. Constipation: stool seen on CT. senna. Milk of magnesia. Dispo: working with PT to clear stairs, likely return to prior level of function. DVT PPX: SCDs, TEDs. Resumed warfarin. Cultures: Urine (CC) 05/27/20 - positive for Enterobacter Cloacae (sens to meropenem) Blood (venous) 05/27/20 x 2 - pending Abx: Meropenem: 05/28/20 - until 06/03/20. VS, I&O, 24H, Fishbone Vital Signs/I&O Vital Signs Date Time Temp Pulse Resp B/P (MAP) Pulse Ox O2 Delivery O2 Flow Rate FiO2 05/31/20 18:40 18 05/31/20 16:00 97.7 79 124/77 (93) 98 Room Air I&O- Last 24 Hours up to 6 AM 05/31/20 06:00 Intake Total 700 ml Output Total 1725 ml Balance -1025 ml Laboratory Data 24H LABS Laboratory Tests 2 05/30/20 23:36: Bedside Glucose (Misc Panel) 92 05/31/20 00:16: Anion Gap 4L, Glomerular Filtration Rate > 60.0, Calcium Level 9.6, Phosphorus Level 2.4#L, Magnesium Level 1.8 05/31/20 04:29: Anion Gap 5L, Glomerular Filtration Rate > 60.0, Calcium Level 9.4, Immature Granulocyte % (Auto) 1.8, Neutrophils (%) (Auto) 54.7, Lymphocytes (%) (Auto) 26.1, Monocytes (%) (Auto) 16.6H, Eosinophils (%) (Auto) 0.7, Basophils (%) (Auto) 0.1, Neutrophils # (Auto) 3.9, Lymphocytes # (Auto) 1.8, Monocytes # (Auto) 1.2H, Eosinophils # (Auto) 0.1, Basophils # (Auto) 0.0, Nucleated Red Blood Cells % (auto) 0.0, Prothrombin Time 16.2H, Prothromb Time International Ratio 1.28, Total Bilirubin 0.4, Aspartate Amino Transf (AST/SGOT) 16, Alanine Aminotransferase (ALT/SGPT) 11L, Alkaline Phosphatase 73, Total Protein 6.1L, Albumin 2.4L, Albumin/Globulin Ratio 0.6 CBC/BMP Laboratory Tests 05/31/20 00:16 05/31/20 04:29 Microbiology Microbiology 05/27/20 Blood Culture - Preliminary, Resulted No Growth after 72 hours. All specime... 05/27/20 Urine Culture - Final, Complete Enterobacter Cloacae Complex 05/27/20 Blood Culture - Preliminary, Resulted No Growth after 72 hours. All specime... POLINKEVYCH,LUDA MD May 31, 2020 19:27
[2020-05-31 20:00] VITALS: BP 117/75
[2020-05-31] MEDS: METOPROLOL TART 12.5 MG PER 1/2 TAB PO SCH (20:40)
[2020-05-31] MEDS: **NOTE PATIENT COMMENT** MISC XX SCH (20:42)
[2020-05-31] MEDS: hydrOXYzine 25 MG TAB PO PRN (23:27)
[2020-06-01] VITALS (7 sets, daily range): BP systolic 107–168; BP diastolic 64–94
[2020-06-01] MEDS: MEROPENEM INJ 500 MG in IV 1 EA IV SCH ×3 (03:40→20:42)
[2020-06-01 04:24] LABS: BASO % 0.1 % (0.0-1.0); EOS # 0.1 10^3/uL (0.0-0.5); HEMATOCRIT 34.2 % (42.0-52.0); HEMOGLOBIN 10.7 g/dl (13.5-17.5); LYMPH % 24.8 % (24.0-44.0); MEAN CORPUSCULAR HEMOGLOBIN 28.8 pg (27.0-33.0); MEAN CORPUSCULAR HGB CONC 31.3 g/dl (32.0-36.5); MEAN CORPUSCULAR VOLUME 91.9 fl (80.0-96.0); MONO # 1.1 10^3/uL (0.0-0.8); MONO % 13.9 % (0.0-5.0); NEUTROPHILS # 4.4 10^3/uL (1.5-8.5); NEUTROPHILS % 55.9 % (36.0-66.0); PLATELET COUNT, AUTOMATED 236 10^3/uL (150-450); RED BLOOD COUNT 3.72 10^6/uL (4.30-6.10); WHITE BLOOD COUNT 7.9 10^3/uL (4.0-10.0)
[2020-06-01 04:37] LABS: INR 1.53; PROTHROMBIN TIME 18.8 SECONDS (11.8-14.0)
[2020-06-01 04:51] LABS: ALBUMIN 2.4 GM/DL (3.2-5.2); ALT/SGPT 12 U/L (12-78); BILIRUBIN,TOTAL 0.3 MG/DL (0.2-1.0); BLOOD UREA NITROGEN 24 MG/DL (7-18); CALCIUM LEVEL 9.7 MG/DL (8.8-10.2); CARBON DIOXIDE LEVEL 30 MEQ/L (21-32); CHLORIDE LEVEL 105 MEQ/L (98-107); CREATININE FOR GFR 0.73 MG/DL (0.70-1.30); GLOMERULAR FILTRATION RATE > 60.0 (>42); GLUCOSE, FASTING 101 MG/DL (70-100); MAGNESIUM LEVEL 1.8 MG/DL (1.8-2.4); PHOSPHORUS LEVEL 2.8 MG/DL (2.5-4.9); POTASSIUM SERUM 3.4 MEQ/L (3.5-5.1); SODIUM LEVEL 140 MEQ/L (136-145); TOTAL PROTEIN 6.2 GM/DL (6.4-8.2)
[2020-06-01] MEDS: PERCOCET 5MG/325MG TAB PO SCH ×4 (05:53→23:51)
[2020-06-01] MEDS: SODIUM CHLORIDE 0.9% INJ 10 ML SYR IV SCH ×2 (05:54→18:08)
[2020-06-01] MEDS: aMILoride 5 MG TAB PO SCH (09:04)
[2020-06-01] MEDS: ASPIRIN 81 MG ENTERIC TAB PO SCH (09:04)
[2020-06-01] MEDS: GABAPENTIN 300 MG CAP PO SCH ×3 (09:04→20:43)
[2020-06-01] MEDS: VITAMIN B COMPLEX/VIT C CAP PO SCH (09:04)
[2020-06-01] MEDS: MIRALAX *UNIT DOSE* 17GM PACKET PO SCH ×2 (09:04→20:42)
[2020-06-01] MEDS: predniSONE 5 MG TAB PO SCH (09:04)
[2020-06-01] MEDS: DULoxetine 30 MG CAP (CYMBALTA) PO SCH (09:04)
[2020-06-01] MEDS: K-PHOS NEUTRAL 250MG TABLET (SOD.PHOSPHATE/POT.PHOSPHATE) PO SCH ×2 (09:05→20:43)
[2020-06-01] MEDS: TORSEMIDE 20 MG TAB PO SCH (09:05)
[2020-06-01] MEDS: DIGOXIN 0.125 MG TAB PO SCH (09:05)
[2020-06-01] MEDS: METOPROLOL TART 12.5 MG PER 1/2 TAB PO SCH ×2 (09:06→20:46)
[2020-06-01] MEDS: azaTHIOprine 50 MG TAB (J7500) PO SCH (09:06)
[2020-06-01] MEDS: MAGNESIUM GLUCONATE 500 MG TAB PO SCH ×2 (09:06→20:43)
[2020-06-01] MEDS: RAPAMUNE 1 MG PO SCH (09:07)
--- NOTE | 2020-06-01 10:22 | IPNPDOC ---
Date Seen The patient was seen on 06/01/20. Progress Note SUBJECTIVE: patient seen and examined at bedside. Vital signs were stable. No acute events overnight. No fevers. Doing well. OBJECTIVE PHYSICAL EXAMINATION: VITAL SIGNS: Please see below. GENERAL: NAD HEENT: PERRLA CARDIOVASCULAR: RRR, normal S1, S2. RESPIRATORY: lungs CTAB. ABDOMINAL: soft, nontender EXTREMITIES: no edema, no joint deformity NEUROLOGICAL: no focal neuro deficit PSYCHOLOGICAL: calm, cooperative. IMAGING: CT abdo pelvis without contrast (05/27/20) IMPRESSION: 1. A small hiatal hernia is present. 2. There is a right renal transplant demonstrated. Nonobstructive calculi demonstrated within the transplanted kidney. 7 mm obstructive calculus demonstrated in the collecting system of the transplant at the UV junction, previously intrarenal in location. 3. There is increased feces throughout the colon consistent with constipation. 4. There is mild diffuse thickening of the wall of the bladder without significant perivesicular inflammatory changes. Findings may be related to incomplete distention or chronic bladder outlet obstruction however clinical correlation to exclude cystitis suggested. CT abdo pel w PO contrast only (05/31/20) 1. There is prominence of the left right proximal renal transplant ureter. The calcification that was seen at the UPJ is no longer present. I suspect this is migrated back into the renal pelvis. 2. Nonobstructing right intrarenal stone and suspected cyst. 3. Retained feces. 4. Left inguinal hernia. 5. Stable spine. 6. Postoperative nephrectomies with calcifications of the adrenal glands and calcifications peripherally rimmed involving the left perinephric space. Echocardiogram: last echo 05/2019, showing severe Aortic Sclerosis with moderately severe aortic stenosis. Severe mitral annular calcification. LVEF 65%. DVT prophylaxis ordered?: SCD, LAVERN ASSESSMENT AND PLAN: 75 yo M with a hx of IgA nephropathy (s/p R renal transplant in 2006), afib on AC (coumadin), CAD (s/p stent 02/2020), HTN, chronic anemia, neuropathy presenting to [facility] with fevers, chills, lower abdominal pain, dysuria and frequency. Febrile on arrival (Tmax 100.8). HR > 90. WBC 15.2. Admitted for SIRS from UTI as source. Meropenem for empiric antimicrobial treatment given allergies. Blood cultures positive for Enterobacter Cloacae, sensitive to meropenem. PROBLEMS: 1.SIRS: UTI as source. WBC trending down (15.2 -> 13.5). VSS. Meropenem. IVF. BCX positive for Enterobacter Cloacae. Discussed with Dr. Alcantar, patient has failed PO therapy several times due to resistance or has been unable to comply given allergies. Will require an additional 3 days of meropenem. Plan for transfer to [facility] for specialist 2. Supratherapeutic INR: INR 1.19. No bleeding. Resume warfarin at reduced dose 2 mg. Check INR in am. 3. Afib: on digoxin. Digoxin level 1.0. Had episodes of RVR, 4 runs of non sustained vtach. Start metoprolol 12.5 mg BID. AC on coumadin, resumed. 4. Acute on chronic anemia: Transfused 1 unit. Repeat HH 10.5. 5. IgA Nephropathy: s/p R renal transplant 2006. Prev ESRD, L AV fistula inactive. C/w azathioprine, sirolimus, calcitriol, torsemide. Nephrology following. 6. R renal calculus: obstructing 7 mm stone at UV junction of transplant has migrated back into renal pelvis. Cr has been normal. Discussed with Dr. Pool. CT scan does not show hydronephrosis. 7. Hypomagnesemia: magnesium PO. Amiloride 5 mg PO daily. 8. CAD: s/p stent 03/19/20. Not on plavix, perhaps due to risk of bleeding. ASA for now. 9. HTN: home med amiloride, torsemide. Added metoprolol. 10. Aortic Stenosis: Last echo 05/2019. Repeat annually for surveillance. Ensure cardiology follow up. 11. Neuropathy: home med. Gabapentin 600 mg TID. 12. Nausea: zofran prn. 13. Constipation: stool seen on CT. senna. Milk of magnesia. Dispo: working with PT to clear stairs, likely return to prior level of function. DVT PPX: SCDs, TEDs. Resumed warfarin. Cultures: Urine (CC) 05/27/20 - positive for Enterobacter Cloacae (sens to meropenem) Blood (venous) 05/27/20 x 2 - negative final Abx: Meropenem: 05/28/20 - until 06/03/20. VS, I&O, 24H, Fishbone Vital Signs/I&O Vital Signs Date Time Temp Pulse Resp B/P (MAP) Pulse Ox O2 Delivery O2 Flow Rate FiO2 06/01/20 09:06 64 124/64 06/01/20 06:49 98.6 16 96 Room Air I&O- Last 24 Hours up to 6 AM0 06/01/20 06:00 Intake Total 1285 ml Output Total 1900 ml Balance -615 ml Laboratory Data 24H LABS Laboratory Tests 2 06/01/20 04:06: Immature Granulocyte % (Auto) 4.3H, Neutrophils (%) (Auto) 55.9, Lymphocytes (%) (Auto) 24.8, Monocytes (%) (Auto) 13.9H, Eosinophils (%) (Auto) 1.0, Basophils (%) (Auto) 0.1, Neutrophils # (Auto) 4.4, Lymphocytes # (Auto) 2.0, Monocytes # (Auto) 1.1H, Eosinophils # (Auto) 0.1, Basophils # (Auto) 0.0, Nucleated Red Blood Cells % (auto) 0.0, Prothrombin Time 18.8H, Prothromb Time International Ratio 1.53, Anion Gap 5L, Glomerular Filtration Rate > 60.0, Calcium Level 9.7, Phosphorus Level 2.8, Magnesium Level 1.8, Total Bilirubin 0.3, Aspartate Amino Transf (AST/SGOT) 16, Alanine Aminotransferase (ALT/SGPT) 12, Alkaline Phosphatase 74, Total Protein 6.2L, Albumin 2.4L, Albumin/Globulin Ratio 0.6 CBC/BMP Laboratory Tests 06/01/20 04:06 Microbiology Microbiology 05/27/20 Blood Culture - Preliminary, Resulted No Growth after 72 hours. All specime... 05/27/20 Urine Culture - Final, Complete Enterobacter Cloacae Complex 05/27/20 Blood Culture - Preliminary, Resulted No Growth after 72 hours. All specime... LUDA GAY MD Jun 01, 2020 10:22
[2020-06-01] MEDS ORDERED: POTASSIUM CHLORIDE 10 MEQ SR TABLET PO ONE (11:00)
[2020-06-01] MEDS: SODIUM CHLORIDE 0.9% INJ 10 ML SYR IV PRN (13:34)
--- NOTE | 2020-06-01 15:47 | IPN ---
DATE: 05/30/2020 SUBJECTIVE: Patient was seen and examined at the bedside today morning. He is afebrile, hemodynamically stable. He reports the pain at the transplant site is better. Renal function is stable. He continues to be on I.V. antibiotics. OBJECTIVE: Vital Signs: Temperature 98.3 degrees Fahrenheit, blood pressure 123/73, pulse 85, respiratory rate 17, saturating 97% on room air. Intake and output: Urine output recorded at 1.1 liters so far today since overnight. Weight in the bed scale is 71.4 kg. PHYSICAL EXAMINATION: GENERAL: Patient is awake and alert, oriented x3, sitting up in the bed, in no apparent distress. HEAD AND NECK: Extraocular muscles intact. Pupils equally round and reactive to light. Mucous membranes are moist. Neck is supple. He has an old surgical scar on the neck. CARDIOVASCULAR: S1, S2, regular rate. 2+ edema of the bilateral lower extremities. RESPIRATORY: Chest is clear to auscultation bilaterally. Bilateral equal air entry. No rales or rhonchi. ABDOMEN: Soft. Positive bowel sounds. Nontender. No organomegaly. Right lower quadrant renal allograft was noted with no tenderness. MUSCULOSKELETAL: No clubbing or cyanosis. Pulses are 2+. HOSTESS CASHIER: No focal deficit. Power is 5/5 in all extremities. LABORATORY REVIEW: CBC showed WBC 9.4, hemoglobin 11.4, platelets 213,000. BMP showed sodium 135, potassium 3.6, chloride 101, bicarb 28, BUN 17, creatinine 0.76, calcium 9.6. Magnesium 30. Phosphorus 1.6. Albumin 3. CURRENT INPATIENT MEDICATIONS: Patient's medications were all reviewed by myself. He continues to be on I.V. Meropenem. No significant change in the medications today as compared with yesterday. ASSESSMENT AND PLAN: 1. Acute pyelonephritis of the renal allograft: Continue current dose of I.V. Meropenem daily for Complicated urinary tract infection: He should get at least seven days of I.V. antibiotics. 2. Stone in the transplanted ureter: Patients renal function is very stable and he is tolerating I.V. antibiotics. Pain is improved. No intervention needed at this time. 3. Renal allograft status: Continue current dose of Sirolimus, prednisone and Azathioprine. 4. Atrial fibrillation: His heart rate is controlled with Digoxin. Coumadin is being adjusted by the medical team. 5. Anemia after hemorrhage from the groin: He was given blood transfusion. Hemoglobin level has improved within the normal range. DISPOSITION: Patient is not stable to be discharged home. He is allergic to most of the available oral antibiotics. He will need to stay in the hospital for at least a total of one week to finish his I.V. antibiotics. [id number]
[2020-06-01] MEDS: WARFARIN SOD 2MG TAB PO SCH (16:30)
[2020-06-01] MEDS: CYCLOBENZAPRINE 10MG TABLET PO PRN (16:32)
[2020-06-01] MEDS ORDERED: MERO500V2 IV (20:08)
[2020-06-01] MEDS ORDERED: METO1TAB87 PO (20:08)
[2020-06-01] MEDS ORDERED: SENN18TA PO (20:08)
--- NOTE | 2020-06-01 20:27 | DS.PDOC ---
Discharge Summary General Date of Admission May 27, 2020 at 19:25 Date of Discharge 06/02/2020 Attending Physician: LUDA GAY MD Specialist/Consultants Involve: PATRIA KHAN MD Discharge Summary PROCEDURES PERFORMED DURING STAY: [None]. ADMITTING DIAGNOSES: 1. SIRS 2. UTI 3. Supratherapeutic INR 4. Afib 5. Chronic RAYRAY 6. IgA nephropathy 7. Renal transplant 8. Chronic CAD 9. HTN 10. Mod/Severe Aortic Stenosis 11. Nausea 12. Constipation DISCHARGE DIAGNOSES: 1. SIRS 2. UTI 3. Obstructing Renal Stone - in transplanted kidney 4. Supratherapeutic INR 5. Afib 6. Acute anemia 7 Iron deficiency anemia 8. IgA nephropathy 9. Renal transplant 10. Chronic CAD 11. HTN 12. Mod/Severe Aortic Stenosis 13. Nausea 14. Constipation COMPLICATIONS/CHIEF COMPLAINT: Sepsis, Complicated Uti. HISTORY OF PRESENT ILLNESS: This 75 yr old M has a hx of UTIs and came to the hospital because he had a feeling I was getting an infection. The symptoms started last night with chills & urinary urgency; he had sharp constant 10/10 in severity lower abdominal pain that was so severe that he had difficulties standing up. He had nausea but denied having fevers or diarrhea and added that he feels constipated. He was admitted with SIRS 2/2 UTI. 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 He developed recurrent UTIs, the nephrostomy tube was removed. Given multiple drug allergies, and multidrug resistant infections, he has suffered numerous bouts of pyelonephritis. Given poor IV access and hypotension, femoral central line was placed. He had supratherapeutic INR (5.0). Takes warfain 3 mg qhs. HOSPITAL COURSE: Patient was admitted with SIRS 2/2 recurrent pyelonephritis of the renal allograft. His urine culture was positive for Enterobacter Cloacae, sensitive to meropenem (he was responsive to Meropenem in the past). CT abdomen showed a 7 mm obstructing stone at the UV junction if transplanted kidney, without hydronephrosis. Cr remained stable throughout the admission. Repeat CT abdo showed absence of obstructing stone, thought to have migrated back into renal pelvis. Given recurrent bout of pyelonephritis in the transplanted kidney, attempt to transfer to [facility] where a transplant service is available was made, in hopes of removal of stone with specialist assistance. Of note, supratherapeutic INR on arrival was treated with vit K, warfarin was held. Femoral CVC was removed, but bled moderately. Hg < 7.3. Transfused 1 unit pRBC, Hgb raven to 10.5. Warfarin was resume at a reduced dose - 2 mg qhs. INR subtherapeutic on 06/01/20 - dose increased to 3 mg once more. Other issues were addressed as follows: 1.SIRS: UTI as source. WBC trending down (15.2 -> 13.5). VSS. Meropenem. IVF. BCX positive for Enterobacter Cloacae. Discussed with Dr. Alcantar, patient has failed PO therapy several times due to resistance or has been unable to comply given allergies. Will require an additional 3 days of meropenem. Plan for transfer to [facility] for specialist 2. Supratherapeutic INR: Warfarin 3 mg (increased from 2 mg on 06/01/20). Check INR. 3. Afib: on digoxin. Digoxin level 1.0. Had episodes of RVR, 4 runs of non sustained vtach. Start metoprolol 12.5 mg BID. AC on coumadin, resumed. 4. Acute on chronic anemia: Transfused 1 unit. Repeat HH 10.5. 5. IgA Nephropathy: s/p R renal transplant 2006. Prev ESRD, L AV fistula inactive. C/w azathioprine, sirolimus, calcitriol, torsemide. Nephrology following. 6. R renal calculus: obstructing 7 mm stone at UV junction of transplant has migrated back into renal pelvis. Cr has been normal. Discussed with Dr. Pool. CT scan does not show hydronephrosis. 7. Hypomagnesemia: magnesium PO. Amiloride 5 mg PO daily. 8. CAD: s/p stent 03/19/20. Not on plavix, perhaps due to risk of bleeding. ASA for now. 9. HTN: home med amiloride, torsemide. Added metoprolol. 10. Aortic Stenosis: Last echo 05/2019. Repeat annually for surveillance. Ensure cardiology follow up. 11. Neuropathy: home med. Gabapentin 600 mg TID. 12. Nausea: zofran prn. 13. Constipation: stool seen on CT. senna. Milk of magnesia. Dispo: working with PT to clear stairs, likely return to prior level of function. DVT PPX: SCDs, TEDs. Resumed warfarin. Cultures: Urine (CC) 05/27/20 - positive for Enterobacter Cloacae (sens to meropenem) Blood (venous) 05/27/20 x 2 - negative final Abx: Meropenem: 05/28/20 - until 06/03/20. DISCHARGE MEDICATIONS: Please see below. ALLERGIES: Please see below. PHYSICAL EXAMINATION ON DISCHARGE: VITAL SIGNS: Please see below. GENERAL: NAD HEENT: PERRLA CARDIOVASCULAR: RRR, normal S1, S2. RESPIRATORY: lungs CTAB. ABDOMINAL: soft, nontender EXTREMITIES: no edema, no joint deformity NEUROLOGICAL: no focal neuro deficit PSYCHOLOGICAL: calm, cooperative. LABORATORY DATA: Please see below. IMAGING: CT abdo pelvis without contrast (05/27/20) IMPRESSION: 1. A small hiatal hernia is present. 2. There is a right renal transplant demonstrated. Nonobstructive calculi demonstrated within the transplanted kidney. 7 mm obstructive calculus demonstrated in the collecting system of the transplant at the UV junction, previously intrarenal in location. 3. There is increased feces throughout the colon consistent with constipation. 4. There is mild diffuse thickening of the wall of the bladder without significant perivesicular inflammatory changes. Findings may be related to incomplete distention or chronic bladder outlet obstruction however clinical correlation to exclude cystitis suggested. CT abdo pel w PO contrast only (05/31/20) 1. There is prominence of the left right proximal renal transplant ureter. The calcification that was seen at the UPJ is no longer present. I suspect this is migrated back into the renal pelvis. 2. Nonobstructing right intrarenal stone and suspected cyst. 3. Retained feces. 4. Left inguinal hernia. 5. Stable spine. 6. Postoperative nephrectomies with calcifications of the adrenal glands and calcifications peripherally rimmed involving the left perinephric space. Echocardiogram: last echo 05/2019, showing severe Aortic Sclerosis with moderately severe aortic stenosis. Severe mitral annular calcification. LVEF 65 %. PROGNOSIS: fair ACTIVITY: [As tolerated]. DIET: 2g Na DISCHARGE PLAN: Transfer to [facility] for specialist intervention. DISCHARGE INSTRUCTIONS: 1. complete 3 additional days of meropenem 2. Nephrology follow up ITEMS TO FOLLOWUP ON ON OUTPATIENT: 1. Monitor INR DISCHARGE CONDITION: [Stable]. TIME SPENT ON DISCHARGE: Greater than [30] minutes. Vital Signs/I&Os Vital Signs Date Time Temp Pulse Resp B/P (MAP) Pulse Ox O2 Delivery O2 Flow Rate FiO2 06/01/20 18:46 18 06/01/20 16:00 96.8 72 168/94 (118) 90 Room Air I&O- Last 24 Hours up to 6 AM 06/01/20 06:00 Intake Total 1285 ml Output Total 1900 ml Balance -615 ml Laboratory Data Labs 24H Laboratory Tests 2 06/01/20 04:06: Immature Granulocyte % (Auto) 4.3H, Neutrophils (%) (Auto) 55.9, Lymphocytes (%) (Auto) 24.8, Monocytes (%) (Auto) 13.9H, Eosinophils (%) (Auto) 1.0, Basophils (%) (Auto) 0.1, Neutrophils # (Auto) 4.4, Lymphocytes # (Auto) 2.0, Monocytes # (Auto) 1.1H, Eosinophils # (Auto) 0.1, Basophils # (Auto) 0.0, Nucleated Red Blood Cells % (auto) 0.0, Prothrombin Time 18.8H, Prothromb Time International Ratio 1.53, Anion Gap 5L, Glomerular Filtration Rate > 60.0, Calcium Level 9.7, Phosphorus Level 2.8, Magnesium Level 1.8, Total Bilirubin 0.3, Aspartate Amino Transf (AST/SGOT) 16, Alanine Aminotransferase (ALT/SGPT) 12, Alkaline Phosphatase 74, Total Protein 6.2L, Albumin 2.4L, Albumin/Globulin Ratio 0.6 CBC/BMP Laboratory Tests 06/01/20 04:06 Microbiology Microbiology 05/27/20 Blood Culture - Final, Complete NO GROWTH AFTER 5 DAYS 05/27/20 Urine Culture - Final, Complete Enterobacter Cloacae Complex 05/27/20 Blood Culture - Final, Complete NO GROWTH AFTER 5 DAYS Discharge Medications Scheduled Amiloride HCl (Amiloride HCl) 5 Mg Tablet, 5 MG PO DAILY, (Reported) Aspirin (Aspir 81) 81 Mg Tab, 81 MG PO DAILY, (Reported) Azathioprine (Azathioprine) 50 Mg Tablet, 100 MG PO DAILY, (Reported) Calcitriol (Calcitriol) 0.25 Mcg Cap, 0.25 MCG PO 5XW, (Reported) MON-FRI Digoxin (Digoxin) 125 Mcg Tablet, 125 MCG PO DAILY, (Reported) Duloxetine Hcl (Cymbalta) 30 Mg Capsule.dr, 30 MG PO DAILY, (Reported) Gabapentin (Gabapentin) 300 Mg Capsule, 600 MG PO TID, (Reported) Magnesium Gluconate (Magnesium Gluconate) 27 Mg Tablet, 6 TABS PO BID, (Reported) Melatonin (Melatonin) 10 Mg Capsule, 10 MG PO QHS, (Reported) Meropenem (Meropenem) 500 Mg Vial, 500 MG IV Q8H Metoprolol Tartrate (Metoprolol Tartrate) 25 Mg Tablet, 12.5 MG PO BID Oxycodone HCl/Acetaminophen (Oxycodone-Acetaminophen 5-325) 1 Each Tablet, 1 TAB PO Q6H, (Reported) Prednisone (Prednisone) 5 Mg Tab, 5 MG PO DAILY, (Reported) Sirolimus (Rapamune) 1 Mg Tablet, 2 MG PO DAILY, (Reported) Sod Phos Di, [place]/K Phos Gunnison (Virt-Phos 250 Neutral Tablet) 1 Tab Tab, 2 TAB PO BID, (Reported) Torsemide (Torsemide) 20 Mg Tablet, 20 MG PO DAILY, (Reported) Vitamin B Complex Vit C No.3 (B Complex with Vitamin C) 1 Cap Cap, 1 CAP PO DAILY, (Reported) Warfarin Sodium (Warfarin Sodium) 3 Mg Tablet, 3 MG PO QPM, (Reported) Scheduled PRN Acetaminophen (Acetaminophen) 325 Mg Tablet, 650 MG PO Q4H PRN for PAIN, (Reported) Cyclobenzaprine HCl (Cyclobenzaprine HCl) 10 Mg Tablet, 10 MG PO BID PRN for MUSCLE SPASMS, (Reported) Diazepam (Diazepam) 2 Mg Tablet, 2 MG PO TID PRN for ANXIETY, (Reported) Hydroxyzine HCl (Hydroxyzine HCl) 25 Mg Tablet, 50 MG PO QHS PRN for INSOMNIA, (Reported) Lidocaine (Lidoderm) 5% Adh..patch, 1 PATCH TOP DAILY PRN for PAIN, (Reported) APPLY TO BACK 12HR ON, 12HR OFF Methyl Salicylate/Menthol (Icy Hot Cream) 35.4 Gm Cream..g., 1 APLCT TOP DAILY PRN for BACK PAIN, (Reported) Ondansetron HCl (Zofran) 4 Mg Tablet, 4 MG PO TID PRN for NAUSEA OR VOMITING, (Reported) Polyethylene Glycol 3350 (Miralax) 119 Gm Powder, 17 GRAM PO QHS PRN for CONSTIPATION, (Reported) DISSOLVE IN WATER OR JUICE Senna (Senna Lax) 8.6 Mg Tablet, 2 TAB PO BIDP PRN for BOWEL CARE Allergies Coded Allergies: cefuroxime (Verified Adverse Reaction, Mild, ANXIETY, 12/20/18) codeine (Verified Adverse Reaction, Mild, AGITATION, 12/20/18) doxycycline (Verified Adverse Reaction, Mild, UPSET STOMACH, 01/14/20) lorazepam (Verified Adverse Reaction, Mild, AGITATION, 12/20/18) pregabalin (Verified Adverse Reaction, Mild, ANXIETY, DROWSINESS, 01/14/20) amoxicillin (Verified Adverse Reaction, Unknown, can take few prior to dentist but can not take for 10 days, 01/14/20) ciprofloxacin (Verified Adverse Reaction, Unknown, HEART RACES, 04/10/20) levofloxacin (Verified Adverse Reaction, Unknown, HEART RACES, 02/07/20) tizanidine (Verified Adverse Reaction, Unknown, 01/14/20) LUDA GAY MD Jun 01, 2020 20:27
[2020-06-01] MEDS: **NOTE PATIENT COMMENT** MISC XX SCH (20:47)
[2020-06-01] MEDS: MORPHINE 2 MG/ML 1ML VIAL (J2270) IV PRN (21:00)
[2020-06-02] VITALS: BP 128/73
[2020-06-02] MEDS: MORPHINE 2 MG/ML 1ML VIAL (J2270) IV PRN (02:44)
[2020-06-02 04:00] VITALS: BP 113/58
[2020-06-02] MEDS: MEROPENEM INJ 500 MG in IV 1 EA IV SCH (04:18)
[2020-06-02 06:30] VITALS: BP 125/79
[2020-06-02] MEDS: SODIUM CHLORIDE 0.9% INJ 10 ML SYR IV SCH (06:40)
[2020-06-02] MEDS: PERCOCET 5MG/325MG TAB PO SCH (06:41)
[2020-06-02] MEDS ORDERED: WARFARIN SOD 3MG TAB PO SCH (17:00)
--- NOTE | 2020-06-03 09:52 | IPN ---
DATE: 05/31/2020 Mr. Kwon was seen this morning at his bedside. He is feeling much better today, currently sitting at the edge of bed. He reports that his back pain and lower abdominal pain has improved. He is making good urine and denies any dysuria or increased frequency. He reports significant frequency while he was at home prior to admission. His symptoms have improved significantly. Denies any nausea or vomiting, and eating well. On physical examination, temperature 97.8 degrees Fahrenheit, heart is 78 per minute and respiratory rate 18 per minute. Blood pressure 149/82 mmHg and oxygen saturation 96% on room air. Head is atraumatic. Neck supple with without JVD or thyroid enlargement. Heart sounds are regular with systolic murmur, grade 2/6. Lungs clear to auscultation bilaterally. Abdomen is soft and nontender. Old surgical scars are all well healed. Neurologically, he is awake, alert and oriented times 3. On review of his labs, WBC count 7.1, hemoglobin 10.0 and hematocrit 31.2. Sodium 139, potassium 3.2, BUN 23 and creatinine 0.73. Calcium level 9.4. PROBLEMS: 1. Kidney transplant status. Kidney function remains stable and patient will remain on his chronic immunosuppressive medications. No changes are being made today. 2. Complicated urinary tract infection (UTI). The patient remains on intravenous meropenem. He has known history of recurrent Enterobacter UTI in his transplant kidney. He also had a 7 mm obstructive calculus in the collecting system of the transplant kidney. It remains to be seen if he has passed that stone. We will repeat his CAT scan. If he has not passed the stone, then I will be really hesitant to discharge him due to recurrent symptoms. He also has been treated multiple times with IV antibiotics for the same infection which keeps coming back. I feel that his infection is not clearing completely due to immunocompromised status and kidney stones. We will probably need to treat him for a longer duration. Unfortunately, there are not many antibiotics that he can take by mouth due to his allergies and with the transplant kidney. It remains to be seen how his repeat CAT scan comes back and then we will make a decision about further plans. VAIBHAV
--- NOTE | 2020-06-03 09:54 | IPN ---
DATE: 06/01/2020 CHIEF COMPLAINT: Mr. Kwon is seen this morning at his bedside. He reports frequency of urination yesterday afternoon but this morning he is feeling better. He had a CT scan of abdomen and pelvis repeated last evening which did show 7 mm stone in the pelvis of transplant kidney and another 4 mm stone in the kidney. There was no hydronephrosis. The patient denies any fever, chills, nausea or vomiting. He does have history of recurrent urinary tract infection with Enterobacter. He has been treated multiple times with intravenous antibiotics and nephrostomy tube was removed a few weeks ago. He still had recurrence of UTI probably related to kidney stones. PHYSICAL EXAM: Vital signs: Temperature 96.8 degrees Fahrenheit, heart is 72 per minute and respiratory rate 16 per minute, blood pressure 146/80 mmHg and oxygen saturation 94% on room air. HEENT: Head is atraumatic. Neck: Supple without JVD or thyroid enlargement. Heart: Sounds are regular with systolic murmur grade II/. Lungs: Clear to auscultation. Abdomen: Soft and nontender. Old surgical scars are all well healed. Extremities: Without any cyanosis or clubbing. Neurological: He is awake without focal deficits. Todays labs showed WBC 7.9, hemoglobin 10.7, hematocrit 34.2. Platelets 236. Sodium 140, potassium 3.4, CO2 30, BUN 24, creatinine 0.73. CT scan of abdomen and pelvis done last evening was consistent with prominence of left renal proximal ureter. There is 7 mm stone possibly in renal pelvis. There is another 4 mm stone in the kidney. He has left inguinal hernia and postoperative spine. PROBLEMS: 1. Recurrent complicated UTI with Enterobacter. The patient had originally a ureteral stone in August of 2019 and had nephrostomy tube placed due to hydronephrosis. His nephrostomy tube removal was delayed significantly due to COVID-19 and it was removed just a few weeks ago. Since August he has had multiple urinary tract infections with same bacteria and we have treated him several times with intravenous antibiotics. This is his at least third admission in last few months. Even after removal of nephrostomy tube he developed high grade fever with symptoms of UTI. I feel that this is related to kidney stone and possible obstruction. At present his symptoms have improved while he is on intravenous antibiotics. I feel that he needs to have urology or interventional radiology remove the stone from his transplant kidney. I have discussed with the Hospitalist Service and recommended transfer to [facility] as local urology service does not want to intervene with transplant kidney. 2. Kidney transplant status. Kidney function has been stable and remains on chronic immunosuppressive therapy. No changes have been made to date. 3. Hypokalemia. Potassium level is slightly improved. He remains on potassium supplement. 4. Chronic back pain with significant degenerative spine changes, status post reconstructive surgery. The patient remains on chronic pain medications and seems to be doing at about his baseline. MTDD
--- NOTE | 2020-06-05 12:09 | ECGEPIP ---
[facility] - ED Test Date: 2020-05-27 Pat Name: ELDA JACOBSEN Department: Room: - Gender: Male [place]: leonid : [id number] Requested By: KORI Biswas Order Number: [id number] Reading MD: Mine Hawley Measurements Intervals Horner Rate: 83 P: SC: 0 QRS: -53 QRSD: 93 T: 29 QT: 372 QTc: 438 Interpretive Statements ATRIAL FIBRILLATION MARKED LEFT AXIS DEVIATION ANTEROSEPTAL MYOCARDIAL INFARCTION, OF INDETERMINATE AGE ABNORMAL ECG SEE SCANNED DOWNTIME REPORT
--- NOTE | 2020-06-20 12:58 | REP ---
LUMBOSACRAL SPINE SERIES CLINICAL: Lower back pain. TECHNIQUE: AP, lateral, bilateral oblique, and cone down views of the lumbosacral spine. FINDINGS: Advanced osteopenia and advanced multilevel degenerative disc osteophyte complexes are appreciated. Patient is noted to be status post posterior fixation at T11-L2. Evaluation is severely limited due to osteopenia, advanced degenerative changes, and overlying bowel gas. IMPRESSION: Markedly limited examination as described above. If the patient remains symptomatic, CT or MRI should be considered for further investigation. CHARID
--- NOTE | 2020-06-20 13:00 | REP ---
NON-CONTRAST HEAD CT DATE: 05/27/2020 at 01:02 p.m. CLINICAL: Acute cerebrovascular accident. TECHNIQUE: Axial noncontrast images from the skull base to the vertex with coronal reformations. FINDINGS: Age-related osteopenia with periventricular leukomalacia and microvascular ischemic changes noted. No intracranial hemorrhage, edema, or mass effect. The ventricles are symmetric. No extra-axial fluid collection. Calvarium is intact. Paranasal sinuses and mastoid air cells are clear. IMPRESSION: Atrophy and microvascular ischemic changes. No intracranial hemorrhage or mass/mass effect. MTDD
--- NOTE | 2020-06-20 13:03 | REP ---
MIDLINE CATHETER LINE INSERTION WITH NAHED The procedure was performed under the direct supervision of Dr. Dunn. The risks and benefits of the procedure were explained to the patient and informed consent was obtained. The right brachial vein was localized using ultrasound guidance. The skin was prepped and draped in a sterile fashion. 1% Lidocaine was used as a local anesthetic. Using ultrasound guidance, the brachial vein was cannulated and a 0.018 guidewire was inserted. The needle was removed and a 5.5 German dilator and Peel-Away sheath was inserted over the guidewire. A 5.5 German dual-lumen catheter was left at a length of 16.5 cm. The dilator was removed and the catheter was inserted over the guidewire. The Peel-Away sheath was removed, and the catheter was flushed with heparinized saline as per hospital protocol. The catheter was affixed to the skin and a sterile dressing was applied. The patient tolerated the procedure well and there were no immediate complications. VAIBHAV
--- NOTE | 2020-06-24 14:46 | ECGEPIP ---
[facility] Test Date: 2020-05-31 Pat Name: ELDA JACOBSEN Department: Room: 3222 Gender: Male Consulting Analyst: RUBY : [id number] Requested By: TAM Order Number: [id number] Reading MD: Daniele Sierra Measurements Intervals Iselin Rate: 58 P: FL: 0 QRS: -55 QRSD: 100 T: -31 QT: 441 QTc: 434 Interpretive Statements ATRIAL FIBRILLATION WITH SLOW VENTRICULAR RESPONSE LEFT ANTERIOR FASCICULAR BLOCK LEFT VENTRICULAR HYPERTROPHY BY MARTHA R/O PRIOR ASMI/IWMI ST/T ABN'S CLINICAL CORRELATION REQUIRED SEE SCANNED DOWNTIME REPORT
== END 2020-06-02 07:20 | disposition short-term general hospital (02) | DRG 699 ==
LOC: M ED 11:47 → M ED INP 19:25 → ENRESERV 19:42 → M PCU 21:33
PROVIDERS: ADMIT Internal Medicine; ATTEND Family Medicine
PROC: 30233N1 Transfusion of Nonautologous Red Blood Cells into Peripheral Vein, Percutaneous Approach (ICD-10-PCS; principal; 2020-05-29)
PROC: 02HV33Z Insertion of Infusion Device into Superior Vena Cava, Percutaneous Approach (ICD-10-PCS; 2020-05-30)
DX: T86.13 Kidney transplant infection (principal); N20.2 Calculus of kidney with calculus of ureter; N25.81 Secondary hyperparathyroidism of renal origin; N39.0 Urinary tract infection, site not specified; Z94.0 Kidney transplant status; I10 Essential (primary) hypertension; I48.91 Unspecified atrial fibrillation; K59.00 Constipation, unspecified; D50.9 Iron deficiency anemia, unspecified; I25.10 Atherosclerotic heart disease of native coronary artery without angina pectoris; I35.0 Nonrheumatic aortic (valve) stenosis; E83.42 Hypomagnesemia; K40.90 Unilateral inguinal hernia, without obstruction or gangrene, not specified as recurrent; Z79.899 Other long term (current) drug therapy; Z79.82 Long term (current) use of aspirin; Z88.5 Allergy status to narcotic agent; Z88.8 Allergy status to other drugs, medicaments and biological substances; G62.9 Polyneuropathy, unspecified; E83.39 Other disorders of phosphorus metabolism; K44.9 Diaphragmatic hernia without obstruction or gangrene

== ENCOUNTER 2020-06-18 11:01 | Inpatient (IN) | payer MEDICARE ==
[~2020-06-18] VITALS: Ht 172.7 cm; Wt 96.1 kg
[~2020-06-18 11:01] MED LIST changes: +MERO500V2 IV; +METO1TAB87 PO; +SENN18TA PO
[2020-06-18 12:05] LABS: BASO % 0.1 % (0.0-1.0); HEMATOCRIT 37.5 % (42.0-52.0); HEMOGLOBIN 11.7 g/dl (13.5-17.5); LYMPH # 1.8 10^3/uL (1.5-5.0); MEAN CORPUSCULAR HEMOGLOBIN 28.8 pg (27.0-33.0); MEAN CORPUSCULAR HGB CONC 31.2 g/dl (32.0-36.5); MEAN CORPUSCULAR VOLUME 92.4 fl (80.0-96.0); MONO # 0.7 10^3/uL (0.0-0.8); MONO % 9.3 % (0.0-5.0); NEUTROPHILS # 4.9 10^3/uL (1.5-8.5); NEUTROPHILS % 66.1 % (36.0-66.0); PLATELET COUNT, AUTOMATED 224 10^3/uL (150-450); RED BLOOD COUNT 4.06 10^6/uL (4.30-6.10); WHITE BLOOD COUNT 7.5 10^3/uL (4.0-10.0)
[2020-06-18 12:16] LABS: INR 3.57; PROTHROMBIN TIME 36.5 SECONDS (12.5-14.3)
[2020-06-18 12:34] LABS: BLOOD UREA NITROGEN 12 MG/DL (7-18); CALCIUM LEVEL 10.3 MG/DL (8.8-10.2); CARBON DIOXIDE LEVEL 31 MEQ/L (21-32); CHLORIDE LEVEL 103 MEQ/L (98-107); GLOMERULAR FILTRATION RATE > 60.0 (>42); GLUCOSE, FASTING 122 MG/DL (70-100); SODIUM LEVEL 139 MEQ/L (136-145)
[2020-06-18] MEDS ORDERED: ERTAPENEM SODIUM 1 GM in NS MINI-BAG PLUS 50 ML IV ONE (13:00)
[2020-06-18] MEDS ORDERED: AMLO2.5T3 PO (13:56)
[2020-06-18] MEDS ORDERED: DOCU100C17 PO (13:56)
[2020-06-18] MEDS ORDERED: RA S8.6T3 PO (13:56)
[2020-06-18] MEDS ORDERED: MIRALAX *UNIT DOSE* 17GM PACKET PO ONE (14:45)
[2020-06-18] MEDS ORDERED: CYCLOBENZAPRINE 10MG TABLET PO PRN (14:45)
[2020-06-18] MEDS ORDERED: BISACODYL 10 MG SUPP PR ONE (14:45)
[2020-06-18 15:00] VITALS: BP 132/90
[2020-06-18] MEDS: GABAPENTIN 300 MG CAP PO SCH ×2 (16:08→20:16)
[2020-06-18] MEDS: CALCITRIOL 0.25 MCG CAP (S0169) PO SCH (17:01)
[2020-06-18] MEDS: PERCOCET 5MG/325MG TAB PO SCH ×2 (17:02→23:09)
[2020-06-18] MEDS ORDERED: WARFARIN SOD 2MG TAB PO SCH (18:15)
[2020-06-18] MEDS: K-PHOS NEUTRAL 250MG TABLET (SOD.PHOSPHATE/POT.PHOSPHATE) PO SCH (20:16)
[2020-06-18] MEDS: MIRALAX *UNIT DOSE* 17GM PACKET PO SCH (20:16)
[2020-06-18] MEDS: SENOKOT S TAB PO SCH (20:17)
[2020-06-18] MEDS: MAGNESIUM GLUCONATE 500 MG TAB PO SCH (20:17)
[2020-06-18] MEDS: BISACODYL 10 MG SUPP PR SCH (20:17)
[2020-06-18 22:00] VITALS: BP 126/70
--- NOTE | 2020-06-18 22:30 | HPEPDOC ---
General Date of Admission Jun 18, 2020 at 13:36 Date of Service: Jun 18, 2020 Chief Complaint The patient is a 75-year-old male admitted with a reason for visit of Complicated Uti. Source: Patient History of Present Illness 75 year old male with h/o IgA nephropathy , ESRD since 1999 s/p renal Tx in 2006 now with renal stones in the transplanted kidney since 2018 with obstruction in the transplanted kidney in aug 2019 requiring nephrostomy tube, recurrent UTIs and obstruction presented to ED with 1 day h/o dysuria, right lower quadrant pain. No hematuria, no fever. He was recently admitted here on 05/27/20 SIRS 2/2 recurrent pyelonephritis of the renal allograft. His urine culture was positive for Enterobacter Cloacae, sensitive to meropenem (he was responsive to Meropenem in the past). CT abdomen showed a 7 mm obstructing stone at the UV junction of the transplanted kidney, without hydronephrosis. Cr remained stable throughout the admission. Repeat CT abdo showed absence of obstructing stone, thought to have migrated back into renal pelvis. Given recurrent bout of pyelonephritis in the transplanted kidney he was transferred to [facility] for transplant service. He was discharged from there on 06/06/20 after finishing the course of antibiotics and has an appointment with Dr Young on 06/25/20. UA in the ED now shows again TNTC WBCs, LE positive. He has allergies to multiple oral antibiotics. Based on his last urine culture which grew E faecalis needing meropenum he was admitted for treatment with IV antibiotics for Complicated UTI in transplanted kidney. Home Medications Scheduled Amiloride HCl (Amiloride HCl) 5 Mg Tablet, 5 MG PO DAILY, (Reported) Amlodipine Besylate (Amlodipine Besylate) 2.5 Mg Tablet, 2.5 MG PO DAILY, (Reported) Aspirin (Aspir 81) 81 Mg Tab, 81 MG PO DAILY, (Reported) Azathioprine (Azathioprine) 50 Mg Tablet, 100 MG PO DAILY, (Reported) Calcitriol (Calcitriol) 0.25 Mcg Cap, 0.25 MCG PO 5XW, (Reported) MON-FRI Digoxin (Digoxin) 125 Mcg Tablet, 125 MCG PO DAILY, (Reported) Duloxetine Hcl (Cymbalta) 30 Mg Capsule.dr, 30 MG PO DAILY, (Reported) Gabapentin (Gabapentin) 300 Mg Capsule, 600 MG PO TID, (Reported) Magnesium Gluconate (Magnesium Gluconate) 27 Mg Tablet, 6 TABS PO BID, (Reported) Melatonin (Melatonin) 10 Mg Capsule, 10 MG PO QHS, (Reported) Oxycodone HCl/Acetaminophen (Oxycodone-Acetaminophen 5-325) 1 Each Tablet, 1 TAB PO Q6H, (Reported) Prednisone (Prednisone) 5 Mg Tab, 5 MG PO DAILY, (Reported) Sirolimus (Rapamune) 1 Mg Tablet, 2 MG PO DAILY, (Reported) Sod Phos Di, [place]/K Phos [place] (Virt-Phos 250 Neutral Tablet) 1 Tab Tab, 2 TAB PO BID, (Reported) Torsemide (Torsemide) 20 Mg Tablet, 20 MG PO DAILY, (Reported) Vitamin B Complex Vit C No.3 (B Complex with Vitamin C) 1 Cap Cap, 1 CAP PO DAILY, (Reported) Warfarin Sodium (Warfarin Sodium) 3 Mg Tablet, 3 MG PO QPM, (Reported) Scheduled PRN Acetaminophen (Acetaminophen) 325 Mg Tablet, 650 MG PO Q4H PRN for PAIN, (Reported) Cyclobenzaprine HCl (Cyclobenzaprine HCl) 10 Mg Tablet, 10 MG PO BID PRN for MUSCLE SPASMS, (Reported) Diazepam (Diazepam) 2 Mg Tablet, 2 MG PO TID PRN for ANXIETY, (Reported) Docusate Sodium (Docusate Sodium) 100 Mg Capsule, 100 MG PO DAILY PRN for CONSTIPATION, (Reported) Hydroxyzine HCl (Hydroxyzine HCl) 25 Mg Tablet, 50 MG PO QHS PRN for INSOMNIA, (Reported) Lidocaine (Lidoderm) 5% Adh..patch, 1 PATCH TOP DAILY PRN for PAIN, (Reported) APPLY TO BACK 12HR ON, 12HR OFF Methyl Salicylate/Menthol (Icy Hot Cream) 35.4 Gm Cream..g., 1 APLCT TOP DAILY PRN for BACK PAIN, (Reported) Ondansetron HCl (Zofran) 4 Mg Tablet, 4 MG PO TID PRN for NAUSEA OR VOMITING, (Reported) Polyethylene Glycol 3350 (Miralax) 119 Gm Powder, 17 GRAM PO QHS PRN for CONSTIPATION, (Reported) DISSOLVE IN WATER OR JUICE Sennosides (Senna Lax) 8.6 Mg Tablet, 8.6 MG PO BID PRN for CONSTIPATION, (Reported) Allergies Coded Allergies: cefuroxime (Verified Adverse Reaction, Mild, ANXIETY, 12/20/18) codeine (Verified Adverse Reaction, Mild, AGITATION, 12/20/18) doxycycline (Verified Adverse Reaction, Mild, UPSET STOMACH, 01/14/20) lorazepam (Verified Adverse Reaction, Mild, AGITATION, 12/20/18) pregabalin (Verified Adverse Reaction, Mild, ANXIETY, DROWSINESS, 01/14/20) amoxicillin (Verified Adverse Reaction, Unknown, can take few prior to dentist but can not take for 10 days, 01/14/20) ciprofloxacin (Verified Adverse Reaction, Unknown, HEART RACES, 04/10/20) levofloxacin (Verified Adverse Reaction, Unknown, HEART RACES, 02/07/20) tizanidine (Verified Adverse Reaction, Unknown, 01/14/20) Past Medical History Medical History IgA Nephropathy (s/p Renal transplant 2006, s/p ESRD w HD / left AV fistula is inactive) Renal stones in transplanted kidney seen 3 months after transplant Ureteric stone in aug 2019 causing obs of transplanted kidney requiring Perc nephrostomy tube into the transplanted kidney, removed in March 2020. Recurrent UTIs from 2019 ESRD since 1999 s/p renal transplant in 2006 CAD s/p stents x 6 last in (03/19/2020) Mod/Severe Aortic stenosis Atrial fibrillation (on Coumadin) Chronic HTN Neuropathy Iron deficiency anemia Hypomagnesemia hypophosphatemia secondary hyperparathyroidism. Osteoporosis GERD Hernia surgeries Multiple spinal surgeries Neck surgeries with collar status post thoracolumbar fusion, bilateral nephrectomies, ventral hernia repair Epigastric hernia transmitting small bowel and Left inguinal hernia transmitting large bowel. Family History Significant Family History: Heart disease (father) Social History * Smoker: former Smoker Alcohol: Denies Drugs: denies A-FIB/CHADSVASC A-FIB History Current/History of A-Fib/PAF?: Yes Current PO Anticoag Therapy: Yes Review of Systems Constitutional: Denies: Chills, Fever, Night Sweats Eyes: Denies: Pain, Vision change ENT: Denies: Head Aches, Ear Pain, Dysphagia Skin: Reports: Other (hernia); Denies: Rash, Lesions, Breakdown Pulmonary: Denies: Dyspnea, Cough Cardiovascular: Denies: Chest Pain, Palpitations, Orthopnea, Paroxysmal Noc. Dyspnea, Lt Headedness Gastrointestinal: Reports: Abdominal Pain (right lower quadrant); Denies: Nausea, Vomiting, Diarrhea Genitourinary: Denies: Dysuria, Frequency, Incontinence, Retention Hematologic: Denies: Bruising, Bleeding Excessively Musculoskeletal: Reports: Neck Pain, Back Pain Physical Examination General Exam: Positive: Alert, Cooperative, No Acute Distress Eye Exam: Positive: PERRLA, Conjunctiva & lids normal, EOMI; Negative: Sclera icteric ENT Exam: Positive: Atraumatic, Mucous membr. moist/pink, Pharynx Normal Neck Exam: Positive: Supple; Negative: JVD, thyromegaly Chest Exam: Positive: Clear to auscultation, Normal air movement Heart Exam: Positive: Rate Normal, Regular Rhythm, Normal S1, Normal S2; Negative: Murmurs, Rubs Abdomen Exam: Positive: Normal bowel sounds, Soft, Tenderness (right illiac fossa); Negative: Hepatospenomegaly Extremity Exam: Negative: Clubbing, Cyanosis, Edema Neuro Exam: Positive: Normal Speech, Strength at 5/5 X4 ext, Normal Tone Vital Signs Vital Signs Date Time Temp Pulse Resp B/P (MAP) Pulse Ox O2 Delivery O2 Flow Rate FiO2 06/18/20 17:02 18 06/18/20 15:00 98.5 87 132/90 (104) 19 Room Air Laboratory Data Labs 24H Laboratory Tests 2 06/18/20 11:28: Urine Color SANDEEP, Urine Appearance CLOUDYH, Urine pH 6.0, Urine Specific [place] 1.010, Urine Protein NEGATIVE, Urine Glucose (UA) NEGATIVE, Urine Ketones NEGATIVE, Urine Blood 1+H, Urine Nitrite NEGATIVE, Urine Bilirubin NEGATIVE, Urine Urobilinogen 0.2, Urine Leukocyte Esterase 3+H, Urine WBC (Auto) TNTCH, Urine RBC (Auto) 23H, Urine Hyaline Casts (Auto) 0, Urine Bacteria (Auto) 1+H, Urine Squamous Epithelial Cells 0, Urine Sperm (Auto) 06/18/20 11:45: Immature Granulocyte % (Auto) 0.5, Neutrophils (%) (Auto) 66.1H, Lymphocytes (%) (Auto) 24.0, Monocytes (%) (Auto) 9.3H, Eosinophils (%) (Auto) 0.0, Basophils (%) (Auto) 0.1, Neutrophils # (Auto) 4.9, Lymphocytes # (Auto) 1.8, Monocytes # (Auto) 0.7, Eosinophils # (Auto) 0.0, Basophils # (Auto) 0.0, Nucleated Red Blood Cells % (auto) 0.0, Prothrombin Time 36.5H, Prothromb Time International Ratio 3.57, Anion Gap 5L, Glomerular Filtration Rate > 60.0, Calcium Level 10.3H CBC/BMP Laboratory Tests 06/18/20 11:45 Microbiology Microbiology 06/18/20 Blood Culture, Received Pending 06/18/20 Blood Culture, Received Pending 06/18/20 Urine Culture, Received Pending Assessment/Plan 75 year old male with h/o IgA nephropathy, ESRD since 1999 s/p renal Tx in 2006 now with renal stones in the transplanted kidney since 2018 with obstruction in the transplanted kidney in aug 2019 requiring nephrostomy tube, recurrent UTIs since aug 2019 presented to ED with 1 day h/o dysuria, right lower quadrant pain. No hematuria, no fever. The pain is dull aching type with no radiation about 5/10 in intensity. He was recently admitted here on 05/27/20 Sepssis, pyelonephritis of the renal allograft with obstructive uropathy. His urine culture was positive for Enterobacter Cloacae, sensitive to meropenem .CT abdomen showed a 7 mm obstructing stone at the UV junction of the transplanted kidney, without hydronephrosis or JEB. Repeat CT abdomen showed absence of obstructing stone, thought to have migrated back into renal pelvis. Given recurrent bouts of pyelonephritis in the transplanted kidney with stones he was transferred to [facility] for possible intervention in transplanted kidney. He did not have any procedures done there. He was discharged from there on 06/06/20 after finishing the course of antibiotics and has an appointment with Dr Young on 06/25/20 for evluation of the stones int he transplant kidney. UA in the ED now shows again TNTC WBCs, LE positive. He has allergies to multiple oral antibiotics. Based on his last urine culture which grew E cloacae needing meropenum he is again admitted for treatment with IV antibiotics for Complicated UTI in transplanted kidney. Pyelonephritis of transplanted kidney Recurrent UTIs since the ureteric stone with obs in aug 2019 and placement of nephrostomy tube Urine culture sent. will start on Ertapenum based on previous c/s grew Enterobacter possibly the renal stone may be a nidus for recurrent infection. Supratherapeutic INR: will reduce dose from 3 mg to 2 mg coumadin Chronic Afib on digoxin. Digoxin and coumadin. Renal stones in transplanted kidney. with ureteric stone x 1 with obstruction in Aug 2019 s/p perc nephrostomy tube in the transplanted kidney now removed in march 2020 Had 2 stones for years seems the 4 mm one has passed when he had the nephrostomy tube but he 7 mm one is still present. patient reports that the transplant kidney has stones from the beginning. He has in fact found out that the other kidney from the same person which went to another person also has stones Chronic anemia iron deficiency. IgA Nephropathy/ ESRD since 1999 s/p R renal transplant 2006 C/w azathioprine, sirolimus, prednisone calcitriol, torsemide. Nephrology follo wing. Hypomagnesemia: magnesium PO. Amiloride 5 mg PO daily. Secondary hyperparathyroidism: Continue current dose of Calcitriol 0.25 mcgfive days a week. Chronic Hypophosphatemia continue nutraphos. CAD: s/p stent 03/19/20. Cont ASA and coumadin. HTN home med amlodipine, amiloride, torsemide Aortic Stenosis: Last echo 05/2019. Repeat annually for surveillance. Ensure cardiology follow up. Neuropathy: Gabapentin , cymbalta, percocet Chronic constipation aggressive bowel regimen. Chronic back pain and neck pain with significant degenerative spine changes, status post reconstructive surgery. The patient remains on chronic pain medications and seems to be doing at about his baseline. Uses a soft collar. On Gabapentin , cymbalta, percocet Plan / VTE VTE Prophylaxis Ordered?: Yes JOSE FUNES MD Jun 18, 2020 18:03
[2020-06-18] MEDS ORDERED: ACETAMINOPHEN TAB 650MG DOSE (2X325MG) PO ONE (22:45)
[2020-06-18] MEDS: hydrOXYzine 25 MG TAB PO PRN (23:10)
[2020-06-19] MEDS: PERCOCET 5MG/325MG TAB PO SCH ×4 (05:04→23:22)
[2020-06-19 05:12] VITALS: BP 123/69
[2020-06-19 06:00] VITALS: BP 123/69
[2020-06-19 07:18] LABS: BASO % 0.2 % (0.0-1.0); EOS # 0.1 10^3/uL (0.0-0.5); EOS % 0.8 % (0.0-3.0); HEMATOCRIT 33.6 % (42.0-52.0); HEMOGLOBIN 10.6 g/dl (13.5-17.5); LYMPH # 2.1 10^3/uL (1.5-5.0); LYMPH % 35.4 % (24.0-44.0); MEAN CORPUSCULAR HGB CONC 31.5 g/dl (32.0-36.5); MEAN CORPUSCULAR VOLUME 92.1 fl (80.0-96.0); MONO # 0.9 10^3/uL (0.0-0.8); MONO % 15.2 % (0.0-5.0); NEUTROPHILS # 2.8 10^3/uL (1.5-8.5); NEUTROPHILS % 47.9 % (36.0-66.0); PLATELET COUNT, AUTOMATED 213 10^3/uL (150-450); RED BLOOD COUNT 3.65 10^6/uL (4.30-6.10); WHITE BLOOD COUNT 5.9 10^3/uL (4.0-10.0)
[2020-06-19 07:29] LABS: BLOOD UREA NITROGEN 12 MG/DL (7-18); CALCIUM LEVEL 9.6 MG/DL (8.8-10.2); CARBON DIOXIDE LEVEL 29 MEQ/L (21-32); CHLORIDE LEVEL 105 MEQ/L (98-107); CREATININE FOR GFR 0.73 MG/DL (0.70-1.30); GLOMERULAR FILTRATION RATE > 60.0 (>42); GLUCOSE, FASTING 144 MG/DL (70-100); POTASSIUM SERUM 3.2 MEQ/L (3.5-5.1); SODIUM LEVEL 140 MEQ/L (136-145)
[2020-06-19 07:33] LABS: MAGNESIUM LEVEL 1.6 MG/DL (1.8-2.4); PHOSPHORUS LEVEL 2.6 MG/DL (2.5-4.9)
[2020-06-19] MEDS: BISACODYL 10 MG SUPP PR SCH ×2 (09:00→21:53)
[2020-06-19] MEDS ORDERED: SIROLIMUS 1 MG TAB (RAPAMUNE) PO SCH (09:00)
[2020-06-19 09:08] LABS: ALBUMIN 3.5 GM/DL (3.2-5.2); ALT/SGPT 19 U/L (12-78); BILIRUBIN,DIRECT 0.1 MG/DL (0.0-0.2); BILIRUBIN,TOTAL 0.4 MG/DL (0.2-1.0); TOTAL PROTEIN 7.2 GM/DL (6.4-8.2)
[2020-06-19] MEDS: CALCITRIOL 0.25 MCG CAP (S0169) PO SCH (09:11)
[2020-06-19] MEDS: DULoxetine 30 MG CAP (CYMBALTA) PO SCH (09:11)
[2020-06-19] MEDS: aMILoride 5 MG TAB PO SCH (09:11)
[2020-06-19] MEDS: TORSEMIDE 20 MG TAB PO SCH (09:11)
[2020-06-19] MEDS: predniSONE 5 MG TAB PO SCH (09:11)
[2020-06-19] MEDS: ASPIRIN 81 MG ENTERIC TAB PO SCH (09:11)
[2020-06-19] MEDS: GABAPENTIN 300 MG CAP PO SCH ×3 (09:12→21:53)
[2020-06-19] MEDS: MAGNESIUM GLUCONATE 500 MG TAB PO SCH ×2 (09:12→21:53)
[2020-06-19] MEDS: DIGOXIN 0.125 MG TAB PO SCH (09:12)
[2020-06-19] MEDS: K-PHOS NEUTRAL 250MG TABLET (SOD.PHOSPHATE/POT.PHOSPHATE) PO SCH ×2 (09:12→21:54)
[2020-06-19] MEDS: VITAMIN B COMPLEX/VIT C CAP PO SCH (09:12)
[2020-06-19] MEDS: SENOKOT S TAB PO SCH ×2 (09:13→21:52)
[2020-06-19] MEDS: POTASSIUM CHLORIDE 10 MEQ SR TABLET PO SCH ×2 (09:13→21:54)
[2020-06-19] MEDS: MIRALAX *UNIT DOSE* 17GM PACKET PO SCH ×2 (09:13→21:52)
[2020-06-19] MEDS: azaTHIOprine 50 MG TAB (J7500) PO SCH (09:13)
[2020-06-19] MEDS: RAPAMUNE PO SCH (09:19)
[2020-06-19] MEDS ORDERED: PERCOCET 5MG/325MG TAB PO PRN (10:45)
[2020-06-19 11:23] LABS: INR 3.75; PROTHROMBIN TIME 37.9 SECONDS (12.5-14.3)
[2020-06-19] MEDS ORDERED: ONDANSETRON 4MG/2ML VIAL IV PRN (13:00)
[2020-06-19 14:00] VITALS: BP 122/71
--- NOTE | 2020-06-19 14:54 | IPNPDOC ---
Subjective Date Seen The patient was seen on 06/19/20. Subjective Chief Complaint/HPI No acute events overnight. No fever or chills, continues to have RLQ pain no dysuria this morning. He had pain in both his arms overnight extending from the hands to the shoulders. reported that heating pad helped. Objective Physical Examination General Exam: Positive: Alert, Cooperative, No Acute Distress Eye Exam: Positive: PERRLA, Conjunctiva & lids normal, EOMI; Negative: Sclera icteric ENT Exam: Positive: Atraumatic, Mucous membr. moist/pink, Pharynx Normal Neck Exam: Positive: Supple; Negative: JVD, thyromegaly Chest Exam: Positive: Clear to auscultation, Normal air movement Heart Exam: Positive: Rate Normal, Regular Rhythm, Normal S1, Normal S2; Negative: Murmurs, Rubs Abdomen Exam: Positive: Normal bowel sounds, Soft, Tenderness (right illiac fossa); Negative: Hepatospenomegaly Extremity Exam: Negative: Clubbing, Cyanosis, Edema Neuro Exam: Positive: Normal Speech, Strength at 5/5 X4 ext, Normal Tone Assessment /Plan Assessment 75 year old male with h/o IgA nephropathy, ESRD since 1999 s/p renal Tx in 2006 now with renal stones in the transplanted kidney since 2019 with obstruction in the transplanted kidney in aug 2019 requiring nephrostomy tube, recurrent UTIs since aug 2019 presented to ED with 1 day h/o dysuria, right lower quadrant pain. No hematuria, no fever. The pain is dull aching type with no radiation about 5/10 in intensity. He was recently admitted here on 05/27/20 Sepssis, pyelonephritis of the renal allograft with obstructive uropathy. His urine culture was positive for Enterobacter Cloacae, sensitive to meropenem .CT abdomen showed a 7 mm obstructing stone at the UV junction of the transplanted kidney, without hydronephrosis or JEB. Repeat CT abdomen showed absence of obstructing stone, thought to have migrated back into renal pelvis. Given recurrent bouts of pyelonephritis in the transplanted kidney with stones he was transferred [facility] intervention in transplanted kidney. He did not have any procedures done there. He was discharged from there on 06/06/20 after finishing the course of antibiotics and has an appointment with Dr Young on 06/25/20 for evluation of the stones int he transplant kidney. UA in the ED now shows again TNTC WBCs, LE positive. He has allergies to multiple oral antibiotics. Based on his last urine culture which grew E cloacae needing meropenum he is again admitted for treatment with IV antibiotics for Complicated UTI in transplanted kidney. Pyelonephritis of transplanted kidney Recurrent UTIs since the ureteric stone with obs in aug 2019 and placement of nephrostomy tube Urine culture sent. will start on Ertapenum based on previous c/s grew Enterobacter possibly the renal stone may be a nidus for recurrent infection. Urine culture now no growth. ID consult Supratherapeutic INR: will hold today. Chronic Afib Digoxin and coumadin. Renal stones in transplanted kidney. with ureteric stone x 1 with obstruction in Aug 2019 s/p perc nephrostomy tube in the transplanted kidney now removed in march 2020 Had 2 stones for years seems the 4 mm one has passed when he had the nephrostomy tube but he 7 mm one is still present. patient reports that the transplant kidney has stones from the beginning. He has in fact found out that the other kidney from the same person which went to another person also has stones CAD: s/p stent 03/19/20. Cont ASA and coumadin. No issues now. Chronic anemia iron deficiency. IgA Nephropathy/ ESRD since 1999 s/p R renal transplant 2006 C/w azathioprine, sirolimus, prednisone calcitriol, torsemide. Nephrology consult Hypomagnesemia: magnesium PO. Amiloride 5 mg PO daily. Secondary hyperparathyroidism: Continue current dose of Calcitriol 0.25 mcgfive days a week. Chronic Hypophosphatemia continue nutraphos. HTN home med amlodipine, amiloride, torsemide Aortic Stenosis: Last echo 05/2019. Repeat annually for surveillance. Ensure cardiology follow up. Neuropathy: Gabapentin , cymbalta, percocet Chronic constipation aggressive bowel regimen. Chronic back pain and neck pain with significant degenerative spine changes, status post reconstructive surgery. The patient remains on chronic pain medications and seems to be doing at about his baseline. Uses a soft collar. On Gabapentin , cymbalta, percocet Plan/VTE VTE Prophylaxis Ordered?: Yes VS, I&O, 24H, Fishbone Vital Signs/I&O Vital Signs Date Time Temp Pulse Resp B/P (MAP) Pulse Ox O2 Delivery O2 Flow Rate FiO2 06/19/20 05:34 16 06/18/20 22:00 98.3 77 126/70 (88) 99 Room Air I&O- Last 24 Hours up to 6 AM 06/19/20 07:00 Intake Total 930 ml Output Total 1070 ml Balance -140 ml Laboratory Data 24H LABS Laboratory Tests 2 06/18/20 11:28: Urine Color SANDEEP, Urine Appearance CLOUDYH, Urine pH 6.0, Urine Specific [place] 1.010, Urine Protein NEGATIVE, Urine Glucose (UA) NEGATIVE, Urine Ketones NEGATIVE, Urine Blood 1+H, Urine Nitrite NEGATIVE, Urine Bilirubin NEGATIVE, Urine Urobilinogen 0.2, Urine Leukocyte Esterase 3+H, Urine WBC (Auto) TNTCH, Urine RBC (Auto) 23H, Urine Hyaline Casts (Auto) 0, Urine Bacteria (Auto) 1+H, Urine Squamous Epithelial Cells 0, Urine Sperm (Auto) 06/18/20 11:45: Immature Granulocyte % (Auto) 0.5, Neutrophils (%) (Auto) 66.1H, Lymphocytes (%) (Auto) 24.0, Monocytes (%) (Auto) 9.3H, Eosinophils (%) (Auto) 0.0, Basophils (%) (Auto) 0.1, Neutrophils # (Auto) 4.9, Lymphocytes # (Auto) 1.8, Monocytes # (Auto) 0.7, Eosinophils # (Auto) 0.0, Basophils # (Auto) 0.0, Nucleated Red Blood Cells % (auto) 0.0, Prothrombin Time 36.5H, Prothromb Time International Ratio 3.57, Anion Gap 5L, Glomerular Filtration Rate > 60.0, Calcium Level 10.3H CBC/BMP Laboratory Tests 06/18/20 11:45 Microbiology Microbiology 06/18/20 Blood Culture, Received Pending 06/18/20 Blood Culture, Received Pending 06/18/20 Urine Culture, Received Pending JOSE FUNES MD Jun 19, 2020 06:17
[2020-06-19] MEDS ORDERED: ERTAPENEM SODIUM 1 GM in NS MINI-BAG PLUS 50 ML IV SCH (16:00)
[2020-06-19 22:00] VITALS: BP 110/66
[2020-06-19] MEDS: hydrOXYzine 25 MG TAB PO PRN (23:26)
[2020-06-20] MEDS: PERCOCET 5MG/325MG TAB PO SCH ×2 (05:34→12:16)
[2020-06-20 06:00] VITALS: BP 119/67
[2020-06-20 07:34] LABS: BASO % 0.2 % (0.0-1.0); EOS # 0.1 10^3/uL (0.0-0.5); EOS % 1.2 % (0.0-3.0); HEMATOCRIT 32.5 % (42.0-52.0); LYMPH # 1.9 10^3/uL (1.5-5.0); LYMPH % 32.4 % (24.0-44.0); MEAN CORPUSCULAR HEMOGLOBIN 28.5 pg (27.0-33.0); MEAN CORPUSCULAR HGB CONC 30.8 g/dl (32.0-36.5); MEAN CORPUSCULAR VOLUME 92.6 fl (80.0-96.0); MONO # 0.9 10^3/uL (0.0-0.8); NEUTROPHILS % 50.4 % (36.0-66.0); PLATELET COUNT, AUTOMATED 182 10^3/uL (150-450); RED BLOOD COUNT 3.51 10^6/uL (4.30-6.10); WHITE BLOOD COUNT 5.9 10^3/uL (4.0-10.0)
[2020-06-20 07:56] LABS: BLOOD UREA NITROGEN 15 MG/DL (7-18); CALCIUM LEVEL 9.2 MG/DL (8.8-10.2); CARBON DIOXIDE LEVEL 30 MEQ/L (21-32); CHLORIDE LEVEL 105 MEQ/L (98-107); CREATININE FOR GFR 0.76 MG/DL (0.70-1.30); GLOMERULAR FILTRATION RATE > 60.0 (>42); GLUCOSE, FASTING 109 MG/DL (70-100); POTASSIUM SERUM 3.8 MEQ/L (3.5-5.1); SODIUM LEVEL 141 MEQ/L (136-145)
[2020-06-20 08:30] LABS: INR 3.06; PROTHROMBIN TIME 32.3 SECONDS (12.5-14.3)
[2020-06-20] MEDS: MIRALAX *UNIT DOSE* 17GM PACKET PO SCH (09:00)
[2020-06-20] MEDS: BISACODYL 10 MG SUPP PR SCH (09:00)
[2020-06-20] MEDS ORDERED: FLUBLOK(EGG FREE)(QUAD)INFLUENZA VACC 0.5ML SYRINGE 18YRS & OLDER IM ONE (09:00)
[2020-06-20] MEDS: ASPIRIN 81 MG ENTERIC TAB PO SCH (09:13)
[2020-06-20] MEDS: DIGOXIN 0.125 MG TAB PO SCH (09:13)
[2020-06-20] MEDS: RAPAMUNE PO SCH (09:13)
[2020-06-20] MEDS: SENOKOT S TAB PO SCH (09:13)
[2020-06-20] MEDS: CALCITRIOL 0.25 MCG CAP (S0169) PO SCH (09:13)
[2020-06-20] MEDS: GABAPENTIN 300 MG CAP PO SCH (09:13)
[2020-06-20] MEDS: TORSEMIDE 20 MG TAB PO SCH (09:13)
[2020-06-20 09:14] VITALS: BP 119/67
[2020-06-20] MEDS: predniSONE 5 MG TAB PO SCH (09:14)
[2020-06-20] MEDS: MAGNESIUM GLUCONATE 500 MG TAB PO SCH (09:14)
[2020-06-20] MEDS: POTASSIUM CHLORIDE 10 MEQ SR TABLET PO SCH (09:14)
[2020-06-20] MEDS: azaTHIOprine 50 MG TAB (J7500) PO SCH (09:14)
[2020-06-20] MEDS: K-PHOS NEUTRAL 250MG TABLET (SOD.PHOSPHATE/POT.PHOSPHATE) PO SCH (09:14)
[2020-06-20] MEDS: aMILoride 5 MG TAB PO SCH (09:15)
[2020-06-20] MEDS: DULoxetine 30 MG CAP (CYMBALTA) PO SCH (09:15)
[2020-06-20] MEDS: VITAMIN B COMPLEX/VIT C CAP PO SCH (09:15)
[2020-06-20 10:09] LABS: C REACTIVE PROTEIN QUANTITATIV 1.37 MG/DL (0.00-0.30)
[2020-06-20] MEDS ORDERED: BACT800T5 PO (11:06)
[2020-06-20] MEDS ORDERED: BISA10SU PR (11:06)
[2020-06-20] MEDS ORDERED: WARF-58 PO (11:06)
--- NOTE | 2020-06-20 13:08 | CR ---
DATE OF CONSULTATION: 06/19/2020 CONSULTATION FOR: Noemy Munoz M.D. REASON FOR CONSULTATION: To assist in the management of kidney transplant. HISTORY OF PRESENT ILLNESS: Mr. Kwon is a 75-year-old gentleman with end stage renal disease, status post kidney transplant. Patient has history of recurrent kidney stones and recurrent pyelonephritis. He has been admitted to [facility] multiple times. He had a nephrostomy tube placed in his transplant kidney last year due to ureteral stone, which was removed a couple of months ago. Since then, he has been treated with intravenous antibiotics for recurrent pyelonephritis. He was admitted yesterday again due to urinary symptoms and possible pyelonephritis. Nephrology consultation was requested, and patient is seen this morning. MEDICAL HISTORY: Significant for: 1. End stage renal disease, status post kidney transplant. 2. History of recurrent kidney stones. 3. History of degenerative arthritis. 4. History of severe osteoporosis. 5. History of coronary artery disease, status post angioplasty with stent. 6. History of heart t. 7. History of atrial fibrillation. 8. History of degenerative disk disease, status post multiple surgeries on cervical and thoracolumbar spine. 9. History of secondary hyperparathyroidism. SURGICAL HISTORY: Significant for: 1. Multiple surgeries for arteriovenous (AV) fistula and graft, both arms. 2. Kidney transplant. 3. Bilateral shawnee kidney nephrectomies. 4. Multiple hernia surgeries. 5. Nephrostomy tube placement and removal in the transplant kidney. HOME MEDICATIONS: - amiloride 5 mg daily - amlodipine 2.5 mg daily - aspirin 81 mg daily - Imuran 100 mg daily - calcitriol 0.25 mcg five times a week - digoxin 125 mcg daily - Cymbalta 30 mg daily - gabapentin 300 mg three times a day - magnesium gluconate six tablets twice a day - melatonin 10 mg at bedtime - Percocet one tablet every 6 hours as needed for pain - prednisone 5 mg daily - sirolimus 2 mg daily - torsemide 20 mg daily - multivitamin one tablet daily - Coumadin 3 mg daily - diazepam 2 mg three times a day as needed for anxiety - cyclobenzaprine 10 mg as needed for muscle spasm - hydroxyzine 50 mg at bedtime for insomnia ALLERGIES: Patient has multiple allergies, which are recorded in his electronic medical record (EMR). PERSONAL AND SOCIAL HISTORY: Patient is and lives with his . He does not smoke or drink. There is no history of drug use. FAMILY HISTORY: Unremarkable and negative for end stage renal disease. REVIEW OF SYSTEMS: Patient denies any fever or chills. His urine was cloudy, and he had dysuria, due to which he came to the emergency room yesterday. Ears, nose, and throat are unremarkable. Cardiovascular system negative for dyspnea or chest pain. He has history of coronary artery disease and had an angioplasty with stent about 4 months ago. Respiratory system is negative for cough or hemoptysis. Gastrointestinal (GI) system negative for nausea or vomiting. He denies any abdominal pain at present. Genitourinary () system is as per history of present illness. Musculoskeletal system is significant for chronic pain in his back, neck, and arms. He has difficulty ambulating, but he does manage to ambulate with the help of a walker. Psychosocial system is significant for anxiety and depression. Neurological system is significant for severe neuropathy. Hematological system is significant for chronic anticoagulation due to atrial fibrillation. Skin is negative for rash or ulcers. PHYSICAL EXAMINATION: Patient is awake and alert at the time of my visit. He is sitting at the edge of bed. Pain in his transplant kidney has already improved. EARS, NOSE, AND THROAT: Unremarkable. CARDIOVASCULAR: Reveals no jugular venous distention (JVD) or leg edema. His heart sounds are regular with a systolic murmur, grade 2/6. LUNGS: Clear to auscultation. ABDOMEN: Soft and nontender. Multiple scars from prior hernia surgeries are present. Transplant kidney is nontender. EXTREMITIES: No cyanosis or clubbing. He is wearing compression stockings. NEUROLOGIC: He is awake, alert, and at his baseline mentation without a focal deficit. LABORATORY DATA: WBC count 7.5, hemoglobin 11.7, hematocrit 37.5. Sodium 139 and potassium 4.0 yesterday. Today his potassium is 3.2. BUN is 12 and creatinine 0.73. Urinalysis showed cloudy urine with too numerous to count WBC and 23 RBC. Urine culture is reported negative today. Blood cultures are still pending. PROBLEMS: 1. 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 Patient has been treated multiple times for this infection with Enterobacter cloacae. Ultrafiltration, he is intolerant of levofloxacin and is not a suitable candidate for Bactrim due to kidney transplant. I will recommend to continue with intravenous antibiotic. He has been treated multiple times for the same infection, and I will recommend extended antibiotic therapy at this time with possible peripherally inserted central catheter (PICC) line placement. 2. Kidney transplant status. His transplant kidney has been functioning very well, and chronic antirejection medications will be continued. 3. Recurrent kidney stones. Patient did not have kidney stones in his shawnee kidneys, but since his transplant he heart as recurrent stones. Apparently this is a donor kidney related problem. He does have one stone in his transplant renal pelvis without any obstruction. He will need this stone removed at some point. 4. Hypertension. Blood pressure remains well controlled on current medications, and his chronic medications should be continued. 5. Hypokalemia. This is related to diuretic, and will replace his potassium at 20 mEq twice a day. 6. Chronic leg edema and congestive heart failure. His volume status is reasonably well compensated and continue with chronic diuretic therapy with torsemide 20 mg daily. Thank you for involving me in the care of Mr. Kwon. I will follow him along with you. VAIBHAV
--- NOTE | 2020-06-20 17:15 | DS.PDOC ---
Discharge Summary General Date of Admission Jun 18, 2020 at 13:36 Date of Discharge 06/20/20 Discharge Summary PROCEDURES PERFORMED DURING STAY: [None]. DISCHARGE DIAGNOSES: Complicated Pyelonephritis of transplanted kidney Kidney stone in transplanted kidney H/o ESRD due to IgA nephropathy Renal transplant status SECONDARY DIAGNOSIS: IgA Nephropathy ESRD since 1999 s/p renal transplant in 2006 Renal stones in transplanted kidney seen 3 months after transplant Ureteric stone in aug 2019 causing obs of transplanted kidney requiring Perc nephrostomy tube into the transplanted kidney, removed in March 2020. Recurrent UTIs from 2019 CAD s/p stents x 6 last in (03/19/2020) Mod/Severe Aortic stenosis Atrial fibrillation (on Coumadin) Chronic HTN Neuropathy Iron deficiency anemia Hypomagnesemia hypophosphatemia secondary hyperparathyroidism. Osteoporosis GERD Hernia surgeries Multiple spinal surgeries Neck surgeries with collar status post thoracolumbar fusion, bilateral nephrectomies, ventral hernia repair Epigastric hernia transmitting small bowel and Left inguinal hernia transmitting large bowel. COMPLICATIONS/CHIEF COMPLAINT: Complicated Uti. HOSPITAL COURSE: 75 year old male with h/o IgA nephropathy, ESRD since 1999 s/p renal Tx in 2006 now with renal stones in the transplanted kidney since 2018 with obstruction in the transplanted kidney in aug 2019 requiring nephrostomy tube, recurrent UTIs since aug 2019 presented to ED with 1 day h/o dysuria, right lower quadrant pain. No hematuria, no fever. The pain is dull aching type with no radiation about 5/10 in intensity. He was recently admitted here on 05/27/20 Sep[place]is, pyelonephritis of the renal allograft with obstructive uropathy. His urine culture was positive for Enterobacter Cloacae, sensitive to meropenem .CT abdomen showed a 7 mm obstructing stone at the UV junction of the transplanted kidney, without hydronephrosis or JEB. Repeat CT abdomen showed absence of obstructing stone, thought to have migrated back into renal pelvis. Given recurrent bouts of pyelonephritis in the transplanted kidney with stones he was transferred to [facility] for possible intervention in transplanted kidney. He did not have any procedures done there. He was discharged from there on 06/06/20 after finishing the course of antibiotics and has an appointment with Dr Young on 06/25/20 for evluation of the stones int he transplant kidney. UA in the ED now shows again TNTC WBCs, LE positive. He has allergies to multiple oral antibiotics. Based on his last urine culture which grew E cloacae needing meropenum he is again admitted for treatment with IV antibiotics for Complicated UTI in transplanted kidney. Pyelonephritis of transplanted kidney Recurrent UTIs since the ureteric stone with obs in aug 2019 and placement of nephrostomy tube possibly the renal stone may be a nidus for recurrent infection. Urine culture sent this admission no growth probably has been on antibiotics. U/A suggestive of infection previous c/s grew Enterobacter cloacae will discharge with Bactrim DS ID consult appreciated. Supratherapeutic INR: will reduce dose of coumadin. Chronic Afib Digoxin and coumadin. Renal stones in transplanted kidney. with ureteric stone x 1 with obstruction in Aug 2019 s/p perc nephrostomy tube in the transplanted kidney now removed in march 2020 Had 2 stones for years seems the 4 mm one has passed when he had the nephrostomy tube but he 7 mm one is still present. patient reports that the transplant kidney has stones from the beginning. He has in fact found out that the other kidney from the same person which went to another person also has stones Has procedure planned with Dr Young transplant urologist for 07/16/20 for removal of the stone. CAD: s/p stent 03/19/20. Cont ASA and coumadin. No issues now. Chronic anemia iron deficiency. IgA Nephropathy/ ESRD since 1999 s/p R renal transplant 2006 C/w azathioprine, sirolimus, prednisone calcitriol, torsemide. Nephrology consult Hypomagnesemia: magnesium PO. Amiloride 5 mg PO daily. Secondary hyperparathyroidism: Continue current dose of Calcitriol 0.25 mcgfive days a week. Chronic Hypophosphatemia continue nutraphos. HTN home med amlodipine, amiloride, torsemide Aortic Stenosis: Last echo 05/2019. Repeat annually for surveillance. Ensure cardiology follow up. Neuropathy: Gabapentin , cymbalta, percocet Chronic constipation aggressive bowel regimen. Chronic back pain and neck pain with significant degenerative spine changes, status post reconstructive surgery. The patient remains on chronic pain medications and seems to be doing at about his baseline. Uses a soft collar. On Gabapentin , cymbalta, percocet DISCHARGE MEDICATIONS: Please see below. ALLERGIES: Please see below. PHYSICAL EXAMINATION ON DISCHARGE: VITAL SIGNS: Please see below. General Exam: Positive: Alert, Cooperative, No Acute Distress Eye Exam: Positive: PERRLA, Conjunctiva & lids normal, EOMI; Negative: Sclera icteric ENT Exam: Positive: Atraumatic, Mucous membr. moist/pink, Pharynx Normal Neck Exam: Positive: Supple; Negative: JVD, thyromegaly Chest Exam: Positive: Clear to auscultation, Normal air movement Heart Exam: Positive: Rate Normal, Regular Rhythm, Normal S1, Normal S2; Systolic murmur present Negative: gallop or Rubs Abdomen Exam: Positive: Normal bowel sounds, Soft, Tenderness (right illiac f sarah); Negative: Hepatospenomegaly Extremity Exam: Negative: Clubbing, Cyanosis, Edema Neuro Exam: Positive: Normal Speech, Strength at 5/5 X4 ext, Normal Tone LABORATORY DATA: Please see below. ACTIVITY: [As tolerated]. DIET: As tolerated DISPOSITION: Home Health Service. DISCHARGE INSTRUCTIONS: Follow up Dr Alcantar in 1 week DISCHARGE CONDITION: [Stable]. TIME SPENT ON DISCHARGE: 35 minutes. Vital Signs/I&Os Vital Signs Date Time Temp Pulse Resp B/P (MAP) Pulse Ox O2 Delivery O2 Flow Rate FiO2 06/20/20 12:46 18 06/20/20 09:14 66 119/67 06/20/20 06:00 98.1 95 Room Air I&O- Last 24 Hours up to 6 AM 06/20/20 05:59 Intake Total 1150 ml Output Total 2450 ml Balance -1300 ml Laboratory Data Labs 24H Laboratory Tests 2 06/20/20 07:14: Immature Granulocyte % (Auto) 0.8, Neutrophils (%) (Auto) 50.4, Lymphocytes (%) (Auto) 32.4, Monocytes (%) (Auto) 15.0H, Eosinophils (%) (Auto) 1.2, Basophils (%) (Auto) 0.2, Neutrophils # (Auto) 3.0, Lymphocytes # (Auto) 1.9, Monocytes # (Auto) 0.9H, Eosinophils # (Auto) 0.1, Basophils # (Auto) 0.0, Nucleated Red Blood Cells % (auto) 0.0, Anion Gap 6L, Glomerular Filtration Rate > 60.0, Calcium Level 9.2, C-Reactive Protein, Quantitative 1.37H 06/20/20 08:09: Prothrombin Time 32.3H, Prothromb Time International Ratio 3.06 CBC/BMP Laboratory Tests 06/20/20 07:14 Microbiology Microbiology 06/18/20 Blood Culture - Preliminary, Resulted No Growth after 48 hours. All Specime... 06/18/20 Blood Culture - Preliminary, Resulted No Growth after 48 hours. All Specime... 06/18/20 Urine Culture - Final, Complete Discharge Medications Scheduled Amiloride HCl (Amiloride HCl) 5 Mg Tablet, 5 MG PO DAILY, (Reported) Amlodipine Besylate (Amlodipine Besylate) 2.5 Mg Tablet, 2.5 MG PO DAILY, (Reported) Aspirin (Aspir 81) 81 Mg Tab, 81 MG PO DAILY, (Reported) Azathioprine (Azathioprine) 50 Mg Tablet, 100 MG PO DAILY, (Reported) Calcitriol (Calcitriol) 0.25 Mcg Cap, 0.25 MCG PO 5XW, (Reported) MON-FRI Digoxin (Digoxin) 125 Mcg Tablet, 125 MCG PO DAILY, (Reported) Duloxetine Hcl (Cymbalta) 30 Mg Capsule.dr, 30 MG PO DAILY, (Reported) Gabapentin (Gabapentin) 300 Mg Capsule, 600 MG PO TID, (Reported) Magnesium Gluconate (Magnesium Gluconate) 27 Mg Tablet, 6 TABS PO BID, (R eported) Melatonin (Melatonin) 10 Mg Capsule, 10 MG PO QHS, (Reported) Oxycodone HCl/Acetaminophen (Oxycodone-Acetaminophen 5-325) 1 Each Tablet, 1 TAB PO Q6H, (Reported) Prednisone (Prednisone) 5 Mg Tab, 5 MG PO DAILY, (Reported) Sirolimus (Rapamune) 1 Mg Tablet, 2 MG PO DAILY, (Reported) Sod Phos Di, [place]/K Phos [place] (Virt-Phos 250 Neutral Tablet) 1 Tab Tab, 2 TAB PO BID, (Reported) Sulfamethoxazole/Trimethoprim (Bactrim Ds Tablet) 1 Each Tablet, 1 TAB PO BID Torsemide (Torsemide) 20 Mg Tablet, 20 MG PO DAILY, (Reported) Vitamin B Complex Vit C No.3 (B Complex with Vitamin C) 1 Cap Cap, 1 CAP PO DAILY, (Reported) Warfarin Sodium (Warfarin Sodium) 3 Mg Tablet, 2 MG PO QPM Scheduled PRN Acetaminophen (Acetaminophen) 325 Mg Tablet, 650 MG PO Q4H PRN for PAIN, (Reported) Bisacodyl (Bisacodyl) 10 Mg Supp.rect, 10 MG AK BIDP PRN for CONSTIPATION Cyclobenzaprine HCl (Cyclobenzaprine HCl) 10 Mg Tablet, 10 MG PO BID PRN for MUSCLE SPASMS, (Reported) Diazepam (Diazepam) 2 Mg Tablet, 2 MG PO TID PRN for ANXIETY, (Reported) Docusate Sodium (Docusate Sodium) 100 Mg Capsule, 100 MG PO DAILY PRN for CONSTIPATION, (Reported) Hydroxyzine HCl (Hydroxyzine HCl) 25 Mg Tablet, 50 MG PO QHS PRN for INSOMNIA, (Reported) Lidocaine (Lidoderm) 5% Adh..patch, 1 PATCH TOP DAILY PRN for PAIN, (Reported) APPLY TO BACK 12HR ON, 12HR OFF Methyl Salicylate/Menthol (Icy Hot Cream) 35.4 Gm Cream..g., 1 APLCT TOP DAILY PRN for BACK PAIN, (Reported) Ondansetron HCl (Zofran) 4 Mg Tablet, 4 MG PO TID PRN for NAUSEA OR VOMITING, (Reported) Polyethylene Glycol 3350 (Miralax) 119 Gm Powder, 17 GRAM PO QHS PRN for CONSTIPATION, (Reported) DISSOLVE IN WATER OR JUICE Sennosides (Senna Lax) 8.6 Mg Tablet, 8.6 MG PO BID PRN for CONSTIPATION, (Reported) Allergies Coded Allergies: cefuroxime (Verified Adverse Reaction, Mild, ANXIETY, 12/20/18) codeine (Verified Adverse Reaction, Mild, AGITATION, 12/20/18) doxycycline (Verified Adverse Reaction, Mild, UPSET STOMACH, 01/14/20) lorazepam (Verified Adverse Reaction, Mild, AGITATION, 12/20/18) pregabalin (Verified Adverse Reaction, Mild, ANXIETY, DROWSINESS, 01/14/20) amoxicillin (Verified Adverse Reaction, Unknown, can take few prior to dentist but can not take for 10 days, 01/14/20) ciprofloxacin (Verified Adverse Reaction, Unknown, HEART RACES, 04/10/20) levofloxacin (Verified Adverse Reaction, Unknown, HEART RACES, 02/07/20) tizanidine (Verified Adverse Reaction, Unknown, 01/14/20) JOSE FUNES MD Jun 20, 2020 17:14
--- NOTE | 2020-06-27 08:22 | CR ---
DATE OF CONSULTATION: 06/19/2020 Asked to consult by hospitalist for evaluation of group A streptococcal cellulitis with infected hematoma. HISTORY OF PRESENT ILLNESS: Mr. Kwon is a 75-year-old gentleman with a history of recurrent complicated urinary tract infection. He has a history of IgA nephropathy with end stage renal disease since 1999. He had a renal transplant in 2006, which has worked very well. The patient has had recurrent urinary tract infections since this year. He has a renal stone in the transplanted kidney since 2018 with obstruction. The patient had a nephrostomy tube in 2018, which was complicated with more infection. He was admitted in January 13 until January 17 with bacteremia with Enterobacter cloacae and a positive urine culture. He was treated with intravenous (IV) ceftriaxone. He was readmitted on February 06 and discharged on February 11, treated with IV meropenem, followed by cefdinir. Also urine culture was positive for Enterobacter cloacae. On April 29, he was readmitted with again similar symptoms. A urine culture was negative, but the patient received IV meropenem for 13 days based on a urine culture that was done on 04/10/2020 with Enterobacter cloacae. On May 27, urine culture again had Enterobacter cloacae. Patient was hospitalized until June 02, treated with IV meropenem and transferred to [facility] for evaluation and extraction of the stone. The patient was continued on antibiotics and discharged home. He comes in again complaining of worsening neck pain, back pain, generally not feeling well, and his urinalysis had too numerous to count white cells. He was complaining of worsening dysuria. Patient was restarted on IV ertapenem 1 gram daily, feeling slightly better. MEDICAL HISTORY: Significant for: 1. IgA nephropathy with end stage renal disease, status post renal transplant in 2006. 2. Renal stone in transplanted kidney. 3. Ureteric stone August 2019, status post nephrostomy, which was removed in March 2020. 4. Recurrent urinary tract infection. 5. Coronary artery disease, status post stenting 03/19/2020. 6. Moderate to severe aortic stenosis. 7. Atrial fibrillation, on Coumadin. 8. Chronic hypertension. 9. Neuropathy. 10. Iron deficiency anemia. 11. Hypomagnesemia. 12. Secondary hyperparathyroidism. 13. Osteoporosis. 14. Gastroesophageal reflux disease. SURGICAL HISTORY: 1. 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 2. Hernia surgeries. Persistent inguinal hernia, left side. Epigastric hernia. FAMILY HISTORY: Heart disease. SOCIAL HISTORY: He does not smoke. He quit. Does not drink or use drugs. He lives with his . REVIEW OF SYSTEMS: Patient has chronic neck back pain, neck pain. He denies any fever or chills. Whenever he has urinary tract infection, he has generalized body ache with worsening neck and back pain. He has no nausea, vomiting, or diarrhea. He has abdominal pain, right lower quadrant. He has dysuria. ALLERGIES: AMOXICILLIN, CEFUROXIME, CIPROFLOXACIN gives him anxiety. LEVOFLOXACIN gives him tachycardia or bradycardia. TIZANIDINE confusion, PREGABALIN. MEDICATIONS: - Invanz 1 gram IV every 24 hours - Percocet 5/325 one tablet every 4 as needed - amiloride 5 mg by mouth daily - amlodipine 2.5 mg daily - aspirin 81 mg daily - Imuran 100 mg by mouth daily - digoxin 0.125 mg daily - duloxetine 30 mg by mouth daily - prednisone 5 mg by mouth daily - torsemide 20 mg daily - vitamin B complex daily - potassium 20 mEq by mouth twice a day - magnesium gluconate 3000 mg by mouth twice a day - Senokot two tablets by mouth every night - MiraLax one tablet by mouth twice a day - Percocet one tablet by mouth every 6 as needed - gabapentin 600 mg by mouth three times a day - Flexeril 10 mg by mouth twice a day as needed - hydroxyzine 50 mg by mouth every night as needed LABORATORY DATA: White count 5.9, hemoglobin 10.6, hematocrit 33.6, platelets 214, 47% neutrophils, 35% lymphocytes, 15% monocytes. Sodium 140, potassium 3.2, chloride 105, bicarbonate 29, BUN 12, creatinine 0.73, glucose 144, calcium 9.6, magnesium 1.6, phosphorus 2.6. AST 24, ALT 19, alkaline phosphatase Urinalysis had too numerous to count white cells, 23 red cells, cloudy urine. Urine culture on June 18 is no growth. Blood cultures, two sets, were no growth after 24 hours. IMAGING: Last done on 05/31/2020 and showed a prominence of the left right proximal renal transplanted ureter with a calcification that was seen in the UPJ was no longer present. Suspicion that it has migrated to the renal pelvis. Multiple nonobstructive stones in both kidneys. Stomach and bowel: No obstruction. No mucosal thickening. Appendix not inflamed. PHYSICAL EXAMINATION: Temperature is 98.6, pulse 85, respirations 18, blood pressure 100 /71, oxygen saturation 95% on room air. HEART: Normal S1, S2. Soft ejection murmur, 2/6. LUNGS: Clear. No wheezes, rales, or rhonchi. ABDOMEN: Soft, tender in the right lower quadrant. Multiple surgical scars, well healed. Left inguinal hernia. BACK: Mild lumbosacral tenderness. Multiple back surgeries. EXTREMITIES: Pitting edema 1+ bilaterally. IMPRESSION: Chronic urinary tract infection of the right transplanted kidney with Enterobacter cloacae documented since December 2019 with three positive cultures. December 2019 was positive on blood and urine, April 10, urine culture was positive for Enterobacter (E) cloacae, and May 27 urine culture was positive for E.cloacae The fact that it is the same pathogen during these whole episodes without any improvement in symptoms in spite of being on broad-spectrum antibiotics with IV ceftriaxone initially, now Enterobacter has developed resistance and the patient is treated with meropenem and carbapenem, makes likelihood that this is a colonized stone causing the problem very likely. PLAN: Continue with IV ertapenem 1 gram every 24 hours. Will discuss with urology when the surgery cold be done. Peripherally inserted central catheter (PICC) line placement for home IV antibiotic. I have discussed the case with patient and family services (PFS) to convince the patient that he would do better with home IV antibiotics rather than come to the infusion unit. Will also discuss the case with neurology in [place] to schedule an appointment for kidney removal as soon as possible. Case has been discussed with Dr. Alcantar. VAIBHAV
--- NOTE | 2020-06-27 08:26 | IPN ---
DATE: 06/20/2020 SUBJECTIVE: Mr. Kwon is seen this morning at his bedside. He is feeling well and remains afebrile. He was seen by Dr. Johns who has also talked to Urology and now he is scheduled for lithotripsy of his transplant kidney stone on July 16. In the meantime, he remains afebrile on intravenous Ertapenem. He denies any nausea or vomiting. PHYSICAL EXAMINATION: VITAL SIGNS: Temperature is 98.1 degrees Fahrenheit, heart rate is 66 per minute and respiratory rate is 18 per minute. Blood pressure is 119/67 mmHg and oxygen saturation is 95% on room air. HEENT: Head is atraumatic. NECK: Supple without JVD or thyroid enlargement. HEART: Regular with systolic murmur Grade 2/6 which is unchanged. LUNGS: Clear to auscultation. ABDOMEN: Soft and nontender. Bowel sounds are normal. EXTREMITIES: Without any cyanosis or clubbing. LABORATORY DATA: Todays labs shows a sodium of 141, potassium 3.8, CO2 30, BUN 15, creatinine 0.76, glucose 109, calcium 9.2. WBC count is 5.9, hemoglobin is 10.0 and hematocrit 32.5. His urine culture was negative yesterday. PROBLEMS: 1. 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 Patient has been treated multiple times with intravenous antibiotics. He has a kidney stone in his renal pelvis which needs to be removed and now he is scheduled for the procedure on July 16. In the meantime, we are going to try to keep him on antibiotics. I have discussed with Dr. Johns and I feel the patient can take Bactrim one tablet twice a day for two weeks and then once a day until after the procedure. We will monitor his renal function and PT/INR every week in the office. 2. Status post kidney transplant. The transplant kidney has been functioning very well with serum creatinine 0.7. I feel the patient can take Bactrim without any major problems. He will continue with hydration. 3. Recurrent kidney stones. Patient has recurrent stones in his transplant kidney. He is now scheduled for a lithotripsy on July 16. I think that would be an appropriate step and he is medically stable for that procedure. 4. Hypertension. Blood pressure is very well controlled on current medications which should be continued. 5. Atrial fibrillation and anticoagulation. Patient has been on chronic anticoagulation and his INR is 3.0. I have advised him to hold his coumadin over the weekend as he will start Bactrim. He will come to our office next week for a weekly PT/INR and renal profile. 6. Disposition: From a renal standpoint, the patient can be discharged to home today and follow-up in our office in the next week. VAIBHAV
--- NOTE | 2020-06-27 08:28 | IPN ---
INFECTIOUS DISEASE PROGRESS NOTE DATE: 06/20/2020 SUBJECTIVE: Mr. Kwon is doing well. He denies any complaints except for minimal dysuria and right lower quadrant pain, which have been improving. He has no nausea, vomiting or diarrhea. He has minimal right lower quadrant abdominal pain. He has no cough or shortness of breath. LABORATORY DATA: White count 5.9, hemoglobin 10, hematocrit 32.5, platelets 182,000, 50% neutrophils, 32% lymphocytes, 16% monocytes. Sodium 141, potassium 3.8, chloride 105, bicarb 30, BUN 15, creatinine 0.76, glucose 109, calcium 9.2. CRP 1.37. Blood cultures are no growth after 48 hours. Urine culture no growth. Urinalysis has too numerous to count white cells, 23 red cells. IMPRESSION: 1. Recurrent urinary tract infection and a transplanted kidney. Blood culture negative. Patient has had Enterobacter cloacae for the past five months with multiple admissions. It is sensitive to Bactrim. Patient has no allergies and therefore will be treated with Bactrim DS one tablet p.o. b.i.d. for ten days, followed by Bactrim one tablet daily until his stone extraction, which is scheduled on July 16. 2. Kidney stone in the transplanted kidney; probably causing these recurrent urinary tract infections, scheduled to be removed on July [address] Young. PLAN: Patient to be discharged home today on Bactrim DS one tablet p.o. b.i.d. for 10 days, followed by one tablet daily. His PT/INR and his creatinine will be monitored weekly by Dr. Alcantar. Case has been discussed with nephrology. VAIBHAV
== END 2020-06-20 13:50 | disposition home health service (06) | DRG 699 ==
LOC: M ED 11:01 → M ED INP 13:36 → ENRESERV 14:24 → M MS5PR 14:45
PROVIDERS: ADMIT Internal Medicine Nephrology; ATTEND Internal Medicine Nephrology
DX: T86.13 Kidney transplant infection (principal); I48.20 Chronic atrial fibrillation, unspecified; N12 Tubulo-interstitial nephritis, not specified as acute or chronic; N25.81 Secondary hyperparathyroidism of renal origin; I13.2 Hypertensive heart and chronic kidney disease with heart failure and with stage 5 chronic kidney disease, or end stage renal disease; N10 Acute pyelonephritis; Z79.01 Long term (current) use of anticoagulants; I25.10 Atherosclerotic heart disease of native coronary artery without angina pectoris; Z95.2 Presence of prosthetic heart valve; I35.0 Nonrheumatic aortic (valve) stenosis; D50.9 Iron deficiency anemia, unspecified; E83.42 Hypomagnesemia; K21.9 Gastro-esophageal reflux disease without esophagitis; M81.0 Age-related osteoporosis without current pathological fracture; K43.9 Ventral hernia without obstruction or gangrene; K40.90 Unilateral inguinal hernia, without obstruction or gangrene, not specified as recurrent; G62.9 Polyneuropathy, unspecified; E83.39 Other disorders of phosphorus metabolism; K59.00 Constipation, unspecified; M51.36 Other intervertebral disc degeneration, lumbar region; M54.2 Cervicalgia; Z79.899 Other long term (current) drug therapy; Z79.82 Long term (current) use of aspirin; Z88.5 Allergy status to narcotic agent; Z88.8 Allergy status to other drugs, medicaments and biological substances; Z88.1 Allergy status to other antibiotic agents; E87.6 Hypokalemia; I50.9 Heart failure, unspecified; Y83.0 Surgical operation with transplant of whole organ as the cause of abnormal reaction of the patient, or of later complication, without mention of misadventure at the time of the procedure

== ENCOUNTER → 2020-06-25 | Outpatient (REF) | payer MEDICARE ==
[~2020-06-25] MED LIST changes: +AMLO2.5T3 PO; +BACT800T5 PO; +BISA10SU PR
[2020-06-25 17:39] LABS: INR 0.92; PROTHROMBIN TIME 12.6 SECONDS (12.5-14.3)
== END ==
LOC: M LAB REF 16:48
PROVIDERS: ATTEND Nurse Practitioner Family
DX: Z79.01 Long term (current) use of anticoagulants (principal)

== ENCOUNTER → 2020-06-30 | Outpatient (CLI) | payer MEDICARE ==
[2020-06-30 14:46] LABS: INR 1.01; PROTHROMBIN TIME 13.5 SECONDS (12.5-14.3)
[2020-06-30 14:47] LABS: PARTIAL THROMBOPLASTIN TIME 32.8 SECONDS (24.2-38.5)
== END ==
LOC: M LAB 14:08
PROVIDERS: ATTEND Dentist Oral and Maxillofacial Surgery
DX: Z51.81 Encounter for therapeutic drug level monitoring (principal); Z79.01 Long term (current) use of anticoagulants

== ENCOUNTER → 2020-07-10 | Outpatient (REF) | payer MEDICARE ==
[2020-07-10 18:18] LABS: INR 1.64; PROTHROMBIN TIME 19.8 SECONDS (12.5-14.3)
== END ==
LOC: M LAB REF 17:03
PROVIDERS: ATTEND Nurse Practitioner Family
DX: Z79.01 Long term (current) use of anticoagulants (principal)

== ENCOUNTER → 2020-07-31 | Outpatient (REF) | payer MEDICARE ==
[2020-07-31 17:57] LABS: INR 1.02; PROTHROMBIN TIME 13.6 SECONDS (12.5-14.3)
== END ==
LOC: M LAB REF 16:49
PROVIDERS: ATTEND Nurse Practitioner Family
DX: Z79.01 Long term (current) use of anticoagulants (principal); Z79.899 Other long term (current) drug therapy; Z94.0 Kidney transplant status

== ENCOUNTER → 2020-09-04 | Outpatient (REF) | payer MEDICARE ==
[~2020-09-04] MED LIST changes: +ECOT81TA5 PO; +LABE100T4 PO; -LABE10TAB PO; +MAGN50TA PO; +RA M500C PO; +TAMS1CAP17 PO; +WARF4TAB52 PO; +ZOLP5TAB; +[UNRECOGNIZED DRUG - OTHER] PO
[2020-09-04 18:10] LABS: INR 1.01; PROTHROMBIN TIME 13.5 SECONDS (12.5-14.3)
== END ==
LOC: M LAB REF 16:57
PROVIDERS: ATTEND Nurse Practitioner Family
DX: Z94.0 Kidney transplant status (principal); Z79.01 Long term (current) use of anticoagulants

== ENCOUNTER → 2020-09-11 | Outpatient (CLI) | payer MEDICARE ==
[~2020-09-11] MED LIST changes: +FLAG500T PO; +LOVE1INJ SC
== END ==
LOC: M LABSMTC 09:56
PROVIDERS: ATTEND Anesthesiology
DX: Z20.828 Contact with and (suspected) exposure to other viral communicable diseases (principal)

== ENCOUNTER 2020-09-16 09:16 | Day surgery (SDC) | payer MEDICARE ==
[~2020-09-16] VITALS: Ht 175.3 cm; Wt 72.0 kg
[~2020-09-16 09:16] MED LIST changes: +ACETAMINOPHEN 1000MG 100ML IV BTL (OFIRMEV) (J0131 PER 10MG) As Ordered ONE; -FLAG500T PO; +KETOROLAC 60MG 2ML VIAL As Ordered ONE; +LIDOCAINE 2% 100MG/5ML SDV (FOR ANES.) As Ordered ONE; -LOVE1INJ SC; +LR 1,000 ML IV ONE; +MIDAZOLAM INJ 2MG/2ML VIAL (J2250 PER 1MG) As Ordered ONE; +ONDANSETRON 4MG/2ML VIAL As Ordered ONE; +ROCURONIUM BROMIDE 50 MG/5 ML VIAL As Ordered ONE; +SUGAMMADEX SODIUM 500 MG/5 ML VIAL (BRIDION) As Ordered ONE; +ceFAZolin SOD 2 GM in IV 1 EA IV ONE; +dexameTHASONE 4 MG/ML 1ML VIAL (J1100 PER 1MG) As Ordered ONE; +fentaNYL 100 MCG/2 ML INJECTION (J3010) As Ordered ONE; +propofoL 200 MG/20 ML VIAL As Ordered ONE
[2020-09-16 10:03] LABS: INR 0.88; PROTHROMBIN TIME 12.1 SECONDS (12.5-14.3)
[2020-09-16] MEDS ORDERED: LOVE1INJ SC (10:07)
[2020-09-16] MEDS ORDERED: BUPIVACAINE HCL 0.25% 30ML VIAL As Ordered ONE (12:32)
[2020-09-16] MEDS ORDERED: fentaNYL 100 MCG/2 ML INJECTION (J3010) As Ordered ONE ×4 (14:10→20:35)
[2020-09-16] MEDS ORDERED: ROCURONIUM BROMIDE 50 MG/5 ML VIAL As Ordered ONE ×2 (14:30→16:33)
[2020-09-16] MEDS ORDERED: ZOSYN 3.375GM VIAL (J2543) As Ordered ONE (15:34)
[2020-09-16] MEDS: fentaNYL 100 MCG/2 ML INJECTION (J3010) IV PRN ×7 (18:28→20:38)
[2020-09-16] MEDS: oxyCODONE 5MG TAB PO PRN ×2 (18:54→20:33)
[2020-09-16] MEDS ORDERED: ONDANSETRON 4MG/2ML VIAL IV PRN (19:00)
[2020-09-16] MEDS ORDERED: ACETAMINOPHEN TAB 650MG DOSE (2X325MG) PO PRN (19:00)
[2020-09-16] MEDS ORDERED: MEPERIDINE INJ 25 MG/ML VIAL (J2175) IV PRN (19:00)
[2020-09-16] MEDS ORDERED: CYCLOBENZAPRINE 10MG TABLET PO PRN (19:00)
[2020-09-16] MEDS ORDERED: hydrOXYzine 25 MG TAB PO PRN (19:00)
[2020-09-16] MEDS ORDERED: MORPHINE 2 MG/ML 1ML VIAL (J2270) IV PRN (19:00)
[2020-09-16] MEDS ORDERED: LR 1,000 ML IV SCH (19:00)
[2020-09-16] MEDS ORDERED: METOCLOPRAMIDE INJ 10MG/2ML VIAL (J2765 PER 1) IV PRN (19:00)
[2020-09-16 21:50] VITALS: BP 145/88
[2020-09-16 22:20] VITALS: BP 146/73
[2020-09-16] MEDS: PIPERACILLIN/TAZOBACTAM SOD 3.375 GM in D5W MINI-BAG PLUS 50 ML IV SCH (22:28)
[2020-09-16] MEDS: LR 1,000 ML IV SCH (22:28)
[2020-09-16 22:50] VITALS: BP 138/74
[2020-09-16 23:50] VITALS: BP 152/70
[2020-09-17] VITALS (8 sets, daily range): BP systolic 125–138; BP diastolic 68–85
[2020-09-17] MEDS: LR 1,000 ML IV SCH (03:50)
[2020-09-17] MEDS: PIPERACILLIN/TAZOBACTAM SOD 3.375 GM in D5W MINI-BAG PLUS 50 ML IV SCH ×2 (03:51→09:16)
[2020-09-17 06:46] LABS: BASO % 0.1 % (0.0-1.0); HEMATOCRIT 38.1 % (42.0-52.0); HEMOGLOBIN 11.7 g/dl (13.5-17.5); LYMPH # 1.8 10^3/uL (1.5-5.0); LYMPH % 16.9 % (24.0-44.0); MEAN CORPUSCULAR HEMOGLOBIN 28.3 pg (27.0-33.0); MEAN CORPUSCULAR HGB CONC 30.7 g/dl (32.0-36.5); MEAN CORPUSCULAR VOLUME 92.3 fl (80.0-96.0); MONO # 1.3 10^3/uL (0.0-0.8); MONO % 12.2 % (0.0-5.0); NEUTROPHILS # 7.6 10^3/uL (1.5-8.5); NEUTROPHILS % 70.5 % (36.0-66.0); PLATELET COUNT, AUTOMATED 171 10^3/uL (150-450); RED BLOOD COUNT 4.13 10^6/uL (4.30-6.10); WHITE BLOOD COUNT 10.8 10^3/uL (4.0-10.0)
[2020-09-17 07:02] LABS: BLOOD UREA NITROGEN 17 MG/DL (7-18); CALCIUM LEVEL 9.1 MG/DL (8.8-10.2); CARBON DIOXIDE LEVEL 28 MEQ/L (21-32); CHLORIDE LEVEL 104 MEQ/L (98-107); CREATININE FOR GFR 0.82 MG/DL (0.70-1.30); GLOMERULAR FILTRATION RATE > 60.0 (>42); GLUCOSE, FASTING 148 MG/DL (70-100); POTASSIUM SERUM 4.4 MEQ/L (3.5-5.1); SODIUM LEVEL 139 MEQ/L (136-145)
[2020-09-17] MEDS ORDERED: DIGOXIN 0.125 MG TAB PO SCH (09:00)
[2020-09-17] MEDS ORDERED: azaTHIOprine 50 MG TAB (J7500) PO SCH (09:00)
[2020-09-17] MEDS ORDERED: TORSEMIDE 20 MG TAB PO SCH (09:00)
[2020-09-17] MEDS ORDERED: DULoxetine 30 MG CAP (CYMBALTA) PO SCH (09:00)
[2020-09-17] MEDS ORDERED: predniSONE 5 MG TAB PO SCH (09:00)
[2020-09-17] MEDS ORDERED: aMILoride 5 MG TAB PO SCH (09:00)
[2020-09-17] MEDS: oxyCODONE 5MG TAB PO PRN ×2 (09:18→16:22)
[2020-09-17] MEDS: CEFDINIR 300 MG CAP (OMNICEF) PO SCH ×2 (13:48→20:10)
[2020-09-17] MEDS: metroNIDAZOLE (FLAGYL) 500MG TABLET PO SCH ×2 (13:48→20:10)
[2020-09-17] MEDS ORDERED: CEFD300CAP PO (17:13)
[2020-09-17] MEDS ORDERED: FLAG500T PO (17:13)
[2020-09-17] MEDS ORDERED: FLUBLOK(EGG FREE)(QUAD)INFLUENZA VACC 0.5ML SYRINGE 18YRS & OLDER IM ONE (19:30)
[2020-09-17] MEDS ORDERED: MAGNESIUM OXIDE 400 MG TAB (MAG-OX) PO SCH (21:00)
[2020-09-17] MEDS ORDERED: K-PHOS NEUTRAL 250MG TABLET (SOD.PHOSPHATE/POT.PHOSPHATE) PO SCH (21:00)
--- NOTE | 2020-09-17 21:10 | CR ---
CONSULTATION DATE: 09/17/2020 REQUESTING PHYSICIAN: Yosef Gamble M.D. CONSULTING PHYSICIAN: Lucrecia Caballero M.D. REASON FOR CONSULTATION: Management of renal transplant, status immunosuppression, and antibiotics in this patient with a history of multiple medication allergies. CHIEF COMPLAINT: The patient was admitted overnight after left inguinal hernia surgery. HISTORY OF PRESENT ILLNESS: Mr. Chato Kwon is a 75-year-old man with a past medical history of end-stage renal disease status post kidney transplant in the right lower quadrant, history of frequent recurrent kidney stones, and pyelonephritis in the past requiring percutaneous nephrostomy in the renal allograft that has been removed now. The patient came to the outpatient surgery yesterday to undergo robotic-assisted left-sided hernia repair. Operative notes are not available; however, I was told by the surgical team that during the procedure, there was a jason the patient's intestine and because of that, the procedure had to be turned to open hernia repair, and the patient was kept overnight for observation and IV antibiotics to prevent peritonitis in this patient who is otherwise immunocompromised. I saw and evaluated the patient today morning at the bedside. He was sitting up in the bed. He reports mild abdominal pain at the surgical site. Otherwise, he denies any active complaints and he actually wants to go home. He was started on IV Zosyn last night after the surgery. PAST MEDICAL HISTORY: 1. End-stage renal disease with kidney transplant status now. 2. Recurrent kidney stones in the past. 3. Recurrent pyelonephritis in the past. 4. Degenerative arthritis. 5. Severe osteoporosis. 6. Coronary artery disease status post angioplasty and stents. 7. Atrial fibrillation. 8. Degenerative disc disease. 9. Spine surgeries. 10. Secondary hyperparathyroidism. PAST SURGICAL HISTORY: 1. AV fistula surgery and graft surgeries in the past. 2. Kidney transplant status. 3. Bilateral [place] kidney nephrectomies. 4. Hernia surgeries in the past. 5. Nephrostomy tube placement in the transplanted kidney that has been removed. 6. Laparoscopic-assisted left-sided hernia surgery that had to be converted to open hernia repair. ALLERGIES: The patient has multiple medication allergies listed, but most of these allergies are some intolerance or side effects of the drugs. Allergies include QUINOLONES, AMOXICILLIN, CEFUROXIME, CIPROFLOXACIN, CODEINE, DOXYCYCLINE, LEVAQUIN, LORAZEPAM, OXYBUTYNIN, PREGABALIN, TAMSULOSIN, TEZANIDINE. NOTE: The patient received cephalosporin yesterday and he is receiving Zosyn now and so far, he has had no side effects. FAMILY HISTORY: No significant family history of end-stage renal disease requiring hemodialysis. SOCIAL HISTORY: The patient lives at home. He denies any smoking, illicit drug abuse, or alcohol abuse. REVIEW OF SYSTEMS: Constitutional: He denies any fevers or chills. Eyes: He denies any blurry vision or double vision. ENT: Denies any dysphagia or odynophagia. Cardiovascular: Denies any chest pain or palpitations. Respiratory: Denies any shortness of breath. GI: He reports mild abdominal pain. Genitourinary: He denies any dysuria or hematuria. Musculoskeletal: He reports muscle aches and pains and severe osteoporosis and spinal pain. Skin: Denies any rashes or ulcers. Psych: Denies any depression or anxiety. REHABILITATION PROGRAM COORDINATOR: Denies any strokes or seizures. Endocrine: He denies any polyphagia or polyuria. Hematologic/Oncological: He denies any bleeding or bruising. All other review of system is negative. PHYSICAL EXAMINATION: GENERAL: The patient is awake, alert, and oriented x3; sitting up in the bed. VITAL SIGNS: Temperature is 97.8 degrees Fahrenheit. Blood pressure 125/74, pulse 98, respiratory rate 18, saturating 97% on room air. INTAKE AND OUTPUT: Urine output reported as 1.6 liters so far. HEAD AND NECK: Pupils equally round and reactive to light. Mucous membranes are moist. Neck is supple. He is wearing a soft collar on the neck. Old surgical scar on the back of the neck is noted. CARDIOVASCULAR: S1, S2. Regular rate. 1+ edema of the bilateral lower extremities. RESPIRATORY: Chest is clear to auscultation bilaterally. Bilateral equal air entry. No rales or rhonchi. ABDOMEN: Soft. Recent surgical dressings and the abdomen is appropriately tender at the left-sided hernia surgery repair. GENITOURINARY: Bladder is not palpable. The right lower quadrant renal allograft is nontender. MUSCULOSKELETAL: No clubbing or cyanosis. 1+ edema of the extremities. REHABILITATION PROGRAM COORDINATOR: No focal deficit. The patient is able to get up with the help of a walker. LABORATORY REVIEW: CBC showed a WBC of 10.8, hemoglobin 11.7, platelets 171,000. BMP showed sodium 139, potassium 5.4, chloride 104, bicarb 28, BUN 17, creatinine 0.82, glucose 148, calcium 9.1. CURRENT INPATIENT MEDICATIONS: The patient's medications were all reviewed by myself. He is currently getting lactated ringer at 75 mL/hour. He is on Zosyn 3.35 g IV every six hours, Tylenol p.r.n., amiloride 5 mg p.o. daily, Imuran 100 mg p.o. daily, Flexeril 10 mg p.o. twice a day, digoxin 0.125 mg p.o. daily, Duloxetine 30 mg p.o. daily, hydroxyzine p.r.n., morphine p.r.n. for pain, oxycodone 5 mg p.o. every six hours for mild pain, prednisone 5 mg p.o. daily, and torsemide 20 mg p.o. daily. ASSESSMENT AND PLAN: 1. Status post hernia repair and accidental jason to the intestine. The patient is being kept under observation. He is getting Zosyn at this time; however, we need to come up with a medicine that he can take at home. The patient tolerated IV cefazolin yesterday and he is tolerating the IV Zosyn now. So I am going to start the patient on cefdinir 300 mg p.o. twice a day and see if he tolerates that. We can discharge him home on a combination of cefdinir and Flagyl to prevent intraabdominal infection. He is admitted under the surgical service and wound care is as per the surgical team. 2. Renal allograft status. Renal function is stable. Continue current dose of azathioprine and prednisone and also restart the patient's home dose of sirolimus. 3. Lower extremity edema. Continue current dose of torsemide. IV fluids are going to be stopped now. 4. Chronic hypomagnesemia. I am going to restart the patient on his home dose of magnesium. Continue the current dose of amiloride for prevention of renal mag wasting. 5. Hypertension. Continue current dose of amlodipine and IV fluids are being stopped. 6. Atrial fibrillation. Heart rate is controlled with digoxin. He is not on any anticoagulation at this time. He recently had surgery yesterday. Thank you for involving me in the care of this patient. I should be able to follow the patient along with you tomorrow morning.
[2020-09-18] MEDS ORDERED: ENTER DRUG NAME HERE (PATIENT'S OWN MED) PO SCH (09:00)
--- NOTE | 2020-09-20 23:38 | RO ---
OPERATIVE NOTE DATE OF OPERATION: 09/16/2020 PREOPERATIVE DIAGNOSIS: Large left inguinal hernia. POSTOPERATIVE DIAGNOSIS: 1. Extensive intraabdominal adhesions secondary to multiple prior procedures with abdominal wall mesh. 2. Incarcerated colon containing left inguinal hernia. 3. Complication of perforation of the sigmoid colon. PROCEDURES PERFORMED: 1. Laparoscopy and robotic assisted laparoscopy with extensive lysis of adhesions with sigmoid colotomy, repair of colotomy and irrigation of the abdomen. 2. Open left inguinal herniorrhaphy with mesh. SURGEON: Yosef Gamble MD ANESTHESIA: General. INDICATIONS FOR THE PROCEDURE: The patient has had a large left inguinal hernia for quite some time. It clearly contains portions of the bowel and has increased in size over the last 6 months and has become more symptomatic. He has had multiple prior surgical procedures including a repair of a right inguinal hernia, removal of his [place] kidneys with a renal transplant and repair of several abdominal incisional hernias with mesh. He is now for robotic assisted repair of his large left inguinal hernia. OPERATIVE PROCEDURE: The patient was brought to the operating room and placed on the table in a supine position. He was placed under general endotracheal anesthesia. The patient's abdomen was prepped and draped in a sterile fashion. He had multiple scars noted over the abdominal wall. An initial incision was made high in the left upper quadrant to try to avoid areas of prior surgery. A Veress needle was inserted; and after a positive hanging drop test, a 5 mm port was placed over a 5 mm scope and advanced through the abdominal wall without difficulty. Initial examination showed no evidence of trocar injury. The patient was noted to have extensive adhesions to the anterior abdominal wall. The edge of a piece of a mesh was noted in the upper mid abdomen. There were extensive adhesions all along the midline of the abdomen, which precluded visualization of much of the abdominal wall. A second port was placed on the left side where there was open space. Then using cauterizing scissors, I began to take down some of the adhesions working from the left towards the right. It was possible to get across the area of the epigastrium to the midline and then an 8 mm port was placed approximately at the midline in the supraumbilical area. There remained extensive adhesions to the anterior abdominal wall which extended down into the pelvis. In several areas, there were loops of bowel that were adherent directly to the mesh on the anterior abdominal wall. Though there appeared to be a piece of more fenestrated mesh superiorly, there was clearly a piece of what looked like [place] DualMesh patch lower down along the abdominal wall. I was ultimately able to place a third 8 mm port to the right side of the abdomen. Further dissection was required to create a window through the veil of adhesions down the midline of the abdomen to allow a grasper to reach across from the right side down to the left inguinal hernia. Once the adhesions had been adequately dissected, the patient was tilted into a 15 degree head down Trendelenburg position. The patient cart of the [employer] robot was brought into position and the endoscope port was docked. Targeting took place in the left side of the pelvis. The other arms were then docked to the remaining port. A fenestrated bipolar and a pair of cauterizing scissors were then inserted and directed down in the left side of the pelvis. I then moved to the control console to begin the procedure. Inspection revealed a large hernia in the left inguinal area that was clearly indirect. There were some adhesions of the bowel in this area to the anterior abdominal wall. Several loops of bowel appeared somewhat thickened and scarred. Traction was applied to the bowel and there was a significant portion of bowel that could be reduced from the hernia. Additional lysis of adhesions was required. As I was trying to reduce the remaining bowel from within the hernia, it was noted that there was a small perforation in the anterolateral aspect of the sigmoid colon. There was a small amount of stool noted on the tip of the bipolar grasper. This was suctioned and irrigated. The perforation was noted to be perhaps 6 to 7 mm in size. There was no free spillage of material. The sigmoid colon remained adherent in its more distal portion into the hernia. This portion was not visible readily through the hernial defect. I did not feel comfortable considering placement of mesh after this perforation of the colon. The colonic perforation was closed in two layers with 3-0 Vicryl sutures. The area was copiously irrigated and the irrigation was then removed. I felt it was best to abandon the laparoscopic approach to the repair and to close his incisions and proceed with an open repair of his hernia. The robotic arms were then all un-docked from the trocars and the patient cart was withdrawn. The patient was returned to a flat position. The abdomen was deflated and the trocars were removed. The incisions were all closed with buried 4-0 Vicryl sutures. The patient's abdomen was then re-prepped extending further down into the groin to the genitalia. He was redraped. An approximately 10 cm oblique skin incision was made in the left groin. This was deepened through the subcutaneous tissues to the external oblique. This was opened in the direction of its fibers into the external ring. The spermatic cord was thin, but there was a large hernial sac protruding. With care not to penetrate the sac, this was freed from surrounding structures and then reduced beneath the inguinal floor. A Bassini repair of the inguinal floor was then performed with interrupted simple sutures of 2-0 Ethibond. Sutures were placed medially, but there were several sutures also placed lateral to the internal ring due to the significant dilation of the ring. This appeared to give a good reconstruction of the inguinal floor. A 6 x 11 cm piece of Ultrapro mesh was selected. This was reference code UMS3 and lot number [id number]. This was trimmed slightly and split to fit about the spermatic cord. This was sutured at the pubic tubercle with a 3-0 Prolene which was carried along the inferior border of the mesh suturing this to the edge of the inguinal ligament. The medial and superior portion of the mesh was tacked to the underlying tissue with interrupted simple sutures of 3-0 Vicryl. The tails of the mesh were overlapped and sutured together with 3-0 Vicryl. The external oblique was then closed with a running suture of 1-0 Vicryl. 0.25% Marcaine was infiltrated into the tissues around the incision. The subcutaneous tissues were closed with Chromic and the skin edges with a running subcuticular 4-0 Vicryl and Steri-Strips. Light dressings were applied. I would note that at the point where the colonic perforation was noted, the patient received a dose of piperacillin tazobactam. He had been given a dose of cefotetan at the start of the procedure. He was awakened in the operating room, extubated and moved to the recovery room in stable condition. VAIBHAV
== END 2020-09-17 20:47 | disposition home or self-care (01) ==
LOC: M SDC 09:16 → M MSPAV 21:45 → M SDC 09-17 20:47
PROVIDERS: ATTEND Surgery
DX: K40.90 Unilateral inguinal hernia, without obstruction or gangrene, not specified as recurrent (principal); K66.0 Peritoneal adhesions (postprocedural) (postinfection); I10 Essential (primary) hypertension; D64.9 Anemia, unspecified; E78.00 Pure hypercholesterolemia, unspecified; E21.3 Hyperparathyroidism, unspecified; F32.9 Major depressive disorder, single episode, unspecified; F41.9 Anxiety disorder, unspecified; I25.10 Atherosclerotic heart disease of native coronary artery without angina pectoris; I35.0 Nonrheumatic aortic (valve) stenosis; I48.20 Chronic atrial fibrillation, unspecified; K21.9 Gastro-esophageal reflux disease without esophagitis; K44.9 Diaphragmatic hernia without obstruction or gangrene; K59.00 Constipation, unspecified; M12.9 Arthropathy, unspecified; M54.9 Dorsalgia, unspecified; M81.0 Age-related osteoporosis without current pathological fracture; R51.9 Headache, unspecified; R60.9 Edema, unspecified; R94.31 Abnormal electrocardiogram [ECG] [EKG]; Z53.31 Laparoscopic surgical procedure converted to open procedure; Z79.01 Long term (current) use of anticoagulants; Z79.899 Other long term (current) drug therapy; Z85.828 Personal history of other malignant neoplasm of skin; Z86.14 Personal history of Methicillin resistant Staphylococcus aureus infection; Z87.442 Personal history of urinary calculi; Z87.891 Personal history of nicotine dependence; Z88.1 Allergy status to other antibiotic agents; Z88.8 Allergy status to other drugs, medicaments and biological substances; Z94.0 Kidney transplant status; Z95.5 Presence of coronary angioplasty implant and graft
CPT/HCPCS: 36415; 44180; 49505; 80048; 84132; 85025; 85610; 90471; 90682; 96365; 96366; C1781; J0131; J0690; J1100; J2250; J2270; J2405; J2543; J3010; S2900

== ENCOUNTER → 2020-10-06 | Outpatient (REF) | payer MEDICARE ==
[~2020-10-06] MED LIST changes: -ACETAMINOPHEN 1000MG 100ML IV BTL (OFIRMEV) (J0131 PER 10MG) As Ordered ONE; +FLAG500T PO; +GABA-282 PO; -GABA-843 PO; -KETOROLAC 60MG 2ML VIAL As Ordered ONE; -LIDOCAINE 2% 100MG/5ML SDV (FOR ANES.) As Ordered ONE; +LOVE1INJ SC; -LR 1,000 ML IV ONE; -MIDAZOLAM INJ 2MG/2ML VIAL (J2250 PER 1MG) As Ordered ONE; -ONDANSETRON 4MG/2ML VIAL As Ordered ONE; -ROCURONIUM BROMIDE 50 MG/5 ML VIAL As Ordered ONE; -SUGAMMADEX SODIUM 500 MG/5 ML VIAL (BRIDION) As Ordered ONE; -ceFAZolin SOD 2 GM in IV 1 EA IV ONE; -dexameTHASONE 4 MG/ML 1ML VIAL (J1100 PER 1MG) As Ordered ONE; -fentaNYL 100 MCG/2 ML INJECTION (J3010) As Ordered ONE; -propofoL 200 MG/20 ML VIAL As Ordered ONE
[2020-10-07 18:00] LABS: INR 1.04; PROTHROMBIN TIME 13.8 SECONDS (12.5-14.3)
== END ==
LOC: M LAB REF 17:23
PROVIDERS: ATTEND Nurse Practitioner Family
DX: Z79.01 Long term (current) use of anticoagulants (principal)

== ENCOUNTER 2020-11-03 07:56 | Emergency (ER) | payer MEDICARE ==
[~2020-11-03] VITALS: Ht 177.8 cm; Wt 76.3 kg
[~2020-11-03 07:56] MED LIST changes: -MAG400TA PO; +MAGN400T35 PO
[2020-11-03] MEDS ORDERED: WARF-58 PO (08:21)
--- NOTE | 2020-11-03 08:26 | REP ---
INDICATION: CHEST PAIN. COMPARISON: 29 April 2020. TECHNIQUE: Portable upright AP chest radiograph. FINDINGS: The lungs are well inflated and clear. Heart is enlarged unchanged. There is fusion hardware in the midthoracic spine and at the thoracolumbar junction as before. Diffuse osteopenia is noted. Pulmonary vasculature is not increased. The pleural angles are sharp.. Fusion hardware is also noted in the cervical spine. IMPRESSION: Cardiomegaly again noted. Fusion hardware in the spine. Otherwise no active disease.. <Electronically signed by Rene Warner > 11/03/20 [id number]
[2020-11-03 09:08] LABS: BASO % 0.2 % (0.0-1.0); EOS # 0.1 10^3/uL (0.0-0.5); EOS % 0.5 % (0.0-3.0); HEMATOCRIT 40.8 % (42.0-52.0); HEMOGLOBIN 13.1 g/dl (13.5-17.5); LYMPH # 1.9 10^3/uL (1.5-5.0); LYMPH % 18.7 % (24.0-44.0); MEAN CORPUSCULAR HEMOGLOBIN 29.7 pg (27.0-33.0); MEAN CORPUSCULAR HGB CONC 32.1 g/dl (32.0-36.5); MEAN CORPUSCULAR VOLUME 92.5 fl (80.0-96.0); MONO % 9.2 % (0.0-5.0); NEUTROPHILS # 7.3 10^3/uL (1.5-8.5); NEUTROPHILS % 70.5 % (36.0-66.0); PLATELET COUNT, AUTOMATED 220 10^3/uL (150-450); RED BLOOD COUNT 4.41 10^6/uL (4.30-6.10)
[2020-11-03 09:14] LABS: WHITE BLOOD COUNT 10.3 10^3/uL (4.0-10.0)
[2020-11-03 09:25] LABS: INR 1.13; PROTHROMBIN TIME 14.8 SECONDS (12.5-14.3)
[2020-11-03 09:26] LABS: PARTIAL THROMBOPLASTIN TIME 34.7 SECONDS (24.2-38.5)
[2020-11-03 09:33] LABS: C REACTIVE PROTEIN QUANTITATIV 0.53 MG/DL (0.00-0.30)
[2020-11-03 09:44] LABS: ALBUMIN 3.8 GM/DL (3.2-5.2); ALT/SGPT 18 U/L (12-78); BILIRUBIN,DIRECT < 0.1 MG/DL (0.0-0.2); BILIRUBIN,TOTAL 0.4 MG/DL (0.2-1.0); BLOOD UREA NITROGEN 16 MG/DL (7-18); CALCIUM LEVEL 10.2 MG/DL (8.8-10.2); CARBON DIOXIDE LEVEL 28 MEQ/L (21-32); CHLORIDE LEVEL 101 MEQ/L (98-107); CK-MB VALUE MASS 2.2 NG/ML (<3.6); CPK CREATINE PHOSPHOKINASE 98 U/L (39-308); FREE T4 1.01 NG/DL (0.76-1.46); GLOMERULAR FILTRATION RATE > 60.0 (>42); GLUCOSE, FASTING 132 MG/DL (70-100); LIPASE 37 U/L (73-393); MB/CK RELATIVE INDEX 2.24 (< OR =4); POTASSIUM SERUM 3.8 MEQ/L (3.5-5.1); SODIUM LEVEL 139 MEQ/L (136-145); TOTAL PROTEIN 7.5 GM/DL (6.4-8.2); TROPONIN I < 0.02 NG/ML (< 0.10)
[2020-11-03 10:02] LABS: ERYTHROCYTE SEDIMENTATION RATE 45 mm/hr (0-20)
[2020-11-03] MEDS ORDERED: diazePAM 10MG/2ML SYRINGE (J3360 PER 5MG) IV ONE (11:15)
[2020-11-03] MEDS ORDERED: KETOROLAC 30 MG/ML 1ML VIAL IV ONE (11:15)
[2020-11-03] MEDS ORDERED: GABAPENTIN 300 MG CAP PO ONE (13:45)
[2020-11-03] MEDS ORDERED: dexameTHASONE 20MG/5ML VIAL (J1100 PER 1MG) IV ONE (13:45)
[2020-11-03] MEDS ORDERED: PERCOCET 5MG/325MG TAB PO ONE (13:45)
[2020-11-03] MEDS ORDERED: PRED10TA2 PO (13:58)
[2020-11-03 14:11] VITALS: BP 150/82
--- NOTE | 2020-11-04 08:46 | ECGEPIP ---
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
== END 2020-11-03 14:32 | disposition home or self-care (01) ==
LOC: M ED 07:56
DX: M48.00 Spinal stenosis, site unspecified (principal); I48.91 Unspecified atrial fibrillation; I25.10 Atherosclerotic heart disease of native coronary artery without angina pectoris; M85.9 Disorder of bone density and structure, unspecified; Z94.0 Kidney transplant status; Z79.899 Other long term (current) drug therapy; Z79.82 Long term (current) use of aspirin; Z79.01 Long term (current) use of anticoagulants; Z88.0 Allergy status to penicillin; Z88.1 Allergy status to other antibiotic agents; Z88.5 Allergy status to narcotic agent; Z88.8 Allergy status to other drugs, medicaments and biological substances
CPT/HCPCS: 71045; 80047; 80048; 80076; 81001; 82550; 82553; 83690; 83880; 84439; 84443; 84484; 85025; 85610; 85652; 85730; 86140; 93005; 93041; 94760; 96374; 96375; 99285; J1100; J1885; J3360

== ENCOUNTER → 2020-11-12 | Outpatient (CLI) | payer MEDICARE ==
[~2020-11-12] MED LIST changes: +PRED10TA2 PO
--- NOTE | 2020-11-12 14:44 | REP ---
INDICATION: HYPERPARATHYROIDISM. COMPARISON: None. TECHNIQUE: 27.2 mCi of technetium 99 M sestamibi is injected and 15 minutes and 3 hour delayed images are acquired of the neck and chest region. A SPECT acquisition is acquired and says axial, sagittal and coronal multiplanar re-formation images are generated. FINDINGS: Initial 15 minutes images demonstrate expected bilateral salivary and thyroid gland uptake. No abnormal uptake is seen. On delayed 3 hour images there is washout from the thyroid. No retained focal nodular uptake is seen in the neck or chest to suggest parathyroid adenoma on planar images. SPECT images and reconstructed images show no additional abnormality. IMPRESSION: Negative parathyroid nuclear scintigraphy. <Electronically signed by Rene Warner > 11/12/20 [id number]
== END ==
LOC: M RAD 09:30
PROVIDERS: ATTEND Nurse Practitioner Family
DX: E21.3 Hyperparathyroidism, unspecified (principal)
CPT/HCPCS: 78803; A9500

== ENCOUNTER → 2020-11-18 | Outpatient (REF) | payer MEDICARE ==
[2020-11-18 17:30] LABS: INR 1.22; PROTHROMBIN TIME 15.7 SECONDS (12.5-14.3)
== END ==
LOC: M LAB REF 16:41
PROVIDERS: ATTEND Nurse Practitioner Family
DX: Z79.01 Long term (current) use of anticoagulants (principal)

== ENCOUNTER → 2020-12-03 | Outpatient (REF) | payer MEDICARE ==
[2020-12-03 18:10] LABS: INR 1.4; PROTHROMBIN TIME 17.5 SECONDS (12.5-14.3)
== END ==
LOC: M LAB REF 16:53
PROVIDERS: ATTEND Nurse Practitioner Family
DX: I50.9 Heart failure, unspecified (principal); Z79.01 Long term (current) use of anticoagulants

== ENCOUNTER → 2020-12-03 | Outpatient (CLI) | payer MEDICARE ==
--- NOTE | 2020-12-03 12:50 | REP ---
INDICATION: ORTHOPNEA COMPARISON: 11/03/2020 TECHNIQUE: PA and lateral. FINDINGS: The mediastinum and cardiac silhouette are normal. The lung little are clear and without acute consolidation, effusion, or pneumothorax. Cervical fixation and Costa rods again noted. IMPRESSION: No acute cardiopulmonary process. <Electronically signed by [employer] Christianson > 12/03/20 [id number]
== END ==
LOC: M RAD 12:28
PROVIDERS: ATTEND Nurse Practitioner Family
DX: R06.01 Orthopnea (principal)

== ENCOUNTER → 2020-12-17 | Outpatient (REF) | payer MEDICARE ==
[2020-12-17 18:27] LABS: INR 2.26; PROTHROMBIN TIME 25.5 SECONDS (12.5-14.3)
== END ==
LOC: M LAB REF 17:27
PROVIDERS: ATTEND Nurse Practitioner Family
DX: Z51.81 Encounter for therapeutic drug level monitoring (principal); Z79.01 Long term (current) use of anticoagulants

== ENCOUNTER → 2020-12-22 | Outpatient (CLI) | payer MEDICARE ==
--- NOTE | 2020-12-22 10:11 | REP ---
INDICATION: PVD. COMPARISON: None. TECHNIQUE: Bilateral lower extremity arterial Doppler ultrasound. FINDINGS: Noncompressible vessels preclude ankle brachial index determine a ramos bilaterally. There is severe plaquing with calcification diffusely in the lower extremity arteries bilaterally. In the right leg there is a 3-1 velocity ratio stenosis in the profundal femoral artery. The posterior tibial artery is occluded in the right calf. In the left leg there is evidence of a 2.2-1 stenosis in the proximal superficial femoral artery. Monophasic waveforms are noted in the tibial-peroneal trunk and anterior and posterior tibial arteries on the left. Monophasic arterial waveforms are noted in the right leg in the anterior tibial artery. 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 Extensive plaquing. Stenoses in the right profundal and the left proximal SFA. <Electronically signed by Rene Warner > 12/22/20 [id number]
== END ==
LOC: M RAD 07:34
PROVIDERS: ATTEND Podiatrist Foot & Ankle Surgery
DX: I70.213 Atherosclerosis of native arteries of extremities with intermittent claudication, bilateral legs (principal); I70.92 Chronic total occlusion of artery of the extremities

== ENCOUNTER 2021-01-07 10:37 | Emergency (ER) | payer MEDICARE ==
[~2021-01-07] VITALS: Ht 177.8 cm; Wt 75.4 kg
[2021-01-07] MEDS ORDERED: POTA1TAB23 PO (11:50)
--- NOTE | 2021-01-07 12:12 | REP ---
INDICATION: leg swelling. COMPARISON: Multiple the latest 12/03/2020 TECHNIQUE: Single PA FINDINGS: There is cardiomegaly status quo. The lung little are clear and stable. No acute patchy parenchymal opacities or pleural effusions have developed. The pleural angles are again seen to be sharp. There is no change in the osseous structures. Spinal fixators are again seen. IMPRESSION: There is no evidence of acute cardiopulmonary disease. Findings as described above. <Electronically signed by Clint Bhatt > 01/07/21 [id number]
[2021-01-07 14:19] LABS: BASO % 0.3 % (0.0-1.0); EOS % 0.3 % (0.0-3.0); HEMATOCRIT 41.7 % (42.0-52.0); HEMOGLOBIN 13.4 g/dl (13.5-17.5); LYMPH # 1.9 10^3/uL (1.5-5.0); LYMPH % 20.8 % (24.0-44.0); MEAN CORPUSCULAR HGB CONC 32.1 g/dl (32.0-36.5); MEAN CORPUSCULAR VOLUME 93.5 fl (80.0-96.0); MONO % 10.6 % (2.0-8.0); NEUTROPHILS % 67.2 % (36.0-66.0); PLATELET COUNT, AUTOMATED 226 10^3/uL (150-450); RED BLOOD COUNT 4.46 10^6/uL (4.30-6.10); WHITE BLOOD COUNT 8.9 10^3/uL (4.0-10.0)
[2021-01-07 14:29] LABS: INR 2.14; PROTHROMBIN TIME 24.4 SECONDS (12.5-14.3)
[2021-01-07 14:30] LABS: PARTIAL THROMBOPLASTIN TIME 46.6 SECONDS (24.2-38.5)
[2021-01-07 14:57] LABS: ERYTHROCYTE SEDIMENTATION RATE 58 mm/hr (0-20)
[2021-01-07 14:58] LABS: ALBUMIN 3.4 GM/DL (3.2-5.2); ALT/SGPT 18 U/L (12-78); BILIRUBIN,DIRECT 0.2 MG/DL (0.0-0.2); BILIRUBIN,TOTAL 0.5 MG/DL (0.2-1.0); BLOOD UREA NITROGEN 15 MG/DL (7-18); CALCIUM LEVEL 10.4 MG/DL (8.8-10.2); CARBON DIOXIDE LEVEL 30 MEQ/L (21-32); CHLORIDE LEVEL 100 MEQ/L (98-107); CREATININE FOR GFR 0.83 MG/DL (0.70-1.30); DIGOXIN LEVEL 1.1 NG/ML (0.5-2.0); GLOMERULAR FILTRATION RATE > 60.0 (>42); GLUCOSE, FASTING 135 MG/DL (70-100); MAGNESIUM LEVEL 2.2 MG/DL (1.8-2.4); POTASSIUM SERUM 3.9 MEQ/L (3.5-5.1); SODIUM LEVEL 136 MEQ/L (136-145); TOTAL PROTEIN 7.3 GM/DL (6.4-8.2)
[2021-01-07] MEDS ORDERED: DOXY100C37 PO (15:26)
[2021-01-07 15:39] VITALS: BP 174/97
== END 2021-01-07 15:45 | disposition home or self-care (01) ==
LOC: M ED 10:37 → EEVIPCON 10:37 → M ED 15:45
DX: L03.116 Cellulitis of left lower limb (principal); K21.9 Gastro-esophageal reflux disease without esophagitis; N18.9 Chronic kidney disease, unspecified; I11.0 Hypertensive heart disease with heart failure; I50.9 Heart failure, unspecified; Z79.01 Long term (current) use of anticoagulants; Z79.82 Long term (current) use of aspirin; Z79.891 Long term (current) use of opiate analgesic; Z79.899 Other long term (current) drug therapy; Z87.891 Personal history of nicotine dependence; Z88.6 Allergy status to analgesic agent; Z88.1 Allergy status to other antibiotic agents; Z88.8 Allergy status to other drugs, medicaments and biological substances

== ENCOUNTER → 2021-01-09 | Outpatient (REF) | payer MEDICARE ==
[~2021-01-09] MED LIST changes: +DOXY100C37 PO; +POTA1TAB23 PO
== END ==
LOC: M LAB REF 16:38
PROVIDERS: ATTEND Podiatrist Foot & Ankle Surgery
DX: L03.116 Cellulitis of left lower limb (principal)

== ENCOUNTER → 2021-01-23 | Outpatient (REF) | payer MEDICARE ==
[~2021-01-23] MED LIST changes: +OXYC1TAB15 PO; +POTA10TA16 PO
[2021-01-23 19:48] LABS: INR 2.9
== END ==
LOC: M LAB REF 16:56
PROVIDERS: ATTEND Internal Medicine Nephrology
DX: Z79.01 Long term (current) use of anticoagulants (principal)

== ENCOUNTER 2021-01-27 13:06 | Emergency (ER) | payer MEDICARE ==
[~2021-01-27] VITALS: Ht 172.7 cm; Wt 77.3 kg
--- NOTE | 2021-01-27 15:07 | REP ---
INDICATION: fall, trauma. COMPARISON: 10/03/2017. TECHNIQUE: Seven views cervical spine including flexion and extension in oblique views. FINDINGS: The patient has had prior fusion posteriorly of C2 through C7 and anteriorly of C3 through C7. Anterior plate and screws are unchanged in position. Posterior rods and screws are unchanged in position. There is no definite acute fracture or dislocation. IMPRESSION: Prior extensive anterior and posterior cervical fusion. No definite acute fracture or dislocation. <Electronically signed by Fantasma Dunn > 01/27/21 [id number]
--- NOTE | 2021-01-27 15:14 | REP ---
INDICATION: fall, trauma. COMPARISON: Comparison lumbar spine radiographs May 27, 2020.. TECHNIQUE: Five views of the lumbar spine are provided. FINDINGS: Transpedicle screws and interconnecting rods are seen on the right from T11 through L2 and on the left at T12 and L2 unchanged. There are advanced degenerative disc changes at the thoracolumbar levels. There is mild stable wedging at the L3 vertebral body and degenerative disc spurring is seen at L2-3. By convex disc margins are noted at L4-5 unchanged. No new fracture or collapse is seen compared to the prior study. There is diffuse osteopenia. Surgical clips are noted in the anterior periaortic region. Vascular calcifications noted. Sacrum and SI joints appear intact. IMPRESSION: Status post transpedicle screw and dorsal fixation rods from T11 to L2 as before. No new fracture or collapse. Degenerative disc changes noted. <Electronically signed by Rene Warner > 01/27/21 [id number]
--- NOTE | 2021-01-27 15:17 | REP ---
INDICATION: fall, trauma. COMPARISON: Cervical spine radiographs 10/03/2017. chest radiographs 12/03/2020. TECHNIQUE: Four AP and lateral views thoracic spine FINDINGS: Metallic rods and screws are again seen in the mid and lower thoracic spine unchanged. No new compression fracture is seen. There is moderate diffuse spurring. There is diffuse osteopenia. IMPRESSION: Stable postsurgical and degenerative changes. No acute findings. <Electronically signed by Fantasma Dunn > 01/27/21 [id number]
[2021-01-27 15:39] VITALS: BP 158/81
[2021-01-28] MEDS ORDERED: CINA30TA5 PO (19:04)
[2021-01-28] MEDS ORDERED: MAGN50TA PO (19:04)
== END 2021-01-27 16:13 | disposition home or self-care (01) ==
LOC: M ED 13:06
DX: M54.9 Dorsalgia, unspecified (principal); W19.XXXA Unspecified fall, initial encounter; Y92.9 Unspecified place or not applicable; Y93.9 Activity, unspecified; Y99.9 Unspecified external cause status; Z98.1 Arthrodesis status; K21.9 Gastro-esophageal reflux disease without esophagitis; N18.9 Chronic kidney disease, unspecified; I11.0 Hypertensive heart disease with heart failure; I50.9 Heart failure, unspecified; Z79.01 Long term (current) use of anticoagulants; Z79.82 Long term (current) use of aspirin; Z79.899 Other long term (current) drug therapy; Z88.1 Allergy status to other antibiotic agents; Z88.6 Allergy status to analgesic agent; Z88.8 Allergy status to other drugs, medicaments and biological substances

== ENCOUNTER 2021-01-28 06:36 | Inpatient (IN) | payer MEDICARE ==
[~2021-01-28] VITALS: Ht 177.8 cm; Wt 68.5 kg
[2021-01-28] MEDS ORDERED: ISOVUE-300 61% 50ML VIAL As Ordered ONE (07:02)
[2021-01-28] MEDS ORDERED: fentaNYL 100 MCG/2 ML INJECTION (J3010) As Ordered ONE ×3 (07:02→14:07)
[2021-01-28] MEDS ORDERED: MIDAZOLAM INJ 2MG/2ML VIAL (J2250 PER 1MG) As Ordered ONE ×3 (07:03→14:07)
[2021-01-28] MEDS ORDERED: LIDOCAINE 1% MDV 20ML VIAL As Ordered ONE (07:03)
[2021-01-28 07:21] LABS: HEMATOCRIT 37.8 % (42.0-52.0); MEAN CORPUSCULAR HEMOGLOBIN 29.7 pg (27.0-33.0); MEAN CORPUSCULAR HGB CONC 31.7 g/dl (32.0-36.5); MEAN CORPUSCULAR VOLUME 93.6 fl (80.0-96.0); PLATELET COUNT, AUTOMATED 222 10^3/uL (150-450); RED BLOOD COUNT 4.04 10^6/uL (4.30-6.10); WHITE BLOOD COUNT 11.4 10^3/uL (4.0-10.0)
[2021-01-28 07:32] LABS: INR 1.94; PROTHROMBIN TIME 22.6 SECONDS (12.5-14.3)
[2021-01-28 07:50] LABS: BLOOD UREA NITROGEN 16 MG/DL (7-18); CALCIUM LEVEL 10.7 MG/DL (8.8-10.2); CARBON DIOXIDE LEVEL 33 MEQ/L (21-32); CHLORIDE LEVEL 100 MEQ/L (98-107); CREATININE FOR GFR 1.16 MG/DL (0.70-1.30); GLOMERULAR FILTRATION RATE > 60.0 (>42); GLUCOSE, FASTING 147 MG/DL (70-100); POTASSIUM SERUM 3.7 MEQ/L (3.5-5.1); SODIUM LEVEL 139 MEQ/L (136-145)
[2021-01-28] MEDS ORDERED: NITROGLYCERIN IN D5W 25MG/250ML (100MCG/ML) As Ordered ONE (09:34)
[2021-01-28] MEDS ORDERED: PERCOCET 5MG/325MG TAB As Ordered ONE (10:44)
--- NOTE | 2021-01-28 10:46 | ROOPDOC ---
[facility] Report Of Operation Report of Operation DATE OF PROCEDURE: 01/28/21 PREPROCEDURE DIAGNOSES: Atherosclerosis in the [place] arteries with ischemic changes left foot, long-standing rest pain, nonhealing wounds left fourth and fifth toes POSTPROCEDURE DIAGNOSES: Same PROCEDURE: 1. Ultrasound-guided access right common femoral artery 2. Aortoiliofemoral arteriogram 3. Selection left common femoral and superficial femoral artery left lower extremity runoff 4. Selection popliteal artery left with runoff 5. Selection distal left anterior tibial artery with runoff 6. Selection distal left peroneal artery with runoff 7. Selection distal left posterior tibial artery with runoff 8. Angioplasty left superficial femoral artery and proximal popliteal artery was 6 x 200 Maupin balloon 9. Cross chronic total occlusions left anterior tibial artery, left posterior tibial artery, left peroneal artery and angioplasty with 2.5 x 220 and 2 x 220 Shalom balloons 10. Multiple repeat angioplasties of left anterior tibial artery, left posterior tibial artery, left peroneal artery with 2.5 x 220 and 2 x 220 Shalom balloons 11. Completion arteriograms left lower extremity 12. Mynx closure right common femoral artery SURGEON: Ivy Ortez MD ANESTHESIA: Local anesthesia 5 mL lidocaine. Moderate intravenous conscious sedation was supervised by Dr. Ortez. The patient was independently monitored by registered nurse assigned to the Department of radiology using automated blood pressure, EKG, and pulse oximetry. The detailed sedation record is permanently stored in the hospital information system. The following is a presedation record: Start time 08:04, stop time 09:45, Versed 3.5 mg IV, fentanyl 175 g IV, heparin 3000 units IV. INDICATION FOR PROCEDURE: This is a very pleasant 76-year-old gentleman with a long-standing history of atherosclerosis the [place] arteries who over the past 2 months has had progressively worse to rest pain in the left foot, and developed ulcerations between the fourth and fifth toe and at the base of the fourth and fifth toes on the plantar surface. He saw Dr. Monique who ordered an arterial study and the patient was appropriately referred to us for revascularization. We discussed the risks benefits and alternatives to an arteriogram of the left lower extremity and potential intervention. The patient's foot prior to the procedure today was pale, mottled, with some minimal erythema around the fourth and fifth toes, induration, a bit of foul drainage which we cleaned and dressed, and very faint monophasic signals that were extremely difficult to Doppler at the DP and PT on the left. His right foot is warm and pink. I discussed with him that I was not sure we would be able to provide sufficient revascularization to salvage the foot, but it was certainly be worthwhile to try. On his arterial duplex he has some stenosis in the SFA and profound tibial disease, and we would do our best to try to improve flow. The patient was extensively counseled and all questions were answered. He is agreeable to proceed. INTERPRETATION: 1. There is good flow through the distal aorta but 30% stenosis at the origin of the bilateral common iliac arteries. This does not appear flow-limiting. There is some tortuosity throughout the iliacs, but not severe. Other than the stenosis near the origins, there is widely patent inflow through the bilateral common iliac arteries, hypogastric arteries, and external iliac arteries. 2. The left common femoral artery is heavily calcified and ectatic but patent with good runoff into the profunda. The profunda is also heavily calcified mildly stenotic but no significant stenosis noted. The left superficial femoral artery is heavily calcified but widely patent proximally, it however in the midportion there are several focal stenoses ranging from 70-90%. There are also some 40-60% focal stenoses throughout the distal SFA and 30% stenoses noted intermittently in the proximal popliteal artery. The mid and distal popliteal artery is calcified but widely patent. There is very limited intermittent tibial flow. There is no in-line flow to the foot. All 3 vessels are heavily calcified, heavily diseased, with only very small amounts of intermittent filling with collateral circulation. There is very limited runoff overall with sluggish flow through the SFA due to the tibial disease. No vessels are visualized at the foot. 3. After angioplasty of the left superficial femoral artery, we do not see good runoff through the vessel so I selected the distal artery and injected contrast distal to proximal in the vessel is widely patent, but there is no outflow below the knee. I do not see any dissection extravasation or evidence of embolization. 4. After extensive efforts were made to cross the chronic total occlusion in the left anterior tibial artery, distal contrast injection confirmed we were in the true lumen and the DP was patent. We were not able to pass the balloon through the occlusions in the vessel due to heavy calcification and dense plaque, very chronic occlusions. We did angioplasty up to these areas and then try to pass the balloon again but was still unsuccessful. This is very heavy severe disease. After passing a Gilbert catheter through the occlusions multiple times, we were then able to pass the Shalom balloon. After angioplasty multiple times distally and proximally, we still had no significant runoff through the anterior tibial artery, despite injecting distally and seeing we had outflow. This process was repeated with very technically difficult efforts in the peroneal artery and the posterior tibial artery as well. The occlusions were so severe we could not pass the balloon despite being able to cross with the wire. We eventually were able to core through enough with a Gilbert to get the balloons through. Multiple three-minute inflations along both vessels were performed, along with repeating again in the anterior tibial artery, and despite this we still had very limited runoff. After injection into the tibials 400 units total of nitroglycerin, there was slightly better flow, but still no significant runoff to the foot due to such heavy plaque and calcification in the distal tibial vessels. We tried repeat angioplasty again, but still could not maintain patency. Final runoff revealed inflow through the anterior tibial artery with no significant outflow through the mid distal vessel, inflow through the tibial peroneal trunk and posterior tibial artery and peroneal artery to the mid calf with no significant outflow to the foot. REPORT OF OPERATION: The patient was brought to the angiographic suite in stable condition. His bilateral groins were prepped and draped in sterile fashion. A timeout was performed. Sedation was ministered without complication. Local anesthesia was ministered to the skin and subcutaneous tissue over the right groin. A microneedle was used to access the right common femoral artery and ultrasound guidance. A wire was passed through this access and the needle was removed. A 4 Faroese sheath was placed and flushed with saline. A Glidewire and flushing catheter were advanced into the distal aorta. Aortoiliofemoral arteriograms were performed, please interpretation above. We went up and over the bifurcation with a Glidewire and flushing catheter and selected the left common femoral and proximal superficial femoral artery. Left lower extremity arteriogram performed, please interpretation above. We advanced a Glidewire through the near occlusions in the SFA to the popliteal artery and exchange the sheath for 6 x 45 cm destination sheath and flushed sheath with saline. Heparin was given and allowed circulate. The patient also has an INR of 2 from his Coumadin use in addition to the heparin we gave. Next, we advanced a 6 x 200 Maupin balloon over the wire into three-minute inflations along the length of the SFA and proximal popliteal artery. Following this we didn't have great flow through the vessel due to limited outflow, the contrast injection through the vessel while retracting from the popliteal to the common femoral show that there was flow throughout the vessel. The angioplasty made a significant difference in luminal patency and there was less than 20% residual stenosis. We then exchange the wire for a 018 Glidewire advantage and advance this down to the distal popliteal artery. We were able to cross through to the distal anterior tibial artery and we did advance to 2.5 x 220 Shalom balloon. Unfortunately, we were not able to get the balloon through the occlusions in the vessel due to heavy calcification and dense plaque, very chronic occlusions. We did angioplasty up to these areas and then try to pass the balloon again but was still unsuccessful. This is very heavy severe disease. After passing a Gilbert catheter through the occlusions multiple times, we were then able to pass the Shalom balloon. After angioplasty multiple times distally and proximally, we still had no significant runoff through the anterior tibial artery, despite injecting distally and seeing we had outflow. This process was repeated with very technically difficult efforts in the peroneal artery and the posterior tibial artery as well. The occlusions were so severe we could not pass the balloon despite being able to cross with the wire. We eventually were able to core through enough with a Gilbert to get the balloons through. Multiple three- minute inflations along both vessels were performed, along with repeating again in the anterior tibial artery, and despite this we still had very limited runoff. Extensive long inflation angioplasties were performed on all 3 tibial vessels repeatedly trying to maintain any outflow to the foot in order to salvage the leg. After injection into the tibials 400 units total of ni troglycerin, there was slightly better flow, but still no significant runoff to the foot due to such heavy plaque and calcification in the distal tibial vessels. We tried repeat angioplasty again, but still could not maintain patency. Final runoff revealed inflow through the anterior tibial artery with no significant outflow through the mid distal vessel, inflow through the tibial peroneal trunk and posterior tibial artery and peroneal artery to the mid calf with no significant outflow to the foot. This was a very technically challenging case for many reasons. The patient had profound calcified dense long-standing disease, complete occlusions of the tibials, no runoff to the foot, and heavy calcified plaque. 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 He was constantly moving during the entire procedure making this even more challenging. Unfortunately, after the most extensive efforts, we did not significantly improve flow to the foot and I felt continuing the procedure with how uncomfortable the patient felt would not provide any different outcome. I discussed with him that he was likely going to lose his leg. Unless the nitroglycerin opened up some flow, I do not see that the leg is salvageable. I discussed with him that we will likely admit him to the hospital as I do not feel he is okay to go home with the degree of pain, ischemia, and the condition of his foot. He was agreeable to this and was grateful to stop the procedure as it was so uncomfortable for him. He was also grateful that we made every effort we could to revascularize his foot. We extended the sheath for short 6 Faroese sheath and flushes sheath with saline. A Mynx closure device was deployed with good hemostasis. Pressure was held at the right groin and sterile dressings were applied and the patient was taken to recovery in stable condition. At case close, his foot still appeared pale and mottled and did not seem improved despite our efforts. ESTIMATED BLOOD LOSS: Approximately 7 mL. COMPLICATIONS: None. PLAN: Likely we will admit the patient to the hospital and he will likely require a left above-knee amputation for ischemia, nonhealing foot wounds with infection, rest pain, and no option for further revascularization. He does not have a distal target patent for a bypass. I do not have any further options since our efforts today were unsuccessful. We will discuss admitting him to the hospitalist service, with likely plan for amputation today or tomorrow. We appreciate the opportunity to participate in the care of this patient. IVY ORTEZ MD January 28, 2021 10:46
[2021-01-28] MEDS: PERCOCET 5MG/325MG TAB PO PRN ×2 (10:48→20:35)
[2021-01-28] MEDS ORDERED: NS 1,000 ML IV SCH (11:35)
[2021-01-28] MEDS ORDERED: HYDROmorphone 2 MG TAB PO PRN (12:10)
[2021-01-28] MEDS ORDERED: PILL CUTTER 1 EACH XX PRN (12:25)
[2021-01-28] MEDS ORDERED: LIDOCAINE 2% 100MG/5ML SDV (FOR ANES.) As Ordered ONE (14:07)
[2021-01-28] MEDS ORDERED: propofoL 200 MG/20 ML VIAL As Ordered ONE (14:07)
[2021-01-28] MEDS ORDERED: BUPIVACAINE/EPIN 0.5% 30 ML VIAL As Ordered ONE ×2 (14:32→16:05)
--- NOTE | 2021-01-28 14:39 | HPEPDOC ---
General Date of Admission January 28, 2021 at 11:54 Date of Service: January 28, 2021 Chief Complaint The patient is a 76-year-old male admitted with a reason for visit of Atherosclerosis. Source: Patient, RN/MD History of Present Illness This is a very pleasant 76-year-old gentleman with multiple medical problems and a long-standing history of atherosclerosis of the [place] arteries who over the past 2 months has had progressively worse to rest pain in the left foot, and developed ulcerations between the fourth and fifth toe and at the base of the fourth and fifth toes on the plantar surface. He saw Dr. Monique who ordered an arterial study and the patient was appropriately referred to Vascular for revascularization. Angiography of the left leg by Dr Alex showed blockag es in the SFA and Popliteal artery. Had successful Angioplasty left superficial femoral artery and proximal popliteal artery. He also had chronic total occlusions left anterior tibial artery, left posterior tibial artery, left peroneal artery. Tried Multiple repeat angioplasties of left anterior tibial artery, left posterior tibial artery, left peroneal artery which were unfortunately successful. So the patient was admitted for above knee amputation for acute left leg ischemia. Home Medications Scheduled Amiloride HCl (Amiloride HCl) 5 Mg Tablet, 5 MG PO DAILY, (Reported) Aspirin (Ecotrin) 81 Mg Tablet.dr, 81 MG PO DAILY for pain, (Reported) Azathioprine (Azathioprine) 50 Mg Tablet, 100 MG PO DAILY, (Reported) Calcitriol (Calcitriol) 0.25 Mcg Cap, 0.25 MCG PO 3XW, (Reported) MON-WED-FRI Digoxin (Digoxin) 125 Mcg Tablet, 0.125 MCG PO DAILY, (Reported) Gabapentin (Gabapentin) 300 Mg Capsule, 600 MG PO TID, (Reported) Magnesium Oxide (Magnesium) 500 Mg Capsule, 6 TABS PO BID for constipation, (Reported) Oxycodone HCl/Acetaminophen (Oxycodon-Acetaminophen 7.5-325) 1 Each Tablet, 7.5 MG PO Q8H, (Reported) Potassium Chloride (Potassium Chloride) 10 Meq Tablet.er, 10 MEQ PO BID, (Reported) Prednisone (Prednisone) 5 Mg Tab, 5 MG PO DAILY, (Reported) Sirolimus (Rapamune) 1 Mg Tablet, 2 TAB PO DAILY, (Reported) Sod Phos Di, Pitt/K Phos Pitt (Virt-Phos 250 Neutral Tablet) 1 Tab Tab, 2 TAB PO BID, (Reported) Torsemide (Torsemide) 20 Mg Tablet, 40 MG PO BID, (Reported) Vitamin B Complex Vit C No.3 (B Complex with Vitamin C) 1 Cap Cap, 1 CAP PO DAILY, (Reported) Warfarin Sodium (Warfarin Sodium) 3 Mg Tablet, 1 TAB PO QPM, (Reported) Scheduled PRN Acetaminophen (Acetaminophen) 325 Mg Tablet, 650 MG PO Q4H PRN for PAIN, (Reported) Cyclobenzaprine HCl (Cyclobenzaprine HCl) 10 Mg Tablet, 10 MG PO BID PRN for MUSCLE SPASMS, (Reported) Diazepam (Diazepam) 2 Mg Tablet, 2 MG PO TID PRN for ANXIETY, (Reported) Docusate Sodium (Docusate Sodium) 100 Mg Capsule, 100 MG PO DAILY PRN for CONSTIPATION, (Reported) Hydroxyzine HCl (Hydroxyzine HCl) 25 Mg Tablet, 50 MG PO QHS PRN for INSOMNIA, (Reported) Lidocaine (Lidoderm) 5% Adh..patch, 1 PATCH TOP DAILY PRN for PAIN, (Reported) APPLY TO BACK 12HR ON, 12HR OFF Methyl Salicylate/Menthol (Icy Hot Cream) 35.4 Gm Cream..g., 1 APLCT TOP DAILY PRN for BACK PAIN, (Reported) Ondansetron HCl (Zofran) 4 Mg Tablet, 4 MG PO TID PRN for NAUSEA OR VOMITING, (Reported) Polyethylene Glycol 3350 (Miralax) 119 Gm Powder, 17 GRAM PO QHS PRN for CONSTIPATION, (Reported) DISSOLVE IN WATER OR JUICE Allergies Coded Allergies: Quinolones (Verified Allergy, Unknown, 01/07/21) oxybutynin (Verified Allergy, Unknown, 01/07/21) tamsulosin (Verified Allergy, Unknown, 01/07/21) ciprofloxacin (Verified Adverse Reaction, Intermediate, HEART RACES, 01/07/21) levofloxacin (Verified Adverse Reaction, Intermediate, HEART RACES, 01/07/21) amoxicillin (Verified Adverse Reaction, Mild, can take few prior to dentist but can not take for 10 days, 01/07/21) cefuroxime (Verified Adverse Reaction, Mild, ANXIETY, 01/07/21) codeine (Verified Adverse Reaction, Mild, AGITATION, 01/07/21) doxycycline (Verified Adverse Reaction, Mild, UPSET STOMACH, 01/07/21) lorazepam (Verified Adverse Reaction, Mild, AGITATION, 01/07/21) pregabalin (Verified Adverse Reaction, Mild, ANXIETY, DROWSINESS, 01/07/21) tizanidine (Verified Adverse Reaction, Unknown, 01/07/21) Past Medical History Medical History IgA Nephropathy ESRD since 1999 s/p renal transplant in 2006 Renal stone in transplanted kidney seen 3 months after transplant with reccurent pyelonephritis in transplanted kidney Ureteric stone in aug 2019 causing obs of transplanted kidney requiring Perc nephrostomy tube into the transplanted kidney, removed in March 2020. Recurrent UTIs from 2019 CAD s/p stents x 6 last in (03/19/2020) Mod/Severe Aortic stenosis Atrial fibrillation (on Coumadin) Chronic HTN Neuropathy Iron deficiency anemia Hypomagnesemia hypophosphatemia secondary hyperparathyroidism. Osteoporosis GERD Hernia surgeries Multiple spinal surgeries Neck surgeries with collar status post thoracolumbar fusion, bilateral nephrectomies, ventral hernia repair Epigastric hernia transmitting small bowel Incarcerated Left inguinal hernia s/p open hernia surgery repair with mesh aug 2020 Laparoscopy and robotic assisted laparoscopy with extensive lysis of adhesions with sigmoid colotomy, repair of colotomy and irrigation of the abdomen in aug 2020 A-FIB/CHADSVASC A-FIB History Current/History of A-Fib/PAF?: Yes Current PO Anticoag Therapy: Yes Review of Systems Constitutional: Denies: Chills, Fever, Night Sweats Eyes: Denies: Pain, Vision change ENT: Denies: Head Aches, Ear Pain, Dysphagia Skin: Denies: Rash, Lesions, Breakdown Pulmonary: Denies: Dyspnea, Cough Cardiovascular: Denies: Chest Pain, Palpitations, Orthopnea, Paroxysmal Noc. Dyspnea, Lt Headedness Gastrointestinal: Denies: Nausea, Vomiting, Abdominal Pain, Diarrhea Musculoskeletal: Reports: Leg Pain (left), Foot Pain Neurological: Denies: Weakness, Numbness, Change in speech, Confusion Physical Examination General Exam: Positive: Alert, Cooperative, No Acute Distress Eye Exam: Positive: PERRLA, Conjunctiva & lids normal, EOMI; Negative: Sclera icteric ENT Exam: Positive: Atraumatic, Mucous membr. moist/pink, Pharynx Normal Neck Exam: Positive: Supple; Negative: JVD, thyromegaly Chest Exam: Positive: Clear to auscultation, Normal air movement Heart Exam: Positive: Rate Normal, Irregular Rhythm, Normal S1, Normal S2, Murmurs (systolic); Negative: Rubs Abdomen Exam: Positive: Normal bowel sounds, Soft; Negative: Tenderness Extremity Exam: Positive: Tenderness (left leg), Swelling (left leg), Other (cold and mottled up to just below the knee) Skin Exam: Positive: Lesion (non healing ulcer in between the 4th and 5th toes of left leg) Psych Exam: Positive: Memory Intact, Oriented x 3 Vital Signs Vital Signs Date Time Temp Pulse Resp B/P (MAP) Pulse Ox O2 Delivery O2 Flow Rate FiO2 01/28/21 12:38 20 98 01/28/21 11:15 77 Room Air 01/28/21 10:48 146/74 01/28/21 09:55 2.0 01/28/21 06:44 97.5 Laboratory Data Labs 24H Laboratory Tests 2 01/28/21 07:10: Nucleated Red Blood Cells % (auto) 0.0, Prothrombin Time 22.6H, Prothromb Time International Ratio 1.94, Anion Gap 6L, Glomerular Filtration Rate > 60.0, Calcium Level 10.7H 01/28/21 12:30: Coronavirus (COVID-19)(PCR) NEGATIVE CBC/BMP Laboratory Tests 01/28/21 07:10 Assessment/Plan This is a very pleasant 76-year-old gentleman with multiple medical problems and a long-standing history of atherosclerosis of the [place] arteries who over the past 2 months has had progressively worse to rest pain in the left foot, and developed ulcerations between the fourth and fifth toe and at the base of the fourth and fifth toes on the plantar surface. He saw Dr. Monique who ordered an arterial study and the patient was appropriately referred to Vascular for revascularization. Angiography of the left leg by Dr Alex showed blockages in the SFA and Popliteal artery. Had successful Angioplasty left superficial femoral artery and proximal popliteal artery. He also had chronic total occlusions left anterior tibial artery, left posterior tibial artery, left peroneal artery. Tried Multiple repeat angioplasties of left anterior tibial artery, left posterior tibial artery, left peroneal artery which were un fortunately successful. So the patient was admitted for above knee amputation for acute left leg ischemia. Acute on Chronic left leg ischemia with non healing ulcer in the foot. all 3 arteries below the knee were blocked unsuccessful angioplasties today going for Left AKA Coumadin to be restarted when Ok with Vascular. Chronic Afib cont Digoxin and coumadin after cleared from surgery H/o Nephrolithiasis in transplanted kidney and ureteric stone and ureteric stricture s/p perc nephrostomy tube in the transplanted kidney removed in march 2020 patient reports that the transplant kidney has stones from the beginning. He has in fact found out that the other kidney from the same person which went to another person also has stones CAD: s/p stent 03/19/20. Cont ASA and coumadin. planned for cardiac cath again next week. Chronic anemia iron deficiency. IgA Nephropathy/ ESRD since 1999 s/p R renal transplant 2006 C/w azathioprine, sirolimus, prednisone calcitriol, Nephrology consult Hypomagnesemia: magnesium PO and Amiloride Secondary hyperparathyroidism: Calcitriol Chronic Hypophosphatemia continue nutraphos. HTN amlodipine, amiloride, torsemide Aortic Stenosis: Last echo 05/2019. Repeat annually for surveillance. Ensure cardiology follow up. Neuropathy: Gabapentin , cymbalta, percocet Chronic constipation bowel regimen. Chronic back pain and neck pain with significant degenerative spine changes, status post reconstructive surgery. The patient remains on chronic pain medications and seems to be doing at about his baseline. Uses a soft collar. Gabapentin , cymbalta, percocet Plan / VTE VTE Prophylaxis Ordered?: Yes JOSE FUNES MD January 28, 2021 13:49
[2021-01-28] MEDS ORDERED: VANCOMYCIN 1000MG/20ML VIAL As Ordered ONE (15:00)
[2021-01-28] MEDS ORDERED: PHENYLephrine 500MCG 5ML (100MCG/ML) SYRINGE As Ordered ONE (16:06)
[2021-01-28] MEDS ORDERED: ONDANSETRON 4MG/2ML VIAL IV PRN (17:10)
[2021-01-28] MEDS ORDERED: oxyCODONE 5MG TAB PO PRN (17:10)
[2021-01-28] MEDS ORDERED: LR 1,000 ML IV SCH (17:10)
[2021-01-28] MEDS ORDERED: fentaNYL 100 MCG/2 ML INJECTION (J3010) IV PRN (17:10)
--- NOTE | 2021-01-28 17:22 | ROOPDOC ---
[facility] Report Of Operation Report of Operation DATE OF PROCEDURE: 01/28/21 PREPROCEDURE DIAGNOSES: Atherosclerosis of the [place] arteries with ischemia and nonhealing wounds left foot and severe rest pain POSTPROCEDURE DIAGNOSES: Same PROCEDURE: Left above knee amputation SURGEON: Ivy Ortez MD ANESTHESIA: GETA and local INDICATION FOR PROCEDURE: This is a very pleasant 76-year-old patient with severe end-stage atherosclerosis in the [place] arteries in the left lower extremity, nonhealing wounds of the fourth and fifth toes of the left foot with infection, and severe rest pain that is intractable at this point. The patient had appointments with us that he had rescheduled a few times, but eventually we saw him last week and scheduled him for an arteriogram. At that time, the foot was a bit better perfused than what we see today. There was no sign of infection in the fourth and fifth toe at that time. The patient underwent attempts for endovascular revascularization this morning. He had no tibial flow to the foot prior to the procedure, with a pale mottled painful foot. We were able to successfully angioplasty the blockages in his left superficial femoral artery, and we were able to cross the occlusions in all 3 tibial vessels to the foot, but angioplasty of the tibial vessels was ultimately unsuccessful. We repeated the angioplasty extensively, but still could not maintain patent flow to the foot due to severe intra-arterial disease and minimal distal outflow. Postproce dure, the patient's foot was still pale mottled, and he was still complaining of intractable pain. I do not have an option for open revascularization either, as there is no patent distal target to bypass to, and we have exhausted efforts for possible endovascular revascularization. He says he hasn't slept in weeks because of the pain. I did not feel comfortable sending him home, despite the fact that he was reluctant to discuss amputation. After a few hours, the patient did want to discuss amputation and said he would rather get it done sooner than later. I think this is jeter. At this point, he's already held his Coumadin and is NPO, and we have time to add him on this afternoon. Risks benefits and alternatives to the left above-knee amputation were discussed to the patient and he was agreeable to proceed. Informed consent was obtained. REPORT OF OPERATION: Patient was brought to the operating room in stable condition. Anesthesia and antibiotics were administered without complication. His left lower extremity was prepped and draped in a sterile fashion. A timeout was performed. Local anesthesia was administered to the skin and subcutaneous tissue circumferentially at the distal thigh. A skin knife was used to make a [place] incision at the knee. This was carried down to the subcutaneous tissue with Bovie cautery. Due to the heavy calcified nature of the patient's vessels, tourniquet was not used for this case. We dissected down through the fascia and the muscle with Bovie cautery. Bridging veins were suture ligated and divided. The popliteal artery and popliteal vein were suture ligated and divided. The femur was skeletonized proximally and distally. We elevated the periosteum. A high transection of the femur was performed with the bone saw. The posterior sof t tissue was divided in the leg was sent for pathology. The anterior aspect of the bone was slightly beveled. A rasp was used to smooth the bone edges. Bovie cautery and sutures were used for hemostasis. We irrigated with copious amounts of saline. The deep tissues were approximated to the periosteum to cover the bone with 2-0 Vicryl suture. The deep fascia was approximated anterior to posterior with 2-0 Vicryl [id number] sutures. We approximated all the tissue in the deep area to close the space. We then closed the fascia superficially with [id number] Vicryl sutures. Care was taken to make sure we do not have any gaps in the closure. We then approximated the skin edges with nylon mattress sutures. Skin erik were used as the final closure between the sutures. The incision was clean and dry. Xeroform fluffs and kerlix were used to dress the stump. An Kyle wrap was placed as a final dressing. The patient was allowed to awaken from anesthesia and taken to recovery in stable condition. He tolerated the procedure well. SPECIMEN: Left lower leg sent for pathology. ESTIMATED BLOOD LOSS: Approximately 50 mL. COMPLICATIONS: None. PLAN: Admit hospitalist team. Analgesia prn. High protein diet. PT/OT/ARU consult. Okay to restart Coumadin, but would not bridge. We appreciate the opportunity to participate in the care of this patient. IVY ORTEZ MD January 28, 2021 17:22
[2021-01-28 18:00] VITALS: BP 164/82
[2021-01-28 18:27] VITALS: BP 172/74
[2021-01-28] MEDS ORDERED: MAGN50TA PO (19:04)
[2021-01-28] MEDS ORDERED: CINA30TA5 PO (19:04)
[2021-01-28 19:08] VITALS: BP 166/77
[2021-01-28 20:20] VITALS: BP 171/83
[2021-01-28] MEDS: GABAPENTIN 300 MG CAP PO SCH (20:33)
[2021-01-28] MEDS: POTASSIUM CHLORIDE 10 MEQ SR TABLET PO SCH (20:37)
[2021-01-28] MEDS: TORSEMIDE 20 MG TAB PO SCH (20:37)
[2021-01-28 21:20] VITALS: BP 173/87
[2021-01-28 22:30] VITALS: BP 164/85
[2021-01-28] MEDS: hydrOXYzine 25 MG TAB PO PRN (22:54)
[2021-01-29] VITALS: BP 142/75
[2021-01-29] MEDS: CYCLOBENZAPRINE 10MG TABLET PO PRN (01:11)
[2021-01-29] MEDS: PERCOCET 5MG/325MG TAB PO PRN ×4 (01:12→20:25)
[2021-01-29 04:00] VITALS: BP 154/73
[2021-01-29 06:09] LABS: BASO % 0.2 % (0.0-1.0); EOS % 0.3 % (0.0-3.0); HEMOGLOBIN 11.6 g/dl (13.5-17.5); LYMPH # 1.4 10^3/uL (1.5-5.0); LYMPH % 14.1 % (24.0-44.0); MEAN CORPUSCULAR HEMOGLOBIN 29.4 pg (27.0-33.0); MEAN CORPUSCULAR HGB CONC 31.4 g/dl (32.0-36.5); MEAN CORPUSCULAR VOLUME 93.7 fl (80.0-96.0); MONO % 10.2 % (2.0-8.0); NEUTROPHILS # 7.4 10^3/uL (1.5-8.5); NEUTROPHILS % 74.4 % (36.0-66.0); PLATELET COUNT, AUTOMATED 205 10^3/uL (150-450); RED BLOOD COUNT 3.95 10^6/uL (4.30-6.10)
[2021-01-29 06:17] LABS: INR 1.41; PROTHROMBIN TIME 17.6 SECONDS (12.5-14.3)
[2021-01-29 06:18] LABS: PARTIAL THROMBOPLASTIN TIME 35.2 SECONDS (24.2-38.5)
[2021-01-29 06:36] LABS: BLOOD UREA NITROGEN 14 MG/DL (7-18); CALCIUM LEVEL 9.5 MG/DL (8.8-10.2); CARBON DIOXIDE LEVEL 29 MEQ/L (21-32); CHLORIDE LEVEL 105 MEQ/L (98-107); CREATININE FOR GFR 0.78 MG/DL (0.70-1.30); GLOMERULAR FILTRATION RATE > 60.0 (>42); GLUCOSE, FASTING 141 MG/DL (70-100); POTASSIUM SERUM 3.9 MEQ/L (3.5-5.1); SODIUM LEVEL 142 MEQ/L (136-145)
[2021-01-29 08:00] VITALS: BP 141/71
[2021-01-29] MEDS: GABAPENTIN 300 MG CAP PO SCH ×3 (08:57→20:23)
[2021-01-29] MEDS: TORSEMIDE 20 MG TAB PO SCH (08:57)
[2021-01-29] MEDS: azaTHIOprine 50 MG TAB (J7500) PO SCH (08:57)
[2021-01-29] MEDS: DIGOXIN 0.125 MG TAB PO SCH (08:57)
[2021-01-29] MEDS: predniSONE 5 MG TAB PO SCH (08:57)
[2021-01-29] MEDS: POTASSIUM CHLORIDE 10 MEQ SR TABLET PO SCH ×2 (08:58→20:22)
[2021-01-29] MEDS: ASPIRIN 81MG ENTERIC TABLET PO SCH (08:58)
[2021-01-29] MEDS ORDERED: CINACALCET 30 MG TAB (SENSIPAR) PO SCH (09:00)
--- NOTE | 2021-01-29 10:19 | IPNPDOC ---
Subjective Date Seen The patient was seen on 01/29/21. Subjective Chief Complaint/HPI Doing well this morning. Reports could not sleep much overnight, pain is controlled. Objective Physical Examination General Exam: Positive: Alert, Cooperative, No Acute Distress Eye Exam: Positive: PERRLA, Conjunctiva & lids normal, EOMI; Negative: Sclera icteric ENT Exam: Positive: Atraumatic, Mucous membr. moist/pink, Pharynx Normal Neck Exam: Positive: Supple; Negative: JVD, thyromegaly Chest Exam: Positive: Clear to auscultation, Normal air movement Heart Exam: Positive: Rate Normal, Irregular Rhythm, Normal S1, Normal S2, Murmurs (systolic); Negative: Rubs Abdomen Exam: Positive: Normal bowel sounds, Soft; Negative: Tenderness Extremity Exam: Positive: Other (left AKA in surgical dressing) Skin Exam: Positive: Other skin issue (right leg warm and slightly red in front of the ramos. toes are cool but no mottling. ) Neuro Exam: Positive: Normal Speech Psych Exam: Positive: Memory Intact, Oriented x 3 Assessment /Plan Assessment This is a very pleasant 76-year-old gentleman with multiple medical problems and a long-standing history of atherosclerosis of the [place] arteries who over the past 2 months has had progressively worse to rest pain in the left foot, and developed ulcerations between the fourth and fifth toe and at the base of the fourth and fifth toes on the plantar surface. He saw Dr. Monique who ordered an arterial study and the patient was appropriately referred to Vascular for revascularization. Angiography of the left leg by Dr Alex showed blockages in the SFA and Popliteal artery. Had successful Angioplasty left superficial femoral artery and proximal popliteal artery. He also had chronic total occlusions left anterior tibial artery, left posterior tibial artery, left peroneal artery. Tried Multiple repeat angioplasties of left anterior tibial artery, left posterior tibial artery, left peroneal artery which were unfortunately successful. So the patient was admitted for above knee amputation for acute left leg ischemia. Acute on Chronic left leg ischemia with non healing ulcer in the foot. all 3 arteries below the knee were blocked unsuccessful angioplasties and had emergent left AKA on 01/28/21 Coumadin restarted Chronic Afib cont Digoxin and coumadin H/o Nephrolithiasis in transplanted kidney and ureteric stone and ureteric stricture s/p perc nephrostomy tube in the transplanted kidney removed in march 2020 patient reports that the transplant kidney has stones from the beginning. He has in fact found out that the other kidney from the same person which went to another person also has stones CAD: s/p stent 03/19/20. Cont ASA and coumadin Chronic anemia iron deficiency. IgA Nephropathy/ ESRD since 1999 s/p R renal transplant 2006 C/w azathioprine, sirolimus, prednisone calcitriol, Hypomagnesemia: magnesium PO and Amiloride Secondary hyperparathyroidism: Calcitriol Chronic Hypophosphatemia continue nutraphos. HTN amlodipine, amiloride, torsemide Aortic Stenosis Was planned for a TAVR next week. Neuropathy: Gabapentin , cymbalta, percocet Chronic constipation bowel regimen. Chronic back pain and neck pain with significant degenerative spine changes, status post reconstructive surgery. The patient remains on chronic pain medications and seems to be doing at about his baseline. Uses a soft collar. Gabapentin , cymbalta, percocet Plan/VTE VTE Prophylaxis Ordered?: Yes VS, I&O, 24H, Fishbone Vital Signs/I&O Vital Signs Date Time Temp Pulse Resp B/P (MAP) Pulse Ox O2 Delivery O2 Flow Rate FiO2 01/29/21 09:10 16 Nasal Cannula 2.0 01/29/21 08:57 86 01/29/21 08:00 98.5 141/71 (94) 97 I&O- Last 24 Hours up to 6 AM 01/29/21 06:00 Intake Total 325 ml Output Total 1725 ml Balance -1400 ml Laboratory Data 24H LABS Laboratory Tests 2 01/28/21 12:30: Coronavirus (COVID-19)(PCR) NEGATIVE 01/29/21 05:33: Immature Granulocyte % (Auto) 0.8, Neutrophils (%) (Auto) 74.4H, Lymphocytes (%) (Auto) 14.1L, Monocytes (%) (Auto) 10.2H, Eosinophils (%) (Auto) 0.3, Basophils (%) (Auto) 0.2, Neutrophils # (Auto) 7.4, Lymphocytes # (Auto) 1.4L, Monocytes # (Auto) 1.0H, Eosinophils # (Auto) 0.0, Basophils # (Auto) 0.0, Nucleated Red Blood Cells % (auto) 0.0, Prothrombin Time 17.6H, Prothromb Time International Ratio 1.41, Activated Partial Thromboplast Time 35.2, Anion Gap 8, Glomerular Filtration Rate > 60.0, Calcium Level 9.5 CBC/BMP Laboratory Tests 01/29/21 05:33 JOSE FUNES MD January 29, 2021 10:19
[2021-01-29] MEDS: VITAMIN B COMPLEX/VIT C CAP PO SCH (10:31)
[2021-01-29] MEDS: aMILoride 5 MG TAB PO SCH (10:31)
[2021-01-29] MEDS: SIROLIMUS 1 MG TAB (RAPAMUNE) PO SCH (10:31)
[2021-01-29 12:00] VITALS: BP 146/91
[2021-01-29] MEDS: MAGNESIUM GLUCONATE 500 MG TAB PO SCH ×2 (12:31→20:20)
[2021-01-29] MEDS: K-PHOS NEUTRAL 250MG TABLET (SOD.PHOSPHATE/POT.PHOSPHATE) PO SCH ×2 (12:31→20:22)
[2021-01-29 13:08] LABS: MAGNESIUM LEVEL 1.7 MG/DL (1.8-2.4)
[2021-01-29 15:54] VITALS: BP 143/74
[2021-01-29] MEDS ORDERED: WARFARIN SOD 3MG TAB PO SCH (17:00)
[2021-01-29 20:00] VITALS: BP 138/66
[2021-01-29] MEDS: hydrOXYzine 25 MG TAB PO PRN (20:24)
[2021-01-30] VITALS: BP 152/67
[2021-01-30] MEDS: PERCOCET 5MG/325MG TAB PO PRN ×3 (01:26→15:47)
[2021-01-30] MEDS: CYCLOBENZAPRINE 10MG TABLET PO PRN (01:26)
[2021-01-30 04:00] VITALS: BP 160/78
[2021-01-30 05:25] LABS: BASO % 0.2 % (0.0-1.0); EOS % 0.2 % (0.0-3.0); HEMATOCRIT 36.3 % (42.0-52.0); HEMOGLOBIN 11.5 g/dl (13.5-17.5); LYMPH % 15.3 % (24.0-44.0); MEAN CORPUSCULAR HEMOGLOBIN 29.6 pg (27.0-33.0); MEAN CORPUSCULAR HGB CONC 31.7 g/dl (32.0-36.5); MEAN CORPUSCULAR VOLUME 93.6 fl (80.0-96.0); MONO # 1.9 10^3/uL (0.0-0.8); MONO % 14.7 % (2.0-8.0); NEUTROPHILS % 68.8 % (36.0-66.0); PLATELET COUNT, AUTOMATED 211 10^3/uL (150-450); RED BLOOD COUNT 3.88 10^6/uL (4.30-6.10)
[2021-01-30 05:48] LABS: BLOOD UREA NITROGEN 14 MG/DL (7-18); CALCIUM LEVEL 9.1 MG/DL (8.8-10.2); CARBON DIOXIDE LEVEL 28 MEQ/L (21-32); CHLORIDE LEVEL 104 MEQ/L (98-107); CREATININE FOR GFR 0.74 MG/DL (0.70-1.30); GLOMERULAR FILTRATION RATE > 60.0 (>42); GLUCOSE, FASTING 131 MG/DL (70-100); MAGNESIUM LEVEL 1.7 MG/DL (1.8-2.4); SODIUM LEVEL 140 MEQ/L (136-145)
[2021-01-30 06:09] LABS: WHITE BLOOD COUNT 13.1 10^3/uL (4.0-10.0)
--- NOTE | 2021-01-30 07:39 | IPNPDOC ---
Date Seen The patient was seen on 01/29/21. Progress Note Patient seen and examined postoperative day 1 status post left AKA for end-stage atherosclerosis of the [place] arteries without options for revascularization, ischemic tissue, and nonhealing wounds left foot. He is doing well at this point, no significant complaints of pain, tolerating a diet. On exam his incision is intact with erik and sutures. There is a thin layer of dried blood along the incision, but the patient is on Coumadin so this is not unexpected. We thoroughly clean the incision. A little bit of bruising is noted along the skin edge, but otherwise everything looks great. No significant swelling. No drainage. No active bleeding noted. Xeroform 4 x 4's Kerlix and Kyle wrap replaced as the final dressing. The patient tolerated this well. Plan for PT OT and ARU evaluation. We appreciate the opportunity to participate in the care of this patient. VS, I&O, 24H, Fishbone Vital Signs/I&O Vital Signs Date Time Temp Pulse Resp B/P (MAP) Pulse Ox O2 Delivery O2 Flow Rate FiO2 01/30/21 04:00 98.6 92 17 160/78 (105) 93 Room Air 01/29/21 15:54 2.0 I&O- Last 24 Hours up to 6 AM 01/30/21 06:00 Intake Total 0 ml Output Total 1350 ml Balance -1350 ml Laboratory Data 24H LABS Laboratory Tests 2 01/30/21 04:38: Immature Granulocyte % (Auto) 0.8, Neutrophils (%) (Auto) 68.8H, Lymphocytes (%) (Auto) 15.3L, Monocytes (%) (Auto) 14.7H, Eosinophils (%) (Auto) 0.2, Basophils (%) (Auto) 0.2, Neutrophils # (Auto) 9.0H, Lymphocytes # (Auto) 2.0, Monocytes # (Auto) 1.9H, Eosinophils # (Auto) 0.0, Basophils # (Auto) 0.0, Nucleated Red Blood Cells % (auto) 0.0, Anion Gap 8, Glomerular Filtration Rate > 60.0, Calcium Level 9.1, Magnesium Level 1.7L CBC/BMP Laboratory Tests 01/30/21 04:38 IVY CASE MD January 30, 2021 07:39
--- NOTE | 2021-01-30 07:42 | IPNPDOC ---
Date Seen The patient was seen on 01/30/21. Progress Note Patient seen and examined postoperative day 2 status post left AKA for end-stage atherosclerosis of the [place] arteries without options for revascularization, ischemic tissue, and nonhealing wounds left foot. He is a little more depressed today than yesterday, saying he is trying not to give up after losing his leg. I tried to reassure him that this is definitely an adjustment, but with physical therapy and rehabilitation, we're hopeful he will be able to eventually ambulate with a prosthetic. He was able to be encouraged and redirected, but will likely continue to need a lot of encouragement along his recovery. On exam his incision is intact with erik and sutures. There is a thin layer of dried blood along the incision, but the patient is on Coumadin so this is not unexpected. We th oroughly clean the incision. A little bit of bruising is noted along the skin edge, and today I noticed the posterior aspect of the stump has quite a bit of bruising. No active bleeding or fluctuance. No significant swelling. No drainage. We will have to monitor this closely. Unfortunately, with Coumadin, we do sometimes see increased bruising which can compromise healing. Xeroform 4 x 4's Kerlix and Kyle wrap replaced as the final dressing. The patient tolerated this well. Plan for PT OT and ARU evaluation. We appreciate the opportunity to participate in the care of this patient. VS, I&O, 24H, Fishbone Vital Signs/I&O Vital Signs Date Time Temp Pulse Resp B/P (MAP) Pulse Ox O2 Delivery O2 Flow Rate FiO2 01/30/21 04:00 98.6 92 17 160/78 (105) 93 Room Air 01/29/21 15:54 2.0 I&O- Last 24 Hours up to 6 AM0 01/30/21 06:00 Intake Total 0 ml Output Total 1350 ml Balance -1350 ml Laboratory Data 24H LABS Laboratory Tests 2 01/30/21 04:38: Immature Granulocyte % (Auto) 0.8, Neutrophils (%) (Auto) 68.8H, Lymphocytes (%) (Auto) 15.3L, Monocytes (%) (Auto) 14.7H, Eosinophils (%) (Auto) 0.2, Basophils (%) (Auto) 0.2, Neutrophils # (Auto) 9.0H, Lymphocytes # (Auto) 2.0, Monocytes # (Auto) 1.9H, Eosinophils # (Auto) 0.0, Basophils # (Auto) 0.0, Nucleated Red Blood Cells % (auto) 0.0, Anion Gap 8, Glomerular Filtration Rate > 60.0, Calcium Level 9.1, Magnesium Level 1.7L CBC/BMP Laboratory Tests 01/30/21 04:38 IVY CASE MD January 30, 2021 07:42
[2021-01-30 07:46] VITALS: BP 170/100
[2021-01-30] MEDS ORDERED: CALCITRIOL 0.25 MCG CAP (S0169) PO SCH (09:00)
[2021-01-30] MEDS: ASPIRIN 81MG ENTERIC TABLET PO SCH (09:12)
[2021-01-30] MEDS: K-PHOS NEUTRAL 250MG TABLET (SOD.PHOSPHATE/POT.PHOSPHATE) PO SCH (09:12)
[2021-01-30] MEDS: VITAMIN B COMPLEX/VIT C CAP PO SCH (09:12)
[2021-01-30] MEDS: azaTHIOprine 50 MG TAB (J7500) PO SCH (09:12)
[2021-01-30] MEDS: aMILoride 5 MG TAB PO SCH (09:13)
[2021-01-30] MEDS: SIROLIMUS 1 MG TAB (RAPAMUNE) PO SCH (09:13)
[2021-01-30] MEDS: GABAPENTIN 300 MG CAP PO SCH ×2 (09:13→15:47)
[2021-01-30] MEDS: MAGNESIUM GLUCONATE 500 MG TAB PO SCH (09:13)
[2021-01-30] MEDS: DIGOXIN 0.125 MG TAB PO SCH (09:14)
[2021-01-30] MEDS: POTASSIUM CHLORIDE 10 MEQ SR TABLET PO SCH (09:14)
[2021-01-30] MEDS: predniSONE 5 MG TAB PO SCH (09:14)
--- NOTE | 2021-01-30 09:53 | IPNPDOC ---
Subjective Date Seen The patient was seen on 01/30/21. Subjective Chief Complaint/HPI Patient is depressed with the loss of his leg as expected. He is needing some encouragement. I had a long conversation and explained that once he gets all the training he wont be dependent on others for every thing. He has poor appetite but says he is drinking ok. We will continue to encourage him. Objective Physical Examination General Exam: Positive: Alert, Cooperative, No Acute Distress Eye Exam: Positive: PERRLA, Conjunctiva & lids normal, EOMI; Negative: Sclera icteric ENT Exam: Positive: Atraumatic, Mucous membr. moist/pink, Pharynx Normal Neck Exam: Positive: Supple; Negative: JVD, thyromegaly Chest Exam: Positive: Clear to auscultation, Normal air movement Heart Exam: Positive: Rate Normal, Irregular Rhythm, Normal S1, Normal S2, Murmurs (systolic); Negative: Rubs Abdomen Exam: Positive: Normal bowel sounds, Soft; Negative: Tenderness Extremity Exam: Positive: Other (left AKA in surgical dressing) Skin Exam: Positive: Other skin issue (right leg warm and slightly red in front of the ramos. toes are cool but no mottling. ) Neuro Exam: Positive: Normal Speech Psych Exam: Positive: Memory Intact, Oriented x 3 Assessment /Plan Assessment This is a very pleasant 76-year-old gentleman with multiple medical problems and a long-standing history of atherosclerosis of the [place] arteries who over the past 2 months has had progressively worse to rest pain in the left foot, and developed ulcerations between the fourth and fifth toe and at the base of the fourth and fifth toes on the plantar surface. He saw Dr. Monique who ordered an arterial study and the patient was appropriately referred to Vascular for revascularization. Angiography of the left leg by Dr Alex showed blockages in the SFA and Popliteal artery. Had successful Angioplasty left superficial femoral artery and proximal popliteal artery. He also had chronic total occlusions left anterior tibial artery, left posterior tibial artery, left peroneal artery. Tried Multiple repeat angioplasties of left anterior tibial artery, left posterior tibial artery, left peroneal artery which were unfortunately successful. So the patient was admitted for above knee amputation for acute left leg ischemia. Acute on Chronic left leg ischemia with non healing ulcer in the foot. all 3 arteries below the knee were blocked unsuccessful angioplasties and had emergent left AKA on 01/28/21 Coumadin restarted Chronic Afib cont Digoxin and coumadin H/o Nephrolithiasis in transplanted kidney and ureteric stone and ureteric stricture s/p perc nephrostomy tube in the transplanted kidney removed in march 2020 patient reports that the transplant kidney has stones from the beginning. He has in fact found out that the other kidney from the same person which went to another person also has stones CAD: s/p stent 03/19/20. Cont ASA and coumadin Chronic anemia iron deficiency. IgA Nephropathy/ ESRD since 1999 s/p R renal transplant 2006 C/w azathioprine, sirolimus, prednisone calcitriol, Hypomagnesemia: magnesium PO and Amiloride Secondary hyperparathyroidism: Calcitriol Chronic Hypophosphatemia continue nutraphos. HTN amlodipine, amiloride, torsemide Aortic Stenosis Was planned for a TAVR next week. Neuropathy: Gabapentin , cymbalta, percocet Chronic constipation bowel regimen. Chronic back pain and neck pain with significant degenerative spine changes, status post reconstructive surgery. The patient remains on chronic pain medications and seems to be doing at about his baseline. Uses a soft collar. Gabapentin , cymbalta, percocet Plan/VTE VTE Prophylaxis Ordered?: Yes VS, I&O, 24H, Fishbone Vital Signs/I&O Vital Signs Date Time Temp Pulse Resp B/P (MAP) Pulse Ox O2 Delivery O2 Flow Rate FiO2 01/30/21 09:14 92 01/30/21 08:30 22 01/30/21 07:46 99.0 170/100 (123) 96 Room Air 01/29/21 15:54 2.0 I&O- Last 24 Hours up to 6 AM 01/30/21 06:00 Intake Total 0 ml Output Total 1350 ml Balance -1350 ml Laboratory Data 24H LABS Laboratory Tests 2 01/30/21 04:38: Immature Granulocyte % (Auto) 0.8, Neutrophils (%) (Auto) 68.8H, Lymphocytes (%) (Auto) 15.3L, Monocytes (%) (Auto) 14.7H, Eosinophils (%) (Auto) 0.2, Basophils (%) (Auto) 0.2, Neutrophils # (Auto) 9.0H, Lymphocytes # (Auto) 2.0, Monocytes # (Auto) 1.9H, Eosinophils # (Auto) 0.0, Basophils # (Auto) 0.0, Nucleated Red Blood Cells % (auto) 0.0, Anion Gap 8, Glomerular Filtration Rate > 60.0, Calcium Level 9.1, Magnesium Level 1.7L CBC/BMP Laboratory Tests 01/30/21 04:38 JOSE FUNES MD January 30, 2021 09:53
[2021-01-30 10:26] VITALS: BP 130/84
[2021-01-30] MEDS ORDERED: amLODIPine 5 MG TAB PO ONE (11:00)
[2021-01-30] MEDS ORDERED: PERCOCET PO (11:25)
--- NOTE | 2021-01-30 11:34 | DS.PDOC ---
Discharge Summary General Date of Admission January 28, 2021 at 11:54 Date of Discharge 01/30/21 Discharge Summary PROCEDURES PERFORMED DURING STAY: 01/28/21: Angioplasty left superficial femoral artery and proximal popliteal artery was 6 x 200 [place] balloon Cross chronic total occlusions left anterior tibial artery, left posterior tibial artery, left peroneal artery and angioplasty with 2.5 x 220 and 2 x 220 [place] balloons Multiple repeat angioplasties of left anterior tibial artery, left posterior tibial artery, left peroneal artery with 2.5 x 220 and 2 x 220 [place] balloons 01/28/21: Left above knee amputation DISCHARGE DIAGNOSES: Acute on Chronic left leg ischemia needing Left AKA. SECONDARY DIAGNOSIS: IgA Nephropathy ESRD since 1999 s/p renal transplant in 2006 Renal stone in transplanted kidney seen 3 months after transplant with reccurent pyelonephritis in transplanted kidney Ureteric stone in aug 2019 causing obs of transplanted kidney requiring Perc nephrostomy tube into the transplanted kidney, removed in March 2020. Recurrent UTIs from 2018 CAD s/p stents x 6 last in (03/19/2020) Severe Aortic stenosis planned for TAVR Atrial fibrillation (on Coumadin) Chronic HTN Neuropathy Iron deficiency anemia Hypomagnesemia hypophosphatemia secondary hyperparathyroidism. Osteoporosis GERD Hernia surgeries Multiple spinal surgeries Neck surgeries with collar status post thoracolumbar fusion, bilateral nephrectomies, ventral hernia repair Epigastric hernia transmitting small bowel Incarcerated Left inguinal hernia s/p open hernia surgery repair with mesh aug 2020 Laparoscopy and robotic assisted laparoscopy with extensive lysis of adhesions with sigmoid colotomy, repair of colotomy and irrigation of the abdomen in aug 2020 COMPLICATIONS/CHIEF COMPLAINT: Atherosclerosis. HOSPITAL COURSE: This is a very pleasant 76-year-old gentleman with multiple me dical problems and a long-standing history of atherosclerosis of the [place] arteries who over the past 2 months has had progressively worse to rest pain in the left foot, and developed ulcerations between the fourth and fifth toe and at the base of the fourth and fifth toes on the plantar surface. He saw Dr. Monique who ordered an arterial study and the patient was appropriately referred to Vascular for revascularization. Angiography of the left leg by Dr Alex showed blockages in the SFA and Popliteal artery. Had successful Angioplasty left superficial femoral artery and proximal popliteal artery. He also had chronic total occlusions left anterior tibial artery, left posterior tibial ar liam, left peroneal artery. Tried Multiple repeat angioplasties of left anterior tibial artery, left posterior tibial artery, left peroneal artery which were unfortunately successful. So the patient was admitted for above knee amputation for acute left leg ischemia. Acute on Chronic left leg ischemia with non healing ulcer in the foot. all 3 arteries below the knee were blocked unsuccessful angioplasties and had emergent left AKA on 01/28/21 Coumadin restarted Chronic Afib cont Digoxin and coumadin H/o Nephrolithiasis in transplanted kidney and ureteric stone and ureteric stricture s/p perc nephrostomy tube in the transplanted kidney removed in march 2020 patient reports that the transplant kidney has stones from the beginning. He has in fact found out that the other kidney from the same person which went to another person also has stones CAD: s/p stent 03/19/20. Cont ASA and coumadin Chronic anemia iron deficiency. IgA Nephropathy/ ESRD since 1999 s/p R renal transplant 2006 C/w azathioprine, sirolimus, prednisone calcitriol, Hypomagnesemia: magnesium PO and Amiloride May have to increase oral magnesium dose. Usually takes 6 tabs bid. Secondary hyperparathyroidism: Calcitriol Chronic Hypophosphatemia continue nutraphos. HTN amlodipine, amiloride, torsemide Aortic Stenosis Was planned for a TAVR next week. Neuropathy: Gabapentin , cymbalta, percocet Chronic constipation bowel regimen. Chronic back pain and neck pain with significant degenerative spine changes, status post reconstructive surgery. The patient remains on chronic pain medications and seems to be doing at about his baseline. Uses a soft collar. Gabapentin , cymbalta, percocet DISCHARGE MEDICATIONS: Please see below. ALLERGIES: Please see below. PHYSICAL EXAMINATION ON DISCHARGE: VITAL SIGNS: Please see below. General Exam: Positive: Alert, Cooperative, No Acute Distress Eye Exam: Positive: PERRLA, Conjunctiva & lids normal, EOMI; Negative: Sclera icteric ENT Exam: Positive: Atraumatic, Mucous membr. moist/pink, Pharynx Normal Neck Exam: Positive: Supple; Negative: JVD, thyromegaly Chest Exam: Positive: Clear to auscultation, Normal air movement Heart Exam: Positive: Rate Normal, Irregular Rhythm, Normal S1, Normal S2, Murmurs (systolic); Negative: Rubs Abdomen Exam: Positive: Normal bowel sounds, Soft; Negative: Tenderness Extremity Exam: Positive: Other (left AKA in surgical dressing) Skin Exam: Positive: Other skin issue (right leg warm and slightly red in front of the ramos. toes are cool but no mottling. ) Neuro Exam: Positive: Normal Speech Psych Exam: Positive: Memory Intact, Oriented x 3 LABORATORY DATA: Please see below. ACTIVITY: As per PT and OT DIET: High protein DISCHARGE PLAN: ARU DISCHARGE CONDITION: [Stable]. TIME SPENT ON DISCHARGE: 35 minutes. Vital Signs/I&Os Vital Signs Date Time Temp Pulse Resp B/P (MAP) Pulse Ox O2 Delivery O2 Flow Rate FiO2 01/30/21 10:26 97 130/84 01/30/21 08:30 22 01/30/21 07:46 99.0 96 Room Air 01/29/21 15:54 2.0 I&O- Last 24 Hours up to 6 AM 01/30/21 06:00 Intake Total 0 ml Output Total 1350 ml Balance -1350 ml Laboratory Data Labs 24H Laboratory Tests 2 01/30/21 04:38: Immature Granulocyte % (Auto) 0.8, Neutrophils (%) (Auto) 68.8H, Lymphocytes (%) (Auto) 15.3L, Monocytes (%) (Auto) 14.7H, Eosinophils (%) (Auto) 0.2, Basophils (%) (Auto) 0.2, Neutrophils # (Auto) 9.0H, Lymphocytes # (Auto) 2.0, Monocytes # (Auto) 1.9H, Eosinophils # (Auto) 0.0, Basophils # (Auto) 0.0, Nucleated Red Blood Cells % (auto) 0.0, Anion Gap 8, Glomerular Filtration Rate > 60.0, Calcium Level 9.1, Magnesium Level 1.7L CBC/BMP Laboratory Tests 01/30/21 04:38 Discharge Medications Scheduled Amiloride HCl (Amiloride HCl) 5 Mg Tablet, 5 MG PO DAILY, (Reported) Aspirin (Ecotrin) 81 Mg Tablet.dr, 81 MG PO DAILY, (Reported) Azathioprine (Azathioprine) 50 Mg Tablet, 100 MG PO DAILY, (Reported) Calcitriol (Calcitriol) 0.25 Mcg Cap, 0.25 MCG PO 3XW, (Reported) MON-WED-TUE Cinacalcet HCl (Cinacalcet HCl) 30 Mg Tablet, 30 MG PO 3XW, (Reported) TUES/THURS/SAT Digoxin (Digoxin) 125 Mcg Tablet, 0.125 MCG PO DAILY, (Reported) Gabapentin (Gabapentin) 300 Mg Capsule, 600 MG PO TID, (Reported) Magnesium Gluconate (Mag-G) 27 Mg Tablet, 6 TAB PO BID, (Reported) Oxycodone HCl/Acetaminophen (Oxycodon-Acetaminophen 7.5-325) 1 Each Tablet, 1 TAB PO Q8H, (Reported) Potassium Chloride (Potassium Chloride) 10 Meq Tablet.er, 10 MEQ PO BID, (Reported) Prednisone (Prednisone) 5 Mg Tab, 5 MG PO DAILY, (Reported) Sirolimus (Rapamune) 1 Mg Tablet, 2 MG PO DAILY, (Reported) Sod Phos Di, [place]/K Phos [place] (Virt-Phos 250 Neutral Tablet) 1 Tab Tab, 2 TAB PO BID, (Reported) Torsemide (Torsemide) 20 Mg Tablet, 40 MG PO BID, (Reported) Vitamin B Complex Vit C No.3 (B Complex with Vitamin C) 1 Cap Cap, 1 CAP PO DAILY, (Reported) Warfarin Sodium (Warfarin Sodium) 3 Mg Tablet, 3 MG PO QPM, (Reported) Scheduled PRN Acetaminophen (Acetaminophen) 325 Mg Tablet, 650 MG PO Q4H PRN for PAIN, (Reported) Cyclobenzaprine HCl (Cyclobenzaprine HCl) 10 Mg Tablet, 10 MG PO BID PRN for MUSCLE SPASMS, (Reported) Diazepam (Diazepam) 2 Mg Tablet, 2 MG PO TID PRN for ANXIETY, (Reported) Docusate Sodium (Docusate Sodium) 100 Mg Capsule, 100 MG PO DAILY PRN for CONSTIPATION, (Reported) Hydroxyzine HCl (Hydroxyzine HCl) 25 Mg Tablet, 50 MG PO QHS PRN for INSOMNIA, (Reported) Lidocaine (Lidoderm) 5% Adh..patch, 1 PATCH TOP DAILY PRN for PAIN, (Reported) APPLY TO BACK 12HR ON, 12HR OFF, APPLIES TO MIDDLE OF BACK Methyl Salicylate/Menthol (Icy Hot Cream) 35.4 Gm Cream..g., 1 APLCT TOP DAILY PRN for BACK PAIN, (Reported) Ondansetron HCl (Zofran) 4 Mg Tablet, 4 MG PO TID PRN for NAUSEA OR VOMITING, (Reported) Oxycodone/Acetaminophen (Oxycodone-Acetaminophen 5-325) 1 Each Tablet, 1-2 TAB PO Q4HP PRN for PAIN Polyethylene Glycol 3350 (Miralax) 119 Gm Powder, 17 GRAM PO QHS PRN for CONSTIP ATION, (Reported) DISSOLVE IN WATER OR JUICE Allergies Coded Allergies: Quinolones (Verified Allergy, Unknown, 01/07/21) oxybutynin (Verified Allergy, Unknown, 01/07/21) tamsulosin (Verified Allergy, Unknown, 01/07/21) ciprofloxacin (Verified Adverse Reaction, Intermediate, HEART RACES, 01/07/21) levofloxacin (Verified Adverse Reaction, Intermediate, HEART RACES, 01/07/21) amoxicillin (Verified Adverse Reaction, Mild, can take few prior to dentist but can not take for 10 days, 01/07/21) cefuroxime (Verified Adverse Reaction, Mild, ANXIETY, 01/07/21) codeine (Verified Adverse Reaction, Mild, AGITATION, 01/07/21) doxycycline (Verified Adverse Reaction, Mild, UPSET STOMACH, 01/07/21) lorazepam (Verified Adverse Reaction, Mild, AGITATION, 01/07/21) pregabalin (Verified Adverse Reaction, Mild, ANXIETY, DROWSINESS, 01/07/21) tizanidine (Verified Adverse Reaction, Unknown, 01/07/21) JOSE FUNES MD January 30, 2021 11:34
[2021-01-31] MEDS ORDERED: amLODIPine 5 MG TAB PO SCH (09:00)
== END 2021-01-30 16:13 | DRG 240 ==
LOC: M IRPRO 06:36 → M ED INP 11:54 → M PCU 18:00
PROVIDERS: ADMIT Internal Medicine Nephrology; ATTEND Internal Medicine Nephrology
PROC: 047L3Z1 Dilation of Left Femoral Artery using Drug-Coated Balloon, Percutaneous Approach (ICD-10-PCS; 2021-01-28)
PROC: 047N3Z1 Dilation of Left Popliteal Artery using Drug-Coated Balloon, Percutaneous Approach (ICD-10-PCS; 2021-01-28)
PROC: 047Q3Z1 Dilation of Left Anterior Tibial Artery using Drug-Coated Balloon, Percutaneous Approach (ICD-10-PCS; 2021-01-28)
PROC: 047S3Z1 Dilation of Left Posterior Tibial Artery using Drug-Coated Balloon, Percutaneous Approach (ICD-10-PCS; 2021-01-28)
PROC: 047U3Z1 Dilation of Left Peroneal Artery using Drug-Coated Balloon, Percutaneous Approach (ICD-10-PCS; 2021-01-28)
PROC: 0Y6D0Z3 Detachment at Left Upper Leg, Low, Open Approach (ICD-10-PCS; principal; 2021-01-28 07:30)
DX: I70.222 Atherosclerosis of native arteries of extremities with rest pain, left leg (principal); N25.81 Secondary hyperparathyroidism of renal origin; Z94.0 Kidney transplant status; I48.20 Chronic atrial fibrillation, unspecified; I70.245 Atherosclerosis of native arteries of left leg with ulceration of other part of foot; I10 Essential (primary) hypertension; D50.9 Iron deficiency anemia, unspecified; E83.42 Hypomagnesemia; K21.9 Gastro-esophageal reflux disease without esophagitis; E83.39 Other disorders of phosphorus metabolism; Z87.442 Personal history of urinary calculi; Z95.2 Presence of prosthetic heart valve; I25.10 Atherosclerotic heart disease of native coronary artery without angina pectoris; Z79.01 Long term (current) use of anticoagulants; G62.9 Polyneuropathy, unspecified; M81.0 Age-related osteoporosis without current pathological fracture; I35.0 Nonrheumatic aortic (valve) stenosis; Z79.82 Long term (current) use of aspirin; Z79.899 Other long term (current) drug therapy; Z88.8 Allergy status to other drugs, medicaments and biological substances; K59.00 Constipation, unspecified

== ENCOUNTER 2021-01-30 12:08 | Inpatient (IN) | payer MEDICARE ==
[~2021-01-30] VITALS: Ht 177.8 cm; Wt 63.4 kg
--- NOTE | 2021-01-30 13:21 | HPEPDOC ---
Senior Lead Software Engineer Note DATE OF ADMISSION: 01-30-21 DATE OF SERVICE: 01-30-21 TIME OF ADMISSION: Please refer to physician's admission order. SOURCE OF ADMISSION INFORMATION: [facility] record and patient CHIEF COMPLAINT: left AKA HISTORY OF PRESENT ILLNESS: 76M pmh IgA Nephropathy s/p bilat nephrectomies with kidney transplant complicated by nephrolithiasis and ureteral stones/strictures, CAD s/p stents, chronic Afib on warfarin, chronic neck pain s/p reconstructive surgery, aortic s tenosis with plan for TAVR, HTN, PAD with left foot ulcers followed by Dr. Monique and Dr. Ortez. He underwent multiple angioplasties that failed and underwent a left sided AKA on 01-28-21 with post-op anemia, leukocytosis, and pain. He was restarted on Coumadin, evaluated by therapy and noted to have new mobility and ADL impairments and deemed medically appropriate for discharge to ARU on 01-30-21. REVIEW OF SYSTEMS: The following is a completed review of systems and has been reviewed. Review of systems otherwise unremarkable. PAIN: Patient self reports left AKA pain and chronic neck pain EYES: No recent vision changes EARS, NOSE, & THROAT: No throat pain, or dysphagia, or rhinorrhea CARDIOVASCULAR: Denies chest pain or palpitations PULMONARY: Denies shortness of breath GASTROINTESTINAL: Denies constipation/diarrhea GENITOURINARY: denies dysuria MUSCULOSKELETAL: s/p left AKA NEUROLOGICAL: denies tremor HEMATOLOGICAL: +anemia SKIN: left aka PSYCHIATRIC: Unremarkable All other review of systems found to be negative. PAST MEDICAL HISTORY: as per HPI PAST SURGICAL HISTORY: as per hpi and ventral hernia repair, Laparoscopy and robotic assisted laparoscopy with extensive lysis of adhesions with sigmoid colotomy, repair of colotomy and irrigation of the abdomen in aug 2020, thoracolumbar fusion ALLERGIES: Please see below. MEDICATIONS: Please see below. SOCIAL HISTORY: no etoh/smoking/illicit drugs DIET: low sodium PHYSICAL EXAMINATION: VITAL SIGNS: Please see below. GENERAL: Pleasant and cooperative. No acute distress. HEENT: PERRL. Extraocular movements intact. Clear conjunctiva CARDIOVASCULAR: irregular rate and rhythm. +systolic murmurs, rubs, or gallops LUNGS: Clear to auscultation bilaterally. No wheezes. No rhonchi ABDOMEN: Soft, nontender, nondistended. Positive bowel sounds. Normal active bowel sounds NEUROLOGICAL: Alert and oriented times three. Cranial nerves II through XII grossly intact. Sensation grossly intact EXTREMITIES: 5-\5 strength bilateral upper extremities. 5-\5 strength right lower extremity. left hip flexor 4/5 RUE edema>LUE RLE edema (with mild erythema non-tender to palpation) SKIN: left AKA with ecchymosis and scant sanguinous drainage no induration LABORATORY DATA: Please see below. IMAGING: Imaging documentation personally reviewed by record FUNCTIONAL STATUS: Premorbid: Mod-Independent with all activities of daily life as well as mobility On Admission: Min assist for bed mobility, dressing, toileting, functional transfers GOALS: Mod-I for bed mobility, dressing, toileting, bed mobility, functional transfers, wheelchair ASSESSMENT:76-year-old M with past medical history of IgA nephropathy s/p bilat nephrectomy with transplant, Afib, Aortic stenosis who presents status post left BKA PLAN: 1. Rehab- PT/OT advance mobility and ADLs, strengthen/stretch/maintain ROM all 4limbs, teach limb care 2. Ortho hx of chronic neck pain with multiple surgeries- soft cervical collar, gabapentin, flexeril, amd oxycodone 3. Vasc- sp left AKA on 01-28-21, monitor for infection, daily dressings, serial CRP/ESR- f/u Dr. Ortez 4. CArdiac- hx of Afib on coumadin and digoxin daily INRs -Aortic stenosis will need to reschedule TAVR- c/u amiloride and torsemide - CAD- on ASA -HTN c/u amlodipine 5. Resp- monitor for infection 6. Renal- IgA nephropathy s/p renal transplant- c/u imuran, sirolimus, and prednisone-will consult renal -c/u magnesium and phosphate supplement for hypomagnesemia and hypophosphatemia -calcitriol and Sensipar 7. DVT ppx- on coumadin 8. GI ppx- protonix 9. Pain- tylenol, flexeril, oxycodone, gabapentin 10. Psych- insomnia- atarax 11. DIspo- tbd POST ADMISSION PHYSICIAN EVALUATION: Medical and functional status: Description of medical status, medical assessment: As above. Rehabilitation diagnosis and current and prior cold morbid medical conditions as above. Risk of complications and plans to mitigate them as above. Description of functional status current status is as above. Prior status as above. Status compared to preadmission: There are no clinically significant differences between the patient's current status and the information described on the preadmission screening document. Treatment plan anticipated: Treatment plan is as described above. Required disciplines including physical therapy, occupational therapy, others as noted above Intensity of services: 3 hours a day, 6 days a week. Special considerations: There are no specific special or safety considerations that would likely preclude immediate implementation of an intensive rehabilitation program or subsequently influence the plan of care. ATTESTATION: Considering all the information above, it is my best judgment that this patient requires intensive rehabilitation therapy as described above and an inpatient hospital environment due to the complexity of nursing, medical, and rehabilitation needs required by the patient. Furthermore, this patient can reasonably be expected to participate in an benefit from an inpatient rehabilitation stay with an interdisciplinary team approach to the delivery of rehabilitation care under the direction and supervision of rehabilitation physician. PROGNOSIS: fair ESTIMATED LENGTH OF STAY:12-14 days. PROJECTED DISCHARGE DESTINATION: Home with family support and any durable medical equipment required to increase functional safety and mobility. TIME SPENT COUNSELING AND COORDINATING INITIAL CARE: Greater than 70 minutes. Vital Signs Vital Signs Date Time Temp Pulse Resp B/P (MAP) Pulse Ox O2 Delivery O2 Flow Rate FiO2 01/30/21 16:15 98.6 94 18 179/89 (119) 97 Room Air Home Medications Scheduled Amiloride HCl (Amiloride HCl) 5 Mg Tablet, 5 MG PO DAILY, (Reported) Aspirin (Ecotrin) 81 Mg Tablet.dr, 81 MG PO DAILY, (Reported) Azathioprine (Azathioprine) 50 Mg Tablet, 100 MG PO DAILY, (Reported) Calcitriol (Calcitriol) 0.25 Mcg Cap, 0.25 MCG PO 3XW, (Reported) TUE-TUE-TUE Cinacalcet HCl (Cinacalcet HCl) 30 Mg Tablet, 30 MG PO 3XW, (Reported) TU/TH/SAT Digoxin (Digoxin) 125 Mcg Tablet, 0.125 MCG PO DAILY, (Reported) Gabapentin (Gabapentin) 300 Mg Capsule, 600 MG PO TID, (Reported) Magnesium Gluconate (Mag-G) 27 Mg Tablet, 6 TAB PO BID, (Reported) Oxycodone HCl/Acetaminophen (Oxycodon-Acetaminophen 7.5-325) 1 Each Tablet, 1 TAB PO Q8H, (Reported) Potassium Chloride (Potassium Chloride) 10 Meq Tablet.er, 10 MEQ PO BID, (Reported) Prednisone (Prednisone) 5 Mg Tab, 5 MG PO DAILY, (Reported) Sirolimus (Rapamune) 1 Mg Tablet, 2 MG PO DAILY, (Reported) Sod Phos Di, [place]/K Phos [place] (Virt-Phos 250 Neutral Tablet) 1 Tab Tab, 2 TAB PO BID, (Reported) Torsemide (Torsemide) 20 Mg Tablet, 40 MG PO BID, (Reported) Vitamin B Complex Vit C No.3 (B Complex with Vitamin C) 1 Cap Cap, 1 CAP PO DAILY, (Reported) Warfarin Sodium (Warfarin Sodium) 3 Mg Tablet, 3 MG PO QPM, (Reported) Scheduled PRN Acetaminophen (Acetaminophen) 325 Mg Tablet, 650 MG PO Q4H PRN for PAIN, (Reported) Cyclobenzaprine HCl (Cyclobenzaprine HCl) 10 Mg Tablet, 10 MG PO BID PRN for MUSCLE SPASMS, (Reported) Diazepam (Diazepam) 2 Mg Tablet, 2 MG PO TID PRN for ANXIETY, (Reported) Docusate Sodium (Docusate Sodium) 100 Mg Capsule, 100 MG PO DAILY PRN for CONSTIPATION, (Reported) Hydroxyzine HCl (Hydroxyzine HCl) 25 Mg Tablet, 50 MG PO QHS PRN for INSOMNIA, (Reported) Lidocaine (Lidoderm) 5% Adh..patch, 1 PATCH TOP DAILY PRN for PAIN, (Reported) APPLY TO BACK 12HR ON, 12HR OFF, APPLIES TO MIDDLE OF BACK Methyl Salicylate/Menthol (Icy Hot Cream) 35.4 Gm Cream..g., 1 APLCT TOP DAILY PRN for BACK PAIN, (Reported) Ondansetron HCl (Zofran) 4 Mg Tablet, 4 MG PO TID PRN for NAUSEA OR VOMITING, (Reported) Oxycodone/Acetaminophen (Oxycodone-Acetaminophen 5-325) 1 Each Tablet, 1-2 TAB PO Q4HP PRN for PAIN Polyethylene Glycol 3350 (Miralax) 119 Gm Powder, 17 GRAM PO QHS PRN for CONSTI PATION, (Reported) DISSOLVE IN WATER OR JUICE Allergies Coded Allergies: Quinolones (Verified Allergy, Unknown, 01/07/21) oxybutynin (Verified Allergy, Unknown, 01/07/21) tamsulosin (Verified Allergy, Unknown, 01/07/21) ciprofloxacin (Verified Adverse Reaction, Intermediate, HEART RACES, 01/07/21) levofloxacin (Verified Adverse Reaction, Intermediate, HEART RACES, 01/07/21) amoxicillin (Verified Adverse Reaction, Mild, can take few prior to dentist but can not take for 10 days, 01/07/21) cefuroxime (Verified Adverse Reaction, Mild, ANXIETY, 01/07/21) codeine (Verified Adverse Reaction, Mild, AGITATION, 01/07/21) doxycycline (Verified Adverse Reaction, Mild, UPSET STOMACH, 01/07/21) lorazepam (Verified Adverse Reaction, Mild, AGITATION, 01/07/21) pregabalin (Verified Adverse Reaction, Mild, ANXIETY, DROWSINESS, 01/07/21) tizanidine (Verified Adverse Reaction, Unknown, 01/07/21) A-FIB/CHADSVASC A-FIB History Current/History of A-Fib/PAF?: Yes Current PO Anticoag Therapy: Yes FARHAN LAMAR MD January 30, 2021 13:21
[2021-01-30] MEDS: REMEDY PHYTOPLEX Z-GUARD PASTE 113GM TUBE (FROM STOREROOM PRODUCT) TOP SCH ×2 (16:00→20:14)
[2021-01-30 16:15] VITALS: BP 179/89
[2021-01-30] MEDS ORDERED: WARFARIN SOD 3MG TAB PO SCH (17:00)
[2021-01-30] MEDS: GABAPENTIN 300 MG CAP PO SCH ×2 (18:18→20:12)
[2021-01-30] MEDS: ACETAMINOPHEN 500 MG TAB PO SCH ×2 (18:19→20:13)
[2021-01-30] MEDS: TORSEMIDE 20 MG TAB PO SCH (18:19)
[2021-01-30 20:00] VITALS: BP 132/86
[2021-01-30] MEDS: DOCUSATE SODIUM 100MG CAPSULE PO SCH (20:12)
[2021-01-30] MEDS: POTASSIUM CHLORIDE 10 MEQ SR TABLET PO SCH (20:13)
[2021-01-30] MEDS: SENNA 8.6 MG TAB (SENOKOT) PO SCH (20:13)
[2021-01-30] MEDS: oxyCODONE 5MG TAB PO PRN (20:14)
[2021-01-30] MEDS: K-PHOS ORIGINAL (POT.ACID PHOSPHATE) 500MG TAB PO SCH (21:38)
[2021-01-30] MEDS: MAGNESIUM GLUCONATE 500 MG TAB PO SCH (21:39)
[2021-01-30] MEDS: hydrOXYzine 50 MG TAB PO PRN (21:39)
[2021-01-31] MEDS: oxyCODONE 5MG TAB PO PRN ×5 (00:22→21:12)
[2021-01-31 05:50] VITALS: BP 166/79
[2021-01-31 06:57] LABS: BASO % 0.1 % (0.0-1.0); EOS # 0.1 10^3/uL (0.0-0.5); EOS % 0.4 % (0.0-3.0); HEMATOCRIT 34.8 % (42.0-52.0); HEMOGLOBIN 10.8 g/dl (13.5-17.5); LYMPH # 1.7 10^3/uL (1.5-5.0); LYMPH % 12.1 % (24.0-44.0); MEAN CORPUSCULAR HEMOGLOBIN 29.2 pg (27.0-33.0); MEAN CORPUSCULAR VOLUME 94.1 fl (80.0-96.0); MONO # 1.8 10^3/uL (0.0-0.8); MONO % 12.8 % (2.0-8.0); NEUTROPHILS # 10.1 10^3/uL (1.5-8.5); NEUTROPHILS % 73.6 % (36.0-66.0); PLATELET COUNT, AUTOMATED 224 10^3/uL (150-450)
[2021-01-31 07:06] LABS: WHITE BLOOD COUNT 13.8 10^3/uL (4.0-10.0)
[2021-01-31 07:07] LABS: INR 2.93; PROTHROMBIN TIME 31.2 SECONDS (12.5-14.3)
[2021-01-31 07:40] LABS: ALBUMIN 2.7 GM/DL (3.2-5.2); ALT/SGPT 26 U/L (12-78); BLOOD UREA NITROGEN 16 MG/DL (7-18); CALCIUM LEVEL 9.5 MG/DL (8.8-10.2); CARBON DIOXIDE LEVEL 26 MEQ/L (21-32); CHLORIDE LEVEL 106 MEQ/L (98-107); CREATININE FOR GFR 0.65 MG/DL (0.70-1.30); GLOMERULAR FILTRATION RATE > 60.0 (>42); GLUCOSE, FASTING 112 MG/DL (70-100); POTASSIUM SERUM 4.4 MEQ/L (3.5-5.1); SODIUM LEVEL 139 MEQ/L (136-145); TOTAL PROTEIN 6.5 GM/DL (6.4-8.2)
[2021-01-31 07:57] LABS: ERYTHROCYTE SEDIMENTATION RATE 105 mm/hr (0-20)
[2021-01-31] MEDS ORDERED: TACROLIMUS 1 MG CAP (J7507) PO SCH (09:00)
[2021-01-31] MEDS ORDERED: amLODIPine 5 MG TAB PO SCH (09:00)
[2021-01-31] MEDS: K-PHOS ORIGINAL (POT.ACID PHOSPHATE) 500MG TAB PO SCH ×2 (09:47→21:12)
[2021-01-31] MEDS: SIROLIMUS 1 MG TAB (RAPAMUNE) PO SCH (09:47)
[2021-01-31] MEDS: MAGNESIUM GLUCONATE 500 MG TAB PO SCH ×2 (09:47→21:11)
[2021-01-31] MEDS: predniSONE 5 MG TAB PO SCH (09:48)
[2021-01-31] MEDS: CINACALCET 30 MG TAB (SENSIPAR) PO SCH (09:48)
[2021-01-31] MEDS: PANTOPRAZOLE 40MG TAB (PROTONIX) PO SCH (09:48)
[2021-01-31] MEDS: GABAPENTIN 300 MG CAP PO SCH ×3 (09:48→21:10)
[2021-01-31] MEDS: POTASSIUM CHLORIDE 10 MEQ SR TABLET PO SCH ×2 (09:48→21:10)
[2021-01-31] MEDS: DOCUSATE SODIUM 100MG CAPSULE PO SCH ×2 (09:48→21:12)
[2021-01-31] MEDS: TORSEMIDE 20 MG TAB PO SCH ×2 (09:48→16:17)
[2021-01-31] MEDS: ASPIRIN 81MG ENTERIC TABLET PO SCH (09:48)
[2021-01-31] MEDS: VITAMIN B COMPLEX/VIT C CAP PO SCH (09:48)
[2021-01-31] MEDS: ACETAMINOPHEN 500 MG TAB PO SCH ×3 (09:49→21:11)
[2021-01-31] MEDS: REMEDY PHYTOPLEX Z-GUARD PASTE 113GM TUBE (FROM STOREROOM PRODUCT) TOP SCH ×3 (09:50→21:00)
[2021-01-31] MEDS: aMILoride 5 MG TAB PO SCH (09:50)
[2021-01-31] MEDS: DIGOXIN 0.125 MG TAB PO SCH (09:55)
--- NOTE | 2021-01-31 10:18 | IPNPDOC ---
Subjective Date Seen The patient was seen on 01/31/21. Subjective Chief Complaint/HPI Patient appears more motivated today. He is working with PT and PT. Left AKA in surgical dressing . Objective Physical Examination General Exam: Positive: Alert, Cooperative, No Acute Distress Eye Exam: Positive: PERRLA, Conjunctiva & lids normal, EOMI; Negative: Sclera icteric ENT Exam: Positive: Atraumatic, Mucous membr. moist/pink, Pharynx Normal Neck Exam: Positive: Supple; Negative: JVD, thyromegaly Chest Exam: Positive: Clear to auscultation, Normal air movement Heart Exam: Positive: Rate Normal, Regular Rhythm, Normal S1, Normal S2; Negative: Murmurs, Rubs Abdomen Exam: Positive: Normal bowel sounds, Soft; Negative: Tenderness, Hepatospenomegaly Extremity Exam: Positive: Other (Left AKA); Negative: Clubbing, Cyanosis, Edema Assessment /Plan Assessment This is a very pleasant 76-year-old gentleman with multiple medical problems and a long-standing history of atherosclerosis of the [place] arteries who over the past 2 months has had progressively worse to rest pain in the left foot, and developed ulcerations between the fourth and fifth toe and at the base of the fourth and fifth toes on the plantar surface. He saw Dr. Monique who ordered an arterial study and the patient was appropriately referred to Vascular for revascularization. Angiography of the left leg by Dr Alex showed blockages in the SFA and Popliteal artery. Had successful Angioplasty left superficial femoral artery and proximal popliteal artery. He also had chronic total occlusions left anterior tibial artery, left posterior tibial artery, left peroneal artery. Tried Multiple repeat angioplasties of left anterior tibial artery, left posterior tibial artery, left peroneal artery which were unfortunately successful. So the patient was admitted for above knee amputation for acute left leg ischemia. He is s/p AKA on 01/28/21 nor in ARU getting acute rehab. Acute on Chronic left leg ischemia unsuccessful angioplasties and had emergent left AKA on 01/28/21 Pt/OT as per ARU Chronic Afib cont Digoxin and coumadin INR jumped form 1.4 to 2.9 today will hold coumadin today. H/o Nephrolithiasis in transplanted kidney and ureteric stone and ureteric stricture s/p perc nephrostomy tube in the transplanted kidney removed in march 2020 Now no issues. Consult nephrology prn. CAD: s/p stent 03/19/20. Cont ASA and coumadin Chronic anemia iron deficiency. IgA Nephropathy/ ESRD since 1999 s/p R renal transplant 2006 C/w azathioprine, sirolimus, prednisone calcitriol, consult nephrology prn Hypomagnesemia: magnesium PO and Amiloride Secondary hyperparathyroidism: Calcitriol Chronic Hypophosphatemia continue nutraphos. HTN amlodipine, amiloride, torsemide Aortic Stenosis Was planned for a TAVR in January 2021 Neuropathy: Gabapentin , cymbalta, percocet Chronic constipation bowel regimen. Chronic back pain and neck pain with significant degenerative spine changes, status post reconstructive surgery. Gabapentin , cymbalta, percocet Plan/VTE VTE Prophylaxis Ordered?: Yes VS, I&O, 24H, Fishbone Vital Signs/I&O Vital Signs Date Time Temp Pulse Resp B/P (MAP) Pulse Ox O2 Delivery O2 Flow Rate FiO2 01/31/21 09:55 110 01/31/21 09:53 163/101 01/31/21 05:50 99.1 20 96 Room Air I&O- Last 24 Hours up to 6 AM 01/31/21 06:00 Intake Total 100 ml Output Total 600 ml Balance -500 ml Laboratory Data 24H LABS Laboratory Tests 2 01/31/21 06:44: Immature Granulocyte % (Auto) 1.0, Neutrophils (%) (Auto) 73.6H, Lymphocytes (%) (Auto) 12.1L, Monocytes (%) (Auto) 12.8H, Eosinophils (%) (Auto) 0.4, Basophils (%) (Auto) 0.1, Neutrophils # (Auto) 10.1H, Lymphocytes # (Auto) 1.7, Monocytes # (Auto) 1.8H, Eosinophils # (Auto) 0.1, Basophils # (Auto) 0.0, Nucleated Red Blood Cells % (auto) 0.0, Erythrocyte Sedimentation Rate 105H, Prothrombin Time 31.2H, Prothromb Time International Ratio 2.93, Anion Gap 7L, Glomerular Filtration Rate > 60.0, Calcium Level 9.5, Total Bilirubin 1.0, Aspartate Amino Transf (AST/SGOT) 105H, Alanine Aminotransferase (ALT/SGPT) 26, Alkaline Phosphatase 116, C-Reactive Protein, Quantitative 25.20H, Total Protein 6.5, Albumin 2.7L, Albumin/Globulin Ratio 0.7 CBC/BMP Laboratory Tests 01/31/21 06:44 JOSE FUNES MD January 31, 2021 10:18
[2021-01-31] MEDS ORDERED: ONDANSETRON 4 MG ORAL DISINTEGRATING TAB SL PRN (13:55)
[2021-01-31 14:00] VITALS: BP 180/108
[2021-01-31 16:15] VITALS: BP 162/92
[2021-01-31] MEDS: WARFARIN SOD 2MG TAB PO SCH (16:17)
--- NOTE | 2021-01-31 18:27 | IPNPDOC ---
Date Seen The patient was seen on 01/31/21. Progress Note Patient seen and examined postop day 3 status post left above-knee amputation. He is doing fairly well today, and says his pain is a little better controlled this afternoon. He has had some problems with pain, and takes narcotics at home, but the hospitalist has made adjustments appropriately. On exam, the left AKA stump is clean dry and intact. I thoroughly cleaned incision. There is minimal d ried blood along the skin edge. Stable since sutures are intact. We still note a little bit of bruising along the skin edges as well as on the posterior stump, but it looks a little better today than yesterday. He is on Coumadin, so some bruising is expected unfortunately. However, we will keep a close eye on this to make sure things are healing well. I've encouraged the patient to continue with a high-protein diet to help with healing. He is being very compliant with elevating the stump when at rest. His is at the bedside today and we had a nice discussion about the patient's progress and all of her questions were answered. We are glad the patient has progressed to rehabilitation and hope he will do very well here. I'm also hopeful that gaining some more strength and working towards more independence will improve his mood a bit. He says he is doing a little better now than he was yesterday. I'm sure this will wax and wane over the coming weeks. We will continue to encourage him daily. We appreciate the opportunity to participate in the care of this patient. VS, I&O, 24H, Fishbone Vital Signs/I&O Vital Signs Date Time Temp Pulse Resp B/P (MAP) Pulse Ox O2 Delivery O2 Flow Rate FiO2 01/31/21 16:15 162/92 (115) 01/31/21 15:35 15 01/31/21 14:00 98.4 103 95 Room Air I&O- Last 24 Hours up to 6 AM 01/31/21 06:00 Intake Total 100 ml Output Total 600 ml Balance -500 ml Laboratory Data 24H LABS Laboratory Tests 2 01/31/21 06:44: Immature Granulocyte % (Auto) 1.0, Neutrophils (%) (Auto) 73.6H, Lymphocytes (%) (Auto) 12.1L, Monocytes (%) (Auto) 12.8H, Eosinophils (%) (Auto) 0.4, Basophils (%) (Auto) 0.1, Neutrophils # (Auto) 10.1H, Lymphocytes # (Auto) 1.7, Monocytes # (Auto) 1.8H, Eosinophils # (Auto) 0.1, Basophils # (Auto) 0.0, Nucleated Red Blood Cells % (auto) 0.0, Erythrocyte Sedimentation Rate 105H, Prothrombin Time 31.2H, Prothromb Time International Ratio 2.93, Anion Gap 7L, Glomerular Filtr ation Rate > 60.0, Calcium Level 9.5, Total Bilirubin 1.0, Aspartate Amino Transf (AST/SGOT) 105H, Alanine Aminotransferase (ALT/SGPT) 26, Alkaline Phosphatase 116, C-Reactive Protein, Quantitative 25.20H, Total Protein 6.5, Albumin 2.7L, Albumin/Globulin Ratio 0.7 CBC/BMP Laboratory Tests 01/31/21 06:44 IVY CASE MD January 31, 2021 18:27
[2021-01-31 20:00] VITALS: BP 122/73
[2021-01-31] MEDS: SENNA 8.6 MG TAB (SENOKOT) PO SCH (21:12)
[2021-02-01] MEDS: oxyCODONE 5MG TAB PO PRN ×4 (01:21→21:23)
[2021-02-01 05:31] VITALS: BP 152/98
[2021-02-01 06:43] LABS: INR 4.71; PROTHROMBIN TIME 45.4 SECONDS (12.5-14.3)
[2021-02-01] MEDS: K-PHOS ORIGINAL (POT.ACID PHOSPHATE) 500MG TAB PO SCH ×2 (08:34→21:21)
[2021-02-01] MEDS: MAGNESIUM GLUCONATE 500 MG TAB PO SCH ×2 (08:34→21:21)
[2021-02-01] MEDS: ASPIRIN 81MG ENTERIC TABLET PO SCH (08:35)
[2021-02-01] MEDS: POTASSIUM CHLORIDE 10 MEQ SR TABLET PO SCH ×2 (08:35→21:22)
[2021-02-01] MEDS: DOCUSATE SODIUM 100MG CAPSULE PO SCH ×2 (08:35→21:21)
[2021-02-01] MEDS: TORSEMIDE 20 MG TAB PO SCH ×2 (08:35→16:30)
[2021-02-01] MEDS: predniSONE 5 MG TAB PO SCH (08:35)
[2021-02-01] MEDS: aMILoride 5 MG TAB PO SCH (08:36)
[2021-02-01] MEDS: GABAPENTIN 300 MG CAP PO SCH ×3 (08:36→21:21)
[2021-02-01] MEDS: VITAMIN B COMPLEX/VIT C CAP PO SCH (08:36)
[2021-02-01] MEDS: PANTOPRAZOLE 40MG TAB (PROTONIX) PO SCH (08:36)
[2021-02-01] MEDS: DIGOXIN 0.125 MG TAB PO SCH (08:36)
[2021-02-01] MEDS: SIROLIMUS 1 MG TAB (RAPAMUNE) PO SCH (08:37)
[2021-02-01] MEDS: ACETAMINOPHEN 500 MG TAB PO SCH ×3 (08:37→21:22)
[2021-02-01] MEDS: REMEDY PHYTOPLEX Z-GUARD PASTE 113GM TUBE (FROM STOREROOM PRODUCT) TOP SCH ×3 (08:38→21:00)
[2021-02-01 14:00] VITALS: BP 151/82
--- NOTE | 2021-02-01 19:05 | CR ---
CONSULTATION DATE: 01/31/2021 REASON FOR CONSULTATION: To assist in the management of chronic kidney disease and kidney transplant. HISTORY OF PRESENT ILLNESS: Mr. Kwon is a 76-year-old gentleman with complicated medical problems. He has known history of end-stage renal disease due to IgA nephropathy status post kidney transplant complicated with nephrolithiasis and ureteral stones. He has history of coronary artery disease and generalized vascular disease with prior coronary angioplasty and stents. He also has history of atrial fibrillation and has been on chronic anticoagulation. Patient has severe aortic stenosis and aortic valve replacement has been in consideration. In the meantime, he developed severe pain in his left foot and had an angioplasty attempted, however it failed to improve the circulation to his foot due to which he underwent amputation of his left lower extremity [id number]. He is now admitted to acute rehabilitation floor for rehabilitation. Nephrology consultation was requested and patient is seen this morning on his bedside. PAST MEDICAL AND SURGICAL HISTORY: Significant for: 1. End-stage renal disease secondary to IgA nephropathy. 2. History of nephrolithiasis. 3. History of atrial fibrillation. 4. History of coronary artery disease, status post angioplasty and stents. 5. History of severe aortic stenosis. 6. History of generalized vascular disease, status post left above-knee amputation (AKA). 7. History of degenerative arthritis and spinal disc disease. He had multiple procedures for reconstruction of his spine. 8. Severe peripheral neuropathy. 9. Diastolic congestive heart failure. 10. Secondary hyperparathyroidism. 11. Hypomagnesemia. Past surgical history is significant for bilateral nephrectomies of [place] kidneys, multiple procedures for arteriovenous (AV) fistulas and grafts prior to transplant when he was on dialysis, kidney transplant, history of nephrostomies and stents due to nephrolithiasis, and history of lithotripsy. He had multiple procedures for reconstruction of his cervical and thoracic lumbar spine. History of abdominal wall hernias repaired in the past, inguinal hernia repair, and now left [id number] amputation. MEDICATIONS: Home medications include: - amiloride 5 mg daily - aspirin 81 mg daily - azathioprine 100 mg daily - calcitriol 0.25 mcg three times a week - Cinacalcet 30 mg three times a week - digoxin 125 mcg daily - gabapentin 600 mg three times a day - magnesium gluconate six tablets twice a day - Percocet 7.5/325 mg every 8 hours as needed for pain - potassium chloride 10 mEq twice a day - prednisone 5 mg daily - sirolimus 2 mg daily - torsemide 40 mg twice a day, which was recently increased - multivitamin one tablet daily - Coumadin 3 mg daily - cyclobenzaprine 10 mg twice a day - diazepam 2 mg three times a day as needed for anxiety - Colace 100 mg as needed for constipation - hydroxyzine 50 mg at bedtime as needed for insomnia - Zofran 4 mg three times a day as needed for nausea ALLERGIES: Patient has multiple drug allergies which include QUINOLONES, TAMSULOSIN, AMOXICILLIN, DOXYCYCLINE, LYRICA, and TIZANIDINE. PERSONAL AND SOCIAL HISTORY: Patient is a former smoker. He lives with his . Denies any alcohol use. FAMILY HISTORY: Negative for end-stage renal disease. REVIEW OF SYSTEMS: Patient denies any headache. No history of strokes. Ears, nose, and throat are unremarkable. Cardiovascular system is significant for atrial fibrillation, congestive heart failure, and severe aortic stenosis. He has coronary artery disease with prior stents but denies any chest pain at present. He was diuresed aggressively recently with improved volume status. Respiratory system is negative for cough and hemoptysis. Gastrointestinal (GI) system is significant for recurrent nausea and poor appetite. Denies any abdominal pain. Genitourinary () system is significant for history of nephrolithiasis and his transplanted kidney. He had a nephrostomy which has been removed. He denies any dysuria or hematuria. Endocrine system is significant for secondary hyperparathyroidism and no history of diabetes or thyroid problems. Hematological system is significant for long-term anticoagulation with Coumadin due to atrial fibrillation. Psychosocial system is significant for anxiety. Neurological system is significant for peripheral neuropathy and spinal degenerative disc disease. PHYSICAL EXAMINATION: Patient is awake and sitting in the chair at the time of my visit. Temperature 99 degrees Fahrenheit, heart rate 110 per minute, and respiratory rate 16 per minute. Blood pressure 163/100 mmHg and oxygen saturation 96% on room air. His head is atraumatic. He is edentulous with dentures. Neck supple and jugular venous distention (JVD) not elevated. Heart sounds are tachycardic and lung sounds clear to auscultation. Abdomen soft and nontender. Multiple old surgical scars all well-healed. Extremities have no cyanosis or clubbing. He has left [id number] amputation and dressing is intact. There is minimal edema on the right foot. Neurologically he is at his baseline mentation without a focal deficit. LABORATORY DATA: Sodium is 139 and potassium 4.4. CO2 26, BUN 16, and creatinine 0.65. Glucose 112 and calcium 9.5. C-reactive protein is 25.2, total protein 6.5, and albumin 2.7. WBC count 13.8, hemoglobin 10.8, and hematocrit 34.8. INR is 2.93. PROBLEMS: 1. End-stage renal disease, status post kidney transplant. Transplant kidney is functioning well with stable renal function. He will continue with chronic immunosuppression including sirolimus, azathioprine, and prednisone. His levels have been appropriate and current dose is appropriate. 2. Congestive heart failure. His volume status has improved significantly. He has severe aortic stenosis and I would recommend to avoid over diuresis. I am cutting down his torsemide dose to 20 mg twice a day. 3. Severe aortic stenosis. Patient has plan for a transcatheter aortic valve replacement (TAVR) procedure in near future once he gets discharged from the hospital. At this point, we will continue to monitor closely. 4. Chronic atrial fibrillation. Patient has been on digoxin and Coumadin. His INR is still in therapeutic range. 5. Peripheral vascular disease, status post left [id number] amputation. Patient is now admitted to acute rehabilitation following his amputation. We are waiting for Dr. Ortez to decide about right lower extremity angiogram for further evaluation of circulation in his other leg. 6. Chronic degenerative joint disease and spinal disc disease. Patient has been on chronic pain control with gabapentin and Percocet. I agree with chronic medications. He is not suitable for any nonsteroidal anti-inflammatory drugs (NSAIDs). Thank you for involving me in the care of Mr. Kwon. I will follow him along with you.
--- NOTE | 2021-02-01 19:06 | IPN ---
PROGRESS NOTE DATE: 02/01/2021 SUBJECTIVE: Mr. Kwon is seen this morning on his bedside. He is quite restless in the bed and moving frequently. He reports difficulty with his back pain and positioning. He had some problems this morning when he could not position himself to urinate, however, was able to manage it. He is feeling much better now. He denies any nausea or vomiting. He did eat some this morning, which is his first meal since he came. PHYSICAL EXAMINATION: VITALS: Temperature 97.7 degrees Fahrenheit, heart rate 122 per minute, respiratory rate 16 per minute, blood pressure 142/79 mmHg and oxygen saturation 93% on room air. HEENT: Head is atraumatic. Neck is supple and without JVD or thyroid enlargement. LUNGS: Clear to auscultation. HEART: Sounds are tachycardic and irregular. He has systolic murmur grade 3/6. ABDOMEN: Soft and nontender. Multiple old surgical scars are all healed. Transplant kidney is nontender. EXTREMITIES: Without any cyanosis or clubbing. He has chronic hyperpigmentation on his hands. He has a left above the knee amputation. There is trace of edema on his right leg. NEUROLOGIC: He is at his baseline mentation, without a focal deficit. LABORATORY DATA: Patient did not have any new labs done today. PROBLEMS: 1. Kidney transplant status: His kidney function has been stable and he will continue with chronic immunosuppressive therapy, which includes prednisone, Sirolimus and Azathioprine. 2. Congestive heart failure: His volume status seems well compensated and I cut down his Torsemide dose to 20 mg b.i.d. yesterday. 3. Atrial fibrillation: Chronic issue and his heart rate is slightly about 100 today. He remains on Digoxin at present along with anticoagulation with Coumadin. His INR was high today and Coumadin has been held. 4. Secondary hyperparathyroidism: Patient remains on Calcitriol and Cinacalcet. 5. Hypertension: Blood pressure seems to be well controlled on current antihypertensives. 6. Aortic stenosis: Patient is known to have severe aortic stenosis and has been evaluated by cardiology for possible aortic valve replacement in the near future. It remains to be seen how quickly he gets ready for the procedure following his left above the knee amputation.
[2021-02-01 20:30] VITALS: BP 141/72
[2021-02-01] MEDS: SENNA 8.6 MG TAB (SENOKOT) PO SCH (21:22)
[2021-02-02] MEDS: oxyCODONE 5MG TAB PO PRN ×3 (05:20→20:35)
[2021-02-02 06:44] VITALS: BP 131/79
[2021-02-02 07:56] LABS: BASO % 0.1 % (0.0-1.0); EOS # 0.1 10^3/uL (0.0-0.5); EOS % 1.3 % (0.0-3.0); HEMATOCRIT 32.1 % (42.0-52.0); HEMOGLOBIN 10.1 g/dl (13.5-17.5); LYMPH # 1.9 10^3/uL (1.5-5.0); LYMPH % 18.9 % (24.0-44.0); MEAN CORPUSCULAR HEMOGLOBIN 29.5 pg (27.0-33.0); MEAN CORPUSCULAR HGB CONC 31.5 g/dl (32.0-36.5); MEAN CORPUSCULAR VOLUME 93.9 fl (80.0-96.0); MONO # 1.2 10^3/uL (0.0-0.8); MONO % 12.2 % (2.0-8.0); NEUTROPHILS # 6.5 10^3/uL (1.5-8.5); NEUTROPHILS % 66.5 % (36.0-66.0); PLATELET COUNT, AUTOMATED 277 10^3/uL (150-450); RED BLOOD COUNT 3.42 10^6/uL (4.30-6.10); WHITE BLOOD COUNT 9.8 10^3/uL (4.0-10.0)
[2021-02-02 08:06] LABS: ALBUMIN 2.4 GM/DL (3.2-5.2); BLOOD UREA NITROGEN 19 MG/DL (7-18); CALCIUM LEVEL 9.4 MG/DL (8.8-10.2); CARBON DIOXIDE LEVEL 28 MEQ/L (21-32); CHLORIDE LEVEL 105 MEQ/L (98-107); CREATININE FOR GFR 0.68 MG/DL (0.70-1.30); GLOMERULAR FILTRATION RATE > 60.0 (>42); GLUCOSE, FASTING 125 MG/DL (70-100); MAGNESIUM LEVEL 1.8 MG/DL (1.8-2.4); PHOSPHORUS LEVEL 2.2 MG/DL (2.5-4.9); SODIUM LEVEL 139 MEQ/L (136-145)
[2021-02-02] MEDS: ACETAMINOPHEN 500 MG TAB PO SCH ×3 (08:24→20:34)
[2021-02-02] MEDS: POTASSIUM CHLORIDE 10 MEQ SR TABLET PO SCH ×2 (08:24→20:32)
[2021-02-02] MEDS: PANTOPRAZOLE 40MG TAB (PROTONIX) PO SCH (08:24)
[2021-02-02] MEDS: K-PHOS ORIGINAL (POT.ACID PHOSPHATE) 500MG TAB PO SCH ×2 (08:24→20:35)
[2021-02-02] MEDS: VITAMIN B COMPLEX/VIT C CAP PO SCH (08:24)
[2021-02-02] MEDS: GABAPENTIN 300 MG CAP PO SCH ×3 (08:24→20:32)
[2021-02-02] MEDS: ASPIRIN 81MG ENTERIC TABLET PO SCH (08:25)
[2021-02-02] MEDS: MAGNESIUM GLUCONATE 500 MG TAB PO SCH ×2 (08:25→20:32)
[2021-02-02] MEDS: CALCITRIOL 0.25 MCG CAP (S0169) PO SCH (08:25)
[2021-02-02] MEDS: TORSEMIDE 20 MG TAB PO SCH ×2 (08:25→17:48)
[2021-02-02] MEDS: DOCUSATE SODIUM 100MG CAPSULE PO SCH ×2 (08:25→20:35)
[2021-02-02] MEDS: predniSONE 5 MG TAB PO SCH (08:25)
[2021-02-02] MEDS: SIROLIMUS 1 MG TAB (RAPAMUNE) PO SCH (08:26)
[2021-02-02] MEDS: aMILoride 5 MG TAB PO SCH (08:26)
[2021-02-02] MEDS: DIGOXIN 0.125 MG TAB PO SCH (08:26)
[2021-02-02] MEDS: REMEDY PHYTOPLEX Z-GUARD PASTE 113GM TUBE (FROM STOREROOM PRODUCT) TOP SCH ×3 (08:27→20:35)
[2021-02-02 08:28] LABS: INR 3.97; PROTHROMBIN TIME 39.7 SECONDS (12.5-14.3)
--- NOTE | 2021-02-02 09:16 | IPNPDOC ---
Text Note Date of Service The patient was seen on 02/02/21. NOTE Vascular surgery. Dr. Ortez The patient is a 76-year-old male status post left above-knee amputation 01/28/[address] Ortez. He is reporting most of his pain is from his arthritis, left lower extremity pain has been controlled. He is known to have chronic pain and is on chronic narcotics as outpatient. The left AKA stump dressing is noted to have some yellowish drainage on the dressing but there does not appear to be any drainage on exam. There is also some dried blood along the skin edge. [place] and sutures are intact. There is still some bruising along the skin edges as well as on the posterior stump, which was felt to be expected since the patient is on Coumadin. The wound is thoroughly cleaned, Xeroform applied, fluffs, 4 x 4's, Kerlix and Kyle wrap. Continue to closely monitor. Continue with a high-protein diet to help with healing. Continue to elevate stump. VS,Fishbone, I+O VS, Fishbone, I+O Laboratory Tests 02/02/21 07:25 Vital Signs Date Time Temp Pulse Resp B/P (MAP) Pulse Ox O2 Delivery O2 Flow Rate FiO2 02/02/21 08:26 89 135/72 02/02/21 06:44 97.8 18 97 Room Air I&O- Last 24 Hours up to 6 AM 02/02/21 05:59 Intake Total 840 ml Output Total 1100 ml Balance -260 ml Sherie Danielle February 02, 2021 09:16
--- NOTE | 2021-02-02 12:57 | IPN ---
PROGRESS NOTE DATE: 02/02/2021 SUBJECTIVE: Mr. Kwon is seen this morning on his bedside. He is sitting in the wheelchair today. He reports pain in his back which is a chronic issue and his neck. He had left above the knee amputation last week and is now undergoing acute rehab. The patient has a transplant kidney which has been functioning well with stable renal function. OBJECTIVE: VITAL SIGNS: Temperature is 97.8 degrees Fahrenheit, heart rate is 88 per minute and respiratory rate is 18 per minute. Blood pressure is 135/72 mmHg and oxygen saturation 97% on room air. HEAD: Atraumatic. NECK: Supple, without JVD sitting upright. LUNGS: Clear to auscultation. HEART: Heart sounds are irregular in rhythm with systolic murmur Grade 3/6. ABDOMEN: Soft and nontender. Bowel sounds are normal. EXTREMITIES: Without any cyanosis or clubbing. He has chronic ecchymosis on his hands and forearms. He also has chronic swelling of his right forearm. There is minimal edema on the right leg. He has a left above the knee amputation. LABORATORY DATA: Today's labs show a WBC count of 9.8, hemoglobin is 10.1 and hematocrit 32.1, platelets are 277,000. Sodium 139, potassium 4.0, CO2 28, BUN 19 and creatinine 0.68. Calcium is 9.4 and phosphorus is 2.2. Magnesium level is 1.8. C-reactive protein is down to 15.2. INR is down to 3.97. PROBLEMS: 1. Kidney transplant status. Kidney function is stable and the patient will continue with chronic immunosuppressive therapy. No changes are needed. 2. Congestive heart failure. Patient does have a history of chronic hypervolemia and diastolic congestive heart failure. His volume status is reasonably well compensated with mild right upper extremity and lower extremity edema. We will continue torsemide 20 mg b.i.d. for now. 3. Aortic stenosis. Patient does have a history of severe aortic stenosis and is likely to require an aortic valve replacement in the near future. 4. Anemia. His anemia is stable and we will continue to monitor closely. 5. Hypomagnesemia. This is related to transplant kidney and he remains on magnesium supplement with low normal magnesium level. 6. Chronic back pain. This is a chronic issue and he has been on pain medications along with rehab. 7. Hyperparathyroidism. The patient is currently on a combination of Calcitriol and Sensipar. His calcium level is normal and we will check his BPH level in a few days.
[2021-02-02 14:00] VITALS: BP 165/79
[2021-02-02] MEDS: CLINDAMYCIN 150MG CAPSULE PO SCH ×2 (17:47→20:32)
[2021-02-02] MEDS: LACTOBACILLUS ACIDOPHILUS CAP (BACID) PO SCH ×2 (17:48→20:32)
[2021-02-02 20:30] VITALS: BP 150/77
[2021-02-02] MEDS: SENNA 8.6 MG TAB (SENOKOT) PO SCH (20:32)
[2021-02-02] MEDS: hydrOXYzine 50 MG TAB PO PRN (20:32)
--- NOTE | 2021-02-02 23:40 | IPNPDOC ---
PM&R Progress Note DATE OF SERVICE: February 02, 2021 Float Tender Progress Note Subjective: Patient stating his left limb feels more sore and painful. He denies fevers or chills. REVIEW OF SYSTEMS: The following is a completed review of systems and has been reviewed. Review of systems otherwise unremarkable. PAIN: Patient self reports left AKA pain and chronic neck pain EYES: No recent vision changes EARS, NOSE, & THROAT: No throat pain, or dysphagia, or rhinorrhea CARDIOVASCULAR: Denies chest pain or palpitations PULMONARY: Denies shortness of breath GASTROINTESTINAL: Denies constipation/diarrhea GENITOURINARY: denies dysuria MUSCULOSKELETAL: s/p left AKA NEUROLOGICAL: denies tremor HEMATOLOGICAL: +anemia SKIN: left aka PSYCHIATRIC: Unremarkable All other review of systems found to be negative. PAST MEDICAL HISTORY: as per HPI PAST SURGICAL HISTORY: as per hpi and ventral hernia repair, Laparoscopy and robotic assisted laparoscopy with extensive lysis of adhesions with sigmoid colotomy, repair of colotomy and irrigation of the abdomen in aug 2020, thoracolumbar fusion ALLERGIES: Please see below. MEDICATIONS: Please see below. SOCIAL HISTORY: no etoh/smoking/illicit drugs DIET: low sodium PHYSICAL EXAMINATION: VITAL SIGNS: Please see below. GENERAL: Pleasant and cooperative. No acute distress. HEENT: PERRL. Extraocular movements intact. Clear conjunctiva CARDIOVASCULAR: irregular rate and rhythm. +systolic murmurs, rubs, or gallops LUNGS: Clear to auscultation bilaterally. No wheezes. No rhonchi ABDOMEN: Soft, nontender, nondistended. Positive bowel sounds. Normal active bowel sounds NEUROLOGICAL: Alert and oriented times three. Cranial nerves II through XII grossly intact. Sensation grossly intact EXTREMITIES: 5-\5 strength bilateral upper extremities. 5-\5 strength right lower extremity. left hip flexor 4/5 RUE edema>LUE RLE edema (with mild erythema non-tender to palpation) SKIN: left AKA with ecchymosis and scant sanguinous drainage, boggy with ecc hymotic induration on posterior thigh just below incision ASSESSMENT:76-year-old M with past medical history of IgA nephropathy s/p bilat nephrectomy with transplant, Afib, Aortic stenosis who presents status post left BKA PLAN: 1. Rehab- PT/OT advance mobility and ADLs, strengthen/stretch/maintain ROM all 4limbs, teach limb care 2. Ortho hx of chronic neck pain with multiple surgeries- soft cervical collar, gabapentin, flexeril, amd oxycodone 3. Vasc- sp left AKA on 01-28-21, limb appears slightly boggy today with more dependent ecchymosis and tenderness, will adjust dressing orders to promote curtain drier incision and start clindamycin for concern for cellulitis, c/u to monitor CRP/ESR- f/u Dr. Ortez 4. CArdiac- hx of Afib on coumadin (on hold bc supratherapeutic) c/u digoxin and monitor daily INRs -Aortic stenosis will need to reschedule TAVR- c/u amiloride and torsemide - CAD- on ASA -HTN c/u amlodipine 5. Resp- monitor for infection 6. Renal- IgA nephropathy s/p renal transplant- c/u imuran, sirolimus, and prednisone-renal consulted -c/u magnesium and phosphate supplement for hypomagnesemia and hypophosphatemia -calcitriol and Sensipar 7. DVT ppx- on coumadin 8. GI ppx- protonix 9. Pain- tylenol, flexeril, oxycodone, gabapentin 10. Psych- insomnia- atarax 11. DIspo- tbd Allergies Coded Allergies: Quinolones (Verified Allergy, Unknown, 01/07/21) oxybutynin (Verified Allergy, Unknown, 01/07/21) tamsulosin (Verified Allergy, Unknown, 01/07/21) ciprofloxacin (Verified Adverse Reaction, Intermediate, HEART RACES, 01/07/21) levofloxacin (Verified Adverse Reaction, Intermediate, HEART RACES, 01/07/21) amoxicillin (Verified Adverse Reaction, Mild, can take few prior to dentist but can not take for 10 days, 01/07/21) cefuroxime (Verified Adverse Reaction, Mild, ANXIETY, 01/07/21) codeine (Verified Adverse Reaction, Mild, AGITATION, 01/07/21) doxycycline (Verified Adverse Reaction, Mild, UPSET STOMACH, 01/07/21) lorazepam (Verified Adverse Reaction, Mild, AGITATION, 01/07/21) pregabalin (Verified Adverse Reaction, Mild, ANXIETY, DROWSINESS, 01/07/21) tizanidine (Verified Adverse Reaction, Unknown, 01/07/21) Vital Signs Vital Signs Date Time Temp Pulse Resp B/P (MAP) Pulse Ox O2 Delivery O2 Flow Rate FiO2 02/02/21 20:35 18 Room Air 02/02/21 20:30 98.2 89 150/77 (101) 94 Laboratory Data CBC/BMP Laboratory Tests 02/02/21 07:25 Labs 24H Laboratory Tests 2 02/02/21 07:25: Immature Granulocyte % (Auto) 1.0, Neutrophils (%) (Auto) 66.5H, Lymphocytes (%) (Auto) 18.9L, Monocytes (%) (Auto) 12.2H, Eosinophils (%) (Auto) 1.3, Basophils (%) (Auto) 0.1, Neutrophils # (Auto) 6.5, Lymphocytes # (Auto) 1.9, Monocytes # (Auto) 1.2H, Eosinophils # (Auto) 0.1, Basophils # (Auto) 0.0, Nucleated Red Blood Cells % (auto) 0.0, Prothrombin Time 39.7H, Prothromb Time International Ratio 3.97, Anion Gap 6L, Glomerular Filtration Rate > 60.0, Calcium Level 9.4, Phosphorus Level 2.2L, Magnesium Level 1.8, C-Reactive Protein, Quantitative 15.20H, Albumin 2.4L Current Medications Current Medications Current Medications Medications (Trade) Dose Ordered Sig/Dionte Route PRN Reason Start Time Stop Time Status Last Admin Dose Admin Acetaminophen (Tylenol Tab) 1,000 mg TID PO 01/30/21 16:00 02/02/21 20:34 Amiloride HCl (Midamor) 5 mg DAILY PO 01/31/21 09:00 02/02/21 08:26 Amlodipine Besylate (Norvasc) 5 mg DAILY PO 01/31/21 09:00 01/31/21 16:23 DC 01/31/21 09:53 Amlodipine Besylate (Norvasc) 10 mg DAILY PO 02/01/21 09:00 02/02/21 08:26 Aspirin (Ecotrin) 81 mg DAILY PO 01/31/21 09:00 02/02/21 08:25 Azathioprine (Imuran) 100 mg DAILY PO 01/31/21 09:00 02/02/21 08:26 Bisacodyl (Dulcolax Suppository) 10 mg DAILYPRN PRN [place] CONSTIPATION 01/30/21 12:45 Calcitriol (Rocaltrol) 0.25 mcg MoWeFr@0900 PO 02/02/21 09:00 02/02/21 08:25 Cinacalcet (Sensipar) 30 mg TuThSa@0900 PO 01/31/21 09:00 01/31/21 09:48 Clindamycin HCl (Cleocin) 300 mg QID PO 02/02/21 17:00 02/02/21 20:32 Cyclobenzaprine HCl (Flexeril) 10 mg Q8HP PRN PO SPASMS 01/30/21 12:55 Digoxin (Lanoxin) 0.125 mg DAILY PO 01/31/21 09:00 02/02/21 08:26 Docusate Sodium (Colace) 100 mg BID PO 01/30/21 21:00 02/02/21 20:35 Gabapentin (Neurontin) 600 mg TID PO 01/30/21 16:00 02/02/21 20:32 Home Med (Med Rec Complete!) ASDIRECTED XX 01/30/21 17:00 01/30/21 17:09 DC Hydroxyzine HCl (Atarax) 50 mg QHS PRN PO insomnia 01/30/21 12:55 02/02/21 20:32 Lactobacillus Acidophilus (Bacid) 1 ea WMHS PO 02/02/21 18:00 02/02/21 20:32 Magnesium Gluconate (Magnesium Gluconate) 1,500 mg BID PO 01/30/21 21:00 02/02/21 20:32 Ondansetron HCl (Zofran Odt) 4 mg Q6HP PRN SL NAUSEA OR VOMITING 01/31/21 13:55 01/31/21 14:02 Oxycodone HCl (Roxicodone, Oxyir) 5 mg Q4HP PRN PO PAIN LEVEL 4-7 01/30/21 12:55 01/31/21 21:12 Oxycodone HCl (Roxicodone, Oxyir) 10 mg Q6HP PRN PO SEVERE PAIN (PS 8-10) 01/31/21 14:40 02/02/21 20:35 Pantoprazole Sodium (Protonix) 40 mg DAILY PO 01/31/21 09:00 02/02/21 08:24 Potassium Phosphate (K-Phos Original) 500 mg BID PO 01/30/21 21:00 02/02/21 20:35 Potassium Chloride (Micro-K Extencaps) 10 meq BID PO 01/30/21 21:00 02/02/21 20:32 Prednisone (Deltasone) 5 mg DAILY PO 01/31/21 09:00 02/02/21 08:25 Senna (Senokot) 1 tab QHS PO 01/30/21 21:00 02/02/21 20:32 Sirolimus (Rapamune) 2 mg DAILY PO 01/31/21 09:00 02/02/21 08:26 Tacrolimus (Prograf) 2 mg QAM PO 01/31/21 09:00 01/30/21 18:39 DC Torsemide (Demadex) 20 mg BID@, PO 01/31/21 17:00 02/02/21 17:48 Torsemide (Demadex) 40 mg BID@09,17 PO 01/30/21 17:00 01/31/21 12:54 DC 01/31/21 09:48 Vitamin B Complex/ Vitamin C (Therapeutic B Complex w/C) 1 cap DAILY PO 01/31/21 09:00 02/02/21 08:24 Warfarin Sodium (Coumadin) 2 mg DAILY@17 PO 01/31/21 17:00 Hold 01/31/21 16:17 Warfarin Sodium (Coumadin) 3 mg DAILY@17 PO 01/30/21 17:00 01/31/21 11:31 DC 01/30/21 18:19 FARHAN LAMAR MD February 02, 2021 23:40
[2021-02-03] MEDS: oxyCODONE 5MG TAB PO PRN ×3 (02:49→22:10)
[2021-02-03 06:00] VITALS: BP 145/71
[2021-02-03 07:30] LABS: INR 4.06; PROTHROMBIN TIME 40.4 SECONDS (12.5-14.3)
[2021-02-03] MEDS: CINACALCET 30 MG TAB (SENSIPAR) PO SCH (07:50)
[2021-02-03] MEDS: LACTOBACILLUS ACIDOPHILUS CAP (BACID) PO SCH ×4 (07:51→22:12)
[2021-02-03] MEDS: aMILoride 5 MG TAB PO SCH (07:51)
[2021-02-03] MEDS: DOCUSATE SODIUM 100MG CAPSULE PO SCH ×2 (07:51→22:11)
[2021-02-03] MEDS: predniSONE 5 MG TAB PO SCH (07:51)
[2021-02-03] MEDS: VITAMIN B COMPLEX/VIT C CAP PO SCH (07:51)
[2021-02-03] MEDS: GABAPENTIN 300 MG CAP PO SCH ×3 (07:51→22:09)
[2021-02-03] MEDS: ASPIRIN 81MG ENTERIC TABLET PO SCH (07:51)
[2021-02-03] MEDS: TORSEMIDE 20 MG TAB PO SCH ×2 (07:51→17:24)
[2021-02-03] MEDS: K-PHOS ORIGINAL (POT.ACID PHOSPHATE) 500MG TAB PO SCH ×2 (07:51→22:12)
[2021-02-03] MEDS: CLINDAMYCIN 150MG CAPSULE PO SCH ×4 (07:52→22:13)
[2021-02-03] MEDS: POTASSIUM CHLORIDE 10 MEQ SR TABLET PO SCH ×2 (07:53→22:11)
[2021-02-03] MEDS: ACETAMINOPHEN 500 MG TAB PO SCH ×3 (07:53→22:12)
[2021-02-03] MEDS: PANTOPRAZOLE 40MG TAB (PROTONIX) PO SCH (07:53)
[2021-02-03] MEDS: DIGOXIN 0.125 MG TAB PO SCH (07:54)
[2021-02-03] MEDS: MAGNESIUM GLUCONATE 500 MG TAB PO SCH ×2 (07:54→22:12)
[2021-02-03] MEDS: SIROLIMUS 1 MG TAB (RAPAMUNE) PO SCH (07:55)
[2021-02-03] MEDS: REMEDY PHYTOPLEX Z-GUARD PASTE 113GM TUBE (FROM STOREROOM PRODUCT) TOP SCH ×3 (07:55→22:13)
[2021-02-03] MEDS: CYCLOBENZAPRINE 10MG TABLET PO PRN ×2 (09:36→22:09)
--- NOTE | 2021-02-03 09:48 | IPNPDOC ---
Date Seen The patient was seen on 02/03/21. Progress Note Patient seen and examined status post left AKA. He says he is doing well but has some pain on the posterior aspect of the stump. He is working with physical therapy this morning but returned to his room so I can do his dressing change. He is tolerating a diet and seems in better spirits today. On exam, the anterior aspect of the stump is clean dry and intact. The posterior aspect of the stump has a new focal ecchymosis, likely secondary to some mild injury. The patient is on Coumadin, so even in minor event can leave quite a bruise. The larger ecchymosis from his postoperative bruising on the posterior aspect of the stump has mostly resolved. There is still some bruising in the mid portion of the inferior incision and along the incision edge, but erik and sutures are intact and there is no active bleeding or drainage today. Per the nurse, there were some serous drainage yesterday, but I do not see this today. There is no erythema or induration, no warmth, no swelling. I do not see signs of infection or cellulitis. The stump was thoroughly cleaned. Fluffs 4 x 4's and Kerlix were placed and 4 inch Kyle wrap final dressing. The patient tolerated this dressing change well and was assisting me with the dressing. We will continue to follow. Unfortunately, with his anticoagulation, he is high risk for bruising and we will have to monitor the stump closely as this can affect healing. We appreciate the opportunity to participate in the care of this patient. VS, I&O, 24H, Fishbone Vital Signs/I&O Vital Signs Date Time Temp Pulse Resp B/P (MAP) Pulse Ox O2 Delivery O2 Flow Rate FiO2 02/03/21 09:36 20 02/03/21 07:54 89 02/03/21 07:52 151/79 02/03/21 06:00 98.8 95 Room Air I&O- Last 24 Hours up to 6 AM 02/03/21 06:00 Intake Total 515 ml Output Total 1550 ml Balance -1035 ml Laboratory Data 24H LABS Laboratory Tests 2 02/03/21 07:07: Prothrombin Time 40.4H, Prothromb Time International Ratio 4.06 IVY CASE MD February 03, 2021 09:47
--- NOTE | 2021-02-03 10:46 | IPNPDOC ---
PM&R Progress Note DATE OF SERVICE: February 03, 2021 Dynamo Tender Progress Note Subjective: Patient reporting he feels good today and has had no fevers or chills. REVIEW OF SYSTEMS: The following is a completed review of systems and has been reviewed. Review of systems otherwise unremarkable. PAIN: Patient self reports left AKA pain and chronic neck pain EYES: No recent vision changes EARS, NOSE, & THROAT: No throat pain, or dysphagia, or rhinorrhea CARDIOVASCULAR: Denies chest pain or palpitations PULMONARY: Denies shortness of breath GASTROINTESTINAL: Denies constipation/diarrhea GENITOURINARY: denies dysuria MUSCULOSKELETAL: s/p left AKA NEUROLOGICAL: denies tremor HEMATOLOGICAL: +anemia SKIN: left aka PSYCHIATRIC: Unremarkable All other review of systems found to be negative. PHYSICAL EXAMINATION: VITAL SIGNS: Please see below. GENERAL: Pleasant and cooperative. No acute distress. HEENT: PERRL. Extraocular movements intact. Clear conjunctiva CARDIOVASCULAR: irregular rate and rhythm. +systolic murmurs, rubs, or gallops LUNGS: Clear to auscultation bilaterally. No wheezes. No rhonchi ABDOMEN: Soft, nontender, nondistended. Positive bowel sounds. Normal active bowel sounds NEUROLOGICAL: Alert and oriented times three. Cranial nerves II through XII grossly intact. Sensation grossly intact EXTREMITIES: 5-\5 strength bilateral upper extremities. 5-\5 strength right lower extremity. left hip flexor 4/5 RUE edema>LUE RLE edema (with mild erythema non-tender to palpation) SKIN: left AKA with ecchymosis, dry with ecchymotic induration on posterior thigh just below incision ASSESSMENT:76-year-old M with past medical history of IgA nephropathy s/p bilat nephrectomy with transplant, Afib, Aortic stenosis who presents status post left BKA PLAN: 1. Rehab- PT/OT advance mobility and ADLs, strengthen/stretch/maintain ROM all 4limbs, teach limb care 2. Ortho hx of chronic neck pain with multiple surgeries- soft cervical collar, gabapentin, flexeril, amd oxycodone 3. Vasc- sp left AKA on 01-28-21, dressing changes adjusted, c/u clindamycin for concern for cellulitis, c/u to monitor CRP/ESR- f/u Dr. Ortez 4. CArdiac- hx of Afib on coumadin (on hold bc supratherapeutic) c/u digoxin and monitor daily INRs -Aortic stenosis will need to reschedule TAVR- c/u amiloride and torsemide - CAD- on ASA -HTN c/u amlodipine 5. Resp- monitor for infection 6. Renal- IgA nephropathy s/p renal transplant- c/u imuran, sirolimus, and prednisone-renal consulted -c/u magnesium and phosphate supplement for hypomagnesemia and hypophosphatemia -calcitriol and Sensipar 7. DVT ppx- on coumadin 8. GI ppx- protonix 9. Pain- tylenol, flexeril, oxycodone, gabapentin 10. Psych- insomnia- atarax 11. DIspo- 02-13-21 to home Allergies Coded Allergies: Quinolones (Verified Allergy, Unknown, 01/07/21) oxybutynin (Verified Allergy, Unknown, 01/07/21) tamsulosin (Verified Allergy, Unknown, 01/07/21) ciprofloxacin (Verified Adverse Reaction, Intermediate, HEART RACES, 01/07/21) levofloxacin (Verified Adverse Reaction, Intermediate, HEART RACES, 01/07/21) amoxicillin (Verified Adverse Reaction, Mild, can take few prior to dentist but can not take for 10 days, 01/07/21) cefuroxime (Verified Adverse Reaction, Mild, ANXIETY, 01/07/21) codeine (Verified Adverse Reaction, Mild, AGITATION, 01/07/21) doxycycline (Verified Adverse Reaction, Mild, UPSET STOMACH, 01/07/21) lorazepam (Verified Adverse Reaction, Mild, AGITATION, 01/07/21) pregabalin (Verified Adverse Reaction, Mild, ANXIETY, DROWSINESS, 01/07/21) tizanidine (Verified Adverse Reaction, Unknown, 01/07/21) Vital Signs Vital Signs Date Time Temp Pulse Resp B/P (MAP) Pulse Ox O2 Delivery O2 Flow Rate FiO2 02/03/21 09:36 20 02/03/21 07:54 89 02/03/21 07:52 151/79 02/03/21 06:00 98.8 95 Room Air Laboratory Data Labs 24H Laboratory Tests 2 02/03/21 07:07: Prothrombin Time 40.4H, Prothromb Time International Ratio 4.06 Current Medications Current Medications Current Medications Medications (Trade) Dose Ordered Sig/Dionte Route PRN Reason Start Time Stop Time Status Last Admin Dose Admin Acetaminophen (Tylenol Tab) 1,000 mg TID PO 01/30/21 16:00 02/03/21 07:53 Amiloride HCl (Midamor) 5 mg DAILY PO 01/31/21 09:00 02/03/21 07:51 Amlodipine Besylate (Norvasc) 5 mg DAILY PO 01/31/21 09:00 01/31/21 16:23 DC 01/31/21 09:53 Amlodipine Besylate (Norvasc) 10 mg DAILY PO 02/01/21 09:00 02/03/21 07:52 Aspirin (Ecotrin) 81 mg DAILY PO 01/31/21 09:00 02/03/21 07:51 Azathioprine (Imuran) 100 mg DAILY PO 01/31/21 09:00 02/03/21 07:52 Bisacodyl (Dulcolax Suppository) 10 mg DAILYPRN PRN IN CONSTIPATION 01/30/21 12:45 Calcitriol (Rocaltrol) 0.25 mcg MoWeFr@0900 PO 02/02/21 09:00 02/02/21 08:25 Cinacalcet (Sensipar) 30 mg TuThSa@0900 PO 01/31/21 09:00 02/03/21 07:50 Clindamycin HCl (Cleocin) 300 mg QID PO 02/02/21 17:00 02/03/21 07:52 Cyclobenzaprine HCl (Flexeril) 10 mg Q8HP PRN PO SPASMS 01/30/21 12:55 02/03/21 09:36 Digoxin (Lanoxin) 0.125 mg DAILY PO 01/31/21 09:00 02/03/21 07:54 Docusate Sodium (Colace) 100 mg BID PO 01/30/21 21:00 02/03/21 07:51 Gabapentin (Neurontin) 600 mg TID PO 01/30/21 16:00 02/03/21 07:51 Home Med (Med Rec Complete!) ASDIRECTED XX 01/30/21 17:00 01/30/21 17:09 DC Hydroxyzine HCl (Atarax) 50 mg QHS PRN PO insomnia 01/30/21 12:55 02/02/21 20:32 Lactobacillus Acidophilus (Bacid) 1 ea WMHS PO 02/02/21 18:00 02/03/21 07:51 Magnesium Gluconate (Magnesium Gluconate) 1,500 mg BID PO 01/30/21 21:00 02/03/21 07:54 Ondansetron HCl (Zofran Odt) 4 mg Q6HP PRN SL NAUSEA OR VOMITING 01/31/21 13:55 01/31/21 14:02 Oxycodone HCl (Roxicodone, Oxyir) 5 mg Q4HP PRN PO PAIN LEVEL 4-7 01/30/21 12:55 01/31/21 21:12 Oxycodone HCl (Roxicodone, Oxyir) 10 mg Q6HP PRN PO SEVERE PAIN (PS 8-10) 01/31/21 14:40 02/03/21 09:36 Pantoprazole Sodium (Protonix) 40 mg DAILY PO 01/31/21 09:00 02/03/21 07:53 Potassium Phosphate (K-Phos Original) 500 mg BID PO 01/30/21 21:00 02/03/21 07:51 Potassium Chloride (Micro-K Extencaps) 10 meq BID PO 01/30/21 21:00 02/03/21 07:53 Prednisone (Deltasone) 5 mg DAILY PO 01/31/21 09:00 02/03/21 07:51 Senna (Senokot) 1 tab QHS PO 01/30/21 21:00 02/02/21 20:32 Sirolimus (Rapamune) 2 mg DAILY PO 01/31/21 09:00 02/03/21 07:55 Tacrolimus (Prograf) 2 mg QAM PO 01/31/21 09:00 01/30/21 18:39 DC Torsemide (Demadex) 20 mg BID@,17 PO 01/31/21 17:00 02/03/21 07:51 Torsemide (Demadex) 40 mg BID@09,17 PO 01/30/21 17:00 01/31/21 12:54 DC 01/31/21 09:48 Vitamin B Complex/ Vitamin C (Therapeutic B Complex w/C) 1 cap DAILY PO 01/31/21 09:00 02/03/21 07:51 Warfarin Sodium (Coumadin) 2 mg DAILY@17 PO 01/31/21 17:00 Hold 01/31/21 16:17 Warfarin Sodium (Coumadin) 3 mg DAILY@17 PO 01/30/21 17:00 01/31/21 11:31 DC 01/30/21 18:19 FARHAN LAMAR MD February 03, 2021 10:46
--- NOTE | 2021-02-03 12:05 | IPN ---
PROGRESS NOTE DATE: 02/03/2021 SUBJECTIVE: Mr. Kwon is seen this morning on his bedside. He is sitting in the wheelchair currently getting ready to go for his Physical Therapy. His chronic problem of back pain and weakness of his right upper extremity is unchanged. He denies any dyspnea or chest pain. OBJECTIVE: VITAL SIGNS: Temperature is 98.8 degrees Fahrenheit, heart rate is 88 per minute and respiratory rate is 18 per minute. Blood pressure is 151/79 mmHg and oxygen saturation 95% on room air. HEAD AND NECK: Head is atraumatic. Neck is supple and without JVD or thyroid enlargement. LUNGS: Slightly diminished breath sounds but no wheezing or rales. HEART: Heart sounds are irregular in rhythm with systolic murmur Grade 2/6. ABDOMEN: Soft and nontender. Bowel sounds are normal. EXTREMITIES: Without any cyanosis or clubbing. He has chronic hyperpigmentation on both upper extremities. He has a recent left above the knee amputation. There is minimal edema on his right lower extremity. NEUROLOGIC: He is at his baseline mentation without any focal neurological deficit. LABORATORY DATA: Patient did not have any new labs. Yesterday, his labs were reviewed and kidney function was stable with BUN 19 and creatinine 0.68. His phosphorus level was 2.2 and all other electrolytes were within normal range. PROBLEMS: 1. Kidney transplant status. Kidney function has been stable and the patient will continue with chronic immunosuppressive therapy including his sirolimus, prednisone and azathioprine. 2. Hypertension, blood pressure seems to be well-controlled and he will continue with current antihypertensives including amlodipine and diuretics. 3. Congestive heart failure. Volume status seems clinically well-compensated. He remains on low dose amiloride and torsemide 20 mg b.i.d. 4. Atrial fibrillation, ventricular rate is reasonably well-controlled and he will continue with Digoxin and chronic anticoagulation. His INR is slightly elevated at 4.0. 5. Hypomagnesemia. His magnesium level was low normal yesterday and he remains on chronic magnesium supplement. 6. Peripheral vascular disease, status post left above the knee amputation. Patient is participating in acute rehab. He has significant limitations due to right upper extremity weakness and severe spine problems with degenerative disc disease and degenerative generalized arthritis. It remains to be seen how much progress he can make. 7. Peripheral vascular disease. Patient has severe vascular disease in his left lower extremity and required above the knee amputation. He has generalized vascular disease and will see if he needs any further angiograms.
[2021-02-03 14:00] VITALS: BP 166/76
[2021-02-03 22:00] VITALS: BP 126/60
[2021-02-03] MEDS: SENNA 8.6 MG TAB (SENOKOT) PO SCH (22:10)
[2021-02-04 06:47] VITALS: BP 128/73
[2021-02-04 06:50] VITALS: BP 128/73
[2021-02-04 07:03] LABS: BASO % 0.2 % (0.0-1.0); EOS # 0.1 10^3/uL (0.0-0.5); EOS % 1.4 % (0.0-3.0); HEMATOCRIT 33.7 % (42.0-52.0); HEMOGLOBIN 10.7 g/dl (13.5-17.5); LYMPH # 1.7 10^3/uL (1.5-5.0); LYMPH % 17.6 % (24.0-44.0); MEAN CORPUSCULAR HEMOGLOBIN 29.6 pg (27.0-33.0); MEAN CORPUSCULAR HGB CONC 31.8 g/dl (32.0-36.5); MEAN CORPUSCULAR VOLUME 93.1 fl (80.0-96.0); NEUTROPHILS # 6.8 10^3/uL (1.5-8.5); PLATELET COUNT, AUTOMATED 342 10^3/uL (150-450); RED BLOOD COUNT 3.62 10^6/uL (4.30-6.10); WHITE BLOOD COUNT 9.9 10^3/uL (4.0-10.0)
[2021-02-04 07:15] LABS: INR 4.33; PROTHROMBIN TIME 42.5 SECONDS (12.5-14.3)
[2021-02-04 07:23] LABS: BLOOD UREA NITROGEN 18 MG/DL (7-18); CALCIUM LEVEL 9.7 MG/DL (8.8-10.2); CARBON DIOXIDE LEVEL 29 MEQ/L (21-32); CHLORIDE LEVEL 101 MEQ/L (98-107); CREATININE FOR GFR 0.69 MG/DL (0.70-1.30); GLOMERULAR FILTRATION RATE > 60.0 (>42); GLUCOSE, FASTING 116 MG/DL (70-100); POTASSIUM SERUM 3.8 MEQ/L (3.5-5.1); SODIUM LEVEL 136 MEQ/L (136-145)
[2021-02-04 07:45] LABS: ERYTHROCYTE SEDIMENTATION RATE 126 mm/hr (0-20)
[2021-02-04 09:00] VITALS: BP 140/87
[2021-02-04] MEDS: ACETAMINOPHEN 500 MG TAB PO SCH ×3 (09:00→20:17)
[2021-02-04] MEDS: GABAPENTIN 300 MG CAP PO SCH ×3 (09:07→20:19)
[2021-02-04] MEDS: MAGNESIUM GLUCONATE 500 MG TAB PO SCH ×2 (09:07→20:19)
[2021-02-04] MEDS: DOCUSATE SODIUM 100MG CAPSULE PO SCH ×2 (09:08→20:16)
[2021-02-04] MEDS: CYCLOBENZAPRINE 10MG TABLET PO PRN (09:08)
[2021-02-04] MEDS: ASPIRIN 81MG ENTERIC TABLET PO SCH (09:08)
[2021-02-04] MEDS: VITAMIN B COMPLEX/VIT C CAP PO SCH (09:08)
[2021-02-04] MEDS: LACTOBACILLUS ACIDOPHILUS CAP (BACID) PO SCH ×4 (09:08→20:19)
[2021-02-04] MEDS: SIROLIMUS 1 MG TAB (RAPAMUNE) PO SCH (09:08)
[2021-02-04] MEDS: PANTOPRAZOLE 40MG TAB (PROTONIX) PO SCH (09:09)
[2021-02-04] MEDS: CLINDAMYCIN 150MG CAPSULE PO SCH ×4 (09:09→20:17)
[2021-02-04] MEDS: POTASSIUM CHLORIDE 10 MEQ SR TABLET PO SCH ×2 (09:09→20:16)
[2021-02-04] MEDS: CALCITRIOL 0.25 MCG CAP (S0169) PO SCH (09:09)
[2021-02-04] MEDS: K-PHOS ORIGINAL (POT.ACID PHOSPHATE) 500MG TAB PO SCH ×2 (09:09→20:19)
[2021-02-04] MEDS: aMILoride 5 MG TAB PO SCH (09:10)
[2021-02-04] MEDS: TORSEMIDE 20 MG TAB PO SCH ×2 (09:10→17:55)
[2021-02-04] MEDS: predniSONE 5 MG TAB PO SCH (09:10)
[2021-02-04] MEDS: DIGOXIN 0.125 MG TAB PO SCH (09:10)
[2021-02-04] MEDS: oxyCODONE 5MG TAB PO PRN ×3 (09:12→20:19)
[2021-02-04] MEDS: REMEDY PHYTOPLEX Z-GUARD PASTE 113GM TUBE (FROM STOREROOM PRODUCT) TOP SCH ×3 (09:13→20:20)
[2021-02-04 09:15] LABS: PTH INTACT 94.5 PG/ML (18.5-88.0)
--- NOTE | 2021-02-04 09:47 | IPNPDOC ---
PM&R Progress Note DATE OF SERVICE: February 04, 2021 Analysis Lead Progress Note Subjective: Patient reporting he overall feels stronger and would like an icepack for his low back. REVIEW OF SYSTEMS: The following is a completed review of systems and has been reviewed. Review of systems otherwise unremarkable. PAIN: Patient self reports left AKA pain and chronic neck pain EYES: No recent vision changes EARS, NOSE, & THROAT: No throat pain, or dysphagia, or rhinorrhea CARDIOVASCULAR: Denies chest pain or palpitations PULMONARY: Denies shortness of breath GASTROINTESTINAL: Denies constipation/diarrhea GENITOURINARY: denies dysuria MUSCULOSKELETAL: s/p left AKA NEUROLOGICAL: denies tremor HEMATOLOGICAL: +anemia SKIN: left aka PSYCHIATRIC: Unremarkable All other review of systems found to be negative. PHYSICAL EXAMINATION: VITAL SIGNS: Please see below. GENERAL: Pleasant and cooperative. No acute distress. HEENT: PERRL. Extraocular movements intact. Clear conjunctiva CARDIOVASCULAR: irregular rate and rhythm. +systolic murmurs, rubs, or gallops LUNGS: Clear to auscultation bilaterally. No wheezes. No rhonchi ABDOMEN: Soft, nontender, nondistended. Positive bowel sounds. Normal active bowel sounds NEUROLOGICAL: Alert and oriented times three. Cranial nerves II through XII grossly intact. Sensation grossly intact EXTREMITIES: 5-\5 strength bilateral upper extremities. 5-\5 strength right lower extremity. left hip flexor 4/5 RUE edema>LUE RLE edema (with mild erythema non-tender to palpation) SKIN: left AKA with ecchymosis, dry with ecchymotic induration on posterior thigh just below incision ASSESSMENT:76-year-old M with past medical history of IgA nephropathy s/p bilat nephrectomy with transplant, Afib, Aortic stenosis who presents status post left BKA PLAN: 1. Rehab- PT/OT advance mobility and ADLs, strengthen/stretch/maintain ROM all 4limbs, teach limb care 2. Ortho hx of chronic neck pain with multiple surgeries- soft cervical collar, gabapentin, flexeril, amd oxycodone 3. Vasc- sp left AKA on 01-28-21, dressing changes adjusted, c/u clindamycin for concern for cellulitis, c/u to monitor CRP/ESR- f/u Dr. Ortez 4. CArdiac- hx of Afib on coumadin (on hold bc supratherapeutic) c/u digoxin and monitor daily INRs -Aortic stenosis will need to reschedule TAVR- c/u amiloride and torsemide - CAD- on ASA -HTN c/u amlodipine 5. Resp- monitor for infection 6. Renal- IgA nephropathy s/p renal transplant- c/u imuran, sirolimus, and prednisone-renal consulted -c/u magnesium and phosphate supplement for hypomagnesemia and hypophosphatemia -calcitriol and Sensipar 7. DVT ppx- on coumadin 8. GI ppx- protonix 9. Pain- tylenol, flexeril, oxycodone, gabapentin 10. Psych- insomnia- atarax 11. DIspo- 02-13-21 to home Allergies Coded Allergies: Quinolones (Verified Allergy, Unknown, 01/07/21) oxybutynin (Verified Allergy, Unknown, 01/07/21) tamsulosin (Verified Allergy, Unknown, 01/07/21) ciprofloxacin (Verified Adverse Reaction, Intermediate, HEART RACES, 01/07/21) levofloxacin (Verified Adverse Reaction, Intermediate, HEART RACES, 01/07) amoxicillin (Verified Adverse Reaction, Mild, can take few prior to dentist but can not take for 10 days, 01/07/21) cefuroxime (Verified Adverse Reaction, Mild, ANXIETY, 01/07/21) codeine (Verified Adverse Reaction, Mild, AGITATION, 01/07/21) doxycycline (Verified Adverse Reaction, Mild, UPSET STOMACH, 01/07/21) lorazepam (Verified Adverse Reaction, Mild, AGITATION, 01/07/21) pregabalin (Verified Adverse Reaction, Mild, ANXIETY, DROWSINESS, 01/07/21) tizanidine (Verified Adverse Reaction, Unknown, 01/07/21) Vital Signs Vital Signs Date Time Temp Pulse Resp B/P (MAP) Pulse Ox O2 Delivery O2 Flow Rate FiO2 02/04/21 09:12 18 02/04/21 09:11 75 140/87 02/04/21 06:50 98.2 97 Room Air Laboratory Data CBC/BMP Laboratory Tests 02/04/21 06:35 Labs 24H Laboratory Tests 2 02/04/21 06:35: Immature Granulocyte % (Auto) 1.8, Neutrophils (%) (Auto) 69.0H, Lymphocytes (%) (Auto) 17.6L, Monocytes (%) (Auto) 10.0H, Eosinophils (%) (Auto) 1.4, Basophils (%) (Auto) 0.2, Neutrophils # (Auto) 6.8, Lymphocytes # (Auto) 1.7, Monocytes # (Auto) 1.0H, Eosinophils # (Auto) 0.1, Basophils # (Auto) 0.0, Nucleated Red Blood Cells % (auto) 0.0, Erythrocyte Sedimentation Rate 126H, Prothrombin Time 42.5H, Prothromb Time International Ratio 4.33, Anion Gap 6L, Glomerular Filtration Rate > 60.0, Calcium Level 9.7, C-Reactive Protein, Quantitative 11.90H, Parathyroid Hormone (Intact) 94.5H Current Medications Current Medications Current Medications Medications (Trade) Dose Ordered Sig/Dionte Route PRN Reason Start Time Stop Time Status Last Admin Dose Admin Acetaminophen (Tylenol Tab) 1,000 mg TID PO 01/30/21 16:00 02/03/21 22:12 Amiloride HCl (Midamor) 5 mg DAILY PO 01/31/21 09:00 02/04/21 09:10 Amlodipine Besylate (Norvasc) 5 mg DAILY PO 01/31/21 09:00 01/31/21 16:23 DC 01/31/21 09:53 Amlodipine Besylate (Norvasc) 10 mg DAILY PO 02/01/21 09:00 02/04/21 09:11 Aspirin (Ecotrin) 81 mg DAILY PO 01/31/21 09:00 02/04/21 09:08 Azathioprine (Imuran) 100 mg DAILY PO 01/31/21 09:00 02/04/21 09:08 Bisacodyl (Dulcolax Suppository) 10 mg DAILYPRN PRN [place] CONSTIPATION 01/30/21 12:45 Calcitriol (Rocaltrol) 0.25 mcg MoWeFr@0900 PO 02/02/21 09:00 02/04/21 09:09 Cinacalcet (Sensipar) 30 mg TuThSa@0900 PO 01/31/21 09:00 02/03/21 07:50 Clindamycin HCl (Cleocin) 300 mg QID PO 02/02/21 17:00 02/04/21 09:09 Cyclobenzaprine HCl (Flexeril) 10 mg Q8HP PRN PO SPASMS 01/30/21 12:55 02/04/21 09:08 Digoxin (Lanoxin) 0.125 mg DAILY PO 01/31/21 09:00 02/04/21 09:10 Docusate Sodium (Colace) 100 mg BID PO 01/30/21 21:00 02/04/21 09:08 Gabapentin (Neurontin) 600 mg TID PO 01/30/21 16:00 02/04/21 09:07 Home Med (Med Rec Complete!) ASDIRECTED XX 01/30/21 17:00 01/30/21 17:09 DC Hydroxyzine HCl (Atarax) 50 mg QHS PRN PO insomnia 01/30/21 12:55 02/02/21 20:32 Lactobacillus Acidophilus (Bacid) 1 ea WMHS PO 02/02/21 18:00 02/04/21 09:08 Magnesium Gluconate (Magnesium Gluconate) 1,500 mg BID PO 01/30/21 21:00 02/04/21 09:07 Ondansetron HCl (Zofran Odt) 4 mg Q6HP PRN SL NAUSEA OR VOMITING 01/31/21 13:55 01/31/21 14:02 Oxycodone HCl (Roxicodone, Oxyir) 5 mg Q4HP PRN PO PAIN LEVEL 4-7 01/30/21 12:55 02/04/21 09:12 Oxycodone HCl (Roxicodone, Oxyir) 10 mg Q6HP PRN PO SEVERE PAIN (PS 8-10) 01/31/21 14:40 02/03/21 22:10 Pantoprazole Sodium (Protonix) 40 mg DAILY PO 01/31/21 09:00 02/04/21 09:09 Potassium Phosphate (K-Phos Original) 500 mg BID PO 01/30/21 21:00 02/04/21 09:09 Potassium Chloride (Micro-K Extencaps) 10 meq BID PO 01/30/21 21:00 02/04/21 09:09 Prednisone (Deltasone) 5 mg DAILY PO 01/31/21 09:00 02/04/21 09:10 Senna (Senokot) 1 tab QHS PO 01/30/21 21:00 02/03/21 22:10 Sirolimus (Rapamune) 2 mg DAILY PO 01/31/21 09:00 02/04/21 09:08 Tacrolimus (Prograf) 2 mg QAM PO 01/31/21 09:00 01/30/21 18:39 DC Torsemide (Demadex) 20 mg BID@09,17 PO 01/31/21 17:00 02/04/21 09:10 Torsemide (Demadex) 40 mg BID@, PO 01/30/21 17:00 01/31/21 12:54 DC 01/31/21 09:48 Vitamin B Complex/ Vitamin C (Therapeutic B Complex w/C) 1 cap DAILY PO 01/31/21 09:00 02/04/21 09:08 Warfarin Sodium (Coumadin) 2 mg DAILY@17 PO 01/31/21 17:00 Hold 01/31/21 16:17 Warfarin Sodium (Coumadin) 3 mg DAILY@17 PO 01/30/21 17:00 01/31/21 11:31 DC 01/30/21 18:19 FARHAN LAMAR MD February 04, 2021 09:47
--- NOTE | 2021-02-04 13:29 | IPNPDOC ---
Date Seen The patient was seen on 02/04/21. Progress Note Patient seen and examined her earlier this morning. He was doing well. He was wheeling himself down the howell with occupational therapy and doing a great job. He then transferred himself with assist back to bed so we can examine his left AKA stump. On exam, the incision is clean dry and intact with scant serous drainage no active drainage noted. The posterior bruise appears to be somewhat resolving, but there was an area that was pretty dark purple right near the mid inferior incision, and this had a little bit of denuded skin.. We replaced the skin to protect the area, and covered this with a small piece of Xeroform. The rest of the incision was thoroughly cleaned and dressed with dry gauze and Kerlix. Kyle wrap was placed in the stump was elevated. The patient tolerated the dressing change well and helped us by elevating his stump. He seemed to have minimal pain with dressing change today. I'm hopeful that the bruised area will heal without challenge, but we will monitor closely. With Coumadin, even a very minor trauma can lead to bruising, so we've encouraged the patient to just take care and did the best he can to avoid bumping the stump while he is doing his activities. Unfortunately, it can be very difficult to completely avoid this. Today, we did not see any erythema induration swelling or signs of infection. There is no purulence or odor. We appreciate the opportunity to participate in the care of this patient. VS, I&O, 24H, Fishbone Vital Signs/I&O Vital Signs Date Time Temp Pulse Resp B/P (MAP) Pulse Ox O2 Delivery O2 Flow Rate FiO2 02/04/21 09:42 18 02/04/21 09:11 75 140/87 02/04/21 06:50 98.2 97 Room Air I&O- Last 24 Hours up to 6 AM 02/04/21 06:00 Intake Total 1735 ml Output Total 1550 ml Balance 185 ml Laboratory Data 24H LABS Laboratory Tests 2 02/04/21 06:35: Immature Granulocyte % (Auto) 1.8, Neutrophils (%) (Auto) 69.0H, Lymphocytes (%) (Auto) 17.6L, Monocytes (%) (Auto) 10.0H, Eosinophils (%) (Auto) 1.4, Basophils (%) (Auto) 0.2, Neutrophils # (Auto) 6.8, Lymphocytes # (Auto) 1.7, Monocytes # (Auto) 1.0H, Eosinophils # (Auto) 0.1, Basophils # (Auto) 0.0, Nucleated Red Blood Cells % (auto) 0.0, Erythrocyte Sedimentation Rate 126H, Prothrombin Time 42.5H, Prothromb Time International Ratio 4.33, Anion Gap 6L, Glomerular Filtration Rate > 60.0, Calcium Level 9.7, C-Reactive Protein, Quantitative 11.90H, Parathyroid Hormone (Intact) 94.5H CBC/BMP Laboratory Tests 02/04/21 06:35 IVY CASE MD February 04, 2021 13:29
[2021-02-04 14:00] VITALS: BP 142/80
[2021-02-04 20:00] VITALS: BP 147/79
[2021-02-04] MEDS: SENNA 8.6 MG TAB (SENOKOT) PO SCH (20:17)
[2021-02-05] MEDS: oxyCODONE 5MG TAB PO PRN ×3 (03:14→15:32)
[2021-02-05 05:14] VITALS: BP 115/65
[2021-02-05 07:08] LABS: INR 3.62; PROTHROMBIN TIME 36.9 SECONDS (12.5-14.3)
[2021-02-05] MEDS: LACTOBACILLUS ACIDOPHILUS CAP (BACID) PO SCH ×4 (08:00→21:02)
--- NOTE | 2021-02-05 08:58 | IPN ---
NEPHROLOGY PROGRESS NOTE DATE: 02/04/2021 SUBJECTIVE: Mr. Kwon is seen this morning during acute rehab. He is sitting in the wheelchair. He is complaining of generalized aches and pains but clearly in his back, right shoulder and neck. His right arm weakness is limiting somewhat his ability to participate in rehab, however he is doing his best. He denies any nausea, vomiting, dyspnea or chest pain. OBJECTIVE: PHYSICAL EXAMINATION: VITAL SIGNS: Temperature 97.8 degrees Fahrenheit, heart rate 75 per minute and respiratory rate 18 per minute, blood pressure 140/87 mm of mercury and oxygen saturation is 98% on room air. HEENT: His head is atraumatic. NECK: Supple and without JVD or thyroid enlargement. HEART: Irregular with a systolic murmur, grade 2/6. LUNGS: Clear to auscultation bilaterally. ABDOMEN: Soft and nontender. He is wearing his abdominal binder. EXTREMITIES: Without any cyanosis or clubbing. He has left above the knee amputation. There is chronic hyperpigmentation on both upper extremities but no cyanosis or clubbing. NEUROLOGICAL: He is at his baseline mentation. LABORATORY STUDIES: Today's labs show a white blood cell count of 9.9, hemoglobin 10.7, hematocrit 33.7. Sodium 136, potassium 3.8, CO2 29, BUN 18 and creatinine 0.69. Glucose 116 and calcium 9.7. C-reactive protein is coming down to 11.9. Intact PTH level is 94.5. PROBLEMS: 1. Kidney transplant status - The patient has a transplant kidney which has been functioning very well and kidney function is stable at baseline. Continue with current immunosuppressive therapy including Azathioprine, Prednisone, and Sirolimus. 2. Hyperparathyroidism his intact PTH level is appropriate at this time we will continue with the current dose of Sensipar and Calcitriol. No changes are being made today. 3. Hypokalemia he has chronic hypokalemia and has been on a potassium supplement. Since he was admitted in the hospital he is not receiving a full dose of potassium supplement, but only 10 mEq twice daily and we will continue with the same and monitor his potassium level. 4. Congestive heart failure - The patient remains on Torsemide 20 mg twice daily. 5. Hypomagnesemia this is a chronic issue and his last magnesium level was appropriate. He will continue with a magnesium supplement. 6. Atrial fibrillation his ventricular rate is well controlled and he remains on Digoxin and Coumadin. 7. Peripheral vascular disease, status post left above the knee amputation - The patient has generalized vascular disease, however no other significant symptoms. He had his above the knee amputation and is currently undergoing acute rehab.
[2021-02-05] MEDS: REMEDY PHYTOPLEX Z-GUARD PASTE 113GM TUBE (FROM STOREROOM PRODUCT) TOP SCH ×3 (09:00→21:03)
[2021-02-05] MEDS: aMILoride 5 MG TAB PO SCH (09:27)
[2021-02-05] MEDS: VITAMIN B COMPLEX/VIT C CAP PO SCH (09:27)
[2021-02-05] MEDS: GABAPENTIN 300 MG CAP PO SCH ×3 (09:28→21:01)
[2021-02-05] MEDS: CINACALCET 30 MG TAB (SENSIPAR) PO SCH (09:28)
[2021-02-05] MEDS: ACETAMINOPHEN 500 MG TAB PO SCH ×3 (09:28→21:02)
[2021-02-05] MEDS: K-PHOS ORIGINAL (POT.ACID PHOSPHATE) 500MG TAB PO SCH ×2 (09:28→21:01)
[2021-02-05] MEDS: TORSEMIDE 20 MG TAB PO SCH ×2 (09:28→17:38)
[2021-02-05] MEDS: CYCLOBENZAPRINE 10MG TABLET PO PRN ×2 (09:28→21:09)
[2021-02-05] MEDS: CLINDAMYCIN 150MG CAPSULE PO SCH ×4 (09:28→21:02)
[2021-02-05] MEDS: PANTOPRAZOLE 40MG TAB (PROTONIX) PO SCH (09:29)
[2021-02-05] MEDS: DIGOXIN 0.125 MG TAB PO SCH (09:29)
[2021-02-05] MEDS: SIROLIMUS 1 MG TAB (RAPAMUNE) PO SCH (09:29)
[2021-02-05] MEDS: predniSONE 5 MG TAB PO SCH (09:29)
[2021-02-05] MEDS: DOCUSATE SODIUM 100MG CAPSULE PO SCH ×2 (09:29→21:00)
[2021-02-05] MEDS: ASPIRIN 81MG ENTERIC TABLET PO SCH (09:29)
[2021-02-05] MEDS: MAGNESIUM GLUCONATE 500 MG TAB PO SCH ×2 (09:30→21:01)
[2021-02-05] MEDS: POTASSIUM CHLORIDE 10 MEQ SR TABLET PO SCH ×2 (09:30→21:02)
--- NOTE | 2021-02-05 11:45 | IPNPDOC ---
PM&R Progress Note DATE OF SERVICE: February 05, 2021 Md Senior Research Scientist Progress Note Subjective: Patient seen in his room stating he has been having difficulty offloading his left limb and it has been painful. He denies fevers or chills. REVIEW OF SYSTEMS: The following is a completed review of systems and has been reviewed. Review of systems otherwise unremarkable. PAIN: Patient self reports left AKA pain and chronic neck pain EYES: No recent vision changes EARS, NOSE, & THROAT: No throat pain, or dysphagia, or rhinorrhea CARDIOVASCULAR: Denies chest pain or palpitations PULMONARY: Denies shortness of breath GASTROINTESTINAL: Denies constipation/diarrhea GENITOURINARY: denies dysuria MUSCULOSKELETAL: s/p left AKA NEUROLOGICAL: denies tremor HEMATOLOGICAL: +anemia SKIN: left aka PSYCHIATRIC: Unremarkable All other review of systems found to be negative. PHYSICAL EXAMINATION: VITAL SIGNS: Please see below. GENERAL: Pleasant and cooperative. No acute distress. HEENT: PERRL. Extraocular movements intact. Clear conjunctiva CARDIOVASCULAR: irregular rate and rhythm. +systolic murmurs, rubs, or gallops LUNGS: Clear to auscultation bilaterally. No wheezes. No rhonchi ABDOMEN: Soft, nontender, nondistended. Positive bowel sounds. Normal active bowel sounds NEUROLOGICAL: Alert and oriented times three. Cranial nerves II through XII grossly intact. Sensation grossly intact EXTREMITIES: 5-\5 strength bilateral upper extremities. 5-\5 strength right lower extremity. left hip flexor 4/5 RUE edema>LUE RLE edema (with mild erythema non-tender to palpation) SKIN: left AKA with ecchymosis, lawrence-incision with maceration and scant serous drainage, + ecchymotic induration on posterior thigh just below incision ASSESSMENT:76-year-old M with past medical history of IgA nephropathy s/p bilat nephrectomy with transplant, Afib, Aortic stenosis who presents status post left BKA PLAN: 1. Rehab- PT/OT advance mobility and ADLs, strengthen/stretch/maintain ROM all 4limbs, teach limb care 2. Ortho hx of chronic neck pain with multiple surgeries- soft cervical collar, gabapentin, flexeril, amd oxycodone 3. Vasc- sp left AKA on 01-28-21, dressing changes adjusted to protect incision and lawrence-incision from maceration, c/u clindamycin for concern for cellulitis, c/u to monitor CRP/ESR- f/u Dr. Ortez 4. CArdiac- hx of Afib on coumadin (on hold bc supratherapeutic) c/u digoxin and monitor daily INRs -Aortic stenosis will need to reschedule TAVR- c/u amiloride and torsemide - CAD- on ASA -HTN c/u amlodipine 5. Resp- monitor for infection 6. Renal- IgA nephropathy s/p renal transplant- c/u imuran, sirolimus, and prednisone-renal consulted -c/u magnesium and phosphate supplement for hypomagnesemia and hypophosphatemia -calcitriol and Sensipar 7. DVT ppx- on coumadin 8. GI ppx- protonix 9. Pain- tylenol, flexeril, oxycodone, gabapentin 10. Psych- insomnia- atarax 11. DIspo- 02-13-21 to home Allergies Coded Allergies: Quinolones (Verified Allergy, Unknown, 01/07/21) oxybutynin (Verified Allergy, Unknown, 01/07/21) tamsulosin (Verified Allergy, Unknown, 01/07/21) ciprofloxacin (Verified Adverse Reaction, Intermediate, HEART RACES, 01/07/21) levofloxacin (Verified Adverse Reaction, Intermediate, HEART RACES, 01/07/21) amoxicillin (Verified Adverse Reaction, Mild, can take few prior to dentist but can not take for 10 days, 01/07/21) cefuroxime (Verified Adverse Reaction, Mild, ANXIETY, 01/07/21) codeine (Verified Adverse Reaction, Mild, AGITATION, 01/07/21) doxycycline (Verified Adverse Reaction, Mild, UPSET STOMACH, 01/07/21) lorazepam (Verified Adverse Reaction, Mild, AGITATION, 01/07/21) pregabalin (Verified Adverse Reaction, Mild, ANXIETY, DROWSINESS, 01/07/21) tizanidine (Verified Adverse Reaction, Unknown, 01/07/21) Vital Signs Vital Signs Date Time Temp Pulse Resp B/P (MAP) Pulse Ox O2 Delivery O2 Flow Rate FiO2 02/05/21 09:30 78 128/71 02/05/21 09:27 18 02/05/21 05:14 97.5 100 Room Air Laboratory Data Labs 24H Laboratory Tests 2 02/05/21 06:43: Prothrombin Time 36.9H, Prothromb Time International Ratio 3.62 Current Medications Current Medications Current Medications Medications (Trade) Dose Ordered Sig/Dionte Route PRN Reason Start Time Stop Time Status Last Admin Dose Admin Acetaminophen (Tylenol Tab) 1,000 mg TID PO 01/30/21 16:00 02/05/21 09:28 Amiloride HCl (Midamor) 5 mg DAILY PO 01/31/21 09:00 02/05/21 09:27 Amlodipine Besylate (Norvasc) 5 mg DAILY PO 01/31/21 09:00 01/31/21 16:23 DC 01/31/21 09:53 Amlodipine Besylate (Norvasc) 10 mg DAILY PO 02/01/21 09:00 02/05/21 09:30 Aspirin (Ecotrin) 81 mg DAILY PO 01/31/21 09:00 02/05/21 09:29 Azathioprine (Imuran) 100 mg DAILY PO 01/31/21 09:00 02/05/21 09:29 Bisacodyl (Dulcolax Suppository) 10 mg DAILYPRN PRN [place] CONSTIPATION 01/30/21 12:45 Calcitriol (Rocaltrol) 0.25 mcg MoWeFr@0900 PO 02/02/21 09:00 02/04/21 09:09 Cinacalcet (Sensipar) 30 mg TuThSa@0900 PO 01/31/21 09:00 02/05/21 09:28 Clindamycin HCl (Cleocin) 300 mg QID PO 02/02/21 17:00 02/05/21 09:28 Cyclobenzaprine HCl (Flexeril) 10 mg Q8HP PRN PO SPASMS 01/30/21 12:55 02/05/21 09:28 Digoxin (Lanoxin) 0.125 mg DAILY PO 01/31/21 09:00 02/05/21 09:29 Docusate Sodium (Colace) 100 mg BID PO 01/30/21 21:00 02/05/21 09:29 Gabapentin (Neurontin) 600 mg TID PO 01/30/21 16:00 02/05/21 09:28 Home Med (Med Rec Complete!) ASDIRECTED XX 01/30/21 17:00 01/30/21 17:09 DC Hydroxyzine HCl (Atarax) 50 mg QHS PRN PO insomnia 01/30/21 12:55 02/02/21 20:32 Lactobacillus Acidophilus (Bacid) 1 ea WMHS PO 02/02/21 18:00 02/04/21 20:19 Magnesium Gluconate (Magnesium Gluconate) 1,500 mg BID PO 01/30/21 21:00 02/05/21 09:30 Ondansetron HCl (Zofran Odt) 4 mg Q6HP PRN SL NAUSEA OR VOMITING 01/31/21 13:55 01/31/21 14:02 Oxycodone HCl (Roxicodone, Oxyir) 5 mg Q4HP PRN PO PAIN LEVEL 4-7 01/30/21 12:55 01/31/21 21:12 Oxycodone HCl (Roxicodone, Oxyir) 10 mg Q6HP PRN PO SEVERE PAIN (PS 8-10) 01/31/21 14:40 02/05/21 09:27 Pantoprazole Sodium (Protonix) 40 mg DAILY PO 01/31/21 09:00 02/05/21 09:29 Potassium Phosphate (K-Phos Original) 500 mg BID PO 01/30/21 21:00 02/05/21 09:28 Potassium Chloride (Micro-K Extencaps) 10 meq BID PO 01/30/21 21:00 02/04/21 21:10 DC 02/04/21 20:16 Potassium Chloride (Micro-K Extencaps) 20 meq BID PO 02/05/21 09:00 02/05/21 09:30 Prednisone (Deltasone) 5 mg DAILY PO 01/31/21 09:00 02/05/21 09:29 Senna (Senokot) 1 tab QHS PO 01/30/21 21:00 02/04/21 20:17 Sirolimus (Rapamune) 2 mg DAILY PO 01/31/21 09:00 02/05/21 09:29 Tacrolimus (Prograf) 2 mg QAM PO 01/31/21 09:00 01/30/21 18:39 DC Torsemide (Demadex) 20 mg BID@, PO 01/31/21 17:00 02/05/21 09:28 Torsemide (Demadex) 40 mg BID@,17 PO 01/30/21 17:00 01/31/21 12:54 DC 01/31/21 09:48 Vitamin B Complex/ Vitamin C (Therapeutic B Complex w/C) 1 cap DAILY PO 01/31/21 09:00 02/05/21 09:27 Warfarin Sodium (Coumadin) 2 mg DAILY@17 PO 01/31/21 17:00 Hold 01/31/21 16:17 Warfarin Sodium (Coumadin) 3 mg DAILY@17 PO 01/30/21 17:00 01/31/21 11:31 DC 01/30/21 18:19 FARHAN LAMAR MD February 05, 2021 11:45
[2021-02-05 14:00] VITALS: BP 174/82
[2021-02-05 20:00] VITALS: BP 133/73
[2021-02-05] MEDS: SENNA 8.6 MG TAB (SENOKOT) PO SCH (21:00)
[2021-02-05] MEDS: hydrOXYzine 50 MG TAB PO PRN (23:57)
[2021-02-06] MEDS: oxyCODONE 5MG TAB PO PRN ×4 (00:02→20:55)
[2021-02-06 05:27] VITALS: BP 152/78
[2021-02-06 06:31] LABS: BASO % 0.2 % (0.0-1.0); EOS # 0.1 10^3/uL (0.0-0.5); HEMOGLOBIN 10.1 g/dl (13.5-17.5); LYMPH # 2.2 10^3/uL (1.5-5.0); LYMPH % 19.8 % (24.0-44.0); MEAN CORPUSCULAR HEMOGLOBIN 29.6 pg (27.0-33.0); MEAN CORPUSCULAR HGB CONC 32.6 g/dl (32.0-36.5); MEAN CORPUSCULAR VOLUME 90.9 fl (80.0-96.0); MONO # 1.1 10^3/uL (0.0-0.8); MONO % 9.9 % (2.0-8.0); NEUTROPHILS # 7.4 10^3/uL (1.5-8.5); NEUTROPHILS % 66.7 % (36.0-66.0); PLATELET COUNT, AUTOMATED 380 10^3/uL (150-450); RED BLOOD COUNT 3.41 10^6/uL (4.30-6.10); WHITE BLOOD COUNT 11.1 10^3/uL (4.0-10.0)
[2021-02-06 06:45] LABS: INR 3.61; PROTHROMBIN TIME 36.8 SECONDS (12.5-14.3)
[2021-02-06 06:53] LABS: BLOOD UREA NITROGEN 19 MG/DL (7-18); C REACTIVE PROTEIN QUANTITATIV 9.56 MG/DL (0.00-0.30); CALCIUM LEVEL 9.4 MG/DL (8.8-10.2); CARBON DIOXIDE LEVEL 27 MEQ/L (21-32); CHLORIDE LEVEL 103 MEQ/L (98-107); CREATININE FOR GFR 0.72 MG/DL (0.70-1.30); GLOMERULAR FILTRATION RATE > 60.0 (>42); GLUCOSE, FASTING 130 MG/DL (70-100); POTASSIUM SERUM 3.9 MEQ/L (3.5-5.1); SODIUM LEVEL 135 MEQ/L (136-145)
[2021-02-06 07:09] LABS: ERYTHROCYTE SEDIMENTATION RATE 125 mm/hr (0-20)
[2021-02-06] MEDS: LACTOBACILLUS ACIDOPHILUS CAP (BACID) PO SCH ×4 (07:45→20:56)
[2021-02-06] MEDS: TORSEMIDE 20 MG TAB PO SCH ×2 (07:46→17:22)
[2021-02-06] MEDS: predniSONE 5 MG TAB PO SCH (07:46)
[2021-02-06] MEDS: VITAMIN B COMPLEX/VIT C CAP PO SCH (07:46)
[2021-02-06] MEDS: ACETAMINOPHEN 500 MG TAB PO SCH ×3 (07:46→20:56)
[2021-02-06] MEDS: ASPIRIN 81MG ENTERIC TABLET PO SCH (07:46)
[2021-02-06] MEDS: aMILoride 5 MG TAB PO SCH (07:47)
[2021-02-06] MEDS: GABAPENTIN 300 MG CAP PO SCH ×3 (07:47→20:57)
[2021-02-06] MEDS: CLINDAMYCIN 150MG CAPSULE PO SCH ×4 (07:47→20:55)
[2021-02-06] MEDS: K-PHOS ORIGINAL (POT.ACID PHOSPHATE) 500MG TAB PO SCH ×2 (07:47→20:56)
[2021-02-06] MEDS: CALCITRIOL 0.25 MCG CAP (S0169) PO SCH (07:47)
[2021-02-06] MEDS: PANTOPRAZOLE 40MG TAB (PROTONIX) PO SCH (07:47)
[2021-02-06] MEDS: DIGOXIN 0.125 MG TAB PO SCH (07:48)
[2021-02-06] MEDS: POTASSIUM CHLORIDE 10 MEQ SR TABLET PO SCH ×2 (07:48→20:57)
[2021-02-06] MEDS: REMEDY PHYTOPLEX Z-GUARD PASTE 113GM TUBE (FROM STOREROOM PRODUCT) TOP SCH ×3 (07:49→20:57)
[2021-02-06] MEDS: DOCUSATE SODIUM 100MG CAPSULE PO SCH ×2 (07:50→20:55)
[2021-02-06] MEDS: MAGNESIUM GLUCONATE 500 MG TAB PO SCH ×2 (07:52→20:55)
--- NOTE | 2021-02-06 07:54 | IPNPDOC ---
Date Seen The patient was seen on 02/06/21. Progress Note Patient seen and examined this morning. He was complaining of pain in left shoulder and right flank and his back, but no significant complaints of pain in his stump. On exam, the incision is clean dry and intact with scant serous drainage on dressing, no active drainage or bleeding noted. The posterior bruise appears to be somewhat resolving, but there was an area that was pretty dark purple right near the mid inferior incision, and this had a little bit of denuded skin. We covered this with a small piece of Xeroform. The rest of the incision was thoroughly cleaned and dressed with dry gauze and Kerlix. Kyle wrap was placed in the stump was elevated. The patient tolerated the dressing change well and helped us by elevating his stump. He seemed to have minimal pain with dressing change today. I'm hopeful that the bruised area will heal without challenge, but would monitor closely. With Coumadin, even a very minor trauma can lead to bruising, so we've encouraged the patient to just take care and do the best he can to avoid bumping the stump while he is doing his activities in therapy. Unfortunately, it can be very difficult to completely avoid any trauma. Today, we did not see any erythema induration swelling or signs of infection. Joanie and sutures are intact. There is no purulence or odor. Overall, he seems to be doing very well. Eventually, Joanie will need to come out at postop week 2 or 3, and sutures will need to come out a week later at postop week 3 or 4. Please arrange clinic appointments for the patient if he is outpatient. We appreciate the opportunity to participate in the care of this patient. VS, I&O, 24H, Fishbone Vital Signs/I&O Vital Signs Date Time Temp Pulse Resp B/P (MAP) Pulse Ox O2 Delivery O2 Flow Rate FiO2 02/06/21 05:27 97.4 74 18 152/78 (102) 100 Room Air I&O- Last 24 Hours up to 6 AM 02/06/21 06:00 Intake Total 370 ml Output Total 1725 ml Balance -1355 ml Laboratory Data 24H LABS Laboratory Tests 2 02/06/21 06:19: Immature Granulocyte % (Auto) 2.4, Neutrophils (%) (Auto) 66.7H, Lymphocytes (%) (Auto) 19.8L, Monocytes (%) (Auto) 9.9H, Eosinophils (%) (Auto) 1.0, Basophils ( %) (Auto) 0.2, Neutrophils # (Auto) 7.4, Lymphocytes # (Auto) 2.2, Monocytes # (Auto) 1.1H, Eosinophils # (Auto) 0.1, Basophils # (Auto) 0.0, Nucleated Red Blood Cells % (auto) 0.0, Erythrocyte Sedimentation Rate 125H, Prothrombin Time 36.8H, Prothromb Time International Ratio 3.61, Anion Gap 5L, Glomerular Filtration Rate > 60.0, Calcium Level 9.4, C-Reactive Protein, Quantitative 9.56H CBC/BMP Laboratory Tests 02/06/21 06:19 IVY CASE MD February 06, 2021 07:54
[2021-02-06] MEDS: CYCLOBENZAPRINE 10MG TABLET PO PRN ×2 (07:56→21:00)
[2021-02-06] MEDS: SIROLIMUS 1 MG TAB (RAPAMUNE) PO SCH (10:22)
[2021-02-06 20:30] VITALS: BP 157/81
[2021-02-06] MEDS: SENNA 8.6 MG TAB (SENOKOT) PO SCH (20:55)
[2021-02-06] MEDS: hydrOXYzine 50 MG TAB PO PRN (20:55)
--- NOTE | 2021-02-06 22:17 | IPN ---
PROGRESS NOTE DATE: 02/06/2021 SUBJECTIVE: Mr. Kwon is seen this morning on his bedside. He is currently sitting in the wheelchair. He has been generally doing poorly due to his severe degenerative arthritis and back pain. He has problems with his right shoulder due to rotator cuff tear and is unable to elevate his right arm without supporting with other hand and now he has developed similar problems with his left shoulder. He is quite discouraged today due to pain in his left leg stump following above the knee amputation and now with both shoulders while he has been quite dependent on his arms for positioning himself due to his severe back problems related to spine. His transplant kidney has been functioning well and his congestive heart failure is well compensated. Patient also has severe aortic stenosis and aortic valve replacement has been discussed, however, not any definitive schedule in place as yet. PHYSICAL EXAMINATION: VITALS: Temperature 97.4 degrees Fahrenheit, heart rate 74 per minute, respiratory rate 18 per minute, blood pressure 152/78 mmHg and oxygen saturation 98% on room air. HEENT: Head is atraumatic. There is no JVD or thyroid enlargement. LUNGS: Generally clear to auscultation. HEART: Sounds are irregular in rhythm with systolic murmur grade 2/6. ABDOMEN: Soft and he is wearing an abdominal binder. EXTREMITIES: Without any cyanosis or clubbing. He has chronic hyperpigmentation on both his upper extremities. He has a left above the knee amputation. Right leg has minimal edema. He is unable to raise his arms above the shoulder level by himself. LABORATORY DATA: Today's labs show sodium 135, potassium 3.9, BUN 19, creatinine 0.72, glucose 130 and calcium 9.4. C-reactive protein down to 9.56. WBC 11.1, hemoglobin 10.1, hematocrit 31. INR down to 3.61 today. PROBLEMS: 1. Kidney transplant status: Transplant kidney has been functioning very well with stable function and good urine output. He will continue with prednisone, Sirolimus and Azathioprine as previously. 2. Congestive heart failure: Volume status very well compensated and he remains on Torsemide 20 mg b.i.d. He is also on low dose Amiloride. 3. Hypomagnesemia: His last magnesium level was 1.8 and magnesium level will need to be rechecked again next week. He continues on magnesium supplement. 4. Peripheral vascular disease: Status post left above the knee amputation. Patient is quite discouraged due to multiple comorbid conditions. He continues with rehab. 5. Anemia: His anemia has been stable and does not need any urgent intervention at present. 6. Aortic stenosis: Patient does have significant aortic stenosis, however, he is not in stable condition for any intervention at present. 7. Degenerative disc disease and degenerative arthritis: Patient has significant comorbid problems. He had multiple surgeries for spine reconstruction in the past and now he has worsening degenerative arthritis and possible rotator cuff injuries in both his shoulders. He is quite discouraged today.
[2021-02-07 06:46] VITALS: BP 156/80
[2021-02-07] MEDS: oxyCODONE 5MG TAB PO PRN ×3 (06:47→20:15)
[2021-02-07 08:17] LABS: INR 2.89; PROTHROMBIN TIME 30.9 SECONDS (12.5-14.3)
[2021-02-07] MEDS: REMEDY PHYTOPLEX Z-GUARD PASTE 113GM TUBE (FROM STOREROOM PRODUCT) TOP SCH ×3 (09:00→20:15)
[2021-02-07] MEDS: POTASSIUM CHLORIDE 10 MEQ SR TABLET PO SCH ×2 (09:14→20:15)
[2021-02-07] MEDS: DIGOXIN 0.125 MG TAB PO SCH (09:14)
[2021-02-07] MEDS: PANTOPRAZOLE 40MG TAB (PROTONIX) PO SCH (09:14)
[2021-02-07] MEDS: CINACALCET 30 MG TAB (SENSIPAR) PO SCH (09:14)
[2021-02-07] MEDS: CLINDAMYCIN 150MG CAPSULE PO SCH ×4 (09:15→20:13)
[2021-02-07] MEDS: DOCUSATE SODIUM 100MG CAPSULE PO SCH ×2 (09:15→20:13)
[2021-02-07] MEDS: SIROLIMUS 1 MG TAB (RAPAMUNE) PO SCH (09:15)
[2021-02-07] MEDS: ACETAMINOPHEN 500 MG TAB PO SCH ×3 (09:15→20:13)
[2021-02-07] MEDS: GABAPENTIN 300 MG CAP PO SCH ×3 (09:15→20:15)
[2021-02-07] MEDS: ASPIRIN 81MG ENTERIC TABLET PO SCH (09:15)
[2021-02-07] MEDS: MAGNESIUM GLUCONATE 500 MG TAB PO SCH ×2 (09:15→20:12)
[2021-02-07] MEDS: predniSONE 5 MG TAB PO SCH (09:15)
[2021-02-07] MEDS: K-PHOS ORIGINAL (POT.ACID PHOSPHATE) 500MG TAB PO SCH ×2 (09:16→20:12)
[2021-02-07] MEDS: aMILoride 5 MG TAB PO SCH (09:16)
[2021-02-07] MEDS: CYCLOBENZAPRINE 10MG TABLET PO PRN (09:16)
[2021-02-07] MEDS: TORSEMIDE 20 MG TAB PO SCH ×2 (09:16→16:20)
[2021-02-07] MEDS: VITAMIN B COMPLEX/VIT C CAP PO SCH (09:16)
[2021-02-07] MEDS: BISACODYL 10 MG SUPP PR PRN (09:19)
[2021-02-07] MEDS: LACTOBACILLUS ACIDOPHILUS CAP (BACID) PO SCH ×4 (09:19→20:13)
[2021-02-07 14:00] VITALS: BP 142/94
[2021-02-07] MEDS: SENNA 8.6 MG TAB (SENOKOT) PO SCH (20:12)
[2021-02-07] MEDS: hydrOXYzine 50 MG TAB PO PRN (20:12)
[2021-02-07 20:30] VITALS: BP 135/73
[2021-02-08] MEDS: CYCLOBENZAPRINE 10MG TABLET PO PRN ×2 (01:10→09:20)
[2021-02-08 05:52] VITALS: BP 135/90
[2021-02-08 07:02] LABS: INR 2.57; PROTHROMBIN TIME 28.2 SECONDS (12.5-14.3)
[2021-02-08] MEDS: oxyCODONE 5MG TAB PO PRN ×3 (08:55→23:54)
[2021-02-08] MEDS: REMEDY PHYTOPLEX Z-GUARD PASTE 113GM TUBE (FROM STOREROOM PRODUCT) TOP SCH ×3 (09:00→21:00)
[2021-02-08] MEDS: GABAPENTIN 300 MG CAP PO SCH ×3 (09:21→21:29)
[2021-02-08] MEDS: K-PHOS ORIGINAL (POT.ACID PHOSPHATE) 500MG TAB PO SCH ×2 (09:21→21:31)
[2021-02-08] MEDS: ACETAMINOPHEN 500 MG TAB PO SCH ×3 (09:21→21:30)
[2021-02-08] MEDS: VITAMIN B COMPLEX/VIT C CAP PO SCH (09:21)
[2021-02-08] MEDS: CLINDAMYCIN 150MG CAPSULE PO SCH ×4 (09:21→21:31)
[2021-02-08] MEDS: SIROLIMUS 1 MG TAB (RAPAMUNE) PO SCH (09:22)
[2021-02-08] MEDS: DOCUSATE SODIUM 100MG CAPSULE PO SCH ×2 (09:22→21:29)
[2021-02-08] MEDS: DIGOXIN 0.125 MG TAB PO SCH (09:22)
[2021-02-08] MEDS: LACTOBACILLUS ACIDOPHILUS CAP (BACID) PO SCH ×4 (09:22→21:29)
[2021-02-08] MEDS: MAGNESIUM GLUCONATE 500 MG TAB PO SCH ×2 (09:22→21:31)
[2021-02-08] MEDS: PANTOPRAZOLE 40MG TAB (PROTONIX) PO SCH (09:22)
[2021-02-08] MEDS: ASPIRIN 81MG ENTERIC TABLET PO SCH (09:22)
[2021-02-08] MEDS: POTASSIUM CHLORIDE 10 MEQ SR TABLET PO SCH ×2 (09:23→21:31)
[2021-02-08] MEDS: TORSEMIDE 20 MG TAB PO SCH ×2 (09:23→16:04)
[2021-02-08] MEDS: aMILoride 5 MG TAB PO SCH (09:23)
[2021-02-08] MEDS: predniSONE 5 MG TAB PO SCH (09:24)
--- NOTE | 2021-02-08 12:15 | IPN ---
NEPHROLOGY PROGRESS NOTE DATE: 02/07/2021 SUBJECTIVE: The patient was seen and examined in the Rehab Unit today morning. He was sitting in his wheelchair, trying to do some physical therapy. He reports pain in the left shoulder and the left above knee amputation site. Otherwise he denies any active complaints apart from his baseline chronic multiple joint aches and pains and lower back pain. OBJECTIVE: VITAL SIGNS: Temperature is 98.9 degrees Fahrenheit, blood pressure 135/73, pulse is 78, respiratory rate of 18, saturating 98% on room air. INTAKE AND OUTPUT: Urine output recorded as 1.2 liters yesterday, 1,100 mL so far today since overnight. Weight in the bed scale is not available. PHYSICAL EXAMINATION: GENERAL APPEARANCE: The patient is awake, alert, oriented x3, sitting up in the wheelchair, weak and cachectic. HEAD AND NECK: Extraocular muscles intact. Pupils are equally round and reactive to light. Mucous membranes are moist. Neck is supple. There is no jugular venous distention. CARDIOVASCULAR: S1, S2, regular rate. EXTREMITIES: No edema of the bilateral lower extremities. RESPIRATORY: Chest is clear to auscultation bilaterally. Bilaterally currently no rales or rhonchi. ABDOMEN: Soft, positive bowel sounds, nontender. MUSCULOSKELETAL: The patient has multiple surgical scars in the spine. Left above the knee amputation site has a dressing. 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 The patient is awake and alert, able to move bilateral upper extremities. LAB REVIEW: CBC showed a WBC of 11.1, hemoglobin 10.1, platelet count 380. That is from yesterday. INR is 2.8 today. BMP yesterday showed sodium of 135, potassium 3.9, BUN of 19, creatinine of 0.7. CURRENT INPATIENT MEDICATIONS: The patient's medications were all reviewed by myself. There is no significant change in his medications. ASSESSMENT AND PLAN: 1. Renal allograft status - renal function is stable. Continue current dose of Azathioprine, Sirolimus and Prednisone. 2. Peripheral vascular disease status post left above the knee amputation - The patient is currently in rehab. The rest of the management is as per Vascular Surgery. 3. Chronic hypomagnesemia - continue current dose of Amiloride and Magnesium. 4. Hypertension - continue current dose of Amlodipine. 5. Secondary hyperparathyroidism - continue current dose of Calcitriol and Sensipar. 6. Atrial fibrillation - heart rate is controlled with Digoxin. He is anticoagulated with Coumadin. INR is therapeutic. 7. Chronic hypophosphatemia - continue K-phos tablets. Phosphorous level was still low on February 02, 2021. A repeat level will be checked tomorrow morning.
[2021-02-08 14:00] VITALS: BP 140/78
[2021-02-08] MEDS ORDERED: NALOXONE INJ 0.4MG/1ML VIAL (J2310 PER 1MG) IV PRN (16:15)
[2021-02-08] MEDS: WARFARIN SOD 2MG TAB PO SCH (16:54)
[2021-02-08] MEDS ORDERED: HYDROMORPHONE HCL 0.5 MG/ 0.5 ML SYRINGE (J1170 PER 1) IV ONE (17:00)
--- NOTE | 2021-02-08 18:02 | IPN ---
PROGRESS NOTE DATE: 02/08/2021 SUBJECTIVE: Patient complains of severe pain across the neck, across the upper back, joints in the arm, 10/10 on a pain scale, without nausea, vomiting, chest pain, pressure, tightness, fever or chills. Inadequate control with his Flexeril and oxycodone. PHYSICAL EXAMINATION: VITAL SIGNS: Temperature 98.2, pulse 83, respiratory rate 22, blood pressure 140/78, 97% on room air. GENERAL: Patient is awake, alert, oriented to person, place and time, answering questions appropriately, no distress. No pallor or icterus. Speaks in full sentences. Face is symmetric. LUNGS: Clear to auscultation. No wheezing, rales or rhonchi. HEART: S1, S2. Sinus rhythm. ABDOMEN: Soft, nontender, nondistended. Positive bowel sounds. EXTREMITIES: Patient has a left [id number] amputation which is bandaged. He has muscle spasms and tenderness along the left scapula. LABORATORY DATA: 02/06/2021: Complete blood count and metabolic panel have been reviewed. ASSESSMENT: This is a 76-year-old male admitted to the rehabilitation unit 01/30/2021 with past medical history significant for longstanding atherosclerosis of [place] vessels with unsuccessful angioplasty and emergency [id number] amputation (AKA) on 01/28/2021 with chronic left leg ischemia, chronic atrial fibrillation on digoxin and Coumadin. Coumadin has been held due to elevated INR, currently resumed today due to INR of 2.5, nephrolithiasis in transplanted kidney, ureter stone, ureteral stricture status post percutaneous nephrostomy, tube in the transplanted kidney March 2020, coronary artery disease (CAD) status post stent, chronic anemia, IgA nephropathy, end-stage renal disease since 1999, secondary hyperparathyroidism, chronic hypophosphatemia, hypertension, aortic stenosis, plan for transcatheter aortic valve replacement (TAVR) in January 2021, but postponed due to recent emergency AKA of the left lower extremity due to ischemic leg, neuropathy, chronic constipation, chronic neck pain with degenerative joint disease status post reconstructive surgery on chronic cervical collar. PLAN: Patient is currently extremely uncomfortable, rating his pain as 10/10. He missed a few doses of oxycodone yesterday, therefore, he will be given intravenous Dilaudid via saline lock just for today for breakthrough pain, 0.2 mg, and will be kept on Flexeril 10 mg every 8 hours. Patient can refuse this is the pain is controlled, and oxycodone every 6 hours for breakthrough pain. Otherwise, he will be continued on all his home medications. He is still on Cleocin 300 mg four times a day and he will be resumed back on his home dose of warfarin. MTDD
[2021-02-08 20:00] VITALS: BP 140/76
[2021-02-08] MEDS: SENNA 8.6 MG TAB (SENOKOT) PO SCH (21:29)
[2021-02-08] MEDS: oxyCODONE 5MG TAB PO SCH (21:30)
--- NOTE | 2021-02-08 22:55 | IPN ---
NEPHROLOGY PROGRESS NOTE DATE: 02/08/2021 SUBJECTIVE: Patient was seen and examined at the bedside today morning in the rehab unit. He still reports lower extremity pain, inability to move, bilateral shoulder pains, and he reports his current pain medication is not optimizing his pain right now. OBJECTIVE: VITAL SIGNS: Temperature 98.2 degrees Fahrenheit, blood pressure 140/78, pulse 83, respiratory rate 22, saturating 97% on room air. INTAKE/OUTPUT: Urine output recorded as 1.5 liter yesterday and 1.5 liter so far today since overnight. Weight in the bed scale is 63.4 kg. PHYSICAL EXAMINATION: GENERAL: Patient is awake, alert, oriented x3, in moderate painful distress lying in bed. HEAD/NECK: Extraocular muscles intact. Pupils equally round and reactive to light. Mucous membranes are moist. Neck is supple. No JVD. Old surgical scar in the neck is noted. CVS: S1, S2, regular rate. Trace edema of right lower extremity. RESPIRATORY: Chest is clear to auscultation bilaterally. ABDOMEN: Soft, positive bowel sounds. Old surgical scars are noted. MUSCULOSKELETAL: He has a left above knee amputation site dressing. 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 He is able to communicate. He moves bilateral upper extremities. LAB REVIEW: CBC showed WBC 11.1, hemoglobin 10.1 from February 06 and his BMP is also from February 06 with a creatinine of 0.72. CURRENT INPATIENT MEDICATIONS: Patient's medications were all reviewed by myself. His Oxycodone dose has been increased to 10 mg every 6 hours. No other significant change in the medications. ASSESSMENT AND PLAN: 1. Renal allograft status: Last labs were done two days ago. Next BMP will be checked tomorrow morning. Continue current dose of Sirolimus, Azathioprine and prednisone. 2. Chronic hypomagnesemia: Continue Amiloride and magnesium. 3. Hypertension: It is controlled with current dose of Amlodipine and Amiloride. 4. Secondary hyperparathyroidism: Continue Calcitriol and Sensipar. 5. Atrial fibrillation: Heart rate is controlled with Digoxin, anticoagulation with Coumadin. 6. Hypophosphatemia: Continue K-Phos. 7. Lower back pain and shoulder pain: His opioid pain medications are being increased by rehab services.
[2021-02-08] MEDS: CYCLOBENZAPRINE 10MG TABLET PO SCH (23:54)
[2021-02-08] MEDS: hydrOXYzine 50 MG TAB PO PRN (23:54)
[2021-02-09] MEDS: oxyCODONE 5MG TAB PO SCH ×4 (03:52→23:58)
[2021-02-09 05:14] VITALS: BP 162/74
[2021-02-09] MEDS: REMEDY PHYTOPLEX Z-GUARD PASTE 113GM TUBE (FROM STOREROOM PRODUCT) TOP SCH ×3 (09:00→21:00)
[2021-02-09] MEDS: MAGNESIUM GLUCONATE 500 MG TAB PO SCH ×2 (09:49→21:40)
[2021-02-09] MEDS: PANTOPRAZOLE 40MG TAB (PROTONIX) PO SCH (09:50)
[2021-02-09] MEDS: GABAPENTIN 300 MG CAP PO SCH ×3 (09:50→21:40)
[2021-02-09] MEDS: DOCUSATE SODIUM 100MG CAPSULE PO SCH ×2 (09:50→21:40)
[2021-02-09] MEDS: CYCLOBENZAPRINE 10MG TABLET PO SCH ×3 (09:50→23:58)
[2021-02-09] MEDS: ASPIRIN 81MG ENTERIC TABLET PO SCH (09:50)
[2021-02-09] MEDS: CALCITRIOL 0.25 MCG CAP (S0169) PO SCH (09:50)
[2021-02-09] MEDS: VITAMIN B COMPLEX/VIT C CAP PO SCH (09:52)
[2021-02-09] MEDS: aMILoride 5 MG TAB PO SCH (09:52)
[2021-02-09] MEDS: ACETAMINOPHEN 500 MG TAB PO SCH ×3 (09:53→21:40)
[2021-02-09] MEDS: K-PHOS ORIGINAL (POT.ACID PHOSPHATE) 500MG TAB PO SCH ×2 (09:53→21:40)
[2021-02-09] MEDS: predniSONE 5 MG TAB PO SCH (09:54)
[2021-02-09] MEDS: LACTOBACILLUS ACIDOPHILUS CAP (BACID) PO SCH ×4 (09:54→21:41)
[2021-02-09] MEDS: SIROLIMUS 1 MG TAB (RAPAMUNE) PO SCH (09:54)
[2021-02-09] MEDS: POTASSIUM CHLORIDE 10 MEQ SR TABLET PO SCH ×2 (09:54→21:40)
[2021-02-09] MEDS: TORSEMIDE 20 MG TAB PO SCH ×2 (09:55→17:26)
[2021-02-09] MEDS: DIGOXIN 0.125 MG TAB PO SCH (09:55)
[2021-02-09] MEDS: CLINDAMYCIN 150MG CAPSULE PO SCH ×4 (09:55→21:41)
[2021-02-09] MEDS: oxyCODONE 5MG TAB PO PRN (11:03)
[2021-02-09 11:39] LABS: INR 2.47; PROTHROMBIN TIME 27.3 SECONDS (12.5-14.3)
[2021-02-09 11:43] LABS: BASO # 0.1 10^3/uL (0.0-0.2); BASO % 0.3 % (0.0-1.0); EOS # 0.1 10^3/uL (0.0-0.5); EOS % 0.5 % (0.0-3.0); HEMATOCRIT 32.9 % (42.0-52.0); HEMOGLOBIN 10.8 g/dl (13.5-17.5); LYMPH # 1.9 10^3/uL (1.5-5.0); LYMPH % 12.4 % (24.0-44.0); MEAN CORPUSCULAR HEMOGLOBIN 29.9 pg (27.0-33.0); MEAN CORPUSCULAR HGB CONC 32.8 g/dl (32.0-36.5); MEAN CORPUSCULAR VOLUME 91.1 fl (80.0-96.0); MONO # 1.1 10^3/uL (0.0-0.8); MONO % 7.3 % (2.0-8.0); NEUTROPHILS # 11.7 10^3/uL (1.5-8.5); NEUTROPHILS % 77.1 % (36.0-66.0); PLATELET COUNT, AUTOMATED 477 10^3/uL (150-450); RED BLOOD COUNT 3.61 10^6/uL (4.30-6.10); WHITE BLOOD COUNT 15.1 10^3/uL (4.0-10.0)
[2021-02-09 12:16] LABS: ALBUMIN 2.8 GM/DL (3.2-5.2); BLOOD UREA NITROGEN 19 MG/DL (7-18); CALCIUM LEVEL 10.4 MG/DL (8.8-10.2); CARBON DIOXIDE LEVEL 23 MEQ/L (21-32); CHLORIDE LEVEL 99 MEQ/L (98-107); GLOMERULAR FILTRATION RATE > 60.0 (>42); GLUCOSE, FASTING 120 MG/DL (70-100); PHOSPHORUS LEVEL 2.3 MG/DL (2.5-4.9); POTASSIUM SERUM 4.5 MEQ/L (3.5-5.1); SODIUM LEVEL 131 MEQ/L (136-145)
[2021-02-09 14:00] VITALS: BP 171/93
[2021-02-09 16:08] LABS: C REACTIVE PROTEIN QUANTITATIV 8.24 MG/DL (0.00-0.30)
[2021-02-09] MEDS ORDERED: PILL CUTTER 1 EACH XX PRN (17:05)
[2021-02-09] MEDS ORDERED: oxyCODONE 5MG TAB PO PRN (17:15)
[2021-02-09] MEDS: WARFARIN SOD 2MG TAB PO SCH (17:28)
[2021-02-09 20:00] VITALS: BP 118/72
[2021-02-09] MEDS: SENNA 8.6 MG TAB (SENOKOT) PO SCH (21:40)
[2021-02-09] MEDS: hydrOXYzine 50 MG TAB PO PRN (21:40)
[2021-02-09] MEDS: LIDOCAINE 5% (LIDODERM) PATCH TD SCH (21:41)
[2021-02-10] MEDS ORDERED: VANCOMYCIN HCL 1,000 MG, VIAL MATE ADAPTER 1 EACH in NS 250 ML IV SCH (02:00)
[2021-02-10 05:13] VITALS: BP 125/71
[2021-02-10] MEDS: oxyCODONE 5MG TAB PO SCH ×3 (05:47→18:31)
[2021-02-10 06:52] LABS: BASO % 0.2 % (0.0-1.0); EOS # 0.1 10^3/uL (0.0-0.5); EOS % 0.9 % (0.0-3.0); HEMATOCRIT 31.1 % (42.0-52.0); HEMOGLOBIN 10.1 g/dl (13.5-17.5); LYMPH % 16.5 % (24.0-44.0); MEAN CORPUSCULAR HEMOGLOBIN 29.3 pg (27.0-33.0); MEAN CORPUSCULAR HGB CONC 32.5 g/dl (32.0-36.5); MEAN CORPUSCULAR VOLUME 90.1 fl (80.0-96.0); MONO # 1.1 10^3/uL (0.0-0.8); MONO % 8.8 % (2.0-8.0); NEUTROPHILS # 8.5 10^3/uL (1.5-8.5); NEUTROPHILS % 71.5 % (36.0-66.0); PLATELET COUNT, AUTOMATED 473 10^3/uL (150-450); RED BLOOD COUNT 3.45 10^6/uL (4.30-6.10); WHITE BLOOD COUNT 11.9 10^3/uL (4.0-10.0)
[2021-02-10 07:19] LABS: INR 2.94; PROTHROMBIN TIME 31.3 SECONDS (12.5-14.3)
[2021-02-10] MEDS: REMEDY PHYTOPLEX Z-GUARD PASTE 113GM TUBE (FROM STOREROOM PRODUCT) TOP SCH ×3 (09:00→20:34)
[2021-02-10] MEDS: aMILoride 5 MG TAB PO SCH (09:22)
[2021-02-10] MEDS: PANTOPRAZOLE 40MG TAB (PROTONIX) PO SCH (09:24)
[2021-02-10] MEDS: ACETAMINOPHEN 500 MG TAB PO SCH ×3 (09:25→20:33)
[2021-02-10] MEDS: DIGOXIN 0.125 MG TAB PO SCH (09:26)
[2021-02-10] MEDS: VITAMIN B COMPLEX/VIT C CAP PO SCH (09:26)
[2021-02-10] MEDS: CLINDAMYCIN 150MG CAPSULE PO SCH (09:26)
[2021-02-10] MEDS: MAGNESIUM GLUCONATE 500 MG TAB PO SCH ×2 (09:26→20:32)
[2021-02-10] MEDS: K-PHOS ORIGINAL (POT.ACID PHOSPHATE) 500MG TAB PO SCH ×2 (09:27→20:31)
[2021-02-10] MEDS: DOCUSATE SODIUM 100MG CAPSULE PO SCH ×2 (09:27→20:31)
[2021-02-10] MEDS: predniSONE 5 MG TAB PO SCH (09:27)
[2021-02-10] MEDS: SIROLIMUS 1 MG TAB (RAPAMUNE) PO SCH (09:27)
[2021-02-10] MEDS: GABAPENTIN 300 MG CAP PO SCH ×3 (09:28→20:31)
[2021-02-10] MEDS: TORSEMIDE 20 MG TAB PO SCH ×2 (09:28→16:53)
[2021-02-10] MEDS: CYCLOBENZAPRINE 10MG TABLET PO SCH ×2 (09:28→16:54)
[2021-02-10] MEDS: ASPIRIN 81MG ENTERIC TABLET PO SCH (09:28)
[2021-02-10] MEDS: CINACALCET 30 MG TAB (SENSIPAR) PO SCH (09:28)
[2021-02-10] MEDS: LACTOBACILLUS ACIDOPHILUS CAP (BACID) PO SCH ×4 (09:28→20:32)
[2021-02-10] MEDS: POTASSIUM CHLORIDE 10 MEQ SR TABLET PO SCH ×2 (09:28→20:32)
[2021-02-10] MEDS: **NOTE PATIENT COMMENT** MISC XX SCH (09:30)
--- NOTE | 2021-02-10 10:29 | REP ---
INDICATION: pain r/o fractures. COMPARISON: 01/27/2021 TECHNIQUE: Five views FINDINGS: There is no appreciable change in the appearance of the internal fixators or the C-spine. The bones are markedly demineralized and excessive artifact is seen due to the internal fixators to such a degree that a fracture cannot be ruled out. IMPRESSION: No evidence of definite change compared to the prior exam. CT is recommended with O-MAR software or similar metal artifact reducing software. <Electronically signed by Clint Bhatt > 02/10/21 [id number]
--- NOTE | 2021-02-10 10:56 | REP ---
INDICATION: pain r/o fracture/dislocation. COMPARISON: None. TECHNIQUE: Three views of the left shoulder were performed. FINDINGS: There is hypertrophic degenerative change seen involving the acromioclavicular joint which is moderate to severe. There is evidence of glenohumeral joint space narrowing. There is no acute fracture, dislocation, or subluxation. The bones appear somewhat demineralized. IMPRESSION: No evidence of an acute abnormality. Chronic changes as described above. <Electronically signed by Clint Bhatt > 02/10/21 [id number]
--- NOTE | 2021-02-10 11:51 | IPN ---
PROGRESS NOTE DATE: 02/10/2021 SUBJECTIVE: Patient was seen and examined at the bedside this morning. He is actually sitting up in the wheelchair. He denies any active complaints. He reports that his pain is getting better and he is able to do some physical therapy. OBJECTIVE: Vital signs: Temperature is 97.2 degrees Fahrenheit, blood pressure 141/79, pulse is 80, respiratory rate of 18, saturating 99% on room air. Intake and output: Urine output recorded is 1.5 liters yesterday, 800 mL so far today since overnight. Weight in the bed scale is not available. PHYSICAL EXAMINATION: General: Patient is awake, alert, oriented times three, sitting up in the wheelchair. Head and neck exam: Pupils are equally round and reactive to light. Neck is supple. He has old surgical scars on the back of the neck. Cardiovascular: S1, S2, regular rate. No edema of the right lower extremity. Respiratory: Chest is clear to auscultation bilaterally. Bilateral equal air entry. Abdomen: Soft, old surgical scars are noted. Musculoskeletal: Left above-knee amputation with dressing. Decreased range of motion of bilateral shoulders because of rotator cuff surgery. 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 He is able to follow commands and able to communicate well. LABORATORY REVIEW: CBC showed WBC 11.9, hemoglobin 10.1, platelets are 473. BMP showed sodium 131, potassium 4.5, chloride 99, bicarbonate 23, BUN 19, creatinine of 0.7, calcium was 10.4, phosphorous 2.3. CURRENT INPATIENT MEDICATIONS: Patient's medications were all reviewed by me and because of his hypercalcemia I have stopped his calcitriol for now. His clindamycin has been stopped. Oxycodone has been changed to 7.5 mg by mouth every 6 hours. ASSESSMENT AND PLAN: 1. Renal allograft status. Renal function is stable. Continue sirolimus, prednisone, and azathioprine. 2. Hypertension. Continue with amlodipine and amiloride. 3. Lower extremity edema. It is controlled with combination of torsemide and amiloride. 4. Chronic hypomagnesemia. Continue magnesium with amiloride. 5. Secondary hyperparathyroidism. Continue Sensipar at this time. Calcitriol is being stopped because of hypercalcemia. 6. Hypercalcemia. As mentioned above, calcitriol has been stopped. Okay to continue Sensipar. 7. Chronic hypophosphatemia. Continue current dose of K-Phos.
[2021-02-10 14:00] VITALS: BP 146/81
--- NOTE | 2021-02-10 14:19 | REP ---
INDICATION: r/ fracture. COMPARISON: Comparison is made with cervical spine radiographs from February 09, 2021. Radiographs from January 27, 2021 also reviewed. MRI images from May 14, 2019 are reviewed.. TECHNIQUE: Helical scanning is acquired and overlapping 2 mm high resolution axial images were generated and reviewed at bone and soft tissue window settings. Coronal and sagittal multiplanar re-formations images are generated. FINDINGS: The patient is status post ventral discectomy and fusion plating extensively in the cervical spine from C3 through T1. As seen on the radiographs, dorsal screw gilmar fixation devices been applied bilaterally from C2 through C7 and T1. There is some spray artifact from the metallic components of this extensive fusion procedure. The anterior arch of C1 is developmentally incomplete in the midline. The lamina of C1 appears to be developmentally of fragmented as well. The head is held tilted to the left. On sagittal MPR images, the tip of the dens is noted displaced anteriorly with respect to the inferior tip of the clivus and the C1 arch is displaced anteriorly compared to the foramen magnum as well. This however is unchanged from comparison radiographs and from the May 14, 2019 prior MRI images. There is partially calcific pannus or high degenerative change in the soft tissues posterior to the dens. This appears to produce central canal stenosis at the C1-2 level. No new traumatic subluxation is seen. Vascular calcification is noted in the distal vertebral arteries. There is a methylmethacrylate in the T1 and T2 vertebral body consistent with vertebroplasty. Some methylmethacrylate is seen in the C7 as well. There is no evident acute fracture or subluxation. IMPRESSION: No acute fracture or subluxation. There is a chronic anterior craniocervical subluxation with degenerative pannus and calcification posterior to the dens producing central canal stenosis in the upper cervical canal at C1-C2. This is unchanged from 2019 prior MRI study. Extensive ventral and dorsal fusion hardware throughout the cervical spine C2 through T1. Status post vertebroplasty C7, T1, and T2. 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 <Electronically signed by Rene Warner > 02/10/21 [id number]
[2021-02-10] MEDS ORDERED: VANCOMYCIN HCL 750 MG, VIAL MATE ADAPTER 1 EACH in NS 250 ML IV ONE (17:00)
[2021-02-10] MEDS ORDERED: VANCOMYCIN HCL 500 MG in D5W MINI-BAG PLUS 100 ML IV ONE (18:00)
[2021-02-10] MEDS: SENNA 8.6 MG TAB (SENOKOT) PO SCH (20:31)
[2021-02-10] MEDS: LIDOCAINE 5% (LIDODERM) PATCH TD SCH (20:34)
[2021-02-10 22:00] VITALS: BP 131/75
--- NOTE | 2021-02-10 22:38 | CR ---
INFECTIOUS DISEASE CONSULTATION DATE: 02/10/2021 CONSULTATION REQUESTED BY: Vivian Abdul MD REASON FOR CONSULTATION: Evaluation of right stump erythema and pain with leukocytosis. HISTORY OF PRESENT ILLNESS: Mr. Kwon is a pleasant 76-year-old gentleman with a history of severe peripheral vascular disease, who had failed an angioplasty of the left superficial femoral artery and proximal popliteal artery. The patient had MRSA infections of the left foot and acute leg ischemia. He was admitted on January 28 for an above knee amputation that was done by Dr. Ortez. The patient did fairly well until February 02 when they noticed that he was having some increased swelling and pain of the stump site. The patient had an ecchymosis at that site. There was some serosanguineous discharge. He had elevated white count, but no fever or chills. He was started on Clindamycin on February 02 and that was discontinued on the . He had some nausea and vomiting; he thinks is related to too many pills in the morning. He denies any cough or shortness of breath. The patient states his pain in the stump has worsening since the surgery; he is day #13 from surgery. He has a history of IGA nephropathy and had a renal transplant in 2006. PAST MEDICAL HISTORY: Significant for severe peripheral vascular disease, IGA nephropathy; status post renal transplant in 2006, end-stage renal disease on dialysis from 1999 to 2006, history of nephrolithiasis and transplanted kidney with recurrent urinary tract infection and pyelonephritis with Enterobacter cloacae UTIs. Ureteric stone in August of 2019 causing obstruction of the transplanted kidney; status post nephrostomy; removed in March of 2020, coronary artery disease; status post stents, moderate to severe aortic stenosis, atrial fibrillation, chronic hypertension, nephropathy, iron deficiency anemia, hypomagnesemia and hypophosphatemia, secondary hyperparathyroidism, osteoporosis, gastroesophageal reflux disease, multiple back surgeries and neck surgery. PAST SURGICAL HISTORY: Renal transplantation, ventral hernia repair, incarcerated left inguinal hernia; status post surgery with mesh in August of 2020, laparoscopy for lysis of adhesions with sigmoid colostomy and repair. ALLERGIES: Quinolones, Oxybutynin, Tamsulosin, Ceftriaxone, Codeine, Doxycycline, Lorazepam, Pregabalin, Tizanidine, MEDICATIONS: Lidocaine patch q.h.s., Oxycodone 7.5 mg p.o. every 6 hours, Cyclobenzaprine 10 mg p.o. every 8 hours, potassium 20 mEq p.o. b.i.d., Probiotics one tablet p.o. with meals, Amlodipine 10 mg p.o. daily, Torsemide 20 mg p.o. b.i.d., Warfarin 2 mg p.o. daily, Zofran 4 mg every 6 hours p.r.n., Sirolimus 2 mg p.o. daily, Digoxin 0.125 mg daily, Sensipar 30 mg daily, Azathioprine 100 mg p.o. daily, aspirin 81 mg p.o. daily, Vitamin B Complex one tablet daily, Prednisone 5 mg p.o. daily, Amiloride 5 mg p.o. daily, Pantoprazole 40 mg p.o. daily, Mag gluconate 1500 mg p.o. b.i.d., K-Phos 500 mg p.o. b.i.d., Senokot one tablet p.o. q.h.s., Colace 100 mg p.o. b.i.d., Gabapentin 600 mg p.o. t.i.d., Tylenol p.r.n., Hydroxyzine p.r.n. LABORATORY DATA: White count 15.1 yesterday and today 11.1, hemoglobin 10.1, hematocrit 31.1, platelets 473,000, 71% neutrophils, 16% lymphocytes, 8% monocytes. ESR 125. Sodium 131, potassium 4.5, chloride 99, bicarb 23, BUN 19, creatinine 0.7, glucose 120. Calcium 10.4. Phosphorus 2.3. CRP 8.24 down from 21.2 on 02/01/2021. Albumin 2.8. PTH 94.5. SARS-CoV2 was negative on 01/28/2021. REVIEW OF SYSTEMS: He has some nausea and vomiting especially in the morning when he takes all his pills. Denies any abdominal pain or diarrhea. He has no cough or shortness of breath. He has chronic neck pain and back pain, which are severe with a bulging seroma of the lower lumbar spine from CSF leak. Severe pain in his stump. PHYSICAL EXAMINATION: GENERAL: A pleasant elderly gentleman in no acute distress. HEART: Normal S1, S2 with a systolic ejection murmur 2/6 left upper sternal border. LUNGS: Clear. No wheezes, rales or rhonchi. ABDOMEN: Soft, nontender. No hepatosplenomegaly. BACK: No CVA tenderness. He has a large lumbar surgical scar with a protruded bony area in T11, T12. At the lower lumbar area, there is a fluctuant fluid filled collection. NECK: With mild tenderness. EXTREMITIES: Left stump with sutures in place. There is some erythema with cellulitis inferiorly along the stump especially medially. There is redness, tenderness with ecchymosis. When pressed on the above area, immediately there is some serosanguineous thick somewhat purulent discharge that was cultured and expressed. The patient has significant pain at this site. IMPRESSION: This is a 76-year-old gentleman with severe peripheral vascular disease, history of previous MRSA infection of that same leg of the left foot, resistant to Clindamycin, who had an above knee amputation on 01/28/2021 and had increasing pain, swelling, redness with leukocytosis. Physical exam is suggestive of a cellulitis and possibly a small localized abscess of the stump area medially. He has a history of a renal transplantation in 2006, is immunocompromised on prednisone, Sirolimus and Azathioprine and therefore at risk of infection. PLAN: Discontinue p.o. Clindamycin and switch to I.V. Vancomycin; currently dosed at 1 gram every 12 hours. Wound gram stain and culture have been ordered and done at the bedside by myself. Depending on results, will adjust antibiotics accordingly. Obtain stump ultrasound tomorrow in the morning before his dressing changes and after he gets pain medication. Hopefully, there is no abscess that needs drainage procedure. Will continue to follow. Thank you for the consultation. [id number]
[2021-02-11] MEDS: oxyCODONE 5MG TAB PO SCH ×5 (00:13→23:45)
[2021-02-11] MEDS: CYCLOBENZAPRINE 10MG TABLET PO SCH ×4 (00:13→23:44)
[2021-02-11] MEDS: VANCOMYCIN HCL 1,000 MG, VIAL MATE ADAPTER 1 EACH in NS 250 ML IV SCH ×2 (01:49→13:59)
[2021-02-11 06:08] VITALS: BP 142/70
[2021-02-11 06:54] LABS: INR 2.93; PROTHROMBIN TIME 31.2 SECONDS (12.5-14.3)
[2021-02-11 07:04] LABS: ALBUMIN 2.7 GM/DL (3.2-5.2); BLOOD UREA NITROGEN 22 MG/DL (7-18); CALCIUM LEVEL 9.4 MG/DL (8.8-10.2); CARBON DIOXIDE LEVEL 24 MEQ/L (21-32); CHLORIDE LEVEL 103 MEQ/L (98-107); CREATININE FOR GFR 0.68 MG/DL (0.70-1.30); GLOMERULAR FILTRATION RATE > 60.0 (>42); GLUCOSE, FASTING 129 MG/DL (70-100); MAGNESIUM LEVEL 1.7 MG/DL (1.8-2.4); PHOSPHORUS LEVEL 2.6 MG/DL (2.5-4.9); POTASSIUM SERUM 4.4 MEQ/L (3.5-5.1); SODIUM LEVEL 135 MEQ/L (136-145)
[2021-02-11 09:12] LABS: C REACTIVE PROTEIN QUANTITATIV 6.25 MG/DL (0.00-0.30)
[2021-02-11] MEDS: MAGNESIUM GLUCONATE 500 MG TAB PO SCH ×2 (10:00→22:00)
[2021-02-11] MEDS: LACTOBACILLUS ACIDOPHILUS CAP (BACID) PO SCH ×4 (10:00→22:01)
[2021-02-11] MEDS: SIROLIMUS 1 MG TAB (RAPAMUNE) PO SCH (10:00)
[2021-02-11] MEDS: ASPIRIN 81MG ENTERIC TABLET PO SCH (10:01)
[2021-02-11] MEDS: aMILoride 5 MG TAB PO SCH (10:01)
[2021-02-11] MEDS: K-PHOS ORIGINAL (POT.ACID PHOSPHATE) 500MG TAB PO SCH ×2 (10:01→22:05)
[2021-02-11] MEDS: TORSEMIDE 20 MG TAB PO SCH ×2 (10:01→16:54)
[2021-02-11] MEDS: PANTOPRAZOLE 40MG TAB (PROTONIX) PO SCH (10:01)
[2021-02-11] MEDS: VITAMIN B COMPLEX/VIT C CAP PO SCH (10:01)
[2021-02-11] MEDS: DOCUSATE SODIUM 100MG CAPSULE PO SCH ×2 (10:01→22:00)
[2021-02-11] MEDS: POTASSIUM CHLORIDE 10 MEQ SR TABLET PO SCH ×2 (10:02→21:59)
[2021-02-11] MEDS: GABAPENTIN 300 MG CAP PO SCH ×3 (10:02→22:01)
[2021-02-11] MEDS: ACETAMINOPHEN 500 MG TAB PO SCH ×3 (10:03→22:01)
[2021-02-11] MEDS: REMEDY PHYTOPLEX Z-GUARD PASTE 113GM TUBE (FROM STOREROOM PRODUCT) TOP SCH ×3 (10:05→22:05)
[2021-02-11] MEDS: **NOTE PATIENT COMMENT** MISC XX SCH (10:05)
[2021-02-11] MEDS: DIGOXIN 0.125 MG TAB PO SCH (10:07)
[2021-02-11] MEDS: predniSONE 5 MG TAB PO SCH (10:07)
--- NOTE | 2021-02-11 10:53 | IPNPDOC ---
PM&R Progress Note DATE OF SERVICE: February 09, 2021 [employer] Progress Note Subjective: Patient seen in his room with his stating his back is hurting him and attributes it to lying in bed. He was encouraged to turn himself [id number] to offload his back. He states he pulled his left shoulder the other day in therapy, but is not having pain in his shoulder presently. REVIEW OF SYSTEMS: The following is a completed review of systems and has been reviewed. Review of systems otherwise unremarkable. PAIN: Patient self reports left AKA pain and chronic neck pain EYES: No recent vision changes EARS, NOSE, & THROAT: No throat pain, or dysphagia, or rhinorrhea CARDIOVASCULAR: Denies chest pain or palpitations PULMONARY: Denies shortness of breath GASTROINTESTINAL: Denies constipation/diarrhea GENITOURINARY: denies dysuria MUSCULOSKELETAL: s/p left AKA NEUROLOGICAL: denies tremor HEMATOLOGICAL: +anemia SKIN: left aka PSYCHIATRIC: Unremarkable All other review of systems found to be negative. PHYSICAL EXAMINATION: VITAL SIGNS: Please see below. GENERAL: Pleasant and cooperative. No acute distress. HEENT: PERRL. Extraocular movements intact. Clear conjunctiva CARDIOVASCULAR: irregular rate and rhythm. +systolic murmurs, rubs, or gallops LUNGS: Clear to auscultation bilaterally. No wheezes. No rhonchi ABDOMEN: Soft, nontender, nondistended. Positive bowel sounds. Normal active bowel sounds NEUROLOGICAL: Alert and oriented times three. Cranial nerves II through XII grossly intact. Sensation grossly intact EXTREMITIES: 5-\5 strength bilateral upper extremities. 5-\5 strength right lower extremity. left hip flexor 4/5 RUE edema>LUE (improving) RLE edema (with mild erythema improving) +TTP at lower thoracic spine with an area of bony protuberance, no warmth/erythema Left shoulder, minimal pain with PROM, no swelling or bruising SKIN: left AKA with ecchymosis, lawrence-incision with maceration and scant serous drainage, + ecchymotic induration on posterior thigh just below incision ASSESSMENT:76-year-old M with past medical history of IgA nephropathy s/p bilat nephrectomy with transplant, Afib, Aortic stenosis who presents status post left BKA PLAN: 1. Rehab- PT/OT advance mobility and ADLs, strengthen/stretch/maintain ROM all 4limbs, teach limb care 2. Ortho hx of chronic neck pain with multiple surgeries- soft cervical collar, gabapentin, flexeril, amd oxycodone 3. Vasc- sp left AKA on 01-28-21, dressing changes adjusted to protect incision and lawrence-incision from maceration, c/u clindamycin for concern for cellulitis, c/u to monitor CRP/ESR- f/u Dr. Ortez 4. CArdiac- hx of Afib on coumadin (on hold bc supratherapeutic) c/u digoxin and monitor daily INRs -Aortic stenosis will need to reschedule TAVR- c/u amiloride and torsemide - CAD- on ASA -HTN c/u amlodipine 5. Resp- monitor for infection 6. Renal- IgA nephropathy s/p renal transplant- c/u imuran, sirolimus, and prednisone-renal consulted, recs appreciated -c/u magnesium and phosphate supplement for hypomagnesemia and hypophosphatemia -calcitriol and Sensipar 7. DVT ppx- on coumadin 8. GI ppx- protonix 9. Pain- tylenol, flexeril, oxycodone changing to 7.5mg q6h standing, c/u gabapentin -low back pain- patient with hx of lumbar surgery, recent lumbar CTs showing no fracture, pain is non-radiating, c/u lidoderm patch to low back -will order left shoulder xray to r/o dislocation/fracture given recent strain in therapy while putting new weight through his arms with AKA, clinical suspicion low - per family request will also order Cervical spine X-ray as family concerned he may have new fracture in his neck where he has had prior surgery, patient not complaining of increased neck pain today 10. Psych- insomnia- atarax 11. DIspo- 02-13-21 to home Allergies Coded Allergies: Quinolones (Verified Allergy, Unknown, 01/07/21) oxybutynin (Verified Allergy, Unknown, 01/07/21) tamsulosin (Verified Allergy, Unknown, 01/07/21) ciprofloxacin (Verified Adverse Reaction, Intermediate, HEART RACES, 01/07/21) levofloxacin (Verified Adverse Reaction, Intermediate, HEART RACES, 01/07/21) amoxicillin (Verified Adverse Reaction, Mild, can take few prior to dentist but can not take for 10 days, 01/07/21) cefuroxime (Verified Adverse Reaction, Mild, ANXIETY, 01/07/21) codeine (Verified Adverse Reaction, Mild, AGITATION, 01/07/21) doxycycline (Verified Adverse Reaction, Mild, UPSET STOMACH, 01/07/21) lorazepam (Verified Adverse Reaction, Mild, AGITATION, 01/07/21) pregabalin (Verified Adverse Reaction, Mild, ANXIETY, DROWSINESS, 01/07/21) tizanidine (Verified Adverse Reaction, Unknown, 01/07/21) Vital Signs Vital Signs Date Time Temp Pulse Resp B/P (MAP) Pulse Ox O2 Delivery O2 Flow Rate FiO2 02/11/21 10:07 94 02/11/21 10:03 187/87 02/11/21 06:08 96.7 20 100 Room Air Laboratory Data CBC/BMP Laboratory Tests 02/11/21 06:23 Labs 24H Laboratory Tests 2 02/11/21 06:23: Prothrombin Time 31.2H, Prothromb Time International Ratio 2.93, Anion Gap 8, Glomerular Filtration Rate > 60.0, Calcium Level 9.4, Whole Blood Ionized Calcium 5.0, Phosphorus Level 2.6, Magnesium Level 1.7L, C-Reactive Protein, Qu antitative 6.25H, Albumin 2.7L Microbiology Microbiology 02/10/21 Gram Stain - Final, Resulted 02/10/21 Wound Culture, Resulted Pending Current Medications Current Medications Current Medications Medications (Trade) Dose Ordered Sig/Dionte Route PRN Reason Start Time Stop Time Status Last Admin Dose Admin Acetaminophen (Tylenol Tab) 1,000 mg TID PO 01/30/21 16:00 02/11/21 10:03 Amiloride HCl (Midamor) 5 mg DAILY PO 01/31/21 09:00 02/11/21 10:01 Amlodipine Besylate (Norvasc) 5 mg DAILY PO 01/31/21 09:00 01/31/21 16:23 DC 01/31/21 09:53 Amlodipine Besylate (Norvasc) 10 mg DAILY PO 02/01/21 09:00 02/11/21 10:03 Aspirin (Ecotrin) 81 mg DAILY PO 01/31/21 09:00 02/11/21 10:01 Azathioprine (Imuran) 100 mg DAILY PO 01/31/21 09:00 02/11/21 10:00 Bisacodyl (Dulcolax Suppository) 10 mg DAILYPRN PRN [place] CONSTIPATION 01/30/21 12:45 02/07/21 09:19 Calcitriol (Rocaltrol) 0.25 mcg MoWeFr@0900 PO 02/02/21 09:00 02/10/21 08:05 DC 02/09/21 09:50 Cinacalcet (Sensipar) 30 mg TuThSa@0900 PO 01/31/21 09:00 02/10/21 09:28 Clindamycin HCl (Cleocin) 300 mg QID PO 02/02/21 17:00 02/10/21 11:02 DC 02/10/21 09:26 Cyclobenzaprine HCl (Flexeril) 10 mg Q8H PO 02/09/21 00:00 02/11/21 10:01 Cyclobenzaprine HCl (Flexeril) 10 mg Q8HP PRN PO SPASMS 01/30/21 12:55 02/08/21 16:12 DC 02/08/21 09:20 Digoxin (Lanoxin) 0.125 mg DAILY PO 01/31/21 09:00 02/11/21 10:07 Docusate Sodium (Colace) 100 mg BID PO 01/30/21 21:00 02/11/21 10:01 Gabapentin (Neurontin) 600 mg TID PO 01/30/21 16:00 02/11/21 10:02 Home Med (Med Rec Complete!) ASDIRECTED XX 01/30/21 17:00 01/30/21 17:09 DC Hydroxyzine HCl (Atarax) 50 mg QHS PRN PO insomnia 01/30/21 12:55 02/09/21 21:40 Lactobacillus Acidophilus (Bacid) 1 ea WMHS PO 02/02/21 18:00 02/11/21 10:00 Lidocaine (Lidoderm Patch) 1 patch QHS TD 02/09/21 21:00 02/10/21 20:34 Magnesium Gluconate (Magnesium Gluconate) 1,500 mg BID PO 01/30/21 21:00 02/11/21 10:00 Naloxone HCl (Narcan) 0.1 mg Q5MP PRN IV RESP. RATE < 10 02/08/21 16:15 Non-Formulary Medication ( See Comment Field Below ) REMOVE LIDODERM PATCH DAILY XX 02/10/21 09:00 02/11/21 10:05 Ondansetron HCl (Zofran Odt) 4 mg Q6HP PRN SL NAUSEA OR VOMITING 01/31/21 13:55 01/31/21 14:02 Oxycodone HCl (Roxicodone, Oxyir) 5 mg Q4HP PRN PO PAIN LEVEL 4-7 01/30/21 12:55 02/08/21 16:12 DC 01/31/21 21:12 Oxycodone HCl (Roxicodone, Oxyir) 5 mg Q6H PO 02/08/21 22:00 02/09/21 12:26 DC 02/09/21 09:51 Oxycodone HCl (Roxicodone, Oxyir) 7.5 mg Q6H PO 02/09/21 18:00 02/11/21 05:18 Oxycodone HCl (Roxicodone, Oxyir) 10 mg Q6HP PRN PO SEVERE PAIN (PS 8-10) 02/09/21 17:15 02/09/21 17:17 DC Oxycodone HCl (Roxicodone, Oxyir) 10 mg Q6HP PRN PO SEVERE PAIN (PS 8-10) 01/31/21 14:40 02/09/21 16:59 DC 02/09/21 11:03 Pantoprazole Sodium (Protonix) 40 mg DAILY PO 01/31/21 09:00 02/11/21 10:01 Potassium Phosphate (K-Phos Original) 500 mg BID PO 01/30/21 21:00 02/11/21 10:01 Potassium Chloride (Micro-K Extencaps) 10 meq BID PO 01/30/21 21:00 02/04/21 21:10 DC 02/04/21 20:16 Potassium Chloride (Micro-K Extencaps) 20 meq BID PO 02/05/21 09:00 02/11/21 10:02 Prednisone (Deltasone) 5 mg DAILY PO 01/31/21 09:00 02/11/21 10:07 Senna (Senokot) 1 tab QHS PO 01/30/21 21:00 02/10/21 20:31 Sirolimus (Rapamune) 2 mg DAILY PO 01/31/21 09:00 02/11/21 10:00 Tacrolimus (Prograf) 2 mg QAM PO 01/31/21 09:00 01/30/21 18:39 DC Torsemide (Demadex) 20 mg BID@, PO 01/31/21 17:00 02/11/21 10:01 Torsemide (Demadex) 40 mg BID@09,17 PO 01/30/21 17:00 01/31/21 12:54 DC 01/31/21 09:48 Vancomycin HCl 1000 mg/IV Miscellaneous Supplies 1 each/ Sodium Chloride 270 ml @ 270 mls/hr Q12H IV 02/10/21 02:00 02/10/21 16:36 DC Vancomycin HCl 1000 mg/IV Miscellaneous Supplies 1 each/ Sodium Chloride 270 ml @ 270 mls/hr Q12H IV 02/11/21 02:00 02/11/21 01:49 Vitamin B Complex/ Vitamin C (Therapeutic B Complex w/C) 1 cap DAILY PO 01/31/21 09:00 02/11/21 10:01 Warfarin Sodium (Coumadin) 2 mg DAILY@17 PO 01/31/21 17:00 Hold 02/09/21 17:28 Warfarin Sodium (Coumadin) 3 mg DAILY@17 PO 01/30/21 17:00 01/31/21 11:31 DC 01/30/21 18:19 FARHAN LAMAR MD February 11, 2021 10:53
--- NOTE | 2021-02-11 11:04 | IPNPDOC ---
PM&R Progress Note DATE OF SERVICE: February 10, 2021 [employer] Progress Note Subjective: Patient seen in his room with his family stating although he has pain everywhere that he does not want to increase the dose of his oxycodone from 7.5mg to 10mg, but is glad he is getting it every 6 hours without having to ask. REVIEW OF SYSTEMS: The following is a completed review of systems and has been reviewed. Review of systems otherwise unremarkable. PAIN: Patient self reports left AKA pain and chronic neck pain EYES: No recent vision changes EARS, NOSE, & THROAT: No throat pain, or dysphagia, or rhinorrhea CARDIOVASCULAR: Denies chest pain or palpitations PULMONARY: Denies shortness of breath GASTROINTESTINAL: Denies constipation/diarrhea GENITOURINARY: denies dysuria MUSCULOSKELETAL: s/p left AKA NEUROLOGICAL: denies tremor HEMATOLOGICAL: +anemia SKIN: left aka PSYCHIATRIC: Unremarkable All other review of systems found to be negative. PHYSICAL EXAMINATION: VITAL SIGNS: Please see below. GENERAL: Pleasant and cooperative. No acute distress. HEENT: PERRL. Extraocular movements intact. Clear conjunctiva CARDIOVASCULAR: irregular rate and rhythm. +systolic murmurs, rubs, or gallops LUNGS: Clear to auscultation bilaterally. No wheezes. No rhonchi ABDOMEN: Soft, nontender, nondistended. Positive bowel sounds. Normal active bowel sounds NEUROLOGICAL: Alert and oriented times three. Cranial nerves II through XII grossly intact. Sensation grossly intact EXTREMITIES: 5-\\5 strength bilateral upper extremities. 5-\\5 strength right lower extremity. left hip flexor 4/5 RUE edema>LUE (improving) RLE edema (with mild erythema improving) +TTP at lower thoracic spine with an area of bony protuberance, no warmth/erythema Left shoulder, minimal pain with PROM, no swelling or bruising SKIN: left AKA with ecchymosis, lawrence-incision with more serous drainage and dry necrotic tissue, + ecchymotic induration on posterior thigh just below incision ASSESSMENT:76-year-old M with past medical history of IgA nephropathy s/p bilat nephrectomy with transplant, Afib, Aortic stenosis who presents status post left BKA PLAN: 1. Rehab- PT/OT advance mobility and ADLs, strengthen/stretch/maintain ROM all 4limbs, teach limb care 2. Ortho hx of chronic neck pain with multiple surgeries- soft cervical collar, gabapentin, flexeril, amd oxycodone 3. Vasc- sp left AKA on 01-28-21, dressing changes adjusted to protect incision and lawrence-incision from maceration, c/u clindamycin for concern for cellulitis, CRP is trending down, however will consult ID for further advice given portion of residual limb now appears necrotic despite BID wound care- Dr. Ortez aware and recommends high protein diet, BID dressing changes, and try to avoid local trauma 4. CArdiac- hx of Afib on coumadin (on hold bc supra-therapeutic) c/u digoxin and monitor daily INRs -Aortic stenosis will need to reschedule TAVR- c/u amiloride and torsemide - CAD- on ASA -HTN c/u amlodipine 5. Resp- monitor for infection 6. Renal- IgA nephropathy s/p renal transplant- c/u imuran, sirolimus, and prednisone-renal consulted, recs appreciated -c/u magnesium and phosphate supplement for hypomagnesemia and hypophosphatemia -calcitriol and Sensipar 7. DVT ppx- on coumadin 8. GI ppx- protonix 9. Pain- tylenol, flexeril, oxycodone changing to 7.5mg q6h standing, c/u gabapentin -low back pain- patient with hx of lumbar surgery, recent lumbar CTs showing no fracture, pain is non-radiating, c/u lidoderm patch to low back -ordered left shoulder xray to r/o dislocation/fracture given recent strain in therapy while putting new weight through his arms with AKA, clinical suspicion low -left shoulder Xray "There is evidence of glenohumeral joint space narrowing. There is no acute fracture, dislocation, or subluxation." - per family request ordered Cervical spine X-ray as family concerned he may have new fracture in his neck where he has had prior surgery- Xray negative for new fracture, CT neck ordered as well showing, "No acute fracture or subluxation. There is a chronic anterior craniocervical subluxation with degenerative pannus and calcification posterior to the dens producing central canal stenosis in the upper cervical canal at C1-C2. This is unchanged from 2019 prior MRI study. Extensive ventral and dorsal fusion hardware throughout the cervical spine C2 through T1. Status post vertebroplasty C7, T1, and T2. 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 Psych- insomnia- atarax 11. DIspo- 02-13-21 to home Allergies Coded Allergies: Quinolones (Verified Allergy, Unknown, 01/07/21) oxybutynin (Verified Allergy, Unknown, 01/07/21) tamsulosin (Verified Allergy, Unknown, 01/07/21) ciprofloxacin (Verified Adverse Reaction, Intermediate, HEART RACES, 01/07/21) levofloxacin (Verified Adverse Reaction, Intermediate, HEART RACES, 01/07/21) amoxicillin (Verified Adverse Reaction, Mild, can take few prior to dentist but can not take for 10 days, 01/07/21) cefuroxime (Verified Adverse Reaction, Mild, ANXIETY, 01/07/21) codeine (Verified Adverse Reaction, Mild, AGITATION, 01/07/21) doxycycline (Verified Adverse Reaction, Mild, UPSET STOMACH, 01/07/21) lorazepam (Verified Adverse Reaction, Mild, AGITATION, 01/07/21) pregabalin (Verified Adverse Reaction, Mild, ANXIETY, DROWSINESS, 01/07/21) tizanidine (Verified Adverse Reaction, Unknown, 01/07/21) Vital Signs Vital Signs Date Time Temp Pulse Resp B/P (MAP) Pulse Ox O2 Delivery O2 Flow Rate FiO2 02/11/21 10:07 94 02/11/21 10:03 187/87 02/11/21 06:08 96.7 20 100 Room Air Laboratory Data CBC/BMP Laboratory Tests 02/11/21 06:23 Labs 24H Laboratory Tests 2 02/11/21 06:23: Prothrombin Time 31.2H, Prothromb Time International Ratio 2.93, Anion Gap 8, Glomerular Filtration Rate > 60.0, Calcium Level 9.4, Whole Blood Ionized Calcium 5.0, Phosphorus Level 2.6, Magnesium Level 1.7L, C-Reactive Protein, Quantitative 6.25H, Albumin 2.7L Microbiology Microbiology 02/10/21 Gram Stain - Final, Resulted 02/10/21 Wound Culture, Resulted Pending Current Medications Current Medications Current Medications Medications (Trade) Dose Ordered Sig/Dionte Route PRN Reason Start Time Stop Time Status Last Admin Dose Admin Acetaminophen (Tylenol Tab) 1,000 mg TID PO 01/30/21 16:00 02/11/21 10:03 Amiloride HCl (Midamor) 5 mg DAILY PO 01/31/21 09:00 02/11/21 10:01 Amlodipine Besylate (Norvasc) 5 mg DAILY PO 01/31/21 09:00 01/31/21 16:23 DC 01/31/21 09:53 Amlodipine Besylate (Norvasc) 10 mg DAILY PO 02/01/21 09:00 02/11/21 10:03 Aspirin (Ecotrin) 81 mg DAILY PO 01/31/21 09:00 02/11/21 10:01 Azathioprine (Imuran) 100 mg DAILY PO 01/31/21 09:00 02/11/21 10:00 Bisacodyl (Dulcolax Suppository) 10 mg DAILYPRN PRN [place] CONSTIPATION 01/30/21 12:45 02/07/21 09:19 Calcitriol (Rocaltrol) 0.25 mcg MoWeFr@0900 PO 02/02/21 09:00 02/10/21 08:05 DC 02/09/21 09:50 Cinacalcet (Sensipar) 30 mg TuThSa@0900 PO 01/31/21 09:00 02/10/21 09:28 Clindamycin HCl (Cleocin) 300 mg QID PO 02/02/21 17:00 02/10/21 11:02 DC 02/10/21 09:26 Cyclobenzaprine HCl (Flexeril) 10 mg Q8H PO 02/09/21 00:00 02/11/21 10:01 Cyclobenzaprine HCl (Flexeril) 10 mg Q8HP PRN PO SPASMS 01/30/21 12:55 02/08/21 16:12 DC 02/08/21 09:20 Digoxin (Lanoxin) 0.125 mg DAILY PO 01/31/21 09:00 02/11/21 10:07 Docusate Sodium (Colace) 100 mg BID PO 01/30/21 21:00 02/11/21 10:01 Gabapentin (Neurontin) 600 mg TID PO 01/30/21 16:00 02/11/21 10:02 Home Med (Med Rec Complete!) ASDIRECTED XX 01/30/21 17:00 01/30/21 17:09 DC Hydroxyzine HCl (Atarax) 50 mg QHS PRN PO insomnia 01/30/21 12:55 02/09/21 21:40 Lactobacillus Acidophilus (Bacid) 1 ea WMHS PO 02/02/21 18:00 02/11/21 10:00 Lidocaine (Lidoderm Patch) 1 patch QHS TD 02/09/21 21:00 02/10/21 20:34 Magnesium Gluconate (Magnesium Gluconate) 1,500 mg BID PO 01/30/21 21:00 02/11/21 10:00 Naloxone HCl (Narcan) 0.1 mg Q5MP PRN IV RESP. RATE < 10 02/08/21 16:15 Non-Formulary Medication ( See Comment Field Below ) REMOVE LIDODERM PATCH DAILY XX 02/10/21 09:00 02/11/21 10:05 Ondansetron HCl (Zofran Odt) 4 mg Q6HP PRN SL NAUSEA OR VOMITING 01/31/21 13:55 01/31/21 14:02 Oxycodone HCl (Roxicodone, Oxyir) 5 mg Q4HP PRN PO PAIN LEVEL 4-7 01/30/21 12:55 02/08/21 16:12 DC 01/31/21 21:12 Oxycodone HCl (Roxicodone, Oxyir) 5 mg Q6H PO 02/08/21 22:00 02/09/21 12:26 DC 02/09/21 09:51 Oxycodone HCl (Roxicodone, Oxyir) 7.5 mg Q6H PO 02/09/21 18:00 02/11/21 05:18 Oxycodone HCl (Roxicodone, Oxyir) 10 mg Q6HP PRN PO SEVERE PAIN (PS 8-10) 02/09/21 17:15 02/09/21 17:17 DC Oxycodone HCl (Roxicodone, Oxyir) 10 mg Q6HP PRN PO SEVERE PAIN (PS 8-10) 01/31/21 14:40 02/09/21 16:59 DC 02/09/21 11:03 Pantoprazole Sodium (Protonix) 40 mg DAILY PO 01/31/21 09:00 02/11/21 10:01 Potassium Phosphate (K-Phos Original) 500 mg BID PO 01/30/21 21:00 02/11/21 10:01 Potassium Chloride (Micro-K Extencaps) 10 meq BID PO 01/30/21 21:00 02/04/21 21:10 DC 02/04/21 20:16 Potassium Chloride (Micro-K Extencaps) 20 meq BID PO 02/05/21 09:00 02/11/21 10:02 Prednisone (Deltasone) 5 mg DAILY PO 01/31/21 09:00 02/11/21 10:07 Senna (Senokot) 1 tab QHS PO 01/30/21 21:00 02/10/21 20:31 Sirolimus (Rapamune) 2 mg DAILY PO 01/31/21 09:00 02/11/21 10:00 Tacrolimus (Prograf) 2 mg QAM PO 01/31/21 09:00 01/30/21 18:39 DC Torsemide (Demadex) 20 mg BID@, PO 01/31/21 17:00 02/11/21 10:01 Torsemide (Demadex) 40 mg BID@ PO 01/30/21 17:00 01/31/21 12:54 DC 01/31/21 09:48 Vancomycin HCl 1000 mg/IV Miscellaneous Supplies 1 each/ Sodium Chloride 270 ml @ 270 mls/hr Q12H IV 02/10/21 02:00 02/10/21 16:36 DC Vancomycin HCl 1000 mg/IV Miscellaneous Supplies 1 each/ Sodium Chloride 270 ml @ 270 mls/hr Q12H IV 02/11/21 02:00 02/11/21 01:49 Vitamin B Complex/ Vitamin C (Therapeutic B Complex w/C) 1 cap DAILY PO 01/31/21 09:00 02/11/21 10:01 Warfarin Sodium (Coumadin) 2 mg DAILY@17 PO 01/31/21 17:00 Hold 02/09/21 17:28 Warfarin Sodium (Coumadin) 3 mg DAILY@17 PO 01/30/21 17:00 01/31/21 11:31 DC 01/30/21 18:19 FARHAN LAMAR MD February 11, 2021 11:04
--- NOTE | 2021-02-11 12:44 | IPN ---
PROGRESS NOTE DATE: 02/11/2021 SUBJECTIVE: Patient was seen and examined at the bedside this morning. He is afebrile, hemodynamically stable. He denies any active complaint at this time. He reports that his pain is better optimized. OBJECTIVE: Vital signs: Temperature is 96.7 degrees Fahrenheit, blood pressure 142/70, pulse is 75, respiratory rate of 20, saturating 100% on room air. Intake and output: Urine output recorded is 300 mL since overnight. Weight in the bed scale is not available. PHYSICAL EXAMINATION: General: Patient is awake, alert, oriented times three, sitting up, no apparent distress. Head and neck exam: Extraocular muscles intact. Pupils equally round and reactive to light. Mucous membranes are moist. Neck is supple, old surgical scar is noted. Cardiovascular: S1, S2. No edema of the lower extremities. Respiratory: Chest is clear to auscultation bilaterally. Bilateral equal air entry. Abdomen: Soft, old surgical scars are noted. Musculoskeletal: Left above-knee amputation site has a dressing. Central nervous system (HOGSHEAD DUMPER): No focal deficit. Power is 5/5 in upper extremities. He has decreased range of movement of the shoulders because of rotator cuff injuries. LABORATORY REVIEW: CBC from yesterday showed a hemoglobin of 10.1. BMP done this morning showed sodium 135, potassium 4.4, chloride 103, bicarbonate 24, BUN 22, creatinine is 0.6, calcium 9.4, phosphorous 1.7, albumin 2.7, C-reactive protein has improved to 6.2. Microbiology: Stump cultures were sent yesterday which are pending. CURRENT INPATIENT MEDICATIONS: Patient's medications were all reviewed by me. He was started on vancomycin IV yesterday. ASSESSMENT AND PLAN: 1. Renal allograft status. Patient continues to be on sirolimus, prednisone, and azathioprine. 2. Hypertension. Blood pressure is controlled with amiloride and amlodipine. 3. Peripheral vascular disease and left above-knee amputation. Patient got culture sent, looks like the stump looked infected. He has been started on IV vancomycin. Dose adjustment is as per pharmacology. 4. Chronic hypomagnesemia. Continue oral magnesium and amiloride. 5. Secondary hyperparathyroidism. Continue Sensipar at this time. Calcitriol was stopped because of hypercalcemia and hypercalcemia is better now. 6. Anemia in chronic kidney disease. Hemoglobin level is stable at above 10. No need of erythropoiesis-stimulating agent (MAEVE) administration at this time.
--- NOTE | 2021-02-11 13:07 | IPNPDOC ---
Text Note Date of Service The patient was seen on 02/11/21. NOTE Patient seen and examined. No new overnight events. PHYSICAL EXAMINATION: General: Patient is awake, alert, oriented times three. Head and neck exam: Pupils are equally round and reactive to light. Neck is supple. He has old surgical scars on the back of the neck. Cardiovascular: S1, S2, regular rate. No edema of the right lower extremity. Respiratory: Chest is clear to auscultation bilaterally. Bilateral equal air entry. Abdomen: Soft, old surgical scars are noted. Musculoskeletal: Left above-knee amputation with dressing. Decreased range of motion of bilateral shoulders because of rotator cuff surgery. 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 He is able to follow commands and able to communicate well. Assessment and Plan This is a very pleasant 76-year-old gentleman with multiple medical problems and a long-standing history of atherosclerosis of the [place] arteries who over the past 2 months has had progressively worse to rest pain in the left foot, and developed ulcerations between the fourth and fifth toe and at the base of the fourth and fifth toes on the plantar surface. He saw Dr. Monique who ordered an arterial study and the patient was appropriately referred to Vascular for revascularization. Angiography of the left leg by Dr Alex showed blockages in the SFA and Popliteal artery. Had successful Angioplasty left superficial femoral artery and proximal popliteal artery. He also had chronic total occlusions left anterior tibial artery, left posterior tibial artery, left peroneal artery. Tried Multiple repeat angioplasties of left anterior tibial artery, left posterior tibial artery, left peroneal artery which were unfortunately successful. So the patient was admitted for above knee amputation for acute left leg ischemia. He is s/p AKA on 01/28/21 nor in ARU getting acute rehab. 1. Acute on Chronic left leg ischemia unsuccessful angioplasties and had emergent left AKA on 01/28/21 Pt/OT as per ARU 2. Chronic Afib cont Digoxin and coumadin INR jumped form 1.4 to 2.9 today will hold coumadin today. 3. H/o Nephrolithiasis in transplanted kidney and ureteric stone and ureteric stricture s/p perc nephrostomy tube in the transplanted kidney removed in march 2020 Now no issues. Consult nephrology prn. 4. CAD: s/p stent 03/19/20. Cont ASA and coumadin 5. Chronic anemia iron deficiency. 6. IgA Nephropathy/ ESRD since 1999 s/p R renal transplant 2006 C/w azathioprine, sirolimus, prednisone calcitriol, consult nephrology prn 7. Secondary hyperparathyroidism: Calcitriol 8. Chronic Hypophosphatemia continue nutraphos. 9. HTN amlodipine, amiloride, torsemide 10.Aortic Stenosis Was planned for a TAVR in January 2021 11. Neuropathy: Gabapentin , cymbalta, percocet 12. Chronic back pain and neck pain with significant degenerative spine changes, status post reconstructive surgery. Gabapentin , cymbalta, percocet Disposition as per primary. VS,Fishbone, I+O VS, Fishbone, I+O Laboratory Tests 02/11/21 06:23 Vital Signs Date Time Temp Pulse Resp B/P (MAP) Pulse Ox O2 Delivery O2 Flow Rate FiO2 02/11/21 12:22 18 02/11/21 10:07 94 02/11/21 10:03 187/87 02/11/21 06:08 96.7 100 Room Air I&O- Last 24 Hours up to 6 AM 02/11/21 06:00 Intake Total 1205 ml Output Total 1650 ml Balance -445 ml HERMILA LIANG MD February 11, 2021 13:07
[2021-02-11 14:00] VITALS: BP 144/68
[2021-02-11] MEDS ORDERED: VANCOMYCIN HCL 500 MG in D5W MINI-BAG PLUS 100 ML IV ONE (16:00)
[2021-02-11 20:00] VITALS: BP 154/89
--- NOTE | 2021-02-11 20:11 | REP ---
INDICATION: stump pain and swelling. COMPARISON: None. TECHNIQUE: Real-time sonographic evaluation of left lower extremity stump performed in the region of swelling and redness. Patient is status post below-knee amputation. FINDINGS: In the posterolateral soft tissues there is a complex fluid collection which measures 3.8 x 2.1 x 4.0 cm. IMPRESSION: Complex fluid collection posterolateral soft tissues 3.8 x 2.1 x 4.0 cm. This may represent postsurgical hematoma/seroma versus abscess. <Electronically signed by Fantasma Dunn > 02/11/212006
[2021-02-11] MEDS: SENNA 8.6 MG TAB (SENOKOT) PO SCH (22:00)
[2021-02-11] MEDS: LIDOCAINE 5% (LIDODERM) PATCH TD SCH (22:02)
[2021-02-12] MEDS: VANCOMYCIN HCL 1,000 MG, VIAL MATE ADAPTER 1 EACH in NS 250 ML IV SCH (01:47)
[2021-02-12] MEDS: BISACODYL 10 MG SUPP PR PRN ×2 (04:07→21:17)
[2021-02-12] MEDS: oxyCODONE 5MG TAB PO SCH ×4 (05:23→23:22)
[2021-02-12 06:09] LABS: BASO % 0.3 % (0.0-1.0); EOS # 0.1 10^3/uL (0.0-0.5); EOS % 1.3 % (0.0-3.0); HEMATOCRIT 32.4 % (42.0-52.0); HEMOGLOBIN 10.4 g/dl (13.5-17.5); LYMPH # 1.9 10^3/uL (1.5-5.0); LYMPH % 21.6 % (24.0-44.0); MEAN CORPUSCULAR HEMOGLOBIN 29.3 pg (27.0-33.0); MEAN CORPUSCULAR HGB CONC 32.1 g/dl (32.0-36.5); MEAN CORPUSCULAR VOLUME 91.3 fl (80.0-96.0); MONO # 0.9 10^3/uL (0.0-0.8); MONO % 10.4 % (2.0-8.0); NEUTROPHILS # 5.6 10^3/uL (1.5-8.5); PLATELET COUNT, AUTOMATED 448 10^3/uL (150-450); RED BLOOD COUNT 3.55 10^6/uL (4.30-6.10); WHITE BLOOD COUNT 8.8 10^3/uL (4.0-10.0)
[2021-02-12 06:19] VITALS: BP 122/76
[2021-02-12 06:20] LABS: INR 1.93; PROTHROMBIN TIME 22.5 SECONDS (12.5-14.3)
[2021-02-12 06:34] LABS: BLOOD UREA NITROGEN 19 MG/DL (7-18); C REACTIVE PROTEIN QUANTITATIV 4.53 MG/DL (0.00-0.30); CALCIUM LEVEL 9.9 MG/DL (8.8-10.2); CARBON DIOXIDE LEVEL 23 MEQ/L (21-32); CHLORIDE LEVEL 103 MEQ/L (98-107); CREATININE FOR GFR 0.67 MG/DL (0.70-1.30); GLOMERULAR FILTRATION RATE > 60.0 (>42); GLUCOSE, FASTING 130 MG/DL (70-100); POTASSIUM SERUM 4.1 MEQ/L (3.5-5.1); SODIUM LEVEL 133 MEQ/L (136-145)
[2021-02-12] MEDS: MIRALAX *UNIT DOSE* 17GM PACKET PO SCH ×2 (08:51→21:02)
[2021-02-12] MEDS: SIROLIMUS 1 MG TAB (RAPAMUNE) PO SCH (08:53)
[2021-02-12] MEDS: LACTOBACILLUS ACIDOPHILUS CAP (BACID) PO SCH ×4 (08:54→21:04)
[2021-02-12] MEDS: MAGNESIUM GLUCONATE 500 MG TAB PO SCH ×2 (08:54→21:04)
[2021-02-12] MEDS: DOCUSATE SODIUM 100MG CAPSULE PO SCH ×2 (08:54→21:04)
[2021-02-12] MEDS: VITAMIN B COMPLEX/VIT C CAP PO SCH (08:55)
[2021-02-12] MEDS: DIGOXIN 0.125 MG TAB PO SCH (08:55)
[2021-02-12] MEDS: POTASSIUM CHLORIDE 10 MEQ SR TABLET PO SCH ×2 (08:55→21:05)
[2021-02-12] MEDS: CINACALCET 30 MG TAB (SENSIPAR) PO SCH (08:55)
[2021-02-12] MEDS: TORSEMIDE 20 MG TAB PO SCH ×2 (08:56→17:40)
[2021-02-12] MEDS: PANTOPRAZOLE 40MG TAB (PROTONIX) PO SCH (08:56)
[2021-02-12] MEDS: ASPIRIN 81MG ENTERIC TABLET PO SCH (08:56)
[2021-02-12] MEDS: K-PHOS ORIGINAL (POT.ACID PHOSPHATE) 500MG TAB PO SCH ×2 (08:56→21:05)
[2021-02-12] MEDS: CYCLOBENZAPRINE 10MG TABLET PO SCH (08:56)
[2021-02-12] MEDS: ACETAMINOPHEN 500 MG TAB PO SCH ×3 (08:56→21:03)
[2021-02-12] MEDS: predniSONE 5 MG TAB PO SCH (08:57)
[2021-02-12] MEDS: GABAPENTIN 300 MG CAP PO SCH ×3 (08:57→21:05)
[2021-02-12] MEDS: aMILoride 5 MG TAB PO SCH (08:57)
[2021-02-12] MEDS: REMEDY PHYTOPLEX Z-GUARD PASTE 113GM TUBE (FROM STOREROOM PRODUCT) TOP SCH ×3 (08:59→21:06)
[2021-02-12] MEDS: **NOTE PATIENT COMMENT** MISC XX SCH (09:00)
[2021-02-12] MEDS ORDERED: oxyCODONE 5MG TAB PO ONE (10:35)
--- NOTE | 2021-02-12 12:06 | IPNPDOC ---
Text Note Date of Service The patient was seen on 02/12/21. NOTE Patient seen and examined. No new overnight events except for an access issue where he lost IV access yesterday. PHYSICAL EXAMINATION: General: Patient is awake, alert, oriented times three. Head and neck exam: Pupils are equally round and reactive to light. Neck is supple. He has old surgical scars on the back of the neck. Cardiovascular: S1, S2, regular rate. No edema of the right lower extremity. Respiratory: Chest is clear to auscultation bilaterally. Bilateral equal air entry. Abdomen: Soft, old surgical scars are noted. Musculoskeletal: Left above-knee amputation with dressing with very minimal soakage/drainage. Decreased range of motion of bilateral shoulders because of rotator cuff surgery. 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 He is able to follow commands and able to communicate well. Assessment and Plan This is a very pleasant 76-year-old gentleman with multiple medical problems and a long-standing history of atherosclerosis of the [place] arteries who over the past 2 months has had progressively worse to rest pain in the left foot, and developed ulcerations between the fourth and fifth toe and at the base of the fourth and fifth toes on the plantar surface. He saw Dr. Monique who ordered an arterial study and the patient was appropriately referred to Vascular for revascularization. Angiography of the left leg by Dr Alex showed blockages in the SFA and Popliteal artery. Had successful Angioplasty left superficial femoral artery and proximal popliteal artery. He also had chronic total occlusions left anterior tibial artery, left posterior tibial artery, left peroneal artery. Tried Multiple repeat angioplasties of left anterior tibial artery, left posterior tibial artery, left peroneal artery which were unfortunately successful. So the patient was admitted for above knee amputation for acute left leg ischemia. He is s/p AKA on 01/28/21 nor in ARU getting acute rehab. 1. Acute on Chronic left leg ischemia unsuccessful angioplasties and had emergent left AKA on 01/28/21. Pt/OT as per ARU 2. Chronic Afib cont Digoxin and coumadin, continue Coumadin to maintain INR between 2-3 3. H/o Nephrolithiasis in transplanted kidney and ureteric stone and ureteric stricture s/p perc nephrostomy tube in the transplanted kidney removed in march 2020 Now no issues. Consult nephrology prn. 4. CAD: s/p stent 03/19/20. Cont ASA and coumadin 5. Chronic anemia iron deficiency. 6. IgA Nephropathy/ ESRD since 1999 s/p R renal transplant 2006 C/w azathioprine, sirolimus, prednisone calcitriol, consult nephrology prn 7. Secondary hyperparathyroidism: Calcitriol 8. Chronic Hypophosphatemia continue nutraphos. 9. HTN amlodipine, amiloride, torsemide 10.Aortic Stenosis Was planned for a TAVR in January 2021 11. Neuropathy: Gabapentin , cymbalta, percocet 12. Chronic back pain and neck pain with significant degenerative spine changes, status post reconstructive surgery. Gabapentin , cymbalta, percocet Disposition as per primary. VS,Fishbone, I+O VS, Fishbone, I+O Laboratory Tests 02/12/21 05:57 Vital Signs Date Time Temp Pulse Resp B/P (MAP) Pulse Ox O2 Delivery O2 Flow Rate FiO2 02/12/21 11:25 18 Room Air 02/12/21 08:57 80 130/76 02/12/21 06:19 98.1 98 I&O- Last 24 Hours up to 6 AM 02/12/21 06:00 Intake Total 1210 ml Output Total 800 ml Balance 410 ml HERMILA LIANG MD February 12, 2021 12:06
--- NOTE | 2021-02-12 12:38 | IPNPDOC ---
PM&R Progress Note DATE OF SERVICE: February 11, 2021 Curtain Cutter Progress Note Subjective: Patient seen in his room for dressing change, stating he feels it is too much for him to put weight through his shoulders to do transfers. He states his pain is no worse today and appeared calm. He remarked his left limb was less painful with dressing change. REVIEW OF SYSTEMS: The following is a completed review of systems and has been reviewed. Review of systems otherwise unremarkable. PAIN: Patient self reports left AKA pain and chronic neck pain EYES: No recent vision changes EARS, NOSE, & THROAT: No throat pain, or dysphagia, or rhinorrhea CARDIOVASCULAR: Denies chest pain or palpitations PULMONARY: Denies shortness of breath GASTROINTESTINAL: Denies constipation/diarrhea GENITOURINARY: denies dysuria MUSCULOSKELETAL: s/p left AKA NEUROLOGICAL: denies tremor HEMATOLOGICAL: +anemia SKIN: left aka PSYCHIATRIC: Unremarkable All other review of systems found to be negative. PHYSICAL EXAMINATION: VITAL SIGNS: Please see below. GENERAL: Pleasant and cooperative. No acute distress. HEENT: PERRL. Extraocular movements intact. Clear conjunctiva CARDIOVASCULAR: irregular rate and rhythm. +systolic murmurs, rubs, or gallops LUNGS: Clear to auscultation bilaterally. No wheezes. No rhonchi ABDOMEN: Soft, nontender, nondistended. Positive bowel sounds. Normal active bowel sounds NEUROLOGICAL: Alert and oriented times three. Cranial nerves II through XII grossly intact. Sensation grossly intact EXTREMITIES: 5-\\5 strength bilateral upper extremities. 5-\\5 strength right lower extremity. left hip flexor 4/5 RUE edema>LUE (improving) RLE edema (with mild erythema improving) +TTP at lower thoracic spine with an area of bony protuberance, no warmth/erythema Left shoulder, minimal pain with PROM, no swelling or bruising SKIN: left AKA with ecchymosis, lawrence-incision with scant serous drainage and dry necrotic tissue, + ecchymotic induration on posterior thigh just below incision (improving) ASSESSMENT:76-year-old M with past medical history of IgA nephropathy s/p bilat nephrectomy with transplant, Afib, Aortic stenosis who presents status post left BKA PLAN: 1. Rehab- PT/OT advance mobility and ADLs, strengthen/stretch/maintain ROM all 4limbs, teach limb care 2. Ortho hx of chronic neck pain with multiple surgeries- soft cervical collar, gabapentin, flexeril, and oxycodone 3. Vasc- sp left AKA on 01-28-21, dressing changes adjusted to protect incision and lawrence-incision from maceration, c/u clindamycin for concern for cellulitis, CRP is trending down, consulted ID for further advice given portion of residual limb now appears necrotic despite BID wound care- IV vanco initiated, US ordered- recs appreciated -Dr. Ortez aware and recommends high protein diet, BID dressing changes, and try to avoid local trauma 4. CArdiac- hx of Afib on coumadin (on hold bc supra-therapeutic) c/u digoxin and monitor daily INRs -Aortic stenosis will need to reschedule TAVR- c/u amiloride and torsemide - CAD- on ASA -HTN c/u amlodipine 5. Resp- monitor for infection 6. Renal- IgA nephropathy s/p renal transplant- c/u imuran, sirolimus, and prednisone-renal consulted, recs appreciated -c/u magnesium and phosphate supplement for hypomagnesemia and hypophosphatemia -calcitriol and Sensipar 7. DVT ppx- on coumadin 8. GI ppx- protonix 9. Pain- patient with hx of chronic pain on chronic opioids, c/u tylenol, flexeril, oxycodone changed to 7.5mg q6h standing, c/u gabapentin -low back pain- patient with hx of lumbar surgery, recent lumbar CTs showing no fracture, pain is non-radiating, c/u lidoderm patch to low back -ordered left shoulder xray to r/o dislocation/fracture given recent strain in therapy while putting new weight through his arms with AKA, clinical suspicion low -left shoulder Xray "There is evidence of glenohumeral joint space narrowing. There is no acute fracture, dislocation, or subluxation." - per family request ordered Cervical spine X-ray as family concerned he may have new fracture in his neck where he has had prior surgery- Xray negative for new fracture, CT neck ordered as well showing, "No acute fracture or subluxation. There is a chronic anterior craniocervical subluxation with degenerative pannus and calcification posterior to the dens producing central canal stenosis in the upper cervical canal at C1-C2. This is unchanged from 2019 prior MRI study. Extensive ventral and dorsal fusion hardware throughout the cervical spine C2 through T1. Status post vertebroplasty C7, T1, and T2. 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 Psych- insomnia- atarax 11. DIspo- 02-13-21 to home Allergies Coded Allergies: Quinolones (Verified Allergy, Unknown, 01/07/21) oxybutynin (Verified Allergy, Unknown, 01/07/21) tamsulosin (Verified Allergy, Unknown, 01/07/21) ciprofloxacin (Verified Adverse Reaction, Intermediate, HEART RACES, 01/07/21) levofloxacin (Verified Adverse Reaction, Intermediate, HEART RACES, 01/07/21) amoxicillin (Verified Adverse Reaction, Mild, can take few prior to dentist but can not take for 10 days, 01/07/21) cefuroxime (Verified Adverse Reaction, Mild, ANXIETY, 01/07/21) codeine (Verified Adverse Reaction, Mild, AGITATION, 01/07/21) doxycycline (Verified Adverse Reaction, Mild, UPSET STOMACH, 01/07/21) lorazepam (Verified Adverse Reaction, Mild, AGITATION, 01/07/21) pregabalin (Verified Adverse Reaction, Mild, ANXIETY, DROWSINESS, 01/07/21) tizanidine (Verified Adverse Reaction, Unknown, 01/07/21) Vital Signs Vital Signs Date Time Temp Pulse Resp B/P (MAP) Pulse Ox O2 Delivery O2 Flow Rate FiO2 02/12/21 12:16 98.1 80 18 130/76 98 Room Air Laboratory Data CBC/BMP Laboratory Tests 02/12/21 05:57 Labs 24H Laboratory Tests 2 02/11/21 12:54: Vancomycin Level Trough 9.4L 02/12/21 05:57: Immature Granulocyte % (Auto) 2.4, Neutrophils (%) (Auto) 64.0, Lymphocytes (%) (Auto) 21.6L, Monocytes (%) (Auto) 10.4H, Eosinophils (%) (Auto) 1.3, Basophils (%) (Auto) 0.3, Neutrophils # (Auto) 5.6, Lymphocytes # (Auto) 1.9, Monocytes # (Auto) 0.9H, Eosinophils # (Auto) 0.1, Basophils # (Auto) 0.0, Nucleated Red Blood Cells % (auto) 0.0, Prothrombin Time 22.5H, Prothromb Time International Ratio 1.93, Anion Gap 7L, Glomerular Filtration Rate > 60.0, Calcium Level 9.9, C-Reactive Protein, Quantitative 4.53H Microbiology Microbiology 02/10/21 Gram Stain - Final, Resulted 02/10/21 Wound Culture, Resulted Pending Current Medications Current Medications Current Medications Medications (Trade) Dose Ordered Sig/Dionte Route PRN Reason Start Time Stop Time Status Last Admin Dose Admin Acetaminophen (Tylenol Tab) 1,000 mg TID PO 01/30/21 16:00 02/12/21 08:56 Amiloride HCl (Midamor) 5 mg DAILY PO 01/31/21 09:00 02/12/21 08:57 Amlodipine Besylate (Norvasc) 5 mg DAILY PO 01/31/21 09:00 01/31/21 16:23 DC 01/31/21 09:53 Amlodipine Besylate (Norvasc) 10 mg DAILY PO 02/01/21 09:00 02/12/21 08:57 Aspirin (Ecotrin) 81 mg DAILY PO 01/31/21 09:00 02/12/21 08:56 Azathioprine (Imuran) 100 mg DAILY PO 01/31/21 09:00 02/12/21 08:54 Bisacodyl (Dulcolax Suppository) 10 mg DAILYPRN PRN MD CONSTIPATION 01/30/21 12:45 02/12/21 04:07 Calcitriol (Rocaltrol) 0.25 mcg MoWeFr@0900 PO 02/02/21 09:00 02/10/21 08:05 DC 02/09/21 09:50 Cinacalcet (Sensipar) 30 mg TuThSa@0900 PO 01/31/21 09:00 02/12/21 08:55 Clindamycin HCl (Cleocin) 300 mg QID PO 02/02/21 17:00 02/10/21 11:02 DC 02/10/21 09:26 Cyclobenzaprine HCl (Flexeril) 10 mg Q8H PO 02/09/21 00:00 02/12/21 08:56 Cyclobenzaprine HCl (Flexeril) 10 mg Q8HP PRN PO SPASMS 01/30/21 12:55 02/08/21 16:12 DC 02/08/21 09:20 Digoxin (Lanoxin) 0.125 mg DAILY PO 01/31/21 09:00 02/12/21 08:55 Docusate Sodium (Colace) 100 mg BID PO 01/30/21 21:00 02/12/21 08:54 Gabapentin (Neurontin) 600 mg TID PO 01/30/21 16:00 02/12/21 08:57 Home Med (Med Rec Complete!) ASDIRECTED XX 01/30/21 17:00 01/30/21 17:09 DC Hydroxyzine HCl (Atarax) 50 mg QHS PRN PO insomnia 01/30/21 12:55 02/09/21 21:40 Lactobacillus Acidophilus (Bacid) 1 ea WMHS PO 02/02/21 18:00 02/12/21 12:16 Lidocaine (Lidoderm Patch) 1 patch QHS TD 02/09/21 21:00 02/11/21 22:02 Magnesium Gluconate (Magnesium Gluconate) 1,500 mg BID PO 01/30/21 21:00 02/12/21 08:54 Naloxone HCl (Narcan) 0.1 mg Q5MP PRN IV RESP. RATE < 10 02/08/21 16:15 Non-Formulary Medication ( See Comment Field Below ) REMOVE LIDODERM PATCH DAILY XX 02/10/21 09:00 02/12/21 09:00 Ondansetron HCl (Zofran Odt) 4 mg Q6HP PRN SL NAUSEA OR VOMITING 01/31/21 13:55 01/31/21 14:02 Oxycodone HCl (Roxicodone, Oxyir) 5 mg Q4HP PRN PO PAIN LEVEL 4-7 01/30/21 12:55 02/08/21 16:12 DC 01/31/21 21:12 Oxycodone HCl (Roxicodone, Oxyir) 5 mg Q6H PO 02/08/21 22:00 02/09/21 12:26 DC 02/09/21 09:51 Oxycodone HCl (Roxicodone, Oxyir) 7.5 mg Q6H PO 02/09/21 18:00 02/12/21 12:16 Oxycodone HCl (Roxicodone, Oxyir) 10 mg Q6HP PRN PO SEVERE PAIN (PS 8-10) 02/09/21 17:15 02/09/21 17:17 DC Oxycodone HCl (Roxicodone, Oxyir) 10 mg Q6HP PRN PO SEVERE PAIN (PS 8-10) 01/31/21 14:40 02/09/21 16:59 DC 02/09/21 11:03 Pantoprazole Sodium (Protonix) 40 mg DAILY PO 01/31/21 09:00 02/12/21 08:56 Polyethylene Glycol (Miralax) 1 pkt BID PO 02/12/21 09:00 02/12/21 08:51 Potassium Phosphate (K-Phos Original) 500 mg BID PO 01/30/21 21:00 02/12/21 08:56 Potassium Chloride (Micro-K Extencaps) 10 meq BID PO 01/30/21 21:00 02/04/21 21:10 DC 02/04/21 20:16 Potassium Chloride (Micro-K Extencaps) 20 meq BID PO 02/05/21 09:00 02/12/21 08:55 Prednisone (Deltasone) 5 mg DAILY PO 01/31/21 09:00 02/12/21 08:57 Senna (Senokot) 1 tab QHS PO 01/30/21 21:00 02/11/21 22:00 Sirolimus (Rapamune) 2 mg DAILY PO 01/31/21 09:00 02/12/21 08:53 Tacrolimus (Prograf) 2 mg QAM PO 01/31/21 09:00 01/30/21 18:39 DC Torsemide (Demadex) 20 mg BID@ PO 01/31/21 17:00 02/12/21 08:56 Torsemide (Demadex) 40 mg BID@,17 PO 01/30/21 17:00 01/31/21 12:54 DC 01/31/21 09:48 Vancomycin HCl 1000 mg/IV Miscellaneous Supplies 1 each/ Sodium Chloride 270 ml @ 270 mls/hr Q12H IV 02/10/21 02:00 02/10/21 16:36 DC Vancomycin HCl 1000 mg/IV Miscellaneous Supplies 1 each/ Sodium Chloride 270 ml @ 270 mls/hr Q12H IV 02/11/21 02:00 02/11/21 13:59 Vitamin B Complex/ Vitamin C (Therapeutic B Complex w/C) 1 cap DAILY PO 01/31/21 09:00 02/12/21 08:55 Warfarin Sodium (Coumadin) 2 mg DAILY@17 PO 02/12/21 17:00 Warfarin Sodium (Coumadin) 2 mg DAILY@17 PO 01/31/21 17:00 02/12/21 10:51 DC 02/09/21 17:28 Warfarin Sodium (Coumadin) 3 mg DAILY@17 PO 01/30/21 17:00 01/31/21 11:31 DC 01/30/21 18:19 FARHAN LAMAR MD February 12, 2021 12:38
--- NOTE | 2021-02-12 12:43 | IPNPDOC ---
PM&R Progress Note DATE OF SERVICE: February 12, 2021 [employer] Progress Note Subjective: Patient seen in his room getting ready for therapy stating he is eager to go home tomorrow and is wondering if he will need a PICC. He denies fevers, chills, or any worsening pain in his limb. REVIEW OF SYSTEMS: The following is a completed review of systems and has been reviewed. Review of systems otherwise unremarkable. PAIN: Patient self reports left AKA pain and chronic neck pain EYES: No recent vision changes EARS, NOSE, & THROAT: No throat pain, or dysphagia, or rhinorrhea CARDIOVASCULAR: Denies chest pain or palpitations PULMONARY: Denies shortness of breath GASTROINTESTINAL: Denies constipation/diarrhea GENITOURINARY: denies dysuria MUSCULOSKELETAL: s/p left AKA NEUROLOGICAL: denies tremor HEMATOLOGICAL: +anemia SKIN: left aka PSYCHIATRIC: Unremarkable All other review of systems found to be negative. PHYSICAL EXAMINATION: VITAL SIGNS: Please see below. GENERAL: Pleasant and cooperative. No acute distress. HEENT: PERRL. Extraocular movements intact. Clear conjunctiva CARDIOVASCULAR: irregular rate and rhythm. +systolic murmurs, rubs, or gallops LUNGS: Clear to auscultation bilaterally. No wheezes. No rhonchi ABDOMEN: Soft, nontender, nondistended. Positive bowel sounds. Normal active bowel sounds NEUROLOGICAL: Alert and oriented times three. Cranial nerves II through XII grossly intact. Sensation grossly intact EXTREMITIES: 5-\\5 strength bilateral upper extremities. 5-\\5 strength right lower extremity. left hip flexor 4/5 RUE edema>LUE (improving) RLE edema (with mild erythema improving) +TTP at lower thoracic spine with an area of bony protuberance, no warmth/erythema Left shoulder, minimal pain with PROM, no swelling or bruising SKIN: left AKA with ecchymosis, lawrence-incision with scant serous drainage and dry necrotic tissue, + ecchymotic induration on posterior thigh just below incision (improving) ASSESSMENT:76-year-old M with past medical history of IgA nephropathy s/p bilat nephrectomy with transplant, Afib, Aortic stenosis who presents status post left BKA PLAN: 1. Rehab- PT/OT advance mobility and ADLs, strengthen/stretch/maintain ROM all 4limbs, teach limb care 2. Ortho hx of chronic neck pain with multiple surgeries- soft cervical collar, gabapentin, flexeril, and oxycodone 3. Vasc- sp left AKA on 01-28-21, dressing changes adjusted to protect incision and lawrence-incision from maceration, c/u clindamycin for concern for cellulitis, CRP is trending down, consulted ID for further advice given portion of residual limb now appears necrotic despite BID wound care- IV vanco initiated, wound cx per micro growing coag negative staph, discussed with Dr. Johns, ok to go home on Linezolid 600mg BID x 10 days -US ordered showing collection seroma/hematoma vs abscess, ID recs appreciated -Dr. Ortez aware and recommends high protein diet, BID dressing changes, and try to avoid local trauma 4. CArdiac- hx of Afib on coumadin (on hold bc supra-therapeutic) c/u digoxin and monitor daily INRs -Aortic stenosis will need to reschedule TAVR- c/u amiloride and torsemide - CAD- on ASA -HTN c/u amlodipine 5. Resp- monitor for infection 6. Renal- IgA nephropathy s/p renal transplant- c/u imuran, sirolimus, and prednisone-renal consulted, recs appreciated -c/u magnesium and phosphate supplement for hypomagnesemia and hypophosphatemia -calcitriol and Sensipar 7. DVT ppx- on coumadin 8. GI ppx- protonix 9. Pain- patient with hx of chronic pain on chronic opioids, c/u tylenol, flexer il, oxycodone changed to 7.5mg q6h standing, c/u gabapentin -low back pain- patient with hx of lumbar surgery, recent lumbar CTs showing no fracture, pain is non-radiating, c/u lidoderm patch to low back -ordered left shoulder xray to r/o dislocation/fracture given recent strain in therapy while putting new weight through his arms with AKA, clinical suspicion low -left shoulder Xray "There is evidence of glenohumeral joint space narrowing. There is no acute fracture, dislocation, or subluxation." - per family request ordered Cervical spine X-ray as family concerned he may have new fracture in his neck where he has had prior surgery- Xray negative for new fracture, CT neck ordered as well showing, "No acute fracture or subluxation. There is a chronic anterior craniocervical subluxation with degenerative pannus and calcification posterior to the dens producing central canal stenosis in the upper cervical canal at C1-C2. This is unchanged from 2019 prior MRI study. Extensive ventral and dorsal fusion hardware throughout the cervical spine C2 through T1. Status post vertebroplasty C7, T1, and T2. 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 Psych- insomnia- atarax 11. DIspo- 02-13-21 to home Allergies Coded Allergies: Quinolones (Verified Allergy, Unknown, 01/07/21) oxybutynin (Verified Allergy, Unknown, 01/07/21) tamsulosin (Verified Allergy, Unknown, 01/07/21) ciprofloxacin (Verified Adverse Reaction, Intermediate, HEART RACES, 01/07/21) levofloxacin (Verified Adverse Reaction, Intermediate, HEART RACES, 01/07/21) amoxicillin (Verified Adverse Reaction, Mild, can take few prior to dentist but can not take for 10 days, 01/07/21) cefuroxime (Verified Adverse Reaction, Mild, ANXIETY, 01/07/21) codeine (Verified Adverse Reaction, Mild, AGITATION, 01/07/21) doxycycline (Verified Adverse Reaction, Mild, UPSET STOMACH, 01/07/21) lorazepam (Verified Adverse Reaction, Mild, AGITATION, 01/07/21) pregabalin (Verified Adverse Reaction, Mild, ANXIETY, DROWSINESS, 01/07/21) tizanidine (Verified Adverse Reaction, Unknown, 01/07/21) Vital Signs Vital Signs Date Time Temp Pulse Resp B/P (MAP) Pulse Ox O2 Delivery O2 Flow Rate FiO2 02/12/21 12:16 98.1 80 18 130/76 98 Room Air Laboratory Data CBC/BMP Laboratory Tests 02/12/21 05:57 Labs 24H Laboratory Tests 2 02/11/21 12:54: Vancomycin Level Trough 9.4L 02/12/21 05:57: Immature Granulocyte % (Auto) 2.4, Neutrophils (%) (Auto) 64.0, Lymphocytes (%) (Auto) 21.6L, Monocytes (%) (Auto) 10.4H, Eosinophils (%) (Auto) 1.3, Basophils (%) (Auto) 0.3, Neutrophils # (Auto) 5.6, Lymphocytes # (Auto) 1.9, Monocytes # (Auto) 0.9H, Eosinophils # (Auto) 0.1, Basophils # (Auto) 0.0, Nucleated Red Blood Cells % (auto) 0.0, Prothrombin Time 22.5H, Prothromb Time International Ratio 1.93, Anion Gap 7L, Glomerular Filtration Rate > 60.0, Calcium Level 9.9, C-Reactive Protein, Quantitative 4.53H Microbiology Microbiology 02/10/21 Gram Stain - Final, Resulted 02/10/21 Wound Culture, Resulted Pending Current Medications Current Medications Current Medications Medications (Trade) Dose Ordered Sig/Dionte Route PRN Reason Start Time Stop Time Status Last Admin Dose Admin Acetaminophen (Tylenol Tab) 1,000 mg TID PO 01/30/21 16:00 02/12/21 08:56 Amiloride HCl (Midamor) 5 mg DAILY PO 01/31/21 09:00 02/12/21 08:57 Amlodipine Besylate (Norvasc) 5 mg DAILY PO 01/31/21 09:00 01/31/21 16:23 DC 01/31/21 09:53 Amlodipine Besylate (Norvasc) 10 mg DAILY PO 02/01/21 09:00 02/12/21 08:57 Aspirin (Ecotrin) 81 mg DAILY PO 01/31/21 09:00 02/12/21 08:56 Azathioprine (Imuran) 100 mg DAILY PO 01/31/21 09:00 02/12/21 08:54 Bisacodyl (Dulcolax Suppository) 10 mg DAILYPRN PRN NC CONSTIPATION 01/30/21 12:45 02/12/21 04:07 Calcitriol (Rocaltrol) 0.25 mcg MoWeFr@0900 PO 02/02/21 09:00 02/10/21 08:05 DC 02/09/21 09:50 Cinacalcet (Sensipar) 30 mg TuThSa@0900 PO 01/31/21 09:00 02/12/21 08:55 Clindamycin HCl (Cleocin) 300 mg QID PO 02/02/21 17:00 02/10/21 11:02 DC 02/10/21 09:26 Cyclobenzaprine HCl (Flexeril) 10 mg Q8H PO 02/09/21 00:00 02/12/21 08:56 Cyclobenzaprine HCl (Flexeril) 10 mg Q8HP PRN PO SPASMS 01/30/21 12:55 02/08/21 16:12 DC 02/08/21 09:20 Digoxin (Lanoxin) 0.125 mg DAILY PO 01/31/21 09:00 02/12/21 08:55 Docusate Sodium (Colace) 100 mg BID PO 01/30/21 21:00 02/12/21 08:54 Gabapentin (Neurontin) 600 mg TID PO 01/30/21 16:00 02/12/21 08:57 Home Med (Med Rec Complete!) ASDIRECTED XX 01/30/21 17:00 01/30/21 17:09 DC Hydroxyzine HCl (Atarax) 50 mg QHS PRN PO insomnia 01/30/21 12:55 02/09/21 21:40 Lactobacillus Acidophilus (Bacid) 1 ea WMHS PO 02/02/21 18:00 02/12/21 12:16 Lidocaine (Lidoderm Patch) 1 patch QHS TD 02/09/21 21:00 02/11/21 22:02 Magnesium Gluconate (Magnesium Gluconate) 1,500 mg BID PO 01/30/21 21:00 02/12/21 08:54 Naloxone HCl (Narcan) 0.1 mg Q5MP PRN IV RESP. RATE < 10 02/08/21 16:15 Non-Formulary Medication ( See Comment Field Below ) REMOVE LIDODERM PATCH DAILY XX 02/10/21 09:00 02/12/21 09:00 Ondansetron HCl (Zofran Odt) 4 mg Q6HP PRN SL NAUSEA OR VOMITING 01/31/21 13:55 01/31/21 14:02 Oxycodone HCl (Roxicodone, Oxyir) 5 mg Q4HP PRN PO PAIN LEVEL 4-7 01/30/21 12:55 02/08/21 16:12 DC 01/31/21 21:12 Oxycodone HCl (Roxicodone, Oxyir) 5 mg Q6H PO 02/08/21 22:00 02/09/21 12:26 DC 02/09/21 09:51 Oxycodone HCl (Roxicodone, Oxyir) 7.5 mg Q6H PO 02/09/21 18:00 02/12/21 12:16 Oxycodone HCl (Roxicodone, Oxyir) 10 mg Q6HP PRN PO SEVERE PAIN (PS 8-10) 02/09/21 17:15 02/09/21 17:17 DC Oxycodone HCl (Roxicodone, Oxyir) 10 mg Q6HP PRN PO SEVERE PAIN (PS 8-10) 01/31/21 14:40 02/09/21 16:59 DC 02/09/21 11:03 Pantoprazole Sodium (Protonix) 40 mg DAILY PO 01/31/21 09:00 02/12/21 08:56 Polyethylene Glycol (Miralax) 1 pkt BID PO 02/12/21 09:00 02/12/21 08:51 Potassium Phosphate (K-Phos Original) 500 mg BID PO 01/30/21 21:00 02/12/21 08:56 Potassium Chloride (Micro-K Extencaps) 10 meq BID PO 01/30/21 21:00 02/04/21 21:10 DC 02/04/21 20:16 Potassium Chloride (Micro-K Extencaps) 20 meq BID PO 02/05/21 09:00 02/12/21 08:55 Prednisone (Deltasone) 5 mg DAILY PO 01/31/21 09:00 02/12/21 08:57 Senna (Senokot) 1 tab QHS PO 01/30/21 21:00 02/11/21 22:00 Sirolimus (Rapamune) 2 mg DAILY PO 01/31/21 09:00 02/12/21 08:53 Tacrolimus (Prograf) 2 mg QAM PO 01/31/21 09:00 01/30/21 18:39 DC Torsemide (Demadex) 20 mg BID@, PO 01/31/21 17:00 02/12/21 08:56 Torsemide (Demadex) 40 mg BID@,17 PO 01/30/21 17:00 01/31/21 12:54 DC 01/31/21 09:48 Vancomycin HCl 1000 mg/IV Miscellaneous Supplies 1 each/ Sodium Chloride 270 ml @ 270 mls/hr Q12H IV 02/10/21 02:00 02/10/21 16:36 DC Vancomycin HCl 1000 mg/IV Miscellaneous Supplies 1 each/ Sodium Chloride 270 ml @ 270 mls/hr Q12H IV 02/11/21 02:00 02/11/21 13:59 Vitamin B Complex/ Vitamin C (Therapeutic B Complex w/C) 1 cap DAILY PO 01/31/21 09:00 02/12/21 08:55 Warfarin Sodium (Coumadin) 2 mg DAILY@17 PO 02/12/21 17:00 Warfarin Sodium (Coumadin) 2 mg DAILY@17 PO 01/31/21 17:00 02/12/21 10:51 DC 02/09/21 17:28 Warfarin Sodium (Coumadin) 3 mg DAILY@17 PO 01/30/21 17:00 01/31/21 11:31 DC 01/30/21 18:19 FARHAN LAMAR MD February 12, 2021 12:43
[2021-02-12 14:00] VITALS: BP 131/91
[2021-02-12] MEDS ORDERED: BACLOFEN 5MG PER 1/2 TABLET PO PRN (14:10)
[2021-02-12] MEDS: LINEZOLID 600MG TABLET (ZYVOX) PO SCH ×2 (14:38→21:17)
[2021-02-12] MEDS: WARFARIN SOD 2MG TAB PO SCH (17:40)
[2021-02-12] MEDS ORDERED: hydrOXYzine 25 MG TAB PO STA (18:24)
[2021-02-12 21:00] VITALS: BP 137/78
[2021-02-12] MEDS: LIDOCAINE 5% (LIDODERM) PATCH TD SCH (21:03)
[2021-02-12] MEDS: SENNA 8.6 MG TAB (SENOKOT) PO SCH (21:04)
--- NOTE | 2021-02-13 00:34 | IPN ---
NEPHROLOGY PROGRESS NOTE DATE: 02/12/2021 SUBJECTIVE: Patient was seen and examined at the bedside today morning. He is afebrile, hemodynamically stable. He was in the rehab unit trying to get some physical therapy. OBJECTIVE: VITAL SIGNS: Temperature 98.6 degrees Fahrenheit, blood pressure 137/78, pulse 80, respiratory rate 20, saturating 97% on room air. INTAKE/OUTPUT: Urine output recorded as 1.1 liter yesterday and 550 mL so far today since overnight. Weight in the bed scale is not available. PHYSICAL EXAMINATION: GENERAL: Patient is awake, alert, oriented x3, sitting up in the wheelchair. HEAD/NECK: Extraocular muscles intact. Pupils equally round and reactive to light. Mucous membranes are moist. Neck is supple. CVS: S1, S2, regular rate. Trace edema of right lower extremity. RESPIRATORY: Chest is clear to auscultation bilaterally. Bilateral equal air entry. No rales or rhonchi. ABDOMEN: Soft, positive bowel sounds. Old surgical scar and renal allograft are noted. MUSCULOSKELETAL: Left above knee amputation site has dressing. BRICK OR BLOCK MAKER: No focal deficit apart from decreased range of movement of bilateral shoulders because of rotator cuff injuries. LAB REVIEW: CBC showed WBC 8.8, hemoglobin 10.4, platelets 448,000. BMP showed sodium 133, potassium 4.1, chloride 103, bicarb 23, BUN 19, creatinine 0.67. Calcium 9.9. C-reactive protein is 4.5 today. MICROBIOLOGY: Wound culture is pending. CURRENT INPATIENT MEDICATIONS: Patient's medications were all reviewed by myself. I.V. Vancomycin has been stopped now. He has been started on Zyvox 600 mg p.o. twice a day. No other significant change in the medications today as compared with yesterday. ASSESSMENT AND PLAN: 1. Renal allograft status: Continue immunosuppression with Sirolimus, prednisone and Azathioprine. 2. Hypertension: Continue Amlodipine and Amiloride. 3. Lower extremity edema: It is controlled with daily Amiloride and Torsemide. 4. Chronic hypermagnesemia: Continue magnesium and Amiloride. 5. Secondary hyperparathyroidism: Continue Sensipar at this time. Calcitriol is on hold because of hypercalcemia, which has improved now. 6. Status post left above knee amputation and possible wound infection: Cultures are pending. Patient is currently on Zyvox. C-reactive protein is improving.
[2021-02-13] MEDS: hydrOXYzine 50 MG TAB PO PRN (01:04)
[2021-02-13] MEDS: oxyCODONE 5MG TAB PO SCH ×2 (05:14→12:03)
[2021-02-13 06:00] VITALS: BP 126/66
[2021-02-13] MEDS: aMILoride 5 MG TAB PO SCH (08:20)
[2021-02-13] MEDS: DIGOXIN 0.125 MG TAB PO SCH (08:21)
[2021-02-13] MEDS: MAGNESIUM GLUCONATE 500 MG TAB PO SCH (08:21)
[2021-02-13] MEDS: LACTOBACILLUS ACIDOPHILUS CAP (BACID) PO SCH ×2 (08:21→12:03)
[2021-02-13] MEDS: ACETAMINOPHEN 500 MG TAB PO SCH ×2 (08:24→16:06)
[2021-02-13] MEDS: POTASSIUM CHLORIDE 10 MEQ SR TABLET PO SCH (08:24)
[2021-02-13] MEDS: TORSEMIDE 20 MG TAB PO SCH ×2 (08:24→16:04)
[2021-02-13 08:25] VITALS: BP 124/77
[2021-02-13] MEDS: PANTOPRAZOLE 40MG TAB (PROTONIX) PO SCH (08:25)
[2021-02-13] MEDS: LINEZOLID 600MG TABLET (ZYVOX) PO SCH (08:25)
[2021-02-13] MEDS: ASPIRIN 81MG ENTERIC TABLET PO SCH (08:25)
[2021-02-13] MEDS: K-PHOS ORIGINAL (POT.ACID PHOSPHATE) 500MG TAB PO SCH (08:25)
[2021-02-13] MEDS: predniSONE 5 MG TAB PO SCH (08:26)
[2021-02-13] MEDS: GABAPENTIN 300 MG CAP PO SCH ×2 (08:26→16:04)
[2021-02-13] MEDS: VITAMIN B COMPLEX/VIT C CAP PO SCH (08:26)
[2021-02-13] MEDS: REMEDY PHYTOPLEX Z-GUARD PASTE 113GM TUBE (FROM STOREROOM PRODUCT) TOP SCH ×2 (08:27→15:45)
[2021-02-13] MEDS: MIRALAX *UNIT DOSE* 17GM PACKET PO SCH (08:27)
[2021-02-13] MEDS: DOCUSATE SODIUM 100MG CAPSULE PO SCH (08:28)
[2021-02-13] MEDS: **NOTE PATIENT COMMENT** MISC XX SCH (09:00)
[2021-02-13 10:14] LABS: BASO % 0.4 % (0.0-1.0); EOS # 0.1 10^3/uL (0.0-0.5); EOS % 1.3 % (0.0-3.0); HEMATOCRIT 32.1 % (42.0-52.0); HEMOGLOBIN 10.4 g/dl (13.5-17.5); LYMPH # 1.9 10^3/uL (1.5-5.0); LYMPH % 22.7 % (24.0-44.0); MEAN CORPUSCULAR HEMOGLOBIN 29.8 pg (27.0-33.0); MEAN CORPUSCULAR HGB CONC 32.4 g/dl (32.0-36.5); MONO # 0.8 10^3/uL (0.0-0.8); MONO % 9.4 % (2.0-8.0); NEUTROPHILS # 5.5 10^3/uL (1.5-8.5); NEUTROPHILS % 64.1 % (36.0-66.0); PLATELET COUNT, AUTOMATED 424 10^3/uL (150-450); RED BLOOD COUNT 3.49 10^6/uL (4.30-6.10); WHITE BLOOD COUNT 8.5 10^3/uL (4.0-10.0)
[2021-02-13 10:26] LABS: INR 1.27; PROTHROMBIN TIME 16.2 SECONDS (12.5-14.3)
[2021-02-13] MEDS: SIROLIMUS 1 MG TAB (RAPAMUNE) PO SCH (10:30)
[2021-02-13 10:36] LABS: BLOOD UREA NITROGEN 18 MG/DL (7-18); CALCIUM LEVEL 9.6 MG/DL (8.8-10.2); CARBON DIOXIDE LEVEL 25 MEQ/L (21-32); CHLORIDE LEVEL 101 MEQ/L (98-107); CREATININE FOR GFR 0.68 MG/DL (0.70-1.30); GLOMERULAR FILTRATION RATE > 60.0 (>42); GLUCOSE, FASTING 121 MG/DL (70-100); POTASSIUM SERUM 4.5 MEQ/L (3.5-5.1); SODIUM LEVEL 133 MEQ/L (136-145)
[2021-02-13] MEDS ORDERED: RISATAB3 PO (11:25)
[2021-02-13] MEDS ORDERED: WARF-58 PO (11:25)
[2021-02-13] MEDS ORDERED: OXYC-517 PO (11:25)
[2021-02-13] MEDS ORDERED: GABA-282 PO (11:25)
[2021-02-13] MEDS ORDERED: TORS20TA2 PO (11:25)
[2021-02-13] MEDS ORDERED: AZAT50TA2 PO (11:25)
[2021-02-13] MEDS ORDERED: DIGO0.123 PO (11:25)
[2021-02-13] MEDS ORDERED: AMIL25TA PO (11:25)
[2021-02-13] MEDS ORDERED: KPHOS50TA PO (11:25)
[2021-02-13] MEDS ORDERED: BACL10TA2 PO (11:25)
[2021-02-13] MEDS ORDERED: PRED5TA PO (11:25)
[2021-02-13] MEDS ORDERED: KLOR10TA76 PO (11:25)
[2021-02-13] MEDS ORDERED: ECOT81TA5 PO (11:25)
[2021-02-13] MEDS ORDERED: RAPA1TAB PO (11:25)
[2021-02-13] MEDS ORDERED: CINA30TA5 PO (11:25)
--- NOTE | 2021-02-13 12:49 | IPNPDOC ---
Text Note Date of Service The patient was seen on 02/13/21. NOTE Patient seen and examined. No new overnight events PHYSICAL EXAMINATION: General: Patient is awake, alert, oriented times three. Head and neck exam: Pupils are equally round and reactive to light. Neck is supple. He has old surgical scars on the back of the neck. Cardiovascular: S1, S2, regular rate. No edema of the right lower extremity. Respiratory: Chest is clear to auscultation bilaterally. Bilateral equal air entry. Abdomen: Soft, old surgical scars are noted. Musculoskeletal: Left above-knee amputation with dressing with no soakage/drainage. Decreased range of motion of bilateral shoulders because of rotator cuff surgery. Central nervous system (LUMBER MOVER): Patient is otherwise awake and alert. He is able to follow commands and able to communicate well. Assessment and Plan This is a very pleasant 76-year-old gentleman with multiple medical problems and a long-standing history of atherosclerosis of the [place] arteries who over the past 2 months has had progressively worse to rest pain in the left foot, and developed ulcerations between the fourth and fifth toe and at the base of the fourth and fifth toes on the plantar surface. He saw Dr. Monique who ordered an arterial study and the patient was appropriately referred to Vascular for revascularization. Angiography of the left leg by Dr Alex showed blockages in the SFA and Popliteal artery. Had successful Angioplasty left superficial femoral artery and proximal popliteal artery. He also had chronic total occlusions left anterior tibial artery, left posterior tibial artery, left peroneal artery. Tried Multiple repeat angioplasties of left anterior tibial artery, left posterior tibial artery, left peroneal artery which were unfortunately successful. So the patient was admitted for above knee amputation for acute left leg ischemia. He is s/p AKA on 01/28/21 nor in ARU getting acute rehab. 1. Acute on Chronic left leg ischemia unsuccessful angioplasties and had emergent left AKA on 01/28/21. Pt/OT as per ARU On Zyvox prophylactically for a total of [address] Spring. 2. Chronic Afib cont Digoxin and coumadin, continue Coumadin to maintain INR between 2-3 3. H/o Nephrolithiasis in transplanted kidney and ureteric stone and ureteric stricture s/p perc nephrostomy tube in the transplanted kidney removed in march 2020 Now no issues. Consult nephrology prn. 4. CAD: s/p stent 03/19/20. Cont ASA and coumadin 5. Chronic anemia iron deficiency. 6. IgA Nephropathy/ ESRD since 1999 s/p R renal transplant 2006 C/w azathioprine, sirolimus, prednisone calcitriol, consult nephrology prn 7. Secondary hyperparathyroidism: Calcitriol 8. Chronic Hypophosphatemia continue nutraphos. 9. HTN amlodipine, amiloride, torsemide 10.Aortic Stenosis Was planned for a TAVR in January 2021 11. Neuropathy: Gabapentin , cymbalta, percocet 12. Chronic back pain and neck pain with significant degenerative spine changes, status post reconstructive surgery. Gabapentin , cymbalta, percocet Disposition as per primary. VS,Fishbone, I+O VS, Fishbone, I+O Laboratory Tests 02/13/21 09:43 Vital Signs Date Time Temp Pulse Resp B/P (MAP) Pulse Ox O2 Delivery O2 Flow Rate FiO2 02/13/21 12:03 16 02/13/21 08:25 84 124/77 02/13/21 06:00 98.2 96 Room Air I&O- Last 24 Hours up to 6 AM 02/13/21 05:59 Intake Total 960 ml Output Total 751 ml Balance 209 ml HERMILA LIANG MD February 13, 2021 12:49
[2021-02-13 14:00] VITALS: BP 162/87
[2021-02-13] MEDS ORDERED: AMLO1TAB25 PO (14:14)
[2021-02-13] MEDS ORDERED: LINE1TAB6 PO (14:14)
--- NOTE | 2021-02-13 15:36 | IPN ---
PROGRESS NOTE DATE: 02/13/2021 Chato is doing well. He has no fever, chills, nausea, vomiting, or diarrhea. He does complain of being fatigued this morning and has back pain, which is chronic for him. He is anxious to go home. No fever or chills. Temperature is 96.7, pulse 70, respirations 16, blood pressure 162/87, oxygen saturation 98% on room air. HEART: Normal S1, S2, No murmurs. LUNGS: A few crackles at the left base but no wheezes, rales, or rhonchi. ABDOMEN: Soft, nontender. Stump with minimal erythema. There is an area of skin necrosis measuring about 3 x 3 cm posteriorly in the middle of the incision. There is no fluctuance. Induration has markedly decreased. There is no purulent discharge. Minimal bloody discharge on the dressing. Stump ultrasound showed a complex fluid collection, measuring 3.8 x 2.1 x 4 cm. May represent a hematoma, seroma, or an abscess. LABORATORY DATA: White count 10.4, hematocrit 32.1, platelets 424, 64% neutrophils, 23% lymphocytes, 9% monocytes. Sodium 133, potassium 4.5, chloride 101, bicarbonate 25, BUN 18, creatinine 0.68, glucose 121, calcium 9.6. CRP 4.53. Wound culture: Staphylococcus epidermidis. Staphylococcus coagulase negative. Methicillin resistant. Sensitive to linezolid and vancomycin. IMPRESSION: 1. Stump infection with culture positive for Staphylococcus epidermidis. Leukocytosis has resolved. Patient could be discharged home on as-needed linezolid 600 mg by mouth twice a day for 10 days. 2. History of end-stage renal disease with renal transplantation. Patient immunocompromised, on sirolimus, mycophenolate, and prednisone with stable creatinine at 0.68. PLAN: Discharge patient home today on linezolid 600 mg by mouth twice a day for 10 days. Case has been discussed with Dr. Abdul.
[2021-02-13] MEDS: WARFARIN SOD 2MG TAB PO SCH (16:05)
--- NOTE | 2021-02-25 13:23 | PMRDS ---
NAME: ELDA JACOBSEN [facility] WT ID#: [id number] JOB: [id number] BILL: 02/13/2021 ACCT: [id number] DOCTOR: FARHAN LAMAR MD PMR DISCHARGE SUMMARY DATE OF ADMISSION: 01/30/2021 DATE OF DISCHARGE: 02/13/2021 CHIEF COMPLAINT/DISCHARGE DIAGNOSIS: Left above-knee amputation. HISTORY OF PRESENT ILLNESS: 76-year-old male with past medical history of IgA nephropathy, status post bilateral nephrectomies with kidney transplant complicated by nephrolithiasis and ureteral stone/strictures, CAD status post stents, chronic Afib on Warfarin, chronic neck pain status post reconstructive surgery, aortic stenosis with plan for TAVR, hypertension, Pad with left foot ulcer followed by Dr. Monique and Dr. Ortez. He underwent multiple angioplasties that failed and underwent left-sided AKA on 01/28/2021 with postop anemia, leukocytosis and pain. He was restarted on Coumadin, evaluated by therapy and noted to have new mobility and ADL impairments and deemed medically appropriate for discharge to ARU on 01/30/2021. PAST MEDICAL HISTORY: As per HPI. HOSPITAL COURSE: The patient was admitted and enrolled in comprehensive PT/OT program. He received 24 hour nursing supervision and weekly team meetings were held to discuss his progress. The patient's left AKA incision site had areas of ecchymosis and lawrence-incisional maceration for which the patient was started on Clindamycin out of concern for cellulitis. CRP trended down, however, prior to discharge ID was consulted for recurrence of incisional swelling. The patient was started on IV Vancomycin. Wound culture was ordered growing coag negative Staph. Dr. Johns recommended patient to be sent home on oral Linezolid. Ultrasound was ordered of his AKA showing seroma/hematoma versus abscess. The patient's CRP continued to trend down. Regarding his history of aortic stenosis, per his copper flotation operator, his TAVR would need to be rescheduled with preop workup to be performed at a later date. The patient had persistent supratherapeutic INRs, his Coumadin doses were held on multiple occasions. On day of discharge the patient's INR was subtherapeutic, however, the patient was instructed to have his INR checked three times a week with script provided to nursing and follow up to be managed by his copper flotation operator and renal physician. The patient's pain was difficult to control with history of chronic pain on chronic opioids. He was treated with Oxycodone, Flexeril and Gabapentin. His muscle relaxant was switched to Baclofen once he was started on Linezolid due to interactions with Flexeril. The patient and family were educated on importance of not taking Flexeril while on Linezolid and to use Baclofen in the meantime. The patient had worsening left shoulder pain due to putting increased weight through his arms for transfers. Imaging was ordered showing glenohumeral joint space narrowing, no acute fracture, dislocation or subluxation. Cervical imaging was also obtained per family request with no acute fracture or subluxation. He was followed closely by renal physician, made initial gains in therapy. However, eventually did plateau due to pain and generalized weakness. The patient was deemed medically and functionally stable to return home with family. DISCHARGE MEDICATIONS: As per instructions. FUNCTIONAL HISTORY ON DISCHARGE: The patient was min-assist for bed mobility and functional transfers. Thank you for this referral.
== END 2021-02-13 16:40 | disposition home health service (06) | DRG 560 ==
LOC: M PM&R 16:40
PROVIDERS: ADMIT Physical Medicine & Rehabilitation; ATTEND Physical Medicine & Rehabilitation
DX: Z47.81 Encounter for orthopedic aftercare following surgical amputation (principal); N02.8 Recurrent and persistent hematuria with other morphologic changes; I48.20 Chronic atrial fibrillation, unspecified; Z94.0 Kidney transplant status; N25.81 Secondary hyperparathyroidism of renal origin; I50.32 Chronic diastolic (congestive) heart failure; T87.44 Infection of amputation stump, left lower extremity; Z89.612 Acquired absence of left leg above knee; Z90.5 Acquired absence of kidney; I25.10 Atherosclerotic heart disease of native coronary artery without angina pectoris; M54.2 Cervicalgia; I35.0 Nonrheumatic aortic (valve) stenosis; I11.0 Hypertensive heart disease with heart failure; Z74.1 Need for assistance with personal care; Z98.1 Arthrodesis status; G47.00 Insomnia, unspecified; Z79.82 Long term (current) use of aspirin; Z79.891 Long term (current) use of opiate analgesic; Z79.01 Long term (current) use of anticoagulants; Z79.899 Other long term (current) drug therapy; Z88.1 Allergy status to other antibiotic agents; Z88.5 Allergy status to narcotic agent; Z88.0 Allergy status to penicillin; Z88.8 Allergy status to other drugs, medicaments and biological substances; E83.39 Other disorders of phosphorus metabolism; E83.42 Hypomagnesemia; K59.00 Constipation, unspecified; G62.9 Polyneuropathy, unspecified; M19.90 Unspecified osteoarthritis, unspecified site; E83.51 Hypocalcemia; D63.1 Anemia in chronic kidney disease; Z95.2 Presence of prosthetic heart valve; I73.9 Peripheral vascular disease, unspecified; B95.7 Other staphylococcus as the cause of diseases classified elsewhere

== ENCOUNTER → 2021-02-24 | Outpatient (REF) | payer MEDICARE ==
[~2021-02-24] MED LIST changes: +AMLO1TAB25 PO; +BACL10TA2 PO; +KPHOS50TA PO; +LINE1TAB6 PO; +RISATAB3 PO
[2021-02-24 13:24] LABS: BASO % 0.1 % (0.0-1.0); EOS % 0.3 % (0.0-3.0); HEMATOCRIT 38.9 % (42.0-52.0); HEMOGLOBIN 12.2 g/dl (13.5-17.5); LYMPH # 1.7 10^3/uL (1.5-5.0); LYMPH % 18.9 % (24.0-44.0); MEAN CORPUSCULAR HEMOGLOBIN 29.5 pg (27.0-33.0); MEAN CORPUSCULAR HGB CONC 31.4 g/dl (32.0-36.5); MEAN CORPUSCULAR VOLUME 94.2 fl (80.0-96.0); MONO # 0.7 10^3/uL (0.0-0.8); MONO % 7.8 % (2.0-8.0); NEUTROPHILS # 6.4 10^3/uL (1.5-8.5); NEUTROPHILS % 72.4 % (36.0-66.0); PLATELET COUNT, AUTOMATED 192 10^3/uL (150-450); RED BLOOD COUNT 4.13 10^6/uL (4.30-6.10); WHITE BLOOD COUNT 8.8 10^3/uL (4.0-10.0)
[2021-02-24 13:37] LABS: INR 3.36; PROTHROMBIN TIME 34.8 SECONDS (12.5-14.3)
[2021-02-24 13:54] LABS: BLOOD UREA NITROGEN 24 MG/DL (7-18); C REACTIVE PROTEIN QUANTITATIV 1.82 MG/DL (0.00-0.30); CALCIUM LEVEL 10.1 MG/DL (8.8-10.2); CARBON DIOXIDE LEVEL 27 MEQ/L (21-32); CHLORIDE LEVEL 103 MEQ/L (98-107); CREATININE FOR GFR 0.81 MG/DL (0.70-1.30); GLOMERULAR FILTRATION RATE > 60.0 (>42); GLUCOSE, FASTING 140 MG/DL (70-100); SODIUM LEVEL 138 MEQ/L (136-145)
== END ==
LOC: M SFHCPLAZ 12:15
PROVIDERS: ATTEND Internal Medicine Infectious Disease
DX: T87.40 Infection of amputation stump, unspecified extremity (principal); I48.11 Longstanding persistent atrial fibrillation; Z79.01 Long term (current) use of anticoagulants

== ENCOUNTER → 2021-02-26 | Outpatient (REF) | payer MEDICARE ==
[2021-02-26 17:35] LABS: INR 4.11; PROTHROMBIN TIME 40.8 SECONDS (12.5-14.3)
== END ==
LOC: M LAB REF 16:49
PROVIDERS: ATTEND Internal Medicine Nephrology
DX: Z79.01 Long term (current) use of anticoagulants (principal)

== ENCOUNTER → 2021-03-02 | Outpatient (REF) | payer MEDICARE ==
[2021-03-02 18:05] LABS: INR 1.46; PROTHROMBIN TIME 18.1 SECONDS (12.5-14.3)
== END ==
LOC: M LAB REF 16:46
PROVIDERS: ATTEND Internal Medicine Nephrology
DX: Z79.01 Long term (current) use of anticoagulants (principal)

== ENCOUNTER → 2021-03-05 | Outpatient (REF) | payer MEDICARE | LOC: M LAB REF 17:15 | PROVIDERS: ATTEND Surgery Vascular Surgery | DX: T81.40XD Infection following a procedure, unspecified, subsequent encounter (principal); Z89.612 Acquired absence of left leg above knee ==

== ENCOUNTER → 2021-03-18 | Outpatient (REF) | payer MEDICARE ==
[~2021-03-18] MED LIST changes: -DOXY100C37 PO; +DOXY1CAP62 PO; -OXYC1TAB15 PO; +OXYC7.5T3 PO
[2021-03-18 12:31] LABS: INR 4.29; PROTHROMBIN TIME 42.2 SECONDS (12.5-14.3)
== END ==
LOC: M SHH 11:51
PROVIDERS: ATTEND Internal Medicine Nephrology
DX: Z79.01 Long term (current) use of anticoagulants (principal)

== ENCOUNTER → 2021-03-25 | Outpatient (REF) | payer MEDICARE ==
[2021-03-25 15:32] LABS: APPEARANCE, URINE CLEAR (CLEAR); BACTERIA, URINE AUTO NEGATIVE (NEGATIVE); BILIRUBIN, URINE AUTO NEGATIVE (NEGATIVE); BLOOD, URINE BLOOD NEGATIVE (NEGATIVE); COLOR, URINE YELLOW (YELLOW); GLUCOSE, URINE (UA) AUTO NEGATIVE (NEGATIVE); KETONE, URINE AUTO NEGATIVE (NEGATIVE); LEUKOCYTE ESTERASE, URINE AUTO NEGATIVE (NEGATIVE); NITRITE, URINE AUTO NEGATIVE (NEGATIVE); PROTEIN, URINE AUTO NEGATIVE (NEGATIVE); RBC, URINE AUTO 4 /HPF (0-3); SQUAMOUS EPITHELIAL CELL UR AU 0 /HPF (0-6); UROBILINOGEN, URINE AUTO 0.2 mg/dL (0.0-2.0); WBC, URINE AUTO 0 /HPF (0-3)
== END ==
LOC: M LAB REF 15:15
PROVIDERS: ATTEND Internal Medicine Nephrology
DX: N39.0 Urinary tract infection, site not specified (principal)

== ENCOUNTER → 2021-03-26 | Outpatient (CLI) | payer MEDICARE ==
[2021-03-26 12:31] LABS: INR 1.45
== END ==
LOC: M LAB 11:26
PROVIDERS: ATTEND Internal Medicine Nephrology
DX: Z51.81 Encounter for therapeutic drug level monitoring (principal); Z79.01 Long term (current) use of anticoagulants

== ENCOUNTER → 2021-04-13 | Outpatient (REF) | payer MEDICARE | LOC: M LAB REF 17:02 | PROVIDERS: ATTEND Internal Medicine Nephrology | DX: E83.42 Hypomagnesemia (principal) ==

== ENCOUNTER → 2021-04-23 | Outpatient (CLI) | payer MEDICARE ==
--- NOTE | 2021-04-23 16:44 | REP ---
INDICATION: SHORTNESS OF BREATH. COMPARISON: Comparison chest x-ray January 07, 2021. TECHNIQUE: Two views.. FINDINGS: Patient is status post aortic valve replacement. Cardiomegaly is observed. Thoracic and upper lumbar spine fusion hardware is again noted in place. Cervical spine fusion hardware is also present. Mitral annular calcification is observed. The heart is enlarged. No infiltrate is seen. No evidence of pulmonary edema or pleural effusion. IMPRESSION: Cardiomegaly status post aortic valve replacement. No evidence of pleural effusion or pulmonary edema.. <Electronically signed by Rene Warner > 04/23/21 [id number]
== END ==
LOC: M RAD 16:13
PROVIDERS: ATTEND Internal Medicine Nephrology
DX: R06.02 Shortness of breath (principal); I51.7 Cardiomegaly

== ENCOUNTER 2021-04-29 10:05 | Inpatient (IN) | payer MEDICARE ==
[~2021-04-29] VITALS: Ht 172.7 cm; Wt 54.9 kg
--- NOTE | 2021-04-29 10:43 | REP ---
INDICATION: CHEST PAIN. COMPARISON: 04/23/2021. TECHNIQUE: Single portable AP view of the chest was performed. FINDINGS: There is no acute infiltrate or pulmonary edema. There is mild elevation of the right hemidiaphragm. There is mild cardiomegaly. Mediastinal silhouette is unchanged. Metallic internal fixation throughout the visualized cervical and thoracic spine. A prosthetic heart valve is noted. IMPRESSION: No acute pulmonary disease. <Electronically signed by Fantasma Dunn > 04/29/21 103
[2021-04-29] MEDS: NITROGLYCERIN 0.4 MG SUBL TABLET SL PRN ×3 (11:10→11:42)
[2021-04-29 11:30] LABS: BASO % 0.3 % (0.0-1.0); EOS % 0.1 % (0.0-3.0); HEMATOCRIT 36.6 % (42.0-52.0); HEMOGLOBIN 11.6 g/dl (13.5-17.5); LYMPH % 13.9 % (24.0-44.0); MEAN CORPUSCULAR HEMOGLOBIN 29.6 pg (27.0-33.0); MEAN CORPUSCULAR HGB CONC 31.7 g/dl (32.0-36.5); MEAN CORPUSCULAR VOLUME 93.4 fl (80.0-96.0); MONO # 0.8 10^3/uL (0.0-0.8); NEUTROPHILS # 5.5 10^3/uL (1.5-8.5); PLATELET COUNT, AUTOMATED 232 10^3/uL (150-450); RED BLOOD COUNT 3.92 10^6/uL (4.30-6.10); WHITE BLOOD COUNT 7.5 10^3/uL (4.0-10.0)
[2021-04-29 11:41] LABS: INR 1.4; PROTHROMBIN TIME 17.6 SECONDS (12.7-14.5)
[2021-04-29 11:42] LABS: PARTIAL THROMBOPLASTIN TIME 29.8 SECONDS (25.9-37.0)
[2021-04-29] MEDS ORDERED: MORPHINE 2 MG/ML 1ML VIAL (J2270) IV PRN (11:55)
[2021-04-29 12:01] LABS: ALBUMIN 3.4 GM/DL (3.2-5.2); BILIRUBIN,DIRECT 0.3 MG/DL (0.0-0.2); BILIRUBIN,TOTAL 0.7 MG/DL (0.2-1.0); FREE T4 1.25 NG/DL (0.76-1.46); THYROID STIMULATING HORMONE 0.655 uIU/ML (0.358-3.740); TOTAL PROTEIN 6.2 GM/DL (6.4-8.2)
[2021-04-29] MEDS ORDERED: ISOVUE-370 76% 100ML VIAL As Ordered ONE (12:31)
[2021-04-29 12:52] LABS: RSV AMPLIFICATION NEGATIVE (NEGATIVE)
--- NOTE | 2021-04-29 12:59 | ECGEPIP ---
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
[2021-04-29] MEDS ORDERED: TAMS1CAP17 (13:25)
[2021-04-29] MEDS ORDERED: CARI1TAB7 PO (13:25)
[2021-04-29] MEDS ORDERED: AMIL5TAB4 PO (13:25)
[2021-04-29] MEDS ORDERED: MORP-69 PO (13:25)
[2021-04-29] MEDS ORDERED: CLOP75TA2 PO (13:25)
--- NOTE | 2021-04-29 13:40 | REP ---
INDICATION: chest pain. COMPARISON: None. TECHNIQUE: CT angiogram chest performed following the intravenous administration of 100 cc of Isovue 370. Sagittal and coronal reconstruction images are performed. FINDINGS: Lungs: Clear, no infiltrate or nodule. There are scattered interstitial fibrotic changes throughout both lungs. Mediastinum: No adenopathy. Pulmonary arteries: No evidence of pulmonary embolism. Kiera: No adenopathy. Axilla: No adenopathy. Pleura: No effusion. Heart: There is mild cardiomegaly. Thoracic aorta: No aneurysm or dissection. Upper abdominal structures: There is a small hiatal hernia. Retroperitoneal calcifications are again noted. Visualized osseous structures: There is anterior dislocation of the left humeral head. There is a moderate to large left glenohumeral joint effusion with scattered periarticular calcifications. Chronic compression deformities of the lower thoracic vertebral bodies appear stable. Diffuse sclerotic density is seen throughout the T9 vertebral body. There appears to be a healing fracture at this location. Rods and screws are seen throughout the visualized spine. There is an old healed sternal fracture superiorly with mild anterior displacement of the more inferior aspect.. IMPRESSION: No CT evidence of pulmonary embolism. No infiltrate seen. Anterior dislocation of the left humeral head. Moderate to large effusion of the left glenohumeral joint with scattered periarticular calcifications. Stable chronic compression deformities of lower thoracic spine. Diffuse sclerotic density throughout the T9 vertebral body appears to represent a healing fracture at this location. <Electronically signed by Fantasma Dunn > 04/29/21 [id number]
--- NOTE | 2021-04-29 14:26 | REP ---
INDICATION: pain. COMPARISON: None. TECHNIQUE: There are three views. FINDINGS: There is anterior inferior subcoracoid dislocation of the humeral head. No fractures are identified. Internal fixation of the upper thoracic spine and of the cervical spine is noted. IMPRESSION: Right humeral head dislocation as described. <Electronically signed by Fantasma Clements > 04/29/21 [id number]
[2021-04-29] MEDS ORDERED: ONDA-83 PO (16:27)
[2021-04-29] MEDS ORDERED: OXYC-517 PO (16:27)
[2021-04-29] MEDS ORDERED: RISATAB3 PO (16:27)
[2021-04-29] MEDS ORDERED: TORS20TA2 PO (16:27)
[2021-04-29] MEDS ORDERED: CINA30TA4 PO (16:27)
[2021-04-29] MEDS ORDERED: AZAT50TA2 PO (16:27)
[2021-04-29] MEDS ORDERED: AMLO1TAB25 PO (16:27)
[2021-04-29] MEDS ORDERED: COLA100C5 PO (16:27)
[2021-04-29] MEDS ORDERED: DIGO0.123 PO (16:27)
[2021-04-29] MEDS ORDERED: POTA10TA16 PO (16:27)
[2021-04-29] MEDS ORDERED: KPHOS50TA PO (16:27)
[2021-04-29] MEDS ORDERED: GABA-282 PO (16:27)
[2021-04-29] MEDS ORDERED: WARF-58 PO (16:27)
[2021-04-29] MEDS ORDERED: PRED5TA PO (16:27)
[2021-04-29] MEDS ORDERED: SIRO1TAB3 PO (16:27)
[2021-04-29] MEDS ORDERED: RA M10TA PO (16:27)
[2021-04-29] MEDS ORDERED: HOME MED LIST COMPLETE! XX SCH (16:30)
[2021-04-29] MEDS ORDERED: DOCUSATE SODIUM 100MG CAPSULE PO PRN (17:15)
[2021-04-29 18:05] VITALS: BP 135/83
[2021-04-29] MEDS: WARFARIN SOD 3MG TAB PO SCH (18:35)
[2021-04-29] MEDS: oxyCODONE 5MG TAB PO PRN (18:35)
[2021-04-29] MEDS: LACTOBACILLUS ACIDOPHILUS CAP (BACID) PO SCH ×2 (18:35→20:48)
--- NOTE | 2021-04-29 18:39 | CR.PDOC ---
General Date of Consultation: Apr 29, 2021 Consultation REASON FOR CONSULTATION/CHIEF COMPLAINT: Left shoulder dislocation HISTORY OF PRESENT ILLNESS: The patient had a recent TAVR surgery at [facility]. He reports persisting pain in his neck and shoulders bilaterally since the procedure. He was seen in the ED for SOB on April 23 at [facility]. A chest xray showed the Left shoulder without obvious dislocation at that time. He reports that this is the day his symptoms worsened in his bilateral shoulders, neck, etc. He was seen at [facility] the next day, where he reportedly had shoulder, neck, and back xrays performed. He also states that he received bilateral cortisone injections to his shoulders. At this time, I do not have access to the imaging reports or notes from this visit. He states that he was having right shoulder pain and a radiating left chest pain today and was told by his Aircraft Navigator to report to the ED. CT chest showed evidence of a left shoulder anterior dislocation with significant effusion, suggestive of a subacute dislocation. He does not report any acute onset pain or otherwise that would help identify when his left shoulder dislocation occurred. He is complaining more about his right shoulder in the ED and states that he is known to have bilateral large rotator cuff tears. Overall, he appears to be complaining of generalized pain and discomfort, as well. ALLERGIES: Please see below. HOME MEDICATIONS: Please see below. PAST MEDICAL HISTORY: 1. CAD s/p cardiac stent x2 2. Aortic Stenosis s/p TAVR 3. ESRD s/p renal transplant 4. Afib 5. arthritis (right hand) 6. compression fxs (back) 7. herniated disc x5 8. Basal cell CA PAST SURGICAL HISTORY: 1. TAVR (2020) 2. renal transplant (07/10/2007) 3. cardaic stent x2 (2019) 4. ant. cervical discectomy and post. cervical fusion C2-C7 (2013) 5. abd hernia repair x3 6. renal stone removal x3 w/ right nephrostomy tube 7. appendectomy 8. right foot surgery 9. meniscus repair left knee 10. laminectomy L4-L5 11. Basal cell CA removal 12. LLE AKA SOCIAL HISTORY: Marital status: Resides in: home Tobacco use: former smoker, quit 42yrrs ago ETOH: former alcohol use, quit >10yrs Illicit drug use: former marijuana use, quit 1wks ago FAMILY HISTORY: N/A REVIEW OF SYSTEMS: Patient reports generalized diffuse pain in addition to shoulders, neck and back. PHYSICAL EXAMINATION: VITAL SIGNS: Please see below. GENERAL APPEARANCE: patient appears to be cachetic, with significant diffuse bruising to his extremities and across his chest. He does have a left AKA. The patient is in mild distress, unable to find a comfortable position due to diffuse body aches and pains. The upper extremities bilaterally demonstrate intact and reportedly comparable sensation to the axillary, median, ulnar and radial n distributions. The patient is unable to extend his right thumb, a chronic issue, reportedly. Otherwise, he has grossly intact motor to the median, ulnar and radial and AIN n distributions. He is unable to elevate his arms in forward flexion from the shoulder. His left arm is able to reach across his body actively, but the right is not. There is a prominence anteriorly consistent with a anterior dislocation of the proximal humerus. Reported L arm fistula as per Hospitalist service. With gentle motion, I was able to passively forward elevate the patient's left shoulder, provide traction with IR and ER and adduction of the arm, which lead to an apparent reduction of the left shoulder. Unfortunately, after relaxing the maneuver, the shoulder dislocated. I reattempted the maneuver and there was an audible and painful click, and the shoulder reduced again, but again, the reduction was lost after relaxing the arm. LABORATORY DATA: Please see below. ASSESSMENT/PLAN: 1. The patient will be admitted to the hospitalist service for cardiac workup regarding chest pain -New LBBB 2. The patient demonstrates an irreducible left shoulder of indeterminate age. This is supported by significant shoulder effusion seen on CT scan. He did have a chest xray on the 23 of April showing no obvious dislocation of the shoulder, however, this was only a single view. He was reportedly seen at [facility] for shoulder pain and received bilateral shoulder injections on the . I will try to get these records and possible imaging results from that visit, which may help determine the chronicity of this sub acute left shoulder dislocation. I would also like to order an MRI to determine what structural issue may be responsible for the irreducible nature of the dislocation. When I have additional information, I will discuss with shoulder subspecialty service re: subacute L shoulder dislocation. Vital Signs/I&O Vital Signs Date Time Temp Pulse Resp B/P (MAP) Pulse Ox O2 Delivery O2 Flow Rate FiO2 04/29/21 14:05 19 98 Room Air 04/29/21 12:16 62 125/74 (91) 04/29/21 10:06 96.7 Laboratory Data Labs 24H Laboratory Tests 2 04/29/21 10:22: Immature Granulocyte % (Auto) 2.7, Neutrophils (%) (Auto) 73.0H, Lymphocytes (%) (Auto) 13.9L, Monocytes (%) (Auto) 10.0H, Eosinophils (%) (Auto) 0.1, Basophils (%) (Auto) 0.3, Neutrophils # (Auto) 5.5, Lymphocytes # (Auto) 1.0L, Monocytes # (Auto) 0.8, Eosinophils # (Auto) 0.0, Basophils # (Auto) 0.0, Nucleated Red Blood Cells % (auto) 0.0, Prothrombin Time 17.6H, Prothromb Time International Ratio 1.40, Activated Partial Thromboplast Time 29.8, Total Bilirubin 0.7, Direct Bilirubin 0.3H, Aspartate Amino Transf (AST/SGOT) 40H, Alanine Aminot ransferase (ALT/SGPT) 53, Alkaline Phosphatase 137H, DP-Yzz-W-Type Natriuretic Peptide 641H, Total Protein 6.2L, Albumin 3.4, Albumin/Globulin Ratio 1.2, Lipase 37L, Thyroid Stimulating Hormone (TSH) 0.655, Free Thyroxine 1.25 04/29/21 11:19: POC Glucose (Misc Panel) 141H, POC Sodium (Misc Panel) 137, POC Potassium (Misc Panel) 3.7, POC Chloride (Misc Panel) 99, POC Total CO2 (Misc Panel) 25.0, POC Blood Urea Nitrogen (Misc Panel 14, POC Ionized Calcium (Misc Panel) 5.2, POC Creatinine (Misc Panel) 0.5L, POC Hematocrit (Misc Panel) 36.0L 04/29/21 11:20: POC Troponin I (Misc) 0.04 04/29/21 11:32: Coronavirus (COVID-19)(PCR) NEGATIVE, Influenza Type A (RT-PCR) NEGATIVE, Influenza Type B (RT-PCR) NEGATIVE, Respiratory Syncytial Virus (PCR) NEGATIVE 04/29/21 13:03: POC Troponin I (Misc) 0.05 CBC/BMP Laboratory Tests 04/29/21 10:22 Allergies Coded Allergies: Quinolones (Verified Allergy, Unknown, 04/29/21) oxybutynin (Verified Allergy, Unknown, 04/29/21) tamsulosin (Verified Allergy, Unknown, 04/29/21) ciprofloxacin (Verified Adverse Reaction, Intermediate, HEART RACES, 04/29/21) levofloxacin (Verified Adverse Reaction, Intermediate, HEART RACES, 04/29/21) amoxicillin (Verified Adverse Reaction, Mild, can take few prior to dentist but can not take for 10 days, 04/29/21) cefuroxime (Verified Adverse Reaction, Mild, ANXIETY, 04/29/21) codeine (Verified Adverse Reaction, Mild, AGITATION, 04/29/21) doxycycline (Verified Adverse Reaction, Mild, UPSET STOMACH, 04/29/21) lorazepam (Verified Adverse Reaction, Mild, AGITATION, 04/29/21) pregabalin (Verified Adverse Reaction, Mild, ANXIETY, DROWSINESS, 04/29/21) tizanidine (Verified Adverse Reaction, Unknown, 04/29/21) Home Medications Scheduled Amiloride HCl (Amiloride HCl) 5 Mg Tablet, 5 MG PO QHS, (Reported) Amlodipine Besylate (Amlodipine Besylate) 10 Mg Tablet, 10 MG PO DAILY, (Reported) Azathioprine (Azathioprine) 50 Mg Tablet, 100 MG PO DAILY, (Reported) Cinacalcet (Sensipar) 30 Mg Tablet, 30 MG PO 3XW, (Reported) SUN, TUES, THGIORGIO Clopidogrel Bisulfate (Clopidogrel) 75 Mg Tablet, 75 MG PO DAILY, (Reported) Digoxin (Digoxin) 125 Mcg Tablet, 125 MCG PO DAILY, (Reported) Gabapentin (Gabapentin) 300 Mg Capsule, 600 MG PO TID, (Reported) Hydroxyzine HCl (Hydroxyzine HCl) 25 Mg Tablet, 25 MG PO QHS, (Reported) L.acidoph/L.bulg/B.bif/S.therm (Diane-Bid Caplet) 1 Each Tablet, 1 TAB PO WMHS, (Reported) Morphine Sulfate (Morphine Sulfate ER) 15 Mg Tablet.er, 15 MG PO DAILY, (Reported) Potassium Chloride (Potassium Chloride) 10 Meq Tab.er.prt, 20 MEQ PO QHS, (Reported) Potassium Phosphate Monobasic (K-Phos Original) 500 Mg Tablet.kasey, 500 MG PO DAILY, (Reported) Prednisone (Prednisone) 5 Mg Tablet, 5 MG PO DAILY, (Reported) Sirolimus (Sirolimus) 1 Mg Tablet, 2 MG PO DAILY, (Reported) Torsemide (Torsemide) 20 Mg Tablet, 20 MG PO QHS, (Reported) Vitamin B Complex Vit C No.3 (B Complex with Vitamin C) 1 Cap Cap, 1 CAP PO DAILY, (Reported) Warfarin Sodium (Warfarin Sodium) 3 Mg Tablet, 3 MG PO QPM, (Reported) Scheduled PRN Acetaminophen (Acetaminophen) 325 Mg Tablet, 650 MG PO Q4H PRN for MILD PAIN (PS 1-4), (Reported) Carisoprodol (Carisoprodol) 350 Mg Tablet, 350 MG PO BID PRN for SPASMS, (Repor lars) Docusate Sodium (Colace) 100 Mg Capsule, 100 MG PO DAILY PRN for CONSTIPATION, (Reported) Melatonin (Melatonin) 10 Mg Tablet, 10 MG PO QHS PRN for SLEEP, (Reported) Ondansetron HCl (Ondansetron HCl) 4 Mg Tablet, 4 MG PO Q8H PRN for NAUSEA OR VOMITING, (Reported) Oxycodone HCl (Oxycodone HCl) 5 Mg Tablet, 5 MG PO Q6H PRN for SEVERE PAIN (PS 8-10), (Reported) ASHLEY SPRINGER MD Apr 29, 2021 18:39
--- NOTE | 2021-04-29 18:46 | HPEPDOC ---
[facility] Medical History & Physical Date of Admission Apr 29, 2021 Date of Service: Apr 29, 2021 Attending Physician: MANNY HERRERA MD History and Physical CHIEF COMPLAINT: b/l shoulder pain HISTORY OF PRESENT ILLNESS: David is 76M Aortic Stenosis s/p TAVR 2wks ago on Warfarin, Afib on Warfarin presents w/ worsening b/l shoulder pain. Pt is here alone and poor historian. He recently underwent TAVR in [place] (2wks ago) for aortic stenosis and denies complications w/ surgery or postop. Reports chronic b/l shoulder pain w/ worsening right shoulder pain that he describes as severe and aching. Also reports new onset severe aching left shoulder pain that radiates down his left arm, along the left side of his body, and into his RLE. He tells me his shoulder pain worsened after his TAVR and he f/u w/ [facility] 04/24. Reports normal b/l shoulder xrays in office on 04/24 and he received b/l shoulder cortisone injections at that visit. He tells me he is pushed in his wheelchair at home and is moved by family when necessary. Denies recent trauma. Reports right sided neck pain s/p central line during TAVR. Reports chronic back pain, weakness, numbness b/l UE. Reports vomiting once today. Denies chest pain, SOB. PAST MEDICAL HISTORY: 1. CAD s/p cardiac stent x2 2. Aortic Stenosis s/p TAVR 3. ESRD s/p renal transplant 4. Afib 5. arthritis (right hand) 6. compression fxs (back) 7. herniated disc x5 8. Basal cell CA PAST SURGICAL HISTORY: 1. TAVR (2020) 2. renal transplant (07/10/2007) 3. cardaic stent x2 (2019) 4. ant. cervical discectomy and post. cervical fusion C2-C7 (2013) 5. abd hernia repair x3 6. renal stone removal x3 w/ right nephrostomy tube 7. appendectomy 8. right foot surgery 9. meniscus repair left knee 10. laminectomy L4-L5 11. Basal cell CA removal 12. LLE AKA SOCIAL HISTORY: Marital status: Resides in: home Tobacco use: former smoker, quit 42yrrs ago ETOH: former alcohol use, quit >10yrs Illicit drug use: former marijuana use, quit 1wks ago FAMILY HISTORY: N/A ALLERGIES: Please see below. REVIEW OF SYSTEMS: CONSTITUTIONAL: denies fevers HEENT: denies headaches CARDIOVASCULAR: denies chest pain RESPIRATORY: denies SOB GASTROINTESTINAL: reports abd pain, vomiting MUSCULOSKELETAL: limited ROM right shoulder, worsening b/l shoulder pain, soreness in RLE, right sided neck pain w/ limited ROM NEUROLOGICAL: numbness/tingling b/l UE, generalized weakness HOME MEDICATIONS: Please see below. PHYSICAL EXAMINATION: VITAL SIGNS: Temperature 96.7, pulse 62, respiratory rate 19, blood pressure 125/74, pulse oximetry 98% on room air. GENERAL APPEARANCE: laying in bed, alert and awake, agitated and in pain HEENT: NC/AT, EOMI, nares patent, moist mucous membranes, poor dentition CARDIOVASCULAR: normal heart sounds, RRR, systolic murmur, no RG LUNGS: CTA b/l, no WRR, no accessory muscles used ABDOMEN: normal BS, soft, RLQ abd pain w/ mild palpation, nondistended SKIN: significant bruising right neck/collarbone, b/l UE; IV in right EJV (site clean, w/out bleeding or signs of infxn) EXTREMITIES: no edema RLE, AKA LLE, limited ROM b/l UE (45degree active flexion b/l shoulders, full passive ROM b/l shoulders), swelling around left shoulder, fistula left forearm (intact) NEUROLOGICAL: no FND, sensation intact b/l UE, refer to ortho consult note for further neuro exam PSYCHIATRIC: AOx2 (not oriented to time), poor historian and confused of timeline of events, normal mood/affect LABORATORY DATA: See below. IMAGING: CXR (04/29) No acute pulmonary disease CTA (04/29) No CT evidence of pulmonary embolism. No infiltrate seen. Anterior dislocation of the left humeral head. Moderate to large effusion of the left glenohumeral joint with scattered periarticular calcifications. Stable chronic compression deformities of lower thoracic spine. Diffuse sclerotic density throughout the T9 vertebral body appears to represent a healing fracture at this location. Left shoulder xray (04/29) Right humeral head dislocation MICROBIOLOGY: Please see below. ASSESSMENT/PLAN: 76M PMH Afib on Warfarin and Plavix, s/p TAVR 2wks ago w/ worsening b/l chronic shoulder pain found to have new LBBB and left shoulder dislocation w/ effusion, concerning for possible tendon rupture. #New LBBB EKG significant for progression of prior left ant fascicular block, possibly related to recent surgery RRR on examination Monitor cardiac markers, INR On telemetry for monitoring #Possible ACS Unlikely, given hx and clinical presentation Troponin 0.04, 0.05 Monitor cardiac markers, INR On Warfarin, Plavix #Left shoulder dislocation w/ effusion, possible tendon rupture s/p cortisone injection 04/24 Unclear acuity of dislocation Shoulder able to be reduced but does not stay in socket Obtaining notes and images from pt's 04/24 visit to [facility] Wally up, pending Ortho on consult #Chronic b/l shoulder pain Limited active ROM. Normal passive ROM Continue home Oxycodone, Morphine PRN Ortho on consult- currently pursuing MRI for further investigation #Afib RRR on examination On Digoxin On Plavix, Warfarin #CAD s/p cardiac stent x2 On Plavix, Warfarin #s/p renal transplant On Sirolimus, Prednisone, Azathioprine #HTN On Amlodipine, Torsemide #Neuropathy On Gabapentin, Carisoprodol #GERD On Zofran PRN #MRSA+ VIP status #DVT prophylaxis On Warfarin, Plavix DISPO: pending clinical improvement CODE STATUS: Full code Activity as tolerated w/ fall risk precautions 2Na diet Vital Signs Vital Signs Date Time Temp Pulse Resp B/P (MAP) Pulse Ox O2 Delivery O2 Flow Rate FiO2 04/29/21 14:05 19 98 Room Air 04/29/21 12:16 62 125/74 (91) 04/29/21 10:06 96.7 Laboratory Data Labs 24H Laboratory Tests 2 04/29/21 10:22: Immature Granulocyte % (Auto) 2.7, Neutrophils (%) (Auto) 73.0H, Lymphocytes (%) (Auto) 13.9L, Monocytes (%) (Auto) 10.0H, Eosinophils (%) (Auto) 0.1, Basophils (%) (Auto) 0.3, Neutrophils # (Auto) 5.5, Lymphocytes # (Auto) 1.0L, Monocytes # (Auto) 0.8, Eosinophils # (Auto) 0.0, Basophils # (Auto) 0.0, Nucleated Red Blood Cells % (auto) 0.0, Prothrombin Time 17.6H, Prothromb Time International Ratio 1.40, Activated Partial Thromboplast Time 29.8, Total Bilirubin 0.7, Direct Bilirubin 0.3H, Aspartate Amino Transf (AST/SGOT) 40H, Alanine Aminotransferase (ALT/SGPT) 53, Alkaline Phosphatase 137H, IC-Vxn-I-Type Natriuretic Peptide 641H, Total Protein 6.2L, Albumin 3.4, Albumin/Globulin Ratio 1.2, Lipase 37L, Thyroid Stimulating Hormone (TSH) 0.655, Free Thyroxine 1.25 04/29/21 11:19: POC Glucose (Misc Panel) 141H, POC Sodium (Misc Panel) 137, POC Potassium (Misc Panel) 3.7, POC Chloride (Misc Panel) 99, POC Total CO2 (Misc Panel) 25.0, POC Blood Urea Nitrogen (Misc Panel 14, POC Ionized Calcium (Misc Panel) 5.2, POC Creatinine (Misc Panel) 0.5L, POC Hematocrit (Misc Panel) 36.0L 04/29/21 11:20: POC Troponin I (Misc) 0.04 04/29/21 11:32: Coronavirus (COVID-19)(PCR) NEGATIVE, Influenza Type A (RT-PCR) NEGATIVE, Influenza Type B (RT-PCR) NEGATIVE, Respiratory Syncytial Virus (PCR) NEGATIVE 04/29/21 13:03: POC Troponin I (Misc) 0.05 CBC/BMP Laboratory Tests 04/29/21 10:22 Home Medications Scheduled Amiloride HCl (Amiloride HCl) 5 Mg Tablet, 5 MG PO QHS Amlodipine Besylate (Amlodipine Besylate) 10 Mg Tablet, 10 MG PO DAILY Azathioprine (Azathioprine) 50 Mg Tablet, 100 MG PO DAILY Cinacalcet (Sensipar) 30 Mg Tablet, 30 MG PO 3XW SUN, TUES, THURS Clopidogrel Bisulfate (Clopidogrel) 75 Mg Tablet, 75 MG PO DAILY Digoxin (Digoxin) 125 Mcg Tablet, 125 MCG PO DAILY Gabapentin (Gabapentin) 300 Mg Capsule, 600 MG PO TID Hydroxyzine HCl (Hydroxyzine HCl) 25 Mg Tablet, 25 MG PO QHS L.acidoph/L.bulg/B.bif/S.therm (Diane-Bid Caplet) 1 Each Tablet, 1 TAB PO WMHS Morphine Sulfate (Morphine Sulfate ER) 15 Mg Tablet.er, 15 MG PO DAILY Potassium Chloride (Potassium Chloride) 10 Meq Tab.er.prt, 20 MEQ PO QHS Potassium Phosphate Monobasic (K-Phos Original) 500 Mg Tablet.kasey, 500 MG PO DAILY Prednisone (Prednisone) 5 Mg Tablet, 5 MG PO DAILY Sirolimus (Sirolimus) 1 Mg Tablet, 2 MG PO DAILY Torsemide (Torsemide) 20 Mg Tablet, 20 MG PO QHS Vitamin B Complex Vit C No.3 (B Complex with Vitamin C) 1 Cap Cap, 1 CAP PO DAILY Warfarin Sodium (Warfarin Sodium) 3 Mg Tablet, 3 MG PO QPM Scheduled PRN Acetaminophen (Acetaminophen) 325 Mg Tablet, 650 MG PO Q4H PRN for MILD PAIN (PS 1-4) Carisoprodol (Carisoprodol) 350 Mg Tablet, 350 MG PO BID PRN for SPASMS Docusate Sodium (Colace) 100 Mg Capsule, 100 MG PO DAILY PRN for CONSTIPATION Melatonin (Melatonin) 10 Mg Tablet, 10 MG PO QHS PRN for SLEEP Ondansetron HCl (Ondansetron HCl) 4 Mg Tablet, 4 MG PO Q8H PRN for NAUSEA OR VOMITING Oxycodone HCl (Oxycodone HCl) 5 Mg Tablet, 5 MG PO Q6H PRN for SEVERE PAIN (PS 8-10) Allergies Coded Allergies: Quinolones (Verified Allergy, Unknown, 04/29/21) oxybutynin (Verified Allergy, Unknown, 04/29/21) tamsulosin (Verified Allergy, Unknown, 04/29/21) ciprofloxacin (Verified Adverse Reaction, Intermediate, HEART RACES, 04/29/21) levofloxacin (Verified Adverse Reaction, Intermediate, HEART RACES, 04/29/21) amoxicillin (Verified Adverse Reaction, Mild, can take few prior to dentist but can not take for 10 days, 04/29/21) cefuroxime (Verified Adverse Reaction, Mild, ANXIETY, 04/29/21) codeine (Verified Adverse Reaction, Mild, AGITATION, 04/29/21) doxycycline (Verified Adverse Reaction, Mild, UPSET STOMACH, 04/29/21) lorazepam (Verified Adverse Reaction, Mild, AGITATION, 04/29/21) pregabalin (Verified Adverse Reaction, Mild, ANXIETY, DROWSINESS, 04/29/21) tizanidine (Verified Adverse Reaction, Unknown, 04/29/21) GME ATTESTATION My faculty preceptor for this patient encounter was physically present during the encounter and was fully available. All aspects of the patient interview, examination, medical decision making process, and medical care plan development were reviewed and approved by the faculty preceptor. The faculty preceptor is aware and concurs with the plan as stated in the body of this note and will attest to such by his/her cosignature. ATTENDING NOTE I personally examined Mr. Kwon together with the housestaff team and together we acquired his history as best he could give, unfortunately he was a poor historian, examined him together and discussed his investigative findings including EKG, labs and imaging together. I agree with the above excellent summary of the findings and the medical plan as well. Briefly, Mr. Kwon has baseline arthritic complaints and has a history of bilateral rotator cuff tears and follows with [facility] orthopedics where he had recent XR films of both shoulders 1 week prior and bilateral cortisone injections, who also recently underwent a TAVR approximately 2w ago who presented with worsening bilateral shoulder pain most concerning of which was L shoulder and chest pain radiating down his arm. Medicine was called for admission for potential cardiac chest pain despite relatively stable EKG with a LBBB that was previously incomplete as LAFB before his TAVR with negative troponins x2 with reproducible pain by MSK maneuvers and a clearly dislocated L humerus with surrounding edema on imaging. We are admitting him to medicine to rule out ACS that is unlikely given the ab ove, and will also consult orthopedics for the dislocated L shoulder with unclear chronicity of this finding. A-FIB/CHADSVASC A-FIB History Current/History of A-Fib/PAF?: Yes Current PO Anticoag Therapy: Yes Age/Risk Factor Scoring CHADSVASC: CHADSVASC Response (Comments) Value Age Risk Factor Age >/= 75 years old 2 Gender Risk Factor Male 0 Hx of CHF No 0 Hx of HTN Yes 1 Hx of Stroke/TIA/or VTE No 0 Hx of Diabetes No 0 Hx of Vascular Disease Yes 1 Total 4 Brenda Figueroa DO Apr 29, 2021 18:46 MANNY HERRERA MD Apr 30, 2021 08:35
[2021-04-29] MEDS: TORSEMIDE 20 MG TAB PO SCH (20:48)
[2021-04-29] MEDS: POTASSIUM CHLORIDE 10 MEQ SR TABLET PO SCH (20:48)
[2021-04-29] MEDS: aMILoride 5 MG TAB PO SCH (20:48)
[2021-04-29] MEDS: GABAPENTIN 300 MG CAP PO SCH (20:48)
[2021-04-29] MEDS: ACETAMINOPHEN TAB 650MG DOSE (2X325MG) PO PRN (20:49)
[2021-04-29] MEDS: hydrOXYzine 25 MG TAB PO SCH (20:49)
[2021-04-29 22:00] VITALS: BP 129/77
[2021-04-29] MEDS ORDERED: MORPHINE 4 MG/ML 1ML VIAL/SYRINGE (J2270) IV ONE (22:15)
[2021-04-29] MEDS: carisoprodoL 350 MG TAB PO PRN (23:48)
[2021-04-30 00:08] LABS: CK-MB VALUE MASS < 1.0 NG/ML (<3.6); CPK CREATINE PHOSPHOKINASE 61 U/L (39-308); MB/CK RELATIVE INDEX 1.64 (< OR =4); TROPONIN I 0.05 NG/ML (< 0.10)
[2021-04-30] MEDS: oxyCODONE 5MG TAB PO PRN ×3 (01:24→18:11)
[2021-04-30 06:00] VITALS: BP 135/79
[2021-04-30] MEDS: ACETAMINOPHEN TAB 650MG DOSE (2X325MG) PO PRN (07:02)
[2021-04-30 07:09] LABS: HEMATOCRIT 33.3 % (42.0-52.0); HEMOGLOBIN 10.4 g/dl (13.5-17.5); MEAN CORPUSCULAR HEMOGLOBIN 29.4 pg (27.0-33.0); MEAN CORPUSCULAR HGB CONC 31.2 g/dl (32.0-36.5); MEAN CORPUSCULAR VOLUME 94.1 fl (80.0-96.0); PLATELET COUNT, AUTOMATED 225 10^3/uL (150-450); RED BLOOD COUNT 3.54 10^6/uL (4.30-6.10); WHITE BLOOD COUNT 5.6 10^3/uL (4.0-10.0)
[2021-04-30 07:19] LABS: INR 1.58; PROTHROMBIN TIME 19.3 SECONDS (12.7-14.5)
[2021-04-30 07:30] LABS: BLOOD UREA NITROGEN 13 MG/DL (7-18); CALCIUM LEVEL 9.5 MG/DL (8.8-10.2); CARBON DIOXIDE LEVEL 30 MEQ/L (21-32); CHLORIDE LEVEL 104 MEQ/L (98-107); CREATININE FOR GFR 0.53 MG/DL (0.70-1.30); GLOMERULAR FILTRATION RATE > 60.0 (>42); GLUCOSE, FASTING 102 MG/DL (70-100); POTASSIUM SERUM 3.9 MEQ/L (3.5-5.1); SODIUM LEVEL 140 MEQ/L (136-145)
[2021-04-30 07:35] LABS: CK-MB VALUE MASS < 1.0 NG/ML (<3.6); CPK CREATINE PHOSPHOKINASE 41 U/L (39-308); MB/CK RELATIVE INDEX 2.44 (< OR =4); TROPONIN I 0.06 NG/ML (< 0.10)
[2021-04-30] MEDS ORDERED: diazePAM 5MG TABLET PO ONE ×2 (09:00→19:00)
--- NOTE | 2021-04-30 09:33 | IPNPDOC ---
Text Note Date of Service The patient was seen on 04/30/21. NOTE S: Pt seen and evaluated at bedside this AM. He tells me he is having difficulty swallowing both water and pills, somewhat 2/2 pain. His nurse tells me he was unable to swallow applesauce, thin liquids, and pills last night. His nurse also tells me his left AKA stump wound is open and pt has been following wound care (Dr. Mulligan) for its management. Pt declines upcoming MRI, as per ortho, unless he is sedated during it. Reports adequate pain control throughout the night. Reports nausea, generalized pain (michael in neck, b/l shoulders, back). Denies chest pain, palpitations, SOB. O: GEN: laying in bed, NAD, alert and awake HEENT: NC/AT, EOMI, dry mucous membranes, nares patent CARDIO: normal heart sounds, RRR, systolic murmur, no RG PULM: CTA b/l, no WRR< no accessory muscles used ABD: normal BS, generalized abd pain w/ mild palpation (s/p TAVR), guarding, nondistended SKIN: significant bruising right neck/collarbone, b/l UE; IV in right EJV (site clean, w/out bleeding or signs of infxn); allevyn bandages over stage1 pressure ulcer x2 right scapula intact, clean; allevyn bandage over LUE skin tear intact, clean EXTREMITIES: no edema RLE, AKA LLE, limited ROM b/l UE (45degree active flexion b/l shoulders), swelling around left shoulder IMAGING: CXR (04/29) No acute pulmonary disease CTA (04/29) No CT evidence of pulmonary embolism. No infiltrate seen. Anterior dislocation of the left humeral head. Moderate to large effusion of the left glenohumeral joint with scattered periarticular calcifications. Stable chronic compression deformities of lower thoracic spine. Diffuse sclerotic density throughout the T9 vertebral body appears to represent a healing fracture at this location. Left shoulder xray (04/29) Right humeral head dislocation A/P: 76M PMH Afib on Warfarin and Plavix, s/p TAVR 2wks ago w/ new LBBB (stable) and left shoulder dislocation w/ effusion, concerning for possible tendon rupture pending MRI and possible ortho surgery. #New LBBB- stable EKG significant for progression of prior left ant fascicular block, possibly related to recent surgery RRR on examination Cardiac markers wnl; INR 1.58 On telemetry for monitoring #Possible ACS- unlikely, given hx and clinical presentation Troponin 0.04, 0.05 Cardiac markers wnl; INR 1.58 On Warfarin, Plavix #Left shoulder dislocation w/ effusion, possible tendon rupture s/p cortisone injection 04/24 Unclear acuity of dislocation - shoulder able to be reduced but does not remain in socket Obtaining notes and images from pt's 04/24 visit to [facility], pending MRI pending Ortho on consult (Dr. Braden)- pending MRI, may take pt to OR for left shoulder reduction #Chronic b/l shoulder pain s/p b/l rotator cuff tears Limited active ROM Continue home Oxycodone, Morphine PRN MRI pending Ortho on consult #Dysphagia Pt currently NPO, pending possible OR for left shoulder reduction today Swallow study eval pending #s/p left AKA, most likely recent dehiscence Site of left AKA still open. Pt follows w/ wound care No concerns or signs of infxn at this time. Wound Care on consult (Dr. Mulligan) #Afib RRR on examination On Digoxin Hold Plavix, Warfarin, pending possible upcoming surgery #CAD s/p cardiac stent x2 Hold Plavix, Warfarin, pending possible upcoming surgery #s/p renal transplant On Sirolimus, Prednisone, Azathioprine #HTN On Amlodipine, Torsemide #Neuropathy On Gabapentin, Carisoprodol #GERD On Zofran PRN #MRSA+ VIP status #DVT prophylaxis Hold Warfarin, Plavix, pending possible upcoming surgery DISPO: pending clinical improvement Activity as tolerated w/ fall risk precautions NPO, pending MRI and possible ortho surgery GME ATTESTATION My faculty preceptor for this patient encounter was physically present during the encounter and was fully available. All aspects of the patient interview, examination, medical decision making process, and medical care plan development were reviewed and approved by the faculty preceptor. The faculty preceptor is aware and concurs with the plan as stated in the body of this note and will attest to such by his/her cosignature. ATTENDING NOTE I personally examined the patient and his studies with the resident team. I agree with the above plan with the following additions: 1. MRI is still pending and per scheduling will not be getting done until after 6.30pm to prioritize outpatient MRI appointments. Orthopedics at this time, has decided to take him to the OR instead and so he is NPO. VS,Fishbone, I+O VS, Fishbone, I+O Laboratory Tests 04/29/21 10:22 04/30/21 05:58 Vital Signs Date Time Temp Pulse Resp B/P (MAP) Pulse Ox O2 Delivery O2 Flow Rate FiO2 04/30/21 06:00 98.2 58 17 135/79 (97) 95 Room Air I&O- Last 24 Hours up to 6 AM 04/30/21 06:00 Intake Total 150 ml Output Total 825 ml Balance -675 ml Brenda Figueroa DO Apr 30, 2021 09:33 MANNY HERRERA MD Apr 30, 2021 11:21
[2021-04-30] MEDS: VITAMIN B COMPLEX/VIT C CAP PO SCH (09:55)
[2021-04-30] MEDS: SIROLIMUS 1 MG TAB (RAPAMUNE) PO SCH (09:55)
[2021-04-30] MEDS: CINACALCET 30 MG TAB (SENSIPAR) PO SCH (09:55)
[2021-04-30] MEDS: K-PHOS ORIGINAL (POT.ACID PHOSPHATE) 500MG TAB PO SCH (09:55)
[2021-04-30] MEDS: GABAPENTIN 300 MG CAP PO SCH ×3 (09:56→20:36)
[2021-04-30] MEDS: ONDANSETRON 4 MG TAB PO PRN ×2 (09:56→18:10)
[2021-04-30] MEDS: DIGOXIN 0.125 MG TAB PO SCH (09:56)
[2021-04-30] MEDS: LACTOBACILLUS ACIDOPHILUS CAP (BACID) PO SCH ×4 (09:56→20:37)
[2021-04-30] MEDS: CLOPIDOGREL 75 MG TAB PO SCH (09:56)
[2021-04-30] MEDS: predniSONE 5 MG TAB PO SCH (09:56)
[2021-04-30] MEDS: MORPHINE 15 MG SA TAB PO SCH (09:57)
--- NOTE | 2021-04-30 12:23 | CR ---
CONSULTATION DATE: 04/30/2021 REFERRING PHYSICIAN: MANNY HERRERA MD REASON FOR CONSULTATION: To assist in the management of kidney transplant and multiple chronic medical problems. HISTORY OF PRESENT ILLNESS: Mr. Kwon is a 76-year-old gentleman with multiple chronic medical problems including endstage renal disease, status post kidney transplant, history of severe aortic stenosis with recent TAVR, history of atrial fibrillation on chronic anticoagulation, history of peripheral vascular disease status post left below the knee amputation, history of chronic degenerative joint disease and lumbar disc disease status post multiple procedures on his back. The patient was admitted to [facility] last evening due to severe sudden pain and swelling in his left shoulder. He was found to have a dislocation and his shoulder was reduced in the Emergency Room, however dislocated right away. Prior to this, patient has a history of pain in his right side of neck and right shoulder since he had his aortic valve procedure. He feels that he was positioned or moved in a way that hurt his right shoulder and neck. His kidney transplant has been functioning well and volume status has been reasonably well-compensated recently. He has been on chronic narcotic therapy due to severe back and generalized joint pain. PAST MEDICAL HISTORY: 1. Endstage renal disease secondary to IgA nephropathy, status post kidney transplant in 2006. 2. Hypertension. 3. Coronary artery disease, status post coronary angioplasty and stent placement. 4. History of aortic valve disease, status post TAVR. 5. History of peripheral vascular disease, status post left below the knee amputation. 6. History of secondary hyperparathyroidism. 7. History of anxiety. 8. History of diastolic congestive heart failure. 9. History of hypomagnesemia. 10.History of hypokalemia. PAST SURGICAL HISTORY: 1. Multiple surgeries for AV fistulas and AV grafts. 2. History of kidney transplant in 2006. 3. History of multiple surgeries for his back. 4. History of multiple hernia repairs. 5. History of left below the knee amputation. 6. History of kidney stones, status post nephrostomy tube placement and removal. 7. Skin cancer removal. MEDICATIONS: His home medications include prednisone 5 mg daily, Rapamune 4 mg daily, magnesium gluconate 500 mg six tablets daily, multivitamin one tablet daily, K-Phos 500 mg daily, Digoxin 0.125 mg daily, Plavix 75 mg daily, Sensipar 30 mg three times a week, Imuran 100 mg daily, Amlodipine 10 mg daily, Oxycodone 10 mg every 6 hours p.r.n. pain, Torsemide 20 mg at bedtime, potassium chloride 20 mEq daily, Atarax 25 mg two tablets at bedtime as needed for insomnia, Gabapentin 600 mg t.i.d., amiloride 5 mg daily, Zofran as needed for nausea, Soma 350 mg b.i.d. p.r.n. for back spasm and coumadin 3 mg daily. ALLERGIES: Patient has intolerance or allergy to multiple medications which are numerated in his chart and include quinolones, Amoxicillin, Cefuroxime, Codeine, Doxycycline, Lorazepam, Oxybutynin, Tamsulosin and Tizanidine. PERSONAL AND SOCIAL HISTORY: Patient is and lives with his . He does not smoke or drink. He has no history of drug use. FAMILY HISTORY: Noncontributory. REVIEW OF SYSTEMS: Patient has been feeling poorly, particularly since his aortic valve replacement, however even prior to that he was not doing quite well. He had been admitted to the hospital multiple times with various issues. Since his left below the knee surgery he has been doing poorly and I have discussed with him about considering Hospice care, however he has declined this so far. Patient denies any fever or chills. He denies any falls recently. Ears, nose and throat are unremarkable. Cardiovascular system is significant for congestive heart failure and recent history of TAVR. Respiratory system is negative for cough or hemoptysis. GI system is negative for vomiting or diarrhea. He reports constipation. : Significant for a history of kidney stones and at this point he denies any dysuria or hematuria. He did have a nephrostomy for a while which has been removed. Musculoskeletal system: Significant for chronic back pain due to degenerative disc disease and multiple procedures done in the past. He has generalized chronic degenerative arthritis. Neurological system is significant for peripheral neuropathy. There is no known history of stroke. Hematological system is significant for chronic anticoagulation due to atrial fibrillation. Musculoskeletal system is also significant for left below the knee amputation. Psychosocial system: Significant for anxiety. He also has chronic insomnia. PHYSICAL EXAMINATION: GENERAL: Patient is sitting in the bed with head elevated at about 60 degrees. Temperature 98.2 degrees Fahrenheit, heart rate 84 per minute and respiratory rate 20 per minute. Blood pressure is 132/79 mmHg and oxygen saturation 99% on room air. HEENT: Head is traumatic. He looks chronically wasted and emaciated. SKIN: He has obvious swelling on his left shoulder and large areas of ecchymosis on his chest and all over his body. HEART: Regular S1 and S2. LUNGS: Clear to auscultation. ABDOMEN: Soft and nontender. Bowel sounds are normal. EXTREMITIES: Without any cyanosis or clubbing. He has chronic ecchymosis on his upper limbs. Left shoulder is quite swollen and disfigured. He has a left below the knee amputation. NEUROLOGIC: He is at his baseline mentation without any focal neurological deficit. LABORATORY DATA: Today's labs showed a WBC count of 5.6, hemoglobin 10.4 and hematocrit 33.3, platelets are 225,000. Sodium is 140, potassium is 3.9, chloride 104, CO2 30, BUN 13 and creatinine 0.53, glucose is 112, calcium 9.5. PROBLEMS: 1. Endstage renal disease, status post kidney transplant. Transplant kidney has been functioning very well and the patient should continue with his chronic immunosuppression including prednisone, Rapamune and Azathioprine. 2. Congestive heart failure, his volume status seems reasonably well compensated and he should continue with torsemide 20 mg daily. 3. Hypertension, blood pressure seems well-controlled despite significant pain. Chronic antihypertensive medication should be continued. 4. Left shoulder dislocation, patient reports he is scheduled for an MRI today. He has a history of long-term steroid use following his kidney transplant. Unfortunately, all his tissues are very friable and he remains at high risk for complications. 5. Atrial fibrillation, ventricular rate is well-controlled at present and I will recommend to continue with chronic anticoagulation unless his anticoagulation needs to be held for a procedure. Thank you for involving me in the care of Mr. Kwon. I will follow him along with you.
[2021-04-30 14:00] VITALS: BP 128/76
--- NOTE | 2021-04-30 15:30 | IPNPDOC ---
Text Note Date of Service The patient was seen on 04/30/21. NOTE Post admission day 1 for left shoulder dislocation of unknown chronicity as well as chest pain The patient did not get his MRI last evening as he refused the MRI without and Ativan ordered for sedation. This was not ordered. I did speak to him this morning about a closed reduction under conscious sedation in the operating room. I did explain that there is a high risk associated with an irreducible shoulder or loss of reduction at a later time. There are also issues associated with periprosthetic fracture or neurovascular injury etc. associated with a closed reduction. He has signed consent for this. He was n.p.o. at approximately 8 PM last evening but definitely the nursing staff reported that he did not have anything to eat after midnight aside from sips with medication etc. He has signed consent and would like to try the closed reduction. I did receive some documentation from [facility] orth[facility]. The patient has not had any x-ray imaging of his shoulders since before his heart valve replacement procedure in early March. The most that was commented about his visit on Tuesday which was actually related to his back was that he was known to have bilateral shoulder effusions and fullness. He did not receive cortisone injections on Tuesday as he had stated nor did he receive any x-ray imaging of his shoulders. Furthermore, I spoke with his daughter at his request. The consensus appears to be that his pain started after his procedure for his heart valve replacement as he had a lot of swelling and bruising around his chest and shoulders at the time. In addition, the patient cannot report actually experiencing the shoulder dislocation. It is possible that the dislocation has been chronic in nature of at least 3 to 4 weeks. In any case it is either chronic or subacute dislocation and both the patient and his daughter who I spoke to are aware that there is a good chance that a reduction if achievable may not remain reduced because of soft tissue scarring muscular contractures etc. There is also the possibility that there are structures within the shoulder that would normally keep the humeral head reduced to the glenoid which could be damaged and not capable of holding the humeral head in position. On review of his chart from [facility] orthopedic group, they are aware of his bilateral rotator cuff tears and other shoulder injuries and have already deemed him not medically fit for arthroscopic reconstructions therefore he is definitely not a candidate for an open procedure such as an open reduction and reconstruction or reverse total shoulder arthroplasty or otherwise. The patient is aware of this. At the end of the discussion, the patient will be evaluated preoperatively by anesthesia to determine if he is a candidate for conscious sedation and he would like to move forward with the closed reduction attempt. The patient has signed consent for the closed reduction of the left shoulder. VS,Fishbone, I+O VS, Fishbone, I+O Laboratory Tests 04/30/21 05:58 Vital Signs Date Time Temp Pulse Resp B/P (MAP) Pulse Ox O2 Delivery O2 Flow Rate FiO2 04/30/21 14:00 98.1 85 18 128/76 (93) 97 Room Air I&O- Last 24 Hours up to 6 AM 04/30/21 05:59 Intake Total 150 ml Output Total 825 ml Balance -675 ml ASHLEY SPRINGER MD Apr 30, 2021 15:30
[2021-04-30 16:03] LABS: CK-MB VALUE MASS < 1.0 NG/ML (<3.6); CPK CREATINE PHOSPHOKINASE 36 U/L (39-308); MB/CK RELATIVE INDEX 2.78 (< OR =4); TROPONIN I 0.04 NG/ML (< 0.10)
--- NOTE | 2021-04-30 17:15 | IPNPDOC ---
Text Note Date of Service The patient was seen on 04/30/21. NOTE POST Admission Day 1 Pt was taken down to the OR for CR of Left shoulder dislocation. Patient was assessed by anesthesia and concern for SOB was raised. Would like ECHO prior to any sedation or otherwise. Updated patient who was understandably upset. He stated that he did not want any procedures done unless it was done tonight. Explained that the risk of sedation outweighed the benefit of the procedure, particularly since the patient has had a dislocation for at least 1 week, possibly since his TAVR procedure over 3 weeks ago. I did reiterate that there is a high likelihood of the shoulder being irreducible given the chronicity and possible injuries to his left shoulder. The patient is agreeable to continuing with the MRI of the shoulder. This may help determine if an attempt at a closed reduction would be possible, if injuries to the structural shoulder would prevent a stable reduction. At this point he is not a candidate for an open procedure. He is not a candidate for sedation for a closed procedure. I did explain that he may have a chronic irreducible shoulder. I spoke with nursing to ensure that the patient is still on track for the MRI shoulder. He did have valium ordered, as he cannot have ativan, by the hospitalist service. An echo was also confirmed to be ordered. I spoke to the patient's Daughter, Fany, and updated her on the plan, at the patient's request. Plan: Follow up on MRI shoulder to determine if additional attempt at CR is possible. 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 VS,Fishbone, I+O VS, Fishbone, I+O Laboratory Tests 04/30/21 05:58 Vital Signs Date Time Temp Pulse Resp B/P (MAP) Pulse Ox O2 Delivery O2 Flow Rate FiO2 04/30/21 14:00 98.1 85 18 128/76 (93) 97 Room Air I&O- Last 24 Hours up to 6 AM 04/30/21 06:00 Intake Total 150 ml Output Total 825 ml Balance -675 ml ASHLEY SPRINGER MD Apr 30, 2021 17:15
[2021-04-30] MEDS: WARFARIN SOD 3MG TAB PO SCH (18:10)
[2021-04-30] MEDS: carisoprodoL 350 MG TAB PO PRN (18:10)
[2021-04-30] MEDS: TORSEMIDE 20 MG TAB PO SCH (20:36)
[2021-04-30] MEDS: POTASSIUM CHLORIDE 10 MEQ SR TABLET PO SCH (20:37)
[2021-04-30] MEDS: aMILoride 5 MG TAB PO SCH (20:40)
[2021-04-30] MEDS: hydrOXYzine 25 MG TAB PO SCH (21:00)
[2021-04-30 22:00] VITALS: BP 129/76
--- NOTE | 2021-04-30 23:57 | REPVR ---
PROCEDURE INFORMATION: Exam: MR Left Upper Extremity Joint Without Contrast; Shoulder Exam date and time: 04/30/2021 11:18 PM Age: 76 years old Clinical indication: Injury or trauma; Left; Injury date: 04/28/2021; Injury details: PT states unknown injury causing shoulder dislocation; Additional info: L subacute dislocation, irreducible - mri without contrast TECHNIQUE: Imaging protocol: MR of the Left upper extremity without contrast. Exam focused on the shoulder. COMPARISON: CR Shoulder, complete LEFT 04/29/2021 2:00 PM FINDINGS: Bones and cartilage: There is severe patient motion during this examination making imaging very limited. Perhaps repeating the scan with sedation could be considered. Joint spaces: There is a massive left joint effusion with severe synovial thickening and nodularity. There is a large area of erosive change of the glenoid. Considerations would include rheumatoid arthritis, septic arthritis, PVNS, lyme disease. There is fluid between the humeral head and acromion most consistent with complete severe rotator cuff tear. I suspect and enlarged biceps tendon is displaced medially from the bicipital groove. IMPRESSION: 1. Severe motion artifact and suggest repeating the scan with the patient sedated. 2. Massive left joint effusion with synovial thickening and nodularity. 3. Considerations include rheumatoid arthritis, septic arthritis, PVNS and Lyme disease. 4. Complete rotator cuff tear with fluid between the humeral head and acromion. Suspect severe medial displacement of a thickened biceps tendon. Electronically signed by: Ancelmo Collado On 04/30/2021 23:57:19 PM
[2021-05-01] MEDS: oxyCODONE 5MG TAB PO PRN ×3 (00:22→13:01)
[2021-05-01] MEDS: ACETAMINOPHEN TAB 650MG DOSE (2X325MG) PO PRN ×2 (05:30→17:13)
[2021-05-01 06:54] LABS: HEMATOCRIT 35.7 % (42.0-52.0); HEMOGLOBIN 11.1 g/dl (13.5-17.5); MEAN CORPUSCULAR HEMOGLOBIN 29.9 pg (27.0-33.0); MEAN CORPUSCULAR HGB CONC 31.1 g/dl (32.0-36.5); MEAN CORPUSCULAR VOLUME 96.2 fl (80.0-96.0); PLATELET COUNT, AUTOMATED 190 10^3/uL (150-450); RED BLOOD COUNT 3.71 10^6/uL (4.30-6.10); WHITE BLOOD COUNT 6.6 10^3/uL (4.0-10.0)
[2021-05-01 07:09] LABS: INR 1.8; PROTHROMBIN TIME 21.3 SECONDS (12.7-14.5)
[2021-05-01 07:15] LABS: BLOOD UREA NITROGEN 17 MG/DL (7-18); CALCIUM LEVEL 9.4 MG/DL (8.8-10.2); CARBON DIOXIDE LEVEL 27 MEQ/L (21-32); CHLORIDE LEVEL 105 MEQ/L (98-107); CREATININE FOR GFR 0.65 MG/DL (0.70-1.30); GLOMERULAR FILTRATION RATE > 60.0 (>42); GLUCOSE, FASTING 138 MG/DL (70-100); POTASSIUM SERUM 4.1 MEQ/L (3.5-5.1); SODIUM LEVEL 139 MEQ/L (136-145)
[2021-05-01] MEDS: LACTOBACILLUS ACIDOPHILUS CAP (BACID) PO SCH ×4 (08:00→20:10)
[2021-05-01] MEDS: GABAPENTIN 300 MG CAP PO SCH ×3 (10:39→20:08)
[2021-05-01] MEDS: CLOPIDOGREL 75 MG TAB PO SCH (10:39)
[2021-05-01] MEDS: predniSONE 5 MG TAB PO SCH (10:39)
[2021-05-01] MEDS: K-PHOS ORIGINAL (POT.ACID PHOSPHATE) 500MG TAB PO SCH (10:40)
[2021-05-01] MEDS: MORPHINE 15 MG SA TAB PO SCH ×2 (10:40→20:09)
[2021-05-01] MEDS: SIROLIMUS 1 MG TAB (RAPAMUNE) PO SCH (10:41)
[2021-05-01] MEDS: DIGOXIN 0.125 MG TAB PO SCH (10:41)
[2021-05-01] MEDS: VITAMIN B COMPLEX/VIT C CAP PO SCH (10:42)
[2021-05-01] MEDS ORDERED: SENNA 8.6 MG TAB (SENOKOT) PO PRN (10:45)
--- NOTE | 2021-05-01 11:16 | IPNPDOC ---
Text Note Date of Service The patient was seen on 05/01/21. NOTE Postadmission day 2 The patient was seen this morning to discuss the results of his MRI. Of note, yesterday the patient was taken to the operating room for an attempt at closed reduction under conscious sedation. After evaluation by the anesthesiologist, it was decided that he should have an echo performed before any sort of sedation due to his multiple medical comorbidities. The procedure was canceled. The decision was made to go ahead with the MRI of his left shoulder to determine if there was a structural issue within the shoulder that was preventing the reduction maneuvers performed in the emergency room from a remaining reduced. The patient was sleeping when I entered the room this morning. Interestingly enough, the patient's left shoulder fullness and dislocation did not appear apparent when he was sleeping. Upon awakening, the shoulder appeared to sub luxate or dislocate anteriorly and the prominence was present again. An MRI was independently ordered and reviewed by myself. The MRI demonstrated significant artifact, despite the fact that the patient reportedly did have some oral medication sedation prior to the procedure. This MRI demonstrated evidence of a massive left joint effusion with synovial thickening and nodularity as well as a complete rotator cuff tear with fluid between the humeral head and acromion and displacement of a thickened biceps tendon. There is also noted to be a large area of erosive change to the glenoid. The MRI evidence, including the inflamed synovium and massive effusion support the idea that this is a dislocation more chronic in nature. I suspect that the erosive glenoid wear is the reason that the patient's relocation of the shoulder in the emergency room did not remain reduced. I believe this is supported by the fact that when the patient was asleep the shoulder deformity was not apparent and when he was awakened, the humeral head immediately subluxated forward with attempted motion of the arm. Overall, I believe the patient has had a chronic dislocation of the shoulder with associated erosion of the glenoid which is preventing the humeral head from remaining reduced after the emergency room attempts at reduction. I do not believe that the left shoulder dislocation will remain and located without any surgical intervention for which the patient is not a candidate. This is based on his multiple medical comorbidities and his poor wound healing capacity, and opinion which is supported by the office visit notes of [facility] orthopedic group where they had declined surgical intervention as well for his known rotator cuff injuries. I had reviewed the patient's case on the day of admission with the [facility] upper extremity orthopedic surgeon, Dr. Bradshaw. He has stated in these situations the nonreducible shoulder was typically left dislocated until the patient had enough pain and symptoms for consideration of a reverse total shoulder arthroplasty. Unfortunately this is not an option for the patient. Given the additional information on MRI I do not believe that an attempted closed reduction under conscious sedation would be any more successful than the previous attempts and failure of the reduced shoulder to stay enlocated. I have discussed this with the hospitalist service. They will concentrate on pain management. The option to follow-up in the [facility] orthopedic clinic is available however, the patient has been well-established with [facility]opedic group for his shoulder, neck and back issues and I would recommend follow-up with them. At this time there is no intervention or otherwise that I can suggest. VS,Fishbone, I+O VS, Fishbone, I+O Laboratory Tests 05/01/21 06:13 Vital Signs Date Time Temp Pulse Resp B/P (MAP) Pulse Ox O2 Delivery O2 Flow Rate FiO2 05/01/21 10:41 86 05/01/21 10:41 126/82 05/01/21 10:40 14 05/01/21 06:31 5 Room Air 04/30/21 22:00 98.1 I&O- Last 24 Hours up to 6 AM 05/01/21 05:59 Intake Total 300 ml Output Total 1100 ml Balance -800 ml ASHLEY SPRINGER MD May 01, 2021 11:16
--- NOTE | 2021-05-01 11:28 | ECGEPIP ---
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 Order Number: [id number] Reading MD: Brandee Orozco Measurements Intervals [place] Rate: 87 P: [place]: QRS: -70 QRSD: 144 T: 113 QT: 400 QTc: 481 Interpretive Statements Atrial fibrillation Left axis deviation Left bundle branch block RATE FASTER C/W 04/29/21 Electronically Signed on 05-01-2021 11:28:30 EDT by Brandee Orozco
--- NOTE | 2021-05-01 11:43 | IPNPDOC ---
Text Note Date of Service The patient was seen on 05/01/21. NOTE S: Pt seen and evaluated at bedside this AM. Tentative plan to take him to OR 04/30 for left shoulder reduction, but pt complained of SOB and anesthesia requested Echo to be performed prior to sedation, given recent TAVR. While echo report pending, pt instead underwent left shoulder MRI to evaluate chronicity of left shoulder dislocation and if reduction by ortho would be therapeutic. Pt tells me he worked w/ PT this AM and was told he would be in the hospital 5 more days for further sessions. He tells me he was seen by Dr. Alcantar, w/ regards to hx renal transplant, and was told he would be in the hospital 2-3 more days. When discussing his potential d/c home today, pt became very agitated and frustrated and told me he "could not go home like this." Reports poorly cont rolled pain (michael in neck, b/l shoulders, back), limited ROM, unimproved weakness, and inadequate help at home. Reports constipation, difficulty urinating. Denies chest pain, palpitations, SOB. O: GEN: sitting in wheelchair, agitated and frustrated during conversation regarding potential d/c, alert and awake HEENT: NC/AT, EOMI, dry mucous membranes, nares patent CARDIO: normal heart sounds, RRR, systolic murmur, no RG PULM: CTA b/l, no WRR, no accessory muscles used ABD: normal BS, generalized abd pain w/ mild palpation (s/p TAVR), guarding, nondistended SKIN: significant bruising right neck/collarbone, b/l UE; IV in right EJV (site clean, w/out bleeding or signs of infxn); allevyn bandages over stage1 pressure ulcer x2 right scapula intact, clean; allevyn bandage over LUE skin tear intact, clean EXTREMITIES: no edema RLE, AKA LLE, limited ROM b/l UE (45degree active flexion b/l shoulders), swelling around left shoulder IMAGING: CXR (04/29) No acute pulmonary disease CTA (04/29) No CT evidence of pulmonary embolism. No infiltrate seen. Anterior dislocation of the left humeral head. Moderate to large effusion of the left glenohumeral joint with scattered periarticular calcifications. Stable chronic compression deformities of lower thoracic spine. Diffuse sclerotic density throughout the T9 vertebral body appears to represent a h ealing fracture at this location. Left shoulder xray (04/29) Right humeral head dislocation Echocardiogram (04/30) Pending report MRI Left shoulder (04/30) 1. Severe motion artifact and suggest repeating the scan with the patient sedated. 2. Massive left joint effusion with synovial thickening and nodularity. 3. Considerations include rheumatoid arthritis, septic arthritis, PVNS and Lyme disease. 4. Complete rotator cuff tear with fluid between the humeral head and acromion. Suspect severe medial displacement of a thickened biceps tendon. A/P: 76M PMH Afib on Warfarin and Plavix, s/p TAVR 2wks ago w/ new LBBB (stable) and worsening b/l shoulder pain w/ chronic left shoulder dislocation and effusion. Pt medically cleared for d/c, pending [facility] consult and PFS recommendations for home w/ services. #New LBBB- stable EKG significant for progression of prior left ant fascicular block, possibly r elated to recent surgery RRR on examination Cardiac markers wnl; INR 1.58 On telemetry for monitoring #Possible ACS- unlikely, given hx and clinical presentation Troponin 0.04, 0.05 Cardiac markers wnl; INR 1.58 On Warfarin, Plavix #Left shoulder dislocation w/ effusion, possible tendon rupture s/p cortisone injection 04/24- stable MRI noted above Notes and images from pt's 04/24 visit to [facility], pending Most likely chronic dislocation, given MRI findings and shoulder's labile reduction and dislocation Echo normal, report pending As per, ortho, pt not candidate for left shoulder reduction in OR given chronicity of dislocation. Advise pt f/u w/ [facility] upon d/c On Morphine BID, Oxycodone 10mg On Senokot and bowel regimen PT/OT recommendations appreciated Ortho on consult (Dr. Braden) #Chronic b/l shoulder pain s/p b/l rotator cuff tears Limited active ROM Continue home Oxycodone, Morphine PRN MRI pending Ortho on consult #Dysphagia- RESOLVED Pt's difficulty swallow on admission most likely 2/2 severe neck pain which he acquired following central line placement for TAVR 2wks ago Denies continued difficulty swallowing liquids and solids #s/p left AKA, most likely recent dehiscence Site of left AKA still open. Pt follows w/ wound care No concerns or signs of infxn at this time. Wound Care on consult (Dr. Mulligan) #Afib RRR on examination On Digoxin Hold Plavix, Warfarin, pending possible upcoming surgery #CAD s/p cardiac stent x2 Hold Plavix, Warfarin, pending possible upcoming surgery #s/p renal transplant On Sirolimus, Prednisone, Azathioprine #HTN On Amlodipine, Torsemide #Neuropathy On Gabapentin, Carisoprodol #GERD On Zofran PRN #MRSA+ VIP status #DVT prophylaxis Hold Warfarin, Plavix, pending possible upcoming surgery DISPO: home w/ services. Pt and family counseled on pt's medical status and pending disposition home w/ services vs rehab. Pt will most likely be d/c home w/ services tomorrow. Activity as tolerated w/ fall risk precautions Regular diet GME ATTESTATION My faculty preceptor for this patient encounter was physically present during the encounter and was fully available. All aspects of the patient interview, examination, medical decision making process, and medical care plan development were reviewed and approved by the faculty preceptor. The faculty preceptor is aware and concurs with the plan as stated in the body of this note and will attest to such by his/her cosignature. ATTENDING NOTE I personally examined the patient and his studies with the resident team. I agree with the above summary and plan. I spoke with his daughter at length today about our plan going forward. Briefly, we have established that he did not have an ACS event, we consulted orthopedics and MRI showed significant pathology that appears at least subacute and will be followed by his baseline orthopedics group with no acute surgical interventions at this time. On speaking with daughter, it appears he has significant pain at baseline especially nocturnally and I so I have increased his morphine ER from daily to BID dosing while continued the PRN oxycodone. My goal at this time will be adequate pain control, PT/OT with goal for home with services and making sure the recent imaging is sent over to his orthopedist with close orthopedics follow up. VS,Fishbone, I+O VS, Fishbone, I+O Laboratory Tests 05/01/21 06:13 Vital Signs Date Time Temp Pulse Resp B/P (MAP) Pulse Ox O2 Delivery O2 Flow Rate FiO2 8/6/21 10:41 86 05/01/21 10:41 126/82 05/01/21 10:40 14 05/01/21 06:31 5 Room Air 04/30/21 22:00 98.1 I&O- Last 24 Hours up to 6 AM 05/01/21 06:00 Intake Total 300 ml Output Total 1100 ml Balance -800 ml Brenda Figueroa DO May 01, 2021 11:43 MANNY HERRERA MD May 02, 2021 11:32
[2021-05-01 14:00] VITALS: BP 126/72
--- NOTE | 2021-05-01 15:07 | CR ---
ADVANCED WOUND CARE CONSULTATION DATE: 05/01/2021 CONSULTATION REQUESTED BY: Dr. Figueroa REASON FOR CONSULTATION: Left above-knee amputation site wound. Wound care Telemedicine provides a visual assessment of a wound without the benefit of a physical examination. It can assist in establishing a diagnosis and etiology. This allows for an initial treatment plan. As wounds often change, it may be necessary to modify the original care. Our recommendation is periodic wound reassessment to monitor wound treatment. Failure to comply may result in nonhealing of the wound, possible complications and/or a poor outcome. The recommendations given will serve as treatment options. As I will not be following this patient, this care plan will require the attending physician to give and sign the orders. Upon discharge, the outpatient followup can be arranged at our wound care center for further treatment. A 76-year-old male admitted with chest pain and a recent dislocation of his left shoulder. In January of 2021, the patient underwent a left above-knee amputation for ischemic changes in his foot. This was performed at [facility] by Dr. Ortez. It is unclear if the wound closed and then dehisced or never completely closed. In any event, there is a wound in the central portion of the suture line measuring 4.0 cm x 2.6 cm with a wound depth of 2.5 cm. The wound base shows fibrin slough and superficial necrotic subcutaneous tissue. The drainage is minimal, serous and without odor. No erythema, maceration or ischemic change. It is difficult to ascertain the wound base, but according to the nurse present, there is no palpable bone noted. TREATMENT RECOMMENDATIONS: Clean the wound with Vashe wound cleanser. If possible, obtain a wound Lolly, which will allow for wound debridement at bedside. This can also be soaked in the Vashe to facilitate mechanical debridement. Vashe should be used for 10 minutes by soaking a 4 x 4 gauze and inserting it into the wound. Next, Hydrofera Blue Classic should be cut to the appropriate size, moistened with saline, and inserted gently into the wound. This does not have to be forcibly packed. Skin prep is placed around the periwound and a foam dressing is used as a cover dressing. Kyle bandages are not preferable and a TubiGrip stocking should be used in its place. Dressing changes should be performed every other day. Patient's diet should be supplemented with Ensure and/or Romulo. Patient's GFR is within normal limits. A CT angiogram to evaluate the distal aorta And bilateral run off should be obtained prior to discharge. Above-knee amputations should usually heal without difficulty, as the arterial flow and collaterals are excellent above the knee. The CT angiogram will rule out any iliac and/or distal aorta disease which may have compromised wound healing ability. When seen in the clinic specific debridement can be performed to rule out any foreign body such as sutures or necrotic bone which could also compromise healing. MTDD
--- NOTE | 2021-05-01 15:25 | IPN ---
PROGRESS NOTE DATE: 05/01/2021 SUBJECTIVE: Mr. Kwon is seen this morning on his bedside. He is sitting at the edge of the bed and getting ready for physical therapy. Therapist is present in the room and they are going to get him transferred from the bed to the chair. Patient did have MRI of his left shoulder yesterday. He reports that he was told by orthopedic surgeon that surgery is not an option for him and he is also concerned about pain management. Patient has been on chronic narcotic therapy. PHYSICAL EXAMINATION: VITALS: Temperature 98 degrees Fahrenheit, heart rate 92 per minute, respiratory rate 18 per minute, blood pressure 129/70 mmHg, oxygen saturation 93% on room air. HEENT: Head is atraumatic. Neck without any JVD or thyroid enlargement. LUNGS: Showed they are swollen and has large effusion. There is ecchymosis on his chest and limbs. Lungs sound clear to auscultation. HEART: Sounds are regular. ABDOMEN: Soft and nontender. Bowel sounds are present. EXTREMITIES: Without any cyanosis or clubbing. He has chronic ecchymosis on his limbs. His left shoulder is disfigured and swollen. He has a prior below the knee amputation. NEUROLOGIC: He is at his baseline mentation. LABORATORY STUDIES: Today's labs show WBC 6.6, hemoglobin 11.1, hematocrit 35.7, platelets 190,000. Sodium 139, potassium 4.1, CO2 27, BUN 17 and creatinine 0.65. PROBLEMS: 1. Kidney transplant status: Kidney function is stable at baseline. He should continue with his chronic immunosuppressive therapy. 2. Congestive heart failure: His volume status seems reasonably well compensated and chronic diuretic should be continued. 3. Aortic stenosis: Status post aortic valve replacement. Patient has not felt well since his aortic valve replacement. Apparently he had developed pain in the right side of his neck and shoulder on the right side, which has persisted and now he has left shoulder displaced and also has rotator cuff tear. I feel that patient is not a suitable candidate in view of his multiple comorbid conditions and very friable tissues and bones. 4. Hypertension: Blood pressure seems very well controlled on current medications.
[2021-05-01] MEDS: WARFARIN SOD 3MG TAB PO SCH (17:08)
[2021-05-01] MEDS: carisoprodoL 350 MG TAB PO PRN (17:13)
[2021-05-01] MEDS ORDERED: ISOVUE-370 76% 100ML VIAL As Ordered ONE (18:33)
--- NOTE | 2021-05-01 20:04 | REPVR ---
PROCEDURE INFORMATION: Exam: CTA Angiogram of the Abdominal Aorta and Bilateral Lower Extremities (Run-off) With IV Contrast Exam date and time: 05/01/2021 6:48 PM Age: 76 years old Clinical indication: Other: Slow healing S/P aka R/O significant pvd TECHNIQUE: Imaging protocol: CT angiogram of the abdominal aorta, pelvis and bilateral lower extremities with IV iodinated contrast. 3D rendering (Not supervised by radiologist): MIP and/or 3D reconstructed images were created by the technologist. Radiation optimization: All CT scans at this facility use at least one of these dose optimization techniques: automated exposure control; mA and/or kV adjustment per patient size (includes targeted exams where dose is matched to clinical indication); or iterative reconstruction. Contrast material: ISOVUE 370; Contrast volume: 100 ml; Contrast route: INTRAVENOUS (IV); COMPARISON: CT ABD PELVIS W/O CONTRAST 05/31/2020 2:09 PM FINDINGS: Aorta: Atherosclerotic calcifications throughout the abdominal aorta. No aneurysm, dissection or occlusion. Celiac trunk and mesenteric arteries: Mild atherosclerotic changes at the origin of the celiac and superior mesenteric arteries without significant stenosis. Renal arteries: Proximal [place] renal arteries are occluded status post bilateral nephrectomies. Right iliac arteries: Moderate atherosclerotic changes in the right iliac arteries without evidence of a high-grade stenosis. No aneurysm or dissection. Right femoral/popliteal arteries: Mild atherosclerotic changes in the right common femoral artery. Moderate diffuse atherosclerotic changes in the right femoral artery resulting in moderate stenosis throughout. Moderate to severe atherosclerotic changes in the proximal right popliteal artery resulting in moderate to high-grade stenosis. Right infrapopliteal arteries: Moderate to severe atherosclerotic changes demonstrated in the posterior tibial and anterior tibial artery on the right with multiple short segment stenoses throughout. Flow demonstrated in the dorsalis pedis artery. Left iliac arteries: Moderate atherosclerotic changes in the left iliac arteries without evidence of a high-grade stenosis. No aneurysm or dissection. Left femoral/popliteal arteries: Symh-le-rveenetg atherosclerotic changes in the left common femoral artery. Moderate to severe atherosclerotic changes in the left superficial femoral artery which is occluded distally at the stump. Left infrapopliteal arteries: Peroneal artery occluded at its origin. Lungs: Bibasilar atelectasis. Heart: Cardiomegaly. Calcifications in the aortic valve and mitral valve annulus. There is moderate atherosclerotic calcification of the coronary arteries. Liver: No mass. Gallbladder and bile ducts: Unremarkable. No calcified stones. No ductal dilation. Pancreas: There is diffuse pancreatic atrophy. Spleen: Normal. No splenomegaly. Adrenals: Normal. No mass. Kidneys and ureters: Status post bilateral nephrectomies. Stable calcifications in the right renal fossa. Transplant kidney right lower quadrant. Probable 2 cm cyst in the transplanted kidney. Heterotopic calcifications in the left posterior para renal space. Stomach and bowel: There is gastric distention with retained secretions. Clinical correlation to exclude gastroparesis or gastric outlet obstruction suggested. There is increased feces throughout the colon consistent with constipation. Appendix: No evidence of appendicitis. Bladder: Unremarkable. No mass. Reproductive: Unremarkable as visualized. Intraperitoneal space: Unremarkable. No free air. No significant fluid collection. Lymph nodes: No lymphadenopathy. Bones/joints: Osteoporosis. Age-indeterminate fracture left 6th rib. Status post posterior interbody fusion of T11 through L2. Multilevel age-indeterminate compression deformities demonstrated throughout the lumbar spine. Clinical correlation to exclude acute fracture. Bilateral laminectomies at T12 and L1. Severe central spinal stenosis L2-L3, L3-L4 and L4-L5. Bulging annulus with posterior disc protrusion L5-S1. Status post [id number]-[id number]-vikp amputation on the left. Some heterotopic bone demonstrated at the transected edge of the distal left femur. Dextroscoliosis. Soft tissues: Status post ventral abdominal wall hernia repair with mesh. No recurrent hernia demonstrated. Soft tissue edema demonstrated at the distal stump on the left. Findings may indicate the presence of infection. IMPRESSION: 1. Diffuse atherosclerotic changes demonstrated in the abdominal aorta and pelvic arteries without evidence of a high-grade stenosis, dissection or aneurysm. 2. Status post rzbic-[id number] amputation on the left with moderate to severe atherosclerotic changes demonstrated in the superficial femoral artery proximally which is occluded distally at the level of the stump. [id number] atherosclerotic changes demonstrated in the right femoral artery and moderate to severe atherosclerotic changes demonstrated in the proximal right popliteal artery with moderate to high-grade stenosis. Peroneal artery occluded at its origin. Diffuse atherosclerotic changes in the anterior tibial and posterior tibial arteries with marked reduction in flow to the ankle. There is flow demonstrated in the dorsalis pedis artery. 3. Age-indeterminate fracture left 6th rib. 4. There is gastric distention with retained secretions. Clinical correlation to exclude gastroparesis or gastric outlet obstruction suggested. 5. Transplant kidney right lower quadrant. Probable 2 cm cyst in the transplanted kidney. 6. There is increased feces throughout the colon consistent with constipation. 7. There is diffuse pancreatic atrophy. 8. Some heterotopic bone demonstrated at the transected edge of the distal left femur. Soft tissue edema demonstrated at the distal stump on the left. Findings may indicate the presence of infection. Electronically signed by: Altaf Crawford On 05/01/2021 20:03:22 PM
[2021-05-01] MEDS: POTASSIUM CHLORIDE 10 MEQ SR TABLET PO SCH (20:09)
[2021-05-01] MEDS: aMILoride 5 MG TAB PO SCH (20:10)
[2021-05-01] MEDS: TORSEMIDE 20 MG TAB PO SCH (20:10)
[2021-05-01] MEDS: hydrOXYzine 25 MG TAB PO SCH (20:10)
[2021-05-01 22:00] VITALS: BP 124/79
[2021-05-02] MEDS: oxyCODONE 5MG TAB PO PRN ×3 (00:37→17:09)
[2021-05-02 06:00] VITALS: BP 152/83
[2021-05-02 06:52] LABS: HEMATOCRIT 37.3 % (42.0-52.0); HEMOGLOBIN 11.4 g/dl (13.5-17.5); MEAN CORPUSCULAR HEMOGLOBIN 29.4 pg (27.0-33.0); MEAN CORPUSCULAR HGB CONC 30.6 g/dl (32.0-36.5); MEAN CORPUSCULAR VOLUME 96.1 fl (80.0-96.0); PLATELET COUNT, AUTOMATED 201 10^3/uL (150-450); RED BLOOD COUNT 3.88 10^6/uL (4.30-6.10); WHITE BLOOD COUNT 5.9 10^3/uL (4.0-10.0)
[2021-05-02 07:03] LABS: INR 2.44; PROTHROMBIN TIME 26.9 SECONDS (12.7-14.5)
[2021-05-02 07:10] LABS: BLOOD UREA NITROGEN 17 MG/DL (7-18); CALCIUM LEVEL 9.4 MG/DL (8.8-10.2); CARBON DIOXIDE LEVEL 27 MEQ/L (21-32); CHLORIDE LEVEL 106 MEQ/L (98-107); CREATININE FOR GFR 0.68 MG/DL (0.70-1.30); GLOMERULAR FILTRATION RATE > 60.0 (>42); GLUCOSE, FASTING 135 MG/DL (70-100); POTASSIUM SERUM 3.9 MEQ/L (3.5-5.1); SODIUM LEVEL 138 MEQ/L (136-145)
[2021-05-02] MEDS: LACTOBACILLUS ACIDOPHILUS CAP (BACID) PO SCH ×4 (08:00→21:50)
[2021-05-02] MEDS: MORPHINE 15 MG SA TAB PO SCH ×2 (10:48→21:51)
[2021-05-02] MEDS: K-PHOS ORIGINAL (POT.ACID PHOSPHATE) 500MG TAB PO SCH (10:49)
[2021-05-02] MEDS: VITAMIN B COMPLEX/VIT C CAP PO SCH (10:49)
[2021-05-02] MEDS: SENNA 8.6 MG TAB (SENOKOT) PO SCH ×2 (10:49→21:51)
[2021-05-02] MEDS: GABAPENTIN 300 MG CAP PO SCH ×3 (10:49→21:51)
[2021-05-02] MEDS: SIROLIMUS 1 MG TAB (RAPAMUNE) PO SCH (10:49)
[2021-05-02 10:50] LABS: MAGNESIUM LEVEL 1.6 MG/DL (1.8-2.4); PHOSPHORUS LEVEL 2.7 MG/DL (2.5-4.9)
[2021-05-02] MEDS: CLOPIDOGREL 75 MG TAB PO SCH (10:50)
[2021-05-02] MEDS: DIGOXIN 0.125 MG TAB PO SCH (10:50)
[2021-05-02] MEDS: predniSONE 5 MG TAB PO SCH (10:50)
--- NOTE | 2021-05-02 12:27 | IPNPDOC ---
Text Note Date of Service The patient was seen on 05/02/21. NOTE S: Pt seen and evaluated at bedside this AM. Reports adequate pain management. Pt is working well w/ PT who recommends home w/ services, pending family training. Condom catheter placed and pt reports good tolerance. He tells me he wants to go home w/ catheter as it is more convenient and keeps him comfortable w/ regards to exacerbating his chronic pain. Reports constipation. Denies chest pain, n/v, poor appetite, SOB. O: GEN: sitting in bed, NAD, alert and awake HEENT: NC/AT, EOMI, moist mucous membranes, nares patent CARDIO: normal heart sounds, RRR, systolic murmur, no RG PULM: CTA b/l, no WRR, no accessory muscles used ABD: normal BS, generalized abd pain w/ mild palpation (s/p TAVR), guarding, nondistended SKIN: significant bruising right neck/collarbone, b/l UE; IV in right EJV (site clean, w/out bleeding or signs of infxn); allevyn bandages over stage1 pressure ulcer x2 right scapula intact, clean; allevyn bandage over LUE skin tear intact, clean; bandage on LLE stump intact, clean, no surrounding signs of infxn EXTREMITIES: no edema RLE, AKA LLE, limited active ROM b/l UE (45degree active flexion b/l shoulders), swelling around left shoulder IMAGING: CXR (04/29) No acute pulmonary disease CTA (04/29) No CT evidence of pulmonary embolism. No infiltrate seen. Anterior dislocation of the left humeral head. Moderate to large effusion of the left glenohumeral joint with scattered periarticular calcifications. Stable chronic compression deformities of lower thoracic spine. Diffuse sclerotic density throughout the T9 vertebral body appears to represent a healing fracture at this location. Left shoulder xray (04/29) Right humeral head dislocation Echocardiogram (04/30) Pending report MRI Left shoulder (04/30) 1. Severe motion artifact and suggest repeating the scan with the patient sedated. 2. Massive left joint effusion with synovial thickening and nodularity. 3. Considerations include rheumatoid arthritis, septic arthritis, PVNS and Lyme disease. 4. Complete rotator cuff tear with fluid between the humeral head and acromion. Suspect severe medial displacement of a thickened biceps tendon. CTA abd arteries (05/01) 1. Diffuse atherosclerotic changes demonstrated in the abdominal aorta and pelvic arteries without evidence of a high-grade stenosis, dissection or aneurysm. 2. Status post [id number] amputation on the left with moderate to severe atherosclerotic changes demonstrated in the superficial femoral artery proximally which is occluded distally at the level of the stump. [id number] atherosclerotic changes demonstrated in the right femoral artery and moderate to severe atherosclerotic changes demonstrated in the proximal right popliteal artery with moderate to high-grade stenosis. Peroneal artery occluded at its origin. Diffuse atherosclerotic changes in the anterior tibial and posterior tibial arteries with marked reduction in flow to the ankle. There is flow demonstrated in the dorsalis pedis artery. 3. Age-indeterminate fracture left 6th rib. 4. There is gastric distention with retained secretions. Clinical correlation to exclude gastroparesis or gastric outlet obstruction suggested. 5. Transplant kidney right lower quadrant. Probable 2 cm cyst in the transplanted kidney. 6. There is increased feces throughout the colon consistent with constipation. 7. There is diffuse pancreatic atrophy. 8. Some heterotopic bone demonstrated at the transected edge of the distal left femur. Soft tissue edema demonstrated at the distal stump on the left. Findings may indicate the presence of infection. A/P: 76M PMH Afib on Warfarin and Plavix, s/p TAVR 2wks ago w/ new LBBB (stable) and chronic left shoulder dislocation and effusion. Pt medically cleared for d/c home w/ services, pending PT family training. #New LBBB- stable EKG significant for progression of prior left ant fascicular block, possibly related to recent surgery RRR on examination Cardiac markers wnl; INR 1.58 On telemetry for monitoring #Possible ACS- unlikely, given hx, labs, clinical presentation Cardiac markers wnl INR 2.44 On Warfarin, Plavix #Left shoulder dislocation w/ effusion- stable MRI noted above Notes and images from pt's 04/24 visit to [facility], pending Most likely chronic dislocation, given MRI findings and shoulder's labile reduction and dislocation Echo normal, report pending As per, ortho, pt not candidate for left shoulder reduction in OR given chronicity of dislocation. Pt f/u w/ AARON Turner at [facility] 05/05 On Morphine BID, Oxycodone 10mg PT/OT on consult Ortho on consult (Dr. Braden) #Constipation On Senokot BID and bowel regimen #Chronic b/l shoulder pain s/p b/l rotator cuff tears Limited active ROM On Oxycodone 10mg, Morphine BID MRI as noted above Right shoulder xray, pending Condom catheter placed Ortho on consult #Dysphagia- RESOLVED Pt's difficulty swallow on admission most likely 2/2 severe neck pain which he acquired following central line placement for TAVR 2wks ago Denies continued difficulty swallowing liquids and solids #Poor wound healing at site left AKA (01/2021), recent dehiscence vs poor healing 2/2 PAD CTA abd arteries to w/u etiology poor wound healing as requested by Wound Care. Report noted above Site of left AKA still open. Pt follows w/ wound care No concerns or signs of infxn at this time. Wound Care on consult (Dr. Mulligan) #Afib RRR on examination On Digoxin On Plavix, Warfarin #CAD s/p cardiac stent x2 On Plavix, Warfarin #s/p renal transplant On Sirolimus, Prednisone, Azathioprine #HTN On Amlodipine, Torsemide #Neuropathy On Gabapentin, Carisoprodol #GERD On Zofran PRN #MRSA+ VIP status #DVT prophylaxis On Warfarin, Plavix DISPO: transfer to ALC status, pending home w/ services 05/04 Activity as tolerated w/ fall risk precautions Regular diet GME ATTESTATION My faculty preceptor for this patient encounter was physically present during the encounter and was fully available. All aspects of the patient interview, examination, medical decision making process, and medical care plan development were reviewed and approved by the faculty preceptor. The faculty preceptor is aware and concurs with the plan as stated in the body of this note and will attest to such by his/her cosignature. ATTENDING NOTE I personally examined the patient and discussed his findings and management with the resident team. I agree with the above noted findings and management. I also was present during his PT evaluation and ultimately after discussion with family and PT, it was decided that it would be best if family was trained on proper safe transfer of the patient as he is wheechair bound with bilateral severe shoulder disease and his participation is very precarious and family will be present for training on 05/04. He will therefore remain in the hospital until then, after which he will be discharged home with family with home PT/OT and services with plan for close orthopedics follow up on 05/05 as a walk in per his orthopedics PA provider who is on clinic call on 05/05. For now he has been made ALC until family training can be achieved for safe discharge planning. VS,Fishbone, I+O VS, Fishbone, I+O Laboratory Tests 05/02/21 06:25 Vital Signs Date Time Temp Pulse Resp B/P (MAP) Pulse Ox O2 Delivery O2 Flow Rate FiO2 05/02/21 11:02 12 05/02/21 10:50 94 05/02/21 10:50 138/82 05/02/21 06:00 98.1 97 Room Air I&O- Last 24 Hours up to 6 AM 05/02/21 06:00 Intake Total 870 ml Output Total 1025 ml Balance -155 ml Brenda Figueroa DO May 02, 2021 12:26 MANNY HERRERA MD May 03, 2021 09:46
--- NOTE | 2021-05-02 13:08 | REP ---
INDICATION: chronic right shoulder pain. COMPARISON: None. TECHNIQUE: There are four views. FINDINGS: There is diffuse demineralization. The acromioclavicular joint demonstrates an osteophyte along the inferior margin of the distal clavicle. There is no narrowing of the subacromial space. The glenohumeral joint is grossly unremarkable on the views presented. There are no calcifications. No fracture or dislocation. There are stabilization rods in the thoracic spine and cervical spine. There is opaque material within 2 vertebral bodies, likely T1 and T2 suggestive of kyphoplasties. IMPRESSION: Demineralization. Inferior osteophyte of the distal clavicle. Stabilization rods in the cervical spine and thoracic spine. Kyphoplasties at 2 levels, likely T1-T2. <Electronically signed by Fantasma Clements > 05/02/21 [id number]
[2021-05-02 14:00] VITALS: BP 136/85
[2021-05-02] MEDS: WARFARIN SOD 3MG TAB PO SCH (17:03)
--- NOTE | 2021-05-02 20:28 | IPN ---
NEPHROLOGY PROGRESS NOTE DATE: 05/02/2021 SUBJECTIVE: The patient was seen and examined at the bedside today morning. He is laying in the bed. He reports difficulty with mobility because of decreased range of movement of the right shoulder and dislocation of the left shoulder. Otherwise he is hemodynamically stable and his renal function is also stable at the baseline. OBJECTIVE: VITAL SIGNS: Temperature is 97.3 degrees Fahrenheit, blood pressure 136/85, pulse is 76, respiratory rate of 16, saturating 95% on room air. INTAKE AND OUTPUT: Urine output recorded as 750 mL. Weight in the bed scale is 56.2 kg. PHYSICAL EXAMINATION: GENERAL APPEARANCE: The patient is awake, alert, oriented x3. HEAD AND NECK: Extraocular muscles intact. Pupils are equally round and reactive to light. Mucous membranes are moist. Neck is supple. There is no jugular venous distention. CARDIOVASCULAR: S1, S2, regular rate. EXTREMITIES: No edema of the extremities. RESPIRATORY: Chest is clear to auscultation bilaterally. Bilaterally currently no rales or rhonchi. ABDOMEN: Soft, positive bowel sounds, nontender. He has an old surgical scar. MUSCULOSKELETAL: Left above the knee amputation is noted. No edema of the lower extremities. 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 The patient has decreased range of movement of the shoulders because of problems with his shoulder joints. LAB REVIEW: CBC showed a WBC count of 5.9, hemoglobin 1.14, platelet count 201. BMP showed sodium of 138, potassium 3.9, chloride 106, bicarbonate 27, BUN 17, creatinine is 0.6. Calcium 9.4, phosphorous is 2.7, magnesium 1.6. IMAGING: A shoulder x-ray was done which showed inferior osteophyte of the distal clavicle, stabilization rods in the cervical spine and thoracic spine. Kyphoplasties at 2 levels, and this was the x-ray of the right shoulder. CURRENT INPATIENT MEDICATIONS: The patient's medications were all reviewed by myself. He continues to be on Sirolimus, Prednisone and Azathioprine for his renal transplant. ASSESSMENT AND PLAN: 1. 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 Continue current immunosuppressive therapy. 2. Congestive heart failure - The patient has history of aortic stenosis, status post aortic valve replacement. Volume status is optimized with Torsemide 20 mg p.o. daily. 3. Hypertension - blood pressure is controlled with Amlodipine 10 mg p.o. daily and current use of diuretics. 4. Chronic hypophosphatemia - continue current dose of K-phos 500 mg p.o. daily.
[2021-05-02] MEDS: POTASSIUM CHLORIDE 10 MEQ SR TABLET PO SCH (21:50)
[2021-05-02] MEDS: hydrOXYzine 25 MG TAB PO SCH (21:50)
[2021-05-02] MEDS: aMILoride 5 MG TAB PO SCH (21:51)
[2021-05-02] MEDS: TORSEMIDE 20 MG TAB PO SCH (21:51)
[2021-05-02 22:00] VITALS: BP 137/85
[2021-05-03 06:00] VITALS: BP 132/71
[2021-05-03 07:45] LABS: HEMATOCRIT 34.3 % (42.0-52.0); HEMOGLOBIN 10.6 g/dl (13.5-17.5); MEAN CORPUSCULAR HEMOGLOBIN 29.4 pg (27.0-33.0); MEAN CORPUSCULAR HGB CONC 30.9 g/dl (32.0-36.5); MEAN CORPUSCULAR VOLUME 95.3 fl (80.0-96.0); PLATELET COUNT, AUTOMATED 202 10^3/uL (150-450)
[2021-05-03 08:01] LABS: BLOOD UREA NITROGEN 15 MG/DL (7-18); CALCIUM LEVEL 9.1 MG/DL (8.8-10.2); CARBON DIOXIDE LEVEL 31 MEQ/L (21-32); CHLORIDE LEVEL 104 MEQ/L (98-107); CREATININE FOR GFR 0.56 MG/DL (0.70-1.30); GLOMERULAR FILTRATION RATE > 60.0 (>42); GLUCOSE, FASTING 130 MG/DL (70-100); INR 2.52; POTASSIUM SERUM 3.8 MEQ/L (3.5-5.1); PROTHROMBIN TIME 27.6 SECONDS (12.7-14.5); SODIUM LEVEL 139 MEQ/L (136-145)
[2021-05-03] MEDS: predniSONE 5 MG TAB PO SCH (08:47)
[2021-05-03] MEDS: LACTOBACILLUS ACIDOPHILUS CAP (BACID) PO SCH ×4 (08:47→21:09)
[2021-05-03] MEDS: VITAMIN B COMPLEX/VIT C CAP PO SCH (08:49)
[2021-05-03] MEDS: K-PHOS ORIGINAL (POT.ACID PHOSPHATE) 500MG TAB PO SCH (08:50)
[2021-05-03] MEDS: SENNA 8.6 MG TAB (SENOKOT) PO SCH ×2 (08:50→21:10)
[2021-05-03] MEDS: DIGOXIN 0.125 MG TAB PO SCH (08:50)
[2021-05-03] MEDS: CLOPIDOGREL 75 MG TAB PO SCH (08:51)
[2021-05-03] MEDS: MORPHINE 15 MG SA TAB PO SCH ×2 (08:52→21:13)
[2021-05-03] MEDS: SIROLIMUS 1 MG TAB (RAPAMUNE) PO SCH (08:53)
[2021-05-03] MEDS: GABAPENTIN 300 MG CAP PO SCH ×3 (08:53→21:11)
[2021-05-03] MEDS: CINACALCET 30 MG TAB (SENSIPAR) PO SCH (09:02)
[2021-05-03] MEDS: MAGNESIUM OXIDE 400MG TAB (MAG-OX) PO SCH ×2 (12:01→21:09)
--- NOTE | 2021-05-03 12:40 | ECHO ---
ECHOCARDIOGRAM DATE OF PROCEDURE: 04/30/2021 Age: Gender: Height: Weight: Location of Patient: Room 4229 REFERRING PHYSICIAN: Aurelia Lundberg MD REASON FOR THE TESTING: Preoperative evaluation. MEASUREMENTS: 2-D measurement: IVS 1.3 cm LV 4.5 cm LVPW 1.3 cm LA 4.0 cm Doppler measurement: Peak velocity across the aortic valve 2.2 m/s Peak velocity across the LVOT 1.0 m/s Peak gradient across the aortic valve 20 mmHg Mean gradient across the aortic valve 11 mmHg Peak gradient across the mitral valve 7 mmHg Mean gradient across the mitral valve 3 mmHg Maximum tricuspid valve velocity 2.6 m/s 2D COMMENTS: 1. Normal left ventricular size with mildly increased left ventricular wall thickness. Overall, globular left ventricular systolic function was normal. Estimated at 55% to 60%. 2. Mildly dilated left atrium. Normal right atrium and right ventricle. 3. The atrial septum appears to be normal without evidence of defect or shunt. 4. Normal aortic root. 5. Bioprosthetic valve noted in the aortic valve position, atrial excursion was not well visualized. 6. Moderately calcified mitral valve annulus with normal anterior mitral valve leaflet. Normal tricuspid valve and pulmonic valve. The proximal pulmonary artery branches also appear to be normal in size. 7. The inferior vena cava was not well visualized. Doppler detects mild to moderate mitral regurgitation, mild tricuspid regurgitation. The calculated pulmonary artery systolic pressure varies between 30 to 40 mmHg. Assessment of the left ventricular diastolic function was limited. IMPRESSION: 1. Normal global left ventricular systolic function with mild concentric left ventricular hypertrophy. Assessment of the left ventricular diastolic function was limited. 2. Bioprosthetic aortic valve with normal function. No evidence of aortic regurgitation. 3. Mitral annular calcification with a mildly enlarged left atrium and mild to moderate mitral regurgitation. There was trivial calcific mitral stenosis. 4. Mild tricuspid regurgitation with mild to moderate hypertension. The report was discussed with the hospitalist covering.
[2021-05-03] MEDS: oxyCODONE 5MG TAB PO PRN (14:55)
[2021-05-03] MEDS ORDERED: BISACODYL 10 MG SUPP PR PRN (18:10)
[2021-05-03] MEDS: WARFARIN SOD 3MG TAB PO SCH (18:51)
[2021-05-03] MEDS: hydrOXYzine 25 MG TAB PO SCH (21:11)
[2021-05-03] MEDS: TORSEMIDE 20 MG TAB PO SCH (21:11)
[2021-05-03] MEDS: POTASSIUM CHLORIDE 10 MEQ SR TABLET PO SCH (21:12)
[2021-05-03] MEDS: aMILoride 5 MG TAB PO SCH (21:12)
--- NOTE | 2021-05-03 21:17 | IPN ---
NEPHROLOGY PROGRESS NOTE DATE: 05/03/2021 SUBJECTIVE: Patient was seen and examined at the bedside today morning. He was lying in the bed and resting when I saw him in the morning. There is no interval change from yesterday. OBJECTIVE: VITAL SIGNS: Temperature 97.6 degrees Fahrenheit, blood pressure 132/71, pulse 73, respiratory rate 18, saturating 100% on room air. INTAKE/OUTPUT: Urine output recorded as 1.5 liters yesterday and 925 mL so far today. Weight in the bed scale was 56.2 kg. PHYSICAL EXAMINATION: GENERAL: Patient is lying in bed in no apparent distress. HEAD/NECK: Pupils equally round and reactive to light. Mucous membranes are moist. Neck is supple. There is no JVD. CVS: S1, S2, regular rate. No edema of the bilateral lower extremities. RESPIRATORY: Chest is clear to auscultation bilaterally. ABDOMEN: Soft, old surgical scars are noted. MUSCULOSKELETAL: Patient has dislocated left shoulder. Left above knee amputation is noted. 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 LABORATORY REVIEW: CBC showed WBC 7, hemoglobin 10.6, platelets 202,000. BMP shows sodium 139, potassium 3.8, chloride 104, bicarb 31, BUN 15, creatinine 0.5. Calcium 9.1. CURRENT INPATIENT MEDICATIONS: Patient's medications were all reviewed by myself. There is no significant change in the medications today as compared with yesterday. ASSESSMENT AND PLAN: 1. Renal allograft status: Patient's renal function is stable at this time. Electrolytes are mostly within the acceptable range. Continue current immunosuppressive therapy. 2. Congestive heart failure and lower extremity edema: Volume status is optimized with Torsemide 20 mg p.o. daily. 3. Hypertension: Continue current dose of Amlodipine. 4. Chronic hypophosphatemia: Continue current dose of K-Phos. 5. Hypomagnesemia: Continue current dose of Amiloride and he has been restarted on magnesium oxide tablets. DISPOSITION: Patient's renal function is stable at baseline. Continue current immunosuppressive therapy. Nephrology service is going to sign off at this moment. Please call nephrology for any help in the management of this patient during this hospitalization.
[2021-05-03 22:00] VITALS: BP 120/84
[2021-05-04] MEDS: oxyCODONE 5MG TAB PO PRN ×4 (01:27→22:03)
[2021-05-04 06:00] VITALS: BP 128/83
[2021-05-04 06:35] LABS: HEMATOCRIT 37.5 % (42.0-52.0); HEMOGLOBIN 11.7 g/dl (13.5-17.5); MEAN CORPUSCULAR HEMOGLOBIN 29.3 pg (27.0-33.0); MEAN CORPUSCULAR HGB CONC 31.2 g/dl (32.0-36.5); PLATELET COUNT, AUTOMATED 211 10^3/uL (150-450); RED BLOOD COUNT 3.99 10^6/uL (4.30-6.10); WHITE BLOOD COUNT 8.3 10^3/uL (4.0-10.0)
[2021-05-04 06:48] LABS: INR 2.41; PROTHROMBIN TIME 26.6 SECONDS (12.7-14.5)
[2021-05-04 07:00] LABS: BLOOD UREA NITROGEN 17 MG/DL (7-18); CALCIUM LEVEL 9.6 MG/DL (8.8-10.2); CARBON DIOXIDE LEVEL 30 MEQ/L (21-32); CHLORIDE LEVEL 102 MEQ/L (98-107); CREATININE FOR GFR 0.64 MG/DL (0.70-1.30); GLOMERULAR FILTRATION RATE > 60.0 (>42); GLUCOSE, FASTING 132 MG/DL (70-100); SODIUM LEVEL 138 MEQ/L (136-145)
[2021-05-04] MEDS: LACTOBACILLUS ACIDOPHILUS CAP (BACID) PO SCH ×4 (09:56→20:47)
[2021-05-04] MEDS: predniSONE 5 MG TAB PO SCH (09:56)
[2021-05-04] MEDS: VITAMIN B COMPLEX/VIT C CAP PO SCH (09:56)
[2021-05-04] MEDS: SIROLIMUS 1 MG TAB (RAPAMUNE) PO SCH (10:05)
[2021-05-04] MEDS: MAGNESIUM OXIDE 400MG TAB (MAG-OX) PO SCH ×2 (10:07→20:48)
[2021-05-04] MEDS: CLOPIDOGREL 75 MG TAB PO SCH (10:07)
[2021-05-04] MEDS: GABAPENTIN 300 MG CAP PO SCH ×3 (10:07→20:48)
[2021-05-04] MEDS: SENNA 8.6 MG TAB (SENOKOT) PO SCH ×2 (10:07→20:47)
[2021-05-04] MEDS: DIGOXIN 0.125 MG TAB PO SCH (10:07)
[2021-05-04] MEDS: MORPHINE 15 MG SA TAB PO SCH ×2 (10:08→20:48)
[2021-05-04] MEDS: K-PHOS ORIGINAL (POT.ACID PHOSPHATE) 500MG TAB PO SCH (10:10)
[2021-05-04] MEDS: ONDANSETRON 4 MG TAB PO PRN (11:55)
[2021-05-04] MEDS: WARFARIN SOD 3MG TAB PO SCH (16:00)
[2021-05-04] MEDS: TORSEMIDE 20 MG TAB PO SCH (20:47)
[2021-05-04] MEDS: aMILoride 5 MG TAB PO SCH (20:47)
[2021-05-04] MEDS: POTASSIUM CHLORIDE 10 MEQ SR TABLET PO SCH (20:48)
[2021-05-04] MEDS: hydrOXYzine 25 MG TAB PO SCH (20:48)
[2021-05-05] MEDS: oxyCODONE 5MG TAB PO PRN ×3 (04:29→17:26)
[2021-05-05 06:00] VITALS: BP 104/58
[2021-05-05 06:32] LABS: HEMATOCRIT 34.4 % (42.0-52.0); HEMOGLOBIN 10.6 g/dl (13.5-17.5); MEAN CORPUSCULAR HGB CONC 30.8 g/dl (32.0-36.5); MEAN CORPUSCULAR VOLUME 94.2 fl (80.0-96.0); PLATELET COUNT, AUTOMATED 190 10^3/uL (150-450); RED BLOOD COUNT 3.65 10^6/uL (4.30-6.10); WHITE BLOOD COUNT 7.4 10^3/uL (4.0-10.0)
[2021-05-05 06:39] LABS: INR 2.8; PROTHROMBIN TIME 29.9 SECONDS (12.7-14.5)
[2021-05-05 06:54] LABS: BLOOD UREA NITROGEN 16 MG/DL (7-18); CALCIUM LEVEL 9.1 MG/DL (8.8-10.2); CARBON DIOXIDE LEVEL 31 MEQ/L (21-32); CHLORIDE LEVEL 101 MEQ/L (98-107); GLOMERULAR FILTRATION RATE > 60.0 (>42); GLUCOSE, FASTING 126 MG/DL (70-100); POTASSIUM SERUM 4.2 MEQ/L (3.5-5.1); SODIUM LEVEL 137 MEQ/L (136-145)
[2021-05-05] MEDS: predniSONE 5 MG TAB PO SCH (09:40)
[2021-05-05] MEDS: SENNA 8.6 MG TAB (SENOKOT) PO SCH (09:40)
[2021-05-05] MEDS: CINACALCET 30 MG TAB (SENSIPAR) PO SCH (09:40)
[2021-05-05] MEDS: SIROLIMUS 1 MG TAB (RAPAMUNE) PO SCH (09:41)
[2021-05-05] MEDS: K-PHOS ORIGINAL (POT.ACID PHOSPHATE) 500MG TAB PO SCH (09:41)
[2021-05-05] MEDS: DIGOXIN 0.125 MG TAB PO SCH (09:41)
[2021-05-05] MEDS: LACTOBACILLUS ACIDOPHILUS CAP (BACID) PO SCH ×2 (09:41→12:24)
[2021-05-05] MEDS: GABAPENTIN 300 MG CAP PO SCH (09:42)
[2021-05-05 09:43] VITALS: BP 137/80
[2021-05-05] MEDS: CLOPIDOGREL 75 MG TAB PO SCH (09:43)
[2021-05-05] MEDS: MAGNESIUM OXIDE 400MG TAB (MAG-OX) PO SCH (09:43)
[2021-05-05] MEDS: VITAMIN B COMPLEX/VIT C CAP PO SCH (09:44)
[2021-05-05] MEDS: MORPHINE 15 MG SA TAB PO SCH (09:44)
[2021-05-05] MEDS ORDERED: MAGN400T2 PO (11:58)
[2021-05-05] MEDS ORDERED: OXYC-517 PO (11:58)
[2021-05-05] MEDS ORDERED: MORP15TASA PO (11:58)
[2021-05-05] MEDS ORDERED: SENN18TA PO (11:58)
[2021-05-05] MEDS ORDERED: VARIBAR NECTAR 40% w/v 240ML SUSP BTL As Ordered ONE (11:59)
[2021-05-05] MEDS ORDERED: VARIBAR PUDDING 40% w/v 230ML TUBE As Ordered ONE (11:59)
[2021-05-05] MEDS ORDERED: BARIUM SULFATE 700 MG TABLET (E-Z-DISK) As Ordered ONE (12:00)
[2021-05-05] MEDS ORDERED: E-Z-PAQUE 96% w/w SUSP 176GM BTL As Ordered ONE (12:00)
[2021-05-05 14:00] VITALS: BP 105/43
--- NOTE | 2021-05-05 17:05 | DS.PDOC ---
Discharge Summary General Date of Admission Apr 29, 2021 at 16:55 Date of Discharge 05/05/2021 Attending Physician: MANNY HERRERA MD Discharge Summary PROCEDURES PERFORMED DURING STAY: None ADMITTING DIAGNOSES: chest pain Anterior dislocation of L shoulder chronic shoulder pain DISCHARGE DIAGNOSES: Denies chest pain, SOB. PAST MEDICAL HISTORY: CAD s/p cardiac stent x2 Aortic Stenosis s/p TAVR ESRD s/p renal transplant on immunosuppressants Chronic Afib Diffuse joints arthritis Compression fxs (back), with herniated disc x5 Dysphagia COMPLICATIONS/CHIEF COMPLAINT: Chest Pain, Dislocation Shoulder Anterior. HISTORY OF PRESENT ILLNESS: 76M with aortic stenosis s/p TAVR 2wks prior to presentation on Warfarin, Afib on Warfarin, chronic bilateral shoulder pain with history of rotator cuff tears, diffuse arthritis, ESRD s/p transplant on immunosuppressive agents who presented w/ worsening b/l shoulder pain with worsening right shoulder pain that he describes as severe and aching as well as new onset severe aching left shoulder pain that radiates down his left arm, along the left side of his body, and into his RLE, reporting that pain worsened after his TAVR and he f/u w/ [facility] ortho 04/24 where he had normal b/l shoulder xrays in office on 04/24 and he received b/l shoulder cortisone injections at that visit. He reported that he is pushed in his wheelchair at home and is moved by family when necessary and otherwise denied any recent trauma. He also reported right sided neck pain where he had a central line during his recent TAVR and otherwise had chronic back pain, weakness, numbness b/l UE. HOSPITAL COURSE: On speaking with his PA in the orthopedic office, he did not have injections to his shoulder. He has long standing rotator cuff tears with chronic shoulder injuries and pain that he was planning to send him to the pain clinic as these have been deemed non-surgical at this time given his chronic comorbidities. While inpatient, he had a CTA of the chest given the chest pain after EKG showed a known LBBB with negative troponin and he did not have a PE but instead CT chest showed evidence of a left shoulder anterior dislocation with significant effusion, suggestive of a subacute dislocation. Orthopedics was consulted and re commended a shoulder MRI and in the meantime spoke with [facility] that corrected that the patient had not had any x-ray imaging of his shoulders since before his heart valve replacement procedure in early March. The most that was commented about his visit on 04/24 which was actually related to his back was that he was known to have bilateral shoulder effusions and fullness. He did not receive cortisone injections on Tuesday as he had stated nor did he receive any x-ray imaging of his shoulders on 04/24. He had an MRI of the L shoulder that demonstrated evidence of a massive left joint effusion with synovial thickening and nodularity as well as a complete rotator cuff tear with fluid between the humeral head and acromion and displacement of a thickened biceps tendon. There was also noted to be a large area of erosive change to the glenoid. According to ortho (Dr. Braden) this MRI evidence, including the inflamed synovium and massive effusion support the idea that this is a dislocation more chronic in nature and he suspected that the erosive glenoid wear is the reason that the patient's relocation of the shoulder in the emergency room did not remain reduced. In conclusion, he believed that the patient has had a chronic dislocation of the shoulder with associated erosion of the glenoid which is preventing the humeral head from remaining reduced after the emergency room attempts at reduction and he did not believe it would remain and located without any surgical intervention for which the patient was not a candidate, based on his multiple medical comorbidities and his poor wound healing capacity, and opinion which was supported by the office visit notes of [facility] orthopedic group where they had declined surgical intervention as well for his known rotator cuff injuries. Dr. Braden reviewed the patient's case on the day of admission with the [facility] upper extremity orthopedic surgeon, Dr. Bradshaw, who stated that in such situations the nonreducible shoulder was typically left dislocated until the patient had enough pain and symptoms for consideration of a reverse total shoulder arthroplasty but unfortunately this is not an option for the patient. I therefore focused mostly on pain management. In the meantime, ACS workup was negative with a known LBBB that was previously incomplete but is now complete post TAVR, negative troponins, stable telemetry, no effect on pain by SLN and eventual improvement with oxycodone. 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 Mulligan. We consulted Dr. Mulligan for his AKA open stump wound that did not appear infected and he gave recommendations for care, requested a CTA with runoff to investigate adequate blood supply/degree of PVD given the delayed healing, which he had and it showed significant disease but not critical. He will follow up in wound care clinic shortly. I adjusted his pain medications and he is now going to be discharged on 15mg morphine ER BID, and 5Q4P oxycodone with close ortho, wound care, nephrology follow up, with home PT/OT and home services. Also of note, he had noted episodic difficulty swallowing and had a swallow eval that recommended a cookie swallow evaluation with the final recommendations of a pureed diet, therapy for family to modify foods as necessary, and he can have thin liquids. Speech also recommended referral to GI as patient was noted to belch after every sip of liquids and GI referral is noted at discharge. DISCHARGE MEDICATIONS: Please see below. ALLERGIES: Please see below. PHYSICAL EXAMINATION ON DISCHARGE: VITAL SIGNS: Please see below. GEN: sitting in wheelchair, agitated and frustrated during conversation regarding potential d/c, alert and awake HEENT: NC/AT, EOMI, dry mucous membranes, nares patent CARDIO: normal heart sounds, RRR, systolic murmur, no RG PULM: CTA b/l, no WRR, no accessory muscles used ABD: normal BS, generalized abd pain w/ mild palpation (s/p TAVR), guarding, nondistended SKIN: significant bruising right neck/collarbone, b/l UE; IV in right EJV (site clean, w/out bleeding or signs of infxn); allevyn bandages over stage1 pressure ulcer x2 right scapula intact, clean; allevyn bandage over LUE skin tear intact, clean EXTREMITIES: no edema RLE, AKA LLE, limited ROM b/l UE (45degree active flexion b/l shoulders), swelling around left shoulder LABORATORY DATA: Please see below. IMAGING: CXR (04/29) No acute pulmonary disease CTA (04/29) No CT evidence of pulmonary embolism. No infiltrate seen. Anterior dislocation of the left humeral head. Moderate to large effusion of the left glenohumeral joint with scattered periarticular calcifications. Stable chronic compression deformities of lower thoracic spine. Diffuse sclerotic density throughout the T9 vertebral body appears to represent a healing fracture at this location. Left shoulder xray (04/29) Right humeral head dislocation Echocardiogram (04/30) Pending report MRI Left shoulder (04/30) 1. Severe motion artifact and suggest repeating the scan with the patient sedated. 2. Massive left joint effusion with synovial thickening and nodularity. 3. Considerations include rheumatoid arthritis, septic arthritis, PVNS and Lyme disease. 4. Complete rotator cuff tear with fluid between the humeral head and acromion. Suspect severe medial displacement of a thickened biceps tendon. PROGNOSIS: Good ACTIVITY: As tolerated. Family had safe transfer training with PT. DIET: Pureed diet with thin liquids DISCHARGE PLAN: Home with services, PT/OT and close ortho, PCP/nephrology and wound care follow up DISPOSITION: Home with services DISCHARGE INSTRUCTIONS: Home with services, PT/OT and close ortho, PCP/nephrology and wound care follow up ITEMS TO FOLLOWUP ON ON OUTPATIENT: pain management nephrology follow up orthopedics follow up AKA stump wound follow up DISCHARGE CONDITION: Stable TIME SPENT ON DISCHARGE: 76 minutes. Vital Signs/I&Os Vital Signs Date Time Temp Pulse Resp B/P (MAP) Pulse Ox O2 Delivery O2 Flow Rate FiO2 05/05/21 13:07 18 Room Air 05/05/21 09:43 92 137/80 05/05/21 06:00 97.0 95 I&O- Last 24 Hours up to 6 AM 05/05/21 06:00 Intake Total 880 ml Output Total 1150 ml Balance -270 ml Laboratory Data Labs 24H Laboratory Tests 2 05/05/21 06:00: Nucleated Red Blood Cells % (auto) 0.0, Prothrombin Time 29.9H, Prothromb Time International Ratio 2.80, Anion Gap 5L, Glomerular Filtration Rate > 60.0, Calcium Level 9.1 CBC/BMP Laboratory Tests 05/05/21 06:00 Discharge Medications Scheduled Amiloride HCl (Amiloride HCl) 5 Mg Tablet, 5 MG PO QHS, (Reported) Amlodipine Besylate (Amlodipine Besylate) 10 Mg Tablet, 10 MG PO DAILY, (Reported) Azathioprine (Azathioprine) 50 Mg Tablet, 100 MG PO DAILY, (Reported) Cinacalcet (Sensipar) 30 Mg Tablet, 30 MG PO 3XW, (Reported) SUN, TUES, THURS Clopidogrel Bisulfate (Clopidogrel) 75 Mg Tablet, 75 MG PO DAILY, (Reported) Digoxin (Digoxin) 125 Mcg Tablet, 125 MCG PO DAILY, (Reported) Gabapentin (Gabapentin) 300 Mg Capsule, 600 MG PO TID, (Reported) Hydroxyzine HCl (Hydroxyzine HCl) 25 Mg Tablet, 25 MG PO QHS, (Reported) L.acidoph/L.bulg/B.bif/S.therm (Diane-Bid Caplet) 1 Each Tablet, 1 TAB PO WMHS, (Reported) Magnesium Oxide (Magnesium Oxide) 400 Mg Tablet, 800 MG PO BID Morphine Sulfate (Morphine Sulfate ER) 15 Mg Tablet.er, 15 MG PO BID Potassium Chloride (Potassium Chloride) 10 Meq Tab.er.prt, 20 MEQ PO QHS, (Reported) Potassium Phosphate Monobasic (K-Phos Original) 500 Mg Tablet.kasey, 500 MG PO DAILY, (Reported) Prednisone (Prednisone) 5 Mg Tablet, 5 MG PO DAILY, (Reported) Senna (Senna Lax) 8.6 Mg Tablet, 2 TAB PO BID Sirolimus (Sirolimus) 1 Mg Tablet, 2 MG PO DAILY, (Reported) Torsemide (Torsemide) 20 Mg Tablet, 20 MG PO QHS, (Reported) Vitamin B Complex Vit C No.3 (B Complex with Vitamin C) 1 Cap Cap, 1 CAP PO DAILY, (Reported) Warfarin Sodium (Warfarin Sodium) 3 Mg Tablet, 3 MG PO QPM, (Reported) Scheduled PRN Acetaminophen (Acetaminophen) 325 Mg Tablet, 650 MG PO Q4H PRN for MILD PAIN (PS 1-4), (Reported) Carisoprodol (Carisoprodol) 350 Mg Tablet, 350 MG PO BID PRN for SPASMS, (Reported) Docusate Sodium (Colace) 100 Mg Capsule, 100 MG PO DAILY PRN for CONSTIPATION, (Reported) Melatonin (Melatonin) 10 Mg Tablet, 10 MG PO QHS PRN for SLEEP, (Reported) Ondansetron HCl (Ondansetron HCl) 4 Mg Tablet, 4 MG PO Q8H PRN for NAUSEA OR VOMITING, (Reported) Oxycodone HCl (Oxycodone HCl) 5 Mg Tablet, 5 MG PO Q4HP PRN for SEVERE PAIN (PS 8-10) Allergies Coded Allergies: Quinolones (Verified Allergy, Unknown, 04/29/21) oxybutynin (Verified Allergy, Unknown, 04/29/21) tamsulosin (Verified Allergy, Unknown, 04/29/21) ciprofloxacin (Verified Adverse Reaction, Intermediate, HEART RACES, 04/29/21) levofloxacin (Verified Adverse Reaction, Intermediate, HEART RACES, 04/29/21) amoxicillin (Verified Adverse Reaction, Mild, can take few prior to dentist but can not take for 10 days, 04/29/21) cefuroxime (Verified Adverse Reaction, Mild, ANXIETY, 04/29/21) codeine (Verified Adverse Reaction, Mild, AGITATION, 04/29/21) doxycycline (Verified Adverse Reaction, Mild, UPSET STOMACH, 04/29/21) lorazepam (Verified Adverse Reaction, Mild, AGITATION, 04/29/21) pregabalin (Verified Adverse Reaction, Mild, ANXIETY, DROWSINESS, 04/29/21) tizanidine (Verified Adverse Reaction, Unknown, 04/29/21) MANNY HERRERA MD May 05, 2021 14:15
--- NOTE | 2021-05-05 17:06 | REP ---
INDICATION: per speech. COMPARISON: NONE TECHNIQUE: The procedure was performed under the direct supervision of . The procedure was performed with Jolene King from speech pathology present. 0.8 minutes of fluoroscopy time was utilized for this procedure. FINDINGS: The patient was assessed upon entering the room. The patient is in an upright position and conversing appropriately. A video pharyngo esophagram was then performed. Thin barium: The patient was instructed to take the swallow 3 strong. The patient immediately aspirated with cough response. The patient was then instructed to take a drinking from a cup. With this there is no evidence of penetration or aspiration. The patient was then instructed to take a smaller drink from a straw. Again, with this there was no evidence of penetration or aspiration. [place]: The patient was instructed to take a swallow through a straw. There is no evidence of penetration or aspiration. Pudding: The patient was given a 5 cc aliquots of pudding with a spoon. There is no evidence of penetration or aspiration. A detailed report of this examination will be provided by speech pathology. IMPRESSION: With thin barium through a straw there is aspiration with cough response. RECOMMENDATION: A detailed report of this examination will be provided by speech pathology. IMPRESSION: A detailed report of this examination will be provided by speech pathology. <Electronically signed by Jordan Briceño > 05/05/21 1631 <Electronically signed by Rene Warner > 05/05/21 1707
== END 2021-05-05 18:00 | disposition home health service (06) | DRG 563 ==
LOC: M ED 10:05 → M ED INP 16:55 → ENRESERV 17:24 → M MSPAV 18:05
PROVIDERS: ADMIT Internal Medicine; ATTEND Internal Medicine
PROC: 0RSKXZZ Reposition Left Shoulder Joint, External Approach (ICD-10-PCS; principal; 2021-04-30)
DX: M24.412 Recurrent dislocation, left shoulder (principal); I48.20 Chronic atrial fibrillation, unspecified; Z94.0 Kidney transplant status; N25.81 Secondary hyperparathyroidism of renal origin; I50.32 Chronic diastolic (congestive) heart failure; I44.60 Unspecified fascicular block; I25.10 Atherosclerotic heart disease of native coronary artery without angina pectoris; Z95.2 Presence of prosthetic heart valve; Z79.01 Long term (current) use of anticoagulants; M19.90 Unspecified osteoarthritis, unspecified site; Z79.899 Other long term (current) drug therapy; Z79.52 Long term (current) use of systemic steroids; Z88.8 Allergy status to other drugs, medicaments and biological substances; Z88.0 Allergy status to penicillin; Z87.442 Personal history of urinary calculi; Z85.828 Personal history of other malignant neoplasm of skin; Z89.612 Acquired absence of left leg above knee; Z87.891 Personal history of nicotine dependence; I11.0 Hypertensive heart disease with heart failure; E83.39 Other disorders of phosphorus metabolism; E83.42 Hypomagnesemia

== ENCOUNTER 2021-05-21 22:33 | Emergency (ER) | payer MEDICARE ==
[~2021-05-21] VITALS: Ht 172.7 cm; Wt 58.2 kg
[~2021-05-21 22:33] MED LIST changes: +CARI1TAB7 PO; +CLOP75TA2 PO; +MAGN400T2 PO; +MORP-69 PO; +MORP15TASA PO; +RA M10TA PO; +SIRO1TAB3 PO; +TAMS1CAP17
[2021-05-22] VITALS (9 sets, daily range): BP systolic 93–117; BP diastolic 56–73
[2021-05-22 00:45] LABS: BASO % 0.1 % (0.0-1.0); HEMATOCRIT 22.7 % (42.0-52.0); HEMOGLOBIN 7.2 g/dl (13.5-17.5); LYMPH # 1.2 10^3/uL (1.5-5.0); LYMPH % 8.4 % (24.0-44.0); MEAN CORPUSCULAR HEMOGLOBIN 29.4 pg (27.0-33.0); MEAN CORPUSCULAR HGB CONC 31.7 g/dl (32.0-36.5); MEAN CORPUSCULAR VOLUME 92.7 fl (80.0-96.0); MONO % 6.6 % (2.0-8.0); NEUTROPHILS # 12.2 10^3/uL (1.5-8.5); NEUTROPHILS % 83.6 % (36.0-66.0); PLATELET COUNT, AUTOMATED 264 10^3/uL (150-450); RED BLOOD COUNT 2.45 10^6/uL (4.30-6.10); WHITE BLOOD COUNT 14.6 10^3/uL (4.0-10.0)
--- NOTE | 2021-05-22 00:54 | REPVR ---
PROCEDURE INFORMATION: Exam: US Duplex Left Upper Extremity Veins, Limited Exam date and time: 05/21/2021 12:14 AM Age: 76 years old Clinical indication: Pain; Arm, upper; Left; Additional info: Swelling/pain TECHNIQUE: Imaging protocol: Real-time Duplex ultrasound of the Left Upper Extremity with 2-D colón scale, color Doppler flow and spectral waveform analysis with image documentation. Limited exam focused on the left upper extremity veins. COMPARISON: US DUPLEX EXT UPPER VEINS UNILATE 07/03/2019 9:43 AM FINDINGS: Left deep veins: Unremarkable. Axillary and brachial veins are patent throughout without thrombus. Normal Doppler waveforms. Normal compressibility and/or augmentation response. Visualized internal jugular and subclavian veins are patent. Left superficial veins: Unremarkable. Visualized cephalic and basilic veins are patent without thrombus. Soft tissues: Generalized subcutaneous edema. IMPRESSION: 1. No evidence of deep vein thrombosis. 2. Subcutaneous edema. Possible cellulitis versus venous insufficiency, central venous stenosis, or other causes of systemic edema. Drainable abscess. Electronically signed by: Philip Zavala On 05/22/2021 00:53:58 AM
[2021-05-22] MEDS: MORPHINE 2 MG/ML 1ML VIAL (J2270) IV PRN ×2 (01:06→03:28)
--- NOTE | 2021-05-22 01:07 | REPVR ---
PROCEDURE INFORMATION: Exam: XR Chest Exam date and time: 05/22/2021 12:57 AM Age: 76 years old Clinical indication: Other: Dyspnea/cough TECHNIQUE: Imaging protocol: XR of the chest. Views: 1 view. COMPARISON: CR PORTABLE CHEST X-RAY 04/29/2021 10:24 AM FINDINGS: Lungs: Clear. No consolidation. Pleural spaces: No pleural effusion. No pneumothorax. Heart/Mediastinum: Mild cardiomegaly. Vasculature: An aortic valve stent is noted. Bones/joints: Changes of prior fusion in the cervical and thoracic spine. Prior upper thoracic vertebroplasty. IMPRESSION: 1. No acute findings. 2. Chronic changes as above. Electronically signed by: Philip Zavala On 05/22/2021 01:07:22 AM
[2021-05-22 01:32] LABS: RSV AMPLIFICATION NEGATIVE (NEGATIVE)
[2021-05-22 01:36] LABS: PARTIAL THROMBOPLASTIN TIME 160.4 SECONDS (25.9-37.0); PROTHROMBIN TIME > 150.0 SECONDS (12.7-14.5)
[2021-05-22 02:00] LABS: ALBUMIN 2.7 GM/DL (3.2-5.2); ALT/SGPT 28 U/L (12-78); BILIRUBIN,DIRECT 0.2 MG/DL (0.0-0.2); BILIRUBIN,TOTAL 0.7 MG/DL (0.2-1.0); BLOOD UREA NITROGEN 30 MG/DL (7-18); C REACTIVE PROTEIN QUANTITATIV 4.83 MG/DL (0.00-0.30); CALCIUM LEVEL 8.8 MG/DL (8.8-10.2); CARBON DIOXIDE LEVEL 26 MEQ/L (21-32); CHLORIDE LEVEL 98 MEQ/L (98-107); CK-MB VALUE MASS 26.1 NG/ML (<3.6); CPK CREATINE PHOSPHOKINASE 248 U/L (39-308); CREATININE FOR GFR 0.68 MG/DL (0.70-1.30); GLOMERULAR FILTRATION RATE > 60.0 (>42); GLUCOSE, FASTING 130 MG/DL (70-100); MB/CK RELATIVE INDEX 10.52 (< OR =4); NT-PRO BNP 3641 PG/ML (<450); POTASSIUM SERUM 5.2 MEQ/L (3.5-5.1); SODIUM LEVEL 130 MEQ/L (136-145); TROPONIN I 6.08 NG/ML (< 0.10)
[2021-05-22 02:11] LABS: ERYTHROCYTE SEDIMENTATION RATE 106 mm/hr (0-20)
[2021-05-22 02:34] LABS: PARTIAL THROMBOPLASTIN TIME 96.8 SECONDS (25.9-37.0)
[2021-05-22 02:36] LABS: D-DIMER QUANT 515.22 ng/ml (<500)
[2021-05-22] MEDS ORDERED: PHYTONADIONE 5 MG TAB PO ONE (03:00)
[2021-05-22 03:03] LABS: PROTHROMBIN TIME 140.5 SECONDS (12.7-14.5)
[2021-05-22 03:04] LABS: INR 21.3
[2021-05-22] MEDS ORDERED: PHYTONADIONE 10MG/ML INJECTION (J3430) SC ONE (04:00)
[2021-05-22] MEDS ORDERED: MORPHINE 2 MG/ML 1ML VIAL (J2270) IV ONE (04:55)
[2021-05-22] MEDS ORDERED: ONDANSETRON 4MG/2ML VIAL IV ONE (05:55)
--- NOTE | 2021-05-22 21:20 | ECGEPIP ---
[facility] - ED Test Date: 2021-05-22 Pat Name: ELDA JACOBSEN Department: Room: - Gender: Male Sk[place] Blockers: ed : 1945 Requested By: ASHLEY Rodriguez Order Number: [id number] Reading MD: Mine Hawley Measurements Intervals Stephen Rate: 90 P: MS: QRS: -58 QRSD: 152 T: 121 QT: 374 QTc: 457 Interpretive Statements Atrial fibrillation Left axis deviation Left bundle branch block similar 05/01/21 Electronically Signed on 05-22-2021 21:20:00 EDT by Mine Hawley
== END 2021-05-22 07:06 | disposition short-term general hospital (02) ==
LOC: M ED 22:33
DX: I21.4 Non-ST elevation (NSTEMI) myocardial infarction (principal); D68.32 Hemorrhagic disorder due to extrinsic circulating anticoagulants; D64.9 Anemia, unspecified; M79.602 Pain in left arm; I48.91 Unspecified atrial fibrillation; N18.6 End stage renal disease; Z87.891 Personal history of nicotine dependence; F12.10 Cannabis abuse, uncomplicated; Z88.6 Allergy status to analgesic agent; Z88.1 Allergy status to other antibiotic agents; Z88.8 Allergy status to other drugs, medicaments and biological substances
CPT/HCPCS: 36430; 71045; 80048; 80076; 80195; 82550; 82553; 83605; 83880; 84436; 84443; 84484; 85025; 85379; 85384; 85610; 85652; 85730; 86140; 86850; 86900; 86901; 86920; 86927; 87040; 87077; 87186; 87631; 93005; 93041; 93971; 94760; 96374; 96375; 96376; 99285; J2270; J2405; J3430; P9016; P9017